=== PATIENT | male | born 1980 | race Caucasian/White ===

== ENCOUNTER 2021-05-25 19:02 | Inpatient (IN) | payer OTHER ==
[2021-05-25] MEDS ORDERED: MORPHINE SULFATE 4 MG/ML SYRINGE IV STA (19:44)
[2021-05-25] MEDS ORDERED: SODIUM CHLORIDE 0.9% 1,000 ML IV STA (19:44)
--- NOTE | 2021-05-25 19:46 | ED ---
General Adult HPI - General Chief complaint: Abdominal Pain Stated complaint: Abd Pain Time Seen by Provider: 05/25/21 19:08 Source: patient, EMS Mode of arrival: EMS Limitations: no limitations - History of Present Illness Initial comments: Dictation was produced using [employer] dictation software. please excuse any grammatical, word or spelling errors. Chief Complaint: 41-year-old male withpast medical history presents to the emergency department for 3 days of abdominal pain History of Present Illness: Patient's 41-year-old male presents with worsening abdominal pain. States that the pain is to his lower suprapubic area. Patient states that the pain is severe. States that he is severely nauseated Tolerate any sort of oral intake. Patient denies any fever. States pain is nonradiating. He reports having tested positive for covid 19 8 days ago. He states he did not have any symptoms at that time. The ROS documented in this emergency department record has been reviewed and confirmed by me. Those systems with pertinent positive or negative responses have been documented in the HPI. All other systems are other negative and/or noncontributory. PHYSICAL EXAM: General Impression: Alert and oriented x3, acute distress second to pain, ashen HEENT: Normocephalic atraumatic, extra-ocular movements intact, pupils equal and reactive to light bilaterally, mucous membranes moist. Cardiovascular: Heart regular rate and rhythm Chest: Able to complete full sentences, no retractions, no tachypnea Abdomen: Tympanitic, guarding Musculoskeletal: Pulses present and equal in all extremities, no peripheral edema Motor: no focal deficits noted Neurological: CN II-XII grossly intact, no focal motor or sensory deficits noted Skin: Intact with no visualized rashes Psych: Normal affect and mood ED course: 41-year-old male presents emergency department for abdominal pain. Patient having severe symptoms. Vital signs upon arrival shows heart rate of 107, rest of vital signs within acceptable limits. There is suspicion for surgical abdomen Laboratory evaluation obtained. Leukocytosis of 11.5. Sodium 129. Mild gap acidosis with a bicarb of 18 and gap of 17. Slightly elevated renal markers. Rest of labs unremarkable. Computed tomography scan of the abdomen and pelvis shows inflammatory changes in the right lower quadrant with pneumoperitoneum. Case is discussed with Dr. Marsh who requests that patient restart antibiotics, IV fluids and that repeat labs be drawn at 6 in the morning. According to general surgeon there is no definitive surgical intervention at this time. - Related Data Allergies Allergy/AdvReac Type Severity Reaction Status Date / Time acetaminophen [From Tylenol] Allergy Chest Pain Verified 05/25/21 19:19 Review of Systems ROS Statement: Those systems with pertinent positive or pertinent negative responses have been documented in the HPI. ROS Other: All systems not noted in ROS Statement are negative. Past Medical History Past Medical History: No Reported History Past Surgical History: Hernia Repair Smoking Status: Former smoker Past Alcohol Use History: Occasional Past Drug Use History: None Reported General Exam Limitations: no limitations Course Vital Signs 05/25/21 19:14 Temperature 98.6 F Pulse Rate 107 H Respiratory 22 Rate Blood Pressure 127/73 O2 Sat by Pulse 96 Oximetry Medical Decision Making - Lab Data Result diagrams: 05/25/21 20:07 05/25/21 20:07 Lab Results 05/25/21 05/25/21 Range/Units 20:07 20:07 WBC 11.5 H (3.8-10.6) k/uL RBC 5.31 (4.30-5.90) m/uL Hgb 15.0 (13.0-17.5) gm/dL Hct 45.1 (39.0-53.0) % MCV 84.8 (80.0-100.0) fL MCH 28.2 (25.0-35.0) pg MCHC 33.2 (31.0-37.0) g/dL RDW 14.0 (11.5-15.5) % Plt Count 331 (150-450) k/uL MPV 7.7 Neutrophils % 91 % Lymphocytes % 3 % Monocytes % 4 % Eosinophils % 0 % Basophils % 0 % Neutrophils # 10.4 H (1.3-7.7) k/uL Lymphocytes # 0.4 L (1.0-4.8) k/uL Monocytes # 0.5 (0-1.0) k/uL Eosinophils # 0.0 (0-0.7) k/uL Basophils # 0.0 (0-0.2) k/uL Sodium 129 L (137-145) mmol/L Potassium 3.5 (3.5-5.1) mmol/L Chloride 94 L (98-107) mmol/L Carbon Dioxide 18 L (22-30) mmol/L Anion Gap 17 mmol/L BUN 27 H (9-20) mg/dL Creatinine 1.35 H (0.66-1.25) mg/dL Est GFR (CKD-EPI)AfAm 75 (>60 ml/min/1.73 sqM) Est GFR (CKD-EPI)NonAf 65 (>60 ml/min/1.73 sqM) Glucose 149 H (74-99) mg/dL Calcium 8.4 (8.4-10.2) mg/dL Total Bilirubin 1.5 H (0.2-1.3) mg/dL AST 48 (17-59) U/L ALT 32 (4-49) U/L Alkaline Phosphatase 99 (38-126) U/L Total Protein 7.2 (6.3-8.2) g/dL Albumin 3.6 (3.5-5.0) g/dL Lipase 113 (23-300) U/L Critical Care Time Critical Care Time: Yes Total Critical Care Time: 33 Disposition Clinical Impression: Pneumoperitoneum, Surgical abdomen Disposition: ADMITTED IP TO THIS [facility] Condition: Critical Referrals: Erin Luna MD [Primary Care Provider] - 1-2 days
[2021-05-25 20:16] LABS: Basophils % (A) 0 %; Eosinophils % (A) 0 %; HCT 45.1 % (39.0-53.0); Lymphocytes # (A) 0.4 k/uL (1.0-4.8); Lymphocytes % (A) 3 %; MCH 28.2 pg (25.0-35.0); MCHC 33.2 g/dL (31.0-37.0); MCV 84.8 fL (80.0-100.0); Mean Platelet Volume 7.7; Monocytes # (A) 0.5 k/uL (0-1.0); Monocytes % (A) 4 %; Neutrophils # (A) 10.4 k/uL (1.3-7.7); Neutrophils % (A) 91 %; Platelet Count 331 k/uL (150-450); RBC 5.31 m/uL (4.30-5.90); WBC 11.5 k/uL (3.8-10.6)
[2021-05-25] MEDS ORDERED: PIPERACILLIN-TAZOBACTAM 3.375 GM in SODIUM CHLORIDE 0.9% 100 ML IVPB STA (20:28)
[2021-05-25 20:32] LABS: Albumin 3.6 g/dL (3.5-5.0); Calcium 8.4 mg/dL (8.4-10.2); Potassium 3.5 mmol/L (3.5-5.1); Total Bilirubin 1.5 mg/dL (0.2-1.3); Total Protein 7.2 g/dL (6.3-8.2)
[2021-05-25] MEDS ORDERED: NALOXONE 0.4 MG/ML 1 ML VIAL IV PRN (20:59)
--- NOTE | 2021-05-25 21:05 | CT ---
EXAMINATION TYPE: CT abdomen pelvis w con DATE OF EXAM: 05/25/2021 COMPARISON: None HISTORY: lower anterior abdominal pain CT DLP: 2792.4 mGycm, Automated Exposure Control for Dose Reduction was Utilized. CONTRAST: CT scan of the abdomen and pelvis is performed with oral and with IV Contrast, patient injected with 100 mL of Isovue 300. FINDINGS: LUNG BASES: Scattered diffuse patchy, groundglass like opacities and nodular opacities. INCLUDED CARDIAC STRUCTURES: No cardiomegaly or pericardial effusion. LIVER: Nodular contour. Somewhat atrophic. GALLBLADDER : No significant abnormality is appreciated. BILIARY TREE: No abnormal biliary tree dilation. PANCREAS: No significant abnormality is seen. SPLEEN: No significant abnormality is seen. 1.2 cm round opacity lateral to the spleen may represent a splenule. ADRENALS: No significant abnormality is seen. KIDNEYS AND URETERS: No significant abnormality is seen. URINARY BLADDER: No significant abnormality is appreciated. PROSTATE: Unremarkable. GASTROINTESTINAL SYSTEM: No intestinal obstruction seen. No terminal ileal thickening. Irregularity i s seen in the cecum and proximal ascending colon. The appendix is not definitely identified. No diver ticulosis seen. HERNIAS: Small left fat-containing inguinal hernia. PERITONEUM/MESENTRY: There is large pneumoperitoneum. There is a 6 mm calculus in the right mid abdom en (image 48 series 201) series. Significant mesenteric stranding in the mid and lower abdomen and mo re to the right. There is free loculated fluid in the right mid and lower abdomen measuring up to 3.5 cm as annotated on the CT. The larger fluid collection (series 201 image 64) has an air-fluid level but no peripheral enhancement. Multiple prominent lymph nodes are scattered throughout the right mid and lower abdomen. LYMPH NODES: Prominent lymph nodes scattered the right mid and lower abdomen. No enlarged retroperito beltran or pelvic lymph nodes seen. MAJOR VASCULAR STRUCTURES: Nonaneurysmal aorta. Unremarkable inferior vena cava. OSSEOUS STRUCTURES: No significant abnormality is seen. Subchondral cyst in the left acetabulum. Left sacroiliac joint sclerosis. Endplate degenerative changes T11-12 and L5-S1. Mild facet joint arthrop athy lower lumbar spine with questionable bilateral pars interarticularis defect of L4. No Significan t soft tissue abnormality seen. IMPRESSION: 1. Pneumoperitoneum, free abdominal fluid in the right lower abdomen with air-fluid level but no zander pheral enhancement, nonvisualized appendix, small free-floating calcification measuring 6 mm in the r ight mid abdomen and mesenteric inflammation or infection. Findings concerning for either acute perforated appendix with appendicolith and/or bowel perforation, no diverticulosis and no terminal ileal thickening though it is difficult to exclude inflammatory berto wel disease. Abdominal phlegmon/abscess cannot be excluded. 2. Lower lung findings concerning for multifocal pneumonia. 3. Left SI joint inflammatory changes. Dr. Watson called Dr. Manzano with above findings. Communication acknowledged.
[2021-05-25] MEDS: SODIUM CHLORIDE 0.9% 1,000 ML IV SCH (21:37)
[2021-05-25] MEDS ORDERED: MORPHINE SULFATE 4 MG/ML SYRINGE IVP PRN (22:24)
[2021-05-25] MEDS: IBUPROFEN 400 MG TAB PO PRN (23:37)
[2021-05-26 05:18] LABS: Basophils % (A) 0 %; Eosinophils % (A) 0 %; HCT 40.9 % (39.0-53.0); HGB 13.1 gm/dL (13.0-17.5); Lymphocytes # (A) 0.5 k/uL (1.0-4.8); Lymphocytes % (A) 6 %; MCH 27.7 pg (25.0-35.0); MCV 86.5 fL (80.0-100.0); Mean Platelet Volume 7.5; Monocytes # (A) 0.6 k/uL (0-1.0); Monocytes % (A) 6 %; Neutrophils % (A) 85 %; Platelet Count 269 k/uL (150-450); RBC 4.73 m/uL (4.30-5.90); RDW 13.9 % (11.5-15.5); WBC 9.4 k/uL (3.8-10.6)
[2021-05-26 05:26] LABS: Calcium 8.1 mg/dL (8.4-10.2); Potassium 3.6 mmol/L (3.5-5.1)
[2021-05-26] MEDS: SODIUM CHLORIDE 0.9% 1,000 ML IV SCH ×4 (05:55→22:00)
[2021-05-26] MEDS: ONDANSETRON 4 MG/2 ML VIAL IVP PRN ×2 (09:01→17:28)
[2021-05-26] MEDS: HYDROmorphone 1 MG/ML 1 ML SYRINGE IVP PRN ×5 (09:01→22:33)
[2021-05-26] MEDS: PIPERACILLIN-TAZOBACTAM 3.375 GM in SODIUM CHLORIDE 0.9% 100 ML IVPB SCH ×3 (09:27→23:30)
--- NOTE | 2021-05-26 13:01 | P.GSHP ---
History of Present Illness H&P Date: 05/26/21 Chief Complaint: right lower quadrant abdominal pain this 41-year-old male who has a 5 day history of abdominal pain. Patient was diagnosed with COVID-19 approximately 10 days ago. he states on Sunday he developed abdominal pain. Patient had some worsening abdominal pain yesterday. He was seen in the emergency room. His CAT scan is suggestive of a chronic appendicitis with possible perforation. Patient's white count is normal. He states his pain is improved. He is hungry. He is requesting some th to eat and drink. Past Medical History Past Medical History: No Reported History History of Any Multi-Drug Resistant Organisms: None Reported Past Surgical History: Hernia Repair Past Anesthesia/Blood Transfusion Reactions: No Reported Reaction Past Psychological History: No Psychological Hx Reported Smoking Status: Former smoker Past Alcohol Use History: Occasional Past Drug Use History: None Reported Medications and Allergies Home Medications Medication Instructions Recorded Confirmed Type Ibuprofen [Motrin] 800 mg PO Q8H PRN 05/25/21 05/25/21 History Allergies Allergy/AdvReac Type Severity Reaction Status Date / Time acetaminophen [From Tylenol] Allergy Chest Pain Verified 05/25/21 21:37 Surgical - Exam Vital Signs Temp Pulse Resp BP Pulse Ox 98.6 F 107 H 22 127/73 96 05/25/21 19:14 05/25/21 19:14 05/25/21 19:14 05/25/21 19:14 05/25/21 19:14 - General well developed, no distress - Eyes PERRL - ENT normal pinna - Neck no masses - Respiratory patient's cough - Cardiovascular Rhythm: regular - Abdomen abdomen is obese. His BMI is 44. Abdomen is soft with some mild diffuse ten derness. There is no rebound or guarding. Abdomen: soft Results - Labs 05/26/21 04:53 05/26/21 04:53 Abnormal Lab Results - Last 24 Hours (Table) 05/25/21 05/25/21 05/25/21 Range/Units 20:07 20:07 21:45 WBC 11.5 H (3.8-10.6) k/uL Neutrophils # 10.4 H (1.3-7.7) k/uL Lymphocytes # 0.4 L (1.0-4.8) k/uL Sodium 129 L (137-145) mmol/L Chloride 94 L (98-107) mmol/L Carbon Dioxide 18 L (22-30) mmol/L BUN 27 H (9-20) mg/dL Creatinine 1.35 H (0.66-1.25) mg/dL Glucose 149 H (74-99) mg/dL Calcium (8.4-10.2) mg/dL Total Bilirubin 1.5 H (0.2-1.3) mg/dL Coronavirus (PCR) Detected A (Not Detectd) 05/26/21 05/26/21 Range/Units 04:53 04:53 WBC (3.8-10.6) k/uL Neutrophils # 8.0 H (1.3-7.7) k/uL Lymphocytes # 0.5 L (1.0-4.8) k/uL Sodium 132 L (137-145) mmol/L Chloride (98-107) mmol/L Carbon Dioxide 20 L (22-30) mmol/L BUN 29 H (9-20) mg/dL Creatinine 1.30 H (0.66-1.25) mg/dL Glucose 136 H (74-99) mg/dL Calcium 8.1 L (8.4-10.2) mg/dL Total Bilirubin (0.2-1.3) mg/dL Coronavirus (PCR) (Not Detectd) Diabetes panel 05/25/21 05/26/21 Range/Units 20:07 04:53 Sodium 129 L 132 L (137-145) mmol/L Potassium 3.5 3.6 (3.5-5.1) mmol/L Chloride 94 L 101 (98-107) mmol/L Carbon Dioxide 18 L 20 L (22-30) mmol/L BUN 27 H 29 H (9-20) mg/dL Creatinine 1.35 H 1.30 H (0.66-1.25) mg/dL Glucose 149 H 136 H (74-99) mg/dL Calcium 8.4 8.1 L (8.4-10.2) mg/dL AST 48 (17-59) U/L ALT 32 (4-49) U/L Alkaline Phosphatase 99 (38-126) U/L Total Protein 7.2 (6.3-8.2) g/dL Albumin 3.6 (3.5-5.0) g/dL Calcium panel 05/25/21 05/26/21 Range/Units 20:07 04:53 Calcium 8.4 8.1 L (8.4-10.2) mg/dL Albumin 3.6 (3.5-5.0) g/dL Pituitary panel 05/25/21 05/26/21 Range/Units 20:07 04:53 Sodium 129 L 132 L (137-145) mmol/L Potassium 3.5 3.6 (3.5-5.1) mmol/L Chloride 94 L 101 (98-107) mmol/L Carbon Dioxide 18 L 20 L (22-30) mmol/L BUN 27 H 29 H (9-20) mg/dL Creatinine 1.35 H 1.30 H (0.66-1.25) mg/dL Glucose 149 H 136 H (74-99) mg/dL Calcium 8.4 8.1 L (8.4-10.2) mg/dL Adrenal panel 05/25/21 05/26/21 Range/Units 20:07 04:53 Sodium 129 L 132 L (137-145) mmol/L Potassium 3.5 3.6 (3.5-5.1) mmol/L Chloride 94 L 101 (98-107) mmol/L Carbon Dioxide 18 L 20 L (22-30) mmol/L BUN 27 H 29 H (9-20) mg/dL Creatinine 1.35 H 1.30 H (0.66-1.25) mg/dL Glucose 149 H 136 H (74-99) mg/dL Calcium 8.4 8.1 L (8.4-10.2) mg/dL Total Bilirubin 1.5 H (0.2-1.3) mg/dL AST 48 (17-59) U/L ALT 32 (4-49) U/L Alkaline Phosphatase 99 (38-126) U/L Total Protein 7.2 (6.3-8.2) g/dL Albumin 3.6 (3.5-5.0) g/dL Assessment and Plan Assessment: 5 day history of abdominal pain. Patient most likely has appendicitis. Due to the chronicity of his appendicitis he will be given IV antibiotics. We will plan for interval appendectomy once the inflammation has improved. If his condition worsens he may need exploratory laparotomy.
[2021-05-26] MEDS ORDERED: HEPARIN SODIUM,PORCINE/PF 5,000 UNIT/0.5 ML SYRINGE SQ SCH (14:30)
--- NOTE | 2021-05-26 15:44 | XR ---
EXAMINATION TYPE: XR chest 1V portable DATE OF EXAM: 05/26/2021 Comparison: None Clinical History: 41-year-old male covid Findings: Low lung volumes. Heart borderline enlarged. Crowded vascular markings. Bilateral interstitial opacit ies. No sizable effusion. Impression: Hypoventilatory changes and bilateral interstitial COVID infiltrates.
[2021-05-26] MEDS ORDERED: SODIUM CHLORIDE 0.9% 1,000 ML IV ONE (15:50)
[2021-05-26 16:02] LABS: INR 1.2 (<1.2); Partial Thromboplastin Time 29.7 sec (22.0-30.0); Prothrombin Time 12.5 sec (9.0-12.0)
[2021-05-26] MEDS: ENOXAPARIN 40 MG/0.4 ML SYRINGE SQ SCH (16:16)
[2021-05-26 16:36] LABS: C Reactive Protein 53.8 mg/dL (<1.0)
[2021-05-26] MEDS: HYDROmorphone 0.5 MG/0.5 ML SYRINGE IVP PRN ×2 (17:15→20:32)
[2021-05-26 18:03] LABS: African American GFR (CKD) 86 (>60 ml/min/1.73 sqM); Anion Gap 16 mmol/L; Blood Urea Nitrogen 34 mg/dL (9-20); Calcium 8.4 mg/dL (8.4-10.2); Carbon Dioxide 19 mmol/L (22-30); Chloride 101 mmol/L (98-107); Glucose 136 mg/dL (74-99); Non-African American GFR(CKD) 74 (>60 ml/min/1.73 sqM); Potassium 4.3 mmol/L (3.5-5.1); Sodium 136 mmol/L (137-145)
[2021-05-26] MEDS: PANTOPRAZOLE 40 MG/10 ML VIAL IVP SCH (19:05)
--- NOTE | 2021-05-26 19:05 | CT ---
EXAMINATION TYPE: CT chest wo con DATE OF EXAM: 05/26/2021 COMPARISON: Correlation CT abdomen pelvis. 14/02/2021 HISTORY: 41-year-old male Covid pneumonia. TECHNIQUE: Contiguous axial scanning of the chest without IV contrast. Coronal and sagittal reconstru ctions performed. CT DLP: 759.3 mGycm Automated exposure control for dose reduction was used. FINDINGS: Heart normal size without pericardial effusion. Aorta normal caliber with some branching anatomy. Asymmetrically larger left lobe of the thyroid gland, possibly secondary to an underlying 2.6 cm nodu le. This should be further evaluated with thyroid ultrasound. No thoracic lymphadenopathy by CT size criteria. Bilateral reticular and patchy groundglass changes. Findings concerning for bilateral COVID pneumonia . Focal right infrahilar consolidation, axial image 22. Breathing motion artifact. No pleural effusio n. Redemonstrated mild pneumoperitoneum in the visualized upper abdomen. Marked distention of the stomac h with air-fluid level. Gallbladder collapsed. Asymmetric elevation right hemidiaphragm with overall low lung volumes. Bones: No osseous destructive process. IMPRESSION: 1. ASYMMETRIC ELEVATION RIGHT HEMIDIAPHRAGM AND OVERALL VERY LOW LUNG VOLUMES. CORRELATE FOR RESTRICT KIMBERLY LUNG DISEASE SECONDARY TO LARGE BODY HABITUS. 2. RETICULAR CHANGES AND PATCHY BILATERAL GROUNDGLASS FINDINGS CONCERNING FOR BILATERAL COVID PNEUMON IA. 3. REDEMONSTRATED MILD PNEUMOPERITONEUM IN THE VISUALIZED UPPER ABDOMEN. HOLLOW VISCUS PERFORATION AN D LEAK IN THE RIGHT LOWER QUADRANT ADDRESSED ON THE 05/25/2021 CT. 4. NONEMERGENT THYROID ULTRASOUND TO ASSESS FOR POTENTIAL 2.6 CM LEFT THYROID NODULE. 5. PROMINENT DISTENTION OF THE STOMACH. PROMINENT DISTENDED SMALL BOWEL LOOPS SEEN ON THE TRANSMISSION CALIBRATION ENGINEER IMAGE . CORRELATE FOR MARKED GENERALIZED ILEUS.
--- NOTE | 2021-05-26 19:56 | US ---
EXAMINATION TYPE: US venous doppler duplex LE DATE OF EXAM: 05/26/2021 7:41 PM COMPARISON: NONE CLINICAL HISTORY: dvt. Shortness of breath. No hx of DVT. SIDE PERFORMED: Bilateral TECHNIQUE: The lower extremity deep venous system is examined utilizing real time linear array sonog augusto with graded compression, doppler sonography and color-flow sonography. VESSELS IMAGED: Common Femoral Vein Deep Femoral Vein Greater Saphenous Vein * Femoral Vein Popliteal Vein Small Saphenous Vein * Proximal Calf Veins (* superficial vessels) Limited due to body habitus. Right Leg: No evidence of DVT in veins imaged at this time. Left Leg: No evidence of DVT in veins imaged at this time. Bilateral lower extremity peripheral vascular arterial disease. IMPRESSION: No sonographic evidence for deep vein thrombosis in the bilateral lower extremities. Peripheral arterial vascular disease.
[2021-05-26 20:24] LABS: Appearance,Urine Cloudy (Clear); Bilirubin,Urine 1+ (Negative); Blood,Urine Large (Negative); Color,Urine Light Brown; Glucose,Urine (UA) Trace (Negative); Ketones,Urine Trace (Negative); Leukocyte Esterase,Urine Negative (Negative); Mucus,Urine Rare /hpf; Nitrite,Urine Negative (Negative); Protein,Urine 2+ (Negative); RBC,Urine 1 /hpf (0-5); Squamous Epithelial Cell,Urine <1 /hpf (0-4); WBC,Urine 3 /hpf (0-5)
[2021-05-26 20:27] LABS: Specific Gravity,Urine 1.049 (1.001-1.035)
--- NOTE | 2021-05-26 20:29 | CONS ---
CONSULTATION DATE OF SERVICE: 05/26/2021. REASON FOR CONSULTATION: Advice regarding Covid 19 and other multiple medical issues requested by Dr. Marsh. HISTORY OF PRESENT ILLNESS: This 41-year-old gentleman with a past medical history of multiple medical problems hernia surgery, being followed by Dr. Luna in the outpatient setting, was not feeling well over the past several days. The patient apparently has abdominal pain which is in the lower part, for the last 3 days at least. The patient has also suprapubic pain. Patient also had some nausea. The patient not have any fever. The patient was positive for Covid about a week ago and the patient was admitted for further evaluation and treatment. White count is 11.5, sodium was 129, creatinine was 1.35. Covid 19 was positive again and abdominal/pelvis CAT scan which was done in the ER which was reviewed by me personally, showed evidence of pneumoperitoneum with free abdominal gas in the right lower abdomen with no peripheral enhancement and some eccentric inflammation or infection is also considered. Perforated appendix was suspected and Dr. Marsh is following the patient closely with conservative line of management for now. The lower lung findings are suggestive of multifocal pneumonia as well as and some left SA. Joints also showed some inflammatory changes. Patient admitted to the hospital for further evaluation and treatment. There is no history of fever, rigors, chills at this time. PAST MEDICAL HISTORY: History of recent Covid, hernia. MEDICATIONS: Home medications prior to admission, Motrin p.r.n. ALLERGIES: TYLENOL. FAMILY HISTORY: No history of heart disease or strokes in the family. SOCIAL HISTORY: Previous history of smoking. Occasional alcohol intake. REVIEW OF SYSTEMS: ENT: No diminished vision. No diminished hearing. CARDIOVASCULAR system: No angina or palpitations. RESPIRATION: As mentioned earlier. GI: As mentioned earlier. : No dysuria. NERVOUS SYSTEM: No numbness or weakness. ALLERGY/IMMUNOLOGY: No asthma or hayfever. MUSCULOSKELETAL: As mentioned earlier. HEMATOLOGY/ONCOLOGY: No history of anemia. ENDOCRINE: No history of diabetes or hypothyroidism. CONSTITUTIONAL: As mentioned earlier. DERMATOLOGY: Negative. RHEUMATOLOGY: Negative. PSYCHIATRIC: As mentioned earlier. PHYSICAL EXAMINATION: Alert and oriented times three. Pulse is 86, blood pressure 112/75. Respirations 16, temperature 97.7, T-max 100 degrees. Pulse ox 92% on room air. HEENT: Conjunctivae normal. Oral mucosa moist. NECK is no jugular venous distention. No carotid bruit. No lymph node enlargement. CARDIOVASCULAR systems:L S1, S2 muffled. RESPIRATION: Few scattered rhonchi. ABDOMEN: Soft, obese, nontender. No mass palpable. Mild diffuse discomfort on palpation. No guarding. No rigidity. Otherwise, bowel sounds diminished. LEGS: No edema. No swelling. NERVOUS SYSTEM: Higher functions as mentioned earlier. Moves all 4 limbs. No focal motor or sensory deficits. LYMPHATICS: No lymph nodes palpable in the neck, axillae or groin. SKIN: No ulcer, no rashes and no bleeding. JOINTS: No active deforming arthropathy. LAB STUDIES: WBC 11.3, hemoglobin 15. Sodium 110, potassium 3.5, creatinine is 1.35. Bilirubin is 1.5. ASSESSMENT: 1. Possible acute appendiceal perforation with acute abdomen. 2. Acute COVID-19 infection with acute bibasilar pneumonia. 3. Hyponatremia. 4. Increased creatinine with acute renal failure, acute tubular necrosis. 5. Lymphopenia. 6. Increased WBC. 7. History of hernia repair. 8. History of nicotine dependence. 9. Obesity with body mass of 44.6. 10.FULL CODE. RECOMMENDATIONS AND DISCUSSION: This 41-year-old gentleman who presented with multiple complex medical issues, we will monitor the patient closely, continue the current medications, management and symptomatic treatment. We will initiate broad-spectrum IV antibiotics and IV fluids. Repeat labs. I would also recommend inflammatory markers of Covid 19, bronchodilators and closely monitor. Chest x-ray and if the D-dimer is elevated, I would also recommend a CT angio chest. The prognosis is guarded because of multiple complex medical issues. Further recommendations to follow. Discussed with Dr. Marsh. We will hold off on to the ID eval per Dr. Marsh for now and we will continue to monitor. Prognosis guarded. Further recommendations to follow. MMODL / IJN: [id number] / MTDD
[2021-05-26] MEDS ORDERED: METOPROLOL SUCCINATE (ER) 25 MG TAB.ER.24H PO STA (21:03)
--- NOTE | 2021-05-26 21:04 | XR ---
EXAMINATION TYPE: XR chest 1V portable DATE OF EXAM: 05/26/2021 COMPARISON: NONE HISTORY: 41 years Male. STUDY INDICATION GIVEN: SOB . TECHNIQUE: AP upright chest radiograph IMPRESSION: Similar-appearing bibasilar right greater than left patchy and interstitial opacities. Mild cardiomegaly. No pneumothorax or large effusion. Osseous structures are similar in appearance to prior.
[2021-05-27] MEDS: HYDROmorphone 1 MG/ML 1 ML SYRINGE IVP PRN ×4 (02:04→20:47)
[2021-05-27 05:33] LABS: Basophils % (A) 0 %; Eosinophils % (A) 0 %; HGB 13.5 gm/dL (13.0-17.5); Hypochromasia Moderate; Lymphocytes # (A) 0.3 k/uL (1.0-4.8); Lymphocytes % (A) 3 %; MCH 28.6 pg (25.0-35.0); MCHC 31.5 g/dL (31.0-37.0); MCV 90.8 fL (80.0-100.0); Mean Platelet Volume 7.9; Monocytes # (A) 0.6 k/uL (0-1.0); Monocytes % (A) 5 %; Neutrophils # (A) 9.5 k/uL (1.3-7.7); Neutrophils % (A) 90 %; Platelet Count 374 k/uL (150-450); RBC 4.73 m/uL (4.30-5.90); RDW 14.5 % (11.5-15.5); WBC 10.6 k/uL (3.8-10.6)
[2021-05-27 05:49] LABS: ALT 40 U/L (4-49); AST 80 U/L (17-59); African American GFR (CKD) 57 (>60 ml/min/1.73 sqM); Albumin 2.9 g/dL (3.5-5.0); Albumin/Globulin Ratio 0.9; Alkaline Phosphatase 66 U/L (38-126); Anion Gap 17 mmol/L; Blood Urea Nitrogen 43 mg/dL (9-20); Calcium 8.1 mg/dL (8.4-10.2); Carbon Dioxide 17 mmol/L (22-30); Chloride 104 mmol/L (98-107); Globulin 3.2 g/dL; Glucose 162 mg/dL (74-99); Non-African American GFR(CKD) 49 (>60 ml/min/1.73 sqM); Sodium 138 mmol/L (137-145); Total Bilirubin 3.3 mg/dL (0.2-1.3); Total Protein 6.1 g/dL (6.3-8.2)
[2021-05-27] MEDS: PANTOPRAZOLE 40 MG/10 ML VIAL IVP SCH ×2 (08:13→20:49)
[2021-05-27] MEDS: PIPERACILLIN-TAZOBACTAM 3.375 GM in SODIUM CHLORIDE 0.9% 100 ML IVPB SCH ×2 (08:13→16:15)
[2021-05-27] MEDS: ENOXAPARIN 40 MG/0.4 ML SYRINGE SQ SCH (08:13)
--- NOTE | 2021-05-27 10:29 | NM ---
EXAMINATION TYPE: NM pul perfusion DATE OF EXAM: 05/27/2021 COMPARISON: Radiographs 05/26/2021 HISTORY: 41-year-old male with shortness of breath, assess for PE TECHNIQUE: Following administration of 5.4 mCi Tc 99m MAA. Images obtained post injection. FINDINGS: Very low lung volumes noted. No discrete perfusion defect seen. IMPRESSION: Marked hypoventilatory changes. Very low probability for pulmonary embolus.
[2021-05-27] MEDS ORDERED: SODIUM CHLORIDE 0.9% 2,000 ML IV ONE (11:45)
[2021-05-27] MEDS: SODIUM CHLORIDE 0.9% 1,000 ML IV SCH ×4 (12:18→20:57)
--- NOTE | 2021-05-27 12:23 | P.CRDCN ---
History of Present Illness Consult date: 05/27/21 Consult reason: other (tachycardia) History of present illness: patient is a 41-year-old male admitted with pneumoperitoneum. He has no known cardiac medical history. 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 We were consulted for an abnormal EKG. EKG shows sinus tachycardia with poor R wave progression and nonspecific ST-T wave changes and is negative for ischemic changes. Patient is Covid positive, he is found to have chronic appendicitis with possible perforation and possible sepsis. Patient's sinus tachycardia is believed to be related to his appendicitis and possible sepsis. patient was given a one-time dose of Lopressor 25 mg last night. Will start patient on Lopressor 25 mg twice a day. an echocardiogram was performed and reviewed, patient has a normal LV function and no abnormal wall motion or valvular disease. Patient will be placed on telemetry and troponins will be drawn 1 to rule out ischemia. Diagnostics: blood pressure 116/74, heart rate 130, 93% on 3 L nasal cannula, afebrile Labs-hemoglobin 13.5, potassium 4, BUN 43, creatinine 1.7, plasma lactic acid 3.6, AST 3.3, ALt 80 Chest x-ray shows patchy and interstitial opacities mild Cardiology Venous Doppler was negative bilaterally for DVTs Chest CT showed ground glass findings correlating bilateral Covid pneumonia, mild pneumoperitoneum. Review of Systems REVIEW OF SYSTEMS At the time of my exam: CONSTITUTIONAL: Denies fever or chills. EYES: Negative for vision changes ENT: Negative for hearing loss CARDIOVASCULAR: Denies chest pain, shortness of breath, diaphoresis, orthopnea, PND or palpitations. VASCULAR: Denies edema RESPIRATORY: Denies cough. GASTROINTESTINAL: Denies abdominal pain, diarrhea, constipation, nausea or vomiting. MUSCULOSKELETAL: Denies myalgias. NEUROLOGIC: Denies numbness, tingling, headache or weakness. ENDOCRINE: Denies fatigue, weight change, polydipsia or polyurina. GENITOURINARY: Denies burning, hematuria or urgency with micturation. HEMATOLOGIC: Denies history of anemia or bleeding. DERMATOLOGY: Denies rash or skin sores PSYCH: Negative for depression or hallucinations. Past Medical History Past Medical History: No Reported History History of Any Multi-Drug Resistant Organisms: None Reported Past Surgical History: Hernia Repair Past Anesthesia/Blood Transfusion Reactions: No Reported Reaction Past Psychological History: No Psychological Hx Reported Smoking Status: Former smoker Past Alcohol Use History: Occasional Past Drug Use History: None Reported Medications and Allergies Home Medications Medication Instructions Recorded Confirmed Type Ibuprofen [Motrin] 800 mg PO Q8H PRN 05/25/21 05/25/21 History Allergies Allergy/AdvReac Type Severity Reaction Status Date / Time acetaminophen [From Tylenol] Allergy Chest Pain Verified 05/25/21 21:37 Physical Exam Vitals: Vital Signs Temp Pulse Resp BP Pulse Ox 05/27/21 10:00 97.6 F 104 H 19 116/74 93 L 05/27/21 08:13 130 H 05/27/21 06:19 97.8 F 130 H 108/62 95 05/27/21 04:12 97.7 F 05/27/21 02:00 122 H 105/69 95 05/26/21 22:20 97.7 F 137 H 135/82 93 L 05/26/21 20:30 132 H 20 05/26/21 19:43 97.7 F 27 H 126/85 93 L 05/26/21 19:40 129 H 05/26/21 18:31 97.8 F 93 19 137/85 92 L 05/26/21 15:20 113 H 96 05/26/21 14:00 97.7 F 101 H 18 131/92 90 L Intake and Output 05/26/21 05/27/21 05/27/21 22:59 06:59 14:59 Intake Total 2760 Output Total 300 Balance 2760 -300 Intake: Intake, IV Titration 2760 Amount Piperacillin-Tazobactam 3 200 .375 gm In Sodium Chloride 0.9% 100 ml @ 25 mls/hr IVPB Q8HR [facility] Rx# :[id number] Sodium Chloride 0.9% 1, 1560 000 ml @ 130 mls/hr IV . Q7H42M [facility] Rx#:[id number] Sodium Chloride 0.9% 1, 1000 000 ml @ 999 mls/hr IV . Q1H1M [facility] Rx#:[id number] Output: Urine 300 Other: Voiding Method Urinal # Voids 2 PHYSICAL EXAM- limited due to Covid positive VITAL SIGNS: Reviewed. GENERAL: Well-developed in no acute distress. HEENT: Head is normocephalic. RESPIRATORY: Respirations even and unlabored. CARDIO: Tachycardia EXTREMITIES: Normal range of motion. NEURO: Orientated to person, time, mood is appropriate Results 05/27/21 05:05 05/27/21 05:05 Cardiac Enzymes 05/26/21 05/27/21 Range/Units 15:32 05:05 AST 80 H (17-59) U/L Lactate Dehydrogenase 637 H (313-618) U/L Coagulation 05/26/21 Range/Units 15:32 PT 12.5 H (9.0-12.0) sec APTT 29.7 (22.0-30.0) sec CBC 05/27/21 Range/Units 05:05 WBC 10.6 (3.8-10.6) k/uL RBC 4.73 (4.30-5.90) m/uL Hgb 13.5 (13.0-17.5) gm/dL Hct 43.0 (39.0-53.0) % Plt Count 374 (150-450) k/uL Comprehensive Metabolic Panel 05/26/21 05/27/21 Range/Units 15:32 05:05 Sodium 136 L 138 (137-145) mmol/L Potassium 4.3 4.0 (3.5-5.1) mmol/L Chloride 101 104 (98-107) mmol/L Carbon Dioxide 19 L 17 L (22-30) mmol/L BUN 34 H 43 H (9-20) mg/dL Creatinine 1.21 1.70 H (0.66-1.25) mg/dL Glucose 136 H 162 H (74-99) mg/dL Calcium 8.4 8.1 L (8.4-10.2) mg/dL AST 80 H (17-59) U/L ALT 40 (4-49) U/L Alkaline Phosphatase 66 (38-126) U/L Total Protein 6.1 L (6.3-8.2) g/dL Albumin 2.9 L (3.5-5.0) g/dL Current Medications Generic Name Dose Route Start Last Admin Trade Name Freq PRN Reason Stop Dose Admin Enoxaparin Sodium 40 mg 05/26/21 14:45 05/27/21 08:13 Enoxaparin 40 Mg/0.4 Ml Syringe SQ 40 mg DAILY [facility] Administration Hydromorphone HCl 0.5 mg 05/26/21 08:38 05/26/21 20:32 Hydromorphone 0.5 Mg/0.5 Ml Syringe IVP 0.5 mg Q2HR PRN Administration Pain Hydromorphone HCl 1 mg 05/26/21 08:38 05/27/21 08:13 Hydromorphone 1 Mg/Ml 1 Ml Syringe IVP 1 mg Q3HR PRN Administration SEVERE PAIN Piperacillin Sod/Tazobactam 100 mls @ 25 mls/hr 05/26/21 08:30 05/27/21 08:13 Sod 3.375 gm/ Sodium Chloride IVPB 25 mls/hr Q8HR [facility] Administration Sodium Chloride 1,000 mls @ 100 mls/hr 05/26/21 21:45 05/26/21 22:00 Saline 0.9% IV Not Given .Q10H [facility] Ibuprofen 400 mg 05/25/21 21:02 05/25/21 23:37 Ibuprofen 400 Mg Tab PO 400 mg TID PRN Administration Fever Metoprolol Tartrate 25 mg 05/27/21 11:00 Metoprolol Tartrate 25 Mg Tab PO BID [facility] Naloxone HCl 0.2 mg 05/25/21 20:59 Naloxone 0.4 Mg/Ml 1 Ml Vial IV Q2M PRN Opioid Reversal Ondansetron HCl 4 mg 05/25/21 22:26 05/26/21 17:28 Ondansetron 4 Mg/2 Ml Vial IVP 4 mg Q6HR PRN Administration Nausea And Vomiting Pantoprazole Sodium 40 mg 05/26/21 21:00 05/27/21 08:13 Pantoprazole 40 Mg/10 Ml Vial IVP 40 mg BID [facility] Administration Intake and Output 05/26/21 05/27/21 05/27/21 22:59 06:59 14:59 Intake Total 2760 Output Total 300 Balance 2760 -300 Intake: Intake, IV Titration 2760 Amount Piperacillin-Tazobactam 3 200 .375 gm In Sodium Chloride 0.9% 100 ml @ 25 mls/hr IVPB Q8HR [facility] Rx# :[id number] Sodium Chloride 0.9% 1, 1560 000 ml @ 130 mls/hr IV . Q7H42M [facility] Rx#:[id number] Sodium Chloride 0.9% 1, 1000 000 ml @ 999 mls/hr IV . Q1H1M [facility] Rx#:[id number] Output: Urine 300 Other: Voiding Method Urinal # Voids 2 12/31/21 05:05 05/27/21 05:05 Assessment and Plan Assessment: Sinus tachycardia related to appendicitis Pneumoperitoneum Covid pneumonia Plan: Start patient on Lopressor 25 mg twice a day Draw troponin 1 Start patient on telemetry monitoring Will continue to follow.
[2021-05-27] MEDS: METOPROLOL TARTRATE 25 MG TAB PO SCH ×2 (12:29→20:48)
--- NOTE | 2021-05-27 13:03 | P.PN ---
Subjective Progress Note Date: 05/27/21 Principal diagnosis: : Pneumonia, history of perforated appendicitis The patient states he feels better today. He states he has less pain. The pain is localized just in the right lower quadrant. There is no diffuse tenderness today. He has passed some gas. He states he is hungry. He wants to eat. Objective - Vital Signs Vital signs: Vital Signs Temp 97.6 F 05/27/21 10:00 Pulse 104 H 05/27/21 10:00 Resp 19 05/27/21 10:00 BP 116/74 05/27/21 10:00 Pulse Ox 93 L 05/27/21 10:00 Intake & Output 05/26/21 05/27/21 05/27/21 18:59 06:59 18:59 Intake Total 2760 Output Total 300 Balance 2760 -300 Intake: Intake, IV Titration 2760 Amount Piperacillin-Tazobactam 3 200 .375 gm In Sodium Chloride 0.9% 100 ml @ 25 mls/hr IVPB Q8HR [facility] Rx# :[id number] Sodium Chloride 0.9% 1, 1560 000 ml @ 130 mls/hr IV . Q7H42M [facility] Rx#:[id number] Sodium Chloride 0.9% 1, 1000 000 ml @ 999 mls/hr IV . Q1H1M [facility] Rx#:[id number] Output: Urine 300 Other: Voiding Method Urinal # Voids 2 - Constitutional General appearance: Present: morbidly obese, no acute distress - Respiratory Details: Patient's productive cough - Gastrointestinal Gastrointestinal Comment(s): Abdomen soft. There is mild tenderness right lower quadrant. There is no rebound or guarding. There is no evidence of any peritoneal signs. - Labs CBC & Chem 7: 05/27/21 05:05 05/27/21 05:05 Labs: Abnormal Lab Results - Last 24 Hours (Table) 05/26/21 05/26/21 05/26/21 Range/Units 15:32 15:32 15:32 Neutrophils # (1.3-7.7) k/uL Lymphocytes # (1.0-4.8) k/uL ESR (0-15) mm/hr PT 12.5 H (9.0-12.0) sec INR 1.2 H (<1.2) D-Dimer 4.17 H (<0.60) mg/L FEU Sodium (137-145) mmol/L Carbon Dioxide (22-30) mmol/L BUN (9-20) mg/dL Creatinine (0.66-1.25) mg/dL Glucose (74-99) mg/dL Plasma Lactic Acid Arvind 2.1 H* (0.7-2.0) mmol/L Calcium (8.4-10.2) mg/dL Ferritin 1393.0 H (22.0-322.0) ng/mL Total Bilirubin (0.2-1.3) mg/dL AST (17-59) U/L Lactate Dehydrogenase 637 H (313-618) U/L C-Reactive Protein 53.8 H (<1.0) mg/dL Total Protein (6.3-8.2) g/dL Albumin (3.5-5.0) g/dL Ur Specific [place] (1.001-1.035) Urine Protein (Negative) Urine Glucose (UA) (Negative) Urine Ketones (Negative) Urine Blood (Negative) Urine Bilirubin (Negative) Urine Mucus (None) /hpf 05/26/21 05/26/21 05/26/21 Range/Units 15:32 15:33 19:35 Neutrophils # (1.3-7.7) k/uL Lymphocytes # (1.0-4.8) k/uL ESR 83 H (0-15) mm/hr PT (9.0-12.0) sec INR (<1.2) D-Dimer (<0.60) mg/L FEU Sodium 136 L (137-145) mmol/L Carbon Dioxide 19 L (22-30) mmol/L BUN 34 H (9-20) mg/dL Creatinine (0.66-1.25) mg/dL Glucose 136 H (74-99) mg/dL Plasma Lactic Acid Arvind 2.7 H* (0.7-2.0) mmol/L Calcium (8.4-10.2) mg/dL Ferritin (22.0-322.0) ng/mL Total Bilirubin (0.2-1.3) mg/dL AST (17-59) U/L Lactate Dehydrogenase (313-618) U/L C-Reactive Protein (<1.0) mg/dL Total Protein (6.3-8.2) g/dL Albumin (3.5-5.0) g/dL Ur Specific [place] (1.001-1.035) Urine Protein (Negative) Urine Glucose (UA) (Negative) Urine Ketones (Negative) Urine Blood (Negative) Urine Bilirubin (Negative) Urine Mucus (None) /hpf 05/26/21 05/26/21 05/27/21 Range/Units 22:27 Unknown 05:05 Neutrophils # 9.5 H (1.3-7.7) k/uL Lymphocytes # 0.3 L (1.0-4.8) k/uL ESR (0-15) mm/hr PT (9.0-12.0) sec INR (<1.2) D-Dimer (<0.60) mg/L FEU Sodium (137-145) mmol/L Carbon Dioxide (22-30) mmol/L BUN (9-20) mg/dL Creatinine (0.66-1.25) mg/dL Glucose (74-99) mg/dL Plasma Lactic Acid Arvind 2.8 H* (0.7-2.0) mmol/L Calcium (8.4-10.2) mg/dL Ferritin (22.0-322.0) ng/mL Total Bilirubin (0.2-1.3) mg/dL AST (17-59) U/L Lactate Dehydrogenase (313-618) U/L C-Reactive Protein (<1.0) mg/dL Total Protein (6.3-8.2) g/dL Albumin (3.5-5.0) g/dL Ur Specific [place] 1.049 H (1.001-1.035) Urine Protein 2+ H (Negative) Urine Glucose (UA) Trace H (Negative) Urine Ketones Trace H (Negative) Urine Blood Large H (Negative) Urine Bilirubin 1+ H (Negative) Urine Mucus Rare H (None) /hpf 05/27/21 05/27/21 Range/Units 05:05 05:05 Neutrophils # (1.3-7.7) k/uL Lymphocytes # (1.0-4.8) k/uL ESR (0-15) mm/hr PT (9.0-12.0) sec INR (<1.2) D-Dimer (<0.60) mg/L FEU Sodium (137-145) mmol/L Carbon Dioxide 17 L (22-30) mmol/L BUN 43 H (9-20) mg/dL Creatinine 1.70 H (0.66-1.25) mg/dL Glucose 162 H (74-99) mg/dL Plasma Lactic Acid Arvind 3.6 H* (0.7-2.0) mmol/L Calcium 8.1 L (8.4-10.2) mg/dL Ferritin (22.0-322.0) ng/mL Total Bilirubin 3.3 H (0.2-1.3) mg/dL AST 80 H (17-59) U/L Lactate Dehydrogenase (313-618) U/L C-Reactive Protein (<1.0) mg/dL Total Protein 6.1 L (6.3-8.2) g/dL Albumin 2.9 L (3.5-5.0) g/dL Ur Specific [place] (1.001-1.035) Urine Protein (Negative) Urine Glucose (UA) (Negative) Urine Ketones (Negative) Urine Blood (Negative) Urine Bilirubin (Negative) Urine Mucus (None) /hpf Microbiology - Last 24 Hours (Table) 05/25/21 22:33 Blood Culture - Preliminary Blood No Growth after 24 hours 05/25/21 21:27 Blood Culture - Preliminary Blood No Growth after 24 hours Assessment and Plan Plan: History of COVID-19 pneumonia. Patient has history of perforated appendicitis. This probably happened 6 days ago. The patient is high risk for partial colectomy if he undergoes appendectomy at this point. The patient is improving. His pain is improved. He still has a normal white count. He will continue IV antibiotics. I did discuss the patient is that he may need to go to surgery if his clinical condition changes. We'll continue to measure his urine output.
--- NOTE | 2021-05-27 16:40 | P.CNPUL ---
History of Present Illness Consult date: 05/27/21 Reason for consult: dyspnea History of present illness: A 41-year-old male patient who was hospitalized on 05/25/2021 for abdominal pain of 3 days' duration. The patient stated that he was nauseated and he was unable to tolerate any form of oral intake. The patient was also having abdominal pain. He denied having any fever. He reported that he tested positive for COVID 19 approximately 8 days prior to his hospitalization. At that time, the patient did not have any abdominal pain. The patient was seen in the emergency department, the patient was hyponatremic initially with a sodium level of 129, he had a white cell count of 11.5, he had a serum bicarb of 18 with a anion gap of 17. The patient underwent a CAT scan of the abdomen and pelvis that showed inflammatory changes in the right lower quadrant with pneumoperitoneum. Gen. surgery was consulted and the patient was seen by the surgeon and due to the chronicity of the findings, chronic appendicitis was considered and the patient was started on IV antibiotics without any immediate surgical intervention. The plan was ultimately to do a surgical aspiration once the inflammation has settled down with IV antibiotics. Based on that, the patient was admitted to the hospital for further monitoring and the patient is currently on IV Zosyn. I was consulted and the patient due to concerns of COVID 19 related to pneumonia. The patient had a chest x-ray showed patchy bilateral interstitial pulmonary opacities and the venous Dopplers were negative for DVT. Computed tomography scan of the chest was done that showed bilateral groundglass pulmonary infiltrates consistent with COVID 19 related pneumonia and there was evidence of pneumoperitoneum. The patient is morbidly obese. The patient is a BMI of 44.3. The patient is currently on 2 L of oxygen by nasal cannula. He is not having any significant respiratory distress. He was given Dilaudid for pain control. He is on Lovenox for the subcu for DVT prophylaxis. No steroid use at this point in time. The patient on normal saline at the rate of 100 mL an hour. Review of Systems CONSTITUTIONAL: Denies fever or chills. EYES: Negative for vision changes ENT: Negative for hearing loss CARDIOVASCULAR: Denies chest pain, shortness of breath, diaphoresis, orthopnea, PND or palpitations. VASCULAR: Denies edema RESPIRATORY: Denies having any worsening shortness of breath. He has some limited cough. GASTROINTESTINAL: abdominal pain, no diarrhea, constipation, nausea or vomiting. MUSCULOSKELETAL: Denies myalgias. NEUROLOGIC: Denies numbness, tingling, headache or weakness. ENDOCRINE: Denies fatigue, weight change, polydipsia or polyurina. GENITOURINARY: Denies burning, hematuria or urgency with micturation. HEMATOLOGIC: Denies history of anemia or bleeding. DERMATOLOGY: Denies rash or skin sores PSYCH: Negative for depression or hallucinations. Past Medical History Past Medical History: No Reported History History of Any Multi-Drug Resistant Organisms: None Reported Past Surgical History: Hernia Repair Past Anesthesia/Blood Transfusion Reactions: No Reported Reaction Past Psychological History: No Psychological Hx Reported Smoking Status: Former smoker Past Alcohol Use History: Occasional Past Drug Use History: None Reported Medications and Allergies Home Medications Medication Instructions Recorded Confirmed Type Ibuprofen [Motrin] 800 mg PO Q8H PRN 05/25/21 05/25/21 History Allergies Allergy/AdvReac Type Severity Reaction Status Date / Time acetaminophen [From Tylenol] Allergy Chest Pain Verified 05/25/21 21:37 Physical Exam Vitals: Vital Signs Temp Pulse Resp BP Pulse Ox 05/27/21 14:00 97.8 F 106 H 18 107/73 94 L 05/27/21 10:00 97.6 F 104 H 19 116/74 93 L 05/27/21 08:13 130 H 05/27/21 06:19 97.8 F 130 H 108/62 95 05/27/21 04:12 97.7 F 05/27/21 02:00 122 H 105/69 95 05/26/21 22:20 97.7 F 137 H 135/82 93 L 05/26/21 20:30 132 H 20 05/26/21 19:43 97.7 F 27 H 126/85 93 L 05/26/21 19:40 129 H 05/26/21 18:31 97.8 F 93 19 137/85 92 L Intake and Output 05/27/21 05/27/21 05/27/21 06:59 14:59 22:59 Output Total 300 Balance -300 Output: Urine 300 Gen. appearance the patient is calm and comfortable , RA02, BMI is 44.3 Head exam was generally normal. There was no scleral icterus or corneal arcus. Mucous membranes were moist. Neck was supple and without jugular venous distension, thyromegaly, or carotid bruits. Carotids were easily palpable bilaterally. There was no adenopathy. GENERAL: Well-developed in no acute distress. HEENT: Head is normocephalic. RESPIRATORY: Respirations even and unlabored. The patient has no crackles in the rest of the equal and symmetrical bilaterally Cardiac exam revealed the PMI to be normally situated and sized. The rhythm was regular and no extrasystoles were noted during several minutes of auscultation. The first and second heart sounds were normal and physiologic splitting of the second heart sound was noted. There were no murmurs, rubs, clicks, or gallops. Abdominal exam shows no significant guarding. The patient is mild tenderness in the right lower quadrant. No rebound tenderness. No evidence of any peritoneal signs at this point in time. EXTREMITIES: Normal range of motion. Neurologically, the patient is awake and alert and the patient does not have any focal neurological deficit. Cranial nerves are essentially intact. Results - Laboratory Findings CBC and BMP: 05/27/21 05:05 05/27/21 05:05 PT/INR, D-dimer PT 12.5 sec (9.0-12.0) H 05/26/21 15:32 INR 1.2 (<1.2) H 05/26/21 15:32 D-Dimer 4.17 mg/L FEU (<0.60) H 05/26/21 15:32 Abnormal lab findings: Abnormal Labs 05/25/21 05/25/21 05/25/21 20:07 20:07 21:45 WBC 11.5 H Neutrophils # 10.4 H Lymphocytes # 0.4 L ESR PT INR D-Dimer Sodium 129 L Chloride 94 L Carbon Dioxide 18 L BUN 27 H Creatinine 1.35 H Glucose 149 H Plasma Lactic Acid Arvind Calcium Ferritin Total Bilirubin 1.5 H AST Lactate Dehydrogenase C-Reactive Protein Total Protein Albumin Ur Specific [place] Urine Protein Urine Glucose (UA) Urine Ketones Urine Blood Urine Bilirubin Urine Mucus Coronavirus (PCR) Detected A 05/26/21 05/26/21 05/26/21 04:53 04:53 15:32 WBC Neutrophils # 8.0 H Lymphocytes # 0.5 L ESR PT 12.5 H INR 1.2 H D-Dimer 4.17 H Sodium 132 L Chloride Carbon Dioxide 20 L BUN 29 H Creatinine 1.30 H Glucose 136 H Plasma Lactic Acid Arvind Calcium 8.1 L Ferritin Total Bilirubin AST Lactate Dehydrogenase C-Reactive Protein Total Protein Albumin Ur Specific [place] Urine Protein Urine Glucose (UA) Urine Ketones Urine Blood Urine Bilirubin Urine Mucus Coronavirus (PCR) 05/26/21 05/26/21 05/26/21 15:32 15:32 15:32 WBC Neutrophils # Lymphocytes # ESR PT INR D-Dimer Sodium 136 L Chloride Carbon Dioxide 19 L BUN 34 H Creatinine Glucose 136 H Plasma Lactic Acid Arvind 2.1 H* Calcium Ferritin 1393.0 H Total Bilirubin AST Lactate Dehydrogenase 637 H C-Reactive Protein 53.8 H Total Protein Albumin Ur Specific [place] Urine Protein Urine Glucose (UA) Urine Ketones Urine Blood Urine Bilirubin Urine Mucus Coronavirus (PCR) 05/26/21 05/26/21 05/26/21 15:33 19:35 22:27 WBC Neutrophils # Lymphocytes # ESR 83 H PT INR D-Dimer Sodium Chloride Carbon Dioxide BUN Creatinine Glucose Plasma Lactic Acid Arvind 2.7 H* 2.8 H* Calcium Ferritin Total Bilirubin AST Lactate Dehydrogenase C-Reactive Protein Total Protein Albumin Ur Specific [place] Urine Protein Urine Glucose (UA) Urine Ketones Urine Blood Urine Bilirubin Urine Mucus Coronavirus (PCR) 05/26/21 05/27/21 05/27/21 Unknown 05:05 05:05 WBC Neutrophils # 9.5 H Lymphocytes # 0.3 L ESR PT INR D-Dimer Sodium Chloride Carbon Dioxide 17 L BUN 43 H Creatinine 1.70 H Glucose 162 H Plasma Lactic Acid Arvind Calcium 8.1 L Ferritin Total Bilirubin 3.3 H AST 80 H Lactate Dehydrogenase C-Reactive Protein Total Protein 6.1 L Albumin 2.9 L Ur Specific [place] 1.049 H Urine Protein 2+ H Urine Glucose (UA) Trace H Urine Ketones Trace H Urine Blood Large H Urine Bilirubin 1+ H Urine Mucus Rare H Coronavirus (PCR) 05/27/21 05:05 WBC Neutrophils # Lymphocytes # ESR PT INR D-Dimer Sodium Chloride Carbon Dioxide BUN Creatinine Glucose Plasma Lactic Acid Arvind 3.6 H* Calcium Ferritin Total Bilirubin AST Lactate Dehydrogenase C-Reactive Protein Total Protein Albumin Ur Specific [place] Urine Protein Urine Glucose (UA) Urine Ketones Urine Blood Urine Bilirubin Urine Mucus Coronavirus (PCR) - Diagnostic Findings Chest x-ray: image reviewed CT scan - chest: image reviewed Assessment and Plan Plan: 1 subacute/chronic appendicitis with secondary pneumoperitoneum. The patient is current on IV antibiotics with IV Zosyn, suggest surgeries on the case and the patient will be considered for expiratory laparotomy at a later stage. 2 pneumoperitoneum secondary to above 3 COVID 19 related pneumonia/infection currently on RA. The patient is not vaccinated 4 obesity with a BMI of 44.3 5 hyponatremia, improving and the sodium level is normalized 6 acute kidney injury with a creatinine of 1.7 7 mild lactic acidosis with lactic acid level being as high as 3.6, dropped down to 1.6 Plan The patient is currently on 2 L about 2 by nasal cannula. Note that the repeat COVID 19 testing that was done on 05/27/2021 and back negative. I'm assuming that the patient is recovering from his COVID 19 infection. No clear indication for pneumonia and the patient has some vague infiltration of the lungs bilaterally with some atelectatic changes in lung bases. No evidence of any pulmonary embolism. No active pulmonary issues and anticipate no respiratory decompensation from COVID 19. His repeat testing came back negative. He was originally diagnosed approximately 10 days ago. In view of his pneumoperitoneum, continued IV antibiotics. Avoid steroids. Watch for any peritoneal signs on a daily basis. Consider expiratory laparotomy if there is any decompensation. Otherwise, this can be managed conservatively with IV antibiotics and fluids and surgery can be done at a later stage once the patient is more stable. Sodium level is improved. The patient developed improvement or lactic acidosis. Acute kidney injury is present. We'll monitor the creatinine. Continue IV fluids and the patient is currently receiving IV fluids in the form of normal saline at the rate of 100 mL an hour. The patient is nonoliguric. Dilaudid for pain control. We'll continue to follow.
--- NOTE | 2021-05-27 17:39 | PN ---
PROGRESS NOTE DATE OF SERVICE: 05/27/2021 This 41-year-old gentleman who was admitted with possible acute appendiceal perforation also had acute COVID-19 infection, but most recent COVID-19 today is negative. V/Q scan is low probability. Cardiology has also seen the patient for tachycardia. No chest pain. No palpitations. Past medical history reviewed. REVIEW OF SYSTEMS: CARDIOVASCULAR SYSTEM: No angina, palpitations. RESPIRATION: As mentioned earlier. GI: As mentioned earlier. : No dysuria. NERVOUS SYSTEM: No numbness, weakness. CURRENT MEDICATIONS: Reviewed. They include Lovenox, Dilaudid, Motrin, Lopressor, Narcan, Zofran, Protonix. Doses are reviewed. PHYSICAL EXAMINATION: Patient is alert, oriented x3. Pulse 106, blood pressure 107/73, respiration 18, temperature 97.8, pulse ox 94% on 2 L. HEENT: Conjunctivae normal. NECK: No jugular venous distention. CARDIOVASCULAR: S1, S2 muffled. RESPIRATION: Breath sounds diminished at the bases. A few scattered rhonchi. ABDOMEN: Soft, distended. Mild diffuse tenderness. No guarding. No rigidity. No mass palpable. Bowel sounds diminished. No ascites. LEGS: No edema. No swelling. NERVOUS SYSTEM: No focal deficit. LABS: D-dimer is 4.17. Sodium 138. Other labs are noted. White count is 10.6 today. ASSESSMENT: 1. Acute appendiceal perforation, possibly with acute abdomen with possible sepsis, present on admission. 2. Acute COVID-19 infection with possible acute bibasilar pneumonia. 3. Hyponatremia. 4. Elevated D-dimer without any evidence of pulmonary embolism. 5. Increased creatinine with acute renal failure, acute tubular necrosis. 6. Lymphopenia. 7. Increased white count. 8. History of hernia repair. 9. History of nicotine dependence. 10.Obesity with body mass index of 44.6. 11.FULL CODE. RECOMMENDATIONS AND DISCUSSION: I recommend to continue current medications, continue with the monitoring, symptomatic treatment. I recommend COVID-19 PCR to confirm the negativity before precautions have been discontinued, just as a precaution. Otherwise, continue the antibiotics. Closely follow with Surgery. The white count has normalized. Sodium has improved. Prognosis is guarded. Further recommendations to follow. See orders for further details. MMODL / IJN: [id number] /
[2021-05-27] MEDS ORDERED: DILTIAZEM ORAL 30 MG TAB PO STA (22:39)
[2021-05-27] MEDS ORDERED: HEPARIN SODIUM 1,000 UN/ML (10ML VL) IV PRN (23:20)
[2021-05-27] MEDS ORDERED: HEPARIN SODIUM 1,000 UN/ML (10ML VL) IV ONE (23:20)
[2021-05-27] MEDS ORDERED: DILTIAZEM 5 MG/ML 5 ML VIAL IVP STA (23:21)
--- NOTE | 2021-05-27 23:27 | XR ---
EXAMINATION TYPE: XR chest 1V portable DATE OF EXAM: 05/27/2021 COMPARISON: 05/26/2021 HISTORY: Hypoxemia TECHNIQUE: 2 views FINDINGS: There is elevated right diaphragm. There is some atelectasis right lung base. There is mild subsegmental atelectasis left mid and lower lung field. No heart failure seen. IMPRESSION: Atelectasis right lung base slightly worse than yesterday. No heart failure.
[2021-05-27] MEDS ORDERED: HEPARIN SOD,PORK IN 0.45% NACL 25,000 UNIT in 0.45% NACL 1 250ML.BAG IV SCH (23:30)
[2021-05-27 23:43] LABS: Basophils % (A) 0 %; Eosinophils % (A) 0 %; HCT 39.2 % (39.0-53.0); HGB 12.1 gm/dL (13.0-17.5); Hypochromasia Moderate; Lymphocytes # (A) 0.3 k/uL (1.0-4.8); Lymphocytes % (A) 3 %; MCH 28.1 pg (25.0-35.0); MCHC 30.9 g/dL (31.0-37.0); MCV 90.9 fL (80.0-100.0); Mean Platelet Volume 7.6; Monocytes # (A) 0.3 k/uL (0-1.0); Monocytes % (A) 3 %; Neutrophils # (A) 7.2 k/uL (1.3-7.7); Neutrophils % (A) 91 %; Platelet Count 362 k/uL (150-450); RBC 4.31 m/uL (4.30-5.90); RDW 15.2 % (11.5-15.5)
[2021-05-27] MEDS: DILTIAZEM 125 MG in SODIUM CHLORIDE 0.9% 100 ML IV SCH (23:44)
[2021-05-28 00:15] LABS: INR 1.2 (<1.2); Partial Thromboplastin Time 28.2 sec (22.0-30.0); Prothrombin Time 12.3 sec (9.0-12.0)
[2021-05-28] MEDS ORDERED: LORazepam 2 MG/ML INJ IV STA (00:35)
[2021-05-28] MEDS ORDERED: SODIUM CHLORIDE 0.9% 1,000 ML IV ONE ×2 (00:40→05:55)
--- NOTE | 2021-05-28 00:46 | P.EN ---
A team note patient developed Afib with RVR , he is admitted for subacute appendicitis and pneumoperitoneum , surgery following with no immediate plans for surgery , patient recently had COVID however, now he is asymptomatic and testing negative lungs good breath sounds bilaterally heart tachycarida with irregular irregularity BP systolic 121 patient will be started on cardizem drip with bolus, and heparin drip NS 0.9% 1L bolus supportive care cardiology consult CXR reviewed labs ordered, CBC is back , overall stable with slight drop in Hgb patient moved to 3S
[2021-05-28] MEDS: HYDROmorphone 1 MG/ML 1 ML SYRINGE IVP PRN ×2 (00:47→10:27)
[2021-05-28] MEDS ORDERED: DILTIAZEM 5 MG/ML 5 ML VIAL IVP STA (01:03)
[2021-05-28] MEDS ORDERED: METOPROLOL TARTRATE 25 MG TAB PO STA (01:04)
[2021-05-28] MEDS: PIPERACILLIN-TAZOBACTAM 3.375 GM in SODIUM CHLORIDE 0.9% 100 ML IVPB SCH ×4 (01:40→23:29)
[2021-05-28] MEDS: SODIUM CHLORIDE 0.9% 1,000 ML IV SCH ×6 (02:33→23:20)
[2021-05-28] MEDS: HYDROmorphone 0.5 MG/0.5 ML SYRINGE IVP PRN ×2 (02:54→16:35)
--- NOTE | 2021-05-28 03:39 | CT ---
EXAMINATION TYPE: CT abdomen pelvis wo con DATE OF EXAM: 05/28/2021 COMPARISON: 05/25/2021 HISTORY: pneumoperitoneum progress, rule out bleeding. prior on PACS. CT DLP: 1889.2 mGycm Automated exposure control for dose reduction was used. Images obtained from the diaphragm to the floor the pelvis with no contrast. There is extensive airspace consolidation right lower lobe. There is small right pleural effusion. Th ere is some mild infiltrate left lower lobe. There is elevated right diaphragm. Heart size is normal. Liver spleen pancreas appear intact. The bile ducts are not dilated. Gallbladder appears slightly con tracted. There is dilated fluid-filled stomach. There are multiple dilated small bowel loops in the mid and up per abdomen. Large bowel is not dilated. There is a mild pneumoperitoneum. Bladder distends smoothly. There is no inguinal hernia. There is no significant free fluid in the abdomen. Small bowel is dilat ed up to 4.5 cm. The lumbar vertebrae have fairly normal alignment. There is no compression fracture. The bony pelvis is intact. IMPRESSION: There is pneumoperitoneum increased slightly compared to last exam. There is multiple dilated small b owel loops suggestive of mechanical bowel obstruction or severe ileus which are increased compared to last exam. There is some fat stranding and mesenteric edema in the right mid abdomen. This could be source of the free air near the terminal ileum or appendix or cecum. Appendix not clearly seen. There is significant increased airspace consolidation and atelectasis in both lower lobes compared to last exam. Inflammatory changes in the right mid abdomen unchanged.
[2021-05-28] MEDS ORDERED: IV FLUID CONTINUATION 1,000 ML IV ONE (05:07)
[2021-05-28] MEDS ORDERED: LIDOCAINE 1% INJ 10MG/ML (20 ML MDV) ONE (05:28)
[2021-05-28] MEDS ORDERED: ROCURONIUM 10 MG/ML (5 ML VIAL) IV ONE (05:28)
[2021-05-28] MEDS ORDERED: fentaNYL (PF) 50 MCG/ML 2 ML AMP ONE (05:28)
[2021-05-28] MEDS ORDERED: PHENYLEPHRINE-0.9% NACL SYG 1,000 MCG/10 ML SYRINGE ONE (05:28)
[2021-05-28] MEDS ORDERED: PROPOFOL 10 MG/ML 20 ML VIAL IV ONE (05:28)
[2021-05-28] MEDS ORDERED: SUCCINYLCHOLINE CHLORIDE 100 MG/5 ML SYR IV ONE (05:28)
[2021-05-28] MEDS ORDERED: BUPIVACAINE (PF) 0.5% 30 ML VIAL SQ ONE (05:34)
--- NOTE | 2021-05-28 06:44 | P.ANPRN ---
Procedure Note - Anesthesia - Invasive Line Left Arterial Line Time Out Performed: Yes Date of Procedure: 05/28/21 Time of Procedure: 06:00 Location of Patient: OR Preparation: Sterile Prep, Sterile Dressing Arterial Line Location: Radial Ultrasound Used: Yes Purpose - Visualization and Identification of Vasculature: Yes Needle Guage: 20 Image Stored and Saved: Yes (Unable to print the image ) Narrative: Left radial line placement per sterile protocol utilized.
[2021-05-28 07:15] LABS: Allen Test Performed? Yes
[2021-05-28 07:18] LABS: ABG Base Excess -8.9 mmol/L; ABG HCO3 17 mmol/L (21-25); ABG Oxygen Saturation 96.1 % (94-97); ABG PCO2 38 mmHg (35-45); ABG PH 7.27 (7.35-7.45); ABG PO2 121 mmHg (83-108)
--- NOTE | 2021-05-28 07:54 | P.PN ---
Progress Note - Text Progress Note Date: 05/28/21 I was called at approximately 3 AM by the patient's nurse. Patient had gone into atrial fibrillation with rapid ventricular response. He was transferred to the third floor. Patient HAD increasing hypoxia. Due to the patient's change in clinical condition I discussed with the nurse that he will be undergoing exploratory laparotomy emergently. Patient's is at the bedside and this was discussed with her.
--- NOTE | 2021-05-28 07:59 | P.OP ---
Date of Procedure: 05/28/21 Preoperative Diagnosis: Exploratory laparotomy Postoperative Diagnosis: Crohn's disease with abscess Procedure(s) Performed: Ileocolectomy Washout of peritoneal abscess Anesthesia: JASON Surgeon: Marco A Marsh Estimated Blood Loss (ml): 200 Pathology: other (Terminal ileum and right colon) Condition: critical Disposition: ICU Operative Findings: Significant inflammatory bowel disease of terminal ileum and right colon. Abscess in right lower quadrant. Description of Procedure: The patient's placed on the operative table in the supine position. He received general endotracheal anesthesia. The patient was satting 70% on room air prior to being intubated. He was breathing a nonrebreather to maintain his oxygenation. His abdomen was prepped and draped usual sterile fashion. The eye was entered through a midline incision. The Bookwalter was placed the wound. The bowel was adherent to the anterior abdominal wall in the right lower quadrant. This was dissected with blunt finger dissection an abscess cavity is entered. The abscess cavity was cultured. There appeared to be an inflammatory mass of the terminal ileum and right colon. This appeared to have the appearance of Crohn's disease with creeping fat onto the antimesenteric border of the small bowel. At this point decided to perform a ileocolectomy. The ileum was transected with the YAYA stapler at a nondiseased portion of bowel. The bowel mesentery was quite thickened. The bowel mesentery was then divided with the Enseal device. There was oozing from the mesentery due to the edema. Several vessels were ligated with 0 silk ties after being ligated with a right angle retractor. The right colon was mobilized. And then the proximal transverse colon was transected with the YAYA stapler. The mesentery the right colon was divided using the Enseal device. Several larger vessels were ligated with 0 silk ties. The specimen sent to pathology. The abdomen was irrigated. No bleeding was seen. A [id number] functional end-to-end staple anastomosis was then created using the YAYA and TA stapler. 3-0 GI silk sutures as crotch stitch. A ADRIAN drains placed in the right lower quadrant and brought out through separate stab incision this was secured with 2-0 nylon. The fascia was closed with looped #1 PDS suture. Skin was closed gerald. Several joy were placed in the incision to keep the wound open so it could drain. Sterile dressing applied. The gallbladder was applied. Patient was sent to the ICU intubated.
[2021-05-28 08:07] LABS: Glucose,Whole Blood 118 mg/dL (75-99)
[2021-05-28] MEDS ORDERED: propofoL 100 ML IV ONE (08:20)
[2021-05-28 08:50] LABS: ABG Base Excess -7.8 mmol/L; ABG HCO3 20 mmol/L (21-25); ABG Oxygen Saturation 91.6 % (94-97); ABG PCO2 48 mmHg (35-45); ABG PH 7.22 (7.35-7.45); ABG PO2 79 mmHg (83-108); ABG TCO2 21 mmol/L (19-24)
[2021-05-28 08:52] LABS: Allen Test Performed? no
[2021-05-28 09:01] LABS: Basophils % (A) 0 %; Eosinophils % (A) 0 %; HCT 37.8 % (39.0-53.0); HGB 11.4 gm/dL (13.0-17.5); Hypochromasia Marked; Lymphocytes # (A) 0.6 k/uL (1.0-4.8); Lymphocytes % (A) 4 %; MCHC 30.2 g/dL (31.0-37.0); MCV 92.9 fL (80.0-100.0); Mean Platelet Volume 7.8; Monocytes # (A) 0.3 k/uL (0-1.0); Monocytes % (A) 2 %; Neutrophils # (A) 14.3 k/uL (1.3-7.7); Neutrophils % (A) 92 %; Platelet Count 707 k/uL (150-450); RBC 4.07 m/uL (4.30-5.90); RDW 15.4 % (11.5-15.5); WBC 15.6 k/uL (3.8-10.6)
--- NOTE | 2021-05-28 09:09 | P.PN ---
Subjective Progress Note Date: 05/28/21 05/28/2020, the patient is being seen for a follow-up. Events from yesterday was noted and the patient was taken to the operating room earlier this morning. Note that the patient developed atrial fibrillation with rapid ventricular response and this was refractory to Cardizem drip and boluses. He was started also on IV heparin by the medical doctor and he was On a Cardizem drip at 15 mg an hour. At the same time, his condition was decompensating. He was given a liter of normal saline bolus. A repeat computed tomography scan of the abdomen and pelvis was done and showed no peritoneal increased slightly compared to the last examination. There was also evidence of multiple dilated small bowel loops suggestive of mechanical obstruction/ileus which is increased temperature last examination. There was also some fat stranding and mesenteric edema in the right mid abdomen. The source was thought to be the terminal ileum. Appendix was not clearly seen. There was also increased airspace con solidation/atelectasis in lung bases bilaterally. At that point, the patient was seen by general surgery and the patient was taken to the operating room. Intraoperatively, the patient was found to significant inflammatory bowel disease of the terminal ileum and right colon. There was also abscess in the right lower quadrant. Based on that, the patient was given an ileocolectomy and right-sided colectomy. The patient had end-to-end anastomosis. A ADRIAN drain was placed. The patient was kept intubated and the patient was brought into the intensive care unit following that I saw the patient immediately after he got to the ICU. He continues to have refractory atrial fibrillation. His heart rate remained tachycardic is and is around 190 despite being on Cardizem drip at 15 mg an hour. He remains on IV fluids and he is currently receiving normal saline at the rate of 150 mL an hour. He is on propofol running at 20 mcg/kg per minute. Is on a mechanical ventilator. The patient is on assist control rate of 16, tidal volume of 500, FiO2 of 100% with a PEEP of 5. The blood gases post arrival to the ICU showed a pH of 7.22 with a pCO2 of 48 and pO2 of 79. Peak airway pressures 24. Chest x- ray shows adequate positioning of the ET tube. No evidence of any airspace disease or consolidation this point in time. Urine output is being monitored and is quite dark. ADRIAN drains in place and output has been in the order of 100 or 200 mL of bloody drainage since arrival from the operating room. The patient also has a orogastric tube which is connected to low intermittent suction. Output is minimal at this point in time. He remains on IV Zosyn. Objective - Vital Signs Vital signs: Vital Signs Temp 96.8 F L 05/28/21 05:00 Pulse 150 H 05/28/21 05:00 Resp 24 05/28/21 05:00 BP 133/91 05/28/21 05:00 Pulse Ox 91 L 05/28/21 05:00 Intake & Output 05/27/21 05/28/21 05/28/21 18:59 06:59 18:59 Intake Total 237.667 Output Total 400 Balance -162.333 Intake: IV 200 Intake, IV Titration 37.667 Amount Diltiazem 125 mg In 6.5 Sodium Chloride 0.9% 100 ml @ 5 MG/HR 5 mls/hr IV .Q24H [facility] Rx#:[id number] Heparin Sod,Pork in 0.45% 31.167 NaCl 25,000 unit In 0.45 % NaCl 1 250ml.bag @ 7. 3487 UNITS/KG/HR 10 mls/ hr IV .Q24H [facility] Rx#: [id number] Output: Urine 400 Other: Voiding Method Urinal - Exam Gen. appearance the patient is calm and comfortable , the patient is currently intubated on a mechanical ventilator. The patient has an orogastric and orotracheal tube and both of them are in place and the patient is sedated with propofol running at 20 mg/kg/m. Head exam was generally normal. There was no scleral icterus or corneal arcus. Mucous membranes were moist. Neck was supple and without jugular venous distension, thyromegaly, or carotid bruits. Carotids were easily palpable bilaterally. There was no adenopathy. GENERAL: Well-developed in no acute distress. HEENT: Head is normocephalic. RESPIRATORY: Respirations even and unlabored. The patient has no crackles in the rest of the equal and symmetrical bilaterally Cardiac exam revealed the PMI to be normally situated and sized. The rhythm was regular and no extrasystoles were noted during several minutes of auscultation. The first and second heart sounds were normal and physiologic splitting of the second heart sound was noted. There were no murmurs, rubs, clicks, or gallops. Abdominal exam shows no significant guarding. The patient has sluggish bowel sounds. The patient has a ADRIAN drain in the right lower quadrant. Output has been around 200 mL of bloody serosanguineous material since the patient arrived from the operating room. No direct tenderness. No rebound tenderness. No significant guarding at this point in time. EXTREMITIES: Normal range of motion. Neurologically, the patient is sedated and the patient is currently on propofol. - Labs CBC & Chem 7: 05/27/21 23:25 05/27/21 05:05 Labs: Abnormal Lab Results - Last 24 Hours (Table) 05/27/21 05/27/21 05/27/21 Range/Units 23:25 23:25 23:25 Hgb 12.1 L (13.0-17.5) gm/dL MCHC 30.9 L (31.0-37.0) g/dL Lymphocytes # 0.3 L (1.0-4.8) k/uL PT 12.3 H (9.0-12.0) sec INR 1.2 H (<1.2) D-Dimer 9.28 H (<0.60) mg/L FEU ABG pH (7.35-7.45) ABG pCO2 (35-45) mmHg ABG pO2 (83-108) mmHg ABG HCO3 (21-25) mmol/L ABG O2 Saturation (94-97) % POC Glucose (mg/dL) (75-99) mg/dL 05/28/21 05/28/21 05/28/21 Range/Units 06:55 08:06 08:48 Hgb (13.0-17.5) gm/dL MCHC (31.0-37.0) g/dL Lymphocytes # (1.0-4.8) k/uL PT (9.0-12.0) sec INR (<1.2) D-Dimer (<0.60) mg/L FEU ABG pH 7.27 L 7.22 L (7.35-7.45) ABG pCO2 48 H (35-45) mmHg ABG pO2 121 H 79 L (83-108) mmHg ABG HCO3 17 L 20 L (21-25) mmol/L ABG O2 Saturation 91.6 L (94-97) % POC Glucose (mg/dL) 118 H (75-99) mg/dL Microbiology - Last 24 Hours (Table) 05/25/21 22:33 Blood Culture - Preliminary Blood No Growth after 48 hours 05/25/21 21:27 Blood Culture - Preliminary Blood No Growth after 48 hours Assessment and Plan Plan: 1 acute abdomen related to inflammatory bowel disease involving the terminal ileum along with abscess formation and perforation with pneumoperitoneum which clinically got worse and the patient also developed some ileus based on the most recent CAT scan of the abdomen. The patient underwent surgical resection of the terminal ileum of the colon and he underwent ileocolectomy and colectomy of the right colon. Patient is currently postop day #0. Postop, the patient was kept intubated on a mechanical ventilator and the patient got transferred to the intensive care unit for further care. 2 new onset atrial fibrillation with rapid ventricular response, refractory to Cardizem drip 3 COVID 19 related pneumonia/infection currently on RA. The patient is not vaccinated, note that the repeat COVID 19 testing has become negative and the chest x-ray showing some atelectatic changes in lung bases bilaterally. No evidence of pneumonia. Chest x-ray was noted. Blood gases was noted. 4 acute metabolic acidosis, likely lactic acidosis, awaiting lactic acid level. 5 hyponatremia, improving and the sodium level is normalized 6 acute kidney injury with a creatinine of 1.7, awaiting follow-up creatinine 7 obesity with a BMI of 44.3 Plan The patient will be kept on mechanical ventilator for now. We'll increase his respiratory rate up to 24 and keep the tidal volume of 500. Keep the FiO2 at 100% and bring the PEEP up to 8. Repeat blood gases within the next 1 hour. Keep the patient sedated with propofol Establish a triple lumen catheter and give the patient total of 2 L of normal saline Stop the Cardizem drip and switch this patient to amiodarone. The patient will be given a bolus and following that he will be started on amiodarone per protocol, cardiology is involved. Surgeon opted not to use any form of anticoagulants. We should be able to start the patient on Lovenox 40 subcu as of tomorrow. Continued IV Zosyn for now. Monitor electrolytes. Monitor renal function. Repeat set of electrodes are still pending. Monitor lactic acid level. Keep the patient on propofol for now for sedation and titrate to maintain adequate sedation Keep the patient nothing by mouth for now. OG output is minimal and it's intermittent low suctioning at this point in time. Monitor the output from the ADRIAN drain Dilaudid for pain control IV Protonix Condition is critical and will continue to follow make further recommendations based on his progress. Case was discussed with general surgery. This evaluation was on a more than 30 minutes. Time with Patient: Greater than 30
[2021-05-28] MEDS: METOPROLOL TARTRATE 25 MG TAB PO SCH ×2 (09:14→19:56)
[2021-05-28] MEDS: PANTOPRAZOLE 40 MG/10 ML VIAL IVP SCH ×2 (09:14→19:57)
[2021-05-28] MEDS ORDERED: SODIUM CHLORIDE 0.9% 2,000 ML IV ONE ×2 (09:15→16:00)
--- NOTE | 2021-05-28 09:19 | P.PN ---
Subjective HISTORY OF PRESENTING ILLNESS patient is a 41-year-old male admitted with pneumoperitoneum. He has no known cardiac medical history. 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 We were consulted for an abnormal EKG. EKG shows sinus tachycardia with poor R wave progression and nonspecific ST-T wave changes and is negative for ischemic changes. Patient is Covid positive, he is found to have chronic appendicitis with possible perforation and possible sepsis. Patient's sinus tachycardia is believed to be related to his appendicitis and possible sepsis. patient was given a one-time dose of Lopressor 25 mg last night. Will start patient on Lop ressor 25 mg twice a day. an echocardiogram was performed and reviewed, patient has a normal LV function and no abnormal wall motion or valvular disease. Patient will be placed on telemetry and troponins will be drawn 1 to rule out ischemia. Diagnostics: blood pressure 116/74, heart rate 130, 93% on 3 L nasal cannula, afebrile Labs-hemoglobin 13.5, potassium 4, BUN 43, creatinine 1.7, plasma lactic acid 3.6, AST 3.3, ALt 80 Chest x-ray shows patchy and interstitial opacities mild Cardiology Venous Doppler was negative bilaterally for DVTs Chest CT showed ground glass findings correlating bilateral Covid pneumonia, mild pneumoperitoneum. 05/28 Patient seen and examined. Patient went into atrial fibrillation with RVR with heart rates in the 180s the 190s and apparently had worsened abdominal pain. It. He had a acute abdomen and therefore was taken for exploratory laparotomy with partial colectomy with findings concerning for underlying Crohn's disease and abscess. Patient was placed on a Cardizem drip with blood pressures predominantly controlled in the 120s over 50s however heart rates still on the 160s up to 180s. No anticoagulation has been placed secondary to recent surge ry. He remains sedated and intubated on ventilator. PHYSICAL EXAMINATION Vital signs reviewed. CONSTITUTIONAL: No apparent distress, intubated and sedated, ill appearing HEENT: Head is normocephalic. Pupils are equal, round. Sclerae anicteric. Mucous membranes of the mouth are moist. No JVD. No carotid bruit. CHEST EXAMINATION: Lungs are clear to auscultation. No chest wall tenderness is noted on palpation or with deep breathing. HEART EXAMINATION: Regular rate and rhythm. S1, S2 heard. No murmurs, gallops or rub. ABDOMEN: Soft, nontender. Positive bowel sounds. EXTREMITIES: 2+ peripheral pulses, no lower extremity edema and no calf tenderness. NEUROLOGIC EXAMINATION: Patient is sedated and intubated ASSESSMENT Sinus tachycardia Pneumoperitoneum Covid pneumonia Paroxysmal atrial fibrillation with RVR, new onset Plan: Patient with new onset atrial fibrillation with RVR and we will start amiodarone and continue with Cardizem drip. Additionally continue with oral Lopressor his blood pressure tolerates however appears to be tolerating hemodynamically currently. Spoke with surgery and no anticoagulation at this time until he heals from his surgical sites. Therefore no cardioversion and less and medically compromised. Await 2-D echo. Objective - Vital Signs Vital signs: Vital Signs Temp 96.8 F L 05/28/21 05:00 Pulse 150 H 05/28/21 05:00 Resp 24 05/28/21 05:00 BP 133/91 05/28/21 05:00 Pulse Ox 91 L 05/28/21 05:00 Intake & Output 05/27/21 05/28/21 05/28/21 18:59 06:59 18:59 Intake Total 237.667 Output Total 400 Balance -162.333 Intake: IV 200 Intake, IV Titration 37.667 Amount Diltiazem 125 mg In 6.5 Sodium Chloride 0.9% 100 ml @ 5 MG/HR 5 mls/hr IV .Q24H [facility] Rx#:[id number] Heparin Sod,Pork in 0.45% 31.167 NaCl 25,000 unit In 0.45 % NaCl 1 250ml.bag @ 7. 3487 UNITS/KG/HR 10 mls/ hr IV .Q24H [facility] Rx#: [id number] Output: Urine 400 Other: Voiding Method Urinal - Labs CBC & Chem 7: 05/28/21 08:58 05/27/21 05:05 Labs: Abnormal Lab Results - Last 24 Hours (Table) 05/27/21 05/27/21 05/27/21 Range/Units 23:25 23:25 23:25 WBC (3.8-10.6) k/uL RBC (4.30-5.90) m/uL Hgb 12.1 L (13.0-17.5) gm/dL Hct (39.0-53.0) % MCHC 30.9 L (31.0-37.0) g/dL Plt Count (150-450) k/uL Neutrophils # (1.3-7.7) k/uL Lymphocytes # 0.3 L (1.0-4.8) k/uL PT 12.3 H (9.0-12.0) sec INR 1.2 H (<1.2) D-Dimer 9.28 H (<0.60) mg/L FEU ABG pH (7.35-7.45) ABG pCO2 (35-45) mmHg ABG pO2 (83-108) mmHg ABG HCO3 (21-25) mmol/L ABG O2 Saturation (94-97) % POC Glucose (mg/dL) (75-99) mg/dL 05/28/21 05/28/21 05/28/21 Range/Units 06:55 08:06 08:48 WBC (3.8-10.6) k/uL RBC (4.30-5.90) m/uL Hgb (13.0-17.5) gm/dL Hct (39.0-53.0) % MCHC (31.0-37.0) g/dL Plt Count (150-450) k/uL Neutrophils # (1.3-7.7) k/uL Lymphocytes # (1.0-4.8) k/uL PT (9.0-12.0) sec INR (<1.2) D-Dimer (<0.60) mg/L FEU ABG pH 7.27 L 7.22 L (7.35-7.45) ABG pCO2 48 H (35-45) mmHg ABG pO2 121 H 79 L (83-108) mmHg ABG HCO3 17 L 20 L (21-25) mmol/L ABG O2 Saturation 91.6 L (94-97) % POC Glucose (mg/dL) 118 H (75-99) mg/dL 05/28/21 Range/Units 08:58 WBC 15.6 H (3.8-10.6) k/uL RBC 4.07 L (4.30-5.90) m/uL Hgb 11.4 L (13.0-17.5) gm/dL Hct 37.8 L (39.0-53.0) % MCHC 30.2 L (31.0-37.0) g/dL Plt Count 707 H (150-450) k/uL Neutrophils # 14.3 H (1.3-7.7) k/uL Lymphocytes # 0.6 L (1.0-4.8) k/uL PT (9.0-12.0) sec INR (<1.2) D-Dimer (<0.60) mg/L FEU ABG pH (7.35-7.45) ABG pCO2 (35-45) mmHg ABG pO2 (83-108) mmHg ABG HCO3 (21-25) mmol/L ABG O2 Saturation (94-97) % POC Glucose (mg/dL) (75-99) mg/dL Microbiology - Last 24 Hours (Table) 05/25/21 22:33 Blood Culture - Preliminary Blood No Growth after 48 hours 05/25/21 21:27 Blood Culture - Preliminary Blood No Growth after 48 hours
[2021-05-28] MEDS ORDERED: DEXTROSE 5% IN WATER 100 ML with AMIODARONE 150 MG IV ONE (09:20)
--- NOTE | 2021-05-28 09:20 | XR ---
EXAMINATION TYPE: XR chest 1V portable DATE OF EXAM: 05/28/2021 8:54 AM COMPARISON:Chest radiograph from one day prior. CT abdomen pelvis 05/28/2021 CLINICAL INDICATION:Male, 41 years old with history of Tube placement; [facility], TECHNIQUE: Frontal view of the chest. FINDINGS: Lungs/Pleura: Similar multifocal airspace opacities are better appreciated partially on prior CT allo wing the right upper lobe consolidation and scattered ground glass opacities. No evidence of pneumoth orax or pleural effusion. Pulmonary vascularity: Unremarkable. Heart/mediastinum: Cardiomediastinal silhouette is unremarkable. Musculoskeletal: No acute osseous pathology. Lines/Tubes: Interval placement of endotracheal tube with distal tip 5.1 cm from the jossie. Interval placement of nasogastric and side-port projecting under the diaphragm. IMPRESSION: 1. Interval placement of support tubes are in appropriate position. 2. Basilar consolidation and scattered airspace opacities related for atypical pneumonia. Aspiration is not entirely ruled out given prior imaging
[2021-05-28 09:29] LABS: Potassium 4.4 mmol/L (3.5-5.1)
[2021-05-28] MEDS ORDERED: AMIODARONE 360 MG in DEXTROSE 5% IN WATER 200 ML IV ONE ×2 (09:30)
--- NOTE | 2021-05-28 09:38 | P.PCN ---
Date of Procedure: 05/28/21 Preoperative Diagnosis: acute abdomen Postoperative Diagnosis: acute abdomen Operative Findings: Procedure(s) Performed: central line Anesthesia: local Surgeon: Megan Metz Estimated Blood Loss (ml): 0 Pathology: none sent Condition: critical Disposition: ICU Operative Findings: Indication: Hemodynamic monitoring/Intravenous access. A time-out was completed verifying correct patient, procedure, site, positioning, and implant(s) or special equipment if applicable. The patient was placed in a dependent position appropriate for central line placement based on the vein to be cannulated. The patients left neck was prepped and draped in sterile fashion. 1% Lidocaine was used to anesthetize the surrounding skin area. A triple lumen 9F Cordis catheter was introduced into the left IJ vein using Seldinger technique. The catheter was threaded smoothly over the guide wire and appropriate blood return was obtained. Each lumen of the catheter was evacuated of air and flushed with sterile saline. The catheter was then sutured in place to the skin and a sterile dressing applied. Perfusion to the extremity distal to the point of catheter insertion was checked and found to be adequate. The patient tolerated the procedure well and there were no complications.
[2021-05-28] MEDS ORDERED: AMIODARONE IN DEXTROSE,ISO-OSM 360 MG/200 ML PLAST..BAG IV ONE (09:40)
[2021-05-28] MEDS ORDERED: AMIODARONE IN DEXTROSE,ISO-OSM 150 MG/100 ML PLAST..BAG IV ONE (09:40)
--- NOTE | 2021-05-28 09:55 | XR ---
EXAMINATION TYPE: XR chest 1V DATE OF EXAM: 05/28/2021 9:40 AM COMPARISON: Same day radiograph CLINICAL INDICATION:Male, 41 years old with history of line placement; TECHNIQUE: Frontal view of the chest. FINDINGS: Lungs/Pleura: There is no evidence of pleural effusion, focal consolidation, or pneumothorax. Pulmonary vascularity: Unremarkable. Heart/mediastinum: Cardiomediastinal silhouette is unremarkable. Musculoskeletal: No acute osseous pathology. Lines/Tubes: Endotracheal tube with distal tip 5 cm above the jossie Nasogastric tube with its distal tip and side-port projecting under the diaphragm. Left internal jugular central venous catheter with distal tip at the confluence of the superior vena cava and the brachiocephalic vein. IMPRESSION: 1. Interval placement of left internal jugular central venous catheter without evidence of pneumothor ax. 2. Basilar consolidation and scattered airspace opacities related for atypical pneumonia. Aspiration is not entirely ruled out given prior imaging.
[2021-05-28] MEDS: CHLORHEXIDINE GLUCONATE 15 ML CUP MUCOUS MEM SCH ×2 (10:57→19:56)
[2021-05-28 12:00] LABS: Glucose,Whole Blood 148 mg/dL (75-99)
[2021-05-28 12:10] LABS: ABG HCO3 19 mmol/L (21-25); ABG Oxygen Saturation 97.4 % (94-97); ABG PCO2 39 mmHg (35-45); ABG PH 7.29 (7.35-7.45); ABG PO2 109 mmHg (83-108); ABG TCO2 20 mmol/L (19-24)
[2021-05-28 12:12] LABS: Allen Test Performed? no
[2021-05-28] MEDS: AMIODARONE 450 MG in DEXTROSE 5% IN WATER 250 ML IV SCH ×2 (15:37)
--- NOTE | 2021-05-28 17:01 | PN ---
PROGRESS NOTE DATE OF SERVICE: 05/28/2021 This 41-year-old gentleman, admitted with acute abdomen, also had acute COVID-19 infection. Last night the patient developed acute respiratory failure and other difficulties and subsequently patient was taken to the OR and underwent exploratory laparotomy by Dr. Marsh. That showed significant Crohn's disease and abscess, and ileocolectomy and washout of the peritoneal abscess were done. The patient is mechanically ventilated at this time. The patient is being closely monitored. Most recent chest x-ray showed bilateral infiltrates and some prominent vascular markings. COVID-19 is still positive at this time. Past medical history reviewed. Review of systems could not be taken; the patient is mechanically ventilated and sedated. The patient is on amiodarone drip, heparin, Dilaudid, Motrin, Lopressor, Zofran and Protonix. Other medications reviewed. CURRENT MEDICATIONS: Reviewed. They include amiodarone and diltiazem. PHYSICAL EXAMINATION: Patient is mechanically ventilated and sedated. Pulse 100, blood pressure 82/61, respiration 24, temperature normal, pulse ox 98% on room air. HEENT: Conjunctivae normal. NECK: No jugular venous distention. CARDIOVASCULAR: S1, S2 muffled. RESPIRATION: Breath sounds diminished at the bases. A few scattered rhonchi. ABDOMEN: Soft. Status post surgery. LEGS: No edema. No swelling. NERVOUS SYSTEM: No focal deficit. LABS: WBC 15.6, hemoglobin 11.4. D-dimer is 9.28. ASSESSMENT: 1. Acute abdomen with possible acute perforation abscess with possible sepsis, present on admission, status post exploratory laparotomy and ileocolectomy and washout of the peritoneal abscess. 2. Acute peritonitis. 3. Atrial fibrillation with a fast ventricular rate. 4. Acute hypoxic respiratory failure, on mechanical ventilation. 5. Acute COVID-19 infection with possible acute bibasilar pneumonia. 6. Hyponatremia. 7. Elevated D-dimer without any evidence of acute pulmonary embolism, possibly secondary to sepsis. 8. Increased creatinine with acute renal failure, acute tubular necrosis. 9. Leukopenia. 10.Increased white count. 11.History of hernia repair. 12.History of nicotine dependence. 13.Obesity with body mass index of 44.6. 14.FULL CODE. RECOMMENDATIONS AND DISCUSSION: In this 41-year-old gentleman who presented with multiple complex medical issues, we will monitor the patient closely, continue the current medications, continue symptomatic treatment. Continue with mechanical ventilation. The patient continues to be unresponsive, being sedated. Otherwise, continue with IV fluids. Closely follow with multiple consultants. The lactic acid has been normalized. Follow closely with Cardiology. COVID-19 continues to be positive. Prognosis guarded. Further recommendations to follow. MMODL / IJN: [id number] / MTDD
[2021-05-28 17:42] LABS: Glucose,Whole Blood 133 mg/dL (75-99)
[2021-05-28] MEDS: IBUPROFEN 400 MG TAB PO PRN (20:22)
[2021-05-28] MEDS: NOREPINEPHRINE 4 MG in SODIUM CHLORIDE 0.9% 250 ML IV SCH (23:21)
[2021-05-28] MEDS ORDERED: INSULIN ASPART (NovoLOG) 100 UNIT/ML VIAL SQ SCH (23:45)
[2021-05-29 00:01] LABS: Glucose,Whole Blood 138 mg/dL (75-99)
[2021-05-29 00:51] LABS: Ionized Calcium 4.8 mg/dL (4.5-5.3)
[2021-05-29] MEDS ORDERED: AMINO ACIDS 5 %/DEXTROSE 20 % 1,000 ML IV SCH (01:00)
[2021-05-29 01:21] LABS: Albumin 1.8 g/dL (3.5-5.0); Calcium 7.1 mg/dL (8.4-10.2); Magnesium 2.9 mg/dL (1.6-2.3); Phosphorus 2.5 mg/dL (2.5-4.5); Total Bilirubin 3.5 mg/dL (0.2-1.3); Total Protein 4.3 g/dL (6.3-8.2)
[2021-05-29 04:49] LABS: Basophils % (A) 0 %; Eosinophils % (A) 0 %; HCT 27.2 % (39.0-53.0); Hypochromasia Marked; Lymphocytes # (A) 0.5 k/uL (1.0-4.8); Lymphocytes % (A) 8 %; MCH 28.7 pg (25.0-35.0); MCHC 31.5 g/dL (31.0-37.0); MCV 91.1 fL (80.0-100.0); Mean Platelet Volume 8.2; Monocytes # (A) 0.2 k/uL (0-1.0); Monocytes % (A) 4 %; Neutrophils # (A) 5.1 k/uL (1.3-7.7); Neutrophils % (A) 86 %; Platelet Count 352 k/uL (150-450); RBC 2.98 m/uL (4.30-5.90); RDW 15.2 % (11.5-15.5); WBC 5.9 k/uL (3.8-10.6)
[2021-05-29 04:55] LABS: HGB 8.6 gm/dL (13.0-17.5)
[2021-05-29] MEDS: SODIUM CHLORIDE 0.9% 1,000 ML IV SCH ×2 (05:02→14:28)
[2021-05-29 05:45] LABS: Glucose,Whole Blood 162 mg/dL (75-99)
[2021-05-29] MEDS: INSULIN ASPART (NovoLOG) 100 UNIT/ML VIAL SQ SCH ×3 (05:57→18:45)
[2021-05-29 06:09] LABS: ABG Base Excess -5.6 mmol/L; ABG HCO3 20 mmol/L (21-25); ABG Oxygen Saturation 99.1 % (94-97); ABG PCO2 33 mmHg (35-45); ABG PH 7.39 (7.35-7.45); ABG PO2 166 mmHg (83-108); ABG TCO2 21 mmol/L (19-24); Allen Test Performed? Yes
[2021-05-29] MEDS: PIPERACILLIN-TAZOBACTAM 3.375 GM in SODIUM CHLORIDE 0.9% 100 ML IVPB SCH ×3 (09:02→23:49)
[2021-05-29] MEDS: CHLORHEXIDINE GLUCONATE 15 ML CUP MUCOUS MEM SCH ×2 (09:02→20:27)
[2021-05-29] MEDS: PANTOPRAZOLE 40 MG/10 ML VIAL IVP SCH ×2 (09:02→20:27)
[2021-05-29] MEDS: AMIODARONE 450 MG in DEXTROSE 5% IN WATER 250 ML IV SCH ×4 (09:03→22:29)
--- NOTE | 2021-05-29 09:03 | P.PN ---
Subjective Progress Note Date: 05/29/21 05/28/2020, the patient is being seen for a follow-up. Events from yesterday was noted and the patient was taken to the operating room earlier this morning. Note that the patient developed atrial fibrillation with rapid ventricular response and this was refractory to Cardizem drip and boluses. He was started also on IV heparin by the medical doctor and he was On a Cardizem drip at 15 mg an hour. At the same time, his condition was decompensating. He was given a liter of normal saline bolus. A repeat computed tomography scan of the abdomen and pelvis was done and showed no peritoneal increased slightly compared to the last examination. There was also evidence of multiple dilated small bowel loops suggestive of mechanical obstruction/ileus which is increased temperature last examination. There was also some fat stranding and mesenteric edema in the right mid abdomen. The source was thought to be the terminal ileum. Appendix was not clearly seen. There was also increased airspace con solidation/atelectasis in lung bases bilaterally. At that point, the patient was seen by general surgery and the patient was taken to the operating room. Intraoperatively, the patient was found to significant inflammatory bowel disease of the terminal ileum and right colon. There was also abscess in the right lower quadrant. Based on that, the patient was given an ileocolectomy and right-sided colectomy. The patient had end-to-end anastomosis. A ADRIAN drain was placed. The patient was kept intubated and the patient was brought into the intensive care unit following that I saw the patient immediately after he got to the ICU. He continues to have refractory atrial fibrillation. His heart rate remained tachycardic is and is around 190 despite being on Cardizem drip at 15 mg an hour. He remains on IV fluids and he is currently receiving normal saline at the rate of 150 mL an hour. He is on propofol running at 20 mcg/kg per minute. Is on a mechanical ventilator. The patient is on assist control rate of 16, tidal volume of 500, FiO2 of 100% with a PEEP of 5. The blood gases post arrival to the ICU showed a pH of 7.22 with a pCO2 of 48 and pO2 of 79. Peak airway pressures 24. Chest x- ray shows adequate positioning of the ET tube. No evidence of any airspace disease or consolidation this point in time. Urine output is being monitored and is quite dark. ADRIAN drains in place and output has been in the order of 100 or 200 mL of bloody drainage since arrival from the operating room. The patient also has a orogastric tube which is connected to low intermittent suction. Output is minimal at this point in time. He remains on IV Zosyn. 05/29/2021, the patient is being seen in follow-up in the intensive care unit. The patient is postop day #2 following a right colectomy, resection of terminal ileum, and end-to-end anastomosis. The patient is postop day #2. The patient remains intubated on a mechanical ventilator. Active issues work hypotension, 80 fibrillation with rapid ventricular response and acute kidney injury. For now, the patient remains on a mechanical ventilator. His been adequately sedated on propofol which is currently running at 35 mcg/kg per minute. The patient was aggressively resuscitated with IV fluids. He received a total of 4 L of bolus and his net fluid balance is been +6.6 L over the past 24 hours. For now, he is off pressors. He is still struggling with atrial progression with rapid ventricular response. He is on a Cardizem drip at 50 mg an hour and is also on amiodarone at 0.5 mg per minute as maintenance. His rhythm is still tachycardic and 120 and 140, irregular consistent with atrial fibrillation. The patient is on no anticoagulation for now per surgical recommendations. He is receiving metoprolol for rate control. Meanwhile, the patient was started for enteral feeding and nutritional support to the surgical wound site is dry clean and intact. ADRIAN drain is serosanguineous and output is minimal at this p oint. Bowel sounds are hypoactive. Abdomen is slightly distended. OG tube is in place and the patient is on a low intermittent suction with minimal amount of output. His echoes of 5.9 which is improved compared to yesterday. The patient remains on IV Zosyn as an empiric antibiotic coverage. Flagyl will be added. While on the mechanical ventilator, his chest x-ray from today showing worsening in the right lung opacification which is probably an area of consolidation and effusion. Orotracheal tube is in a good location. He remains in a volume cycled with a tidal volume of 400, rate of 24 with an FiO2 of 100% and a PEEP of 8. I reviewed the blood gas and the blood gases showed from this morning a pH of 7.39 with a pCO2 of 33 and pO2 of 166. Nevertheless, the morning. pulse ox in the order of 93%. The history ventilator changes were done accordingly. There was a drop in hemoglobin down to 8.6 probably due to dilutional effect. Objective - Vital Signs Vital signs: Vital Signs Temp 100.4 F H 05/29/21 04:00 Pulse 128 H 05/29/21 07:00 Resp 24 05/29/21 07:00 BP 103/70 05/29/21 06:15 Pulse Ox 98 05/29/21 07:00 Intake & Output 05/28/21 05/29/21 05/29/21 18:59 06:59 18:59 Intake Total 5593.596 2521.132 202.5 Output Total 800 690 40 Balance 4793.596 1831.132 162.5 Weight 136.078 kg 140 kg Intake: IV 5401.2 2147.6 202.5 Amino Acids 5 %/Dextrose 150 30 20 % 1,000 ml @ 30 mls/hr IV .Q24H [facility] Rx#: [id number] Amiodarone 360 mg In 199.8 Dextrose 5% in Water 200 ml @ 1 MG/MIN 33.333 mls/ hr IV .Q6H [facility] Rx#: [id number] Amiodarone 450 mg In 66.4 181.6 16.5 Dextrose 5% in Water 250 ml @ 0.5 MG/MIN 16.667 mls/hr IV .Q15H [facility] Rx#: [id number] Diltiazem 125 mg In 35 Sodium Chloride 0.9% 100 ml @ 5 MG/HR 5 mls/hr IV .Q24H [facility] Rx#:[id number] Piperacillin-Tazobactam 3 200 100 .375 gm In Sodium Chloride 0.9% 100 ml @ 25 mls/hr IVPB Q8HR [facility] Rx# :[id number] Sodium Chloride 0.9% 1, 900 1650 150 000 ml @ 150 mls/hr IV . Q6H40M [facility] Rx#:[id number] Sodium Chloride 0.9% 1, 4000 000 ml @ 999 mls/hr IV . Q1H1M [facility] Rx#:[id number] pressure bags 66 6 Intake, IV Titration 192.396 373.532 Amount Diltiazem 125 mg In 118.5 Sodium Chloride 0.9% 100 ml @ 5 MG/HR 5 mls/hr IV .Q24H [facility] Rx#:[id number] Norepinephrine 4 mg In 120.196 Sodium Chloride 0.9% 250 ml @ 0.05 MCG/KG/MIN 25. 923 mls/hr IV .Q9H48M [facility] Rx#:[id number] propofoL 1,000 mg In 192.396 134.836 Empty Bag 1 bag @ Titrate IV .Q0M [facility] Rx#: [id number] Output: Drainage 350 145 Abdomen 350 145 Urine 450 545 40 Other: Voiding Method Indwelling Catheter Indwelling Catheter ABP, PAP, CO, CI - Last Documented Arterial Blood Pressure 90/53 - Exam Gen. appearance the patient is calm and comfortable , the patient is currently intubated on a mechanical ventilator. The patient has an orogastric and orotracheal tube and both of them are in place and the patient is sedated with propofol running at 35 mg/kg/m. Head exam was generally normal. There was no scleral icterus or corneal arcus. Mucous membranes were moist. Neck was supple and without jugular venous distension, thyromegaly, or carotid bruits. Carotids were easily palpable bilaterally. There was no adenopathy. GENERAL: Well-developed in no acute distress. HEENT: Head is normocephalic. RESPIRATORY: Respirations even and unlabored. The patient has no crackles in the rest of the equal and symmetrical bilaterally Cardiac exam revealed the PMI to be normally situated and sized. The rhythm was irregular/tachcardic and no extrasystoles were noted during several minutes of auscultation. The first and second heart sounds were normal and physiologic splitting of the second heart sound was noted. There were no murmurs, rubs, clicks, or gallops. Abdominal exam shows no significant guarding. The patient has sluggish bowel sounds. The patient has a ADRIAN drain in the right lower quadrant. Output has been around 200 mL of bloody serosanguineous material since the patient arrived from the operating room. No direct tenderness. No rebound tenderness. No significant guarding at this point in time. EXTREMITIES: Normal range of motion. Neurologically, the patient is sedated and the patient is currently on propofol. - Labs CBC & Chem 7: 05/29/21 04:25 05/29/21 00:30 Labs: Abnormal Lab Results - Last 24 Hours (Table) 05/27/21 05/28/21 05/28/21 Range/Units 15:45 08:48 08:58 WBC 15.6 H (3.8-10.6) k/uL RBC 4.07 L (4.30-5.90) m/uL Hgb 11.4 L (13.0-17.5) gm/dL Hct 37.8 L (39.0-53.0) % MCHC 30.2 L (31.0-37.0) g/dL Plt Count 707 H (150-450) k/uL Neutrophils # 14.3 H (1.3-7.7) k/uL Lymphocytes # 0.6 L (1.0-4.8) k/uL ABG pH 7.22 L (7.35-7.45) ABG pCO2 48 H (35-45) mmHg ABG pO2 79 L (83-108) mmHg ABG HCO3 20 L (21-25) mmol/L ABG O2 Saturation 91.6 L (94-97) % Chloride (98-107) mmol/L Carbon Dioxide (22-30) mmol/L BUN (9-20) mg/dL Creatinine (0.66-1.25) mg/dL Glucose (74-99) mg/dL POC Glucose (mg/dL) (75-99) mg/dL Calcium (8.4-10.2) mg/dL Magnesium (1.6-2.3) mg/dL Total Bilirubin (0.2-1.3) mg/dL AST (17-59) U/L Total Protein (6.3-8.2) g/dL Albumin (3.5-5.0) g/dL Coronavirus (PCR) Detected A (Not Detected) 05/28/21 05/28/21 05/28/21 Range/Units 08:58 11:57 12:07 WBC (3.8-10.6) k/uL RBC (4.30-5.90) m/uL Hgb (13.0-17.5) gm/dL Hct (39.0-53.0) % MCHC (31.0-37.0) g/dL Plt Count (150-450) k/uL Neutrophils # (1.3-7.7) k/uL Lymphocytes # (1.0-4.8) k/uL ABG pH 7.29 L (7.35-7.45) ABG pCO2 (35-45) mmHg ABG pO2 109 H (83-108) mmHg ABG HCO3 19 L (21-25) mmol/L ABG O2 Saturation 97.4 H (94-97) % Chloride 113 H (98-107) mmol/L Carbon Dioxide 17 L (22-30) mmol/L BUN (9-20) mg/dL Creatinine (0.66-1.25) mg/dL Glucose (74-99) mg/dL POC Glucose (mg/dL) 148 H (75-99) mg/dL Calcium (8.4-10.2) mg/dL Magnesium (1.6-2.3) mg/dL Total Bilirubin (0.2-1.3) mg/dL AST (17-59) U/L Total Protein (6.3-8.2) g/dL Albumin (3.5-5.0) g/dL Coronavirus (PCR) (Not Detected) 05/28/21 05/28/21 05/29/21 Range/Units 17:40 23:59 00:30 WBC (3.8-10.6) k/uL RBC (4.30-5.90) m/uL Hgb (13.0-17.5) gm/dL Hct (39.0-53.0) % MCHC (31.0-37.0) g/dL Plt Count (150-450) k/uL Neutrophils # (1.3-7.7) k/uL Lymphocytes # (1.0-4.8) k/uL ABG pH (7.35-7.45) ABG pCO2 (35-45) mmHg ABG pO2 (83-108) mmHg ABG HCO3 (21-25) mmol/L ABG O2 Saturation (94-97) % Chloride 116 H (98-107) mmol/L Carbon Dioxide 17 L (22-30) mmol/L BUN 44 H (9-20) mg/dL Creatinine 1.42 H (0.66-1.25) mg/dL Glucose 143 H (74-99) mg/dL POC Glucose (mg/dL) 133 H 138 H (75-99) mg/dL Calcium 7.1 L (8.4-10.2) mg/dL Magnesium 2.9 H (1.6-2.3) mg/dL Total Bilirubin 3.5 H (0.2-1.3) mg/dL AST 85 H (17-59) U/L Total Protein 4.3 L (6.3-8.2) g/dL Albumin 1.8 L (3.5-5.0) g/dL Coronavirus (PCR) (Not Detected) 05/29/21 05/29/21 05/29/21 Range/Units 04:25 05:43 06:06 WBC (3.8-10.6) k/uL RBC 2.98 L (4.30-5.90) m/uL Hgb 8.6 L D (13.0-17.5) gm/dL Hct 27.2 L (39.0-53.0) % MCHC (31.0-37.0) g/dL Plt Count (150-450) k/uL Neutrophils # (1.3-7.7) k/uL Lymphocytes # 0.5 L (1.0-4.8) k/uL ABG pH (7.35-7.45) ABG pCO2 33 L (35-45) mmHg ABG pO2 166 H (83-108) mmHg ABG HCO3 20 L (21-25) mmol/L ABG O2 Saturation 99.1 H (94-97) % Chloride (98-107) mmol/L Carbon Dioxide (22-30) mmol/L BUN (9-20) mg/dL Creatinine (0.66-1.25) mg/dL Glucose (74-99) mg/dL POC Glucose (mg/dL) 162 H (75-99) mg/dL Calcium (8.4-10.2) mg/dL Magnesium (1.6-2.3) mg/dL Total Bilirubin (0.2-1.3) mg/dL AST (17-59) U/L Total Protein (6.3-8.2) g/dL Albumin (3.5-5.0) g/dL Coronavirus (PCR) (Not Detected) Microbiology - Last 24 Hours (Table) 05/28/21 07:37 Gram Stain - Preliminary Abdomen Wound Culture - Preliminary 05/25/21 22:33 Blood Culture - Preliminary Blood No Growth after 72 hours 05/25/21 21:27 Blood Culture - Preliminary Blood No Growth after 72 hours 05/28/21 07:37 Anaerobic Culture - Preliminary Abdomen Assessment and Plan Plan: 1 acute abdomen related to inflammatory bowel disease involving the terminal ileum along with abscess formation and perforation with pneumoperitoneum which clinically got worse and the patient also developed some ileus based on the most recent CAT scan of the abdomen. The patient underwent surgical resection of the terminal ileum of the colon and he underwent ileocolectomy and colectomy of the right colon. Patient is currently postop day #1. The patient remains nothing by mouth. There was a drop ordered rapid drop in albumin. The patient was started on TPN for nutritional support. Currently off pressors. The patient has been adequately resuscitated IV fluids. He is a 6.6 L positive over the past 24 hours. He is on IV Zosyn for now. 2 atrial fibrillation with rapid ventricular response, refractory to Cardizem drip and amiodarone drip. The patient was also given metoprolol. The poor control of atrial fibrillation is probably related to his intra-abdominal sepsis post perforation and abdominal sepsis. 3 COVID 19 related pneumonia/infection currently on RA. The patient is not vaccinated, note that the repeat COVID 19 testing has become negative and the chest x-ray showing some atelectatic changes in lung bases bilaterally. There is further consolidation of the right lung along with development of an effusion. The patient remains on a mechanical ventilator. This is a ventilator changes will be done. 4 fever secondary to above 5 hyponatremia, improving and the sodium level is normalized 6 acute kidney Injury, creatinine stable and slightly improved 7 obesity with a BMI of 44.3 8 acute lactic acidosis, improved. The patient continues to have a component of non-anion gap metabolic acidosis. 9 leukocytosis, improved 10 anemia with hemoglobin 8.6, likely dilutional Plan The patient will be kept on mechanical ventilator for now increase the PEEP of the tendon drop the FiO2 down to 80%. Repeat a blood gas Chest x-ray in a.m. Management of atrial fibrillation per cardiology. The patient is currently on a combination of metoprolol IV, amiodarone IV and Cardizem IV. To coagulation for now for surgical recommendation the patient will be started on Lovenox 40 mg subcu for DVT prophylaxis. Continued IV Zosyn for now. add also IV Flagyl Monitor electrolytes. Monitor renal function. Keep the patient on propofol for now for sedation and titrate to maintain adequate sedation Keep the patient nothing by mouth for now. OG output is minimal and it's intermittent low suctioning at this point in time. Initiate enteral feeding for nutritional support Decrease IV fluids to 75 mL of normal saline Monitor the output from the ADRIAN drain Dilaudid for pain control IV Protonix Condition is critical and will continue to follow make further recommendations based on his progress. Case was discussed with general surgery. This evaluation was on a more than 30 minutes. Time with Patient: Greater than 30
--- NOTE | 2021-05-29 09:03 | P.PN ---
Subjective HISTORY OF PRESENTING ILLNESS patient is a 41-year-old male admitted with pneumoperitoneum. He has no known cardiac medical history. 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 We were consulted for an abnormal EKG. EKG shows sinus tachycardia with poor R wave progression and nonspecific ST-T wave changes and is negative for ischemic changes. Patient is Covid positive, he is found to have chronic appendicitis with possible perforation and possible sepsis. Patient's sinus tachycardia is believed to be related to his appendicitis and possible sepsis. patient was given a one-time dose of Lopressor 25 mg last night. Will start patient on Lop ressor 25 mg twice a day. an echocardiogram was performed and reviewed, patient has a normal LV function and no abnormal wall motion or valvular disease. Patient will be placed on telemetry and troponins will be drawn 1 to rule out ischemia. Diagnostics: blood pressure 116/74, heart rate 130, 93% on 3 L nasal cannula, afebrile Labs-hemoglobin 13.5, potassium 4, BUN 43, creatinine 1.7, plasma lactic acid 3.6, AST 3.3, ALt 80 Chest x-ray shows patchy and interstitial opacities mild Cardiology Venous Doppler was negative bilaterally for DVTs Chest CT showed ground glass findings correlating bilateral Covid pneumonia, mild pneumoperitoneum. 05/28 Patient seen and examined. Patient went into atrial fibrillation with RVR with heart rates in the 180s the 190s and apparently had worsened abdominal pain. It. He had a acute abdomen and therefore was taken for exploratory laparotomy with partial colectomy with findings concerning for underlying Crohn's disease and abscess. Patient was placed on a Cardizem drip with blood pressures predominantly controlled in the 120s over 50s however heart rates still on the 160s up to 180s. No anticoagulation has been placed secondary to recent surge ry. He remains sedated and intubated on ventilator. 05/29 Patient seen and examined. Patient continues to be in atrial fibrillation with heart rates are predominantly 120s to 140s. He is on the amiodarone drip at 0.5 as well as a Cardizem drip at 10 and the metoprolol 25 twice a day. Unfortunately he is also been off and on vasopressors, currently off of them. Remains on ventilator with FiO2 80% and a PEEP of 10. Mild decrease in hemoglobin noted. No anticoagulation secondary recent surgery. No bowel movements per nursing. Albumin noted to decrease down to 1.8, bilirubin noted to be elevated at 3.5 and liver enzymes borderline. He has been receiving IV fluids with 150 mL per hour. PHYSICAL EXAMINATION Vital signs reviewed. CONSTITUTIONAL: No apparent distress, intubated and sedated, ill appearing HEENT: Head is normocephalic. Pupils are equal, round. Sclerae anicteric. Mucous membranes of the mouth are moist. No JVD. No carotid bruit. CHEST EXAMINATION: Lungs are clear to auscultation. No chest wall tenderness is noted on palpation or with deep breathing. HEART EXAMINATION: Regular rate and rhythm. S1, S2 heard. No murmurs, gallops or rub. ABDOMEN: Soft, nontender. Positive bowel sounds. EXTREMITIES: 2+ peripheral pulses, no lower extremity edema and no calf tenderne ss. NEUROLOGIC EXAMINATION: Patient is sedated and intubated ASSESSMENT Sinus tachycardia Pneumoperitoneum Covid pneumonia Paroxysmal atrial fibrillation with RVR, new onset Acute on chronic respiratory failure Septic shock Plan: Echo report not finalized however personally reviewed and appears to have preserved EF without any significant pericardial effusion. Heart rates continue to be elevated however suspect this is compensatory for his sepsis and we will attempt to control with amiodarone drip, Cardizem. He is having some hypotension and we will stop the metoprolol for now and uptitrate Cardizem is able and patient may need additional vasopressors. Monitor for volume overload however continue with IV fluids giving sepsis. Continue supportive care. Further recommendations to follow. No anticoagulation at this time. Objective - Vital Signs Vital signs: Vital Signs Temp 100.4 F H 05/29/21 04:00 Pulse 128 H 05/29/21 07:00 Resp 24 05/29/21 07:00 BP 103/70 05/29/21 06:15 Pulse Ox 98 05/29/21 07:00 Intake & Output 05/28/21 05/29/21 05/29/21 18:59 06:59 18:59 Intake Total 5593.596 2521.132 202.5 Output Total 800 690 40 Balance 4793.596 1831.132 162.5 Weight 136.078 kg 140 kg Intake: IV 5401.2 2147.6 202.5 Amino Acids 5 %/Dextrose 150 30 20 % 1,000 ml @ 30 mls/hr IV .Q24H [facility] Rx#: [id number] Amiodarone 360 mg In 199.8 Dextrose 5% in Water 200 ml @ 1 MG/MIN 33.333 mls/ hr IV .Q6H [facility] Rx#: [id number] Amiodarone 450 mg In 66.4 181.6 16.5 Dextrose 5% in Water 250 ml @ 0.5 MG/MIN 16.667 mls/hr IV .Q15H [facility] Rx#: [id number] Diltiazem 125 mg In 35 Sodium Chloride 0.9% 100 ml @ 5 MG/HR 5 mls/hr IV .Q24H [facility] Rx#:[id number] Piperacillin-Tazobactam 3 200 100 .375 gm In Sodium Chloride 0.9% 100 ml @ 25 mls/hr IVPB Q8HR [facility] Rx# :[id number] Sodium Chloride 0.9% 1, 900 1650 150 000 ml @ 150 mls/hr IV . Q6H40M [facility] Rx#:[id number] Sodium Chloride 0.9% 1, 4000 000 ml @ 999 mls/hr IV . Q1H1M [facility] Rx#:[id number] pressure bags 66 6 Intake, IV Titration 192.396 373.532 Amount Diltiazem 125 mg In 118.5 Sodium Chloride 0.9% 100 ml @ 5 MG/HR 5 mls/hr IV .Q24H [facility] Rx#:[id number] Norepinephrine 4 mg In 120.196 Sodium Chloride 0.9% 250 ml @ 0.05 MCG/KG/MIN 25. 923 mls/hr IV .Q9H48M [facility] Rx#:[id number] propofoL 1,000 mg In 192.396 134.836 Empty Bag 1 bag @ Titrate IV .Q0M [facility] Rx#: [id number] Output: Drainage 350 145 Abdomen 350 145 Urine 450 545 40 Other: Voiding Method Indwelling Catheter Indwelling Catheter ABP, PAP, CO, CI - Last Documented Arterial Blood Pressure 90/53 - Labs CBC & Chem 7: 05/29/21 04:25 05/29/21 00:30 Labs: Abnormal Lab Results - Last 24 Hours (Table) 05/27/21 05/28/21 05/28/21 Range/Units 15:45 08:58 08:58 WBC 15.6 H (3.8-10.6) k/uL RBC 4.07 L (4.30-5.90) m/uL Hgb 11.4 L (13.0-17.5) gm/dL Hct 37.8 L (39.0-53.0) % MCHC 30.2 L (31.0-37.0) g/dL Plt Count 707 H (150-450) k/uL Neutrophils # 14.3 H (1.3-7.7) k/uL Lymphocytes # 0.6 L (1.0-4.8) k/uL ABG pH (7.35-7.45) ABG pCO2 (35-45) mmHg ABG pO2 (83-108) mmHg ABG HCO3 (21-25) mmol/L ABG O2 Saturation (94-97) % Chloride 113 H (98-107) mmol/L Carbon Dioxide 17 L (22-30) mmol/L BUN (9-20) mg/dL Creatinine (0.66-1.25) mg/dL Glucose (74-99) mg/dL POC Glucose (mg/dL) (75-99) mg/dL Calcium (8.4-10.2) mg/dL Magnesium (1.6-2.3) mg/dL Total Bilirubin (0.2-1.3) mg/dL AST (17-59) U/L Total Protein (6.3-8.2) g/dL Albumin (3.5-5.0) g/dL Coronavirus (PCR) Detected A (Not Detected) 05/28/21 05/28/21 05/28/21 Range/Units 11:57 12:07 17:40 WBC (3.8-10.6) k/uL RBC (4.30-5.90) m/uL Hgb (13.0-17.5) gm/dL Hct (39.0-53.0) % MCHC (31.0-37.0) g/dL Plt Count (150-450) k/uL Neutrophils # (1.3-7.7) k/uL Lymphocytes # (1.0-4.8) k/uL ABG pH 7.29 L (7.35-7.45) ABG pCO2 (35-45) mmHg ABG pO2 109 H (83-108) mmHg ABG HCO3 19 L (21-25) mmol/L ABG O2 Saturation 97.4 H (94-97) % Chloride (98-107) mmol/L Carbon Dioxide (22-30) mmol/L BUN (9-20) mg/dL Creatinine (0.66-1.25) mg/dL Glucose (74-99) mg/dL POC Glucose (mg/dL) 148 H 133 H (75-99) mg/dL Calcium (8.4-10.2) mg/dL Magnesium (1.6-2.3) mg/dL Total Bilirubin (0.2-1.3) mg/dL AST (17-59) U/L Total Protein (6.3-8.2) g/dL Albumin (3.5-5.0) g/dL Coronavirus (PCR) (Not Detected) 05/28/21 05/29/21 05/29/21 Range/Units 23:59 00:30 04:25 WBC (3.8-10.6) k/uL RBC 2.98 L (4.30-5.90) m/uL Hgb 8.6 L D (13.0-17.5) gm/dL Hct 27.2 L (39.0-53.0) % MCHC (31.0-37.0) g/dL Plt Count (150-450) k/uL Neutrophils # (1.3-7.7) k/uL Lymphocytes # 0.5 L (1.0-4.8) k/uL ABG pH (7.35-7.45) ABG pCO2 (35-45) mmHg ABG pO2 (83-108) mmHg ABG HCO3 (21-25) mmol/L ABG O2 Saturation (94-97) % Chloride 116 H (98-107) mmol/L Carbon Dioxide 17 L (22-30) mmol/L BUN 44 H (9-20) mg/dL Creatinine 1.42 H (0.66-1.25) mg/dL Glucose 143 H (74-99) mg/dL POC Glucose (mg/dL) 138 H (75-99) mg/dL Calcium 7.1 L (8.4-10.2) mg/dL Magnesium 2.9 H (1.6-2.3) mg/dL Total Bilirubin 3.5 H (0.2-1.3) mg/dL AST 85 H (17-59) U/L Total Protein 4.3 L (6.3-8.2) g/dL Albumin 1.8 L (3.5-5.0) g/dL Coronavirus (PCR) (Not Detected) 05/29/21 05/29/21 Range/Units 05:43 06:06 WBC (3.8-10.6) k/uL RBC (4.30-5.90) m/uL Hgb (13.0-17.5) gm/dL Hct (39.0-53.0) % MCHC (31.0-37.0) g/dL Plt Count (150-450) k/uL Neutrophils # (1.3-7.7) k/uL Lymphocytes # (1.0-4.8) k/uL ABG pH (7.35-7.45) ABG pCO2 33 L (35-45) mmHg ABG pO2 166 H (83-108) mmHg ABG HCO3 20 L (21-25) mmol/L ABG O2 Saturation 99.1 H (94-97) % Chloride (98-107) mmol/L Carbon Dioxide (22-30) mmol/L BUN (9-20) mg/dL Creatinine (0.66-1.25) mg/dL Glucose (74-99) mg/dL POC Glucose (mg/dL) 162 H (75-99) mg/dL Calcium (8.4-10.2) mg/dL Magnesium (1.6-2.3) mg/dL Total Bilirubin (0.2-1.3) mg/dL AST (17-59) U/L Total Protein (6.3-8.2) g/dL Albumin (3.5-5.0) g/dL Coronavirus (PCR) (Not Detected) Microbiology - Last 24 Hours (Table) 05/28/21 07:37 Gram Stain - Preliminary Abdomen Wound Culture - Preliminary 05/25/21 22:33 Blood Culture - Preliminary Blood No Growth after 72 hours 05/25/21 21:27 Blood Culture - Preliminary Blood No Growth after 72 hours 05/28/21 07:37 Anaerobic Culture - Preliminary Abdomen
[2021-05-29] MEDS: ENOXAPARIN 40 MG/0.4 ML SYRINGE SQ SCH (09:05)
--- NOTE | 2021-05-29 09:41 | XR ---
EXAMINATION TYPE: XR chest 1V portable DATE OF EXAM: 05/29/2021 COMPARISON: 05/28/2021 INDICATION: Tube placement TECHNIQUE: Single frontal view of the chest is obtained. FINDINGS: The heart size is normal. The pulmonary vasculature is indistinct. Diffuse scattered infiltrates are present. There is silhouetting of the right diaphragm. Endotracheal tube tip is 4.2 cm above the jossie. Nasogastric tube tip may be in the upper thorax tip appears to lie above the level of the endotracheal tube. This should be advanced. IMPRESSION: 1. Right lower lobe atelectasis or effusion. 2. Bilateral scattered lung infiltrates. 3. Endotracheal tube tip appears to be within the thoracic inlet region. Repositioning is recommended .
[2021-05-29] MEDS: DILTIAZEM 125 MG in SODIUM CHLORIDE 0.9% 100 ML IV SCH ×3 (10:45→22:28)
[2021-05-29] MEDS: metroNIDAZOLE-NS PMX 500 MG in SALINE 1 100ML.BAG IVPB SCH ×3 (11:08→23:49)
--- NOTE | 2021-05-29 11:09 | P.PN ---
Subjective Progress Note Date: 05/29/21 Principal diagnosis: Crohn's disease with abscess Patient's postoperative day 1 from exploratory laparotomy with ileocolectomy for Crohn's disease with abscess. Patient remains in atrial fibrillation. His chest x-ray shows a worsening pneumonitis picture Objective - Vital Signs Vital signs: Vital Signs Temp 99.9 F H 05/29/21 08:30 Pulse 151 H 05/29/21 09:00 Resp 30 H 05/29/21 09:00 BP 103/70 05/29/21 06:15 Pulse Ox 92 L 05/29/21 09:00 Intake & Output 05/28/21 05/29/21 05/29/21 18:59 06:59 18:59 Intake Total 5593.596 2771.132 732.82 Output Total 800 690 215 Balance 4793.596 2081.132 517.82 Weight 136.078 kg 140 kg Intake: IV 5401.2 2147.6 671.5 Amino Acids 5 %/Dextrose 150 90 20 % 1,000 ml @ 30 mls/hr IV .Q24H [facility] Rx#: [id number] Amiodarone 360 mg In 199.8 Dextrose 5% in Water 200 ml @ 1 MG/MIN 33.333 mls/ hr IV .Q6H [facility] Rx#: [id number] Amiodarone 450 mg In 66.4 181.6 16.5 Dextrose 5% in Water 250 ml @ 0.5 MG/MIN 16.667 mls/hr IV .Q15H [facility] Rx#: [id number] Diltiazem 125 mg In 35 Sodium Chloride 0.9% 100 ml @ 5 MG/HR 5 mls/hr IV .Q24H [facility] Rx#:[id number] Piperacillin-Tazobactam 3 200 100 100 .375 gm In Sodium Chloride 0.9% 100 ml @ 25 mls/hr IVPB Q8HR [facility] Rx# :[id number] Sodium Chloride 0.9% 1, 900 1650 450 000 ml @ 75 mls/hr IV . [id number] [facility] Rx#:[id number] Sodium Chloride 0.9% 1, 4000 000 ml @ 999 mls/hr IV . Q1H1M [facility] Rx#:[id number] pressure bags 66 15 Intake, IV Titration 192.396 623.532 61.32 Amount Amiodarone 450 mg In 250 Dextrose 5% in Water 250 ml @ 0.5 MG/MIN 16.667 mls/hr IV .Q15H [facility] Rx#: [id number] Diltiazem 125 mg In 118.5 Sodium Chloride 0.9% 100 ml @ 5 MG/HR 5 mls/hr IV .Q24H [facility] Rx#:[id number] Norepinephrine 4 mg In 120.196 0 Sodium Chloride 0.9% 250 ml @ 0.05 MCG/KG/MIN 25. 923 mls/hr IV .Q9H48M [facility] Rx#:[id number] propofoL 1,000 mg In 192.396 134.836 61.32 Empty Bag 1 bag @ Titrate IV .Q0M [facility] Rx#: [id number] Output: Drainage 350 145 Abdomen 350 145 Urine 450 545 215 Other: Voiding Method Indwelling Catheter Indwelling Catheter ABP, PAP, CO, CI - Last Documented Arterial Blood Pressure 110/57 - Gastrointestinal Gastrointestinal Comment(s): Abdomen soft. Incision is clean dry intact General gastrointestinal: Present: absent bowel sounds - Labs CBC & Chem 7: 05/29/21 04:25 05/29/21 00:30 Labs: Abnormal Lab Results - Last 24 Hours (Table) 05/27/21 05/28/21 05/28/21 Range/Units 15:45 11:57 12:07 RBC (4.30-5.90) m/uL Hgb (13.0-17.5) gm/dL Hct (39.0-53.0) % Lymphocytes # (1.0-4.8) k/uL ABG pH 7.29 L (7.35-7.45) ABG pCO2 (35-45) mmHg ABG pO2 109 H (83-108) mmHg ABG HCO3 19 L (21-25) mmol/L ABG O2 Saturation 97.4 H (94-97) % Chloride (98-107) mmol/L Carbon Dioxide (22-30) mmol/L BUN (9-20) mg/dL Creatinine (0.66-1.25) mg/dL Glucose (74-99) mg/dL POC Glucose (mg/dL) 148 H (75-99) mg/dL Calcium (8.4-10.2) mg/dL Magnesium (1.6-2.3) mg/dL Total Bilirubin (0.2-1.3) mg/dL AST (17-59) U/L Total Protein (6.3-8.2) g/dL Albumin (3.5-5.0) g/dL Coronavirus (PCR) Detected A (Not Detected) 05/28/21 05/28/21 05/29/21 Range/Units 17:40 23:59 00:30 RBC (4.30-5.90) m/uL Hgb (13.0-17.5) gm/dL Hct (39.0-53.0) % Lymphocytes # (1.0-4.8) k/uL ABG pH (7.35-7.45) ABG pCO2 (35-45) mmHg ABG pO2 (83-108) mmHg ABG HCO3 (21-25) mmol/L ABG O2 Saturation (94-97) % Chloride 116 H (98-107) mmol/L Carbon Dioxide 17 L (22-30) mmol/L BUN 44 H (9-20) mg/dL Creatinine 1.42 H (0.66-1.25) mg/dL Glucose 143 H (74-99) mg/dL POC Glucose (mg/dL) 133 H 138 H (75-99) mg/dL Calcium 7.1 L (8.4-10.2) mg/dL Magnesium 2.9 H (1.6-2.3) mg/dL Total Bilirubin 3.5 H (0.2-1.3) mg/dL AST 85 H (17-59) U/L Total Protein 4.3 L (6.3-8.2) g/dL Albumin 1.8 L (3.5-5.0) g/dL Coronavirus (PCR) (Not Detected) 05/29/21 05/29/21 05/29/21 Range/Units 04:25 05:43 06:06 RBC 2.98 L (4.30-5.90) m/uL Hgb 8.6 L D (13.0-17.5) gm/dL Hct 27.2 L (39.0-53.0) % Lymphocytes # 0.5 L (1.0-4.8) k/uL ABG pH (7.35-7.45) ABG pCO2 33 L (35-45) mmHg ABG pO2 166 H (83-108) mmHg ABG HCO3 20 L (21-25) mmol/L ABG O2 Saturation 99.1 H (94-97) % Chloride (98-107) mmol/L Carbon Dioxide (22-30) mmol/L BUN (9-20) mg/dL Creatinine (0.66-1.25) mg/dL Glucose (74-99) mg/dL POC Glucose (mg/dL) 162 H (75-99) mg/dL Calcium (8.4-10.2) mg/dL Magnesium (1.6-2.3) mg/dL Total Bilirubin (0.2-1.3) mg/dL AST (17-59) U/L Total Protein (6.3-8.2) g/dL Albumin (3.5-5.0) g/dL Coronavirus (PCR) (Not Detected) Microbiology - Last 24 Hours (Table) 05/28/21 07:37 Gram Stain - Preliminary Abdomen Wound Culture - Preliminary Gram Neg Bacilli 05/25/21 22:33 Blood Culture - Preliminary Blood No Growth after 72 hours 05/25/21 21:27 Blood Culture - Preliminary Blood No Growth after 72 hours 05/28/21 07:37 Anaerobic Culture - Preliminary Abdomen Assessment and Plan Assessment: covid pneumonia. Crohn's disease with abscess Patient's covid 19 test from yesterday is positive. His chest x-ray shows a worsening pneumonitis picture. Patient is requiring intermittent pressor support. Patient will continue receive supportive care. I did discuss his condition with the patient's .
[2021-05-29] MEDS: HYDROmorphone 0.5 MG/0.5 ML SYRINGE IVP PRN ×2 (11:26→17:03)
[2021-05-29 13:25] LABS: Glucose,Whole Blood 172 mg/dL (75-99)
[2021-05-29] MEDS: NOREPINEPHRINE 4 MG in SODIUM CHLORIDE 0.9% 250 ML IV SCH ×3 (13:51→20:27)
[2021-05-29 18:25] LABS: Glucose,Whole Blood 169 mg/dL (75-99)
--- NOTE | 2021-05-29 19:35 | PN ---
PROGRESS NOTE DATE OF SERVICE: 05/29/2021 This 41-year-old gentleman who was admitted with acute abdomen also had COVID-19 infection. The patient had acute perforation, possibly secondary to ileal perforation secondary to Crohn's disease. The patient also had features of sepsis. The patient had exploratory laparotomy and ileocolectomy. The patient is mechanically ventilated. Patient is being closely monitored. The most recent chest x-ray, which was reviewed personally by me, showed elevated right hemidiaphragm and some fluid also. Past medical history reviewed. Review of systems could not be taken. The patient also has atrial fibrillation, controlled with amiodarone as well as diltiazem drip. CURRENT MEDICATIONS: Reviewed. They include TPN. Otherwise, amiodarone drip, Lovenox, Dilaudid, Motrin, NovoLog, Flagyl. Other medications and doses are reviewed. Patient is on IV Flagyl and Zosyn, also. PHYSICAL EXAMINATION: Patient is mechanically ventilated and sedated. Pulse 107, blood pressure ntd, respiration 24, temperature 100 degrees, pulse ox 98% on mechanical ventilation. Vent settings are noted. HEENT: Conjunctivae normal. NECK: No jugular venous distention. CARDIOVASCULAR: S1, S2 muffled. RESPIRATION: Breath sounds diminished at the bases. Bilateral scattered rhonchi and crackles. ABDOMEN: Soft. Status post surgery. LEGS: No edema. No swelling. NERVOUS SYSTEM: No focal deficit. LABS: WBC ntd, hemoglobin is 8.6. ABGs noted. ASSESSMENT: 1. Acute abdomen with possible acute perforation, abscess, with possible sepsis, present on admission, status post exploratory laparotomy and ileocolectomy and washout of the peritoneal abscess. 2. Acute peritonitis. 3. Atrial fibrillation with a fast ventricular rate. 4. Acute hypoxic respiratory failure, on mechanical ventilation. 5. Acute COVID-19 infection with possible acute bibasilar pneumonia. 6. Hyponatremia. 7. Elevated D-dimer without any evidence of acute pulmonary embolism, possibly secondary to sepsis. 8. Increased creatinine with acute renal failure, acute tubular necrosis. 9. Leukopenia. 10.Increased white count. 11.History of hernia repair. 12.History of nicotine dependence. 13.Obesity with body mass index of 44.6. 14.FULL CODE. RECOMMENDATIONS AND DISCUSSION: I recommend to continue current medications, continue with the monitoring, symptomatic treatment. Continue with antibiotics. Repeat blood cultures and sputum cultures and grier cultures. Closely follow with Pulmonary as well as Surgery. Further recommendations to follow. MMODL / IJN: [id number] / LATISHA
[2021-05-29 23:20] LABS: Glucose,Whole Blood 171 mg/dL (75-99)
[2021-05-30] MEDS: INSULIN ASPART (NovoLOG) 100 UNIT/ML VIAL SQ SCH ×4 (04:48→17:38)
[2021-05-30] MEDS: SODIUM CHLORIDE 0.9% 1,000 ML IV SCH (04:48)
[2021-05-30] MEDS: metroNIDAZOLE-NS PMX 500 MG in SALINE 1 100ML.BAG IVPB SCH ×4 (04:56→23:50)
[2021-05-30 05:38] LABS: ABG Base Excess -4.8 mmol/L; ABG HCO3 21 mmol/L (21-25); ABG Oxygen Saturation 93.4 % (94-97); ABG PCO2 37 mmHg (35-45); ABG PH 7.36 (7.35-7.45); ABG PO2 66 mmHg (83-108); ABG TCO2 22 mmol/L (19-24); Allen Test Performed? Yes
[2021-05-30] MEDS: DILTIAZEM 125 MG in SODIUM CHLORIDE 0.9% 100 ML IV SCH ×2 (05:51→13:10)
[2021-05-30 05:56] LABS: African American GFR (CKD) >90 (>60 ml/min/1.73 sqM); Anion Gap 9 mmol/L; Blood Urea Nitrogen 32 mg/dL (9-20); Calcium 6.8 mg/dL (8.4-10.2); Carbon Dioxide 18 mmol/L (22-30); Chloride 120 mmol/L (98-107); Glucose 153 mg/dL (74-99); Non-African American GFR(CKD) 81 (>60 ml/min/1.73 sqM); Phosphorus 2.6 mg/dL (2.5-4.5); Sodium 147 mmol/L (137-145)
--- NOTE | 2021-05-30 06:18 | XR ---
EXAMINATION TYPE: XR chest 1V portable DATE OF EXAM: 05/30/2021 CLINICAL HISTORY: Difficulty breathing progress study. TECHNIQUE: Single AP portable semiupright view of the chest is obtained. COMPARISON: Chest x-ray from one day earlier and older studies. FINDINGS: Stable endotracheal and orogastric tubes. Persistent low lung volumes with elevated right hemidiaphragm. Persistent bilateral multifocal increased opacities. Cardiac silhouette size is stable and within nor mal limits. Osseous structures are intact. IMPRESSION: Low lung volumes with elevated right hemidiaphragm and bilateral multifocal increased opa cities consistent with covid-19 infection are redemonstrated. No significant change from one day giovanny ier.
[2021-05-30] MEDS: ENOXAPARIN 40 MG/0.4 ML SYRINGE SQ SCH (08:18)
[2021-05-30] MEDS: PIPERACILLIN-TAZOBACTAM 3.375 GM in SODIUM CHLORIDE 0.9% 100 ML IVPB SCH ×3 (08:18→23:50)
[2021-05-30] MEDS: PANTOPRAZOLE 40 MG/10 ML VIAL IVP SCH ×2 (08:18→20:32)
[2021-05-30] MEDS: CHLORHEXIDINE GLUCONATE 15 ML CUP MUCOUS MEM SCH ×2 (08:18→20:32)
[2021-05-30] MEDS: 1: MVI, ADULT NO.4 WITH VIT K 10 ML, TRACE (CONC-1ML/DOSE) 1 ML, SODIUM PHOSPHATE 15 MMO IV SCH ×12 (08:20→09:17)
[2021-05-30] MEDS: HYDROmorphone 1 MG/ML 1 ML SYRINGE IVP PRN (08:54)
[2021-05-30] MEDS: IBUPROFEN 400 MG TAB PO PRN (09:16)
[2021-05-30 09:43] LABS: HCT 25.3 % (39.0-53.0); HGB 7.9 gm/dL (13.0-17.5); Hypochromasia Marked; MCH 28.6 pg (25.0-35.0); MCHC 31.3 g/dL (31.0-37.0); MCV 91.5 fL (80.0-100.0); Mean Platelet Volume 8.2; Platelet Count 326 k/uL (150-450); RBC 2.77 m/uL (4.30-5.90); RDW 15.8 % (11.5-15.5); WBC 5.2 k/uL (3.8-10.6)
[2021-05-30 10:05] LABS: Band Neutrophils % 3 %; Eosinophils # (M) 0.05 k/uL (0-0.7); Lymphocytes # (M) 0.52 k/uL (1.0-4.8); Metamyelocytes % 2 %; Neutrophils % (M) 85 %; Nucleated Red Blood Cells 0 /100 WBC (0-0); Total Cells Counted 200
[2021-05-30 11:31] LABS: Glucose,Whole Blood 152 mg/dL (75-99)
--- NOTE | 2021-05-30 11:38 | P.PN ---
Subjective Progress Note Date: 05/30/21 CHIEF COMPLAINT: Crohn's disease with abscess HISTORY OF PRESENT ILLNESS: Patient is postop day #2 status post ileocolectomy with washout of peritoneal abscess for Crohn's disease with abscess. Patient sh owing the ICU and intubated. Patient is having fevers. T-max this morning of 101.9. He is receiving Motrin for the fever. Chart reports that Tylenol causes him chest pain. Mildly tachycardic. Currently on Cardizem and amiodarone drip. Patient also has covid 19 pneumonia. WBC is 5.2 Hgb trending down from 11.4- 8.6 to 7.9. He is on TPN for nutrition support PHYSICAL EXAM: VITAL SIGNS: Reviewed. GENERAL: Well-developed in no acute distress. HEENT: No sclera icterus. Extraocular movements grossly intact. Moist buccal mucosa. Head is atraumatic, normocephalic. ABDOMEN: Soft. Nondistended. Incision dressing with areas of saturation of the distal aspect of the incision. ADRIAN drain with 35 mL of sickness output NEUROLOGIC: Intubated and sedated ASSESSMENT: 1. Crohn's disease with abscess status post ileocolectomy with washout of peritoneal abscess 2. Pneumoperitoneum 3. COVID-19 pneumonia PLAN: -Continue ICU management -Continue supportive care -Change incisional dressing -Continue to monitor fever -Continue Motrin as needed -Continue antibiotics -Continue IV fluids -Continue TPN for nutrition support -DVT prophylaxis [employer] Physician Panel [employer]ter note has been reviewed by physician. Signing provider agrees with the documented findings, assessment, and plan of care. Objective - Vital Signs Vital signs: Vital Signs Temp 100.3 F H 05/30/21 11:00 Pulse 93 05/30/21 11:00 Resp 28 H 05/30/21 11:00 BP 122/70 05/30/21 04:00 Pulse Ox 94 L 05/30/21 11:00 Intake & Output 05/29/21 05/30/21 05/30/21 18:59 06:59 18:59 Intake Total 2701.857 2370.294 534.172 Output Total 915 1425 360 Balance 1786.857 945.294 174.172 Intake: IV 1851.5 1188 316 Amino Acids 5 %/Dextrose 390 330 60 20 % 1,000 ml @ 30 mls/hr IV .Q24H [facility] Rx#: [id number] Amiodarone 450 mg In 16.5 Dextrose 5% in Water 250 ml @ 0.5 MG/MIN 16.667 mls/hr IV .Q15H [facility] Rx#: [id number] Piperacillin-Tazobactam 3 200 100 .375 gm In Sodium Chloride 0.9% 100 ml @ 25 mls/hr IVPB Q8HR [facility] Rx# :[id number] Sodium Chloride 0.9% 1, 1200 825 150 000 ml @ 75 mls/hr IV . [id number] [facility] Rx#:[id number] pressure bags 45 33 6 Intake, IV Titration 174.678 1664.294 218.172 Amount Amiodarone 450 mg In 223.893 Dextrose 5% in Water 250 ml @ 0.5 MG/MIN 16.667 mls/hr IV .Q15H [facility] Rx#: [id number] Diltiazem 125 mg In 121 238.333 106.333 Sodium Chloride 0.9% 100 ml @ 5 MG/HR 5 mls/hr IV .Q24H [facility] Rx#:[id number] Norepinephrine 4 mg In 269.337 286.968 11.839 Sodium Chloride 0.9% 250 ml @ 0.05 MCG/KG/MIN 25. 923 mls/hr IV .Q9H48M [facility] Rx#:[id number] metroNIDAZOLE-NS PMX 500 200 mg In Saline 1 100ml.bag @ 100 mls/hr IVPB Q6HR [facility] Rx#:[id number] propofoL 1,000 mg In 260.02 433.1 100 Empty Bag 1 bag @ Titrate IV .Q0M [facility] Rx#: [id number] Output: Drainage 35 Abdomen 35 Urine 915 1425 325 Other: Voiding Method Indwelling Catheter Indwelling Catheter Indwelling Catheter ABP, PAP, CO, CI - Last Documented Arterial Blood Pressure 92/47 - Labs CBC & Chem 7: 05/30/21 09:15 05/30/21 05:05 Labs: Abnormal Lab Results - Last 24 Hours (Table) 05/29/21 05/29/21 05/29/21 Range/Units 00:30 13:20 18:23 RBC (4.30-5.90) m/uL Hgb (13.0-17.5) gm/dL Hct (39.0-53.0) % RDW (11.5-15.5) % Lymphocytes # (Manual) (1.0-4.8) k/uL Metamyelocytes # (Man) (0) k/uL ABG pO2 (83-108) mmHg ABG O2 Saturation (94-97) % Sodium (137-145) mmol/L Chloride (98-107) mmol/L Carbon Dioxide (22-30) mmol/L BUN (9-20) mg/dL Glucose (74-99) mg/dL POC Glucose (mg/dL) 172 H 169 H (75-99) mg/dL Calcium (8.4-10.2) mg/dL Magnesium (1.6-2.3) mg/dL Triglycerides 326.00 H (0.00-149.00) mg/dL 05/29/21 05/30/21 05/30/21 Range/Units 23:18 05:05 06:00 RBC (4.30-5.90) m/uL Hgb (13.0-17.5) gm/dL Hct (39.0-53.0) % RDW (11.5-15.5) % Lymphocytes # (Manual) (1.0-4.8) k/uL Metamyelocytes # (Man) (0) k/uL ABG pO2 66 L (83-108) mmHg ABG O2 Saturation 93.4 L (94-97) % Sodium 147 H (137-145) mmol/L Chloride 120 H (98-107) mmol/L Carbon Dioxide 18 L (22-30) mmol/L BUN 32 H (9-20) mg/dL Glucose 153 H (74-99) mg/dL POC Glucose (mg/dL) 171 H (75-99) mg/dL Calcium 6.8 L (8.4-10.2) mg/dL Magnesium 3.0 H (1.6-2.3) mg/dL Triglycerides (0.00-149.00) mg/dL 05/30/21 Range/Units 09:15 RBC 2.77 L (4.30-5.90) m/uL Hgb 7.9 L (13.0-17.5) gm/dL Hct 25.3 L (39.0-53.0) % RDW 15.8 H (11.5-15.5) % Lymphocytes # (Manual) 0.52 L (1.0-4.8) k/uL Metamyelocytes # (Man) 0.10 H (0) k/uL ABG pO2 (83-108) mmHg ABG O2 Saturation (94-97) % Sodium (137-145) mmol/L Chloride (98-107) mmol/L Carbon Dioxide (22-30) mmol/L BUN (9-20) mg/dL Glucose (74-99) mg/dL POC Glucose (mg/dL) (75-99) mg/dL Calcium (8.4-10.2) mg/dL Magnesium (1.6-2.3) mg/dL Triglycerides (0.00-149.00) mg/dL Microbiology - Last 24 Hours (Table) 05/28/21 07:37 Gram Stain - Final Abdomen Wound Culture - Final Escherichia coli Keke albicans 05/25/21 22:33 Blood Culture - Preliminary Blood No Growth after 96 hours 05/25/21 21:27 Blood Culture - Preliminary Blood No Growth after 96 hours 05/29/21 18:50 Urine Culture - Preliminary Urine,Catheterized
[2021-05-30] MEDS: DEXAMETHASONE SOD PHOSPHATE 10 MG/ML 1 ML VIAL IVP SCH (11:40)
--- NOTE | 2021-05-30 11:49 | P.PN ---
Subjective Progress Note Date: 05/30/21 Principal diagnosis: Acute abdomen related to abscess formation and perforation with pneumoperitoneum, acute COVID-19 related pneumonia On 05/30/2021 patient seen in follow-up in the intensive care unit, today is postoperative day #3 status post right colectomy, resection of terminal ileum and end-to-end anastomosis for inflammatory bowel disease with abscess formation and perforation. Patient remains intubated, sedated on assist control mode of ventilation with a rate of 24, tidal volumes 500, FiO2 of 80% and PEEP of 10, today's blood gas shows pO2 66 pCO2 37, and pH of 7.37 this was done on 80% FiO2 and subsequently fio2 has been dropped down to 70%. Chest x-ray today shows low lung volumes with elevated right hemidiaphragm and bilateral multifocal increased opacities consistent with COVID-19 infection. Patient was tested again via rapid COVID-19 PCR test and was found to be positive on 05/27/2021. Current drips include 0.9 at 75 ML per hour, Diprivan is a 50 mics per kilo per minute, Cardizem drip is at 20 mg per hour, amiodarone drip 0.5 mg/m, and norepinephrine drip has been weaned off, patient is on TPN at 70 ML per hour, antibiotics including Zosyn and Flagyl. Abdominal wound cultures were positive for E. coli and Keke. Urine culture is been sent, and remains negative thus far, blood cultures have been negative. he has been afebrile overnight, with T-max of 101.9F. Today's blood work reviewed showing a white blood cell count of 5.2, hemoglobin of 7.9, sodium is 147, potassium is 4.0, chloride is 120, CO2 is 18, BUN is 32, and creatinine is 1.13. Urine output is in the order of 100-125 ML per hour. He is currently in sinus mechanism with a rate of 93 BPM. Abdominal incision is clean dry and intact, Bowel sounds are hypoactive. Objective - Vital Signs Vital signs: Vital Signs Temp 100.3 F H 05/30/21 11:00 Pulse 93 05/30/21 11:00 Resp 28 H 05/30/21 11:00 BP 122/70 05/30/21 04:00 Pulse Ox 94 L 05/30/21 11:00 Intake & Output 05/29/21 05/30/21 05/30/21 18:59 06:59 18:59 Intake Total 2701.857 2370.294 534.172 Output Total 915 1425 360 Balance 1786.857 945.294 174.172 Intake: IV 1851.5 1188 316 Amino Acids 5 %/Dextrose 390 330 60 20 % 1,000 ml @ 30 mls/hr IV .Q24H [facility] Rx#: [id number] Amiodarone 450 mg In 16.5 Dextrose 5% in Water 250 ml @ 0.5 MG/MIN 16.667 mls/hr IV .Q15H [facility] Rx#: [id number] Piperacillin-Tazobactam 3 200 100 .375 gm In Sodium Chloride 0.9% 100 ml @ 25 mls/hr IVPB Q8HR [facility] Rx# :[id number] Sodium Chloride 0.9% 1, 1200 825 150 000 ml @ 75 mls/hr IV . [id number] [facility] Rx#:[id number] pressure bags 45 33 6 Intake, IV Titration 922.361 6303.294 218.172 Amount Amiodarone 450 mg In 223.893 Dextrose 5% in Water 250 ml @ 0.5 MG/MIN 16.667 mls/hr IV .Q15H [facility] Rx#: [id number] Diltiazem 125 mg In 121 238.333 106.333 Sodium Chloride 0.9% 100 ml @ 5 MG/HR 5 mls/hr IV .Q24H [facility] Rx#:[id number] Norepinephrine 4 mg In 269.337 286.968 11.839 Sodium Chloride 0.9% 250 ml @ 0.05 MCG/KG/MIN 25. 923 mls/hr IV .Q9H48M [facility] Rx#:[id number] metroNIDAZOLE-NS PMX 500 200 mg In Saline 1 100ml.bag @ 100 mls/hr IVPB Q6HR [facility] Rx#:[id number] propofoL 1,000 mg In 260.02 433.1 100 Empty Bag 1 bag @ Titrate IV .Q0M [facility] Rx#: [id number] Output: Drainage 35 Abdomen 35 Urine 915 1425 325 Other: Voiding Method Indwelling Catheter Indwelling Catheter ABP, PAP, CO, CI - Last Documented Arterial Blood Pressure 92/47 - Exam GENERAL EXAM: Atraumatic, sedated, 41-year-old white male, on assist-control mode of ventilation with FiO2 of 80%, and PEEP of 10, comfortable in no apparent distress. HEAD: Normocephalic/atraumatic. EYES: Normal reaction of pupils, equal size. Conjunctiva pink, sclera white. NOSE: Clear with pink turbinates. THROAT: No erythema or exudates. NECK: No masses, no JVD, no thyroid enlargement, no adenopathy. CHEST: No chest wall deformity. Symmetrical expansion. LUNGS: Equal air entry with no crackles, wheeze, rhonchi or dullness. CVS: Regular rate and rhythm, normal S1 and S2, no gallops, no murmurs, no rubs ABDOMEN: Soft, nontender. No hepatosplenomegaly, normal bowel sounds, no guarding or rigidity. Abdominal incision is clean dry and intact, right lower quadrant ADRIAN drain with small amount of serosanguineous material, ADRIAN drain is compressed and draining. EXTREMITIES: No clubbing, no edema, no cyanosis, 2+ pulses and upper and lower extremities. MUSCULOSKELETAL: Muscle strength and tone normal. SPINE: No scoliosis or deformity SKIN: No rashes CENTRAL NERVOUS SYSTEM: Sedated, intubated No focal deficits, tone is normal in all 4 extremities. - Labs CBC & Chem 7: 05/30/21 09:15 05/30/21 05:05 Labs: Abnormal Lab Results - Last 24 Hours (Table) 05/29/21 05/29/21 05/29/21 Range/Units 00:30 13:20 18:23 RBC (4.30-5.90) m/uL Hgb (13.0-17.5) gm/dL Hct (39.0-53.0) % RDW (11.5-15.5) % Lymphocytes # (Manual) (1.0-4.8) k/uL Metamyelocytes # (Man) (0) k/uL ABG pO2 (83-108) mmHg ABG O2 Saturation (94-97) % Sodium (137-145) mmol/L Chloride (98-107) mmol/L Carbon Dioxide (22-30) mmol/L BUN (9-20) mg/dL Glucose (74-99) mg/dL POC Glucose (mg/dL) 172 H 169 H (75-99) mg/dL Calcium (8.4-10.2) mg/dL Magnesium (1.6-2.3) mg/dL Triglycerides 326.00 H (0.00-149.00) mg/dL 05/29/21 05/30/21 05/30/21 Range/Units 23:18 05:05 06:00 RBC (4.30-5.90) m/uL Hgb (13.0-17.5) gm/dL Hct (39.0-53.0) % RDW (11.5-15.5) % Lymphocytes # (Manual) (1.0-4.8) k/uL Metamyelocytes # (Man) (0) k/uL ABG pO2 66 L (83-108) mmHg ABG O2 Saturation 93.4 L (94-97) % Sodium 147 H (137-145) mmol/L Chloride 120 H (98-107) mmol/L Carbon Dioxide 18 L (22-30) mmol/L BUN 32 H (9-20) mg/dL Glucose 153 H (74-99) mg/dL POC Glucose (mg/dL) 171 H (75-99) mg/dL Calcium 6.8 L (8.4-10.2) mg/dL Magnesium 3.0 H (1.6-2.3) mg/dL Triglycerides (0.00-149.00) mg/dL 05/30/21 Range/Units 09:15 RBC 2.77 L (4.30-5.90) m/uL Hgb 7.9 L (13.0-17.5) gm/dL Hct 25.3 L (39.0-53.0) % RDW 15.8 H (11.5-15.5) % Lymphocytes # (Manual) 0.52 L (1.0-4.8) k/uL Metamyelocytes # (Man) 0.10 H (0) k/uL ABG pO2 (83-108) mmHg ABG O2 Saturation (94-97) % Sodium (137-145) mmol/L Chloride (98-107) mmol/L Carbon Dioxide (22-30) mmol/L BUN (9-20) mg/dL Glucose (74-99) mg/dL POC Glucose (mg/dL) (75-99) mg/dL Calcium (8.4-10.2) mg/dL Magnesium (1.6-2.3) mg/dL Triglycerides (0.00-149.00) mg/dL Microbiology - Last 24 Hours (Table) 05/28/21 07:37 Gram Stain - Final Abdomen Wound Culture - Final Escherichia coli Keke albicans 05/25/21 22:33 Blood Culture - Preliminary Blood No Growth after 96 hours 05/25/21 21:27 Blood Culture - Preliminary Blood No Growth after 96 hours 05/29/21 18:50 Urine Culture - Preliminary Urine,Catheterized Assessment and Plan Plan: Assessment: #1. Acute abdomen related to inflammatory bowel disease involving the terminal ileum with abscess formation and perforation with pneumoperitoneum, status post surgical resection of the terminal ileum of the colon, ileocolectomy and colectomy of the right colon, on 05/28/2021. #2. Acute hypoxic respiratory failure, related to acute abdominal sepsis, and acute COVID-19 related pneumonia #3. Atrial fibrillation with RVR, currently in sinus mechanism. Remains on Cardizem, amiodarone drips and metoprolol #4. Fever related to acute abdominal sepsis #5. Hyponatremia, improved, and patient now has hypernatremia related to free water deficit #6. Acute kidney injury renal function has improved #7. Acute lactic acidosis, improved, anion gap acidosis has resolved #8. Leukocytosis, improved #9. Anemia, possibly dilutional. Plan: Blood gases, chest x-ray, labs reviewed Patient will continue on assist-control mode of ventilation, dropped FiO2 down to 70% and keep weaning FiO2 to keep O2 sats at or above 92% Continue Zosyn and Flagyl for antibiotic coverage Hemodynamically patient is more stable, not requiring vasopressor support adequate urine output switch IV fluids to 0.9 at a rate of 150 ML per hour Continue TPN for nutritional support We will add Decadron Continue Lovenox for DVT prophylaxis Rate control medications and anticoagulation for atrial fibrillation per cardiology We'll continue to closely follow in the ICU I performed a history & physical examination of the patient and discussed their management with my nurse practitioner, Ирина Woods. I reviewed the nurse practitioner's note and agree with the documented findings and plan of care. Lung sounds are positive for dim breath sounds throughout the lung moran. The findings and the impression was discussed with the patient. I attest to the documentation by the nurse practitioner. Time with Patient: Greater than 30
[2021-05-30] MEDS: SODIUM CHLORIDE 0.45% 1,000 ML IV SCH ×2 (13:12→17:39)
[2021-05-30] MEDS: NOREPINEPHRINE 4 MG in SODIUM CHLORIDE 0.9% 250 ML IV SCH ×2 (13:20→23:50)
[2021-05-30] MEDS: AMIODARONE 450 MG in DEXTROSE 5% IN WATER 250 ML IV SCH ×2 (15:27)
[2021-05-30] MEDS ORDERED: ANIDULAFUNGIN 200 MG in SODIUM CHLORIDE 0.9% 200 ML IVPB ONE (15:30)
--- NOTE | 2021-05-30 16:03 | PN ---
PROGRESS NOTE DATE OF SERVICE: 05/30/2021 This 41-year-old gentleman who was admitted with abdominal pain with acute perforation and abscess had possible sepsis. Patient had exploratory laparotomy and ileocolectomy and washout also. The patient is mechanically ventilated and sedated. The patient also had acute COVID-19 infection. Chest x-ray showed elevated right hemidiaphragm as well as some infiltrates. The hemoglobin is 7.9. Sodium is 147 and glucose is 152. Wound culture is showing E coli as well as Keke albicans at this time. Past medical history reviewed. Review of systems could not be taken; the patient is mechanically ventilated and sedated. He is running some fever. CURRENT MEDICATIONS: Reviewed. They include TPN, amiodarone, dexamethasone, diltiazem, Flagyl, PHYSICAL EXAMINATION: Patient is mechanically ventilated and sedated. Pulse is 92, blood pressure 115/60, respiration 18. Pulse ox 94% on 70% FiO2. HEENT: Conjunctivae normal. NECK: No jugular venous distention. CARDIOVASCULAR: S1, S2 muffled. RESPIRATION: Breath sounds diminished at the bases. Scattered rhonchi. ABDOMEN: Soft. Status post surgery. LEGS: No edema. No swelling. NERVOUS SYSTEM:ntd LABS: WBC 5.2, hemoglobin 7.9. Other labs are noted. ASSESSMENT: 1. Acute abdomen with possible acute perforation abscess with possible sepsis, present on admission, status post exploratory laparotomy and ileocolectomy and washout with peritoneal abscess. 2. Acute hypoxic respiratory failure, on mechanical ventilation. 3. Acute peritonitis. 4. Atrial fibrillation with a fast ventricular rate. 5. Escherichia coli and Keke albicans from the wound. 6. Acute COVID-19 infection with possible acute bibasilar pneumonia. 7. Hyponatremia. 8. Elevated D-dimer without any evidence of acute pulmonary embolism, possibly secondary to sepsis. 9. Increased creatinine with acute renal failure, acute tubular necrosis. 10.Leukopenia. 11.Increased white count. 12.History of hernia repair. 13.History of nicotine dependence. 14.Obesity with body mass index of 44.6. 15.FULL CODE. RECOMMENDATIONS AND DISCUSSION: I recommend to continue current medications, continue with the monitoring, symptomatic treatment. Otherwise at this time I would recommend a baseline EKG and antifungal treatment. Continue with IV antibiotics. Cultures. Guarded prognosis because of multiple complex medical issues. Further recommendations to follow. MMODL / IJN: [id number] / LATISHA
[2021-05-30 17:33] LABS: Glucose,Whole Blood 166 mg/dL (75-99)
--- NOTE | 2021-05-30 20:09 | PN ---
PROGRESS NOTE Mr. Salcedo is a patient with atrial fibrillation, rapid rate. He was seen by Dr. Solorzano and initiated on high dose of Cardizem. With this combination, he seems to have had a decent rate control, but now he has converted to sinus rhythm. I am recommending that we reduce the Cardizem to 15 and eventually to 10. Patient has coronavirus infection. Currently he has multiple issues in the form of acute abdomen with abscess formation, perforation, pneumoperitoneum, from which he is recovering slowly. He also has a COVID-related pneumonia. However, from a cardiac standpoint he remains in sinus rhythm. Will continue current medications and decrease the dose of Cardizem to 15 mg/hour and then down to 10. Prognosis remains poor. We will continue to see him. MMIVONNEL / IJN: [id number] /
[2021-05-30 23:54] LABS: Glucose,Whole Blood 188 mg/dL (75-99)
[2021-05-31] MEDS: INSULIN ASPART (NovoLOG) 100 UNIT/ML VIAL SQ SCH ×6 (00:01→21:33)
[2021-05-31] MEDS: SODIUM CHLORIDE 0.45% 1,000 ML IV SCH ×4 (03:37→21:30)
[2021-05-31 05:11] LABS: HCT 26.1 % (39.0-53.0); HGB 7.9 gm/dL (13.0-17.5); Hypochromasia Marked; MCH 28.3 pg (25.0-35.0); MCHC 30.4 g/dL (31.0-37.0); Mean Platelet Volume 8.3; Platelet Count 355 k/uL (150-450); RBC 2.81 m/uL (4.30-5.90); WBC 8.2 k/uL (3.8-10.6)
[2021-05-31] MEDS: AMIODARONE 450 MG in DEXTROSE 5% IN WATER 250 ML IV SCH ×4 (05:15→21:29)
[2021-05-31 05:27] LABS: African American GFR (CKD) >90 (>60 ml/min/1.73 sqM); Anion Gap 11 mmol/L; Blood Urea Nitrogen 32 mg/dL (9-20); Calcium 6.7 mg/dL (8.4-10.2); Carbon Dioxide 16 mmol/L (22-30); Chloride 119 mmol/L (98-107); Glucose 169 mg/dL (74-99); Magnesium 2.8 mg/dL (1.6-2.3); Non-African American GFR(CKD) >90 (>60 ml/min/1.73 sqM); Phosphorus 3.8 mg/dL (2.5-4.5); Potassium 3.9 mmol/L (3.5-5.1); Sodium 146 mmol/L (137-145)
[2021-05-31 05:54] LABS: ABG HCO3 20 mmol/L (21-25); ABG Oxygen Saturation 87.2 % (94-97); ABG PCO2 40 mmHg (35-45); ABG PH 7.31 (7.35-7.45); ABG TCO2 21 mmol/L (19-24); Allen Test Performed? Yes
[2021-05-31 06:09] LABS: ABG PO2 55 mmHg (83-108)
[2021-05-31 06:17] LABS: Glucose,Whole Blood 171 mg/dL (75-99)
[2021-05-31] MEDS: metroNIDAZOLE-NS PMX 500 MG in SALINE 1 100ML.BAG IVPB SCH ×3 (06:43→17:25)
--- NOTE | 2021-05-31 08:04 | P.CONS ---
History of Present Illness - Reason for Consult Consult date: 05/30/21 abdominal cultures Requesting physician: Marco A Marsh - Chief Complaint abd pain x few days - History of Present Illness History of present illness : Patient is a 41-year-old male presenting to the ER about 6 days ago on May 25, 2021 with a 3-day history of abdominal pain and this patient also gives a history of a positive Covid test 8 days before presentation the hospital patient on presentation to the hospital did have a pneumoperitoneum with concern for possible perforated appendicitis versus bowel perforation and evidence of multifocal pneumonia patient has been treated by general surgery services as well as medical team patient did have a CT of the chest asymmetric elevation of the right hemidiaphragm multifocal pneumonia and evidence of pneumomediastinum subsequently has been evaluated by cardiology and pulmonary services patient did have repeat CT of abdominal pelvis on May 28, 2021 the pneumoperitoneum is increased slightly, with multiple dilated small bowel loops suggestive of mechanical small bowel obstruction or severe ileus significantly airspace consolidation atelectasis both lower lobes patient was taken to the OR May 28, 2021 and is status post exploratory laparotomy patient was noticed to have a possible Crohn's disease with an abscess status post ileocolectomy wash out of peritoneal abscess patient has been running a fever since May 28, 2021 and the patient has been treated with Zosyn since May 26, 2021 abdominal cultures came back positive for E. coli Keke albicans infectious disease was consulted most information has been obtained from review the chart and talking nursing staff and patient is currently intubated on the vent, patient care not requiring any pressor support and no significant purulent secretions in the ET abdominal incision looks clean and no purulent drainage, Review of system: Positive point has been mentioned in HPI complete review could not be obtained because of underlying mental status. Past medical history : Reviewed, documented below Past surgical history : Reviewed, documented below Social history: Reviewed, documented below Medications: Reviewed, as documented below EXAMINATION: Vital sigans= Reviewed and documented below GENERAL DESCRIPTION: Middle-aged intubated on the vent. No tachypnea or accessory muscle of respiration use. HEENT: Shows Pallor , no scleral icterus. Oral mucous membrane is dry. NECK: Trachea central, no thyromegaly. LUNGS: Unlabored breathing. Decrease intensity of breath sounds. No wheeze or crackle. HEART: S1, S2, regular rate and rhythm. ABDOMEN: Soft, midline incision looks clean did have a 3 small areas of open wo und with no purulent drainage EXTREMITIES: No edema of feet. SKIN: No rash, no masses palpable. NEUROLOGICAL: The patient sedated on the vent LABS AND RADIOLOGY: Reviewed results see below Assessment : 1-patient with secondary peritonitis in this patient presented to hospital about 6 days ago with abdominal pain and there was evidence of pneumoperitoneum subsequently taken to the OR on May 28 and is status post ileocolectomy with suspected Crohn's disease with an abscess with abdominal cult ures are showing E. coli but sensitive pathogen and Keke albicans, patient also developed A. fib with RVR and is on amiodarone that will contraindicate the use of Diflucan Plan: 1-patient will be treated with Zosyn and Eraxis to cover for both pathogens 2-pack the abdominal wound with dry Aquacel dressing change every 48 hour 3-gentle IV fluid We will follow on clinical condition and cultures to further adjust medication if needed Thank you for this consultation we will follow the patient along with you Past Medical History Past Medical History: No Reported History History of Any Multi-Drug Resistant Organisms: None Reported Past Surgical History: Hernia Repair Past Anesthesia/Blood Transfusion Reactions: No Reported Reaction Past Psychological History: No Psychological Hx Reported Smoking Status: Former smoker Past Alcohol Use History: Occasional Past Drug Use History: None Reported Medications and Allergies Home Medications Medication Instructions Recorded Confirmed Type Ibuprofen [Motrin] 800 mg PO Q8H PRN 05/25/21 05/25/21 History Allergies Allergy/AdvReac Type Severity Reaction Status Date / Time acetaminophen [From Tylenol] Allergy Chest Pain Verified 05/25/21 21:37 Physical Exam Vitals: Vital Signs Temp Pulse Resp BP Pulse Ox 05/30/21 16:00 100.5 F H 92 31 H 94 L 05/30/21 15:00 101.8 F H 101 H 30 H 115/62 90 L 05/30/21 14:00 92 28 H 115/62 95 05/30/21 13:00 101.4 F H 93 28 H 95 05/30/21 12:00 96 30 H 96 05/30/21 11:00 100.3 F H 93 28 H 94 L 05/30/21 10:00 101.3 F H 96 28 H 93 L 05/30/21 09:00 116 H 31 H 92 L 05/30/21 08:00 101.9 F H 114 H 31 H 92 L 05/30/21 04:00 107 H 33 H 122/70 95 05/30/21 03:00 105 H 47 H 122/70 96 05/30/21 02:00 97 18 122/70 97 05/30/21 01:00 102 H 21 122/70 96 05/30/21 00:00 100 30 H 108/65 96 05/29/21 23:00 112 H 15 108/65 97 05/29/21 22:00 149 H 25 H 108/65 95 05/29/21 21:51 124 H 19 108/65 94 L 05/29/21 21:00 122 H 108/65 95 05/29/21 20:00 98.3 F 109 H 110/73 98 05/29/21 19:00 112 H 30 H 97 05/29/21 18:00 116 H 27 H 97 Intake and Output 05/30/21 05/30/21 05/30/21 06:59 14:59 22:59 Intake Total 3016.605 6008.839 1502 Output Total 1050 360 525 Balance 304.520 642.839 977 Intake: IV 414 048 6658 Amino Acids 5 %/Dextrose 240 60 20 % 1,000 ml @ 30 mls/hr IV .Q24H [facility] Rx#: [id number] Amiodarone 450 mg In 116 Dextrose 5% in Water 250 ml @ 0.5 MG/MIN 16.667 mls/hr IV .Q15H [facility] Rx#: [id number] Anidulafungin 200 mg In 200 Sodium Chloride 0.9% 200 ml @ 84 mls/hr IVPB ONCE [facility] Rx#:[id number] Mvi, Adult No.4 with Vit 490 K 10 ml Trace (Conc-1Ml/ Dose) 1 ml Sodium Phosphate 15 mmol Potassium Chloride 20 meq Calcium Gluconate 1 gm In Amino Acids 5 %/ Dextrose 20 % 1,000 ml @ 70 mls/hr IV .BY DURATION [facility] Rx#:[id number] Piperacillin-Tazobactam 3 100 .375 gm In Sodium Chloride 0.9% 100 ml @ 25 mls/hr IVPB Q8HR [facility] Rx# :[id number] Sodium Chloride 0.45% 1, 300 000 ml @ 150 mls/hr IV . Q6H40M [facility] Rx#:[id number] Sodium Chloride 0.9% 1, 600 150 375 000 ml @ 75 mls/hr IV . [id number] [facility] Rx#:[id number] pressure bags 24 6 21 Intake, IV Titration 490.520 686.839 Amount Amiodarone 450 mg In 250 Dextrose 5% in Water 250 ml @ 0.5 MG/MIN 16.667 mls/hr IV .Q15H [facility] Rx#: [id number] Diltiazem 125 mg In 125 125.000 Sodium Chloride 0.9% 100 ml @ 5 MG/HR 5 mls/hr IV .Q24H [facility] Rx#:[id number] Norepinephrine 4 mg In 128.320 11.839 Sodium Chloride 0.9% 250 ml @ 0.05 MCG/KG/MIN 25. 923 mls/hr IV .Q9H48M [facility] Rx#:[id number] propofoL 1,000 mg In 237.2 300 Empty Bag 1 bag @ Titrate IV .Q0M [facility] Rx#: [id number] Output: Drainage 35 Abdomen 35 Urine 1050 325 525 Other: Voiding Method Indwelling Catheter Indwelling Catheter Indwelling Catheter ABP, PAP, CO, CI - Last 8 Hours Arterial Blood Pressure 106/56 Arterial Blood Pressure 142/66 Arterial Blood Pressure 95/55 Arterial Blood Pressure 113/54 Arterial Blood Pressure 104/52 Arterial Blood Pressure 92/47 Arterial Blood Pressure 95/51 Results CBC & Chem 7: 05/31/21 04:20 05/31/21 04:20 Labs: Abnormal Lab Results - Last 24 Hours (Table) 05/29/21 05/29/21 05/30/21 Range/Units 18:23 23:18 05:05 RBC (4.30-5.90) m/uL Hgb (13.0-17.5) gm/dL Hct (39.0-53.0) % RDW (11.5-15.5) % Lymphocytes # (Manual) (1.0-4.8) k/uL Metamyelocytes # (Man) (0) k/uL ABG pO2 (83-108) mmHg ABG O2 Saturation (94-97) % Sodium 147 H (137-145) mmol/L Chloride 120 H (98-107) mmol/L Carbon Dioxide 18 L (22-30) mmol/L BUN 32 H (9-20) mg/dL Glucose 153 H (74-99) mg/dL POC Glucose (mg/dL) 169 H 171 H (75-99) mg/dL Calcium 6.8 L (8.4-10.2) mg/dL Magnesium 3.0 H (1.6-2.3) mg/dL 05/30/21 05/30/21 05/30/21 Range/Units 06:00 09:15 11:29 RBC 2.77 L (4.30-5.90) m/uL Hgb 7.9 L (13.0-17.5) gm/dL Hct 25.3 L (39.0-53.0) % RDW 15.8 H (11.5-15.5) % Lymphocytes # (Manual) 0.52 L (1.0-4.8) k/uL Metamyelocytes # (Man) 0.10 H (0) k/uL ABG pO2 66 L (83-108) mmHg ABG O2 Saturation 93.4 L (94-97) % Sodium (137-145) mmol/L Chloride (98-107) mmol/L Carbon Dioxide (22-30) mmol/L BUN (9-20) mg/dL Glucose (74-99) mg/dL POC Glucose (mg/dL) 152 H (75-99) mg/dL Calcium (8.4-10.2) mg/dL Magnesium (1.6-2.3) mg/dL Microbiology - Last 24 Hours (Table) 05/29/21 21:34 Sputum Culture - Preliminary Sputum 05/28/21 07:37 Gram Stain - Final Abdomen Wound Culture - Final Escherichia coli Keke albicans 05/25/21 22:33 Blood Culture - Preliminary Blood No Growth after 96 hours 05/25/21 21:27 Blood Culture - Preliminary Blood No Growth after 96 hours 05/29/21 18:50 Urine Culture - Preliminary Urine,Catheterized
[2021-05-31] MEDS: PIPERACILLIN-TAZOBACTAM 3.375 GM in SODIUM CHLORIDE 0.9% 100 ML IVPB SCH ×2 (08:09→16:54)
[2021-05-31] MEDS: DEXAMETHASONE SOD PHOSPHATE 10 MG/ML 1 ML VIAL IVP SCH (08:18)
[2021-05-31] MEDS: PANTOPRAZOLE 40 MG/10 ML VIAL IVP SCH ×2 (08:18→21:34)
[2021-05-31] MEDS: ENOXAPARIN 40 MG/0.4 ML SYRINGE SQ SCH (08:20)
[2021-05-31] MEDS: CHLORHEXIDINE GLUCONATE 15 ML CUP MUCOUS MEM SCH ×2 (08:21→21:34)
[2021-05-31] MEDS: HYDROmorphone 0.5 MG/0.5 ML SYRINGE IVP PRN ×3 (08:26→16:53)
[2021-05-31 08:38] LABS: Glucose,Whole Blood 155 mg/dL (75-99)
[2021-05-31 08:51] LABS: ALT 22 U/L (4-49); AST 38 U/L (17-59); Alkaline Phosphatase 59 U/L (38-126); Total Bilirubin 2.2 mg/dL (0.2-1.3)
--- NOTE | 2021-05-31 11:25 | XR ---
EXAMINATION TYPE: XR chest 1V portable DATE OF EXAM: 05/31/2021 COMPARISON: 05/30/2021 INDICATION: Tube placement TECHNIQUE: Single frontal view of the chest is obtained. FINDINGS: The heart size is normal. The pulmonary vasculature is normal. Mild left perihilar infiltrate may be present. There is elevation of right diaphragm. Moderate effusi on may be present. Subpulmonic effusion could be considered. Endotracheal tube tip is above the jossie. Nasogastric tube transverses the thorax. Left central veno us catheter tip is in the superior vena cava region. IMPRESSION: 1. Mild left perihilar infiltrate. 2. Subpulmonic effusion and/or elevated right diaphragm. 3. Lines and catheters discussed above.
[2021-05-31 11:28] LABS: Glucose,Whole Blood 150 mg/dL (75-99)
--- NOTE | 2021-05-31 11:47 | P.PN ---
Subjective Progress Note Date: 05/31/21 Principal diagnosis: Acute abdomen related to abscess formation and perforation with pneumoperitoneum, acute COVID-19 related pneumonia On 05/30/2021 patient seen in follow-up in the intensive care unit, today is postoperative day #3 status post right colectomy, resection of terminal ileum and end-to-end anastomosis for inflammatory bowel disease with abscess formation and perforation. Patient remains intubated, sedated on assist control mode of ventilation with a rate of 24, tidal volumes 500, FiO2 of 80% and PEEP of 10, today's blood gas shows pO2 66 pCO2 37, and pH of 7.37 this was done on 80% FiO2 and subsequently fio2 has been dropped down to 70%. Chest x-ray today shows low lung volumes with elevated right hemidiaphragm and bilateral multifocal increased opacities consistent with COVID-19 infection. Patient was tested again via rapid COVID-19 PCR test and was found to be positive on 05/27/2021. Current drips include 0.9 at 75 ML per hour, Diprivan is a 50 mics per kilo per minute, Cardizem drip is at 20 mg per hour, amiodarone drip 0.5 mg/m, and norepinephrine drip has been weaned off, patient is on TPN at 70 ML per hour, antibiotics including Zosyn and Flagyl. Abdominal wound cultures were positive for E. coli and Keke. Urine culture is been sent, and remains negative thus far, blood cultures have been negative. he has been afebrile overnight, with T-max of 101.9F. Today's blood work reviewed showing a white blood cell count of 5.2, hemoglobin of 7.9, sodium is 147, potassium is 4.0, chloride is 120, CO2 is 18, BUN is 32, and creatinine is 1.13. Urine output is in the order of 100-125 ML per hour. He is currently in sinus mechanism with a rate of 93 BPM. Abdominal incision is clean dry and intact, Bowel sounds are hypoactive. On 05/31/2021 patient seen in follow-up in intensive care unit. Today's postoperative day #4, status post right colectomy, resection of terminal ileum and end-to-end anastomosis for inflammatory bowel disease with abscess formation and perforation. He remains intubated, he is on volume assist control mode of ventilation, with a rate of 24, tidal volume is 500, FiO2 of 70% and PEEP of 10, this morning's blood gas shows pO2 of 54, pCO2 of 39, and pH of 7.31. Today's chest x-ray showed low lung volumes, elevated right hemidiaphragm and bilateral multifocal increased opacities consistent with COVID-19 infection, no significant change from one day earlier. Patient remains on 0.45 at a rate of 150 ML per hour, TPN is a 70 ML per hour, Diprivan is a 75 mics per kilo per minute, and amiodarone drip is at 0.5 mg/m. Today's labs have been reviewed, white blood cell count is 8.2, hemoglobin is 7.9, sodium is improving and is down to 146, chloride is 119, CO2 is 16, B1 is 32, creatinine is 1.01. Abdominal wound cultures were positive for E. coli and Keke and anaerobic gram-negative bacilli. Urine cultures have been negative, sputum Gram stain showed few PMNs, few budding his, rare gram-positive cocci. Not requiring any vasopressor support, urine output is in the order of 70-150 ML per hour. Heart rate is controlled. Remains in sinus mechanism. Remains on Eraxis, Flagyl, and Zosyn. He is on Protonix for GI prophylaxis, and Lovenox 40 mg daily for DVT prophylaxis. Abdominal incisions clean dry and intact, bowel sounds are hypoactive. Objective - Vital Signs Vital signs: Vital Signs Temp 98.9 F 05/31/21 08:00 Pulse 77 05/31/21 10:00 Resp 26 H 05/31/21 10:00 BP 115/62 05/30/21 15:00 Pulse Ox 93 L 05/31/21 10:00 Intake & Output 05/30/21 05/31/21 05/31/21 18:59 06:59 18:59 Intake Total 4119.889 3412.372 1099.980 Output Total 1410 1105 375 Balance 2709.889 2307.372 724.980 Weight 146.4 kg Intake: IV 2972 6801 889 Amino Acids 5 %/Dextrose 60 20 % 1,000 ml @ 30 mls/hr IV .Q24H [facility] Rx#: [id number] Amiodarone 450 mg In 180 Dextrose 5% in Water 250 ml @ 0.5 MG/MIN 16.667 mls/hr IV .Q15H [facility] Rx#: [id number] Anidulafungin 200 mg In 200 Sodium Chloride 0.9% 200 ml @ 84 mls/hr IVPB ONCE ONE Rx#:[id number] Mvi, Adult No.4 with Vit 770 770 280 K 10 ml Trace (Conc-1Ml/ Dose) 1 ml Sodium Phosphate 15 mmol Potassium Chloride 20 meq Calcium Gluconate 1 gm In Amino Acids 5 %/ Dextrose 20 % 1,000 ml @ 70 mls/hr IV .BY DURATION [facility] Rx#:[id number] Piperacillin-Tazobactam 3 200 100 .375 gm In Sodium Chloride 0.9% 100 ml @ 25 mls/hr IVPB Q8HR [facility] Rx# :[id number] Sodium Chloride 0.45% 1, 900 1650 600 000 ml @ 150 mls/hr IV . Q6H40M [facility] Rx#:[id number] Sodium Chloride 0.9% 1, 825 000 ml @ 75 mls/hr IV . [id number] [facility] Rx#:[id number] metroNIDAZOLE-NS PMX 500 100 100 mg In Saline 1 100ml.bag @ 100 mls/hr IVPB Q6HR [facility] Rx#:[id number] pressure bags 39 51 9 Intake, IV Titration 845.889 741.372 210.980 Amount Amiodarone 450 mg In 250 230.005 Dextrose 5% in Water 250 ml @ 0.5 MG/MIN 16.667 mls/hr IV .Q15H [facility] Rx#: [id number] Diltiazem 125 mg In 190.250 48.367 Sodium Chloride 0.9% 100 ml @ 5 MG/HR 5 mls/hr IV .Q24H [facility] Rx#:[id number] Norepinephrine 4 mg In 11.839 Sodium Chloride 0.9% 250 ml @ 0.05 MCG/KG/MIN 25. 923 mls/hr IV .Q9H48M [facility] Rx#:[id number] propofoL 1,000 mg In 393.8 463.0 210.980 Empty Bag 1 bag @ Titrate IV .Q0M [facility] Rx#: [id number] Output: Gastric Drainage 300 Drainage 35 50 Abdomen 35 50 Urine 1075 1055 375 Other: Voiding Method Indwelling Catheter Indwelling Catheter Indwelling Catheter ABP, PAP, CO, CI - Last Documented Arterial Blood Pressure 95/53 - Exam GENERAL EXAM: Atraumatic, sedated, 41-year-old white male, on volume assist- control mode of ventilation with FiO2 of 70%, and PEEP of 10, comfortable in no apparent distress. HEAD: Normocephalic/atraumatic. EYES: Normal reaction of pupils, equal size. Conjunctiva pink, sclera white. NOSE: Clear with pink turbinates. THROAT: No erythema or exudates. NECK: No masses, no JVD, no thyroid enlargement, no adenopathy. CHEST: No chest wall deformity. Symmetrical expansion. LUNGS: Equal air entry with no crackles, wheeze, rhonchi or dullness. CVS: Regular rate and rhythm, normal S1 and S2, no gallops, no murmurs, no rubs ABDOMEN: Soft, nontender. No hepatosplenomegaly, normal bowel sounds, no guarding or rigidity. Abdominal incision is clean dry and intact, right lower quadrant ADRIAN drain with small amount of serosanguineous material, ADRIAN drain is compressed and draining. EXTREMITIES: No clubbing, no edema, no cyanosis, 2+ pulses and upper and lower extremities. MUSCULOSKELETAL: Muscle strength and tone normal. SPINE: No scoliosis or deformity SKIN: No rashes CENTRAL NERVOUS SYSTEM: Sedated, intubated No focal deficits, tone is normal in all 4 extremities. - Labs CBC & Chem 7: 05/31/21 04:20 05/31/21 04:20 Labs: Abnormal Lab Results - Last 24 Hours (Table) 05/30/21 05/30/21 05/30/21 Range/Units 11:29 17:31 23:52 RBC (4.30-5.90) m/uL Hgb (13.0-17.5) gm/dL Hct (39.0-53.0) % MCHC (31.0-37.0) g/dL RDW (11.5-15.5) % ABG pH (7.35-7.45) ABG pO2 (83-108) mmHg ABG HCO3 (21-25) mmol/L ABG O2 Saturation (94-97) % Sodium (137-145) mmol/L Chloride (98-107) mmol/L Carbon Dioxide (22-30) mmol/L BUN (9-20) mg/dL Glucose (74-99) mg/dL POC Glucose (mg/dL) 152 H 166 H 188 H (75-99) mg/dL Calcium (8.4-10.2) mg/dL Magnesium (1.6-2.3) mg/dL Total Bilirubin (0.2-1.3) mg/dL Total Protein (6.3-8.2) g/dL Albumin (3.5-5.0) g/dL 05/31/21 05/31/21 05/31/21 Range/Units 04:20 04:20 06:00 RBC 2.81 L (4.30-5.90) m/uL Hgb 7.9 L (13.0-17.5) gm/dL Hct 26.1 L (39.0-53.0) % MCHC 30.4 L (31.0-37.0) g/dL RDW 16.0 H (11.5-15.5) % ABG pH 7.31 L (7.35-7.45) ABG pO2 55 L* (83-108) mmHg ABG HCO3 20 L (21-25) mmol/L ABG O2 Saturation 87.2 L (94-97) % Sodium 146 H (137-145) mmol/L Chloride 119 H (98-107) mmol/L Carbon Dioxide 16 L (22-30) mmol/L BUN 32 H (9-20) mg/dL Glucose 169 H (74-99) mg/dL POC Glucose (mg/dL) (75-99) mg/dL Calcium 6.7 L (8.4-10.2) mg/dL Magnesium 2.8 H (1.6-2.3) mg/dL Total Bilirubin 2.2 H (0.2-1.3) mg/dL Total Protein 5.0 L (6.3-8.2) g/dL Albumin 2.0 L (3.5-5.0) g/dL 05/31/21 05/31/21 Range/Units 06:15 08:36 RBC (4.30-5.90) m/uL Hgb (13.0-17.5) gm/dL Hct (39.0-53.0) % MCHC (31.0-37.0) g/dL RDW (11.5-15.5) % ABG pH (7.35-7.45) ABG pO2 (83-108) mmHg ABG HCO3 (21-25) mmol/L ABG O2 Saturation (94-97) % Sodium (137-145) mmol/L Chloride (98-107) mmol/L Carbon Dioxide (22-30) mmol/L BUN (9-20) mg/dL Glucose (74-99) mg/dL POC Glucose (mg/dL) 171 H 155 H (75-99) mg/dL Calcium (8.4-10.2) mg/dL Magnesium (1.6-2.3) mg/dL Total Bilirubin (0.2-1.3) mg/dL Total Protein (6.3-8.2) g/dL Albumin (3.5-5.0) g/dL Microbiology - Last 24 Hours (Table) 05/28/21 07:37 Anaerobic Culture - Final Abdomen Anaerobic Gm Negative Bacilli 05/25/21 22:33 Blood Culture - Preliminary Blood No Growth after 120 hours 05/25/21 21:27 Blood Culture - Preliminary Blood No Growth after 120 hours 05/29/21 21:34 Gram Stain - Preliminary Sputum Sputum Culture - Preliminary 05/29/21 18:50 Urine Culture - Final Urine,Catheterized 05/28/21 07:37 Gram Stain - Final Abdomen Wound Culture - Final Escherichia coli Keke albicans Assessment and Plan Plan: Assessment: #1. Acute abdomen related to inflammatory bowel disease involving the terminal ileum with abscess formation and perforation with pneumoperitoneum, status post surgical resection of the terminal ileum of the colon, ileocolectomy and colectomy of the right colon, on 05/28/2021. #2. Acute hypoxic respiratory failure, related to acute abdominal sepsis, and acute COVID-19 related pneumonia, slightly improved, FiO2 is currently down to 70%. There is a possibility of right hemidiaphragm elevation, possible paralysis #3. Atrial fibrillation with RVR, currently in sinus mechanism. Remains on IV amiodarone, Cardizem has been discontinued #4. Fever related to acute abdominal sepsis, improved #5. Hyponatremia, improved, and patient now has hypernatremia related to free water deficit, patient remains on 0.45 at a rate of 150 ML per hour #6. Acute kidney injury renal function has improved #7. Acute lactic acidosis, improved, anion gap acidosis has resolved #8. Leukocytosis, improved #9. Anemia, possibly dilutional. Plan: Today's blood gases, chest x-ray, labs reviewed Patient will continue on assist-control mode of ventilation, FiO2 remains at 70, and PEEP will be increased to 15 Wean FiO2 to Maintain O2 saturations at or above 90% Continue Decadron Continue Zosyn and Flagyl for antibiotic coverage Hemodynamically patient is more stable, not requiring vasopressor support a dequate urine output Continue IV 0.45 at a rate of 150 ML per hour Continue TPN for nutritional support Continue Lovenox for DVT prophylaxis I performed a history & physical examination of the patient and discussed their management with my nurse practitioner, Ирина Woods. I reviewed the nurse practitioner's note and agree with the documented findings and plan of care. Lung sounds are positive for dim breath sounds throughout the lung moran. The findings and the impression was discussed with the patient. I attest to the documentation by the nurse practitioner. Time with Patient: Greater than 30
--- NOTE | 2021-05-31 13:04 | PN ---
PROGRESS NOTE Mr. Salcedo is in sinus rhythm, maintaining sinus rhythm. Yesterday we have decreased and stopped his Cardizem. He is still on IV amiodarone at 0.5 mg. He has had a laparotomy with bowel surgery. Recovering slowly. Vital signs stable. S1-S2 heard normally. Lungs reveal diminished air entry. Abdomen is soft. Lower extremities reveal diminished pulses. Central nervous system assessment was not performed. Plan is to continue IV amiodarone for now. Prognosis remains guarded. MMODL / IJN: [id number] /
--- NOTE | 2021-05-31 15:09 | P.PN ---
Subjective Progress Note Date: 05/31/21 CHIEF COMPLAINT: Crohn's disease with abscess HISTORY OF PRESENT ILLNESS: Patient is postop day #3 status post ileocolectomy with washout of peritoneal abscess for Crohn's disease with abscess. Patient is in the ICU and intubated. Patient's fevers have improved. Antibiotics have been adjusted by medicine service. Afebrile. Pulmonary service increasing PEEP to 15. Patient has converted from atrial fibrillation to normal sinus rhythm. WBC 8.2 hemoglobin 7.9 platelets 355 sodium 146 potassium 3.9 creatinine 1.01 CO2 16 Patient seen and examined with Dr. steen PHYSICAL EXAM: VITAL SIGNS: Reviewed. GENERAL: Well-developed in no acute distress. HEENT: No sclera icterus. Extraocular movements grossly intact. Moist buccal mucosa. Head is atraumatic, normocephalic. ABDOMEN: Soft. Nondistended. Incisional dressing clean dry and intact ADRIAN drain with 50 mL of serous output NEUROLOGIC: Intubated and sedated ASSESSMENT: 1. Crohn's disease with abscess status post ileocolectomy with washout of peritoneal abscess 2. Pneumoperitoneum 3. COVID-19 pneumonia PLAN: -Continue ICU management -Continue supportive care -Continue local wound care -Continue antibiotics -Continue IV fluids -Continue TPN for nutrition support -DVT prophylaxis Lovenox Physician [employer] note has been reviewed by physician. Signing provider agrees with the documented findings, assessment, and plan of care. Objective - Vital Signs Vital signs: Vital Signs Temp 98.9 F 05/31/21 08:00 Pulse 80 05/31/21 14:00 Resp 24 05/31/21 14:00 BP 115/62 05/30/21 15:00 Pulse Ox 94 L 05/31/21 14:00 Intake & Output 05/30/21 05/31/21 05/31/21 18:59 06:59 18:59 Intake Total 4119.889 3412.372 1688.980 Output Total 1410 1105 665 Balance 2709.889 2307.372 1023.980 Weight 146.4 kg 146.4 kg Intake: IV 9824 7101 6978 Amino Acids 5 %/Dextrose 60 20 % 1,000 ml @ 30 mls/hr IV .Q24H [facility] Rx#: [id number] Amiodarone 450 mg In 180 Dextrose 5% in Water 250 ml @ 0.5 MG/MIN 16.667 mls/hr IV .Q15H [facility] Rx#: [id number] Anidulafungin 200 mg In 200 Sodium Chloride 0.9% 200 ml @ 84 mls/hr IVPB ONCE ONE Rx#:[id number] Mvi, Adult No.4 with Vit 770 770 410 K 10 ml Trace (Conc-1Ml/ Dose) 1 ml Sodium Phosphate 15 mmol Potassium Chloride 20 meq Calcium Gluconate 1 gm In Amino Acids 5 %/ Dextrose 20 % 1,000 ml @ 70 mls/hr IV .BY DURATION [facility] Rx#:[id number] Piperacillin-Tazobactam 3 200 100 .375 gm In Sodium Chloride 0.9% 100 ml @ 25 mls/hr IVPB Q8HR [facility] Rx# :[id number] Sodium Chloride 0.45% 1, 900 1650 1050 000 ml @ 150 mls/hr IV . Q6H40M [facility] Rx#:[id number] Sodium Chloride 0.9% 1, 825 000 ml @ 75 mls/hr IV . [id number] [facility] Rx#:[id number] metroNIDAZOLE-NS PMX 500 100 100 mg In Saline 1 100ml.bag @ 100 mls/hr IVPB Q6HR [facility] Rx#:[id number] pressure bags 39 51 18 Intake, IV Titration 845.889 741.372 210.980 Amount Amiodarone 450 mg In 250 230.005 Dextrose 5% in Water 250 ml @ 0.5 MG/MIN 16.667 mls/hr IV .Q15H [facility] Rx#: [id number] Diltiazem 125 mg In 190.250 48.367 Sodium Chloride 0.9% 100 ml @ 5 MG/HR 5 mls/hr IV .Q24H [facility] Rx#:[id number] Norepinephrine 4 mg In 11.839 Sodium Chloride 0.9% 250 ml @ 0.05 MCG/KG/MIN 25. 923 mls/hr IV .Q9H48M [facility] Rx#:[id number] propofoL 1,000 mg In 393.8 463.0 210.980 Empty Bag 1 bag @ Titrate IV .Q0M [facility] Rx#: [id number] Output: Gastric Drainage 300 Drainage 35 50 Abdomen 35 50 Urine 1075 1055 665 Other: Voiding Method Indwelling Catheter Indwelling Catheter Indwelling Catheter ABP, PAP, CO, CI - Last Documented Arterial Blood Pressure 132/66 - Labs CBC & Chem 7: 05/31/21 04:20 05/31/21 04:20 Labs: Abnormal Lab Results - Last 24 Hours (Table) 05/30/21 05/30/21 05/31/21 Range/Units 17:31 23:52 04:20 RBC (4.30-5.90) m/uL Hgb (13.0-17.5) gm/dL Hct (39.0-53.0) % MCHC (31.0-37.0) g/dL RDW (11.5-15.5) % ABG pH (7.35-7.45) ABG pO2 (83-108) mmHg ABG HCO3 (21-25) mmol/L ABG O2 Saturation (94-97) % Sodium 146 H (137-145) mmol/L Chloride 119 H (98-107) mmol/L Carbon Dioxide 16 L (22-30) mmol/L BUN 32 H (9-20) mg/dL Glucose 169 H (74-99) mg/dL POC Glucose (mg/dL) 166 H 188 H (75-99) mg/dL Calcium 6.7 L (8.4-10.2) mg/dL Magnesium 2.8 H (1.6-2.3) mg/dL Total Bilirubin 2.2 H (0.2-1.3) mg/dL Total Protein 5.0 L (6.3-8.2) g/dL Albumin 2.0 L (3.5-5.0) g/dL 05/31/21 05/31/21 05/31/21 Range/Units 04:20 06:00 06:15 RBC 2.81 L (4.30-5.90) m/uL Hgb 7.9 L (13.0-17.5) gm/dL Hct 26.1 L (39.0-53.0) % MCHC 30.4 L (31.0-37.0) g/dL RDW 16.0 H (11.5-15.5) % ABG pH 7.31 L (7.35-7.45) ABG pO2 55 L* (83-108) mmHg ABG HCO3 20 L (21-25) mmol/L ABG O2 Saturation 87.2 L (94-97) % Sodium (137-145) mmol/L Chloride (98-107) mmol/L Carbon Dioxide (22-30) mmol/L BUN (9-20) mg/dL Glucose (74-99) mg/dL POC Glucose (mg/dL) 171 H (75-99) mg/dL Calcium (8.4-10.2) mg/dL Magnesium (1.6-2.3) mg/dL Total Bilirubin (0.2-1.3) mg/dL Total Protein (6.3-8.2) g/dL Albumin (3.5-5.0) g/dL 05/31/21 05/31/21 Range/Units 08:36 11:27 RBC (4.30-5.90) m/uL Hgb (13.0-17.5) gm/dL Hct (39.0-53.0) % MCHC (31.0-37.0) g/dL RDW (11.5-15.5) % ABG pH (7.35-7.45) ABG pO2 (83-108) mmHg ABG HCO3 (21-25) mmol/L ABG O2 Saturation (94-97) % Sodium (137-145) mmol/L Chloride (98-107) mmol/L Carbon Dioxide (22-30) mmol/L BUN (9-20) mg/dL Glucose (74-99) mg/dL POC Glucose (mg/dL) 155 H 150 H (75-99) mg/dL Calcium (8.4-10.2) mg/dL Magnesium (1.6-2.3) mg/dL Total Bilirubin (0.2-1.3) mg/dL Total Protein (6.3-8.2) g/dL Albumin (3.5-5.0) g/dL Microbiology - Last 24 Hours (Table) 05/28/21 07:37 Anaerobic Culture - Final Abdomen Anaerobic Gm Negative Bacilli 05/25/21 22:33 Blood Culture - Preliminary Blood No Growth after 120 hours 05/25/21 21:27 Blood Culture - Preliminary Blood No Growth after 120 hours 05/29/21 21:34 Gram Stain - Preliminary Sputum Sputum Culture - Preliminary 05/29/21 18:50 Urine Culture - Final Urine,Catheterized 05/28/21 07:37 Gram Stain - Final Abdomen Wound Culture - Final Escherichia coli Keke albicans
[2021-05-31] MEDS: ANIDULAFUNGIN 100 MG in SODIUM CHLORIDE 0.9% 100 ML IVPB SCH (15:16)
[2021-05-31 15:32] LABS: Glucose,Whole Blood 146 mg/dL (75-99)
--- NOTE | 2021-05-31 16:09 | PN ---
PROGRESS NOTE DATE OF SERVICE: 05/31/2021 This 41-year-old gentleman who was admitted with acute abdominal perforation and possibly Crohn's disease and abscess formation had surgery. The patient also had significant acute respiratory failure. The patient also had possible Covid pneumonia. The patient is on mechanical ventilation. Patient is being closely monitored, mechanically sedated at this time. Chest x-ray showed ( ) elevated right hemidiaphragm as well. The ABGs are noted. Cultures are showing anaerobic gram-negative bacilli from the culture and as well as E coli and Keke albicans from the wound also. No chest pain. No palpitations. PAST MEDICAL HISTORY: Reviewed. REVIEW OF SYSTEMS: Could not be taken. CURRENT MEDICATIONS: Reviewed include TPN, amiodarone, ( ), Lovenox, Dilaudid. Doses and other medications are noted. PHYSICAL EXAMINATION: Patient is mechanically sedated. Pulse 80, blood pressure 132/60, respiration 24, temperature normal, pulse ox 94% on mechanical ventilation and setting 70% FiO2. HEENT: Conjunctivae normal. Oral mucosa moist. NECK: No jugular venous distention. No lymph node enlargement. CARDIOVASCULAR: S1, S2, muffled. No S3, no S4, RESPIRATORY: Diminished breath sounds at the bases. A few scattered rhonchi. ABDOMEN: Soft, obese, status post surgery. LEGS: No edema, no swelling. NERVOUS SYSTEM: Mechanically sedated. LABS: At this time shows Accu-Cheks noted 150, 143. WBC ( ), hemoglobin 7.9. Cultures are noted. ABGs noted. Sodium 142, potassium 3.9. ASSESSMENT: 1. Acute abdominal pain with possible acute perforation and abscess with possible sepsis, present on admission, status post exploratory laparotomy, ileocolectomy and washout with peritoneal abscess and peritonitis. 2. E coli and Keke albicans from the wound. 3. Acute hypoxic respiratory failure on mechanical ventilation. 4. Atrial fibrillation with fast ventricular rate. 5. Acute Covid-19 infection with possible acute bibasilar pneumonia. 6. Hyponatremia. 7. Elevated D-dimer without any evidence of acute pulmonary embolism, possibly secondary to sepsis. 8. Increased creatinine with acute renal failure and acute tubular necrosis. 9. Leukopenia. 10.Increased WBC. 11.History of hernia repair. 12.History of nicotine dependence. 13.Obesity with body mass index of 44.6. 14.FULL CODE. RECOMMENDATIONS: Recommend to continue current management, continue symptomatic treatment. Continue antibiotics and antifungals. Repeat labs. The prognosis is guarded because of multiple complex medical issues. Further recommendations to follow. MMODL / IJN: [id number] /
[2021-05-31 21:25] LABS: Glucose,Whole Blood 151 mg/dL (75-99)
[2021-05-31] MEDS: HYDROmorphone 1 MG/ML 1 ML SYRINGE IVP PRN (21:58)
--- NOTE | 2021-05-31 23:13 | PN ---
PROGRESS NOTE DATE OF SERVICE: 05/31/2021 REASON FOR FOLLOWUP: Intraabdominal abscess. INTERVAL HISTORY: Patient is afebrile. The patient is hemodynamically stable. FiO2 is currently 65%. No significant purulent secretions thru the ET, diarrhea or any other changes reported by nursing staff. PHYSICAL EXAMINATION: Blood pressure 125/62 with a pulse of 72, temperature 98.2. He is 97% on 55% FiO2. General description is a middle-aged male lying in bed in no distress. Respiratory system: Unlabored breathing, decreased intensity of breath sounds. No wheeze. Heart S1, S2. Regular rate and rhythm. Abdomen soft, mildly distended. No guarding. No rigidity. Extremities are no edema of the feet. LABS: White count normal at 8.2, creatinine 1.01. Abdominal culture with E coli, Keke and anaerobes. DIAGNOSTIC IMPRESSION AND PLAN: Patient with abdominal abscess from a perforated bowel. Abdominal culture positive for E coli, Keke and anaerobes. Patient is covered with Zosyn and Eraxis to continue for now while monitoring clinical course closely. Continue supportive care. MMODL / IJN: [id number] /
[2021-06-01 00:13] LABS: Glucose,Whole Blood 145 mg/dL (75-99)
[2021-06-01] MEDS: metroNIDAZOLE-NS PMX 500 MG in SALINE 1 100ML.BAG IVPB SCH ×4 (00:27→17:25)
[2021-06-01] MEDS: PIPERACILLIN-TAZOBACTAM 3.375 GM in SODIUM CHLORIDE 0.9% 100 ML IVPB SCH ×3 (00:28→16:31)
[2021-06-01] MEDS: INSULIN ASPART (NovoLOG) 100 UNIT/ML VIAL SQ SCH ×6 (00:28→21:18)
[2021-06-01] MEDS: SODIUM CHLORIDE 0.45% 1,000 ML IV SCH (03:14)
[2021-06-01 05:10] LABS: Glucose,Whole Blood 137 mg/dL (75-99)
[2021-06-01] MEDS: HYDROmorphone 1 MG/ML 1 ML SYRINGE IVP PRN (05:25)
[2021-06-01 05:50] LABS: Anisocytosis Slight; HCT 24.1 % (39.0-53.0); HGB 7.6 gm/dL (13.0-17.5); Hypochromasia Marked; MCH 29.2 pg (25.0-35.0); MCHC 31.4 g/dL (31.0-37.0); Mean Platelet Volume 8.6; Platelet Count 310 k/uL (150-450); RBC 2.59 m/uL (4.30-5.90); RDW 16.3 % (11.5-15.5)
[2021-06-01 05:54] LABS: ABG Base Excess -4.7 mmol/L; ABG HCO3 21 mmol/L (21-25); ABG Oxygen Saturation 92.9 % (94-97); ABG PCO2 36 mmHg (35-45); ABG PH 7.37 (7.35-7.45); ABG PO2 65 mmHg (83-108); ABG TCO2 22 mmol/L (19-24); Allen Test Performed? Yes
[2021-06-01 05:59] LABS: ALT 20 U/L (4-49); AST 29 U/L (17-59); African American GFR (CKD) >90 (>60 ml/min/1.73 sqM); Albumin 1.9 g/dL (3.5-5.0); Alkaline Phosphatase 59 U/L (38-126); Anion Gap 5 mmol/L; Blood Urea Nitrogen 28 mg/dL (9-20); Calcium 6.9 mg/dL (8.4-10.2); Carbon Dioxide 17 mmol/L (22-30); Chloride 121 mmol/L (98-107); Glucose 136 mg/dL (74-99); Magnesium 2.5 mg/dL (1.6-2.3); Non-African American GFR(CKD) >90 (>60 ml/min/1.73 sqM); Phosphorus 3.6 mg/dL (2.5-4.5); Potassium 4.8 mmol/L (3.5-5.1); Sodium 143 mmol/L (137-145); Total Bilirubin 1.5 mg/dL (0.2-1.3); Total Protein 5.1 g/dL (6.3-8.2)
[2021-06-01] MEDS: PANTOPRAZOLE 40 MG/10 ML VIAL IVP SCH ×2 (08:03→21:57)
[2021-06-01] MEDS: DEXAMETHASONE SOD PHOSPHATE 10 MG/ML 1 ML VIAL IVP SCH (08:04)
[2021-06-01] MEDS ORDERED: FUROSEMIDE 10 MG/ML 4 ML VIAL IV STA (08:38)
[2021-06-01] MEDS: CHLORHEXIDINE GLUCONATE 15 ML CUP MUCOUS MEM SCH ×2 (08:40→21:57)
[2021-06-01] MEDS: ENOXAPARIN 40 MG/0.4 ML SYRINGE SQ SCH (08:40)
--- NOTE | 2021-06-01 09:01 | XR ---
EXAMINATION TYPE: XR chest 1V portable DATE OF EXAM: 06/01/2021 Comparison: 05/31/2021 Clinical History: 41-year-old male Tube placement Findings: ET tube tip at the level of the medial clavicular heads. NG tube courses below the diaphragm. Left CV C tip at the mid SVC level. Low lung volumes with asymmetric elevation right hemidiaphragm, unchanged . Cardiovascular markings/interstitial prominence. Mild patchy right basilar opacity, probably atelec tasis. Impression: Hypoventilatory changes/possible expiratory exposure. Interstitial prominence could be due to vascula r crowding or mild pulmonary vascular congestion. Mild patchy bibasilar opacities, likely atelectasis .
[2021-06-01 09:40] LABS: Band Neutrophils % 11 %; Lymphocytes # (M) 0.64 k/uL (1.0-4.8); Metamyelocytes # (M) 0.24 k/uL (0); Metamyelocytes % 3 %; Monocytes # (M) 0.48 k/uL (0-1.0); Myelocytes # (M) 0.32 k/uL (0); Myelocytes % 4 %; Neutrophils % (M) 70 %; Nucleated Red Blood Cells 0 /100 WBC (0-0); Total Cells Counted 200
[2021-06-01 09:41] LABS: Poikilocytosis (M) Present
[2021-06-01 09:42] LABS: Glucose,Whole Blood 133 mg/dL (75-99)
--- NOTE | 2021-06-01 09:46 | P.PN ---
Subjective Progress Note Date: 06/01/21 Principal diagnosis: Acute abdomen related to abscess formation and perforation with pneumoperitoneum, acute COVID-19 related pneumonia On 05/30/2021 patient seen in follow-up in the intensive care unit, today is postoperative day #3 status post right colectomy, resection of terminal ileum and end-to-end anastomosis for inflammatory bowel disease with abscess formation and perforation. Patient remains intubated, sedated on assist control mode of ventilation with a rate of 24, tidal volumes 500, FiO2 of 80% and PEEP of 10, today's blood gas shows pO2 66 pCO2 37, and pH of 7.37 this was done on 80% FiO2 and subsequently fio2 has been dropped down to 70%. Chest x-ray today shows low lung volumes with elevated right hemidiaphragm and bilateral multifocal increased opacities consistent with COVID-19 infection. Patient was tested again via rapid COVID-19 PCR test and was found to be positive on 05/27/2021. Current drips include 0.9 at 75 ML per hour, Diprivan is a 50 mics per kilo per minute, Cardizem drip is at 20 mg per hour, amiodarone drip 0.5 mg/m, and norepinephrine drip has been weaned off, patient is on TPN at 70 ML per hour, antibiotics including Zosyn and Flagyl. Abdominal wound cultures were positive for E. coli and Keke. Urine culture is been sent, and remains negative thus far, blood cultures have been negative. he has been afebrile overnight, with T-max of 101.9F. Today's blood work reviewed showing a white blood cell count of 5.2, hemoglobin of 7.9, sodium is 147, potassium is 4.0, chloride is 120, CO2 is 18, BUN is 32, and creatinine is 1.13. Urine output is in the order of 100-125 ML per hour. He is currently in sinus mechanism with a rate of 93 BPM. Abdominal incision is clean dry and intact, Bowel sounds are hypoactive. On 05/31/2021 patient seen in follow-up in intensive care unit. Today's postoperative day #4, status post right colectomy, resection of terminal ileum and end-to-end anastomosis for inflammatory bowel disease with abscess formation and perforation. He remains intubated, he is on volume assist control mode of ventilation, with a rate of 24, tidal volume is 500, FiO2 of 70% and PEEP of 10, this morning's blood gas shows pO2 of 54, pCO2 of 39, and pH of 7.31. Today's chest x-ray showed low lung volumes, elevated right hemidiaphragm and bilateral multifocal increased opacities consistent with COVID-19 infection, no significant change from one day earlier. Patient remains on 0.45 at a rate of 150 ML per hour, TPN is a 70 ML per hour, Diprivan is a 75 mics per kilo per minute, and amiodarone drip is at 0.5 mg/m. Today's labs have been reviewed, white blood cell count is 8.2, hemoglobin is 7.9, sodium is improving and is down to 146, chloride is 119, CO2 is 16, B1 is 32, creatinine is 1.01. Abdominal wound cultures were positive for E. coli and Keke and anaerobic gram-negative bacilli. Urine cultures have been negative, sputum Gram stain showed few PMNs, few budding his, rare gram-positive cocci. Not requiring any vasopressor support, urine output is in the order of 70-150 ML per hour. Heart rate is controlled. Remains in sinus mechanism. Remains on Eraxis, Flagyl, and Zosyn. He is on Protonix for GI prophylaxis, and Lovenox 40 mg daily for DVT prophylaxis. Abdominal incisions clean dry and intact, bowel sounds are hypoactive. On 06/01/2021 patient seen in follow-up in intensive care unit, he remains sedated, intubated on mechanical ventilator, on assist-control mode of ventilation with a rate of 24, tidal volume 500, FiO2 of 60% and PEEP of 15. This point his blood gas shows pO2 of 65, pCO2 36, pH of 7.37 this was done on the above-mentioned vent settings and FiO2 of 60%, his pulse ox is 97-98%, FiO2 has been dropped down to 50%. Today's chest x-ray shows hypoventilatory changes interstitial prominence that could be due to vascular crowding or mild pulmonary vascular congestion, mild patchy bibasilar opacities likely related to atelectasis, He is hemodynamically stable. He is currently on 0.9 normal saline at 10 ML per hour, his IV fluids 0.45 at 150 ML per hour, Diprivan is a 75 mics per kilo per minute, amiodarone is at 0.5 mg/m. No vasopressor support. Urine output is in the order of 75-100 ML per hour. Patient is generally fluid overl oaded, he is in over 10 kg positive net fluid balance over the last several days. He remains on TPN furniture no support, bowel sounds are extremely hypoactive. Abdominal incision is clean dry and intact, ADRIAN drain is compressed and draining and there is been 20 mL of serous output in the last 24 hours. Today's labs have been reviewed showing white blood cell count of 8.0, hemoglobin of 7.6, sodium is 143, potassium is 4.8, chloride is 121, CO2 is 17, BUN is 28, creatinine 0.81. Total bilirubin is improving and is down to 1.5, his LFTs are also improved. His abdominal wound culture positive for E. coli and Keke and anaerobic gram negative bacilli, final cultures pending, urine sputum and blood cultures have been negative. No fever overnight.Remains on Eraxis, Flagyl, and Zosyn. He is on Protonix for GI prophylaxis, and Lovenox 40 mg daily for DVT prophylaxis. Objective - Vital Signs Vital signs: Vital Signs Temp 98.4 F 06/01/21 08:00 Pulse 73 06/01/21 09:00 Resp 29 H 06/01/21 09:00 BP 115/62 05/30/21 15:00 Pulse Ox 94 L 06/01/21 09:00 Intake & Output 05/31/21 06/01/21 06/01/21 18:59 06:59 18:59 Intake Total 2986.980 2829.624 536.214 Output Total 1205 995 375 Balance 6814.407 5574.624 161.214 Weight 146.4 kg Intake: IV 257 1983 429 Mvi, Adult No.4 with Vit 590 K 10 ml Trace (Conc-1Ml/ Dose) 1 ml Sodium Phosphate 15 mmol Potassium Chloride 20 meq Calcium Gluconate 1 gm In Amino Acids 5 %/ Dextrose 20 % 1,000 ml @ 70 mls/hr IV .BY DURATION [facility] Rx#:[id number] Piperacillin-Tazobactam 3 100 100 .375 gm In Sodium Chloride 0.9% 100 ml @ 25 mls/hr IVPB Q8HR [facility] Rx# :[id number] Sodium Chloride 0.45% 1949 1650 320 000 ml @ 20 mls/hr IV . Q24H [facility] Rx#:[id number] metroNIDAZOLE-NS PMX 500 200 mg In Saline 1 100ml.bag @ 100 mls/hr IVPB Q6HR [facility] Rx#:[id number] pressure bags 36 33 9 Intake, IV Titration 410.980 846.624 107.214 Amount Amino Acid 4.25%-D10w 1, 60 000 ml @ 30 mls/hr IV .BY DURATION [facility] Rx#: [id number] Amiodarone 450 mg In 250 Dextrose 5% in Water 250 ml @ 0.5 MG/MIN 16.667 mls/hr IV .Q15H [facility] Rx#: [id number] propofoL 1,000 mg In 410.980 596.624 47.214 Empty Bag 1 bag @ Titrate IV .Q0M [facility] Rx#: [id number] Output: Drainage 20 Abdomen 20 Urine 1205 975 375 Other: Voiding Method Indwelling Catheter Indwelling Catheter ABP, PAP, CO, CI - Last Documented Arterial Blood Pressure 147/66 - Exam GENERAL EXAM: Intubated, sedated, 41-year-old white male, on volume assist- control mode of ventilation with FiO2 of 60%, and PEEP of 15, comfortable in no apparent distress. HEAD: Normocephalic/atraumatic. EYES: Normal reaction of pupils, equal size. Conjunctiva pink, sclera white. NOSE: Clear with pink turbinates. THROAT: No erythema or exudates. NECK: No masses, no JVD, no thyroid enlargement, no adenopathy. CHEST: No chest wall deformity. Symmetrical expansion. LUNGS: Equal air entry with no crackles, wheeze, rhonchi or dullness. CVS: Regular rate and rhythm, normal S1 and S2, no gallops, no murmurs, no rubs ABDOMEN: Soft, nontender. No hepatosplenomegaly, normal bowel sounds, no guarding or rigidity. Abdominal incision is clean dry and intact, right lower quadrant ADRIAN drain with small amount of serosanguineous material, ADRIAN drain is compressed and draining. EXTREMITIES: No clubbing, mild generalized edema and edema involving upper and lower extremities, nonpitting. no cyanosis, 2+ pulses and upper and lower extremities. MUSCULOSKELETAL: Muscle strength and tone normal. SPINE: No scoliosis or deformity SKIN: No rashes CENTRAL NERVOUS SYSTEM: Sedated, intubated No focal deficits, tone is normal in all 4 extremities. - Labs CBC & Chem 7: 06/01/21 05:00 06/01/21 05:00 Labs: Abnormal Lab Results - Last 24 Hours (Table) 05/31/21 05/31/21 05/31/21 Range/Units 11:27 15:31 21:24 RBC (4.30-5.90) m/uL Hgb (13.0-17.5) gm/dL Hct (39.0-53.0) % RDW (11.5-15.5) % ABG pO2 (83-108) mmHg ABG O2 Saturation (94-97) % Chloride (98-107) mmol/L Carbon Dioxide (22-30) mmol/L BUN (9-20) mg/dL Glucose (74-99) mg/dL POC Glucose (mg/dL) 150 H 146 H 151 H (75-99) mg/dL Calcium (8.4-10.2) mg/dL Magnesium (1.6-2.3) mg/dL Total Bilirubin (0.2-1.3) mg/dL Total Protein (6.3-8.2) g/dL Albumin (3.5-5.0) g/dL 06/01/21 06/01/21 06/01/21 Range/Units 00:11 05:00 05:00 RBC 2.59 L (4.30-5.90) m/uL Hgb 7.6 L (13.0-17.5) gm/dL Hct 24.1 L (39.0-53.0) % RDW 16.3 H (11.5-15.5) % ABG pO2 (83-108) mmHg ABG O2 Saturation (94-97) % Chloride 121 H (98-107) mmol/L Carbon Dioxide 17 L (22-30) mmol/L BUN 28 H (9-20) mg/dL Glucose 136 H (74-99) mg/dL POC Glucose (mg/dL) 145 H (75-99) mg/dL Calcium 6.9 L (8.4-10.2) mg/dL Magnesium 2.5 H (1.6-2.3) mg/dL Total Bilirubin 1.5 H (0.2-1.3) mg/dL Total Protein 5.1 L (6.3-8.2) g/dL Albumin 1.9 L (3.5-5.0) g/dL 06/01/21 06/01/21 Range/Units 05:09 05:50 RBC (4.30-5.90) m/uL Hgb (13.0-17.5) gm/dL Hct (39.0-53.0) % RDW (11.5-15.5) % ABG pO2 65 L (83-108) mmHg ABG O2 Saturation 92.9 L (94-97) % Chloride (98-107) mmol/L Carbon Dioxide (22-30) mmol/L BUN (9-20) mg/dL Glucose (74-99) mg/dL POC Glucose (mg/dL) 137 H (75-99) mg/dL Calcium (8.4-10.2) mg/dL Magnesium (1.6-2.3) mg/dL Total Bilirubin (0.2-1.3) mg/dL Total Protein (6.3-8.2) g/dL Albumin (3.5-5.0) g/dL Microbiology - Last 24 Hours (Table) 05/25/21 22:33 Blood Culture - Final Blood No Growth after 144 hours 05/25/21 21:27 Blood Culture - Final Blood No Growth after 144 hours 05/30/21 13:35 Blood Culture - Preliminary Blood No Growth after 24 hours 05/28/21 07:37 Anaerobic Culture - Final Abdomen Anaerobic Gm Negative Bacilli Assessment and Plan Plan: Assessment: #1. Acute abdomen related to inflammatory bowel disease involving the terminal ileum with abscess formation and perforation with pneumoperitoneum, status post surgical resection of the terminal ileum of the colon, ileocolectomy and colectomy of the right colon, on 05/28/2021. #2. Acute hypoxic respiratory failure, related to acute abdominal sepsis, and acute COVID-19 related pneumonia, improved, FiO2 is currently down to 50%, and a PEEP of 15. There is a possibility of right hemidiaphragm elevation, possible right hemidiaphragm paralysis #3. Atrial fibrillation with RVR, currently in sinus mechanism. Remains on IV amiodarone, Cardizem has been discontinued #4. Fever related to acute abdominal sepsis, improved #5. Hyponatremia, improved, and patient now has hypernatremia related to free water deficit, patient remains on 0.45 at a rate of 150 ML per hour #6. Acute kidney injury, renal function has improved #7. Acute lactic acidosis, improved, anion gap acidosis has resolved #8. Leukocytosis, improved #9. Anemia, possibly dilutional. Plan: Today's blood gases, chest x-ray, labs reviewed Patient will continue on assist-control mode of ventilation, drop Fio2 to 50%, and PEEP will stay at 15 Wean FiO2 to Maintain O2 saturations at or above 90% If maintains stable O2 saturations at or above 92%, we will start weaning the PEEP Continue Decadron Continue Zosyn and Flagyl for antibiotic coverage Hemodynamically patient is more stable, not requiring vasopressor support adequate urine output We will discontinue 0.45 at 150 Generally patient is fluid overloaded We'll give the patient one-time dose of Lasix 40 mg Continue TPN for nutritional support Continue Lovenox for DVT prophylaxis Patient remains in sinus mechanism, no recurrence of A. fib Cardiology recommendations in regards to continuation of amiodarone and anticoagulation We'll continue to closely follow I performed a history & physical examination of the patient and discussed their management with my nurse practitioner, Ирина Woods. I reviewed the nurse practitioner's note and agree with the documented findings and plan of care. Lung sounds are positive for dim breath sounds throughout the lung moran. The findings and the impression was discussed with the patient. I attest to the documentation by the nurse practitioner. Time with Patient: Greater than 30
[2021-06-01 11:12] LABS: Glucose,Whole Blood 140 mg/dL (75-99)
--- NOTE | 2021-06-01 12:07 | CDI ---
Documentation Clarification Form Date: 06/01/2021 11:06:36 AM From: Gege Castro RN, CCDS Admit Date: 05/25/2021 08:59:00 PM Patient Name: Mc Salcedo Visit Number: [id number] Discharge Date: ATTENTION: The Clinical Documentation Specialists (CDI) and [facility] Coding Staff appreciate your assistance in clarifying documentation. Please respond to the clarification below the line at the bottom and electronically sign. The CDI & [facility] Coding staff will review the response and follow-up if needed. Please note: Queries are made part of the Legal Health Record. If you have any questions, please contact the author of this message via ITS. Dr. Marco A Marsh The patient presented with pneumoperitoneum. Additional clarification regarding the etiology/cause of the clinical indicators is requested. 05/27 IM (Dr. Parikh) consult and subsequent progress notes: Acuter appendiceal perforation possible with acute abdomen with possible sepsis present on admission 05/28 IM (Dr. Parikh) Acute abdomen with possible acute perforation abscess with possible sepsis, present on admission, status post exploratory laparotomy and ileocolectomy and washout of the peritoneal abscess. Acute peritonitis History/Risk Factors: no reported history, Former smoker Clinical Indicators: 41-year-old male present with worsening abdominal pain. 05/25 WBC: 11.5, NA+ 129, BUN 27, CR 1.35 05/17 Rapid result Antigen Test: Positive Covid -19 05/25 Covid (PCR) Detected Covid (PCR) Detected 05/26 Lactic acid 2.1, 2.7, 2.8 05/25 Blood cultures: No growth 05/28 Gram Stain /wound culture: Escherichia coli, Keke albicans 05/25 Vital signs: 127/73 107 22 98.6 Treatment: ICU Monitoring .9NS Bolus (x4) Mechanical ventilation (per pulmonary) 05/30 ID Consult: Patient with secondary peritonitis with evidence of pneumoperitoneum taken to OR on May 28 post ileocolectomu with suspected Crohn's disease with an abscess. Zosyn 3.375 GM IVPB Q 8 HRS Eraxis 200 MG IVPB Once then 100MG IVPB Daily In your professional opinion, please clarify if these findings signify one of the following conditions: [ ] Sepsis POA, treated and resolved [ xxx ] Sepsis, Not POA [ ] Severe Sepsis with organ failure [ ] Septic Shock [ ] Other, please specify [ ] Unable to determine SIRS Criteria: 2 or more of the following may indicate SIRS -Temperature < 96.8F (36C) or > 101.0F (38.3C) -Heart Rate > 90 bpm -Respiratory Rate > 20 breaths/min or PaCO2 < 32 mmHg -White Blood Cell Count > 12,000 or < 4,000 cells/mm3 or > 10% bands (Template Last Reviewed: June 2020) MTDD
--- NOTE | 2021-06-01 12:23 | PN ---
PROGRESS NOTE This is a gentleman with significant medical problems, underwent laparotomy with multiple surgery. He is on IV amiodarone and since he cannot take any oral agents. Whenever it is okay for him to take oral agents, I would recommend that we switch the amiodarone from IV to 200 mg b.i.d. through the NG tube. Vitals are stable. I did not perform a detailed examination. We will change amiodarone from IV to oral and we will continue to see him as needed. MMODL / IJN: [id number] /
[2021-06-01] MEDS: AMIODARONE 450 MG in DEXTROSE 5% IN WATER 250 ML IV SCH ×2 (13:05)
--- NOTE | 2021-06-01 13:05 | ECHOF ---
Referral Reason:abnormal EKG MEASUREMENTS -------- HEIGHT: 0.0 cm WEIGHT: 0.0 kg BP: RVIDd: 2.8 cm (< 3.3) IVSd: 1.3 cm (0.6 - 1.1) LVIDd: 4.2 cm (3.9 - 5.3) LVPWd: 1.2 cm (0.6 - 1.1) IVSs: 1.8 cm LVIDs: 3.1 cm LVPWs: 2.2 cm FINDINGS -------- Morbid Obesity Limited study due to COVID 19 EXPOSURE. Overall left ventricular systolic function is normal with, an EF between 55 - 60 %. CONCLUSIONS -------- 1. Morbid Obesity 2. Limited study due to COVID 19 EXPOSURE. 3. Overall left ventricular systolic function is normal with, an EF between 55 - 60 %. ELEVATOR EXAMINER AND ADJUSTER: Shantal Alvarenga RDCS
[2021-06-01] MEDS ORDERED: DEXTROSE 5% IN WATER 1,000 ML IV ONE (13:34)
--- NOTE | 2021-06-01 14:16 | P.PN ---
Subjective Progress Note Date: 06/01/21 CHIEF COMPLAINT: Crohn's disease with abscess HISTORY OF PRESENT ILLNESS: Patient is postop day #4 status post ileocolectomy with washout of peritoneal abscess for Crohn's disease with abscess. Patient is in the ICU and intubated. Afebrile. WBC 8 hemoglobin 7.6 platelets 310 Patient seen and examined with Dr. steen PHYSICAL EXAM: VITAL SIGNS: Reviewed. GENERAL: Well-developed in no acute distress. HEENT: No sclera icterus. Extraocular movements grossly intact. Moist buccal mucosa. Head is atraumatic, normocephalic. ABDOMEN: Soft. Nondistended. Incisional dressing clean dry and intact ADRIAN drain with 20 mL of serous output NEUROLOGIC: Intubated and sedated ASSESSMENT: 1. Crohn's disease with abscess status post ileocolectomy with washout of peritoneal abscess 2. Pneumoperitoneum 3. COVID-19 pneumonia PLAN: -Continue ICU management -Continue supportive care -Continue local wound care -Continue antibiotics -Continue TPN for nutrition support -DVT prophylaxis Lovenox Physician Field Identification Specialist note has been reviewed by physician. Signing provider agrees with the documented findings, assessment, and plan of care. Objective - Vital Signs Vital signs: Vital Signs Temp 98.6 F 06/01/21 12:00 Pulse 70 06/01/21 12:00 Resp 25 H 06/01/21 12:00 BP 115/62 05/30/21 15:00 Pulse Ox 95 06/01/21 12:00 Intake & Output 05/31/21 06/01/21 06/01/21 18:59 06:59 18:59 Intake Total 2986.980 2829.624 895.214 Output Total 4554 168 7290 Balance 3043.095 2237.624 -1479.786 Weight 146.4 kg Intake: IV 2576 1983 598 Mvi, Adult No.4 with Vit 590 K 10 ml Trace (Conc-1Ml/ Dose) 1 ml Sodium Phosphate 15 mmol Potassium Chloride 20 meq Calcium Gluconate 1 gm In Amino Acids 5 %/ Dextrose 20 % 1,000 ml @ 70 mls/hr IV .BY DURATION [facility] Rx#:[id number] Piperacillin-Tazobactam 3 100 100 .375 gm In Sodium Chloride 0.9% 100 ml @ 25 mls/hr IVPB Q8HR [facility] Rx# :[id number] Sodium Chloride 0.45% 1949 165 380 000 ml @ 20 mls/hr IV . Q24H [facility] Rx#:[id number] metroNIDAZOLE-NS PMX 500 200 100 mg In Saline 1 100ml.bag @ 100 mls/hr IVPB Q6HR [facility] Rx#:[id number] pressure bags 36 33 18 Intake, IV Titration 410.980 846.624 297.214 Amount Amino Acid 4.25%-D10w 1, 150 000 ml @ 30 mls/hr IV .BY DURATION [facility] Rx#: [id number] Amiodarone 450 mg In 250 Dextrose 5% in Water 250 ml @ 0.5 MG/MIN 16.667 mls/hr IV .Q15H [facility] Rx#: [id number] propofoL 1,000 mg In 410.980 596.624 147.214 Empty Bag 1 bag @ Titrate IV .Q0M [facility] Rx#: [id number] Output: Drainage 20 Abdomen 20 Urine 2588 242 6750 Other: Voiding Method Indwelling Catheter Indwelling Catheter Indwelling Catheter ABP, PAP, CO, CI - Last Documented Arterial Blood Pressure 119/73 - Labs CBC & Chem 7: 06/01/21 05:00 06/01/21 05:00 Labs: Abnormal Lab Results - Last 24 Hours (Table) 05/31/21 05/31/21 06/01/21 Range/Units 15:31 21:24 00:11 RBC (4.30-5.90) m/uL Hgb (13.0-17.5) gm/dL Hct (39.0-53.0) % RDW (11.5-15.5) % Lymphocytes # (Manual) (1.0-4.8) k/uL Metamyelocytes # (Man) (0) k/uL Myelocytes # (Manual) (0) k/uL ABG pO2 (83-108) mmHg ABG O2 Saturation (94-97) % Chloride (98-107) mmol/L Carbon Dioxide (22-30) mmol/L BUN (9-20) mg/dL Glucose (74-99) mg/dL POC Glucose (mg/dL) 146 H 151 H 145 H (75-99) mg/dL Calcium (8.4-10.2) mg/dL Magnesium (1.6-2.3) mg/dL Total Bilirubin (0.2-1.3) mg/dL Total Protein (6.3-8.2) g/dL Albumin (3.5-5.0) g/dL 06/01/21 06/01/21 06/01/21 Range/Units 05:00 05:00 05:09 RBC 2.59 L (4.30-5.90) m/uL Hgb 7.6 L (13.0-17.5) gm/dL Hct 24.1 L (39.0-53.0) % RDW 16.3 H (11.5-15.5) % Lymphocytes # (Manual) 0.64 L (1.0-4.8) k/uL Metamyelocytes # (Man) 0.24 H (0) k/uL Myelocytes # (Manual) 0.32 H (0) k/uL ABG pO2 (83-108) mmHg ABG O2 Saturation (94-97) % Chloride 121 H (98-107) mmol/L Carbon Dioxide 17 L (22-30) mmol/L BUN 28 H (9-20) mg/dL Glucose 136 H (74-99) mg/dL POC Glucose (mg/dL) 137 H (75-99) mg/dL Calcium 6.9 L (8.4-10.2) mg/dL Magnesium 2.5 H (1.6-2.3) mg/dL Total Bilirubin 1.5 H (0.2-1.3) mg/dL Total Protein 5.1 L (6.3-8.2) g/dL Albumin 1.9 L (3.5-5.0) g/dL 06/01/21 06/01/21 06/01/21 Range/Units 05:50 09:39 11:10 RBC (4.30-5.90) m/uL Hgb (13.0-17.5) gm/dL Hct (39.0-53.0) % RDW (11.5-15.5) % Lymphocytes # (Manual) (1.0-4.8) k/uL Metamyelocytes # (Man) (0) k/uL Myelocytes # (Manual) (0) k/uL ABG pO2 65 L (83-108) mmHg ABG O2 Saturation 92.9 L (94-97) % Chloride (98-107) mmol/L Carbon Dioxide (22-30) mmol/L BUN (9-20) mg/dL Glucose (74-99) mg/dL POC Glucose (mg/dL) 133 H 140 H (75-99) mg/dL Calcium (8.4-10.2) mg/dL Magnesium (1.6-2.3) mg/dL Total Bilirubin (0.2-1.3) mg/dL Total Protein (6.3-8.2) g/dL Albumin (3.5-5.0) g/dL Microbiology - Last 24 Hours (Table) 05/29/21 21:34 Gram Stain - Final Sputum Sputum Culture - Final Keke albicans 05/25/21 22:33 Blood Culture - Final Blood No Growth after 144 hours 05/25/21 21:27 Blood Culture - Final Blood No Growth after 144 hours 05/30/21 13:35 Blood Culture - Preliminary Blood No Growth after 24 hours 05/28/21 07:37 Anaerobic Culture - Final Abdomen Anaerobic Gm Negative Bacilli
[2021-06-01] MEDS: HYDROmorphone 0.5 MG/0.5 ML SYRINGE IVP PRN (14:22)
--- NOTE | 2021-06-01 14:27 | US ---
EXAMINATION TYPE: US liver DATE OF EXAM: 06/01/2021 COMPARISON: NONE CLINICAL HISTORY: 41-year-old male with pain, assess liver. TECHNIQUE: Multiple sonographic images of the right upper quadrant are obtained. FINDINGS: EXAM MEASUREMENTS: Liver Length: 16.4 cm Gallbladder Wall: 0.2 cm CBD: 0.3 cm Right Kidney: not seen Dry Cans Operator notes: Morbidly obese ICU patient on a vent with bandaging slightly right of midline. Int erstitial edema. Extremely limited study. Pancreas: Obscured by bowel gas Liver: very limited views show slight heterogeneity and nodular contour. Gallbladder: very limited views show no obvious abnormality Evidence for sonographic Chang's sign: no CBD: wnl Right Kidney: obscured, see limitations IMPRESSION: 1. Severely limited exam. The liver shows slightly heterogeneous parenchyma and subtle contour nodula rity. Correlate for underlying cirrhosis. 2. No gross abnormality of the gallbladder. No biliary ductal dilatation seen.
--- NOTE | 2021-06-01 15:26 | PN ---
PROGRESS NOTE DATE OF SERVICE: 06/01/2021 This 41-year-old gentleman who was admitted with acute abdominal pain with acute perforation, abscess with possible sepsis is being closely monitored at this time. The patient is on mechanical ventilation. The patient has also had Keke from the wound culture also. The patient also had Covid 19 pneumonia. The most recent chest x-ray which was reviewed personally by me showed acute bilateral infiltrate and elevated right hemidiaphragm also. PAST MEDICAL HISTORY: Reviewed. REVIEW OF SYMPTOMS: Review of systems could not be taken, the patient is mechanically ventilated and sedated. MEDICATIONS: Current medications are reviewed and include: TPN, amiodarone, dexamethasone, Lovenox. Doses and other medications reviewed. PHYSICAL EXAMINATION: Patient is mechanically ventilated and sedated. Pulse 70. Blood pressure is 190/72, respirations noted, temperature 98.2, pulse ox 94% on mechanical ventilation. 50% FiO2. HEENT: Conjunctivae normal. Neck: No JVD. Cardiovascular: S1, S2 muffled. Respiratory: Breath sounds diminished in the bases. A few scattered rhonchi. Abdomen: Soft, obese, status post surgery. LEGS are no edema. No swelling. Nervous system: No focal deficits. LABS: Hemoglobin 7.7, white count is 8. ABGs noted. Otherwise, chloride is 121, and total bilirubin is 1.5. ASSESSMENT: 1. Acute abdominal pain with possible acute perforation and abscess with possible sepsis, present on admission, status post exploratory laparotomy, ileocolectomy and as well as washout with peritoneal abscess and peritonitis. 2. E coli and Keke albicans from the wound. 3. Acute hypoxic respiratory failure on mechanical ventilation. 4. Atrial fibrillation with fast ventricular rate, paroxysmal. 5. Acute Covid 19 infection, possible acute bibasilar pneumonia. 6. Hyponatremia. 7. Hyperchloremia. 8. Elevated D-dimer without any evidence of acute pulmonary embolism, possibly secondary to sepsis. 9. Increased creatinine with acute renal failure with acute tubular necrosis. 10.Leukopenia. 11.Increased WBC. 12.History of hernia repair. 13.History of nicotine dependence. 14.Obesity with body mass index of 44.6. 15.Hypoalbuminemia and rule out chronic liver disease. 16.FULL CODE. RECOMMENDATIONS AND DISCUSSION: Recommend to continue current medications, management and symptomatic treatment. Continue with antibiotics. Continue monitoring. Otherwise, repeat labs. Adjust the TPN to treat hyperchloremia. The patient also has severe hypoalbuminemia. We will also continue to monitor. Guarded prognosis. Further recommendations to follow. I would order ultrasound of the liver. Continue TPN. MMODL / IJN: [id number] /
[2021-06-01 15:50] LABS: Glucose,Whole Blood 132 mg/dL (75-99)
[2021-06-01] MEDS: ANIDULAFUNGIN 100 MG in SODIUM CHLORIDE 0.9% 100 ML IVPB SCH (15:50)
--- NOTE | 2021-06-01 18:26 | PN ---
PROGRESS NOTE DATE OF SERVICE: 06/01/2021 REASON FOR FOLLOWUP: Abdominal sepsis. INTERVAL HISTORY: The patient is afebrile. The patient is hemodynamically stable, not on pressor support. FiO2 is currently 50%. No significant ( ) diarrhea or other changes reported by nursing staff. PHYSICAL EXAMINATION: Blood pressure 150/66, pulse of 73, temperature 98.6. He is 95% on 50% FIO2. General description is a middle-aged male intubated on the vent. Respiratory system: Unlabored breathing, decreased intensity of breath sounds, no wheeze. Heart S1, S2. Regular rate and rhythm. Abdomen soft, mildly distended. No guarding or rigidity. LABS: Hemoglobin 7.6, white count 8.0, creatinine 0.81. DIAGNOSTIC IMPRESSION AND PLAN: Patient with abdominal sepsis status post drainage of the abscess. Culture positive for E coli, Keke albicans and anaerobes. Patient is covered with the Eraxis and Zosyn. White count trending down. Fever has resolved. Continue antibiotics and monitor clinical course closely. Continue supportive care. MMODL / IJN: [id number] /
[2021-06-01 20:41] LABS: Glucose,Whole Blood 129 mg/dL (75-99)
[2021-06-02 00:20] LABS: Glucose,Whole Blood 123 mg/dL (75-99)
[2021-06-02] MEDS: INSULIN ASPART (NovoLOG) 100 UNIT/ML VIAL SQ SCH ×6 (00:51→20:47)
[2021-06-02] MEDS: metroNIDAZOLE-NS PMX 500 MG in SALINE 1 100ML.BAG IVPB SCH ×4 (01:31→17:29)
[2021-06-02] MEDS: PIPERACILLIN-TAZOBACTAM 3.375 GM in SODIUM CHLORIDE 0.9% 100 ML IVPB SCH ×3 (01:31→16:10)
[2021-06-02 05:20] LABS: Magnesium 2.2 mg/dL (1.6-2.3); Phosphorus 3.8 mg/dL (2.5-4.5)
[2021-06-02 05:41] LABS: ABG Base Excess -1.9 mmol/L; ABG HCO3 23 mmol/L (21-25); ABG Oxygen Saturation 92.1 % (94-97); ABG PCO2 36 mmHg (35-45); ABG PH 7.41 (7.35-7.45); ABG PO2 64 mmHg (83-108); ABG TCO2 24 mmol/L (19-24); Allen Test Performed? Yes
[2021-06-02] MEDS: AMIODARONE 450 MG in DEXTROSE 5% IN WATER 250 ML IV SCH ×4 (05:43→20:22)
[2021-06-02 06:48] LABS: HCT 27.4 % (39.0-53.0); HGB 8.7 gm/dL (13.0-17.5); Hypochromasia Moderate; MCH 29.2 pg (25.0-35.0); MCHC 31.8 g/dL (31.0-37.0); MCV 91.6 fL (80.0-100.0); Mean Platelet Volume 8.6; Platelet Count 385 k/uL (150-450); RBC 2.99 m/uL (4.30-5.90); RDW 15.8 % (11.5-15.5); WBC 12.5 k/uL (3.8-10.6)
[2021-06-02 06:57] LABS: ALT 21 U/L (4-49); AST 30 U/L (17-59); African American GFR (CKD) >90 (>60 ml/min/1.73 sqM); Albumin 2.1 g/dL (3.5-5.0); Alkaline Phosphatase 89 U/L (38-126); Anion Gap 8 mmol/L; Blood Urea Nitrogen 30 mg/dL (9-20); Calcium 7.1 mg/dL (8.4-10.2); Carbon Dioxide 18 mmol/L (22-30); Chloride 116 mmol/L (98-107); Glucose 114 mg/dL (74-99); Non-African American GFR(CKD) >90 (>60 ml/min/1.73 sqM); Potassium 4.6 mmol/L (3.5-5.1); Sodium 142 mmol/L (137-145); Total Bilirubin 1.7 mg/dL (0.2-1.3); Total Protein 5.4 g/dL (6.3-8.2)
--- NOTE | 2021-06-02 07:41 | XR ---
EXAMINATION TYPE: XR chest 1V portable DATE OF EXAM: 06/02/2021 Comparison: 06/01/2021 Clinical History: 41-year-old male Tube placement Findings: ET tube tip just above the level of the clavicular heads, approximately 7.3 cm from the jossie. Consi kashmir advancement by 2 cm. NG tube courses below the diaphragm. Left CVC tip mid SVC level. Heart borde rline enlarged. Increasing opacity right mid and lower lung, continued patchy retrocardiac opacity, c ontinued diffuse interstitial density. Impression: 1. ET tube tip 7.3 cm from the jossie, above the level of the medial clavicular heads. Consider advan cement by 2 cm. 2. Increasing now moderate right pleural effusion with adjacent atelectasis and/or consolidation. 3. Continued patchy opacity left base and suspected background pulmonary vascular congestion.
[2021-06-02] MEDS: CHLORHEXIDINE GLUCONATE 15 ML CUP MUCOUS MEM SCH ×2 (07:56→21:51)
[2021-06-02] MEDS: PANTOPRAZOLE 40 MG/10 ML VIAL IVP SCH ×2 (07:57→21:51)
[2021-06-02] MEDS: DEXAMETHASONE SOD PHOSPHATE 10 MG/ML 1 ML VIAL IVP SCH (07:57)
[2021-06-02] MEDS: ENOXAPARIN 40 MG/0.4 ML SYRINGE SQ SCH (07:58)
[2021-06-02 08:55] LABS: Band Neutrophils % 9 %; Metamyelocytes % 4 %; Monocytes # (M) 0.38 k/uL (0-1.0); Myelocytes # (M) 0.13 k/uL (0); Myelocytes % 1 %; Neutrophils % (M) 80 %; Nucleated Red Blood Cells 0 /100 WBC (0-0); Total Cells Counted 200
[2021-06-02] MEDS: FUROSEMIDE 10 MG/ML 4 ML VIAL IV SCH ×2 (09:11→21:51)
[2021-06-02 09:25] LABS: Glucose,Whole Blood 117 mg/dL (75-99)
[2021-06-02] MEDS: HYDROmorphone 0.5 MG/0.5 ML SYRINGE IVP PRN (09:46)
[2021-06-02] MEDS ORDERED: [UNRECOGNIZED DRUG - REMARK] IV SCH ×5 (10:00)
--- NOTE | 2021-06-02 10:12 | P.PN ---
Subjective Progress Note Date: 06/02/21 Principal diagnosis: Acute abdomen related to abscess formation and perforation with pneumoperitoneum, acute COVID-19 related pneumonia On 05/30/2021 patient seen in follow-up in the intensive care unit, today is postoperative day #3 status post right colectomy, resection of terminal ileum and end-to-end anastomosis for inflammatory bowel disease with abscess formation and perforation. Patient remains intubated, sedated on assist control mode of ventilation with a rate of 24, tidal volumes 500, FiO2 of 80% and PEEP of 10, today's blood gas shows pO2 66 pCO2 37, and pH of 7.37 this was done on 80% FiO2 and subsequently fio2 has been dropped down to 70%. Chest x-ray today shows low lung volumes with elevated right hemidiaphragm and bilateral multifocal increased opacities consistent with COVID-19 infection. Patient was tested again via rapid COVID-19 PCR test and was found to be positive on 05/27/2021. Current drips include 0.9 at 75 ML per hour, Diprivan is a 50 mics per kilo per minute, Cardizem drip is at 20 mg per hour, amiodarone drip 0.5 mg/m, and norepinephrine drip has been weaned off, patient is on TPN at 70 ML per hour, antibiotics including Zosyn and Flagyl. Abdominal wound cultures were positive for E. coli and Keke. Urine culture is been sent, and remains negative thus far, blood cultures have been negative. he has been afebrile overnight, with T-max of 101.9F. Today's blood work reviewed showing a white blood cell count of 5.2, hemoglobin of 7.9, sodium is 147, potassium is 4.0, chloride is 120, CO2 is 18, BUN is 32, and creatinine is 1.13. Urine output is in the order of 100-125 ML per hour. He is currently in sinus mechanism with a rate of 93 BPM. Abdominal incision is clean dry and intact, Bowel sounds are hypoactive. On 05/31/2021 patient seen in follow-up in intensive care unit. Today's postoperative day #4, status post right colectomy, resection of terminal ileum and end-to-end anastomosis for inflammatory bowel disease with abscess formation and perforation. He remains intubated, he is on volume assist control mode of ventilation, with a rate of 24, tidal volume is 500, FiO2 of 70% and PEEP of 10, this morning's blood gas shows pO2 of 54, pCO2 of 39, and pH of 7.31. Today's chest x-ray showed low lung volumes, elevated right hemidiaphragm and bilateral multifocal increased opacities consistent with COVID-19 infection, no significant change from one day earlier. Patient remains on 0.45 at a rate of 150 ML per hour, TPN is a 70 ML per hour, Diprivan is a 75 mics per kilo per minute, and amiodarone drip is at 0.5 mg/m. Today's labs have been reviewed, white blood cell count is 8.2, hemoglobin is 7.9, sodium is improving and is down to 146, chloride is 119, CO2 is 16, B1 is 32, creatinine is 1.01. Abdominal wound cultures were positive for E. coli and Keke and anaerobic gram-negative bacilli. Urine cultures have been negative, sputum Gram stain showed few PMNs, few budding his, rare gram-positive cocci. Not requiring any vasopressor support, urine output is in the order of 70-150 ML per hour. Heart rate is controlled. Remains in sinus mechanism. Remains on Eraxis, Flagyl, and Zosyn. He is on Protonix for GI prophylaxis, and Lovenox 40 mg daily for DVT prophylaxis. Abdominal incisions clean dry and intact, bowel sounds are hypoactive. On 06/01/2021 patient seen in follow-up in intensive care unit, he remains sedated, intubated on mechanical ventilator, on assist-control mode of ventilation with a rate of 24, tidal volume 500, FiO2 of 60% and PEEP of 15. This point his blood gas shows pO2 of 65, pCO2 36, pH of 7.37 this was done on the above-mentioned vent settings and FiO2 of 60%, his pulse ox is 97-98%, FiO2 has been dropped down to 50%. Today's chest x-ray shows hypoventilatory changes interstitial prominence that could be due to vascular crowding or mild pulmonary vascular congestion, mild patchy bibasilar opacities likely related to atelectasis, He is hemodynamically stable. He is currently on 0.9 normal saline at 10 ML per hour, his IV fluids 0.45 at 150 ML per hour, Diprivan is a 75 mics per kilo per minute, amiodarone is at 0.5 mg/m. No vasopressor support. Urine output is in the order of 75-100 ML per hour. Patient is generally fluid overl oaded, he is in over 10 kg positive net fluid balance over the last several days. He remains on TPN furniture no support, bowel sounds are extremely hypoactive. Abdominal incision is clean dry and intact, ADRIAN drain is compressed and draining and there is been 20 mL of serous output in the last 24 hours. Today's labs have been reviewed showing white blood cell count of 8.0, hemoglobin of 7.6, sodium is 143, potassium is 4.8, chloride is 121, CO2 is 17, BUN is 28, creatinine 0.81. Total bilirubin is improving and is down to 1.5, his LFTs are also improved. His abdominal wound culture positive for E. coli and Keke and anaerobic gram negative bacilli, final cultures pending, urine sputum and blood cultures have been negative. No fever overnight.Remains on Eraxis, Flagyl, and Zosyn. He is on Protonix for GI prophylaxis, and Lovenox 40 mg daily for DVT prophylaxis. On 06/02/2021 patient seen in follow-up in intensive care unit, he remains intubated, sedated, on assist-control mode of ventilation with a rate of 24, tidal volume is 500, FiO2 of 50% and PEEP was dropped down to 12 from 15 yesterday. This morning's blood gas shows pO2 of 64, pCO2 36, and pH of 7.41 this was done on above-mentioned vent settings, today's chest x-ray has been reviewed, and ET tube was 7.3 cm from the jossie, and ET tube will be advanced 2 cm, there was increasing moderate right pleural effusion with adjacent atelectasis and/or consolidation, and continued patchy opacity at the left base with suspected background pulmonary vascular congestion. No fevers overnight, patient is hemodynamically stable, no vasopressor support for last 48 hours, yesterday returned his fluids down to KVO, and patient received a dose of IV Lasix 40 mg times one, he is in -1.8 L net fluid balance over the last 24 hours, however he is still insignificantly positive net fluid balance of at least 10 kg since admission. He appears to be quite fluid overloaded with a generalized edema. He has remained in sinus mechanism. Has been no recurrence of A. fib with RVR, he remains on amiodarone drip at 0.5 mg/m, he is on D5W at a rate of 20 ML per hour, TPN is at 30 ML per hour, Diprivan is a 75 mics per kilo per minute, no other drips. Today's labs have been reviewed showing white blood cell count of 12.5, hemoglobin of 8.7, sodium is 142, potassium is 4.6, chloride is 116, CO2 is 18, BUN is 30, creatinine 0.87, LFTs are improved, total bilirubin is down to 1.7, liver ultrasound has been completed showing slightly heterogeneous parenchyma and subtle contour nodularity, correlate for underlying cirrhosis, no gross abnormality of the gallbladder, no biliary ductal dilation. His mid abdominal incision covered with a surgical dressing, however there is some drainage from the distal end of the incision, there are gerald in place, and there is packing of the distal end of the abdominal wound, ADRIAN drain is compressed and draining small amount of serous fluid. Bowel sounds are more active on today's exam, however patient has not passed any gas or stool. Objective - Vital Signs Vital signs: Vital Signs Temp 98.3 F 06/02/21 04:00 Pulse 79 06/02/21 08:00 Resp 20 06/02/21 08:00 BP 115/62 05/30/21 15:00 Pulse Ox 94 L 06/02/21 08:00 Intake & Output 06/01/21 06/02/21 06/02/21 18:59 06:59 18:59 Intake Total 9540.427 9887 360.752 Output Total 3680 1585 610 Balance -1817.966 1 -249.248 Weight 145 kg 146.5 kg Intake: IV 736 586 159 Amino Acids 5 %/Dextrose 150 20 % 1,000 ml @ 30 mls/hr IV .Q24H [facility] Rx#: [id number] Piperacillin-Tazobactam 3 100 100 100 .375 gm In Sodium Chloride 0.9% 100 ml @ 25 mls/hr IVPB Q8HR [facility] Rx# :[id number] Sodium Chloride 0.45% 1, 400 200 50 000 ml @ 20 mls/hr IV . Q24H [facility] Rx#:[id number] metroNIDAZOLE-NS PMX 500 200 100 mg In Saline 1 100ml.bag @ 100 mls/hr IVPB Q6HR [facility] Rx#:[id number] pressure bags 36 36 9 Intake, IV Titration 9153.922 7188 201.752 Amount Amino Acid 4.25%-D10w 1, 330 30 60 000 ml @ 30 mls/hr IV .BY DURATION [facility] Rx#: [id number] Amiodarone 450 mg In 250 250 Dextrose 5% in Water 250 ml @ 0.5 MG/MIN 16.667 mls/hr IV .Q15H [facility] Rx#: [id number] Dextrose 5% in Water 1, 100 20 000 ml @ 20 mls/hr IV . Q24H [facility] Rx#:[id number] propofoL 1,000 mg In 446.034 700 141.752 Empty Bag 1 bag @ Titrate IV .Q0M [facility] Rx#: [id number] Output: Gastric Drainage 100 150 50 Drainage 30 180 60 Abdomen 30 180 60 Urine 3550 1255 500 Other: Voiding Method Indwelling Catheter Indwelling Catheter ABP, PAP, CO, CI - Last Documented Arterial Blood Pressure 131/64 - Exam GENERAL EXAM: Intubated, sedated, 41-year-old white male, on volume assist- control mode of ventilation with FiO2 of 50%, and PEEP of 10, comfortable in no apparent distress. HEAD: Normocephalic/atraumatic. EYES: Normal reaction of pupils, equal size. Conjunctiva pink, sclera white. NOSE: Clear with pink turbinates. THROAT: No erythema or exudates. NECK: No masses, no JVD, no thyroid enlargement, no adenopathy. CHEST: No chest wall deformity. Symmetrical expansion. LUNGS: Equal air entry with no crackles, wheeze, rhonchi or dullness. CVS: Regular rate and rhythm, normal S1 and S2, no gallops, no murmurs, no rubs ABDOMEN: Soft, nontender. No hepatosplenomegaly, normal bowel sounds, no guarding or rigidity. Abdominal incision is clean dry and intact, right lower quadrant ADRIAN drain with small amount of serosanguineous material, ADRIAN drain is compressed and draining. EXTREMITIES: No clubbing, mild generalized edema and edema involving upper and lower extremities, nonpitting. no cyanosis, 2+ pulses and upper and lower extremities. MUSCULOSKELETAL: Muscle strength and tone normal. SPINE: No scoliosis or deformity SKIN: No rashes CENTRAL NERVOUS SYSTEM: Sedated, intubated No focal deficits, tone is normal in all 4 extremities. - Labs CBC & Chem 7: 06/02/21 04:20 06/02/21 04:20 Labs: Abnormal Lab Results - Last 24 Hours (Table) 06/01/21 06/01/21 06/01/21 Range/Units 11:10 15:45 20:39 WBC (3.8-10.6) k/uL RBC (4.30-5.90) m/uL Hgb (13.0-17.5) gm/dL Hct (39.0-53.0) % RDW (11.5-15.5) % Neutrophils # (Manual) (1.3-7.7) k/uL Lymphocytes # (Manual) (1.0-4.8) k/uL Metamyelocytes # (Man) (0) k/uL Myelocytes # (Manual) (0) k/uL ABG pO2 (83-108) mmHg ABG O2 Saturation (94-97) % Chloride (98-107) mmol/L Carbon Dioxide (22-30) mmol/L BUN (9-20) mg/dL Glucose (74-99) mg/dL POC Glucose (mg/dL) 140 H 132 H 129 H (75-99) mg/dL Calcium (8.4-10.2) mg/dL Total Bilirubin (0.2-1.3) mg/dL Total Protein (6.3-8.2) g/dL Albumin (3.5-5.0) g/dL 06/02/21 06/02/21 06/02/21 Range/Units 00:19 04:20 04:20 WBC 12.5 H (3.8-10.6) k/uL RBC 2.99 L (4.30-5.90) m/uL Hgb 8.7 L (13.0-17.5) gm/dL Hct 27.4 L (39.0-53.0) % RDW 15.8 H (11.5-15.5) % Neutrophils # (Manual) 11.10 H (1.3-7.7) k/uL Lymphocytes # (Manual) 0.50 L (1.0-4.8) k/uL Metamyelocytes # (Man) 0.50 H (0) k/uL Myelocytes # (Manual) 0.13 H (0) k/uL ABG pO2 (83-108) mmHg ABG O2 Saturation (94-97) % Chloride 116 H (98-107) mmol/L Carbon Dioxide 18 L (22-30) mmol/L BUN 30 H (9-20) mg/dL Glucose 114 H (74-99) mg/dL POC Glucose (mg/dL) 123 H (75-99) mg/dL Calcium 7.1 L (8.4-10.2) mg/dL Total Bilirubin 1.7 H (0.2-1.3) mg/dL Total Protein 5.4 L (6.3-8.2) g/dL Albumin 2.1 L (3.5-5.0) g/dL 06/02/21 06/02/21 Range/Units 05:35 09:23 WBC (3.8-10.6) k/uL RBC (4.30-5.90) m/uL Hgb (13.0-17.5) gm/dL Hct (39.0-53.0) % RDW (11.5-15.5) % Neutrophils # (Manual) (1.3-7.7) k/uL Lymphocytes # (Manual) (1.0-4.8) k/uL Metamyelocytes # (Man) (0) k/uL Myelocytes # (Manual) (0) k/uL ABG pO2 64 L (83-108) mmHg ABG O2 Saturation 92.1 L (94-97) % Chloride (98-107) mmol/L Carbon Dioxide (22-30) mmol/L BUN (9-20) mg/dL Glucose (74-99) mg/dL POC Glucose (mg/dL) 117 H (75-99) mg/dL Calcium (8.4-10.2) mg/dL Total Bilirubin (0.2-1.3) mg/dL Total Protein (6.3-8.2) g/dL Albumin (3.5-5.0) g/dL Microbiology - Last 24 Hours (Table) 05/30/21 13:35 Blood Culture - Preliminary Blood No Growth after 48 hours 05/29/21 21:34 Gram Stain - Final Sputum Sputum Culture - Final Keke albicans Assessment and Plan Plan: Assessment: #1. Acute abdomen related to inflammatory bowel disease involving the terminal ileum with abscess formation and perforation with pneumoperitoneum, status post surgical resection of the terminal ileum of the colon, ileocolectomy and col ectomy of the right colon, on 05/28/2021. #2. Acute hypoxic respiratory failure, related to acute abdominal sepsis, and acute COVID-19 related pneumonia, improved, FiO2 is currently down to 50%, and a PEEP of 10. There is a possibility of right hemidiaphragm elevation, possible right hemidiaphragm paralysis #3. Atrial fibrillation with RVR, currently in sinus mechanism. Remains on IV amiodarone, Cardizem has been discontinued #4. Fever related to acute abdominal sepsis, improved #5. Hyponatremia, improved, and patient now has hypernatremia related to free water deficit, patient remains on 0.45 at a rate of 150 ML per hour #6. Acute kidney injury, renal function has improved #7. Acute lactic acidosis, improved, anion gap acidosis has resolved #8. Leukocytosis, improved #9. Anemia, possibly dilutional, improved with IV diuretics Plan: Today's blood gases, chest x-ray, labs reviewed Oxygenation has improved, FiO2 is down to 50%, PEEP is down to 10 Continue weaning FIo2 to maintain O2 sat at above 90% We will continue on Lasix 40 mg twice daily 2 more doses today Chest x-ray has been reviewed showing increasing right pleural effusion with atelectasis We'll advance the ET tube 2 cm Continue with Zosyn and Flagyl for antibiotic coverage Hemodynamically patient is stable Still quite fluid overloaded We'll continue IV diuretics There has been no recurrence of A. fib Discussed the case with cardiology, amiodarone will be stopped Continue GI and DVT prophylaxis Continue current dose Decadron Will proceed with daily traction of sedation Possibly spontaneous breathing trial with pressure support of 10 and CPAP of 5, if tolerates sedation holiday Probably don't anticipate extubation today, but we will proceed according to his response to sedation holiday trial and spontaneous breathing trial response We'll continue to closely follow Follow-up chest x-ray, blood gases CBC, CMP tomorrow Obtain a set of inflammatory markers, d-dimer Continue to follow I performed a history & physical examination of the patient and discussed their management with my nurse practitioner, Ирина Woods. I reviewed the nurse practitioner's note and agree with the documented findings and plan of care. Lung sounds are positive for dim breath sounds throughout the lung moran. The findings and the impression was discussed with the patient. I attest to the documentation by the nurse practitioner. Time with Patient: Greater than 30
--- NOTE | 2021-06-02 12:18 | PN ---
PROGRESS NOTE Mr. Salcedo is in sinus rhythm. He has had a laparotomy and multiple medical issues after his surgery. However, he is maintaining sinus rhythm. He is on IV amiodarone, which I am suggesting that we can discontinue now and continue his other medications. He is hemodynamically stable. I did not examine the patient, but we will discontinue IV amiodarone, continue other medications and if he has any further arrhythmia, I will come back and re-evaluate him. MMNATALIE / JOAQUIN: [id number] /
[2021-06-02 12:47] LABS: Glucose,Whole Blood 132 mg/dL (75-99)
--- NOTE | 2021-06-02 13:37 | P.PN ---
Subjective Progress Note Date: 06/02/21 CHIEF COMPLAINT: Crohn's disease with abscess HISTORY OF PRESENT ILLNESS: Patient is postop day #5 status post ileocolectomy with washout of peritoneal abscess for Crohn's disease with abscess. Patient is in the ICU and intubated. Patient remains off of vasopressors. Patient is receiving IV Lasix for fluid overload. Patient undergoing sedation holiday. Per nursing staff patient continues to have a brown, red, yellowish drainage from incision site. Afebrile. WBC up at 12.5 HGB 8.7 platelets 385 liver ultrasound shows slightly parenchyma and subtle contour nodularity correlate for underlying cirrhosis. No gross abnormality of the gallbladder. No biliary ductal dilation seen. Patient seen and examined with Dr. steen PHYSICAL EXAM: VITAL SIGNS: Reviewed. GENERAL: Well-developed in no acute distress. HEENT: No sclera icterus. Extraocular movements grossly intact. Moist buccal mucosa. Head is atraumatic, normocephalic. ABDOMEN: Soft. Nondistended. ADRIAN drain with 240 mL of serous output in 24. NEUROLOGIC: Intubated and sedated ASSESSMENT: 1. Crohn's disease with abscess status post ileocolectomy with washout of peritoneal abscess 2. Pneumoperitoneum 3. COVID-19 pneumonia PLAN: -Continue ICU management -Continue supportive care -Continue local wound care -Continue antibiotics -Continue TPN for nutrition support -DVT prophylaxis Lovenox Physician Statistics Teacher note has been reviewed by physician. Signing provider agrees with the documented findings, assessment, and plan of care. Objective - Vital Signs Vital signs: Vital Signs Temp 98.3 F 06/02/21 04:00 Pulse 74 06/02/21 13:00 Resp 21 06/02/21 13:00 BP 115/62 05/30/21 15:00 Pulse Ox 96 06/02/21 13:00 Intake & Output 06/01/21 06/02/21 06/02/21 18:59 06:59 18:59 Intake Total 9441.167 9058 777.711 Output Total 3680 1585 3160 Balance -1817.966 1 -2382.289 Weight 145 kg 146.5 kg Intake: IV 736 586 161 Amino Acids 5 %/Dextrose 150 20 % 1,000 ml @ 30 mls/hr IV .Q24H [facility] Rx#: [id number] Piperacillin-Tazobactam 3 100 100 100 .375 gm In Sodium Chloride 0.9% 100 ml @ 25 mls/hr IVPB Q8HR [facility] Rx# :[id number] Sodium Chloride 0.45% 1, 400 200 40 000 ml @ 20 mls/hr IV . Q24H [facility] Rx#:[id number] metroNIDAZOLE-NS PMX 500 200 100 mg In Saline 1 100ml.bag @ 100 mls/hr IVPB Q6HR [facility] Rx#:[id number] pressure bags 36 36 21 Intake, IV Titration 4914.991 2569 616.711 Amount Amino Acid 4.25%-D10w 1, 330 30 180 000 ml @ 30 mls/hr IV .BY DURATION [facility] Rx#: [id number] Amiodarone 450 mg In 250 250 Dextrose 5% in Water 250 ml @ 0.5 MG/MIN 16.667 mls/hr IV .Q15H [facility] Rx#: [id number] Dextrose 5% in Water 1, 100 20 30 000 ml @ 20 mls/hr IV . Q24H [facility] Rx#:[id number] metroNIDAZOLE-NS PMX 500 100 mg In Saline 1 100ml.bag @ 100 mls/hr IVPB Q6HR [facility] Rx#:[id number] propofoL 1,000 mg In 446.034 700 306.711 Empty Bag 1 bag @ Titrate IV .Q0M [facility] Rx#: [id number] Output: Gastric Drainage 100 150 50 Drainage 30 180 60 Abdomen 30 180 60 Urine 3550 1255 3050 Other: Voiding Method Indwelling Catheter Indwelling Catheter ABP, PAP, CO, CI - Last Documented Arterial Blood Pressure 155/67 - Labs CBC & Chem 7: 06/02/21 04:20 06/02/21 04:20 Labs: Abnormal Lab Results - Last 24 Hours (Table) 06/01/21 06/01/21 06/02/21 Range/Units 15:45 20:39 00:19 WBC (3.8-10.6) k/uL RBC (4.30-5.90) m/uL Hgb (13.0-17.5) gm/dL Hct (39.0-53.0) % RDW (11.5-15.5) % Neutrophils # (Manual) (1.3-7.7) k/uL Lymphocytes # (Manual) (1.0-4.8) k/uL Metamyelocytes # (Man) (0) k/uL Myelocytes # (Manual) (0) k/uL ABG pO2 (83-108) mmHg ABG O2 Saturation (94-97) % Chloride (98-107) mmol/L Carbon Dioxide (22-30) mmol/L BUN (9-20) mg/dL Glucose (74-99) mg/dL POC Glucose (mg/dL) 132 H 129 H 123 H (75-99) mg/dL Calcium (8.4-10.2) mg/dL Total Bilirubin (0.2-1.3) mg/dL Total Protein (6.3-8.2) g/dL Albumin (3.5-5.0) g/dL 06/02/21 06/02/21 06/02/21 Range/Units 04:20 04:20 05:35 WBC 12.5 H (3.8-10.6) k/uL RBC 2.99 L (4.30-5.90) m/uL Hgb 8.7 L (13.0-17.5) gm/dL Hct 27.4 L (39.0-53.0) % RDW 15.8 H (11.5-15.5) % Neutrophils # (Manual) 11.10 H (1.3-7.7) k/uL Lymphocytes # (Manual) 0.50 L (1.0-4.8) k/uL Metamyelocytes # (Man) 0.50 H (0) k/uL Myelocytes # (Manual) 0.13 H (0) k/uL ABG pO2 64 L (83-108) mmHg ABG O2 Saturation 92.1 L (94-97) % Chloride 116 H (98-107) mmol/L Carbon Dioxide 18 L (22-30) mmol/L BUN 30 H (9-20) mg/dL Glucose 114 H (74-99) mg/dL POC Glucose (mg/dL) (75-99) mg/dL Calcium 7.1 L (8.4-10.2) mg/dL Total Bilirubin 1.7 H (0.2-1.3) mg/dL Total Protein 5.4 L (6.3-8.2) g/dL Albumin 2.1 L (3.5-5.0) g/dL 06/02/21 06/02/21 Range/Units 09:23 12:45 WBC (3.8-10.6) k/uL RBC (4.30-5.90) m/uL Hgb (13.0-17.5) gm/dL Hct (39.0-53.0) % RDW (11.5-15.5) % Neutrophils # (Manual) (1.3-7.7) k/uL Lymphocytes # (Manual) (1.0-4.8) k/uL Metamyelocytes # (Man) (0) k/uL Myelocytes # (Manual) (0) k/uL ABG pO2 (83-108) mmHg ABG O2 Saturation (94-97) % Chloride (98-107) mmol/L Carbon Dioxide (22-30) mmol/L BUN (9-20) mg/dL Glucose (74-99) mg/dL POC Glucose (mg/dL) 117 H 132 H (75-99) mg/dL Calcium (8.4-10.2) mg/dL Total Bilirubin (0.2-1.3) mg/dL Total Protein (6.3-8.2) g/dL Albumin (3.5-5.0) g/dL Microbiology - Last 24 Hours (Table) 05/30/21 13:35 Blood Culture - Preliminary Blood No Growth after 48 hours 05/29/21 21:34 Gram Stain - Final Sputum Sputum Culture - Final Keke albicans
[2021-06-02] MEDS: ANIDULAFUNGIN 100 MG in SODIUM CHLORIDE 0.9% 100 ML IVPB SCH (15:12)
[2021-06-02 16:08] LABS: Glucose,Whole Blood 127 mg/dL (75-99)
--- NOTE | 2021-06-02 17:15 | PN ---
PROGRESS NOTE DATE OF SERVICE: 06/02/2021 This 41-year-old gentleman who was admitted with acute abdominal pain and possible acute perforation and abscess. The patient had exploratory laparotomy and ileocolectomy. The patient had mechanical ventilation. The patient also had Covid-19. The patient probably had mild Covid-19 pneumonia also. WBC 12.2, hemoglobin is 8.7, glucose noted. Otherwise, culture showed multiple species including Keke albicans and E coli also. PAST MEDICAL HISTORY: Reviewed. REVIEW OF SYSTEMS: Could not be taken. CURRENT MEDICATIONS: Reviewed include TPN, amiodarone, Lovenox, Lasix, Neurontin. Doses reviewed. PHYSICAL EXAMINATION: The patient is mechanically sedated. Pulse 69, blood pressure 119/50, respiration 24, temperature is normal, pulse ox 97% on 50% mechanical ventilation. HEENT: Conjunctivae normal. Oral mucosa moist. NECK: No jugular venous distention. No lymph node enlargement. CARDIOVASCULAR: S1, S2, muffled. No S3, no S4, RESPIRATORY: Diminished breath sounds at the bases. A few scattered rhonchi. ABDOMEN: Soft, status post surgery. LEGS: No edema, no swelling. NERVOUS SYSTEM: No focal deficits. LAB STUDIES: WBC 12.2, hemoglobin is 8.7, sodium 142, potassium 4.6. ASSESSMENT: 1. Acute abdominal pain with possible acute perforation abscess with possible sepsis present on admission, status post exploratory laparotomy, ileocolectomy as well as washout with peritoneal abscess and peritonitis. 2. E coli with Keke albicans from the wound. 3. Possible Keke albicans and pneumonia. 4. Acute hypoxic respiratory failure on mechanical ventilation. 5. Atrial fibrillation with fast ventricular rate, paroxysmal. 6. Acute Covid-19 infection, possible bibasilar pneumonia. 7. Hyponatremia. 8. Hypochloremia. 9. Elevated D-dimer without any evidence of acute pulmonary embolism, possibly secondary to sepsis. 10.Increased creatinine with acute renal failure with acute tubular necrosis. 11.Leukopenia. 12.Increased WBC. 13.History of hernia repair. 14.History of nicotine dependence. 15.Obesity with body mass index of 44.6. 16.Hypoalbuminemia, rule out chronic liver disease. 17.FULL CODE. RECOMMENDATIONS: Recommend to continue current management, continue symptomatic treatment. Continue antibiotics and antifungals. Monitor closely. Recommend infectious Disease evaluation. Prognosis guarded. Further recommendations to follow. The patient is currently on ( ) and Zosyn. MMODL / IJN: [id number] /
[2021-06-02 20:33] LABS: Glucose,Whole Blood 117 mg/dL (75-99)
--- NOTE | 2021-06-02 23:45 | PN ---
PROGRESS NOTE DATE OF SERVICE: 06/02/2021 REASON FOR FOLLOWUP: Abdominal sepsis. INTERVAL HISTORY: The patient is afebrile. The patient is hemodynamically stable, not on pressor support. FiO2 is currently 50% with significant diarrhea and chills reported by nursing staff. PHYSICAL EXAMINATION: Blood pressure 142/67, pulse 75, temperature 98.9. He is 97% on 50% FIO2. General description is a middle-aged male intubated on the vent. Respiratory system: Unlabored breathing, decreased intensity of breath sounds, no wheeze. Heart S1, S2. Regular rate and rhythm. Abdomen soft, no tenderness. LAB: Hemoglobin 8.7, white count 12.5, creatinine 0.87. DIAGNOSTIC IMPRESSION AND PLAN: Patient with abdominal sepsis, abscess status post drainage and laparotomy. Culture positive for anaerobes, E coli and Keke albicans. Patient is covered with Eraxis and Zosyn. White count mildly up today and will monitor closely. Continue supportive care. MMODL / IJN: [id number] /
[2021-06-03] MEDS: INSULIN ASPART (NovoLOG) 100 UNIT/ML VIAL SQ SCH ×7 (00:02→23:44)
[2021-06-03 00:03] LABS: Glucose,Whole Blood 113 mg/dL (75-99)
[2021-06-03] MEDS: metroNIDAZOLE-NS PMX 500 MG in SALINE 1 100ML.BAG IVPB SCH ×5 (00:39→23:39)
[2021-06-03] MEDS: PIPERACILLIN-TAZOBACTAM 3.375 GM in SODIUM CHLORIDE 0.9% 100 ML IVPB SCH ×4 (00:39→23:39)
[2021-06-03 04:18] LABS: Glucose,Whole Blood 105 mg/dL (75-99)
[2021-06-03 05:50] LABS: ABG Base Excess 2.1 mmol/L; ABG HCO3 26 mmol/L (21-25); ABG Oxygen Saturation 92.3 % (94-97); ABG PCO2 35 mmHg (35-45); ABG PH 7.48 (7.35-7.45); ABG PO2 66 mmHg (83-108); ABG TCO2 27 mmol/L (19-24); Allen Test Performed? Yes
[2021-06-03 06:30] LABS: ALT 19 U/L (4-49); AST 29 U/L (17-59); African American GFR (CKD) >90 (>60 ml/min/1.73 sqM); Albumin 2.1 g/dL (3.5-5.0); Alkaline Phosphatase 102 U/L (38-126); Anion Gap 4 mmol/L; Blood Urea Nitrogen 31 mg/dL (9-20); Carbon Dioxide 23 mmol/L (22-30); Chloride 111 mmol/L (98-107); Glucose 99 mg/dL (74-99); Magnesium 1.9 mg/dL (1.6-2.3); Non-African American GFR(CKD) >90 (>60 ml/min/1.73 sqM); Phosphorus 3.7 mg/dL (2.5-4.5); Potassium 3.9 mmol/L (3.5-5.1); Sodium 138 mmol/L (137-145); Total Bilirubin 1.6 mg/dL (0.2-1.3); Total Protein 5.5 g/dL (6.3-8.2)
[2021-06-03 06:31] LABS: Anisocytosis Slight; Basophils # (A) 0.1 k/uL (0-0.2); Basophils % (A) 0 %; Eosinophils % (A) 0 %; HCT 28.1 % (39.0-53.0); HGB 9.1 gm/dL (13.0-17.5); Hypochromasia Slight; Lymphocytes # (A) 0.7 k/uL (1.0-4.8); Lymphocytes % (A) 6 %; MCH 29.7 pg (25.0-35.0); MCHC 32.5 g/dL (31.0-37.0); MCV 91.4 fL (80.0-100.0); Mean Platelet Volume 8.8; Monocytes # (A) 0.5 k/uL (0-1.0); Monocytes % (A) 4 %; Neutrophils # (A) 10.2 k/uL (1.3-7.7); Neutrophils % (A) 87 %; Platelet Count 361 k/uL (150-450); RBC 3.07 m/uL (4.30-5.90); RDW 16.5 % (11.5-15.5); WBC 11.7 k/uL (3.8-10.6)
[2021-06-03] MEDS: DEXAMETHASONE SOD PHOSPHATE 10 MG/ML 1 ML VIAL IVP SCH (08:41)
[2021-06-03] MEDS: ENOXAPARIN 40 MG/0.4 ML SYRINGE SQ SCH (08:41)
[2021-06-03] MEDS: PANTOPRAZOLE 40 MG/10 ML VIAL IVP SCH ×2 (08:41→20:30)
[2021-06-03] MEDS: CHLORHEXIDINE GLUCONATE 15 ML CUP MUCOUS MEM SCH ×2 (08:41→20:30)
--- NOTE | 2021-06-03 09:19 | XR ---
EXAMINATION TYPE: XR chest 1V portable DATE OF EXAM: 06/03/2021 COMPARISON: 06/02/2021 INDICATION: Tube placement TECHNIQUE: Single frontal view of the chest is obtained. FINDINGS: The heart size is normal. The pulmonary vasculature is normal. There is elevation of the right diaphragm. Subpulmonic effusion should be considered. Previous bibasi lar infiltrates have improved. Endotracheal tube tip is above the jossie. Nasogastric tube tip is in the left upper quadrant of the abdomen. Left central venous catheter is present with the tip in the superior vena cava region. IMPRESSION: 1. Small to moderate subpulmonic right pleural fluid. 2. Improving bibasilar infiltrates. 3. Multiple lines and catheters discussed above.
[2021-06-03 09:27] LABS: Glucose,Whole Blood 99 mg/dL (75-99)
--- NOTE | 2021-06-03 10:19 | P.PN ---
Subjective Progress Note Date: 06/03/21 Principal diagnosis: Acute abdomen related to abscess formation and perforation with pneumoperitoneum, acute COVID-19 related pneumonia On 05/30/2021 patient seen in follow-up in the intensive care unit, today is postoperative day #3 status post right colectomy, resection of terminal ileum and end-to-end anastomosis for inflammatory bowel disease with abscess formation and perforation. Patient remains intubated, sedated on assist control mode of ventilation with a rate of 24, tidal volumes 500, FiO2 of 80% and PEEP of 10, today's blood gas shows pO2 66 pCO2 37, and pH of 7.37 this was done on 80% FiO2 and subsequently fio2 has been dropped down to 70%. Chest x-ray today shows low lung volumes with elevated right hemidiaphragm and bilateral multifocal increased opacities consistent with COVID-19 infection. Patient was tested again via rapid COVID-19 PCR test and was found to be positive on 05/27/2021. Current drips include 0.9 at 75 ML per hour, Diprivan is a 50 mics per kilo per minute, Cardizem drip is at 20 mg per hour, amiodarone drip 0.5 mg/m, and norepinephrine drip has been weaned off, patient is on TPN at 70 ML per hour, antibiotics including Zosyn and Flagyl. Abdominal wound cultures were positive for E. coli and Keke. Urine culture is been sent, and remains negative thus far, blood cultures have been negative. he has been afebrile overnight, with T-max of 101.9F. Today's blood work reviewed showing a white blood cell count of 5.2, hemoglobin of 7.9, sodium is 147, potassium is 4.0, chloride is 120, CO2 is 18, BUN is 32, and creatinine is 1.13. Urine output is in the order of 100-125 ML per hour. He is currently in sinus mechanism with a rate of 93 BPM. Abdominal incision is clean dry and intact, Bowel sounds are hypoactive. On 05/31/2021 patient seen in follow-up in intensive care unit. Today's postoperative day #4, status post right colectomy, resection of terminal ileum and end-to-end anastomosis for inflammatory bowel disease with abscess formation and perforation. He remains intubated, he is on volume assist control mode of ventilation, with a rate of 24, tidal volume is 500, FiO2 of 70% and PEEP of 10, this morning's blood gas shows pO2 of 54, pCO2 of 39, and pH of 7.31. Today's chest x-ray showed low lung volumes, elevated right hemidiaphragm and bilateral multifocal increased opacities consistent with COVID-19 infection, no significant change from one day earlier. Patient remains on 0.45 at a rate of 150 ML per hour, TPN is a 70 ML per hour, Diprivan is a 75 mics per kilo per minute, and amiodarone drip is at 0.5 mg/m. Today's labs have been reviewed, white blood cell count is 8.2, hemoglobin is 7.9, sodium is improving and is down to 146, chloride is 119, CO2 is 16, B1 is 32, creatinine is 1.01. Abdominal wound cultures were positive for E. coli and Keke and anaerobic gram-negative bacilli. Urine cultures have been negative, sputum Gram stain showed few PMNs, few budding his, rare gram-positive cocci. Not requiring any vasopressor support, urine output is in the order of 70-150 ML per hour. Heart rate is controlled. Remains in sinus mechanism. Remains on Eraxis, Flagyl, and Zosyn. He is on Protonix for GI prophylaxis, and Lovenox 40 mg daily for DVT prophylaxis. Abdominal incisions clean dry and intact, bowel sounds are hypoactive. On 06/01/2021 patient seen in follow-up in intensive care unit, he remains sedated, intubated on mechanical ventilator, on assist-control mode of ventilation with a rate of 24, tidal volume 500, FiO2 of 60% and PEEP of 15. This point his blood gas shows pO2 of 65, pCO2 36, pH of 7.37 this was done on the above-mentioned vent settings and FiO2 of 60%, his pulse ox is 97-98%, FiO2 has been dropped down to 50%. Today's chest x-ray shows hypoventilatory changes interstitial prominence that could be due to vascular crowding or mild pulmonary vascular congestion, mild patchy bibasilar opacities likely related to atelectasis, He is hemodynamically stable. He is currently on 0.9 normal saline at 10 ML per hour, his IV fluids 0.45 at 150 ML per hour, Diprivan is a 75 mics per kilo per minute, amiodarone is at 0.5 mg/m. No vasopressor support. Urine output is in the order of 75-100 ML per hour. Patient is generally fluid overl oaded, he is in over 10 kg positive net fluid balance over the last several days. He remains on TPN furniture no support, bowel sounds are extremely hypoactive. Abdominal incision is clean dry and intact, ARDIAN drain is compressed and draining and there is been 20 mL of serous output in the last 24 hours. Today's labs have been reviewed showing white blood cell count of 8.0, hemoglobin of 7.6, sodium is 143, potassium is 4.8, chloride is 121, CO2 is 17, BUN is 28, creatinine 0.81. Total bilirubin is improving and is down to 1.5, his LFTs are also improved. His abdominal wound culture positive for E. coli and Keke and anaerobic gram negative bacilli, final cultures pending, urine sputum and blood cultures have been negative. No fever overnight.Remains on Eraxis, Flagyl, and Zosyn. He is on Protonix for GI prophylaxis, and Lovenox 40 mg daily for DVT prophylaxis. On 06/02/2021 patient seen in follow-up in intensive care unit, he remains intubated, sedated, on assist-control mode of ventilation with a rate of 24, tidal volume is 500, FiO2 of 50% and PEEP was dropped down to 12 from 15 yesterday. This morning's blood gas shows pO2 of 64, pCO2 36, and pH of 7.41 this was done on above-mentioned vent settings, today's chest x-ray has been reviewed, and ET tube was 7.3 cm from the jossie, and ET tube will be advanced 2 cm, there was increasing moderate right pleural effusion with adjacent atelectasis and/or consolidation, and continued patchy opacity at the left base with suspected background pulmonary vascular congestion. No fevers overnight, patient is hemodynamically stable, no vasopressor support for last 48 hours, yesterday returned his fluids down to KVO, and patient received a dose of IV Lasix 40 mg times one, he is in -1.8 L net fluid balance over the last 24 hours, however he is still insignificantly positive net fluid balance of at least 10 kg since admission. He appears to be quite fluid overloaded with a generalized edema. He has remained in sinus mechanism. Has been no recurrence of A. fib with RVR, he remains on amiodarone drip at 0.5 mg/m, he is on D5W at a rate of 20 ML per hour, TPN is at 30 ML per hour, Diprivan is a 75 mics per kilo per minute, no other drips. Today's labs have been reviewed showing white blood cell count of 12.5, hemoglobin of 8.7, sodium is 142, potassium is 4.6, chloride is 116, CO2 is 18, BUN is 30, creatinine 0.87, LFTs are improved, total bilirubin is down to 1.7, liver ultrasound has been completed showing slightly heterogeneous parenchyma and subtle contour nodularity, correlate for underlying cirrhosis, no gross abnormality of the gallbladder, no biliary ductal dilation. His mid abdominal incision covered with a surgical dressing, however there is some drainage from the distal end of the incision, there are gerald in place, and there is packing of the distal end of the abdominal wound, ADRIAN drain is compressed and draining small amount of serous fluid. Bowel sounds are more active on today's exam, however patient has not passed any gas or stool. On 06/03/2021 patient follow-up in the intensive care unit, he remains sedated and intubated, patient is currently on assist control mode of ventilation with a rate of 24, tidal vitamins 500, FiO2 of 40% and PEEP of 8. This morning his blood gases shows pO2 of 66, pCO2 of 35, a pH of 7.48, this was done on the above-mentioned vent settings. His pulse ox is 97%. His chest x-ray shows small to moderate subpulmonic right pleural fluid, improving bibasilar infiltrates. Patient was given 2 more doses of IV Lasix yesterday, he has massively diuresed, he is in -6.7 L net fluid balance over the last 24 hours, generalized edema has significantly improved, not requiring any vasopressor support, he remains in sinus mechanism, there has been no recurrence of atrial fibrillation, amiodarone drip has been discontinued, his been afebrile overnig ht, IV drips include Diprivan is a 75 mics per kilo per minute, 0.9 and 20 ML per hour, and TPN is a 30 ML per hour, according to the nursing staff patient had a bowel movement last night, bowel sounds are hypoactive. Abdominal incisions clean dry, and the distal portion of the incision is draining less serous fluid, ADRIAN drain is compressed and draining, minimal output. Abdomen is a little less distended, and there is less weeping out of his upper extremities. Vital signs have been stable overnight, today's labs have been reviewed, white blood cell, slightly improved and is down to 11.7, hemoglobin is 9.1, sodium is 138, potassium 3.9, chloride is 111, B1 is 31 creatinine 0.89. Yesterday patient was given a sedation holiday according to the nursing staff he did wake up and did follow commands appropriately. Objective - Vital Signs Vital signs: Vital Signs Temp 98.9 F 06/03/21 09:00 Pulse 89 06/03/21 09:00 Resp 25 H 06/03/21 09:00 BP 134/69 06/03/21 09:00 Pulse Ox 90 L 06/03/21 09:00 Intake & Output 06/02/21 06/03/21 06/03/21 18:59 06:59 18:59 Intake Total 2153.495 9630.986 390.641 Output Total 3885 5560 980 Balance -2652.756 -4024.014 -589.359 Intake: IV 176 336 109 Piperacillin-Tazobactam 3 100 100 100 .375 gm In Sodium Chloride 0.9% 100 ml @ 25 mls/hr IVPB Q8HR [facility] Rx# :[id number] Sodium Chloride 0.45% 1, 40 000 ml @ 20 mls/hr IV . Q24H [facility] Rx#:[id number] metroNIDAZOLE-NS PMX 500 200 mg In Saline 1 100ml.bag @ 100 mls/hr IVPB Q6HR [facility] Rx#:[id number] pressure bags 36 36 9 Intake, IV Titration 5921.590 2744.986 281.641 Amount Amino Acid 4.25%-D10w 1, 240 000 ml @ 30 mls/hr IV .BY DURATION [facility] Rx#: [id number] Dextrose 5% in Water 1, 90 240 40 000 ml @ 20 mls/hr IV . Q24H [facility] Rx#:[id number] Mvi, Adult No.4 with Vit 90 360 90 K 10 ml Trace (Conc-1Ml/ Dose) 1 ml Sodium Phosphate 6 mmol Calcium Gluconate 1 gm In Amino Acid 4.25%-D10w 1,000 ml @ 30 mls/hr IV .BY DURATION [facility] Rx#: [id number] metroNIDAZOLE-NS PMX 500 100 mg In Saline 1 100ml.bag @ 100 mls/hr IVPB Q6HR [facility] Rx#:[id number] propofoL 1,000 mg In 536.244 599.986 151.641 Empty Bag 1 bag @ Titrate IV .Q0M [facility] Rx#: [id number] Output: Gastric Drainage 50 1300 650 Drainage 60 60 30 Abdomen 60 60 30 Urine 3775 4200 300 Other: Voiding Method Indwelling Catheter Indwelling Catheter ABP, PAP, CO, CI - Last Documented Arterial Blood Pressure 107/55 - Exam GENERAL EXAM: Intubated, sedated, 41-year-old white male, on volume assist- control mode of ventilation with FiO2 of 40%, and PEEP of 10, comfortable in no apparent distress. HEAD: Normocephalic/atraumatic. EYES: Normal reaction of pupils, equal size. Conjunctiva pink, sclera white. NOSE: Clear with pink turbinates. THROAT: No erythema or exudates. NECK: No masses, no JVD, no thyroid enlargement, no adenopathy. CHEST: No chest wall deformity. Symmetrical expansion. LUNGS: Equal air entry with no crackles, wheeze, rhonchi or dullness. CVS: Regular rate and rhythm, normal S1 and S2, no gallops, no murmurs, no rubs ABDOMEN: Soft, nontender. No hepatosplenomegaly, normal bowel sounds, no guarding or rigidity. Abdominal incision is clean dry and intact, right lower quadrant ADRIAN drain with small amount of serosanguineous material, ADRIAN drain is compressed and draining. EXTREMITIES: No clubbing, mild generalized edema and edema involving upper and lower extremities, nonpitting. no cyanosis, 2+ pulses and upper and lower extremities. MUSCULOSKELETAL: Muscle strength and tone normal. SPINE: No scoliosis or deformity SKIN: No rashes CENTRAL NERVOUS SYSTEM: Sedated, intubated No focal deficits, tone is normal in all 4 extremities. - Labs CBC & Chem 7: 06/03/21 04:20 06/03/21 04:20 Labs: Abnormal Lab Results - Last 24 Hours (Table) 06/02/21 06/02/21 06/02/21 Range/Units 12:45 16:06 20:30 WBC (3.8-10.6) k/uL RBC (4.30-5.90) m/uL Hgb (13.0-17.5) gm/dL Hct (39.0-53.0) % RDW (11.5-15.5) % Neutrophils # (1.3-7.7) k/uL Lymphocytes # (1.0-4.8) k/uL ABG pH (7.35-7.45) ABG pO2 (83-108) mmHg ABG HCO3 (21-25) mmol/L ABG Total CO2 (19-24) mmol/L ABG O2 Saturation (94-97) % Chloride (98-107) mmol/L BUN (9-20) mg/dL POC Glucose (mg/dL) 132 H 127 H 117 H (75-99) mg/dL Calcium (8.4-10.2) mg/dL Total Bilirubin (0.2-1.3) mg/dL Total Protein (6.3-8.2) g/dL Albumin (3.5-5.0) g/dL 06/03/21 06/03/21 06/03/21 Range/Units 00:00 04:16 04:20 WBC (3.8-10.6) k/uL RBC (4.30-5.90) m/uL Hgb (13.0-17.5) gm/dL Hct (39.0-53.0) % RDW (11.5-15.5) % Neutrophils # (1.3-7.7) k/uL Lymphocytes # (1.0-4.8) k/uL ABG pH (7.35-7.45) ABG pO2 (83-108) mmHg ABG HCO3 (21-25) mmol/L ABG Total CO2 (19-24) mmol/L ABG O2 Saturation (94-97) % Chloride 111 H (98-107) mmol/L BUN 31 H (9-20) mg/dL POC Glucose (mg/dL) 113 H 105 H (75-99) mg/dL Calcium 7.0 L (8.4-10.2) mg/dL Total Bilirubin 1.6 H (0.2-1.3) mg/dL Total Protein 5.5 L (6.3-8.2) g/dL Albumin 2.1 L (3.5-5.0) g/dL 06/03/21 06/03/21 Range/Units 04:20 05:45 WBC 11.7 H (3.8-10.6) k/uL RBC 3.07 L (4.30-5.90) m/uL Hgb 9.1 L (13.0-17.5) gm/dL Hct 28.1 L (39.0-53.0) % RDW 16.5 H (11.5-15.5) % Neutrophils # 10.2 H (1.3-7.7) k/uL Lymphocytes # 0.7 L (1.0-4.8) k/uL ABG pH 7.48 H (7.35-7.45) ABG pO2 66 L (83-108) mmHg ABG HCO3 26 H (21-25) mmol/L ABG Total CO2 27 H (19-24) mmol/L ABG O2 Saturation 92.3 L (94-97) % Chloride (98-107) mmol/L BUN (9-20) mg/dL POC Glucose (mg/dL) (75-99) mg/dL Calcium (8.4-10.2) mg/dL Total Bilirubin (0.2-1.3) mg/dL Total Protein (6.3-8.2) g/dL Albumin (3.5-5.0) g/dL Microbiology - Last 24 Hours (Table) 05/30/21 13:35 Blood Culture - Preliminary Blood No Growth after 72 hours Assessment and Plan Plan: Assessment: #1. Acute abdomen related to inflammatory bowel disease involving the terminal ileum with abscess formation and perforation with pneumoperitoneum, status post surgical resection of the terminal ileum of the colon, ileocolectomy and colectomy of the right colon, on 05/28/2021. #2. Acute hypoxic respiratory failure, related to acute abdominal sepsis, and acute COVID-19 related pneumonia, improved, FiO2 is currently down to 40%, and a PEEP of 8. There is a possibility of right hemidiaphragm elevation, possible right hemidiaphragm paralysis #3. Atrial fibrillation with RVR, currently in sinus mechanism. Remains on IV amiodarone, Cardizem has been discontinued #4. Fever related to acute abdominal sepsis, improved and recovered #5. Hyponatremia, improved, and patient now has hypernatremia related to free water deficit, patient was fluid resuscitated, currently serum sodium is 138 #6. Acute kidney injury, renal function has improved #7. Acute lactic acidosis, improved, anion gap acidosis has resolved #8. Leukocytosis, improved #9. Anemia, possibly dilutional, improved with IV diuretics. Plan: Today's blood gases, chest x-ray, labs reviewed Oxygenation has improved, drop Fio2 to 40, and drop PEEP to 5 Patient has been sufficiently diuresed Today's chest x-ray has been reviewed showing small right pleural fluid, and im proving basilar infiltrates Continues on Zosyn and Flagyl, patient has been afebrile, hemodynamically remained stable remains in sinus rhythm Continue GI and DVT prophylaxis We will hold further diuresis for now We'll proceed with interruption of sedation, Place the patient on pressure support of 5 and CPAP of 5 with the patient wakes up Obtain a set weaning parameters, Possibly a blood gas if the weaning parameters marginal We will try to extubate the patient today Surgical input as far as initiation of tube feedings Currently he continues on TPN We'll continue to closely follow I performed a history & physical examination of the patient and discussed their management with my nurse practitioner, Ирина Woods. I reviewed the nurse practitioner's note and agree with the documented findings and plan of care. Lung sounds are positive for dim breath sounds throughout the lung moran. The findings and the impression was discussed with the patient. I attest to the documentation by the nurse practitioner. Time with Patient: Greater than 30
[2021-06-03 11:27] LABS: Glucose,Whole Blood 117 mg/dL (75-99)
[2021-06-03 12:00] LABS: ABG HCO3 24 mmol/L (21-25); ABG Oxygen Saturation 90.2 % (94-97); ABG PCO2 32 mmHg (35-45); ABG PH 7.48 (7.35-7.45); ABG TCO2 25 mmol/L (19-24)
[2021-06-03] MEDS: HYDROmorphone 0.5 MG/0.5 ML SYRINGE IVP PRN (12:03)
[2021-06-03 13:43] LABS: ABG PO2 60 mmHg (83-108)
--- NOTE | 2021-06-03 13:48 | P.PN ---
Subjective Progress Note Date: 06/03/21 CHIEF COMPLAINT: Crohn's disease with abscess HISTORY OF PRESENT ILLNESS: Patient is postop day #6 status post ileocolectomy with washout of peritoneal abscess for Crohn's disease with abscess. Patient is in the ICU and intubated. Patient received IV Lasix for fluid overload. He did tolerate his sedation holiday. They are working on trying to wean patient off of the vent. He did have a bowel movement. OG output 650 mL. Afebrile. WBC is 11.7 and HGB 9.1 Patient seen and examined with Dr. steen PHYSICAL EXAM: VITAL SIGNS: Reviewed. GENERAL: Well-developed in no acute distress. HEENT: No sclera icterus. Extraocular movements grossly intact. Moist buccal mucosa. Head is atraumatic, normocephalic. ABDOMEN: Soft. Nondistended. ADRIAN drain serous output NEUROLOGIC: Intubated and sedated ASSESSMENT: 1. Crohn's disease with abscess status post ileocolectomy with washout of perit nichole abscess 2. Pneumoperitoneum 3. COVID-19 pneumonia PLAN: -Recommend to keep patient on TPN for now -Continue ICU management -Continue supportive care -Continue local wound care -Continue antibiotics per ID -DVT prophylaxis Lovenox Physician Produce Associate note has been reviewed by physician. Signing provider agrees with the documented findings, assessment, and plan of care. Objective - Vital Signs Vital signs: Vital Signs Temp 98.0 F 06/03/21 12:00 Pulse 79 06/03/21 13:00 Resp 24 06/03/21 13:00 BP 125/64 06/03/21 13:00 Pulse Ox 93 L 06/03/21 13:00 Intake & Output 06/02/21 06/03/21 06/03/21 18:59 06:59 18:59 Intake Total 8866.129 4269.986 666.376 Output Total 3885 3260 1480 Balance -3842.756 -4024.014 -813.624 Weight 146.5 kg Intake: IV 176 336 115 Piperacillin-Tazobactam 3 100 100 100 .375 gm In Sodium Chloride 0.9% 100 ml @ 25 mls/hr IVPB Q8HR [facility] Rx# :[id number] Sodium Chloride 0.45% 1, 40 000 ml @ 20 mls/hr IV . Q24H [facility] Rx#:[id number] metroNIDAZOLE-NS PMX 500 200 mg In Saline 1 100ml.bag @ 100 mls/hr IVPB Q6HR [facility] Rx#:[id number] pressure bags 36 36 15 Intake, IV Titration 5066.790 9433.986 551.376 Amount Amino Acid 4.25%-D10w 1, 240 000 ml @ 30 mls/hr IV .BY DURATION [facility] Rx#: [id number] Dextrose 5% in Water 1, 90 240 80 000 ml @ 20 mls/hr IV . Q24H [facility] Rx#:[id number] Mvi, Adult No.4 with Vit 90 360 150 K 10 ml Trace (Conc-1Ml/ Dose) 1 ml Sodium Phosphate 6 mmol Calcium Gluconate 1 gm In Amino Acid 4.25%-D10w 1,000 ml @ 30 mls/hr IV .BY DURATION [facility] Rx#: [id number] metroNIDAZOLE-NS PMX 500 100 mg In Saline 1 100ml.bag @ 100 mls/hr IVPB Q6HR [facility] Rx#:[id number] propofoL 1,000 mg In 536.244 599.986 321.376 Empty Bag 1 bag @ Titrate IV .Q0M [facility] Rx#: [id number] Output: Gastric Drainage 50 1300 650 Drainage 60 60 30 Abdomen 60 60 30 Urine 3775 4200 500 Oral Regurgitation 300 Other: Voiding Method Indwelling Catheter Indwelling Catheter Indwelling Catheter ABP, PAP, CO, CI - Last Documented Arterial Blood Pressure 90/59 - Labs CBC & Chem 7: 06/03/21 04:20 06/03/21 04:20 Labs: Abnormal Lab Results - Last 24 Hours (Table) 06/02/21 06/02/21 06/03/21 Range/Units 16:06 20:30 00:00 WBC (3.8-10.6) k/uL RBC (4.30-5.90) m/uL Hgb (13.0-17.5) gm/dL Hct (39.0-53.0) % RDW (11.5-15.5) % Neutrophils # (1.3-7.7) k/uL Lymphocytes # (1.0-4.8) k/uL ABG pH (7.35-7.45) ABG pCO2 (35-45) mmHg ABG pO2 (83-108) mmHg ABG HCO3 (21-25) mmol/L ABG Total CO2 (19-24) mmol/L ABG O2 Saturation (94-97) % Chloride (98-107) mmol/L BUN (9-20) mg/dL POC Glucose (mg/dL) 127 H 117 H 113 H (75-99) mg/dL Calcium (8.4-10.2) mg/dL Total Bilirubin (0.2-1.3) mg/dL Total Protein (6.3-8.2) g/dL Albumin (3.5-5.0) g/dL 06/03/21 06/03/21 06/03/21 Range/Units 04:16 04:20 04:20 WBC 11.7 H (3.8-10.6) k/uL RBC 3.07 L (4.30-5.90) m/uL Hgb 9.1 L (13.0-17.5) gm/dL Hct 28.1 L (39.0-53.0) % RDW 16.5 H (11.5-15.5) % Neutrophils # 10.2 H (1.3-7.7) k/uL Lymphocytes # 0.7 L (1.0-4.8) k/uL ABG pH (7.35-7.45) ABG pCO2 (35-45) mmHg ABG pO2 (83-108) mmHg ABG HCO3 (21-25) mmol/L ABG Total CO2 (19-24) mmol/L ABG O2 Saturation (94-97) % Chloride 111 H (98-107) mmol/L BUN 31 H (9-20) mg/dL POC Glucose (mg/dL) 105 H (75-99) mg/dL Calcium 7.0 L (8.4-10.2) mg/dL Total Bilirubin 1.6 H (0.2-1.3) mg/dL Total Protein 5.5 L (6.3-8.2) g/dL Albumin 2.1 L (3.5-5.0) g/dL 06/03/21 06/03/21 06/03/21 Range/Units 05:45 11:26 11:39 WBC (3.8-10.6) k/uL RBC (4.30-5.90) m/uL Hgb (13.0-17.5) gm/dL Hct (39.0-53.0) % RDW (11.5-15.5) % Neutrophils # (1.3-7.7) k/uL Lymphocytes # (1.0-4.8) k/uL ABG pH 7.48 H 7.48 H (7.35-7.45) ABG pCO2 32 L (35-45) mmHg ABG pO2 66 L 70 L (83-108) mmHg ABG HCO3 26 H (21-25) mmol/L ABG Total CO2 27 H 25 H (19-24) mmol/L ABG O2 Saturation 92.3 L 90.2 L (94-97) % Chloride (98-107) mmol/L BUN (9-20) mg/dL POC Glucose (mg/dL) 117 H (75-99) mg/dL Calcium (8.4-10.2) mg/dL Total Bilirubin (0.2-1.3) mg/dL Total Protein (6.3-8.2) g/dL Albumin (3.5-5.0) g/dL Microbiology - Last 24 Hours (Table) 05/30/21 13:35 Blood Culture - Preliminary Blood No Growth after 72 hours
[2021-06-03] MEDS: ANIDULAFUNGIN 100 MG in SODIUM CHLORIDE 0.9% 100 ML IVPB SCH (14:05)
--- NOTE | 2021-06-03 16:19 | PN ---
PROGRESS NOTE DATE OF SERVICE: 06/03/2021 This 41-year-old gentleman admitted with acute abdominal pain with acute perforation also had features of Covid 19 pneumonia. The patient also had sepsis with multiple organisms including Keke albicans in the sputum and anaerobic gram-negative bacilli in the culture and E coli and Keke albicans in the wound. The patient being closely monitored. The patient on IV antibiotics as well as antifungals and the patient also has some ileus. The patient is being closely monitored at this time. Multiple consultants are following the patient closely. Past medical history reviewed. REVIEW OF SYSTEMS: Could not be taken. CURRENT MEDICATIONS: Reviewed and include: Peridex, dexamethasone, Lovenox, Dilaudid. Doses and other medications reviewed. PHYSICAL EXAMINATION: The patient is mechanically sedated. Pulse is 79, blood pressure 101/67, respiration 24, temperature 98 degrees, pulse ox 94% on 40% FiO2. HEENT: Conjunctivae normal. Neck: No JVD. Cardiovascular: S1, S2 muffled. Breath sounds diminished in the bases. A few scattered rhonchi and crackles. Abdomen: Soft. Status post surgery. Legs are no edema. No swelling. Nervous system: No focal deficits. LABORATORY DATA: WBC 11.7, hemoglobin 9.1. Otherwise glucose is noted 117. Cultures are noted. ASSESSMENT: 1. Acute abdominal pain with possible acute perforation abscess with possible sepsis, present on admission, status post exploratory laparotomy and ileocolectomy as well as washout with peritoneal abscess and peritonitis. 2. E coli with Keke albicans from the wound. 3. Possible Keke albicans in pneumonia. 4. Acute hypoxic respiratory failure on mechanical ventilation. 5. Atrial fibrillation, fast ventricular rate, paroxysmal. 6. Acute Covid 19 infection, possible bibasilar pneumonia. 7. Hyponatremia. 8. Hypokalemia. 9. Elevated D-dimer without any evidence of acute pulmonary embolism, possibly secondary to sepsis. 10.Increased creatinine with acute renal failure with acute tubular necrosis. 11.Leukopenia. 12.Increased WBC. 13.History of hernia repair. 14.History of nicotine dependence. 15.Obesity with body mass index of 41.6. 16.Hypoalbuminemia, rule out chronic liver disease. 17.FULL CODE. RECOMMENDATIONS AND DISCUSSION: Recommend to continue current medications, management and symptomatic treatment. Continue antibiotics, antifungals, mechanical ventilation. Closely follow with surgery. Overall prognosis extremely guarded because of multiple complex medical issues. Further recommendation to follow. MMODL / IJN: [id number] / LATISHA
[2021-06-03 18:17] LABS: Glucose,Whole Blood 121 mg/dL (75-99)
--- NOTE | 2021-06-03 21:00 | PN ---
PROGRESS NOTE DATE OF SERVICE: 06/03/2021 REASON FOR FOLLOWUP: Abdominal abscess. INTERVAL HISTORY: The patient is afebrile. The patient is hemodynamically stable, off the pressor support. FiO2 is currently at 40%. No significant purulent secretions through the ET, diarrhea or any other changes reported by the nursing staff. PHYSICAL EXAMINATION: Blood pressure 105/66, pulse of 74, temperature 98.7. He is 96% on 40% FiO2. General description is a middle-aged male lying in bed in no distress. Respiratory system: Unlabored breathing, decreased intensity of breath sounds. No wheeze. Heart S1, S2. Regular rate and rhythm. Abdomen soft, no tenderness. LABS: Hemoglobin is 9.1, white count 11.7, creatinine 0.89. DIAGNOSTIC IMPRESSION AND PLAN: Patient with abdominal abscess, status post laparotomy and drainage of the abscess. Culture positive for E coli, anaerobes and Keke albicans. Patient is covered with Eraxis and Zosyn; to continue while monitoring his clinical course closely. Continue with supportive care. MMODL / IJN: [id number] /
[2021-06-03 23:35] LABS: Glucose,Whole Blood 100 mg/dL (75-99)
[2021-06-03] MEDS: [UNRECOGNIZED DRUG - REMARK] IV SCH ×14 (23:41→23:44)
[2021-06-04] MEDS: HYDROmorphone 1 MG/ML 1 ML SYRINGE IVP PRN ×2 (04:33→12:23)
[2021-06-04 05:26] LABS: Anisocytosis Slight; Basophils % (A) 0 %; Eosinophils # (A) 0.1 k/uL (0-0.7); Eosinophils % (A) 1 %; HCT 28.6 % (39.0-53.0); HGB 9.2 gm/dL (13.0-17.5); Hypochromasia Slight; Lymphocytes % (A) 7 %; MCH 29.3 pg (25.0-35.0); MCHC 32.3 g/dL (31.0-37.0); MCV 90.5 fL (80.0-100.0); Mean Platelet Volume 8.6; Monocytes # (A) 0.9 k/uL (0-1.0); Monocytes % (A) 7 %; Neutrophils # (A) 11.5 k/uL (1.3-7.7); Neutrophils % (A) 84 %; Platelet Count 321 k/uL (150-450); RBC 3.16 m/uL (4.30-5.90); RDW 16.7 % (11.5-15.5); WBC 13.7 k/uL (3.8-10.6)
[2021-06-04 05:54] LABS: Glucose,Whole Blood 100 mg/dL (75-99)
[2021-06-04 05:58] LABS: ABG Base Excess 1.5 mmol/L; ABG HCO3 25 mmol/L (21-25); ABG Oxygen Saturation 96.2 % (94-97); ABG PCO2 34 mmHg (35-45); ABG PH 7.47 (7.35-7.45); ABG PO2 96 mmHg (83-108); ABG TCO2 26 mmol/L (19-24)
[2021-06-04 06:00] LABS: Allen Test Performed? NO
[2021-06-04 06:08] LABS: African American GFR (CKD) >90 (>60 ml/min/1.73 sqM); Anion Gap 5 mmol/L; Blood Urea Nitrogen 27 mg/dL (9-20); Calcium 7.2 mg/dL (8.4-10.2); Carbon Dioxide 22 mmol/L (22-30); Chloride 109 mmol/L (98-107); Glucose 95 mg/dL (74-99); Magnesium 1.9 mg/dL (1.6-2.3); Non-African American GFR(CKD) >90 (>60 ml/min/1.73 sqM); Phosphorus 3.2 mg/dL (2.5-4.5); Potassium 3.5 mmol/L (3.5-5.1); Sodium 136 mmol/L (137-145)
[2021-06-04] MEDS ORDERED: Potassium Replacement Protocol 1 EACH MISC MISCELLANE PRN (06:13)
[2021-06-04] MEDS: INSULIN ASPART (NovoLOG) 100 UNIT/ML VIAL SQ SCH ×3 (06:19→18:34)
[2021-06-04] MEDS: metroNIDAZOLE-NS PMX 500 MG in SALINE 1 100ML.BAG IVPB SCH ×4 (06:22→23:23)
[2021-06-04] MEDS: POTASSIUM CHLORIDE 20 MEQ in WATER FOR INJECTION 1 100ML.BAG IVPB SCH ×2 (06:39→09:28)
--- NOTE | 2021-06-04 06:49 | XR ---
EXAMINATION TYPE: XR chest 1V portable DATE OF EXAM: 06/04/2021 CLINICAL HISTORY: Difficulty breathing progress study. TECHNIQUE: Single AP portable semiupright view of the chest is obtained. COMPARISON: Chest x-ray from one day earlier and older studies. FINDINGS: Stable endotracheal and orogastric tubes. Stable left internal jugular central venous cath eter. Persistent low lung volumes with elevated right hemidiaphragm. Diminished inspiration on current stud y. Persistent bilateral increased opacities. Cardiac silhouette size is stable and within normal banerjee its. Osseous structures are intact. IMPRESSION: Low lung volumes with elevated right hemidiaphragm and bilateral increased opacities cons istent with covid-19 infection and/or pulmonary edema are redemonstrated. No significant change from one day earlier.
[2021-06-04] MEDS: PANTOPRAZOLE 40 MG/10 ML VIAL IVP SCH ×2 (09:19→20:12)
[2021-06-04] MEDS: CHLORHEXIDINE GLUCONATE 15 ML CUP MUCOUS MEM SCH ×2 (09:19→19:41)
[2021-06-04] MEDS: DEXAMETHASONE SOD PHOSPHATE 10 MG/ML 1 ML VIAL IVP SCH (09:28)
[2021-06-04] MEDS: PIPERACILLIN-TAZOBACTAM 3.375 GM in SODIUM CHLORIDE 0.9% 100 ML IVPB SCH ×3 (09:28→23:23)
[2021-06-04] MEDS: ENOXAPARIN 40 MG/0.4 ML SYRINGE SQ SCH (09:28)
[2021-06-04] MEDS: METOPROLOL TARTRATE 25 MG TAB PO SCH (09:55)
[2021-06-04] MEDS: NOREPINEPHRINE 4 MG in SODIUM CHLORIDE 0.9% 250 ML IV SCH (09:55)
[2021-06-04] MEDS: DILTIAZEM 125 MG in SODIUM CHLORIDE 0.9% 100 ML IV SCH (09:56)
[2021-06-04] MEDS: SODIUM CHLORIDE 0.9% 1,000 ML IV SCH (09:56)
--- NOTE | 2021-06-04 10:15 | P.PN ---
Subjective Progress Note Date: 06/04/21 On 05/30/2021 patient seen in follow-up in the intensive care unit, today is postoperative day #3 status post right colectomy, resection of terminal ileum and end-to-end anastomosis for inflammatory bowel disease with abscess formation and perforation. Patient remains intubated, sedated on assist control mode of ventilation with a rate of 24, tidal volumes 500, FiO2 of 80% and PEEP of 10, today's blood gas shows pO2 66 pCO2 37, and pH of 7.37 this was done on 80% FiO2 and subsequently fio2 has been dropped down to 70%. Chest x-ray today shows low lung volumes with elevated right hemidiaphragm and bilateral multifocal increased opacities consistent with COVID-19 infection. Patient was tested again via rapid COVID-19 PCR test and was found to be positive on 05/27/2021. Current drips include 0.9 at 75 ML per hour, Diprivan is a 50 mics per kilo per minute, Cardizem drip is at 20 mg per hour, amiodarone drip 0.5 mg/m, and norepinephrine drip has been weaned off, patient is on TPN at 70 ML per hour, antibiotics including Zosyn and Flagyl. Abdominal wound cultures were positive for E. coli and Keke. Urine culture is been sent, and remains negative thus far, blood cultures have been negative. he has been afebrile overnight, with T-max of 101.9F. Today's blood work reviewed showing a white blood cell count of 5.2, hemoglobin of 7.9, sodium is 147, potassium is 4.0, chloride is 120, CO2 is 18, BUN is 32, and creatinine is 1.13. Urine output is in the order of 100-125 ML per hour. He is currently in sinus mechanism with a rate of 93 BPM. Abdominal incision is clean dry and intact, Bowel sounds are hypoactive. On 05/31/2021 patient seen in follow-up in intensive care unit. Today's postoperative day #4, status post right colectomy, resection of terminal ileum and end-to-end anastomosis for inflammatory bowel disease with abscess formation and perforation. He remains intubated, he is on volume assist control mode of ventilation, with a rate of 24, tidal volume is 500, FiO2 of 70% and PEEP of 10, this morning's blood gas shows pO2 of 54, pCO2 of 39, and pH of 7.31. Today's chest x-ray showed low lung volumes, elevated right hemidiaphragm and bilateral multifocal increased opacities consistent with COVID-19 infection, no significant change from one day earlier. Patient remains on 0.45 at a rate of 150 ML per hour, TPN is a 70 ML per hour, Diprivan is a 75 mics per kilo per minute, and amiodarone drip is at 0.5 mg/m. Today's labs have been reviewed, white blood cell count is 8.2, hemoglobin is 7.9, sodium is improving and is down to 146, chloride is 119, CO2 is 16, B1 is 32, creatinine is 1.01. Abdominal wound cultures were positive for E. coli and Keke and anaerobic gram-negative bacilli. Urine cultures have been negative, sputum Gram stain sh owed few PMNs, few budding his, rare gram-positive cocci. Not requiring any vasopressor support, urine output is in the order of 70-150 ML per hour. Heart rate is controlled. Remains in sinus mechanism. Remains on Eraxis, Flagyl, and Zosyn. He is on Protonix for GI prophylaxis, and Lovenox 40 mg daily for DVT prophylaxis. Abdominal incisions clean dry and intact, bowel sounds are hypoactive. On 06/01/2021 patient seen in follow-up in intensive care unit, he remains sedated, intubated on mechanical ventilator, on assist-control mode of ventilation with a rate of 24, tidal volume 500, FiO2 of 60% and PEEP of 15. This point his blood gas shows pO2 of 65, pCO2 36, pH of 7.37 this was done on the above-mentioned vent settings and FiO2 of 60%, his pulse ox is 97-98%, FiO2 has been dropped down to 50%. Today's chest x-ray shows hypoventilatory changes interstitial prominence that could be due to vascular crowding or mild pulmonary vascular congestion, mild patchy bibasilar opacities likely related to atelectasis, He is hemodynamically stable. He is currently on 0.9 normal saline at 10 ML per hour, his IV fluids 0.45 at 150 ML per hour, Diprivan is a 75 mics per kilo per minute, amiodarone is at 0.5 mg/m. No vasopressor support. Urine output is in the order of 75-100 ML per hour. Patient is generally fluid overloaded, he is in over 10 kg positive net fluid balance over the last several days. He remains on TPN furniture no support, bowel sounds are extremely hypoactive. Abdominal incision is clean dry and intact, ADRIAN drain is compressed and draining and there is been 20 mL of serous output in the last 24 hours. Today's labs have been reviewed showing white blood cell count of 8.0, hemoglobin of 7.6, sodium is 143, potassium is 4.8, chloride is 121, CO2 is 17, BUN is 28, creatinine 0.81. Total bilirubin is improving and is down to 1.5, his LFTs are also improved. His abdominal wound culture positive for E. coli and Keke and anaerobic gram negative bacilli, final cultures pending, urine sputum and blood cultures have been negative. No fever overnight.Remains on Eraxis, Flagyl, and Zosyn. He is on Protonix for GI prophylaxis, and Lovenox 40 mg daily for DVT prophylaxis. On 06/02/2021 patient seen in follow-up in intensive care unit, he remains intubated, sedated, on assist-control mode of ventilation with a rate of 24, tidal volume is 500, FiO2 of 50% and PEEP was dropped down to 12 from 15 yesterday. This morning's blood gas shows pO2 of 64, pCO2 36, and pH of 7.41 this was done on above-mentioned vent settings, today's chest x-ray has been r eviewed, and ET tube was 7.3 cm from the jossie, and ET tube will be advanced 2 cm, there was increasing moderate right pleural effusion with adjacent atelectasis and/or consolidation, and continued patchy opacity at the left base with suspected background pulmonary vascular congestion. No fevers overnight, patient is hemodynamically stable, no vasopressor support for last 48 hours, yesterday returned his fluids down to KVO, and patient received a dose of IV Lasix 40 mg times one, he is in -1.8 L net fluid balance over the last 24 hours, however he is still insignificantly positive net fluid balance of at least 10 kg since admission. He appears to be quite fluid overloaded with a generalized edema. He has remained in sinus mechanism. Has been no recurrence of A. fib with RVR, he remains on amiodarone drip at 0.5 mg/m, he is on D5W at a rate of 20 ML per hour, TPN is at 30 ML per hour, Diprivan is a 75 mics per kilo per minute, no other drips. Today's labs have been reviewed showing white blood cell count of 12.5, hemoglobin of 8.7, sodium is 142, potassium is 4.6, chloride is 116, CO2 is 18, BUN is 30, creatinine 0.87, LFTs are improved, total bilirubin is down to 1.7, liver ultrasound has been completed showing slightly heterogeneous parenchyma and subtle contour nodularity, correlate for underlying cirrhosis, no gross abnormality of the gallbladder, no biliary ductal dilation. His mid abdominal incision covered with a surgical dressing, however there is some drainage from the distal end of the incision, there are gerald in place, and there is packing of the distal end of the abdominal wound, ADRIAN drain is compressed and draining small amount of serous fluid. Bowel sounds are more active on today's exam, however patient has not passed any gas or stool. On 06/03/2021 patient follow-up in the intensive care unit, he remains sedated and intubated, patient is currently on assist control mode of ventilation with a rate of 24, tidal vitamins 500, FiO2 of 40% and PEEP of 8. This morning his blood gases shows pO2 of 66, pCO2 of 35, a pH of 7.48, this was done on the above-mentioned vent settings. His pulse ox is 97%. His chest x-ray shows small to moderate subpulmonic right pleural fluid, improving bibasilar infiltrates. Patient was given 2 more doses of IV Lasix yesterday, he has massively diuresed, he is in -6.7 L net fluid balance over the last 24 hours, generalized edema has significantly improved, not requiring any vasopressor support, he remains in sinus mechanism, there has been no recurrence of atrial fibrillation, amiodarone drip has been discontinued, his been afebrile overnight, IV drips include Diprivan is a 75 mics per kilo per minute, 0.9 and 20 ML per hour, and TPN is a 30 ML per hour, according to the nursing staff patient had a bowel movement last night, bowel sounds are hypoactive. Abdominal incisions clean dry, and the distal portion of the incision is draining less serous fluid, ADRIAN drain is compressed and draining, minimal output. Abdomen is a little less distended, and there is less weeping out of his upper extremities. Vital signs have been stable overnight, today's labs have been reviewed, white blood cell, slightly improved and is down to 11.7, hemoglobin is 9.1, sodium is 138, potassium 3.9, chloride is 111, B1 is 31 creatinine 0.89. Yesterday patient was given a sedation holiday according to the nursing staff he did wake up and did follow commands appropriately. the patient is seen today 11/02/2021 in follow-up in the intensive care unit. He remains intubated, sedated and on the mechanical ventilator. Presently in volume assist control mode with a rate of 24, tidal volume 500, FiO2 40% and a PEEP of 5. Arterial blood gases reveal a P O2 of 96, pCO2 34, pH 7.47. He remains on propofol at 70 mcg/kg/m. D5W at 10 MLS per hour. 0.9 normal saline at 10 MLS per hour. Receiving TPN at 30 MLS per hour. as x-ray continues to reveal evidence of low lung volumes with elevated right hemidiaphragm and bilateral increased opacities consistent with COVID-19 infection/pulmonary edema. No significant change compared to yesterday. white count 13.7. Hemoglobin 9.2. Sodium 136. Potassium 3.5. Creatinine 0.80. Blood glucose 100.He is continued on Zosyn, metronidazole, Eraxis. Wound culture was positive for Keke and E. coli. Sputum culture positive for Keke. Follow-up blood cultures revealing no growth thus far.He is continued on Decadron, Lovenox. He is currently in a -1.5 L balance. The plan is to give him a daily interruption of sedation and spontaneous breathing trial this morning. Objective - Vital Signs Vital signs: Vital Signs Temp 98.9 F 06/04/21 08:00 Pulse 85 06/04/21 10:00 Resp 24 06/04/21 10:00 BP 125/64 06/03/21 13:00 Pulse Ox 93 L 06/04/21 10:00 Intake & Output 06/03/21 06/04/21 06/04/21 18:59 06:59 18:59 Intake Total 1297.376 586 382 Output Total 1999 1365 590 Balance -702.624 -779 -208 Weight 146.5 kg Intake: IV 136 256 182 0.9 Carrier 50 Piperacillin-Tazobactam 3 100 100 .375 gm In Sodium Chloride 0.9% 100 ml @ 25 mls/hr IVPB Q8HR [facility] Rx# :[id number] Sodium Chloride 0.45% 1, 220 20 000 ml @ 20 mls/hr IV . Q24H [facility] Rx#:[id number] pressure bags 36 36 12 Intake, IV Titration 1161.376 330 200 Amount Dextrose 5% in Water 1, 80 000 ml @ 20 mls/hr IV . Q24H [facility] Rx#:[id number] Mvi, Adult No.4 with Vit 360 30 K 10 ml Trace (Conc-1Ml/ Dose) 1 ml Sodium Phosphate 6 mmol Calcium Gluconate 1 gm In Amino Acid 4.25%-D10w 1,000 ml @ 30 mls/hr IV .BY DURATION [facility] Rx#: [id number] Potassium Chloride 20 meq 100 In Water For Injection 1 100ml.bag @ 50 mls/hr IVPB Q2H [facility] Rx#: [id number] metroNIDAZOLE-NS PMX 500 100 mg In Saline 1 100ml.bag @ 100 mls/hr IVPB Q6HR [facility] Rx#:[id number] propofoL 1,000 mg In 621.376 300 100 Empty Bag 1 bag @ Titrate IV .Q0M [facility] Rx#: [id number] Output: Gastric Drainage 650 400 300 Drainage 30 Abdomen 30 Urine 1020 965 290 Oral Regurgitation 300 Other: Voiding Method Indwelling Catheter Indwelling Catheter ABP, PAP, CO, CI - Last Documented Arterial Blood Pressure 120/63 - Exam GENERAL EXAM: Intubated, sedated, 41-year-old male patient, on volume assist- control mode of ventilation with FiO2 of 40%, and PEEP of 5, comfortable in no apparent distress. HEAD: Normocephalic/atraumatic. EYES: Sluggish reaction of pupils, equal size. Conjunctiva pink, sclera white. NOSE: Clear with pink turbinates. THROAT: No erythema or exudates. NECK: No masses, no JVD, no thyroid enlargement, no adenopathy. CHEST: No chest wall deformity. Symmetrical expansion. LUNGS: Equal air entry with crackles in the bilateral bases. CVS: Regular rate and rhythm, normal S1 and S2, no gallops, no murmurs, no rubs ABDOMEN: Soft, nontender. No hepatosplenomegaly, normal bowel sounds, no guarding or rigidity. Abdominal incision is clean dry and intact, right lower quadrant ADRIAN drain with small amount of serosanguineous material, ADRIAN drain is compressed and draining. EXTREMITIES: No clubbing, mild generalized edema and edema involving upper and lower extremities, nonpitting. no cyanosis, 2+ pulses and upper and lower extremities. MUSCULOSKELETAL: Muscle strength and tone normal. SPINE: No scoliosis or deformity SKIN: No rashes CENTRAL NERVOUS SYSTEM: Sedated, intubated No focal deficits, tone is normal in all 4 extremities. - Labs CBC & Chem 7: 06/04/21 04:50 06/04/21 04:50 Labs: Abnormal Lab Results - Last 24 Hours (Table) 06/03/21 06/03/21 06/03/21 Range/Units 11:26 11:39 18:15 WBC (3.8-10.6) k/uL RBC (4.30-5.90) m/uL Hgb (13.0-17.5) gm/dL Hct (39.0-53.0) % RDW (11.5-15.5) % Neutrophils # (1.3-7.7) k/uL ABG pH 7.48 H (7.35-7.45) ABG pCO2 32 L (35-45) mmHg ABG pO2 60 L (83-108) mmHg ABG Total CO2 25 H (19-24) mmol/L ABG O2 Saturation 90.2 L (94-97) % Sodium (137-145) mmol/L Chloride (98-107) mmol/L BUN (9-20) mg/dL POC Glucose (mg/dL) 117 H 121 H (75-99) mg/dL Calcium (8.4-10.2) mg/dL 06/03/21 06/04/21 06/04/21 Range/Units 23:31 04:50 04:50 WBC 13.7 H (3.8-10.6) k/uL RBC 3.16 L (4.30-5.90) m/uL Hgb 9.2 L (13.0-17.5) gm/dL Hct 28.6 L (39.0-53.0) % RDW 16.7 H (11.5-15.5) % Neutrophils # 11.5 H (1.3-7.7) k/uL ABG pH (7.35-7.45) ABG pCO2 (35-45) mmHg ABG pO2 (83-108) mmHg ABG Total CO2 (19-24) mmol/L ABG O2 Saturation (94-97) % Sodium 136 L (137-145) mmol/L Chloride 109 H (98-107) mmol/L BUN 27 H (9-20) mg/dL POC Glucose (mg/dL) 100 H (75-99) mg/dL Calcium 7.2 L (8.4-10.2) mg/dL 06/04/21 06/04/21 Range/Units 05:51 05:53 WBC (3.8-10.6) k/uL RBC (4.30-5.90) m/uL Hgb (13.0-17.5) gm/dL Hct (39.0-53.0) % RDW (11.5-15.5) % Neutrophils # (1.3-7.7) k/uL ABG pH 7.47 H (7.35-7.45) ABG pCO2 34 L (35-45) mmHg ABG pO2 (83-108) mmHg ABG Total CO2 26 H (19-24) mmol/L ABG O2 Saturation (94-97) % Sodium (137-145) mmol/L Chloride (98-107) mmol/L BUN (9-20) mg/dL POC Glucose (mg/dL) 100 H (75-99) mg/dL Calcium (8.4-10.2) mg/dL Microbiology - Last 24 Hours (Table) 05/30/21 13:35 Blood Culture - Preliminary Blood No Growth after 96 hours Assessment and Plan Assessment: 1 Acute abdomen related to inflammatory bowel disease involving the terminal ileum with abscess formation and perforation with pneumoperitoneum, status post surgical resection of the terminal ileum of the colon, ileocolectomy and colectomy of the right colon, on 05/28/2021. 2 Acute hypoxic respiratory failure, related to acute abdominal sepsis, and acute COVID-19 related pneumonia, improved, FiO2 is currently down to 40%, and a PEEP of 8. There is a possibility of right hemidiaphragm elevation, possible right hemidiaphragm paralysis 3 Atrial fibrillation with RVR, currently in sinus mechanism. Remains on IV amiodarone, Cardizem has been discontinued 4 Fever related to acute abdominal sepsis, improved and recovered 5 Hyponatremia, improved, and patient now has hypernatremia related to free water deficit, patient was fluid resuscitated, currently serum sodium is 138 6 Acute kidney injury, renal function has improved 7 Acute lactic acidosis, improved, anion gap acidosis has resolved 8 Leukocytosis, improved 9 Anemia, possibly dilutional, improved with IV diuretics. Plan: The patient was seen and evaluated today Chest x-ray, ABGs and labs reviewed Continues on Zosyn, Flagyl, Eraxis Continue TPN for nutritional support We'll plan for daily interruption of sedation We'll plan for spontaneous breathing trials with a pressure support of 5 and a PEEP of 5 We will continue to follow and make further recommendations based on his clinical status Critical care time 38 minutes I, the cosigning physician, performed a history & physical examination of the patient. Lungs sounds crackles in the posterior bases. Maintaining good O2 saturations in the 90s on40% FiO2 and a PEEP of 5 via the mechanical ventilator. I discussed the assessment and plan of care with my nurse practitioner, Nevaeh Piña. I attest to the above note as dictated by her.
--- NOTE | 2021-06-04 11:48 | P.PN ---
Subjective Progress Note Date: 06/04/21 Principal diagnosis: Crohn's abscess Patient remains on the ventilator. Plans are for possible extubation today. His oral gastric tube was switched over to a nasogastric tube. White blood cell count 13.7, hemoglobin 9.2. ADRIAN drain mostly serous. Objective - Vital Signs Vital signs: Vital Signs Temp 98.9 F 06/04/21 08:00 Pulse 87 06/04/21 11:00 Resp 29 H 06/04/21 11:00 BP 125/64 06/03/21 13:00 Pulse Ox 92 L 06/04/21 11:00 Intake & Output 06/03/21 06/04/21 06/04/21 18:59 06:59 18:59 Intake Total 1297.376 586 482.000 Output Total 1999 1365 590 Balance -702.624 -779 -108.000 Weight 146.5 kg Intake: IV 136 256 182 0.9 Carrier 50 Piperacillin-Tazobactam 3 100 100 .375 gm In Sodium Chloride 0.9% 100 ml @ 25 mls/hr IVPB Q8HR [facility] Rx# :[id number] Sodium Chloride 0.45% 1, 220 20 000 ml @ 20 mls/hr IV . Q24H [facility] Rx#:[id number] pressure bags 36 36 12 Intake, IV Titration 1161.376 330 300.000 Amount Dextrose 5% in Water 1, 80 000 ml @ 20 mls/hr IV . Q24H [facility] Rx#:[id number] Mvi, Adult No.4 with Vit 360 30 K 10 ml Trace (Conc-1Ml/ Dose) 1 ml Sodium Phosphate 6 mmol Calcium Gluconate 1 gm In Amino Acid 4.25%-D10w 1,000 ml @ 30 mls/hr IV .BY DURATION [facility] Rx#: [id number] Potassium Chloride 20 meq 100 In Water For Injection 1 100ml.bag @ 50 mls/hr IVPB Q2H [facility] Rx#: [id number] metroNIDAZOLE-NS PMX 500 100 mg In Saline 1 100ml.bag @ 100 mls/hr IVPB Q6HR [facility] Rx#:[id number] propofoL 1,000 mg In 621.376 300 200.000 Empty Bag 1 bag @ Titrate IV .Q0M [facility] Rx#: [id number] Output: Gastric Drainage 650 400 300 Drainage 30 Abdomen 30 Urine 1020 965 290 Oral Regurgitation 300 Other: Voiding Method Indwelling Catheter Indwelling Catheter Indwelling Catheter ABP, PAP, CO, CI - Last Documented Arterial Blood Pressure 163/77 - Exam Abdomen: Soft, mild distention, mild tenderness, dressing clean and dry - Labs CBC & Chem 7: 06/04/21 04:50 06/04/21 04:50 Labs: Abnormal Lab Results - Last 24 Hours (Table) 06/03/21 06/03/21 06/03/21 Range/Units 11:39 18:15 23:31 WBC (3.8-10.6) k/uL RBC (4.30-5.90) m/uL Hgb (13.0-17.5) gm/dL Hct (39.0-53.0) % RDW (11.5-15.5) % Neutrophils # (1.3-7.7) k/uL ABG pH 7.48 H (7.35-7.45) ABG pCO2 32 L (35-45) mmHg ABG pO2 60 L (83-108) mmHg ABG Total CO2 25 H (19-24) mmol/L ABG O2 Saturation 90.2 L (94-97) % Sodium (137-145) mmol/L Chloride (98-107) mmol/L BUN (9-20) mg/dL POC Glucose (mg/dL) 121 H 100 H (75-99) mg/dL Calcium (8.4-10.2) mg/dL 06/04/21 06/04/21 06/04/21 Range/Units 04:50 04:50 05:51 WBC 13.7 H (3.8-10.6) k/uL RBC 3.16 L (4.30-5.90) m/uL Hgb 9.2 L (13.0-17.5) gm/dL Hct 28.6 L (39.0-53.0) % RDW 16.7 H (11.5-15.5) % Neutrophils # 11.5 H (1.3-7.7) k/uL ABG pH 7.47 H (7.35-7.45) ABG pCO2 34 L (35-45) mmHg ABG pO2 (83-108) mmHg ABG Total CO2 26 H (19-24) mmol/L ABG O2 Saturation (94-97) % Sodium 136 L (137-145) mmol/L Chloride 109 H (98-107) mmol/L BUN 27 H (9-20) mg/dL POC Glucose (mg/dL) (75-99) mg/dL Calcium 7.2 L (8.4-10.2) mg/dL 06/04/21 Range/Units 05:53 WBC (3.8-10.6) k/uL RBC (4.30-5.90) m/uL Hgb (13.0-17.5) gm/dL Hct (39.0-53.0) % RDW (11.5-15.5) % Neutrophils # (1.3-7.7) k/uL ABG pH (7.35-7.45) ABG pCO2 (35-45) mmHg ABG pO2 (83-108) mmHg ABG Total CO2 (19-24) mmol/L ABG O2 Saturation (94-97) % Sodium (137-145) mmol/L Chloride (98-107) mmol/L BUN (9-20) mg/dL POC Glucose (mg/dL) 100 H (75-99) mg/dL Calcium (8.4-10.2) mg/dL Microbiology - Last 24 Hours (Table) 05/30/21 13:35 Blood Culture - Preliminary Blood No Growth after 96 hours Assessment and Plan (1) Pneumoperitoneum Narrative/Plan: Patient clinically improving. Hopefully he'll be extubated today. Keep nasogastric tube to suction for now. Continue antibiotics and supportive care. Current Visit: Yes Status: Acute Code(s): K66.8 - OTHER SPECIFIED DISORDERS OF PERITONEUM SNOMED Code(s): 49769454
[2021-06-04 11:53] LABS: Glucose,Whole Blood 115 mg/dL (75-99)
--- NOTE | 2021-06-04 12:01 | XR ---
EXAMINATION TYPE: XR chest 1V portable DATE OF EXAM: 06/04/2021 CLINICAL HISTORY: NG tube placement. TECHNIQUE: Single AP portable semiupright view of the chest is obtained. COMPARISON: Chest x-ray from earlier today an older studies FINDINGS: Stable positioned endotracheal and orogastric tubes. Stable left internal jugular central venous catheter. Persistent low lung volumes with elevated right hemidiaphragm. Persistent bilateral increased opaci ties. Cardiac silhouette size is stable and within normal limits. Osseous structures are intact. IMPRESSION: Low lung volumes with elevated right hemidiaphragm and bilateral increased opacities cons istent with covid-19 infection and/or pulmonary edema are redemonstrated. No significant change from earlier today.
[2021-06-04] MEDS: ANIDULAFUNGIN 100 MG in SODIUM CHLORIDE 0.9% 100 ML IVPB SCH (15:25)
--- NOTE | 2021-06-04 17:50 | PN ---
PROGRESS NOTE DATE OF SERVICE: 06/04/2021 REASON FOR FOLLOWUP: Abdominal sepsis. INTERVAL HISTORY: The patient is afebrile. The patient has been extubated. The patient is currently breathing comfortably on nasal cannula oxygen. Denies having any chest pain, shortness of breath or cough. Abdominal pain is currently controlled. No vomiting or diarrhea reported by nursing staff. PHYSICAL EXAMINATION: Blood pressure 128/68 with a pulse of 77, temperature 98.4. He is 93% on 4 L nasal cannula. General description is a middle-aged male lying in bed in no distress. Respiratory system: Unlabored breathing, decreased intensity of breath sounds. No wheeze. Heart S1, S2. Regular rate and rhythm. Abdomen soft, mildly distended. No guarding or rigidity. LABS: Hemoglobin is 9.8, white count 13.7, creatinine 0.80. DIAGNOSTIC IMPRESSION AND PLAN: Patient with abdominal abscess, status post drainage. Culture with an E coli, anaerobes and Keke albicans. Patient is broadly covered with Eraxis and Zosyn; to continue while monitoring his clinical course closely. Continue with supportive care. MMODL / IJN: [id number] /
[2021-06-04 17:51] LABS: Glucose,Whole Blood 126 mg/dL (75-99)
[2021-06-04] MEDS: ONDANSETRON 4 MG/2 ML VIAL IVP PRN (20:12)
[2021-06-04] MEDS: [UNRECOGNIZED DRUG - REMARK] IV SCH ×7 (22:42)
[2021-06-04] MEDS: HYDROmorphone 0.5 MG/0.5 ML SYRINGE IVP PRN (22:43)
[2021-06-04] MEDS ORDERED: LORazepam 2 MG/ML INJ IV PRN (23:12)
[2021-06-04 23:21] LABS: Glucose,Whole Blood 99 mg/dL (75-99)
--- NOTE | 2021-06-05 00:15 | P.PN ---
Subjective This is a pleasant 41 years old male with history of Crohn's disease presents on 05/25 for abdominal pain. Found to have mechanical bowel obstruction with pneumoperitoneum, he underwent exploratory laparotomy by surgery team with ileocolectomy for inflamed right colon and ileum and right lower quadrant abdominal abscess status post washout. He has positive wound culture for E. coli and Keke and sputum culture positive for Keke as well and positive and anaerobic culture and is being covered with IV Flagyl, Zosyn and eraxis , with ID team on the case. Also patient is intubated for acute hypoxic respiratory failure secondary to his intra-abdominal sepsis and Covid bilateral pneumonia. However his PEEP is 5 and FiO2 40% and patient is expected to be extubated soon. Pulmonary/critical care team on the case. Remains on dexamethasone, vitamin C, D and zinc. Chest x-ray showing bilateral Covid pneumonia, no significant change. Liver ultrasound showing possible cirrhosis also he has A. fib with rate controlled now Labs show WBC 13.7, hemoglobin 9.2, d-dimer 9.2. Objective - Vital Signs Vital signs: Vital Signs Temp 98.9 F 06/04/21 12:00 Pulse 88 06/04/21 12:00 Resp 25 H 06/04/21 12:00 BP 125/64 06/03/21 13:00 Pulse Ox 90 L 06/04/21 12:00 Intake & Output 06/03/21 06/04/21 06/04/21 18:59 06:59 18:59 Intake Total 1297.376 586 590.637 Output Total 1999 1365 915 Balance -702.624 -779 -324.363 Weight 146.5 kg Intake: IV 136 256 288 0.9 Carrier 50 Piperacillin-Tazobactam 3 100 100 .375 gm In Sodium Chloride 0.9% 100 ml @ 25 mls/hr IVPB Q8HR [facility] Rx# :[id number] Sodium Chloride 0.45% 1, 220 20 000 ml @ 20 mls/hr IV . Q24H [facility] Rx#:[id number] metroNIDAZOLE-NS PMX 500 100 mg In Saline 1 100ml.bag @ 100 mls/hr IVPB Q6HR [facility] Rx#:[id number] pressure bags 36 36 18 Intake, IV Titration 1161.376 330 302.637 Amount Dextrose 5% in Water 1, 80 000 ml @ 20 mls/hr IV . Q24H [facility] Rx#:[id number] Mvi, Adult No.4 with Vit 360 30 K 10 ml Trace (Conc-1Ml/ Dose) 1 ml Sodium Phosphate 6 mmol Calcium Gluconate 1 gm In Amino Acid 4.25%-D10w 1,000 ml @ 30 mls/hr IV .BY DURATION [facility] Rx#: [id number] Potassium Chloride 20 meq 100 In Water For Injection 1 100ml.bag @ 50 mls/hr IVPB Q2H [facility] Rx#: [id number] metroNIDAZOLE-NS PMX 500 100 mg In Saline 1 100ml.bag @ 100 mls/hr IVPB Q6HR [facility] Rx#:[id number] propofoL 1,000 mg In 621.376 300 202.637 Empty Bag 1 bag @ Titrate IV .Q0M [facility] Rx#: [id number] Output: Gastric Drainage 650 400 400 Drainage 30 Abdomen 30 Urine 1020 965 515 Oral Regurgitation 300 Other: Voiding Method Indwelling Catheter Indwelling Catheter Indwelling Catheter ABP, PAP, CO, CI - Last Documented Arterial Blood Pressure 156/73 - Exam -GENERAL: The patient is sedated and intubated HEENT: Pupils are round and equally reacting to light. EOMI. No scleral icterus. No conjunctival pallor. Normocephalic, atraumatic. No pharyngeal erythema. No thyromegaly. CARDIOVASCULAR: S1 and S2 present. No murmurs, rubs, or gallops. PULMONARY: Chest is clear to auscultation, no wheezing or crackles. -ABDOMEN: Soft, nontender, nondistended, normoactive bowel sounds. No palpable organomegaly. Surgical wound is healing and closed MUSCULOSKELETAL: No joint swelling or deformity. EXTREMITIES: No cyanosis, clubbing, or pedal edema. NEUROLOGICAL: Gross neurological examination did not reveal any focal deficits. SKIN: No rashes. no petechiae. - Labs CBC & Chem 7: 06/04/21 04:50 06/04/21 04:50 Labs: Abnormal Lab Results - Last 24 Hours (Table) 06/03/21 06/03/21 06/03/21 Range/Units 11:39 18:15 23:31 WBC (3.8-10.6) k/uL RBC (4.30-5.90) m/uL Hgb (13.0-17.5) gm/dL Hct (39.0-53.0) % RDW (11.5-15.5) % Neutrophils # (1.3-7.7) k/uL ABG pH (7.35-7.45) ABG pCO2 (35-45) mmHg ABG pO2 60 L (83-108) mmHg ABG Total CO2 (19-24) mmol/L Sodium (137-145) mmol/L Chloride (98-107) mmol/L BUN (9-20) mg/dL POC Glucose (mg/dL) 121 H 100 H (75-99) mg/dL Calcium (8.4-10.2) mg/dL 06/04/21 06/04/21 06/04/21 Range/Units 04:50 04:50 05:51 WBC 13.7 H (3.8-10.6) k/uL RBC 3.16 L (4.30-5.90) m/uL Hgb 9.2 L (13.0-17.5) gm/dL Hct 28.6 L (39.0-53.0) % RDW 16.7 H (11.5-15.5) % Neutrophils # 11.5 H (1.3-7.7) k/uL ABG pH 7.47 H (7.35-7.45) ABG pCO2 34 L (35-45) mmHg ABG pO2 (83-108) mmHg ABG Total CO2 26 H (19-24) mmol/L Sodium 136 L (137-145) mmol/L Chloride 109 H (98-107) mmol/L BUN 27 H (9-20) mg/dL POC Glucose (mg/dL) (75-99) mg/dL Calcium 7.2 L (8.4-10.2) mg/dL 06/04/21 06/04/21 Range/Units 05:53 11:51 WBC (3.8-10.6) k/uL RBC (4.30-5.90) m/uL Hgb (13.0-17.5) gm/dL Hct (39.0-53.0) % RDW (11.5-15.5) % Neutrophils # (1.3-7.7) k/uL ABG pH (7.35-7.45) ABG pCO2 (35-45) mmHg ABG pO2 (83-108) mmHg ABG Total CO2 (19-24) mmol/L Sodium (137-145) mmol/L Chloride (98-107) mmol/L BUN (9-20) mg/dL POC Glucose (mg/dL) 100 H 115 H (75-99) mg/dL Calcium (8.4-10.2) mg/dL Microbiology - Last 24 Hours (Table) 05/30/21 13:35 Blood Culture - Preliminary Blood No Growth after 96 hours Assessment and Plan Assessment: Crohn's disease with inflamed ileum and right colon and right abdominal abscess status post exploratory laparotomy and ileocolectomy with washout of peritoneal abscess on 05/28/21 Sepsis and severe infection secondary to E. coli, and aerobes and Keke, secondary to above Bilateral Covid pneumonia Acute hypoxic respiratory failure Increased inflammatory markers Crohn's disease Possible cirrhosis A. fib with RVR, currently her heart rate is controlled Plan: this is a pleasant 41 years old male who presents with intra-abdominal infection, as below and abdominal abscess status post exploratory laparotomy and also with Bilateral Covid pneumonia and hypoxia Continue with vitamin C, vitamin D, and zinc. Continue with dexamethasone Pulmonary team consult Surgery team and infectious disease consult on the case Continue with antibiotics per infectious disease team recommendation and currently is on IV Flagyl, Zosyn and Eraxis Labs and medication were reviewed.. Continue same treatment. Continue with symptomatic treatment. Resume home medication. Monitor lytes and vitals. DVT and GI prophylaxis. Further recommendationsas per clinical course of the patient DVT prophylaxis: Subcutaneous heparin GI Prophylaxis: Ppi Prognosis is guarded
[2021-06-05] MEDS: INSULIN ASPART (NovoLOG) 100 UNIT/ML VIAL SQ SCH ×5 (01:45→23:52)
[2021-06-05] MEDS: HYDROmorphone 0.5 MG/0.5 ML SYRINGE IVP PRN ×2 (02:03→06:37)
[2021-06-05] MEDS: ONDANSETRON 4 MG/2 ML VIAL IVP PRN ×4 (02:03→23:25)
[2021-06-05] MEDS: [UNRECOGNIZED DRUG - REMARK] IV SCH ×14 (02:44→16:04)
[2021-06-05 04:52] LABS: African American GFR (CKD) >90 (>60 ml/min/1.73 sqM); Anion Gap 3 mmol/L; Blood Urea Nitrogen 26 mg/dL (9-20); Calcium 7.3 mg/dL (8.4-10.2); Carbon Dioxide 23 mmol/L (22-30); Chloride 111 mmol/L (98-107); Glucose 101 mg/dL (74-99); Non-African American GFR(CKD) >90 (>60 ml/min/1.73 sqM); Phosphorus 3.6 mg/dL (2.5-4.5); Potassium 3.8 mmol/L (3.5-5.1); Sodium 137 mmol/L (137-145)
[2021-06-05 04:59] LABS: Prothrombin Time 10.5 sec (9.0-12.0)
[2021-06-05 05:24] LABS: Glucose,Whole Blood 100 mg/dL (75-99)
[2021-06-05] MEDS: metroNIDAZOLE-NS PMX 500 MG in SALINE 1 100ML.BAG IVPB SCH ×2 (05:41→11:31)
[2021-06-05] MEDS: PANTOPRAZOLE 40 MG/10 ML VIAL IVP SCH ×2 (08:39→20:10)
[2021-06-05] MEDS: ENOXAPARIN 40 MG/0.4 ML SYRINGE SQ SCH (08:40)
[2021-06-05] MEDS: PIPERACILLIN-TAZOBACTAM 3.375 GM in SODIUM CHLORIDE 0.9% 100 ML IVPB SCH ×3 (08:40→23:50)
[2021-06-05] MEDS: DEXAMETHASONE SOD PHOSPHATE 10 MG/ML 1 ML VIAL IVP SCH (08:40)
[2021-06-05] MEDS: DEXAMETHASONE SOD PHOSPHATE 4 MG/ML 1 ML VIAL IVP SCH (09:07)
--- NOTE | 2021-06-05 09:38 | XR ---
EXAMINATION TYPE: XR chest 1V portable DATE OF EXAM: 06/05/2021 CLINICAL HISTORY: Difficulty breathing progress study. TECHNIQUE: Single AP portable upright view of the chest is obtained. COMPARISON: Chest x-ray from one day earlier and older studies. FINDINGS: Interval extubation. Stable orogastric tubes. Stable left internal jugular central venous catheter. Persistent low lung volumes with elevated right hemidiaphragm. Persistent bibasilar increased opaci ties. Cardiac silhouette size is stable and within normal limits. Osseous structures are intact. IMPRESSION: Interval extubation. Low lung volumes with elevated right hemidiaphragm and patchy bibasi lar atelectasis and/or infiltrate are all redemonstrated.
--- NOTE | 2021-06-05 09:50 | P.PN ---
Subjective Progress Note Date: 06/05/21 Principal diagnosis: Acute abdomen related to abscess formation and perforation with pneumoperitoneum, acute COVID-19 related pneumonia On 05/30/2021 patient seen in follow-up in the intensive care unit, today is postoperative day #3 status post right colectomy, resection of terminal ileum and end-to-end anastomosis for inflammatory bowel disease with abscess formation and perforation. Patient remains intubated, sedated on assist control mode of ventilation with a rate of 24, tidal volumes 500, FiO2 of 80% and PEEP of 10, today's blood gas shows pO2 66 pCO2 37, and pH of 7.37 this was done on 80% FiO2 and subsequently fio2 has been dropped down to 70%. Chest x-ray today shows low lung volumes with elevated right hemidiaphragm and bilateral multifocal increased opacities consistent with COVID-19 infection. Patient was tested again via rapid COVID-19 PCR test and was found to be positive on 05/27/2021. Current drips include 0.9 at 75 ML per hour, Diprivan is a 50 mics per kilo per minute, Cardizem drip is at 20 mg per hour, amiodarone drip 0.5 mg/m, and norepinephrine drip has been weaned off, patient is on TPN at 70 ML per hour, antibiotics including Zosyn and Flagyl. Abdominal wound cultures were positive for E. coli and Keke. Urine culture is been sent, and remains negative thus far, blood cultures have been negative. he has been afebrile overnight, with T-max of 101.9F. Today's blood work reviewed showing a white blood cell count of 5.2, hemoglobin of 7.9, sodium is 147, potassium is 4.0, chloride is 120, CO2 is 18, BUN is 32, and creatinine is 1.13. Urine output is in the order of 100-125 ML per hour. He is currently in sinus mechanism with a rate of 93 BPM. Abdominal incision is clean dry and intact, Bowel sounds are hypoactive. On 05/31/2021 patient seen in follow-up in intensive care unit. Today's postoperative day #4, status post right colectomy, resection of terminal ileum and end-to-end anastomosis for inflammatory bowel disease with abscess formation and perforation. He remains intubated, he is on volume assist control mode of ventilation, with a rate of 24, tidal volume is 500, FiO2 of 70% and PEEP of 10, this morning's blood gas shows pO2 of 54, pCO2 of 39, and pH of 7.31. Today's chest x-ray showed low lung volumes, elevated right hemidiaphragm and bilateral multifocal increased opacities consistent with COVID-19 infection, no significant change from one day earlier. Patient remains on 0.45 at a rate of 150 ML per hour, TPN is a 70 ML per hour, Diprivan is a 75 mics per kilo per minute, and amiodarone drip is at 0.5 mg/m. Today's labs have been reviewed, white blood cell count is 8.2, hemoglobin is 7.9, sodium is improving and is down to 146, chloride is 119, CO2 is 16, B1 is 32, creatinine is 1.01. Abdominal wound cultures were positive for E. coli and Keke and anaerobic gram-negative bacilli. Urine cultures have been negative, sputum Gram stain showed few PMNs, few budding his, rare gram-positive cocci. Not requiring any vasopressor support, urine output is in the order of 70-150 ML per hour. Heart rate is controlled. Remains in sinus mechanism. Remains on Eraxis, Flagyl, and Zosyn. He is on Protonix for GI prophylaxis, and Lovenox 40 mg daily for DVT prophylaxis. Abdominal incisions clean dry and intact, bowel sounds are hypoactive. On 06/01/2021 patient seen in follow-up in intensive care unit, he remains sedated, intubated on mechanical ventilator, on assist-control mode of ventilation with a rate of 24, tidal volume 500, FiO2 of 60% and PEEP of 15. This point his blood gas shows pO2 of 65, pCO2 36, pH of 7.37 this was done on the above-mentioned vent settings and FiO2 of 60%, his pulse ox is 97-98%, FiO2 has been dropped down to 50%. Today's chest x-ray shows hypoventilatory changes interstitial prominence that could be due to vascular crowding or mild pulmonary vascular congestion, mild patchy bibasilar opacities likely related to atelectasis, He is hemodynamically stable. He is currently on 0.9 normal saline at 10 ML per hour, his IV fluids 0.45 at 150 ML per hour, Diprivan is a 75 mics per kilo per minute, amiodarone is at 0.5 mg/m. No vasopressor support. Urine output is in the order of 75-100 ML per hour. Patient is generally fluid overl oaded, he is in over 10 kg positive net fluid balance over the last several days. He remains on TPN furniture no support, bowel sounds are extremely hypoactive. Abdominal incision is clean dry and intact, ADRIAN drain is compressed and draining and there is been 20 mL of serous output in the last 24 hours. Today's labs have been reviewed showing white blood cell count of 8.0, hemoglobin of 7.6, sodium is 143, potassium is 4.8, chloride is 121, CO2 is 17, BUN is 28, creatinine 0.81. Total bilirubin is improving and is down to 1.5, his LFTs are also improved. His abdominal wound culture positive for E. coli and Keke and anaerobic gram negative bacilli, final cultures pending, urine sputum and blood cultures have been negative. No fever overnight.Remains on Eraxis, Flagyl, and Zosyn. He is on Protonix for GI prophylaxis, and Lovenox 40 mg daily for DVT prophylaxis. On 06/02/2021 patient seen in follow-up in intensive care unit, he remains intubated, sedated, on assist-control mode of ventilation with a rate of 24, tidal volume is 500, FiO2 of 50% and PEEP was dropped down to 12 from 15 yesterday. This morning's blood gas shows pO2 of 64, pCO2 36, and pH of 7.41 this was done on above-mentioned vent settings, today's chest x-ray has been reviewed, and ET tube was 7.3 cm from the jossie, and ET tube will be advanced 2 cm, there was increasing moderate right pleural effusion with adjacent atelectasis and/or consolidation, and continued patchy opacity at the left base with suspected background pulmonary vascular congestion. No fevers overnight, patient is hemodynamically stable, no vasopressor support for last 48 hours, yesterday returned his fluids down to KVO, and patient received a dose of IV Lasix 40 mg times one, he is in -1.8 L net fluid balance over the last 24 hours, however he is still insignificantly positive net fluid balance of at least 10 kg since admission. He appears to be quite fluid overloaded with a generalized edema. He has remained in sinus mechanism. Has been no recurrence of A. fib with RVR, he remains on amiodarone drip at 0.5 mg/m, he is on D5W at a rate of 20 ML per hour, TPN is at 30 ML per hour, Diprivan is a 75 mics per kilo per minute, no other drips. Today's labs have been reviewed showing white blood cell count of 12.5, hemoglobin of 8.7, sodium is 142, potassium is 4.6, chloride is 116, CO2 is 18, BUN is 30, creatinine 0.87, LFTs are improved, total bilirubin is down to 1.7, liver ultrasound has been completed showing slightly heterogeneous parenchyma and subtle contour nodularity, correlate for underlying cirrhosis, no gross abnormality of the gallbladder, no biliary ductal dilation. His mid abdominal incision covered with a surgical dressing, however there is some drainage from the distal end of the incision, there are gerald in place, and there is packing of the distal end of the abdominal wound, ADRIAN drain is compressed and draining small amount of serous fluid. Bowel sounds are more active on today's exam, however patient has not passed any gas or stool. On 06/03/2021 patient follow-up in the intensive care unit, he remains sedated and intubated, patient is currently on assist control mode of ventilation with a rate of 24, tidal vitamins 500, FiO2 of 40% and PEEP of 8. This morning his blood gases shows pO2 of 66, pCO2 of 35, a pH of 7.48, this was done on the above-mentioned vent settings. His pulse ox is 97%. His chest x-ray shows small to moderate subpulmonic right pleural fluid, improving bibasilar infiltrates. Patient was given 2 more doses of IV Lasix yesterday, he has massively diuresed, he is in -6.7 L net fluid balance over the last 24 hours, generalized edema has significantly improved, not requiring any vasopressor support, he remains in sinus mechanism, there has been no recurrence of atrial fibrillation, amiodarone drip has been discontinued, his been afebrile overnig ht, IV drips include Diprivan is a 75 mics per kilo per minute, 0.9 and 20 ML per hour, and TPN is a 30 ML per hour, according to the nursing staff patient had a bowel movement last night, bowel sounds are hypoactive. Abdominal incisions clean dry, and the distal portion of the incision is draining less serous fluid, ADRIAN drain is compressed and draining, minimal output. Abdomen is a little less distended, and there is less weeping out of his upper extremities. Vital signs have been stable overnight, today's labs have been reviewed, white blood cell, slightly improved and is down to 11.7, hemoglobin is 9.1, sodium is 138, potassium 3.9, chloride is 111, B1 is 31 creatinine 0.89. Yesterday patient was given a sedation holiday according to the nursing staff he did wake up and did follow commands appropriately. On 06/05/2021 patient seen in follow-up in the intensive care unit, he was forbes ccessfully weaned and extubate her from the mechanical ventilator yesterday on 06/04/2021, tolerating extubation quite well so far, currently on 3 L of oxygen pulse ox is 91-94%, he is awake and alert, he is oriented 3, responding appropriately, breathing comfortably, today's chest x-ray has been reviewed showing Omitted right hemidiaphragm, bilateral opacities consistent with COVID- 19 infection, no significant change from prior exam was noted on today's chest x-ray. Hemodynamically patient is stable, he is on 0.0 normal saline at a rate of 20 ML per hour, he is on TPN at 30 ML per hour, he is in sinus mechanism with a rate of 80 BPM, he still remains on TPN however patient is bowel activity is improving, and patient has passed multiple bowel movements yesterday. Bowel sounds are hypoactive, abdomen is soft, mid abdominal incision is clean dry and intact, minimal drainage at the distal end of the incision, ADRIAN drain with minimal output, compressed and draining. He is breathing comfortably, lung sounds are positive for diffuse crackles at the bases, he is maintaining negative fluid balance, and he is in -1.3 net fluid balance over the last 24 hours, NG tube is in place, and patient has put out 900 mL and gastric output in the last 24 hours, he remains nothing by mouth, he remains on a combination of antibiotics with Zosyn, Eraxis, Flagyl. Vital signs have been stable overnight. Patient remains on Decadron 6 g daily, he is on prophylactic dose Lovenox 40 mg daily. Patient is mildly generally swollen, urine output has been in the order of 75 to 1:30 ML per hour. Patient is eager to get up out of bed, however he is generally weak, physical therapy will be consulted, and we'll try to edge him today, and possibly in a chair later on Objective - Vital Signs Vital signs: Vital Signs Temp 98.4 F 06/04/21 16:00 Pulse 72 06/05/21 07:00 Resp 13 06/05/21 07:00 BP 125/64 06/05/21 06:00 Pulse Ox 94 L 06/05/21 07:00 Intake & Output 06/04/21 06/05/21 06/05/21 18:59 06:59 18:59 Intake Total 055.890 5777.5 23 Output Total 1515 1585 75 Balance -833.363 -507.5 -52 Weight 139.9 kg Intake: IV 379 266 23 0.9 Carrier 120 230 20 Piperacillin-Tazobactam 3 100 .375 gm In Sodium Chloride 0.9% 100 ml @ 25 mls/hr IVPB Q8HR [facility] Rx# :[id number] Sodium Chloride 0.45% 1, 20 000 ml @ 20 mls/hr IV . Q24H [facility] Rx#:[id number] metroNIDAZOLE-NS PMX 500 100 mg In Saline 1 100ml.bag @ 100 mls/hr IVPB Q6HR [facility] Rx#:[id number] pressure bags 39 36 3 Intake, IV Titration 302.637 811.5 Amount Mvi, Adult No.4 with Vit 811.5 K 10 ml Trace (Conc-1Ml/ Dose) 1 ml Sodium Phosphate 6 mmol Magnesium Sulfate gm 1 gm Calcium Gluconate 1 gm In Amino Acid 4.25%-D10w 1,000 ml @ 30 mls/hr IV . BY DURATION [facility] Rx#: [id number] Potassium Chloride 20 meq 100 In Water For Injection 1 100ml.bag @ 50 mls/hr IVPB Q2H [facility] Rx#: [id number] propofoL 1,000 mg In 202.637 Empty Bag 1 bag @ Titrate IV .Q0M [facility] Rx#: [id number] Output: Gastric Drainage 500 400 Drainage 20 Abdomen 20 Urine 1015 1165 75 Other: Voiding Method Indwelling Catheter Indwelling Catheter Indwelling Catheter ABP, PAP, CO, CI - Last Documented Arterial Blood Pressure 118/55 - Exam GENERAL EXAM: Awake and alert 41-year-old white male, extubated on 06/04/2021, tolerating extubation well, currently on 3 L of oxygen, doing well, pulse ox is 91-94% HEAD: Normocephalic/atraumatic. EYES: Normal reaction of pupils, equal size. Conjunctiva pink, sclera white. NOSE: Clear with pink turbinates. THROAT: No erythema or exudates. NECK: No masses, no JVD, no thyroid enlargement, no adenopathy. CHEST: No chest wall deformity. Symmetrical expansion. LUNGS: Equal air entry with basilar crackles, diminished breath sounds at the bases CVS: Regular rate and rhythm, normal S1 and S2, no gallops, no murmurs, no rubs ABDOMEN: Soft, nontender. No hepatosplenomegaly, normal bowel sounds, no guarding or rigidity. Abdominal incision is clean dry and intact, right lower quadrant ADRIAN drain with small amount of seros material, ADRIAN drain is compressed and draining. EXTREMITIES: No clubbing, mild generalized edema and edema involving upper and lower extremities, nonpitting. no cyanosis, 2+ pulses and upper and lower extremities. MUSCULOSKELETAL: Muscle strength and tone normal. SPINE: No scoliosis or deformity SKIN: No rashes CENTRAL NERVOUS SYSTEM: Awake and alert, oriented 3 No focal deficits, tone is normal in all 4 extremities. - Labs CBC & Chem 7: 06/04/21 04:50 06/05/21 04:20 Labs: Abnormal Lab Results - Last 24 Hours (Table) 06/04/21 06/04/21 06/05/21 Range/Units 11:51 17:49 04:20 Chloride 111 H (98-107) mmol/L BUN 26 H (9-20) mg/dL Glucose 101 H (74-99) mg/dL POC Glucose (mg/dL) 115 H 126 H (75-99) mg/dL Calcium 7.3 L (8.4-10.2) mg/dL 06/05/21 Range/Units 05:22 Chloride (98-107) mmol/L BUN (9-20) mg/dL Glucose (74-99) mg/dL POC Glucose (mg/dL) 100 H (75-99) mg/dL Calcium (8.4-10.2) mg/dL Microbiology - Last 24 Hours (Table) 05/30/21 13:35 Blood Culture - Preliminary Blood No Growth after 120 hours Assessment and Plan Plan: Assessment: #1. Acute abdomen related to inflammatory bowel disease involving the terminal ileum with abscess formation and perforation with pneumoperitoneum, status post surgical resection of the terminal ileum of the colon, ileocolectomy and colectomy of the right colon, on 05/28/2021. #2. Acute hypoxic respiratory failure, related to acute abdominal sepsis, and acute COVID-19 related pneumonia, requiring intubation and mechanical ventilation, was successfully weaned and extubated on 06/04/2021 and is currently on 3 L of oxygen. There is a possibility of right hemidiaphragm elevation, possible right hemidiaphragm paralysis #3. Atrial fibrillation with RVR, currently in sinus mechanism. Amiodarone and Cardizem drip have been discontinued, patient has not had a recurrence of A. fib #4. Fever related to acute abdominal sepsis, improved and recovered #5. Hyponatremia, improved, and patient now has hypernatremia related to free water deficit, patient was fluid resuscitated, currently serum sodium is 138 #6. Acute kidney injury, recovered #7. Acute lactic acidosis, improved, anion gap acidosis has resolved #8. Leukocytosis, improved #9. Anemia, possibly dilutional, improved with IV diuretics. Plan: Today's chest x-ray, labs reviewed Patient is tolerating extubation quite well so far Provide an incentive spirometer, and instruct patient on its use Continue antibiotics per surgical recommendations Afebrile overnight, vital signs are stable, remains in sinus mechanism, not requiring any vasopressor support Patient continues on TPN, however he is been passing multiple bowel movements Still putting out significant amount out of NG tube Surgical input as far as the timing of initiation of tube feedings Follow-up labs and chest x-ray for tomorrow Increase activity as tolerated, On the edge of the bed, possibly in the chair today Consult to physical therapy We'll continue to closely follow We'll cut back Decadron to 4 mg daily Continue with prophylactic dose Lovenox Multivitamins with TPN Continues to do well may consider transfer out of intensive care unit to general medical surgical floor today We'll continue to closely follow I performed a history & physical examination of the patient and discussed their management with my nurse practitioner, Ирина Woods. I reviewed the nurse practitioner's note and agree with the documented findings and plan of care. Lung sounds are positive for dim breath sounds throughout the lung moran. The findings and the impression was discussed with the patient. I attest to the documentation by the nurse practitioner. Time with Patient: Greater than 30
[2021-06-05 11:51] LABS: Glucose,Whole Blood 116 mg/dL (75-99)
--- NOTE | 2021-06-05 12:11 | P.PN ---
Subjective Progress Note Date: 06/05/21 Principal diagnosis: Crohn's abscess Patient was extubated yesterday. Says his pain is mild. No shortness of breath. Nasogastric tube is bilious. CBC is pending. He is afebrile. Objective - Vital Signs Vital signs: Vital Signs Temp 98.0 F 06/05/21 08:00 Pulse 86 06/05/21 11:00 Resp 24 06/05/21 11:00 BP 125/64 06/05/21 06:00 Pulse Ox 91 L 06/05/21 11:00 Intake & Output 06/04/21 06/05/21 06/05/21 18:59 06:59 18:59 Intake Total 802.905 2748.5 23 Output Total 1515 1585 75 Balance -833.363 -507.5 -52 Weight 139.9 kg Intake: IV 379 266 23 0.9 Carrier 120 230 20 Piperacillin-Tazobactam 3 100 .375 gm In Sodium Chloride 0.9% 100 ml @ 25 mls/hr IVPB Q8HR [facility] Rx# :[id number] Sodium Chloride 0.45% 1, 20 000 ml @ 20 mls/hr IV . Q24H [facility] Rx#:[id number] metroNIDAZOLE-NS PMX 500 100 mg In Saline 1 100ml.bag @ 100 mls/hr IVPB Q6HR [facility] Rx#:[id number] pressure bags 39 36 3 Intake, IV Titration 302.637 811.5 Amount Mvi, Adult No.4 with Vit 811.5 K 10 ml Trace (Conc-1Ml/ Dose) 1 ml Sodium Phosphate 6 mmol Magnesium Sulfate gm 1 gm Calcium Gluconate 1 gm In Amino Acid 4.25%-D10w 1,000 ml @ 30 mls/hr IV . BY DURATION [facility] Rx#: [id number] Potassium Chloride 20 meq 100 In Water For Injection 1 100ml.bag @ 50 mls/hr IVPB Q2H [facility] Rx#: [id number] propofoL 1,000 mg In 202.637 Empty Bag 1 bag @ Titrate IV .Q0M [facility] Rx#: [id number] Output: Gastric Drainage 500 400 Drainage 20 Abdomen 20 Urine 1015 1165 75 Other: Voiding Method Indwelling Catheter Indwelling Catheter Indwelling Catheter ABP, PAP, CO, CI - Last Documented Arterial Blood Pressure 128/61 - Exam Abdomen: Soft, mild distention, mild tenderness, dressing with serous drainage - Labs CBC & Chem 7: 06/04/21 04:50 06/05/21 04:20 Labs: Abnormal Lab Results - Last 24 Hours (Table) 06/04/21 06/05/21 06/05/21 Range/Units 17:49 04:20 05:22 Chloride 111 H (98-107) mmol/L BUN 26 H (9-20) mg/dL Glucose 101 H (74-99) mg/dL POC Glucose (mg/dL) 126 H 100 H (75-99) mg/dL Calcium 7.3 L (8.4-10.2) mg/dL 06/05/21 Range/Units 11:49 Chloride (98-107) mmol/L BUN (9-20) mg/dL Glucose (74-99) mg/dL POC Glucose (mg/dL) 116 H (75-99) mg/dL Calcium (8.4-10.2) mg/dL Microbiology - Last 24 Hours (Table) 05/30/21 13:35 Blood Culture - Preliminary Blood No Growth after 120 hours Assessment and Plan (1) Pneumoperitoneum Narrative/Plan: Patient improving gradually. Continue nasogastric tube to suction. He is having bowel function. Likely will remove nasogastric tube tomorrow. Continue antibiotics. Current Visit: Yes Status: Acute Code(s): K66.8 - OTHER SPECIFIED DISORDERS OF PERITONEUM SNOMED Code(s): 52109381
[2021-06-05] MEDS: ANIDULAFUNGIN 100 MG in SODIUM CHLORIDE 0.9% 100 ML IVPB SCH (14:43)
[2021-06-05] MEDS: HYDROmorphone 1 MG/ML 1 ML SYRINGE IVP PRN ×2 (14:47→23:25)
[2021-06-05 15:55] LABS: Anisocytosis Slight; Basophils % (A) 0 %; Eosinophils # (A) 0.1 k/uL (0-0.7); Eosinophils % (A) 1 %; HCT 28.6 % (39.0-53.0); HGB 8.8 gm/dL (13.0-17.5); Hypochromasia Marked; Lymphocytes # (A) 0.6 k/uL (1.0-4.8); Lymphocytes % (A) 6 %; MCH 29.5 pg (25.0-35.0); MCHC 30.8 g/dL (31.0-37.0); Macrocytosis Slight; Mean Platelet Volume 10.3; Monocytes # (A) 0.6 k/uL (0-1.0); Monocytes % (A) 5 %; Neutrophils # (A) 9.6 k/uL (1.3-7.7); Neutrophils % (A) 87 %; Platelet Count 283 k/uL (150-450); RBC 2.99 m/uL (4.30-5.90); RDW 17.2 % (11.5-15.5)
[2021-06-05 15:59] LABS: MCV 95.9 fL (80.0-100.0)
[2021-06-05 17:57] LABS: Glucose,Whole Blood 108 mg/dL (75-99)
--- NOTE | 2021-06-05 19:50 | PN ---
PROGRESS NOTE DATE OF SERVICE: 06/05/2021. REASON FOR FOLLOW UP: Intraabdominal abscess. INTERIM HISTORY: The patient is afebrile. The patient is currently breathing comfortably on nasal cannula oxygen. Denies any chest pain. Abdominal pain is currently controlled. No nausea. No vomiting or diarrhea. PHYSICAL EXAMINATION: Blood pressure 110/56, pulse of 71, temperature 98.5. He is 96% on 2 L nasal cannula. General description is a middle-aged male lying in bed in no distress. Respiratory system: Unlabored breathing, decreased breath sounds in the base. No wheeze. Heart S1, S2. Regular rate and rhythm. Abdomen: Soft. No tenderness. LABS: Hemoglobin is 8, white count 11.0, creatinine 0.7. DIAGNOSTIC IMPRESSION AND PLAN: 1. Patient admitted with intraabdominal abscess, status post laparotomy and culture has been positive for E. coli anaerobes Keke in this patient covered with the Eraxis and Zosyn. To continue monitor clinical course closely. Family at the bedside, questions were answered. 2. Patient with COVID-19 infection with symptoms started on May 15 and he tested positive on May 17. Patient currently three weeks out of his admission symptom onset and can be taken off per CDC guidelines. MMODL / IJN: [id number] /
[2021-06-05] MEDS ORDERED: LORazepam 2 MG/ML INJ IV PRN (20:03)
[2021-06-05 23:27] LABS: Glucose,Whole Blood 96 mg/dL (75-99)
--- NOTE | 2021-06-06 00:16 | P.PN ---
Subjective This is a pleasant 41 years old male with history of Crohn's disease presents on 05/25 for abdominal pain. Found to have mechanical bowel obstruction with pneumoperitoneum, he underwent exploratory laparotomy by surgery team with ileocolectomy for inflamed right colon and ileum and right lower quadrant abdominal abscess status post washout. He has positive wound culture for E. coli and Keke and sputum culture positive for Keke as well and positive and anaerobic culture and is being covered with IV Flagyl, Zosyn and eraxis , with ID team on the case. Also patient is intubated for acute hypoxic respiratory failure secondary to his intra-abdominal sepsis and Covid bilateral pneumonia. However his PEEP is 5 and FiO2 40% and patient is expected to be extubated soon. Pulmonary/critical care team on the case. Remains on dexamethasone, vitamin C, D and zinc. Chest x-ray showing bilateral Covid pneumonia, no significant change. Liver ultrasound showing possible cirrhosis also he has A. fib with rate controlled now Labs show WBC 13.7, hemoglobin 9.2, d-dimer 9.2. 06/05/2020 Patient remains in the ICU status post extubation yesterday, he still monitored closely, I still generally weak, with locked on voice, fully awake and oriented but looks very tired, somewhat tachypneic, he is on 2 L oxygen via nasal cannula. Also distal half NG tube but is getting TPN as well with several bowel movements and no abdominal pain or tenderness. He had recent surgery for infection and abscess and inflammatory bowel disease status post exploratory laparotomy and ileocolectomy. He is kept on antibiotics with Zosyn and Eraxis while Flagyl was discontinued today. He has one culture positive for Keke and E. coli and sputum culture positive for Keke. Also positive and aerobic cultures. Chest x-ray showing patchy bibasilar atelectasis and/or infiltrate in view of history of Covid he was kept on dexamethasone but lower the dose from 6 mg down to 4 mg and placed on Ativan as needed for his periods of agitation. Also he is on multiple vitamins, C, D and zinc. WBC 11,000, hemoglobin 8.8. Review of systems HEENT: No recent visual problems or hearing problems. Denied any sore throat. CARDIOVASCULAR: No orthopnea, PND, no palpitations, no syncope. PULMONARY: No chest wall tenderness, no hemoptysis. GASTROINTESTINAL: No diarrhea, no nausea, no vomiting, . Normoactive bowel sounds. NEUROLOGICAL: No headaches, no weakness, no numbness. HEMATOLOGICAL: Denies any bleeding or petechiae. Active Medications Generic Name Dose Route Start Last Admin Trade Name Freq PRN Reason Stop Dose Admin Dexamethasone Sodium Phosphate 4 mg 06/05/21 09:00 06/05/21 09:07 Dexamethasone Sod Phosphate 4 Mg/Ml 1 Ml Vial IVP Not Given DAILY [facility] Enoxaparin Sodium 40 mg 05/29/21 09:00 06/05/21 08:40 Enoxaparin 40 Mg/0.4 Ml Syringe SQ 40 mg DAILY [facility] Administration Hydromorphone HCl 1 mg 05/26/21 08:38 06/05/21 23:25 Hydromorphone 1 Mg/Ml 1 Ml Syringe IVP 1 mg Q3HR PRN Administration [facility] [employer] Piperacillin Sod/Tazobactam 100 mls @ 25 mls/hr 05/26/21 08:30 06/05/21 23:50 Sod 3.375 gm/ Sodium Chloride IVPB 25 mls/hr Q8HR [facility] Administration Anidulafungin 100 mg/ Sodium 100 mls @ 84 mls/hr 05/31/21 15:00 06/05/21 14:43 Chloride IVPB 84 mls/hr DAILY@1500 [facility] Administration Parenteral Vitamin Supplement 1,025 mls @ 30 mls/hr 06/03/21 16:00 06/05/21 02:44 10 ml/ Zinc/Copper/Manganese/ IV 06/06/21 02:59 30 mls/hr Selenium 1 ml/ Sodium .BY DURATION [facility] Administration Phosphate 6 mmol/ Magnesium Sulfate 1 gm/ Calcium Gluconate 1 gm/ Amino Acids/ Dextrose Potassium Phosphate 6 mmol/ 1,014 mls @ 30 mls/hr 06/03/21 16:00 06/05/21 16:04 Magnesium Sulfate 1 gm/ IV 06/06/21 02:59 Not Given Calcium Gluconate 1 gm/ Amino .BY DURATION [facility] Acids/Dextrose Parenteral Vitamin Supplement 1,025 mls @ 30 mls/hr 06/06/21 03:00 10 ml/ Zinc/Copper/Manganese/ IV Selenium 1 ml/ Sodium .BY DURATION [facility] Phosphate 6 mmol/ Magnesium Sulfate 1 gm/ Calcium Gluconate 1 gm/ Amino Acids/ Dextrose Potassium Phosphate 6 mmol/ 1,014 mls @ 30 mls/hr 06/06/21 03:00 Magnesium Sulfate 1 gm/ IV Calcium Gluconate 1 gm/ Amino .BY DURATION [facility] Acids/Dextrose Insulin Aspart 0 unit 06/04/21 06:00 06/05/21 23:52 Insulin Aspart (Novolog) 100 Unit/Ml Vial SQ Not Given Q6H [facility] Protocol Lorazepam 0.5 mg 06/05/21 20:03 06/05/21 20:10 Lorazepam 2 Mg/Ml Inj IV 0.5 mg Q6HR PRN Administration Anxiety Miscellaneous Information 1 each 06/04/21 06:13 Potassium Replacement Protocol 1 Each Misc MISCELLANE DAILY PRN Per Protocol Protocol Naloxone HCl 0.2 mg 05/25/21 20:59 Naloxone 0.4 Mg/Ml 1 Ml Vial IV Q2M PRN Opioid Reversal Ondansetron HCl 4 mg 06/04/21 14:49 06/05/21 23:25 Ondansetron 4 Mg/2 Ml Vial IVP 4 mg Q6HR PRN Administration Nausea And Vomiting Pantoprazole Sodium 40 mg 05/26/21 21:00 06/05/21 20:10 Pantoprazole 40 Mg/10 Ml Vial IVP 40 mg BID [facility] Administration Objective - Vital Signs Vital signs: Vital Signs Temp 98.4 F 06/04/21 16:00 Pulse 72 06/05/21 07:00 Resp 13 06/05/21 07:00 BP 125/64 06/05/21 06:00 Pulse Ox 94 L 06/05/21 07:00 Intake & Output 06/04/21 06/05/21 06/05/21 18:59 06:59 18:59 Intake Total 916.678 8305.5 23 Output Total 1515 1585 75 Balance -833.363 -507.5 -52 Weight 139.9 kg Intake: IV 379 266 23 0.9 Carrier 120 230 20 Piperacillin-Tazobactam 3 100 .375 gm In Sodium Chloride 0.9% 100 ml @ 25 mls/hr IVPB Q8HR [facility] Rx# :[id number] Sodium Chloride 0.45% 1, 20 000 ml @ 20 mls/hr IV . Q24H [facility] Rx#:[id number] metroNIDAZOLE-NS PMX 500 100 mg In Saline 1 100ml.bag @ 100 mls/hr IVPB Q6HR [facility] Rx#:[id number] pressure bags 39 36 3 Intake, IV Titration 302.637 811.5 Amount Mvi, Adult No.4 with Vit 811.5 K 10 ml Trace (Conc-1Ml/ Dose) 1 ml Sodium Phosphate 6 mmol Magnesium Sulfate gm 1 gm Calcium Gluconate 1 gm In Amino Acid 4.25%-D10w 1,000 ml @ 30 mls/hr IV . BY DURATION [facility] Rx#: [id number] Potassium Chloride 20 meq 100 In Water For Injection 1 100ml.bag @ 50 mls/hr IVPB Q2H [facility] Rx#: [id number] propofoL 1,000 mg In 202.637 Empty Bag 1 bag @ Titrate IV .Q0M [facility] Rx#: [id number] Output: Gastric Drainage 500 400 Drainage 20 Abdomen 20 Urine 1015 1165 75 Other: Voiding Method Indwelling Catheter Indwelling Catheter Indwelling Catheter ABP, PAP, CO, CI - Last Documented Arterial Blood Pressure 118/55 - Exam -GENERAL: The patient is awake and alert and oriented, generally weak HEENT: Pupils are round and equally reacting to light. EOMI. No scleral icterus. No conjunctival pallor. Normocephalic, atraumatic. No pharyngeal erythema. No thyromegaly. CARDIOVASCULAR: S1 and S2 present. No murmurs, rubs, or gallops. PULMONARY: Chest is clear to auscultation, no wheezing or crackles. -ABDOMEN: Soft, nontender, nondistended, normoactive bowel sounds. No palpable organomegaly. Surgical wound is healing and closed MUSCULOSKELETAL: No joint swelling or deformity. EXTREMITIES: No cyanosis, clubbing, or pedal edema. NEUROLOGICAL: Gross neurological examination did not reveal any focal deficits. SKIN: No rashes. no petechiae. - Labs CBC & Chem 7: 06/05/21 04:20 06/05/21 04:20 Labs: Abnormal Lab Results - Last 24 Hours (Table) 06/04/21 06/04/21 06/05/21 Range/Units 11:51 17:49 04:20 Chloride 111 H (98-107) mmol/L BUN 26 H (9-20) mg/dL Glucose 101 H (74-99) mg/dL POC Glucose (mg/dL) 115 H 126 H (75-99) mg/dL Calcium 7.3 L (8.4-10.2) mg/dL 06/05/21 Range/Units 05:22 Chloride (98-107) mmol/L BUN (9-20) mg/dL Glucose (74-99) mg/dL POC Glucose (mg/dL) 100 H (75-99) mg/dL Calcium (8.4-10.2) mg/dL Microbiology - Last 24 Hours (Table) 05/30/21 13:35 Blood Culture - Preliminary Blood No Growth after 120 hours Assessment and Plan Assessment: Crohn's disease with inflamed ileum and right colon and right abdominal abscess status post exploratory laparotomy and ileocolectomy with washout of peritoneal abscess on 05/28/21 Sepsis and severe infection secondary to E. coli, and aerobes and Keke, secondary to above Bilateral Covid pneumonia Acute hypoxic respiratory failure Increased inflammatory markers Crohn's disease Agitation with possible combination of metabolic and toxic encephalopathy Possible cirrhosis A. fib with RVR, currently her heart rate is controlled Plan: this is a pleasant 41 years old male who presents with intra-abdominal infection, as below and abdominal abscess status post exploratory laparotomy and also with Bilateral Covid pneumonia and hypoxia Continue with vitamin C, vitamin D, and zinc. Continue with dexamethasone Pulmonary team consult Surgery team and infectious disease consult on the case Continue with antibiotics per infectious disease team recommendation and currently is on IV Zosyn and Eraxis Labs and medication were reviewed.. Continue same treatment. Continue with symptomatic treatment. Resume home medication. Monitor lytes and vitals. DVT and GI prophylaxis. Further recommendations as per clinical course of the patient DVT prophylaxis: Subcutaneous Lovenox GI Prophylaxis: Ppi Prognosis is guarded
[2021-06-06] MEDS: [UNRECOGNIZED DRUG - REMARK] IV SCH ×14 (02:54→20:48)
[2021-06-06 05:16] LABS: Glucose,Whole Blood 96 mg/dL (75-99)
[2021-06-06] MEDS: INSULIN ASPART (NovoLOG) 100 UNIT/ML VIAL SQ SCH ×3 (05:29→17:49)
[2021-06-06 06:08] LABS: Anisocytosis Slight; Basophils % (A) 0 %; Eosinophils # (A) 0.1 k/uL (0-0.7); Eosinophils % (A) 1 %; HCT 26.6 % (39.0-53.0); HGB 8.4 gm/dL (13.0-17.5); Hypochromasia Moderate; Lymphocytes # (A) 0.8 k/uL (1.0-4.8); Lymphocytes % (A) 8 %; MCH 29.6 pg (25.0-35.0); MCHC 31.8 g/dL (31.0-37.0); MCV 93.2 fL (80.0-100.0); Macrocytosis Slight; Mean Platelet Volume 8.6; Monocytes # (A) 0.4 k/uL (0-1.0); Monocytes % (A) 4 %; Neutrophils # (A) 7.6 k/uL (1.3-7.7); Neutrophils % (A) 85 %; Platelet Count 335 k/uL (150-450); RBC 2.85 m/uL (4.30-5.90); RDW 17.8 % (11.5-15.5)
[2021-06-06 06:21] LABS: African American GFR (CKD) >90 (>60 ml/min/1.73 sqM); Anion Gap 4 mmol/L; Blood Urea Nitrogen 27 mg/dL (9-20); Calcium 7.5 mg/dL (8.4-10.2); Carbon Dioxide 25 mmol/L (22-30); Chloride 108 mmol/L (98-107); Glucose 97 mg/dL (74-99); Non-African American GFR(CKD) >90 (>60 ml/min/1.73 sqM); Phosphorus 3.2 mg/dL (2.5-4.5); Potassium 3.7 mmol/L (3.5-5.1); Sodium 137 mmol/L (137-145)
[2021-06-06] MEDS ORDERED: LORazepam 2 MG/ML INJ IV PRN (09:13)
--- NOTE | 2021-06-06 09:18 | P.PN ---
Subjective Progress Note Date: 06/06/21 A 41-year-old male patient who was hospitalized on 05/25/2021 for abdominal pain of 3 days' duration. The patient stated that he was nauseated and he was unable to tolerate any form of oral intake. The patient was also having abdominal pain. He denied having any fever. He reported that he tested positive for COVID 19 approximately 8 days prior to his hospitalization. At that time, the patient did not have any abdominal pain. The patient was seen in the emergency department, the patient was hyponatremic initially with a sodium level of 129, he had a white cell count of 11.5, he had a serum bicarb of 18 with a anion gap of 17. The patient underwent a CAT scan of the abdomen and pelvis that showed inflammatory changes in the right lower quadrant with pneumoperitoneum. Gen. surgery was consulted and the patient was seen by the surgeon and due to the chronicity of the findings, chronic appendicitis was considered and the patient was started on IV antibiotics without any immediate surgical intervention. The plan was ultimately to do a surgical aspiration once the inflammation has sett led down with IV antibiotics. Based on that, the patient was admitted to the hospital for further monitoring and the patient is currently on IV Zosyn. I was consulted and the patient due to concerns of COVID 19 related to pneumonia. The patient had a chest x-ray showed patchy bilateral interstitial pulmonary opacities and the venous Dopplers were negative for DVT. Computed tomography scan of the chest was done that showed bilateral groundglass pulmonary infiltrates consistent with COVID 19 related pneumonia and there was evidence of pneumoperitoneum. The patient is morbidly obese. The patient is a BMI of 44.3. The patient is currently on 2 L of oxygen by nasal cannula. He is not having any significant respiratory distress. He was given Dilaudid for pain control. He is on Lovenox for the subcu for DVT prophylaxis. No steroid use at this point in time. The patient on normal saline at the rate of 100 mL an hour. 05/28/2020, the patient was taken to the operating room earlier this morning. Note that the patient developed atrial fibrillation with rapid ventricular response and this was refractory to Cardizem drip and boluses. He was started also on IV heparin by the medical doctor and he was On a Cardizem drip at 15 mg an hour. At the same time, his condition was decompensating. He was given a liter of normal saline bolus. A repeat computed tomography scan of the abdomen and pelvis was done and showed no peritoneal increased slightly compared to the last examination. There was also evidence of multiple dilated small bowel loops suggestive of mechanical obstruction/ileus which is increased temperature last examination. There was also some fat stranding and mesenteric edema in the right mid abdomen. The source was thought to be the terminal ileum. Appendix was not clearly seen. There was also increased airspace consolidation/atelectasis in lung bases bilaterally. At that point, the patient was seen by general surgery and the patient was taken to the operating room. Intraoperatively, the patient was found to significant inflammatory bowel disease of the terminal ileum and right colon. There was also abscess in the right lower quadrant. Based on that, the patient was given an ileocolectomy and right-sided colectomy. The patient had end-to-end anastomosis. A ADRIAN drain was placed. The patient was kept intubated and the patient was brought into the intensive care unit. He was successfully weaned and extubate her from the mechanical ventilator yesterday on 06/04/2021, tolerating extubation quite well so far, currently on 3 L of oxygen pulse ox is 91-94% On 06/06/21, the patient he is awake and alert, he is oriented 3, responding appropriately, breathing comfortably, today's chest x-ray has been reviewed showing elevated right hemidiaphragm, bilateral opacities consistent with COVID- 19 infection, no significant change from prior exam was noted on today's chest x-ray. Hemodynamically patient is stable, he is on normal saline at a rate of 20 ML per hour, he is on TPN at 30 ML per hour, he is in sinus mechanism with a rate of 80 BPM, he still remains on TPN however patient is bowel activity is improving, and patient has passed multiple bowel movements yesterday. Bowel sounds are hypoactive, abdomen is soft, mid abdominal incision is clean dry and intact, minimal drainage at the distal end of the incision, ADRIAN drain with min imal output, compressed and draining. He remains nothing by mouth, he remains on a combination of antibiotics with Zosyn and Eraxis, Vital signs have been stable overnight. Patient remains on Decadron 6 g daily, he is on prophylactic dose Lovenox 40 mg daily. The blood work from today shows a white cell count of 9 with a hemoglobin of 8.4 and a platelet count of 335, electrolytes are all within normal limits, sodium is at 137 with a potassium level of 3.7. The blood sugar is at 96. He is passing multiple bowel movements. His cardiac rhythm as sinus with occasional PACs. Hemodynamically stable on no pressors. The NG tube is still in place and output has been essentially minimal knowing that the output was quite high from yesterday in the order of 900 mL for 06/05/2021. This morning, no significant output in the NG tube. Objective - Vital Signs Vital signs: Vital Signs Temp 98.4 F 06/05/21 20:00 Pulse 70 06/06/21 07:00 Resp 12 06/06/21 07:00 BP 125/64 06/06/21 07:00 Pulse Ox 96 06/06/21 07:00 Intake & Output 06/05/21 06/06/21 06/06/21 18:59 06:59 18:59 Intake Total 509 143 13 Output Total 945 975 75 Balance -436 -832 -62 Weight 139.9 kg 133 kg Intake: IV 509 143 13 0.9 Carrier 170 110 10 Piperacillin-Tazobactam 3 200 .375 gm In Sodium Chloride 0.9% 100 ml @ 25 mls/hr IVPB Q8HR [facility] Rx# :[id number] metroNIDAZOLE-NS PMX 500 100 mg In Saline 1 100ml.bag @ 100 mls/hr IVPB Q6HR [facility] Rx#:[id number] pressure bags 39 33 3 Output: Urine 945 975 75 Other: Voiding Method Indwelling Catheter Indwelling Catheter ABP, PAP, CO, CI - Last Documented Arterial Blood Pressure 112/59 - Exam GENERAL EXAM: Awake and alert 41-year-old white male, extubated on 06/04/2021, tolerating extubation well, currently on 2 L of oxygen, doing well, pulse ox is 91-94% HEAD: Normocephalic/atraumatic. EYES: Normal reaction of pupils, equal size. Conjunctiva pink, sclera white. NOSE: Clear with pink turbinates. THROAT: No erythema or exudates. NECK: No masses, no JVD, no thyroid enlargement, no adenopathy. CHEST: No chest wall deformity. Symmetrical expansion. LUNGS: Equal air entry with basilar crackles, diminished breath sounds at the bases CVS: Regular rate and rhythm, normal S1 and S2, no gallops, no murmurs, no rubs ABDOMEN: Soft, nontender. No hepatosplenomegaly, normal bowel sounds, no guarding or rigidity. Abdominal incision is clean dry and intact, right lower quadrant ADRIAN drain with small amount of seros material, ADRIAN drain is compressed and draining. EXTREMITIES: No clubbing, mild generalized edema and edema involving upper and lower extremities, nonpitting. no cyanosis, 2+ pulses and upper and lower extre mities. MUSCULOSKELETAL: Muscle strength and tone normal. SPINE: No scoliosis or deformity SKIN: No rashes CENTRAL NERVOUS SYSTEM: Awake and alert, oriented 3 No focal deficits, tone is normal in all 4 extremities. - Labs CBC & Chem 7: 06/06/21 05:05 06/06/21 05:05 Labs: Abnormal Lab Results - Last 24 Hours (Table) 06/05/21 06/05/21 06/05/21 Range/Units 04:20 11:49 17:57 WBC 11.0 H (3.8-10.6) k/uL RBC 2.99 L (4.30-5.90) m/uL Hgb 8.8 L (13.0-17.5) gm/dL Hct 28.6 L (39.0-53.0) % MCHC 30.8 L (31.0-37.0) g/dL RDW 17.2 H (11.5-15.5) % Neutrophils # 9.6 H (1.3-7.7) k/uL Lymphocytes # 0.6 L (1.0-4.8) k/uL Chloride (98-107) mmol/L BUN (9-20) mg/dL POC Glucose (mg/dL) 116 H 108 H (75-99) mg/dL Calcium (8.4-10.2) mg/dL 06/06/21 06/06/21 Range/Units 05:05 05:05 WBC (3.8-10.6) k/uL RBC 2.85 L (4.30-5.90) m/uL Hgb 8.4 L (13.0-17.5) gm/dL Hct 26.6 L (39.0-53.0) % MCHC (31.0-37.0) g/dL RDW 17.8 H (11.5-15.5) % Neutrophils # (1.3-7.7) k/uL Lymphocytes # 0.8 L (1.0-4.8) k/uL Chloride 108 H (98-107) mmol/L BUN 27 H (9-20) mg/dL POC Glucose (mg/dL) (75-99) mg/dL Calcium 7.5 L (8.4-10.2) mg/dL Microbiology - Last 24 Hours (Table) 05/30/21 13:35 Blood Culture - Final Blood No Growth after 144 hours Assessment and Plan Plan: #1. Acute abdomen related to inflammatory bowel disease involving the terminal ileum with abscess formation and perforation with pneumoperitoneum, status post surgical resection of the terminal ileum of the colon, ileocolectomy and colectomy of the right colon, on 05/28/2021. For now, the patient is on TPN for nutritional support. The patient remains on a combination of atelectasis and Zosyn. The patient remains on TPN for nutritional support. #2. Acute hypoxic respiratory failure, related to acute abdominal sepsis, and acute COVID-19 related pneumonia, requiring intubation and mechanical ventilation, was successfully weaned and extubated on 06/04/2021 and is currently on 2 L of oxygen. There is a possibility of right hemidiaphragm elevation, possible right hemidiaphragm paralysis #3. Atrial fibrillation with RVR, currently in sinus mechanism. Amiodarone and Cardizem drip have been discontinued, patient has not had a recurrence of A. fib #4. Fever related to acute abdominal sepsis, improved and recovered #5. Hyponatremia, improved, and patient now has hypernatremia related to free water deficit, patient was fluid resuscitated, recovered #6. Acute kidney injury, recovered #7. Acute lactic acidosis, improved, anion gap acidosis has resolved #8. Leukocytosis, improved, #9. Anemia, possibly dilutional, improved with IV diuretics. Plan: T Keep 02 at2 liters Provide an incentive spirometer, and instruct patient on its use Continue antibiotics per surgical recommendations Afebrile overnight, vital signs are stable, remains in sinus mechanism, not requiring any vasopressor support Patient continues on TPN, however he is been passing multiple bowel movements Consider removing NG tube Increase activity as tolerated, On the edge of the bed, possibly in the chair today Consult to physical therapy We'll continue to closely follow Decadron to 4 mg daily Continue with prophylactic dose Lovenox Multivitamins with TPN Continues to do well may consider transfer out of intensive care unit to general medical surgical floor today
[2021-06-06] MEDS: PIPERACILLIN-TAZOBACTAM 3.375 GM in SODIUM CHLORIDE 0.9% 100 ML IVPB SCH ×2 (10:01→15:39)
[2021-06-06 11:08] LABS: Glucose,Whole Blood 105 mg/dL (75-99)
[2021-06-06] MEDS: ENOXAPARIN 40 MG/0.4 ML SYRINGE SQ SCH (11:08)
[2021-06-06] MEDS: DEXAMETHASONE SOD PHOSPHATE 4 MG/ML 1 ML VIAL IVP SCH (11:08)
[2021-06-06] MEDS: HYDROmorphone 1 MG/ML 1 ML SYRINGE IVP PRN ×2 (11:09→18:44)
[2021-06-06] MEDS: PANTOPRAZOLE 40 MG/10 ML VIAL IVP SCH ×2 (11:09→20:36)
[2021-06-06] MEDS: ANIDULAFUNGIN 100 MG in SODIUM CHLORIDE 0.9% 100 ML IVPB SCH (14:03)
--- NOTE | 2021-06-06 14:08 | P.PN ---
Subjective Progress Note Date: 06/06/21 CHIEF COMPLAINT: Crohn's disease with abscess HISTORY OF PRESENT ILLNESS: Patient is postop day #9 status post ileocolectomy with washout of peritoneal abscess for Crohn's disease with abscess. Patient is in the ICU. He was extubated over the weekend. He is having bowel movements and flatus. Reports minimal nausea. Reports minimal abdominal pain. Afebrile. WBC has normalized at 9.0 hemoglobin is 8.4. Patient is out of isolation. PHYSICAL EXAM: VITAL SIGNS: Reviewed. GENERAL: Well-developed in no acute distress. HEENT: No sclera icterus. Extraocular movements grossly intact. Moist buccal mucosa. Head is atraumatic, normocephalic. ABDOMEN: Soft. Nondistended. Incisional dressing clean dry and intact. ADRIAN drain serous output NEUROLOGIC: Intubated and sedated ASSESSMENT: 1. Crohn's disease with abscess status post ileocolectomy with washout of peritoneal abscess 2. Pneumoperitoneum 3. COVID-19 pneumonia PLAN: -Discontinue NG tube -Start clear liquid diet -Continue TPN for nutrition support -Continue ICU management -Continue supportive care -Continue local wound care -Continue antibiotics per ID -DVT prophylaxis Lovenox Physician Instrument Specialist note has been reviewed by physician. Signing provider agrees with the documented findings, assessment, and plan of care. Objective - Vital Signs Vital signs: Vital Signs Temp 98.4 F 06/05/21 20:00 Pulse 70 06/06/21 07:00 Resp 12 06/06/21 07:00 BP 125/64 06/06/21 07:00 Pulse Ox 96 06/06/21 07:00 Intake & Output 06/05/21 06/06/21 06/06/21 18:59 06:59 18:59 Intake Total 509 143 13 Output Total 1445 975 75 Balance -936 -832 -62 Weight 139.9 kg 133 kg 133 kg Intake: IV 509 143 13 0.9 Carrier 170 110 10 Piperacillin-Tazobactam 3 200 .375 gm In Sodium Chloride 0.9% 100 ml @ 25 mls/hr IVPB Q8HR [facility] Rx# :[id number] metroNIDAZOLE-NS PMX 500 100 mg In Saline 1 100ml.bag @ 100 mls/hr IVPB Q6HR [facility] Rx#:[id number] pressure bags 39 33 3 Output: Gastric Drainage 500 Urine 945 975 75 Other: Voiding Method Indwelling Catheter Indwelling Catheter ABP, PAP, CO, CI - Last Documented Arterial Blood Pressure 112/59 - Labs CBC & Chem 7: 06/06/21 05:05 06/06/21 05:05 Labs: Abnormal Lab Results - Last 24 Hours (Table) 06/05/21 06/05/21 06/06/21 Range/Units 04:20 17:57 05:05 WBC 11.0 H (3.8-10.6) k/uL RBC 2.99 L (4.30-5.90) m/uL Hgb 8.8 L (13.0-17.5) gm/dL Hct 28.6 L (39.0-53.0) % MCHC 30.8 L (31.0-37.0) g/dL RDW 17.2 H (11.5-15.5) % Neutrophils # 9.6 H (1.3-7.7) k/uL Lymphocytes # 0.6 L (1.0-4.8) k/uL Chloride 108 H (98-107) mmol/L BUN 27 H (9-20) mg/dL POC Glucose (mg/dL) 108 H (75-99) mg/dL Calcium 7.5 L (8.4-10.2) mg/dL Triglycerides (0.00-149.00) mg/dL 06/06/21 06/06/21 06/06/21 Range/Units 05:05 05:05 11:05 WBC (3.8-10.6) k/uL RBC 2.85 L (4.30-5.90) m/uL Hgb 8.4 L (13.0-17.5) gm/dL Hct 26.6 L (39.0-53.0) % MCHC (31.0-37.0) g/dL RDW 17.8 H (11.5-15.5) % Neutrophils # (1.3-7.7) k/uL Lymphocytes # 0.8 L (1.0-4.8) k/uL Chloride (98-107) mmol/L BUN (9-20) mg/dL POC Glucose (mg/dL) 105 H (75-99) mg/dL Calcium (8.4-10.2) mg/dL Triglycerides 337.00 H (0.00-149.00) mg/dL Microbiology - Last 24 Hours (Table) 05/30/21 13:35 Blood Culture - Final Blood No Growth after 144 hours
[2021-06-06] MEDS: ONDANSETRON 4 MG/2 ML VIAL IVP PRN (15:49)
[2021-06-06 17:33] LABS: Glucose,Whole Blood 109 mg/dL (75-99)
--- NOTE | 2021-06-06 22:02 | P.PN ---
Subjective This is a pleasant 41 years old male with history of Crohn's disease presents on 05/25 for abdominal pain. Found to have mechanical bowel obstruction with pneumoperitoneum, he underwent exploratory laparotomy by surgery team with ileocolectomy for inflamed right colon and ileum and right lower quadrant abdominal abscess status post washout. He has positive wound culture for E. coli and Keke and sputum culture positive for Keke as well and positive and anaerobic culture and is being covered with IV Flagyl, Zosyn and eraxis , with ID team on the case. Also patient is intubated for acute hypoxic respiratory failure secondary to his intra-abdominal sepsis and Covid bilateral pneumonia. However his PEEP is 5 and FiO2 40% and patient is expected to be extubated soon. Pulmonary/critical care team on the case. Remains on dexamethasone, vitamin C, D and zinc. Chest x-ray showing bilateral Covid pneumonia, no significant change. Liver ultrasound showing possible cirrhosis also he has A. fib with rate controlled now Labs show WBC 13.7, hemoglobin 9.2, d-dimer 9.2. 06/05/2020 Patient remains in the ICU status post extubation yesterday, he still monitored closely, I still generally weak, with locked on voice, fully awake and oriented but looks very tired, somewhat tachypneic, he is on 2 L oxygen via nasal cannula. Also distal half NG tube but is getting TPN as well with several bowel movements and no abdominal pain or tenderness. He had recent surgery for infection and abscess and inflammatory bowel disease status post exploratory laparotomy and ileocolectomy. He is kept on antibiotics with Zosyn and Eraxis while Flagyl was discontinued today. He has one culture positive for Keke and E. coli and sputum culture positive for Keke. Also positive and aerobic cultures. Chest x-ray showing patchy bibasilar atelectasis and/or infiltrate in view of history of Covid he was kept on dexamethasone but lower the dose from 6 mg down to 4 mg and placed on Ativan as needed for his periods of agitation. Also he is on multiple vitamins, C, D and zinc. WBC 11,000, hemoglobin 8.8. 06/06/2021 Yesterday patient was awake but drowsy however today he is more alert and interactive. He is willing to start feeding was surgery decide about taking his NG tube today. After that he was a started on liquid diet and will monitor his tolerance to it. His abdominal pain is minimal but he has some loose bowel movement. No much respiratory symptoms, no oropharyngeal mild tachypnea related to his Covid infection. He is on 2 L oxygen via nasal cannula. He remains on dexamethasone 4 mg, vitamin C, D and zinc. Also he was on antibiotics of Zosyn and Eraxis for his intra-abdominal infection. Objective - Vital Signs Vital signs: Vital Signs Temp 98.4 F 06/05/21 20:00 Pulse 70 06/06/21 07:00 Resp 12 06/06/21 07:00 BP 125/64 06/06/21 07:00 Pulse Ox 96 06/06/21 07:00 Intake & Output 06/05/21 06/06/21 06/06/21 18:59 06:59 18:59 Intake Total 509 143 13 Output Total 1445 975 75 Balance -936 -832 -62 Weight 139.9 kg 133 kg Intake: IV 509 143 13 0.9 Carrier 170 110 10 Piperacillin-Tazobactam 3 200 .375 gm In Sodium Chloride 0.9% 100 ml @ 25 mls/hr IVPB Q8HR [facility] Rx# :[id number] metroNIDAZOLE-NS PMX 500 100 mg In Saline 1 100ml.bag @ 100 mls/hr IVPB Q6HR [facility] Rx#:[id number] pressure bags 39 33 3 Output: Gastric Drainage 500 Urine 945 975 75 Other: Voiding Method Indwelling Catheter Indwelling Catheter ABP, PAP, CO, CI - Last Documented Arterial Blood Pressure 112/59 - Exam -GENERAL: The patient is awake and alert and oriented, generally weak HEENT: Pupils are round and equally reacting to light. EOMI. No scleral icterus. No conjunctival pallor. Normocephalic, atraumatic. No pharyngeal erythema. No thyromegaly. CARDIOVASCULAR: S1 and S2 present. No murmurs, rubs, or gallops. PULMONARY: Chest is clear to auscultation, no wheezing or crackles. -ABDOMEN: Soft, nontender, nondistended, normoactive bowel sounds. No palpable organomegaly. Surgical wound is healing and closed MUSCULOSKELETAL: No joint swelling or deformity. EXTREMITIES: No cyanosis, clubbing, or pedal edema. NEUROLOGICAL: Gross neurological examination did not reveal any focal deficits. SKIN: No rashes. no petechiae. - Labs CBC & Chem 7: 06/06/21 05:05 06/06/21 05:05 Labs: Abnormal Lab Results - Last 24 Hours (Table) 06/05/21 06/05/21 06/06/21 Range/Units 04:20 17:57 05:05 WBC 11.0 H (3.8-10.6) k/uL RBC 2.99 L (4.30-5.90) m/uL Hgb 8.8 L (13.0-17.5) gm/dL Hct 28.6 L (39.0-53.0) % MCHC 30.8 L (31.0-37.0) g/dL RDW 17.2 H (11.5-15.5) % Neutrophils # 9.6 H (1.3-7.7) k/uL Lymphocytes # 0.6 L (1.0-4.8) k/uL Chloride 108 H (98-107) mmol/L BUN 27 H (9-20) mg/dL POC Glucose (mg/dL) 108 H (75-99) mg/dL Calcium 7.5 L (8.4-10.2) mg/dL Triglycerides (0.00-149.00) mg/dL 06/06/21 06/06/21 06/06/21 Range/Units 05:05 05:05 11:05 WBC (3.8-10.6) k/uL RBC 2.85 L (4.30-5.90) m/uL Hgb 8.4 L (13.0-17.5) gm/dL Hct 26.6 L (39.0-53.0) % MCHC (31.0-37.0) g/dL RDW 17.8 H (11.5-15.5) % Neutrophils # (1.3-7.7) k/uL Lymphocytes # 0.8 L (1.0-4.8) k/uL Chloride (98-107) mmol/L BUN (9-20) mg/dL POC Glucose (mg/dL) 105 H (75-99) mg/dL Calcium (8.4-10.2) mg/dL Triglycerides 337.00 H (0.00-149.00) mg/dL Microbiology - Last 24 Hours (Table) 05/30/21 13:35 Blood Culture - Final Blood No Growth after 144 hours Assessment and Plan Assessment: Crohn's disease with inflamed ileum and right colon and right abdominal abscess status post exploratory laparotomy and ileocolectomy with washout of peritoneal abscess on 05/28/21 Sepsis and severe infection secondary to E. coli, and aerobes and Keke, secondary to above Bilateral Covid pneumonia Acute hypoxic respiratory failure Increased inflammatory markers Crohn's disease Agitation with possible combination of metabolic and toxic encephalopathy Possible cirrhosis A. fib with RVR, currently her heart rate is controlled Plan: this is a pleasant 41 years old male who presents with intra-abdominal infection, as below and abdominal abscess status post exploratory laparotomy and also with Bilateral Covid pneumonia and hypoxia Continue with vitamin C, vitamin D, and zinc. Continue with dexamethasone Pulmonary team consult Surgery team and infectious disease consult on the case Continue with antibiotics per infectious disease team recommendation and currently is on IV Zosyn and Eraxis Labs and medication were reviewed.. Continue same treatment. Continue with symptomatic treatment. Resume home medication. Monitor lytes and vitals. DVT and GI prophylaxis. Further recommendations as per clinical course of the patient DVT prophylaxis: Subcutaneous Lovenox GI Prophylaxis: Ppi Prognosis is guarded
--- NOTE | 2021-06-06 22:22 | PN ---
PROGRESS NOTE DATE OF SERVICE: 06/06/2021 REASON FOR FOLLOWUP: Intraabdominal abscess. INTERVAL HISTORY: The patient is afebrile. The patient is breathing comfortably. The patient denies having any chest pain or shortness of breath or cough. Abdominal pain is currently controlled. No vomiting or diarrhea. PHYSICAL EXAMINATION: Blood pressure 106/52 with a pulse of 86, temperature 98.4. He is 94% on 2 L nasal cannula. General description is a middle-aged male lying in bed in no distress. Respiratory system: Unlabored breathing, decreased intensity of breath sounds. No wheeze. Heart S1, S2. Regular rate and rhythm. Abdomen soft, no tenderness. LABS: Hemoglobin 8.4, white count 9.0, creatinine 0.71. DIAGNOSTIC IMPRESSION AND PLAN: Patient with intraabdominal abscess, status post drainage. Culture has been positive for E coli, anaerobes and Keke albicans. Patient is covered with Eraxis and Zosyn; to continue while monitoring his clinical course closely. Continue with supportive care. MMODL / IJN: [id number] /
[2021-06-07] LABS: Glucose,Whole Blood 87 mg/dL (75-99)
[2021-06-07] MEDS: PIPERACILLIN-TAZOBACTAM 3.375 GM in SODIUM CHLORIDE 0.9% 100 ML IVPB SCH ×3 (00:06→16:18)
[2021-06-07] MEDS: INSULIN ASPART (NovoLOG) 100 UNIT/ML VIAL SQ SCH ×4 (00:07→19:43)
[2021-06-07] MEDS: [UNRECOGNIZED DRUG - REMARK] IV SCH ×7 (05:23)
[2021-06-07 05:43] LABS: Glucose,Whole Blood 87 mg/dL (75-99)
[2021-06-07 06:35] LABS: ALT 26 U/L (4-49); AST 47 U/L (17-59); African American GFR (CKD) >90 (>60 ml/min/1.73 sqM); Albumin 2.3 g/dL (3.5-5.0); Alkaline Phosphatase 107 U/L (38-126); Anion Gap 3 mmol/L; Blood Urea Nitrogen 25 mg/dL (9-20); Calcium 7.5 mg/dL (8.4-10.2); Carbon Dioxide 25 mmol/L (22-30); Chloride 107 mmol/L (98-107); Glucose 91 mg/dL (74-99); Magnesium 1.9 mg/dL (1.6-2.3); Non-African American GFR(CKD) >90 (>60 ml/min/1.73 sqM); Phosphorus 3.5 mg/dL (2.5-4.5); Potassium 3.7 mmol/L (3.5-5.1); Sodium 135 mmol/L (137-145); Total Bilirubin 2.2 mg/dL (0.2-1.3); Total Protein 5.5 g/dL (6.3-8.2)
[2021-06-07] MEDS: PANTOPRAZOLE 40 MG/10 ML VIAL IVP SCH ×2 (08:15→20:29)
[2021-06-07] MEDS: ENOXAPARIN 40 MG/0.4 ML SYRINGE SQ SCH (08:16)
[2021-06-07] MEDS: DEXAMETHASONE SOD PHOSPHATE 4 MG/ML 1 ML VIAL IVP SCH (08:16)
[2021-06-07] MEDS ORDERED: FUROSEMIDE 10 MG/ML 4 ML VIAL IV STA (08:55)
--- NOTE | 2021-06-07 09:24 | P.PN ---
Subjective Progress Note Date: 06/07/21 Principal diagnosis: Acute abdomen related to abscess formation and perforation with pneumoperitoneum, acute COVID-19 related pneumonia On 05/30/2021 patient seen in follow-up in the intensive care unit, today is postoperative day #3 status post right colectomy, resection of terminal ileum and end-to-end anastomosis for inflammatory bowel disease with abscess formation and perforation. Patient remains intubated, sedated on assist control mode of ventilation with a rate of 24, tidal volumes 500, FiO2 of 80% and PEEP of 10, today's blood gas shows pO2 66 pCO2 37, and pH of 7.37 this was done on 80% FiO2 and subsequently fio2 has been dropped down to 70%. Chest x-ray today shows low lung volumes with elevated right hemidiaphragm and bilateral multifocal increased opacities consistent with COVID-19 infection. Patient was tested again via rapid COVID-19 PCR test and was found to be positive on 05/27/2021. Current drips include 0.9 at 75 ML per hour, Diprivan is a 50 mics per kilo per minute, Cardizem drip is at 20 mg per hour, amiodarone drip 0.5 mg/m, and norepinephrine drip has been weaned off, patient is on TPN at 70 ML per hour, antibiotics including Zosyn and Flagyl. Abdominal wound cultures were positive for E. coli and Keke. Urine culture is been sent, and remains negative thus far, blood cultures have been negative. he has been afebrile overnight, with T-max of 101.9F. Today's blood work reviewed showing a white blood cell count of 5.2, hemoglobin of 7.9, sodium is 147, potassium is 4.0, chloride is 120, CO2 is 18, BUN is 32, and creatinine is 1.13. Urine output is in the order of 100-125 ML per hour. He is currently in sinus mechanism with a rate of 93 BPM. Abdominal incision is clean dry and intact, Bowel sounds are hypoactive. On 05/31/2021 patient seen in follow-up in intensive care unit. Today's postoperative day #4, status post right colectomy, resection of terminal ileum and end-to-end anastomosis for inflammatory bowel disease with abscess formation and perforation. He remains intubated, he is on volume assist control mode of ventilation, with a rate of 24, tidal volume is 500, FiO2 of 70% and PEEP of 10, this morning's blood gas shows pO2 of 54, pCO2 of 39, and pH of 7.31. Today's chest x-ray showed low lung volumes, elevated right hemidiaphragm and bilateral multifocal increased opacities consistent with COVID-19 infection, no significant change from one day earlier. Patient remains on 0.45 at a rate of 150 ML per hour, TPN is a 70 ML per hour, Diprivan is a 75 mics per kilo per minute, and amiodarone drip is at 0.5 mg/m. Today's labs have been reviewed, white blood cell count is 8.2, hemoglobin is 7.9, sodium is improving and is down to 146, chloride is 119, CO2 is 16, B1 is 32, creatinine is 1.01. Abdominal wound cultures were positive for E. coli and Keke and anaerobic gram-negative bacilli. Urine cultures have been negative, sputum Gram stain showed few PMNs, few budding his, rare gram-positive cocci. Not requiring any vasopressor support, urine output is in the order of 70-150 ML per hour. Heart rate is controlled. Remains in sinus mechanism. Remains on Eraxis, Flagyl, and Zosyn. He is on Protonix for GI prophylaxis, and Lovenox 40 mg daily for DVT prophylaxis. Abdominal incisions clean dry and intact, bowel sounds are hypoactive. On 06/01/2021 patient seen in follow-up in intensive care unit, he remains sedated, intubated on mechanical ventilator, on assist-control mode of ventilation with a rate of 24, tidal volume 500, FiO2 of 60% and PEEP of 15. This point his blood gas shows pO2 of 65, pCO2 36, pH of 7.37 this was done on the above-mentioned vent settings and FiO2 of 60%, his pulse ox is 97-98%, FiO2 has been dropped down to 50%. Today's chest x-ray shows hypoventilatory changes interstitial prominence that could be due to vascular crowding or mild pulmonary vascular congestion, mild patchy bibasilar opacities likely related to atelectasis, He is hemodynamically stable. He is currently on 0.9 normal saline at 10 ML per hour, his IV fluids 0.45 at 150 ML per hour, Diprivan is a 75 mics per kilo per minute, amiodarone is at 0.5 mg/m. No vasopressor support. Urine output is in the order of 75-100 ML per hour. Patient is generally fluid overl oaded, he is in over 10 kg positive net fluid balance over the last several days. He remains on TPN furniture no support, bowel sounds are extremely hypoactive. Abdominal incision is clean dry and intact, ADRIAN drain is compressed and draining and there is been 20 mL of serous output in the last 24 hours. Today's labs have been reviewed showing white blood cell count of 8.0, hemoglobin of 7.6, sodium is 143, potassium is 4.8, chloride is 121, CO2 is 17, BUN is 28, creatinine 0.81. Total bilirubin is improving and is down to 1.5, his LFTs are also improved. His abdominal wound culture positive for E. coli and Keke and anaerobic gram negative bacilli, final cultures pending, urine sputum and blood cultures have been negative. No fever overnight.Remains on Eraxis, Flagyl, and Zosyn. He is on Protonix for GI prophylaxis, and Lovenox 40 mg daily for DVT prophylaxis. On 06/02/2021 patient seen in follow-up in intensive care unit, he remains intubated, sedated, on assist-control mode of ventilation with a rate of 24, tidal volume is 500, FiO2 of 50% and PEEP was dropped down to 12 from 15 yesterday. This morning's blood gas shows pO2 of 64, pCO2 36, and pH of 7.41 this was done on above-mentioned vent settings, today's chest x-ray has been reviewed, and ET tube was 7.3 cm from the jossie, and ET tube will be advanced 2 cm, there was increasing moderate right pleural effusion with adjacent atelectasis and/or consolidation, and continued patchy opacity at the left base with suspected background pulmonary vascular congestion. No fevers overnight, patient is hemodynamically stable, no vasopressor support for last 48 hours, yesterday returned his fluids down to KVO, and patient received a dose of IV Lasix 40 mg times one, he is in -1.8 L net fluid balance over the last 24 hours, however he is still insignificantly positive net fluid balance of at least 10 kg since admission. He appears to be quite fluid overloaded with a generalized edema. He has remained in sinus mechanism. Has been no recurrence of A. fib with RVR, he remains on amiodarone drip at 0.5 mg/m, he is on D5W at a rate of 20 ML per hour, TPN is at 30 ML per hour, Diprivan is a 75 mics per kilo per minute, no other drips. Today's labs have been reviewed showing white blood cell count of 12.5, hemoglobin of 8.7, sodium is 142, potassium is 4.6, chloride is 116, CO2 is 18, BUN is 30, creatinine 0.87, LFTs are improved, total bilirubin is down to 1.7, liver ultrasound has been completed showing slightly heterogeneous parenchyma and subtle contour nodularity, correlate for underlying cirrhosis, no gross abnormality of the gallbladder, no biliary ductal dilation. His mid abdominal incision covered with a surgical dressing, however there is some drainage from the distal end of the incision, there are gerald in place, and there is packing of the distal end of the abdominal wound, ADRIAN drain is compressed and draining small amount of serous fluid. Bowel sounds are more active on today's exam, however patient has not passed any gas or stool. On 06/03/2021 patient follow-up in the intensive care unit, he remains sedated and intubated, patient is currently on assist control mode of ventilation with a rate of 24, tidal vitamins 500, FiO2 of 40% and PEEP of 8. This morning his blood gases shows pO2 of 66, pCO2 of 35, a pH of 7.48, this was done on the above-mentioned vent settings. His pulse ox is 97%. His chest x-ray shows small to moderate subpulmonic right pleural fluid, improving bibasilar infiltrates. Patient was given 2 more doses of IV Lasix yesterday, he has massively diuresed, he is in -6.7 L net fluid balance over the last 24 hours, generalized edema has significantly improved, not requiring any vasopressor support, he remains in sinus mechanism, there has been no recurrence of atrial fibrillation, amiodarone drip has been discontinued, his been afebrile overnig ht, IV drips include Diprivan is a 75 mics per kilo per minute, 0.9 and 20 ML per hour, and TPN is a 30 ML per hour, according to the nursing staff patient had a bowel movement last night, bowel sounds are hypoactive. Abdominal incisions clean dry, and the distal portion of the incision is draining less serous fluid, ADRIAN drain is compressed and draining, minimal output. Abdomen is a little less distended, and there is less weeping out of his upper extremities. Vital signs have been stable overnight, today's labs have been reviewed, white blood cell, slightly improved and is down to 11.7, hemoglobin is 9.1, sodium is 138, potassium 3.9, chloride is 111, B1 is 31 creatinine 0.89. Yesterday patient was given a sedation holiday according to the nursing staff he did wake up and did follow commands appropriately. On 06/05/2021 patient seen in follow-up in the intensive care unit, he was forbes ccessfully weaned and extubate her from the mechanical ventilator yesterday on 06/04/2021, tolerating extubation quite well so far, currently on 3 L of oxygen pulse ox is 91-94%, he is awake and alert, he is oriented 3, responding appropriately, breathing comfortably, today's chest x-ray has been reviewed showing Omitted right hemidiaphragm, bilateral opacities consistent with COVID- 19 infection, no significant change from prior exam was noted on today's chest x-ray. Hemodynamically patient is stable, he is on 0.0 normal saline at a rate of 20 ML per hour, he is on TPN at 30 ML per hour, he is in sinus mechanism with a rate of 80 BPM, he still remains on TPN however patient is bowel activity is improving, and patient has passed multiple bowel movements yesterday. Bowel sounds are hypoactive, abdomen is soft, mid abdominal incision is clean dry and intact, minimal drainage at the distal end of the incision, ADRIAN drain with minimal output, compressed and draining. He is breathing comfortably, lung sounds are positive for diffuse crackles at the bases, he is maintaining negative fluid balance, and he is in -1.3 net fluid balance over the last 24 hours, NG tube is in place, and patient has put out 900 mL and gastric output in the last 24 hours, he remains nothing by mouth, he remains on a combination of antibiotics with Zosyn, Eraxis, Flagyl. Vital signs have been stable overnight. Patient remains on Decadron 6 g daily, he is on prophylactic dose Lovenox 40 mg daily. Patient is mildly generally swollen, urine output has been in the order of 75 to 1:30 ML per hour. Patient is eager to get up out of bed, however he is generally weak, physical therapy will be consulted, and we'll try to edge him today, and possibly in a chair later on On today's evaluation on 06/07/2021 patient seen in follow-up in intensive care unit, he is awake and alert, in no acute distress, breathing comfortable, currently on 2 L of oxygen and his pulse ox is 99 - 100%, his been working with incentive spirometer, he is able to achieve 1700 to almost 2000 mL on it today, vitals have been stable overnight, no fever, he remains in sinus mechanism with a rate of 65, blood pressure stable at 113/66 with a mean of 80. Diffuse bibasilar crackles, diminished breath sounds bilaterally, today's chest x-ray has been reviewed in bilateral infiltrates, but improved aeration of the right base. Patient remains on TPN at 30 ML per hour, no other drips, NG tube was discontinued yesterday, patient has been passing bowel movements, patient has positive bowel sounds, clear liquid diet, tolerating it well, no nausea or vomiting. Mid abdominal incision is draining moderate amount of serous fluid, J P drain is in place, with minimal output, compress and draining, today's lab 7 reviewed, CBC still pending, BMP results available showing a sodium of 135, potassium 3.7, chloride is 107, CO2 of 25, BUN of 25, creatinine 0.72. Has been working with physical therapy, yesterday he was able to stand up at the bedside with the help of physical therapy, tolerated activity fairly well, still generally is weak, although improving. Generally patient seems to be fluid overloaded, with edema in his abdominal wall, and bilateral upper and lower extremities. Objective - Vital Signs Vital signs: Vital Signs Temp 97.7 F 06/07/21 08:00 Pulse 75 06/07/21 09:00 Resp 17 06/07/21 09:00 BP 109/64 06/07/21 09:00 Pulse Ox 99 06/07/21 09:00 Intake & Output 06/06/21 06/07/21 06/07/21 18:59 06:59 18:59 Intake Total 666 980.5 39 Output Total 690 855 225 Balance -24 125.5 -186 Weight 133 kg 133.4 kg Intake: IV 666 186 39 0.9 Carrier 130 120 30 Anidulafungin 100 mg In 100 Sodium Chloride 0.9% 100 ml @ 84 mls/hr IVPB DAILY @1500 [facility] Rx#:[id number] Mvi, Adult No.4 with Vit 300 30 K 10 ml Trace (Conc-1Ml/ Dose) 1 ml Sodium Phosphate 6 mmol Magnesium Sulfate gm 1 gm Calcium Gluconate 1 gm In Amino Acid 4.25%-D10w 1,000 ml @ 30 mls/hr IV . BY [facility]ATION [facility] Rx#: [id number] Piperacillin-Tazobactam 3 100 .375 gm In Sodium Chloride 0.9% 100 ml @ 25 mls/hr IVPB Q8HR [facility] Rx# :[id number] pressure bags 36 36 9 Intake, IV Titration 794.5 Amount Potassium Phosphate 6 794.5 mmol Magnesium Sulfate gm 1 gm Calcium Gluconate 1 gm In Amino Acid 4.25%- D10w 1,000 ml @ 30 mls/hr IV .BY DURATION [facility] Rx#: [id number] Output: Urine 690 855 225 Other: Voiding Method Indwelling Catheter Indwelling Catheter # Voids 2 ABP, PAP, CO, CI - Last Documented Arterial Blood Pressure 113/88 - Exam GENERAL EXAM: Awake and alert 41-year-old white male, extubated on 06/04/2021, tolerating extubation well, currently on 2 L of oxygen, doing well, pulse ox is 99-100% HEAD: Normocephalic/atraumatic. EYES: Normal reaction of pupils, equal size. Conjunctiva pink, sclera white. NOSE: Clear with pink turbinates. THROAT: No erythema or exudates. NECK: No masses, no JVD, no thyroid enlargement, no adenopathy. CHEST: No chest wall deformity. Symmetrical expansion. LUNGS: Equal air entry with basilar crackles, diminished breath sounds at the bases CVS: Regular rate and rhythm, normal S1 and S2, no gallops, no murmurs, no rubs ABDOMEN: Soft, nontender. No hepatosplenomegaly, normal bowel sounds, no guarding or rigidity. Abdominal incision is clean dry and intact, right lower quadrant ADRIAN drain with small amount of seros material, ADRIAN drain is compressed and draining. EXTREMITIES: No clubbing, mild generalized edema and edema involving upper and lower extremities, nonpitting. no cyanosis, 2+ pulses and upper and lower extremities. MUSCULOSKELETAL: Muscle strength and tone normal. SPINE: No scoliosis or deformity SKIN: No rashes CENTRAL NERVOUS SYSTEM: Awake and alert, oriented 3 No focal deficits, tone is normal in all 4 extremities. - Labs CBC & Chem 7: 06/06/21 05:05 06/07/21 05:40 Labs: Abnormal Lab Results - Last 24 Hours (Table) 06/06/21 06/06/21 06/06/21 Range/Units 05:05 11:05 17:32 Sodium (137-145) mmol/L BUN (9-20) mg/dL POC Glucose (mg/dL) 105 H 109 H (75-99) mg/dL Calcium (8.4-10.2) mg/dL Total Bilirubin (0.2-1.3) mg/dL Total Protein (6.3-8.2) g/dL Albumin (3.5-5.0) g/dL Triglycerides 337.00 H (0.00-149.00) mg/dL 06/07/21 Range/Units 05:40 Sodium 135 L (137-145) mmol/L BUN 25 H (9-20) mg/dL POC Glucose (mg/dL) (75-99) mg/dL Calcium 7.5 L (8.4-10.2) mg/dL Total Bilirubin 2.2 H (0.2-1.3) mg/dL Total Protein 5.5 L (6.3-8.2) g/dL Albumin 2.3 L (3.5-5.0) g/dL Triglycerides (0.00-149.00) mg/dL Assessment and Plan Plan: Assessment: #1. Acute abdomen related to inflammatory bowel disease involving the terminal ileum with abscess formation and perforation with pneumoperitoneum, status post surgical resection of the terminal ileum of the colon, ileocolectomy and colectomy of the right colon, on 05/28/2021. #2. Acute hypoxic respiratory failure, related to acute abdominal sepsis, and acute COVID-19 related pneumonia, requiring intubation and mechanical ventilation, was successfully weaned and extubated on 06/04/2021 and is currently on 2 L of oxygen. There is a possibility of right hemidiaphragm elevation, possible right hemidiaphragm paralysis #3. Atrial fibrillation with RVR, currently in sinus mechanism. Amiodarone and Cardizem drip have been discontinued, patient has not had a recurrence of A. fib #4. Fever related to acute abdominal sepsis, improved and recovered #5. Hyponatremia, improved, and patient now has hypernatremia related to free water deficit, patient was fluid resuscitated, currently serum sodium is 138 #6. Acute kidney injury, recovered #7. Acute lactic acidosis, improved, anion gap acidosis has resolved #8. Leukocytosis, improved #9. Anemia, possibly dilutional, improved with IV diuretics. Plan: Today's chest x-ray, labs reviewed Continue encouraging deep breathing and coughing Patient is tolerating extubation quite well so far currently on 2 l/min Continue antibiotics per surgical recommendations Vital signs are stable, remains in sinus mechanism, not requiring any vasopressor support Remains on TPN, but has been started on oral diet Tolerating clear liquid diet working with physical therapy Still generally weak but improving slowly Generally he is fluid overloaded, with weaping out of abd incision will benefit from Lasix 40 mg IVP times one Continue with Decadron 4 mg daily and Lovenox 40 mg daily OK to transfer out of ICU to general medical surgical floor today if OK with surgery I performed a history & physical examination of the patient and discussed their management with my nurse practitioner, Ирина Woods. I reviewed the nurse practitioner's note and agree with the documented findings and plan of care. Lung sounds are positive for dim breath sounds throughout the lung moran. The findings and the impression was discussed with the patient. I attest to the documentation by the nurse practitioner. Time with Patient: Greater than 30
--- NOTE | 2021-06-07 09:40 | XR ---
EXAMINATION TYPE: XR chest 1V portable DATE OF EXAM: 06/07/2021 Comparison: 06/05/2021 Clinical History: 41-year-old male COVID Findings: Very low lung volumes with crowded vascular markings. Heart size is accentuated. Patchy opacity at th e right mid and lower lung. Left subclavian CVC at the mid SVC level. Interval removal of NG tube. Impression: Hypoventilatory changes. Right mid and lower lung infiltrate now better seen.
[2021-06-07 11:53] LABS: Glucose,Whole Blood 122 mg/dL (75-99)
--- NOTE | 2021-06-07 15:03 | P.PN ---
Subjective Progress Note Date: 06/07/21 CHIEF COMPLAINT: Crohn's disease with abscess HISTORY OF PRESENT ILLNESS: Patient is postop day #9 status post ileocolectomy with washout of peritoneal abscess for Crohn's disease with abscess. Patient is in the ICU. Patient is having bowel movements and flatus. He is tolerating clear liquid diet. He is going very slow with that. He is on TPN at 30ml/hr. He does report minimal nausea. Denies any abdominal pain. Afebrile. PHYSICAL EXAM: VITAL SIGNS: Reviewed. GENERAL: Well-developed in no acute distress. HEENT: No sclera icterus. Extraocular movements grossly intact. Moist buccal mucosa. Head is atraumatic, normocephalic. ABDOMEN: Soft. Nondistended. Incisional dressing clean dry and intact. And recently changed. ADRIAN drain serous output NEUROLOGIC: Intubated and sedated ASSESSMENT: 1. Crohn's disease with abscess status post ileocolectomy with washout of peritoneal abscess 2. Pneumoperitoneum 3. COVID-19 pneumonia PLAN: -Patient can be transferred to a [facility] floor -Continue clear liquid diet -Continue TPN for nutrition support -Continue local wound care -Continue antibiotics per ID -Encouraged patient to increase activity level -Encouraged patient to use IS -DVT prophylaxis Lovenox Physician Lease Examiner note has been reviewed by physician. Signing provider agrees with the documented findings, assessment, and plan of care. Objective - Vital Signs Vital signs: Vital Signs Temp 97.7 F 06/07/21 08:00 Pulse 73 06/07/21 14:00 Resp 18 06/07/21 14:00 BP 110/72 06/07/21 14:00 Pulse Ox 94 L 06/07/21 14:00 Intake & Output 06/06/21 06/07/21 06/07/21 18:59 06:59 18:59 Intake Total 666 980.5 104 Output Total 226 312 3096 Balance -24 125.5 -4621 Weight 133 kg 133.4 kg Intake: IV 666 186 104 0.9 Carrier 130 120 80 Anidulafungin 100 mg In 100 Sodium Chloride 0.9% 100 ml @ 84 mls/hr IVPB DAILY @1500 [facility] Rx#:[id number] Mvi, Adult No.4 with Vit 300 30 K 10 ml Trace (Conc-1Ml/ Dose) 1 ml Sodium Phosphate 6 mmol Magnesium Sulfate gm 1 gm Calcium Gluconate 1 gm In Amino Acid 4.25%-D10w 1,000 ml @ 30 mls/hr IV . BY DURATION [facility] Rx#: [id number] Piperacillin-Tazobactam 3 100 .375 gm In Sodium Chloride 0.9% 100 ml @ 25 mls/hr IVPB Q8HR [facility] Rx# :[id number] pressure bags 36 36 24 Intake, IV Titration 794.5 Amount Potassium Phosphate 6 794.5 mmol Magnesium Sulfate gm 1 gm Calcium Gluconate 1 gm In Amino Acid 4.25%- D10w 1,000 ml @ 30 mls/hr IV .BY DURATION [facility] Rx#: [id number] Output: Urine 661 075 6265 Other: Voiding Method Indwelling Catheter Indwelling Catheter Indwelling Catheter # Voids 2 ABP, PAP, CO, CI - Last Documented Arterial Blood Pressure 104/76 - Labs CBC & Chem 7: 06/06/21 05:05 06/07/21 05:40 Labs: Abnormal Lab Results - Last 24 Hours (Table) 06/06/21 06/07/21 06/07/21 Range/Units 17:32 05:40 11:51 Sodium 135 L (137-145) mmol/L BUN 25 H (9-20) mg/dL POC Glucose (mg/dL) 109 H 122 H (75-99) mg/dL Calcium 7.5 L (8.4-10.2) mg/dL Total Bilirubin 2.2 H (0.2-1.3) mg/dL Total Protein 5.5 L (6.3-8.2) g/dL Albumin 2.3 L (3.5-5.0) g/dL
[2021-06-07] MEDS: ANIDULAFUNGIN 100 MG in SODIUM CHLORIDE 0.9% 100 ML IVPB SCH (15:39)
[2021-06-07] MEDS ORDERED: FAT EMULSION 20% 500 ML in EMPTY BAG 1 BAG IV ONE (18:00)
[2021-06-07 18:17] LABS: Glucose,Whole Blood 113 mg/dL (75-99)
--- NOTE | 2021-06-07 18:45 | P.PN ---
Subjective This is a pleasant 41 years old male with history of Crohn's disease presents on 05/25 for abdominal pain. Found to have mechanical bowel obstruction with pneumoperitoneum, he underwent exploratory laparotomy by surgery team with ileocolectomy for inflamed right colon and ileum and right lower quadrant abdominal abscess status post washout. He has positive wound culture for E. coli and Keke and sputum culture positive for Keke as well and positive and anaerobic culture and is being covered with IV Flagyl, Zosyn and eraxis , with ID team on the case. Also patient is intubated for acute hypoxic respiratory failure secondary to his intra-abdominal sepsis and Covid bilateral pneumonia. However his PEEP is 5 and FiO2 40% and patient is expected to be extubated soon. Pulmonary/critical care team on the case. Remains on dexamethasone, vitamin C, D and zinc. Chest x-ray showing bilateral Covid pneumonia, no significant change. Liver ultrasound showing possible cirrhosis also he has A. fib with rate controlled now Labs show WBC 13.7, hemoglobin 9.2, d-dimer 9.2. 06/05/2020 Patient remains in the ICU status post extubation yesterday, he still monitored closely, I still generally weak, with locked on voice, fully awake and oriented but looks very tired, somewhat tachypneic, he is on 2 L oxygen via nasal cannula. Also distal half NG tube but is getting TPN as well with several bowel movements and no abdominal pain or tenderness. He had recent surgery for infection and abscess and inflammatory bowel disease status post exploratory laparotomy and ileocolectomy. He is kept on antibiotics with Zosyn and Eraxis while Flagyl was discontinued today. He has one culture positive for Keke and E. coli and sputum culture positive for Keke. Also positive and aerobic cultures. Chest x-ray showing patchy bibasilar atelectasis and/or infiltrate in view of history of Covid he was kept on dexamethasone but lower the dose from 6 mg down to 4 mg and placed on Ativan as needed for his periods of agitation. Also he is on multiple vitamins, C, D and zinc. WBC 11,000, hemoglobin 8.8. 06/06/2021 Yesterday patient was awake but drowsy however today he is more alert and interactive. He is willing to start feeding was surgery decide about taking his NG tube today. After that he was a started on liquid diet and will monitor his tolerance to it. His abdominal pain is minimal but he has some loose bowel movement. No much respiratory symptoms, no oropharyngeal mild tachypnea related to his Covid infection. He is on 2 L oxygen via nasal cannula. He remains on dexamethasone 4 mg, vitamin C, D and zinc. Also he was on antibiotics of Zosyn and Eraxis for his intra-abdominal infection. 06/07/2021 Patient seen and examined in the ICU today, he is mentation is at baseline. He is able to tolerate liquid diet, minimal abdominal pain and he has some loose bowel movement. In the meantime patient To be monitored dysfunction of GI tract, and the same time is treated with antibiotic for his intra-abdominal infection with Zosyn and Eraxis. This COVID-19 infection is a stable, he is minimally tachypneic. He is cont inued on dexamethasone 4 mg daily and multiple vitamin C, D and zinc. Labs reviewed, BMP is unremarkable. Patient was given 1 dose of Lasix. Distal on dexamethasone and multiple vitamins. Also he is on Zosyn and Eraxis. Patient is going to be transferred to [facility] floor today Objective - Vital Signs Vital signs: Vital Signs Temp 97.7 F 06/07/21 08:00 Pulse 75 06/07/21 09:00 Resp 17 06/07/21 09:00 BP 109/64 06/07/21 09:00 Pulse Ox 99 06/07/21 09:00 Intake & Output 06/06/21 06/07/21 06/07/21 18:59 06:59 18:59 Intake Total 666 980.5 39 Output Total 690 855 225 Balance -24 125.5 -186 Weight 133 kg 133.4 kg Intake: IV 666 186 39 0.9 Carrier 130 120 30 Anidulafungin 100 mg In 100 Sodium Chloride 0.9% 100 ml @ 84 mls/hr IVPB DAILY @1500 [facility] Rx#:[id number] Mvi, Adult No.4 with Vit 300 30 K 10 ml Trace (Conc-1Ml/ Dose) 1 ml Sodium Phosphate 6 mmol Magnesium Sulfate gm 1 gm Calcium Gluconate 1 gm In Amino Acid 4.25%-D10w 1,000 ml @ 30 mls/hr IV . BY DURATION [facility] Rx#: [id number] Piperacillin-Tazobactam 3 100 .375 gm In Sodium Chloride 0.9% 100 ml @ 25 mls/hr IVPB Q8HR [facility] Rx# :[id number] pressure bags 36 36 9 Intake, IV Titration 794.5 Amount Potassium Phosphate 6 794.5 mmol Magnesium Sulfate gm 1 gm Calcium Gluconate 1 gm In Amino Acid 4.25%- D10w 1,000 ml @ 30 mls/hr IV .BY DURATION [facility]IEL[facility] Rx#: [id number] Output: Urine 690 855 225 Other: Voiding Method Indwelling Catheter Indwelling Catheter Indwelling Catheter # Voids 2 ABP, PAP, CO, CI - Last Documented Arterial Blood Pressure 113/88 - Exam -GENERAL: The patient is awake and alert and oriented, generally weak HEENT: Pupils are round and equally reacting to light. EOMI. No scleral icterus. No conjunctival pallor. Normocephalic, atraumatic. No pharyngeal erythema. No thyromegaly. CARDIOVASCULAR: S1 and S2 present. No murmurs, rubs, or gallops. PULMONARY: Chest is clear to auscultation, no wheezing or crackles. -ABDOMEN: Soft, nontender, nondistended, normoactive bowel sounds. No palpable organomegaly. Surgical wound is healing and closed MUSCULOSKELETAL: No joint swelling or deformity. EXTREMITIES: No cyanosis, clubbing, or pedal edema. NEUROLOGICAL: Gross neurological examination did not reveal any focal deficits. SKIN: No rashes. no petechiae. - Labs CBC & Chem 7: 06/06/21 05:05 06/07/21 05:40 Labs: Abnormal Lab Results - Last 24 Hours (Table) 06/06/21 06/06/21 06/06/21 Range/Units 05:05 11:05 17:32 Sodium (137-145) mmol/L BUN (9-20) mg/dL POC Glucose (mg/dL) 105 H 109 H (75-99) mg/dL Calcium (8.4-10.2) mg/dL Total Bilirubin (0.2-1.3) mg/dL Total Protein (6.3-8.2) g/dL Albumin (3.5-5.0) g/dL Triglycerides 337.00 H (0.00-149.00) mg/dL 06/07/21 Range/Units 05:40 Sodium 135 L (137-145) mmol/L BUN 25 H (9-20) mg/dL POC Glucose (mg/dL) (75-99) mg/dL Calcium 7.5 L (8.4-10.2) mg/dL Total Bilirubin 2.2 H (0.2-1.3) mg/dL Total Protein 5.5 L (6.3-8.2) g/dL Albumin 2.3 L (3.5-5.0) g/dL Triglycerides (0.00-149.00) mg/dL Assessment and Plan Assessment: Crohn's disease with inflamed ileum and right colon and right abdominal abscess status post exploratory laparotomy and ileocolectomy with washout of peritoneal abscess on 05/28/21 Sepsis and severe infection secondary to E. coli, and aerobes and Keke, secondary to above Bilateral Covid pneumonia Acute hypoxic respiratory failure Increased inflammatory markers Crohn's disease Agitation with possible combination of metabolic and toxic encephalopathy Possible cirrhosis A. fib with RVR, currently her heart rate is controlled Plan: this is a pleasant 41 years old male who presents with intra-abdominal infec tion, as below and abdominal abscess status post exploratory laparotomy and also with Bilateral Covid pneumonia and hypoxia Continue with vitamin C, vitamin D, and zinc. Continue with dexamethasone Pulmonary team consult Surgery team and infectious disease consult on the case Continue with antibiotics per infectious disease team recommendation and currently is on IV Zosyn and Eraxis Labs and medication were reviewed.. Continue same treatment. Continue with symptomatic treatment. Resume home medication. Monitor lytes and vitals. DVT and GI prophylaxis. Further recommendations as per clinical course of the patient DVT prophylaxis: Subcutaneous Lovenox GI Prophylaxis: Ppi Prognosis is guarded
--- NOTE | 2021-06-07 19:44 | PN ---
PROGRESS NOTE date of service is 06/07/2021 REASON FOR FOLLOWUP: Intraabdominal abscess. INTERVAL HISTORY: The patient is afebrile. The patient is breathing comfortably. The patient denies having any chest pain, shortness of breath or cough. Abdominal pain is currently controlled. No nausea, vomiting or diarrhea. PHYSICAL EXAMINATION: Blood pressure 110/72 with a pulse of 83, temperature 98. He is 94% on room air. General description is a young male lying in bed in no distress. Respiratory system: Unlabored breathing, clear to auscultation anteriorly. Heart S1, S2. Regular rate and rhythm. Abdomen soft, no tenderness. LABS: Creatinine 0.72. IMPRESSION/PLAN: Patient with intraabdominal abscess status post drainage. Culture with E coli, anaerobes and Keke. Covered with Zosyn and Eraxis. Transition to oral antibiotic on discharge once ( ) improve. Continue supportive care. MMODL / IJN: [id number] /
[2021-06-07] MEDS: HYDROmorphone 1 MG/ML 1 ML SYRINGE IVP PRN (20:29)
[2021-06-08 00:25] LABS: Glucose,Whole Blood 93 mg/dL (75-99)
[2021-06-08] MEDS: INSULIN ASPART (NovoLOG) 100 UNIT/ML VIAL SQ SCH ×4 (00:25→17:09)
[2021-06-08] MEDS: PIPERACILLIN-TAZOBACTAM 3.375 GM in SODIUM CHLORIDE 0.9% 100 ML IVPB SCH ×3 (00:25→15:56)
[2021-06-08 05:50] LABS: Glucose,Whole Blood 103 mg/dL (75-99)
--- NOTE | 2021-06-08 06:09 | P.CONS ---
History of Present Illness - Chief Complaint Medical debility - History of Present Illness I had the opportunity to see patient for inpatient rehab consultation with regard to medical debility. Patient admitted to [facility] May 25 abdominal pain or 3 days duration. Recent Covid pneumonia stay. Seen by Dr. Akhtar for chronic appendicitis with pneumoperitoneum. On May 28 did undergo a laparoto my. Seen by cardiology for tachycardia. Seen by Dr. Metz. Seen by Dr. Anna for the sepsis. Chest x-rays followed in the right middle and lower lobe infiltrates. Computed tomography scan of abdomen and pelvis did show pneumoperitoneum and consistent with small bowel obstruction. Venous Doppler negative for DVT right or left leg. Chest CT with patchy groundglass appearance consistent with Covid pneumonia. Patient started therapy. OT reports moderate assistance for upper dressing, to person total assistance for lower dressing and toileting and functional mobility/transfers and maximal assistance for bathing. PT prescribed. Previous functional history as elicited from patient: 41-year-old right-handed white male who is lives in one floor home with and one CAD. Works full-time. Previously independent indeed including driving, standing shower and gait without device. PCP Erin Luna. Reports just quit smoking a few months ago. Rare drink. Review of Systems Review of systems: ENT: Denies sneezes or discharge. Eyes: Denies discharge or photophobia. Cardiac: Denies chest pain or palpitation. Pulmonary: Denies cough or shortness of breath. Gastrointestinal: Mild abdominal discomfort. Genitourinary: Denies discharge or frequency. Musculoskeletal: Denies muscle or bone aches. Neurologic: General weakness, in fact can get up on own. Endocrine: Denies shakes or sweats. Oncology: Denies cancers. Dermatologic: Denies rash, itching, pruritus. ALLERGY/immunology: Denies sneezes, rashes. Past Medical History Past Medical History: No Reported History History of Any Multi-Drug Resistant Organisms: None Reported Past Surgical History: Hernia Repair Past Anesthesia/Blood Transfusion Reactions: No Reported Reaction Past Psychological History: No Psychological Hx Reported Smoking Status: Former smoker Past Alcohol Use History: Occasional Past Drug Use History: None Reported Medications and Allergies Home Medications Medication Instructions Recorded Confirmed Type Ibuprofen [Motrin] 800 mg PO Q8H PRN 05/25/21 05/25/21 History Allergies Allergy/AdvReac Type Severity Reaction Status Date / Time acetaminophen [From Tylenol] Allergy Chest Pain Verified 05/25/21 21:37 Physical Exam Vitals: Vital Signs Temp Pulse Pulse Resp BP BP Pulse Ox 06/08/21 02:00 98.3 F 62 16 145/72 94 L 06/07/21 19:12 98.1 F 65 16 134/72 94 L 06/07/21 14:00 73 18 110/72 94 L 06/07/21 13:00 78 21 118/71 95 06/07/21 12:00 73 30 H 109/75 98 06/07/21 11:00 76 29 H 118/77 94 L 06/07/21 10:00 77 18 113/66 98 06/07/21 09:00 75 17 109/64 99 06/07/21 08:35 100 06/07/21 08:00 97.7 F 71 18 113/66 98 06/07/21 07:00 69 16 112/65 96 Intake and Output 06/07/21 06/07/21 06/08/21 14:59 22:59 06:59 Intake Total 104 Output Total 4725 900 Balance -4621 -900 Intake: IV 104 0.9 Carrier 80 pressure bags 24 Output: Urine 4725 900 Other: Voiding Method Indwelling Catheter Indwelling Catheter Weight 134 kg Skin: Good color, texture, turgor. General: Overweight and muscular build and comfortable appearance. Head: Normocephalic, atraumatic. Eyes: Symmetric. Pupils equal round. Ears: Symmetric. Hearing within normal limits. Mouth: Clear. Neck: Supple. Carotid without bruit. Cardiac: Regular rate and rhythm. Lungs: Clear anteriorly and posteriorly. Abdomen: Soft active nontender. Extremities: Normal tone. Neurological: Mental status: Alert, cooperative, pleasant. Cranial nerves: Symmetric facial tone and trapezius. Motor: Active movement all 4 limbs of at least antigravity. Sensation: Intact throughout. DTRs: Symmetric and equal throughout. Mobility: Reports requires assistance to get out of bed and toilet. Results CBC & Chem 7: 06/06/21 05:05 06/07/21 05:40 Labs: Abnormal Lab Results - Last 24 Hours (Table) 06/07/21 06/07/21 06/07/21 Range/Units 05:40 11:51 18:16 Sodium 135 L (137-145) mmol/L BUN 25 H (9-20) mg/dL POC Glucose (mg/dL) 122 H 113 H (75-99) mg/dL Calcium 7.5 L (8.4-10.2) mg/dL Total Bilirubin 2.2 H (0.2-1.3) mg/dL Total Protein 5.5 L (6.3-8.2) g/dL Albumin 2.3 L (3.5-5.0) g/dL 06/08/21 Range/Units 05:49 Sodium (137-145) mmol/L BUN (9-20) mg/dL POC Glucose (mg/dL) 103 H (75-99) mg/dL Calcium (8.4-10.2) mg/dL Total Bilirubin (0.2-1.3) mg/dL Total Protein (6.3-8.2) g/dL Albumin (3.5-5.0) g/dL Assessment and Plan (1) Pneumoperitoneum Current Visit: Yes Status: Acute Code(s): K66.8 - OTHER SPECIFIED DISORDERS OF PERITONEUM SNOMED Code(s): 34433146 (2) Surgical abdomen Current Visit: Yes Status: Acute Code(s): R10.0 - ACUTE ABDOMEN SNOMED Code(s): 8194908 Plan: Comments: At this time discussed with him OT is identified definite safety concerns that would require more than a few days. Await PT note. Discussed likely inpatient rehab with patient and he seems agreeable.
[2021-06-08] MEDS: [UNRECOGNIZED DRUG - REMARK] IV SCH ×7 (06:13)
[2021-06-08] MEDS: ENOXAPARIN 40 MG/0.4 ML SYRINGE SQ SCH (07:19)
[2021-06-08] MEDS: PANTOPRAZOLE 40 MG/10 ML VIAL IVP SCH ×2 (07:20→21:36)
[2021-06-08] MEDS: DEXAMETHASONE SOD PHOSPHATE 4 MG/ML 1 ML VIAL IVP SCH (07:20)
[2021-06-08] MEDS ORDERED: traMADol 50 MG TAB PO PRN (08:22)
[2021-06-08 08:30] LABS: Anisocytosis Slight; Basophils % (A) 0 %; Eosinophils # (A) 0.1 k/uL (0-0.7); Eosinophils % (A) 1 %; HCT 30.3 % (39.0-53.0); HGB 9.6 gm/dL (13.0-17.5); Hypochromasia Slight; Lymphocytes # (A) 0.9 k/uL (1.0-4.8); Lymphocytes % (A) 10 %; MCH 29.6 pg (25.0-35.0); MCHC 31.8 g/dL (31.0-37.0); MCV 93.1 fL (80.0-100.0); Macrocytosis Slight; Mean Platelet Volume 7.8; Monocytes # (A) 0.4 k/uL (0-1.0); Monocytes % (A) 5 %; Neutrophils # (A) 7.6 k/uL (1.3-7.7); Neutrophils % (A) 83 %; Platelet Count 371 k/uL (150-450); RBC 3.26 m/uL (4.30-5.90); RDW 18.3 % (11.5-15.5); WBC 9.2 k/uL (3.8-10.6)
[2021-06-08 08:52] LABS: ALT 32 U/L (4-49); AST 51 U/L (17-59); African American GFR (CKD) >90 (>60 ml/min/1.73 sqM); Albumin 2.6 g/dL (3.5-5.0); Albumin/Globulin Ratio 0.8; Alkaline Phosphatase 118 U/L (38-126); Anion Gap 3 mmol/L; Blood Urea Nitrogen 22 mg/dL (9-20); Calcium 7.8 mg/dL (8.4-10.2); Carbon Dioxide 28 mmol/L (22-30); Chloride 102 mmol/L (98-107); Globulin 3.4 g/dL; Glucose 102 mg/dL (74-99); Magnesium 1.9 mg/dL (1.6-2.3); Non-African American GFR(CKD) >90 (>60 ml/min/1.73 sqM); Phosphorus 3.4 mg/dL (2.5-4.5); Potassium 3.5 mmol/L (3.5-5.1); Sodium 133 mmol/L (137-145); Total Bilirubin 2.1 mg/dL (0.2-1.3)
--- NOTE | 2021-06-08 12:27 | P.PN ---
Subjective This is a pleasant 41 years old male with history of Crohn's disease presents on 05/25 for abdominal pain. Found to have mechanical bowel obstruction with pneumoperitoneum, he underwent exploratory laparotomy by surgery team with ileocolectomy for inflamed right colon and ileum and right lower quadrant abdominal abscess status post washout. He has positive wound culture for E. coli and Keke and sputum culture positive for Keke as well and positive and anaerobic culture and is being covered with IV Flagyl, Zosyn and eraxis , with ID team on the case. Also patient is intubated for acute hypoxic respiratory failure secondary to his intra-abdominal sepsis and Covid bilateral pneumonia. However his PEEP is 5 and FiO2 40% and patient is expected to be extubated soon. Pulmonary/critical care team on the case. Remains on dexamethasone, vitamin C, D and zinc. Chest x-ray showing bilateral Covid pneumonia, no significant change. Liver ultrasound showing possible cirrhosis also he has A. fib with rate controlled now Labs show WBC 13.7, hemoglobin 9.2, d-dimer 9.2. 06/05/2020 Patient remains in the ICU status post extubation yesterday, he still monitored closely, I still generally weak, with locked on voice, fully awake and oriented but looks very tired, somewhat tachypneic, he is on 2 L oxygen via nasal cannula. Also distal half NG tube but is getting TPN as well with several bowel movements and no abdominal pain or tenderness. He had recent surgery for infection and abscess and inflammatory bowel disease status post exploratory laparotomy and ileocolectomy. He is kept on antibiotics with Zosyn and Eraxis while Flagyl was discontinued today. He has one culture positive for Keke and E. coli and sputum culture positive for Keke. Also positive and aerobic cultures. Chest x-ray showing patchy bibasilar atelectasis and/or infiltrate in view of history of Covid he was kept on dexamethasone but lower the dose from 6 mg down to 4 mg and placed on Ativan as needed for his periods of agitation. Also he is on multiple vitamins, C, D and zinc. WBC 11,000, hemoglobin 8.8. 06/06/2021 Yesterday patient was awake but drowsy however today he is more alert and interactive. He is willing to start feeding was surgery decide about taking his NG tube today. After that he was a started on liquid diet and will monitor his tolerance to it. His abdominal pain is minimal but he has some loose bowel movement. No much respiratory symptoms, no oropharyngeal mild tachypnea related to his Covid infection. He is on 2 L oxygen via nasal cannula. He remains on dexamethasone 4 mg, vitamin C, D and zinc. Also he was on antibiotics of Zosyn and Eraxis for his intra-abdominal infection. 06/07/2021 Patient seen and examined in the ICU today, he is mentation is at baseline. He is able to tolerate liquid diet, minimal abdominal pain and he has some loose bowel movement. In the meantime patient To be monitored dysfunction of GI tract, and the same time is treated with antibiotic for his intra-abdominal infection with Zosyn and Eraxis. This COVID-19 infection is a stable, he is minimally tachypneic. He is cont inued on dexamethasone 4 mg daily and multiple vitamin C, D and zinc. Labs reviewed, BMP is unremarkable. Patient was given 1 dose of Lasix. Distal on dexamethasone and multiple vitamins. Also he is on Zosyn and Eraxis. Patient is going to be transferred to [facility] floor today 06/08/2021 Patient is eating well today about 100% of his meals. No chest pain or dyspnea. Abdominal pain is minimal. He states he is having regular bowel movements. He is hemodynamically stable, he is saturating 93% on room air. WBC is 9.2, hemoglobin 9.6, BMP is unremarkable. Patient remains on small dose of dexamethasone, vitamin C, D and zinc. Zosyn and Eraxis. Possible patient will go to inpatient rehab upon discharge Objective - Vital Signs Vital signs: Vital Signs Temp 98.0 F 06/08/21 07:50 Pulse 75 06/08/21 07:50 Resp 15 06/08/21 07:50 BP 109/74 06/08/21 07:50 Pulse Ox 93 L 06/08/21 07:50 Intake & Output 06/07/21 06/08/21 06/08/21 18:59 06:59 18:59 Intake Total 104 Output Total 5625 1000 Balance -5521 -1000 Weight 134 kg Intake: IV 104 0.9 Carrier 80 pressure bags 24 Output: Urine 5625 1000 Other: Voiding Method Indwelling Catheter Indwelling Catheter Indwelling Catheter ABP, PAP, CO, CI - Last Documented Arterial Blood Pressure 104/76 - Exam -GENERAL: The patient is awake and alert and oriented, generally weak HEENT: Pupils are round and equally reacting to light. EOMI. No scleral icterus. No conjunctival pallor. Normocephalic, atraumatic. No pharyngeal erythema. No thyromegaly. CARDIOVASCULAR: S1 and S2 present. No murmurs, rubs, or gallops. PULMONARY: Chest is clear to auscultation, no wheezing or crackles. -ABDOMEN: Soft, nontender, nondistended, normoactive bowel sounds. No palpable organomegaly. Surgical wound is healing and closed MUSCULOSKELETAL: No joint swelling or deformity. EXTREMITIES: No cyanosis, clubbing, or pedal edema. NEUROLOGICAL: Gross neurological examination did not reveal any focal deficits. SKIN: No rashes. no petechiae. - Labs CBC & Chem 7: 06/08/21 08:04 06/08/21 08:04 Labs: Abnormal Lab Results - Last 24 Hours (Table) 06/07/21 06/07/21 06/08/21 Range/Units 11:51 18:16 05:49 RBC (4.30-5.90) m/uL Hgb (13.0-17.5) gm/dL Hct (39.0-53.0) % RDW (11.5-15.5) % Lymphocytes # (1.0-4.8) k/uL Sodium (137-145) mmol/L BUN (9-20) mg/dL Glucose (74-99) mg/dL POC Glucose (mg/dL) 122 H 113 H 103 H (75-99) mg/dL Calcium (8.4-10.2) mg/dL Total Bilirubin (0.2-1.3) mg/dL Total Protein (6.3-8.2) g/dL Albumin (3.5-5.0) g/dL 06/08/21 06/08/21 Range/Units 08:04 08:04 RBC 3.26 L (4.30-5.90) m/uL Hgb 9.6 L (13.0-17.5) gm/dL Hct 30.3 L (39.0-53.0) % RDW 18.3 H (11.5-15.5) % Lymphocytes # 0.9 L (1.0-4.8) k/uL Sodium 133 L (137-145) mmol/L BUN 22 H (9-20) mg/dL Glucose 102 H (74-99) mg/dL POC Glucose (mg/dL) (75-99) mg/dL Calcium 7.8 L (8.4-10.2) mg/dL Total Bilirubin 2.1 H (0.2-1.3) mg/dL Total Protein 6.0 L (6.3-8.2) g/dL Albumin 2.6 L (3.5-5.0) g/dL Assessment and Plan Assessment: Crohn's disease with inflamed ileum and right colon and right abdominal abscess status post exploratory laparotomy and ileocolectomy with washout of peritoneal abscess on 05/28/21 Sepsis and severe infection secondary to E. coli, and aerobes and Keke, secondary to above Bilateral Covid pneumonia Acute hypoxic respiratory failure Increased inflammatory markers Crohn's disease Agitation with possible combination of metabolic and toxic encephalopathy Possible cirrhosis A. fib with RVR, currently her heart rate is controlled Plan: this is a pleasant 41 years old male who presents with intra-abdominal infection, as below and abdominal abscess status post exploratory laparotomy and also with Bilateral Covid pneumonia and hypoxia Continue with vitamin C, vitamin D, and zinc. Continue with dexamethasone Pulmonary team consult Surgery team and infectious disease consult on the case Continue with antibiotics per infectious disease team recommendation and cu rrently is on IV Zosyn and Eraxis Labs and medication were reviewed.. Continue same treatment. Continue with symptomatic treatment. Resume home medication. Monitor lytes and vitals. DVT and GI prophylaxis. Further recommendations as per clinical course of the patient DVT prophylaxis: Subcutaneous Lovenox GI Prophylaxis: Ppi Prognosis is guarded
[2021-06-08 12:49] LABS: Glucose,Whole Blood 117 mg/dL (75-99)
[2021-06-08] MEDS: POTASSIUM CHLORIDE 20 MEQ in WATER FOR INJECTION 1 100ML.BAG IVPB SCH ×2 (13:10→14:26)
[2021-06-08] MEDS: ANIDULAFUNGIN 100 MG in SODIUM CHLORIDE 0.9% 100 ML IVPB SCH (14:26)
--- NOTE | 2021-06-08 15:58 | P.PN ---
Subjective Progress Note Date: 06/08/21 CHIEF COMPLAINT: Crohn's disease with abscess HISTORY OF PRESENT ILLNESS: Patient is postop day #10 status post ileocolectomy with washout of peritoneal abscess for Crohn's disease with abscess. Patient t ransferred out of the ICU yesterday. Patient is having bowel movements and flatus. He is tolerating clear liquid diet. He is sitting up at bedside chair. His pain is controlled. He was able to take a few steps with physical therapy. He is hungry and requesting advancement diet. Afebrile. WBC 9.2 hemoglobin 9.6 sodium 133 potassium 3.5 creatinine 0.75 PHYSICAL EXAM: VITAL SIGNS: Reviewed. GENERAL: Well-developed in no acute distress. HEENT: No sclera icterus. Extraocular movements grossly intact. Moist buccal mucosa. Head is atraumatic, normocephalic. ABDOMEN: Soft. Nondistended. Incisional dressing clean dry and intact. ADRIAN drain serous output NEUROLOGIC: awake and alert and orientated to 3 ASSESSMENT: 1. Crohn's disease with abscess status post ileocolectomy with washout of peritoneal abscess 2. Pneumoperitoneum 3. COVID-19 pneumonia PLAN: -Advance diet to full liquids and then has tolerated -Wean patient off the TPN -Continue local wound care -Continue antibiotics per ID -Encouraged patient to increase activity level -Encouraged patient to use IS -DVT prophylaxis Lovenox Physician Unemployment Inspector note has been reviewed by physician. Signing provider agrees with the documented findings, assessment, and plan of care. Objective - Vital Signs Vital signs: Vital Signs Temp 98.0 F 06/08/21 14:00 Pulse 60 06/08/21 14:00 Resp 14 06/08/21 14:00 BP 99/65 06/08/21 14:00 Pulse Ox 95 06/08/21 14:00 Intake & Output 06/07/21 06/08/21 06/08/21 18:59 06:59 18:59 Intake Total 104 Output Total 5625 1000 Balance -5521 -1000 Weight 134 kg Intake: IV 104 0.9 Carrier 80 pressure bags 24 Output: Urine 5625 1000 Other: Voiding Method Indwelling Catheter Indwelling Catheter Indwelling Catheter ABP, PAP, CO, CI - Last Documented Arterial Blood Pressure 104/76 - Labs CBC & Chem 7: 06/08/21 08:04 06/08/21 08:04 Labs: Abnormal Lab Results - Last 24 Hours (Table) 06/07/21 06/08/21 06/08/21 Range/Units 18:16 05:49 08:04 RBC (4.30-5.90) m/uL Hgb (13.0-17.5) gm/dL Hct (39.0-53.0) % RDW (11.5-15.5) % Lymphocytes # (1.0-4.8) k/uL Sodium 133 L (137-145) mmol/L BUN 22 H (9-20) mg/dL Glucose 102 H (74-99) mg/dL POC Glucose (mg/dL) 113 H 103 H (75-99) mg/dL Calcium 7.8 L (8.4-10.2) mg/dL Total Bilirubin 2.1 H (0.2-1.3) mg/dL Total Protein 6.0 L (6.3-8.2) g/dL Albumin 2.6 L (3.5-5.0) g/dL 06/08/21 06/08/21 Range/Units 08:04 12:47 RBC 3.26 L (4.30-5.90) m/uL Hgb 9.6 L (13.0-17.5) gm/dL Hct 30.3 L (39.0-53.0) % RDW 18.3 H (11.5-15.5) % Lymphocytes # 0.9 L (1.0-4.8) k/uL Sodium (137-145) mmol/L BUN (9-20) mg/dL Glucose (74-99) mg/dL POC Glucose (mg/dL) 117 H (75-99) mg/dL Calcium (8.4-10.2) mg/dL Total Bilirubin (0.2-1.3) mg/dL Total Protein (6.3-8.2) g/dL Albumin (3.5-5.0) g/dL
[2021-06-08 16:40] LABS: Glucose,Whole Blood 115 mg/dL (75-99)
--- NOTE | 2021-06-08 17:10 | P.PN ---
Subjective Progress Note Date: 06/08/21 Principal diagnosis: Acute abdomen related to abscess formation and perforation with pneumoperitoneum, acute COVID-19 related pneumonia On 05/30/2021 patient seen in follow-up in the intensive care unit, today is postoperative day #3 status post right colectomy, resection of terminal ileum and end-to-end anastomosis for inflammatory bowel disease with abscess formation and perforation. Patient remains intubated, sedated on assist control mode of ventilation with a rate of 24, tidal volumes 500, FiO2 of 80% and PEEP of 10, today's blood gas shows pO2 66 pCO2 37, and pH of 7.37 this was done on 80% FiO2 and subsequently fio2 has been dropped down to 70%. Chest x-ray today shows low lung volumes with elevated right hemidiaphragm and bilateral multifocal increased opacities consistent with COVID-19 infection. Patient was tested again via rapid COVID-19 PCR test and was found to be positive on 05/27/2021. Current drips include 0.9 at 75 ML per hour, Diprivan is a 50 mics per kilo per minute, Cardizem drip is at 20 mg per hour, amiodarone drip 0.5 mg/m, and norepinephrine drip has been weaned off, patient is on TPN at 70 ML per hour, antibiotics including Zosyn and Flagyl. Abdominal wound cultures were positive for E. coli and Keke. Urine culture is been sent, and remains negative thus far, blood cultures have been negative. he has been afebrile overnight, with T-max of 101.9F. Today's blood work reviewed showing a white blood cell count of 5.2, hemoglobin of 7.9, sodium is 147, potassium is 4.0, chloride is 120, CO2 is 18, BUN is 32, and creatinine is 1.13. Urine output is in the order of 100-125 ML per hour. He is currently in sinus mechanism with a rate of 93 BPM. Abdominal incision is clean dry and intact, Bowel sounds are hypoactive. On 05/31/2021 patient seen in follow-up in intensive care unit. Today's postoperative day #4, status post right colectomy, resection of terminal ileum and end-to-end anastomosis for inflammatory bowel disease with abscess formation and perforation. He remains intubated, he is on volume assist control mode of ventilation, with a rate of 24, tidal volume is 500, FiO2 of 70% and PEEP of 10, this morning's blood gas shows pO2 of 54, pCO2 of 39, and pH of 7.31. Today's chest x-ray showed low lung volumes, elevated right hemidiaphragm and bilateral multifocal increased opacities consistent with COVID-19 infection, no significant change from one day earlier. Patient remains on 0.45 at a rate of 150 ML per hour, TPN is a 70 ML per hour, Diprivan is a 75 mics per kilo per minute, and amiodarone drip is at 0.5 mg/m. Today's labs have been reviewed, white blood cell count is 8.2, hemoglobin is 7.9, sodium is improving and is down to 146, chloride is 119, CO2 is 16, B1 is 32, creatinine is 1.01. Abdominal wound cultures were positive for E. coli and Keke and anaerobic gram-negative bacilli. Urine cultures have been negative, sputum Gram stain showed few PMNs, few budding his, rare gram-positive cocci. Not requiring any vasopressor support, urine output is in the order of 70-150 ML per hour. Heart rate is controlled. Remains in sinus mechanism. Remains on Eraxis, Flagyl, and Zosyn. He is on Protonix for GI prophylaxis, and Lovenox 40 mg daily for DVT prophylaxis. Abdominal incisions clean dry and intact, bowel sounds are hypoactive. On 06/01/2021 patient seen in follow-up in intensive care unit, he remains sedated, intubated on mechanical ventilator, on assist-control mode of ventilation with a rate of 24, tidal volume 500, FiO2 of 60% and PEEP of 15. This point his blood gas shows pO2 of 65, pCO2 36, pH of 7.37 this was done on the above-mentioned vent settings and FiO2 of 60%, his pulse ox is 97-98%, FiO2 has been dropped down to 50%. Today's chest x-ray shows hypoventilatory changes interstitial prominence that could be due to vascular crowding or mild pulmonary vascular congestion, mild patchy bibasilar opacities likely related to atelectasis, He is hemodynamically stable. He is currently on 0.9 normal saline at 10 ML per hour, his IV fluids 0.45 at 150 ML per hour, Diprivan is a 75 mics per kilo per minute, amiodarone is at 0.5 mg/m. No vasopressor support. Urine output is in the order of 75-100 ML per hour. Patient is generally fluid overl oaded, he is in over 10 kg positive net fluid balance over the last several days. He remains on TPN furniture no support, bowel sounds are extremely hypoactive. Abdominal incision is clean dry and intact, ADRIAN drain is compressed and draining and there is been 20 mL of serous output in the last 24 hours. Today's labs have been reviewed showing white blood cell count of 8.0, hemoglobin of 7.6, sodium is 143, potassium is 4.8, chloride is 121, CO2 is 17, BUN is 28, creatinine 0.81. Total bilirubin is improving and is down to 1.5, his LFTs are also improved. His abdominal wound culture positive for E. coli and Keke and anaerobic gram negative bacilli, final cultures pending, urine sputum and blood cultures have been negative. No fever overnight.Remains on Eraxis, Flagyl, and Zosyn. He is on Protonix for GI prophylaxis, and Lovenox 40 mg daily for DVT prophylaxis. On 06/02/2021 patient seen in follow-up in intensive care unit, he remains intubated, sedated, on assist-control mode of ventilation with a rate of 24, tidal volume is 500, FiO2 of 50% and PEEP was dropped down to 12 from 15 yesterday. This morning's blood gas shows pO2 of 64, pCO2 36, and pH of 7.41 this was done on above-mentioned vent settings, today's chest x-ray has been reviewed, and ET tube was 7.3 cm from the jossie, and ET tube will be advanced 2 cm, there was increasing moderate right pleural effusion with adjacent atelectasis and/or consolidation, and continued patchy opacity at the left base with suspected background pulmonary vascular congestion. No fevers overnight, patient is hemodynamically stable, no vasopressor support for last 48 hours, yesterday returned his fluids down to KVO, and patient received a dose of IV Lasix 40 mg times one, he is in -1.8 L net fluid balance over the last 24 hours, however he is still insignificantly positive net fluid balance of at least 10 kg since admission. He appears to be quite fluid overloaded with a generalized edema. He has remained in sinus mechanism. Has been no recurrence of A. fib with RVR, he remains on amiodarone drip at 0.5 mg/m, he is on D5W at a rate of 20 ML per hour, TPN is at 30 ML per hour, Diprivan is a 75 mics per kilo per minute, no other drips. Today's labs have been reviewed showing white blood cell count of 12.5, hemoglobin of 8.7, sodium is 142, potassium is 4.6, chloride is 116, CO2 is 18, BUN is 30, creatinine 0.87, LFTs are improved, total bilirubin is down to 1.7, liver ultrasound has been completed showing slightly heterogeneous parenchyma and subtle contour nodularity, correlate for underlying cirrhosis, no gross abnormality of the gallbladder, no biliary ductal dilation. His mid abdominal incision covered with a surgical dressing, however there is some drainage from the distal end of the incision, there are gerald in place, and there is packing of the distal end of the abdominal wound, ADRIAN drain is compressed and draining small amount of serous fluid. Bowel sounds are more active on today's exam, however patient has not passed any gas or stool. On 06/03/2021 patient follow-up in the intensive care unit, he remains sedated and intubated, patient is currently on assist control mode of ventilation with a rate of 24, tidal vitamins 500, FiO2 of 40% and PEEP of 8. This morning his blood gases shows pO2 of 66, pCO2 of 35, a pH of 7.48, this was done on the above-mentioned vent settings. His pulse ox is 97%. His chest x-ray shows small to moderate subpulmonic right pleural fluid, improving bibasilar infiltrates. Patient was given 2 more doses of IV Lasix yesterday, he has massively diuresed, he is in -6.7 L net fluid balance over the last 24 hours, generalized edema has significantly improved, not requiring any vasopressor support, he remains in sinus mechanism, there has been no recurrence of atrial fibrillation, amiodarone drip has been discontinued, his been afebrile overnig ht, IV drips include Diprivan is a 75 mics per kilo per minute, 0.9 and 20 ML per hour, and TPN is a 30 ML per hour, according to the nursing staff patient had a bowel movement last night, bowel sounds are hypoactive. Abdominal incisions clean dry, and the distal portion of the incision is draining less serous fluid, ADRIAN drain is compressed and draining, minimal output. Abdomen is a little less distended, and there is less weeping out of his upper extremities. Vital signs have been stable overnight, today's labs have been reviewed, white blood cell, slightly improved and is down to 11.7, hemoglobin is 9.1, sodium is 138, potassium 3.9, chloride is 111, B1 is 31 creatinine 0.89. Yesterday patient was given a sedation holiday according to the nursing staff he did wake up and did follow commands appropriately. On 06/05/2021 patient seen in follow-up in the intensive care unit, he was forbes ccessfully weaned and extubate her from the mechanical ventilator yesterday on 06/04/2021, tolerating extubation quite well so far, currently on 3 L of oxygen pulse ox is 91-94%, he is awake and alert, he is oriented 3, responding appropriately, breathing comfortably, today's chest x-ray has been reviewed showing Omitted right hemidiaphragm, bilateral opacities consistent with COVID- 19 infection, no significant change from prior exam was noted on today's chest x-ray. Hemodynamically patient is stable, he is on 0.0 normal saline at a rate of 20 ML per hour, he is on TPN at 30 ML per hour, he is in sinus mechanism with a rate of 80 BPM, he still remains on TPN however patient is bowel activity is improving, and patient has passed multiple bowel movements yesterday. Bowel sounds are hypoactive, abdomen is soft, mid abdominal incision is clean dry and intact, minimal drainage at the distal end of the incision, ADRIAN drain with minimal output, compressed and draining. He is breathing comfortably, lung sounds are positive for diffuse crackles at the bases, he is maintaining negative fluid balance, and he is in -1.3 net fluid balance over the last 24 hours, NG tube is in place, and patient has put out 900 mL and gastric output in the last 24 hours, he remains nothing by mouth, he remains on a combination of antibiotics with Zosyn, Eraxis, Flagyl. Vital signs have been stable overnight. Patient remains on Decadron 6 g daily, he is on prophylactic dose Lovenox 40 mg daily. Patient is mildly generally swollen, urine output has been in the order of 75 to 1:30 ML per hour. Patient is eager to get up out of bed, however he is generally weak, physical therapy will be consulted, and we'll try to edge him today, and possibly in a chair later on On today's evaluation on 06/07/2021 patient seen in follow-up in intensive care unit, he is awake and alert, in no acute distress, breathing comfortable, currently on 2 L of oxygen and his pulse ox is 99 - 100%, his been working with incentive spirometer, he is able to achieve 1700 to almost 2000 mL on it today, vitals have been stable overnight, no fever, he remains in sinus mechanism with a rate of 65, blood pressure stable at 113/66 with a mean of 80. Diffuse bibasilar crackles, diminished breath sounds bilaterally, today's chest x-ray has been reviewed in bilateral infiltrates, but improved aeration of the right base. Patient remains on TPN at 30 ML per hour, no other drips, NG tube was discontinued yesterday, patient has been passing bowel movements, patient has positive bowel sounds, clear liquid diet, tolerating it well, no nausea or vomiting. Mid abdominal incision is draining moderate amount of serous fluid, J P drain is in place, with minimal output, compress and draining, today's lab 7 reviewed, CBC still pending, BMP results available showing a sodium of 135, potassium 3.7, chloride is 107, CO2 of 25, BUN of 25, creatinine 0.72. Has been working with physical therapy, yesterday he was able to stand up at the bedside with the help of physical therapy, tolerated activity fairly well, still generally is weak, although improving. Generally patient seems to be fluid overloaded, with edema in his abdominal wall, and bilateral upper and lower extremities. On 06/08/2021 patient seen in follow-up on medical surgical floor, yesterday he was transferred out of intensive care unit, he is doing very well, he is currently on room air, with pulse ox of 95%, his been afebrile, hemodynamically patient has been stable, she still continues on TPN, however patient was also started on full liquid diet and he is tolerating it very well, no fever or chills, patient continues on antibiotics, today's blood work shows white blood cell count of 9.2, hemoglobin of 9.6, electrolytes were reviewed, showing sodium of 133 and the rest of electrolytes and renal profile were unremarkable. Patient has been on a daily dose of IV Lasix, and he is in -6.5 L net fluid balance over the last 24 hours, overall fluid volume status has significantly improved. Objective - Vital Signs Vital signs: Vital Signs Temp 98.0 F 06/08/21 14:00 Pulse 60 06/08/21 14:00 Resp 14 06/08/21 14:00 BP 99/65 06/08/21 14:00 Pulse Ox 95 06/08/21 14:00 Intake & Output 06/07/21 06/08/21 06/08/21 18:59 06:59 18:59 Intake Total 104 Output Total 5625 1000 Balance -5521 -1000 Weight 134 kg Intake: IV 104 0.9 Carrier 80 pressure bags 24 Output: Urine 5625 1000 Other: Voiding Method Indwelling Catheter Indwelling Catheter Indwelling Catheter ABP, PAP, CO, CI - Last Documented Arterial Blood Pressure 104/76 - Exam GENERAL EXAM: Awake and alert 41-year-old white male, extubated on 06/04/2021, tolerating extubation well, currently on 2 L of oxygen, doing well, pulse ox is 99-100% HEAD: Normocephalic/atraumatic. EYES: Normal reaction of pupils, equal size. Conjunctiva pink, sclera white. NOSE: Clear with pink turbinates. THROAT: No erythema or exudates. NECK: No masses, no JVD, no thyroid enlargement, no adenopathy. CHEST: No chest wall deformity. Symmetrical expansion. LUNGS: Equal air entry with basilar crackles, diminished breath sounds at the bases CVS: Regular rate and rhythm, normal S1 and S2, no gallops, no murmurs, no rubs ABDOMEN: Soft, nontender. No hepatosplenomegaly, normal bowel sounds, no guarding or rigidity. Abdominal incision is clean dry and intact, right lower quadrant ADRIAN drain with small amount of seros material, ADRIAN drain is compressed and draining. EXTREMITIES: No clubbing, mild generalized edema and edema involving upper and lower extremities, nonpitting. no cyanosis, 2+ pulses and upper and lower extremities. MUSCULOSKELETAL: Muscle strength and tone normal. SPINE: No scoliosis or deformity SKIN: No rashes CENTRAL NERVOUS SYSTEM: Awake and alert, oriented 3 No focal deficits, tone is normal in all 4 extremities. - Labs CBC & Chem 7: 06/08/21 08:04 06/08/21 08:04 Labs: Abnormal Lab Results - Last 24 Hours (Table) 06/07/21 06/08/21 06/08/21 Range/Units 18:16 05:49 08:04 RBC (4.30-5.90) m/uL Hgb (13.0-17.5) gm/dL Hct (39.0-53.0) % RDW (11.5-15.5) % Lymphocytes # (1.0-4.8) k/uL Sodium 133 L (137-145) mmol/L BUN 22 H (9-20) mg/dL Glucose 102 H (74-99) mg/dL POC Glucose (mg/dL) 113 H 103 H (75-99) mg/dL Calcium 7.8 L (8.4-10.2) mg/dL Total Bilirubin 2.1 H (0.2-1.3) mg/dL Total Protein 6.0 L (6.3-8.2) g/dL Albumin 2.6 L (3.5-5.0) g/dL 06/08/21 06/08/21 06/08/21 Range/Units 08:04 12:47 16:38 RBC 3.26 L (4.30-5.90) m/uL Hgb 9.6 L (13.0-17.5) gm/dL Hct 30.3 L (39.0-53.0) % RDW 18.3 H (11.5-15.5) % Lymphocytes # 0.9 L (1.0-4.8) k/uL Sodium (137-145) mmol/L BUN (9-20) mg/dL Glucose (74-99) mg/dL POC Glucose (mg/dL) 117 H 115 H (75-99) mg/dL Calcium (8.4-10.2) mg/dL Total Bilirubin (0.2-1.3) mg/dL Total Protein (6.3-8.2) g/dL Albumin (3.5-5.0) g/dL Assessment and Plan Plan: Assessment: #1. Acute abdomen related to inflammatory bowel disease involving the terminal ileum with abscess formation and perforation with pneumoperitoneum, status post surgical resection of the terminal ileum of the colon, ileocolectomy and colectomy of the right colon, on 05/28/2021. #2. Acute hypoxic respiratory failure, related to acute abdominal sepsis, and acute COVID-19 related pneumonia, requiring intubation and mechanical ventilation, was successfully weaned and extubated on 06/04/2021 and is currently on 2 L of oxygen. Currently significantly improved the patient is now on room air #3. Atrial fibrillation with RVR, currently in sinus mechanism. Amiodarone and Cardizem drip have been discontinued, patient has not had a recurrence of A. fib #4. Fever related to acute abdominal sepsis, improved and recovered #5. Hyponatremia, improved, and patient now has hypernatremia related to free water deficit, patient was fluid resuscitated, currently serum sodium is 138 #6. Acute kidney injury, recovered #7. Acute lactic acidosis, improved, anion gap acidosis has resolved #8. Leukocytosis, improved #9. Anemia, possibly dilutional, improved with IV diuretics. Plan: Patient is doing quite well He is on room air Continue encouraging deep breathing and coughing Lasix has been discontinued, patient has been sufficiently diuresed He is breathing comfortably, Encourage deep breathing and coughing and incentive spirometry use Stable from pulmonary perspective Antibiotics per ID service recommendations Patient has been started on full liquid diet and is tolerating it well Pulmonary service will follow on as-needed basis I performed a history & physical examination of the patient and discussed their management with my nurse practitioner, Ирина Woods. I reviewed the nurse practitioner's note and agree with the documented findings and plan of care. Lung sounds are positive for dim breath sounds throughout the lung moran. The findings and the impression was discussed with the patient. I attest to the documentation by the nurse practitioner. Time with Patient: Less than 30
--- NOTE | 2021-06-08 23:03 | PN ---
PROGRESS NOTE DATE OF SERVICE: 06/08/2021 REASON FOR FOLLOWUP: Intraabdominal abscess. INTERVAL HISTORY: Patient is afebrile. The patient is currently breathing comfortably on room air. The patient denies having any chest pain. No shortness of breath or cough. Abdominal pain is currently controlled. No nausea, vomiting or diarrhea. PHYSICAL EXAMINATION: Blood pressure 124/68 with a pulse of 84, temperature 97.8. He is 95% on room air. General description is a middle-aged male up in the chair in no distress. Respiratory system: Unlabored breathing, clear to auscultation anteriorly. Heart S1, S2. Regular rate and rhythm. Abdomen soft, no tenderness. LABORATORY DATA: Hemoglobin 11.4, white count 9.2, creatinine 0.75. DIAGNOSTIC IMPRESSION AND PLAN: Patient with abdominal abscess, status post laparotomy and drainage of the abscess. Culture positive for anaerobes. Keke is currently covered with Zosyn. Antibiotics will be transition to oral on discharge and monitor clinical course closely. MMODL / IJN: [id number] /
[2021-06-09 00:05] LABS: Glucose,Whole Blood 87 mg/dL (75-99)
[2021-06-09] MEDS: INSULIN ASPART (NovoLOG) 100 UNIT/ML VIAL SQ SCH ×3 (00:28→12:24)
[2021-06-09] MEDS: PIPERACILLIN-TAZOBACTAM 3.375 GM in SODIUM CHLORIDE 0.9% 100 ML IVPB SCH ×2 (00:29→09:11)
[2021-06-09] MEDS ORDERED: [UNRECOGNIZED DRUG - REMARK] IV SCH ×8 (06:00)
[2021-06-09 06:09] LABS: Glucose,Whole Blood 96 mg/dL (75-99)
[2021-06-09] MEDS: [UNRECOGNIZED DRUG - REMARK] IV SCH ×7 (06:11)
[2021-06-09 07:13] LABS: ALT 39 U/L (4-49); African American GFR (CKD) >90 (>60 ml/min/1.73 sqM); Albumin 2.6 g/dL (3.5-5.0); Albumin/Globulin Ratio 0.7; Anion Gap 6 mmol/L; Blood Urea Nitrogen 18 mg/dL (9-20); Calcium 7.9 mg/dL (8.4-10.2); Carbon Dioxide 22 mmol/L (22-30); Chloride 105 mmol/L (98-107); Globulin 3.5 g/dL; Glucose 97 mg/dL (74-99); Non-African American GFR(CKD) >90 (>60 ml/min/1.73 sqM); Sodium 133 mmol/L (137-145); Total Bilirubin 2.4 mg/dL (0.2-1.3); Total Protein 6.1 g/dL (6.3-8.2)
[2021-06-09 07:22] LABS: AST 60 U/L (17-59); Alkaline Phosphatase 120 U/L (38-126); Magnesium 1.9 mg/dL (1.6-2.3); Phosphorus 3.7 mg/dL (2.5-4.5); Potassium 3.9 mmol/L (3.5-5.1)
[2021-06-09] MEDS: ENOXAPARIN 40 MG/0.4 ML SYRINGE SQ SCH (09:11)
[2021-06-09] MEDS: PANTOPRAZOLE 40 MG/10 ML VIAL IVP SCH (09:11)
[2021-06-09] MEDS: DEXAMETHASONE SOD PHOSPHATE 4 MG/ML 1 ML VIAL IVP SCH (09:11)
--- NOTE | 2021-06-09 11:47 | P.PN ---
Subjective This is a pleasant 41 years old male with history of Crohn's disease presents on 05/25 for abdominal pain. Found to have mechanical bowel obstruction with pneumoperitoneum, he underwent exploratory laparotomy by surgery team with ileocolectomy for inflamed right colon and ileum and right lower quadrant abdominal abscess status post washout. He has positive wound culture for E. coli and Keke and sputum culture positive for Keke as well and positive and anaerobic culture and is being covered with IV Flagyl, Zosyn and eraxis , with ID team on the case. Also patient is intubated for acute hypoxic respiratory failure secondary to his intra-abdominal sepsis and Covid bilateral pneumonia. However his PEEP is 5 and FiO2 40% and patient is expected to be extubated soon. Pulmonary/critical care team on the case. Remains on dexamethasone, vitamin C, D and zinc. Chest x-ray showing bilateral Covid pneumonia, no significant change. Liver ultrasound showing possible cirrhosis also he has A. fib with rate controlled now Labs show WBC 13.7, hemoglobin 9.2, d-dimer 9.2. 06/05/2020 Patient remains in the ICU status post extubation yesterday, he still monitored closely, I still generally weak, with locked on voice, fully awake and oriented but looks very tired, somewhat tachypneic, he is on 2 L oxygen via nasal cannula. Also distal half NG tube but is getting TPN as well with several bowel movements and no abdominal pain or tenderness. He had recent surgery for infection and abscess and inflammatory bowel disease status post exploratory laparotomy and ileocolectomy. He is kept on antibiotics with Zosyn and Eraxis while Flagyl was discontinued today. He has one culture positive for Keke and E. coli and sputum culture positive for Keke. Also positive and aerobic cultures. Chest x-ray showing patchy bibasilar atelectasis and/or infiltrate in view of history of Covid he was kept on dexamethasone but lower the dose from 6 mg down to 4 mg and placed on Ativan as needed for his periods of agitation. Also he is on multiple vitamins, C, D and zinc. WBC 11,000, hemoglobin 8.8. 06/06/2021 Yesterday patient was awake but drowsy however today he is more alert and interactive. He is willing to start feeding was surgery decide about taking his NG tube today. After that he was a started on liquid diet and will monitor his tolerance to it. His abdominal pain is minimal but he has some loose bowel movement. No much respiratory symptoms, no oropharyngeal mild tachypnea related to his Covid infection. He is on 2 L oxygen via nasal cannula. He remains on dexamethasone 4 mg, vitamin C, D and zinc. Also he was on antibiotics of Zosyn and Eraxis for his intra-abdominal infection. 06/07/2021 Patient seen and examined in the ICU today, he is mentation is at baseline. He is able to tolerate liquid diet, minimal abdominal pain and he has some loose bowel movement. In the meantime patient To be monitored dysfunction of GI tract, and the same time is treated with antibiotic for his intra-abdominal infection with Zosyn and Eraxis. This COVID-19 infection is a stable, he is minimally tachypneic. He is cont inued on dexamethasone 4 mg daily and multiple vitamin C, D and zinc. Labs reviewed, BMP is unremarkable. Patient was given 1 dose of Lasix. Distal on dexamethasone and multiple vitamins. Also he is on Zosyn and Eraxis. Patient is going to be transferred to [facility] floor today 06/08/2021 Patient is eating well today about 100% of his meals. No chest pain or dyspnea. Abdominal pain is minimal. He states he is having regular bowel movements. He is hemodynamically stable, he is saturating 93% on room air. WBC is 9.2, hemoglobin 9.6, BMP is unremarkable. Patient remains on small dose of dexamethasone, vitamin C, D and zinc. Zosyn and Eraxis. Possible patient will go to inpatient rehab upon discharge 06/09/2021 Patient is doing well generally, he is fully awake and oriented, lying in bed comfortable, tolerates liquid diet, minimal abdominal pain and has been having regular bowel movement. Breathing is quiet. Hemodynamically stable and he is saturating 93% on room air. Labs look stable. Bilirubin is 2.4, AST 60, ALT normal. 9. He remains on Zosyn and Eraxis. Also he is on dexamethasone 4 mg and multiple vitamins for his Covid infection. Patient was already cleared by pulmonary service. Objective - Vital Signs Vital signs: Vital Signs Temp 97.9 F 06/09/21 02:00 Pulse 71 06/09/21 02:00 Resp 16 06/09/21 02:00 BP 127/65 06/09/21 02:00 Pulse Ox 95 06/09/21 02:00 Intake & Output 06/08/21 06/09/21 06/09/21 18:59 06:59 18:59 Intake Total 1014 Output Total 2500 Balance 1014 -2500 Weight 143 kg Intake: Intake, IV Titration 1014 Amount Potassium Phosphate 6 1014 mmol Magnesium Sulfate gm 1 gm Calcium Gluconate 1 gm In Amino Acid 4.25%- D10w 1,000 ml @ 30 mls/hr IV .BY DURATION [facility] Rx#: [id number] Output: Urine 2500 Other: Voiding Method Indwelling Catheter Indwelling Catheter # Voids 1,100 ABP, PAP, CO, CI - Last Documented Arterial Blood Pressure 104/76 - Exam -GENERAL: The patient is awake and alert and oriented, generally weak HEENT: Pupils are round and equally reacting to light. EOMI. No scleral icterus. No conjunctival pallor. Normocephalic, atraumatic. No pharyngeal erythema. No thyromegaly. CARDIOVASCULAR: S1 and S2 present. No murmurs, rubs, or gallops. PULMONARY: Chest is clear to auscultation, no wheezing or crackles. -ABDOMEN: Soft, nontender, nondistended, normoactive bowel sounds. No palpable organomegaly. Surgical wound is healing and closed MUSCULOSKELETAL: No joint swelling or deformity. EXTREMITIES: No cyanosis, clubbing, or pedal edema. NEUROLOGICAL: Gross neurological examination did not reveal any focal deficits. SKIN: No rashes. no petechiae. - Labs CBC & Chem 7: 06/08/21 08:04 06/09/21 06:51 Labs: Abnormal Lab Results - Last 24 Hours (Table) 06/08/21 06/08/21 06/09/21 Range/Units 12:47 16:38 06:51 Sodium 133 L (137-145) mmol/L POC Glucose (mg/dL) 117 H 115 H (75-99) mg/dL Calcium 7.9 L (8.4-10.2) mg/dL Total Bilirubin 2.4 H (0.2-1.3) mg/dL AST 60 H (17-59) U/L Total Protein 6.1 L (6.3-8.2) g/dL Albumin 2.6 L (3.5-5.0) g/dL Assessment and Plan Assessment: Crohn's disease with inflamed ileum and right colon and right abdominal abscess status post exploratory laparotomy and ileocolectomy with washout of peritoneal abscess on 05/28/21 Sepsis and severe infection secondary to E. coli, and aerobes and Keke, secgénesis finchy to above Bilateral Covid pneumonia Acute hypoxic respiratory failure Increased inflammatory markers Crohn's disease Agitation with possible combination of metabolic and toxic encephalopathy Possible cirrhosis A. fib with RVR, currently her heart rate is controlled Plan: this is a pleasant 41 years old male who presents with intra-abdominal infection, as below and abdominal abscess status post exploratory laparotomy and also with Bilateral Covid pneumonia and hypoxia Continue with vitamin C, vitamin D, and zinc. Continue with dexamethasone Pulmonary team consult Surgery team and infectious disease consult on the case Continue with antibiotics per infectious disease team recommendation and currently is on IV Zosyn and Eraxis Labs and medication were reviewed.. Continue same treatment. Continue with symptomatic treatment. Resume home medication. Monitor lytes and vitals. DVT and GI prophylaxis. Further recommendations as per clinical course of the patient DVT prophylaxis: Subcutaneous Lovenox GI Prophylaxis: Ppi Prognosis is guarded
[2021-06-09 12:14] LABS: Glucose,Whole Blood 112 mg/dL (75-99)
[2021-06-09 13:24] VITALS: BMI 46.5
--- NOTE | 2021-06-09 13:50 | P.DS ---
Providers Date of admission: 05/25/21 20:59 Expected date of discharge: 06/09/21 Attending physician: Marco A Marsh Consults: 05/25/21 20:59 Consult Physician Routine Consulting Provider: Carrie Parikh Consult Reason/Comments: medicine consult Do you want consulting provider notified?: Yes 05/26/21 13:01 Consult Physician Routine Consulting Provider: Carrie Parikh Consult Reason/Comments: medical management Do you want consulting provider notified?: Yes 05/27/21 11:04 Consult Physician Routine Consulting Provider: Megan Metz Consult Reason/Comments: hypoxia covid pneumonia Do you want consulting provider notified?: Yes 05/30/21 13:13 Consult Physician Routine Consulting Provider: Gabriel Anna Consult Reason/Comments: positive abdominal surgical culture, fever Do you want consulting provider notified?: Yes 06/01/21 11:43 Consult Physician Routine Consulting Provider: Carrie Parikh Consult Reason/Comments: medical Do you want consulting provider notified?: Already Contacted 06/07/21 15:10 Consult Physician Urgent Consulting Provider: Joe Hodgson Consult Reason/Comments: IPR Do you want consulting provider notified?: Yes Primary care physician: Erin Luna MD Hospital Course: Discharge diagnosis 1. Crohn's disease with abscess status post ileocolectomy with washout of peritoneal abscess 2. Pneumoperitoneum 3. COVID-19 pneumonia Hospital course This is a 41-year-old male with a 5 day history of abdominal pain and diarrhea. Also was diagnosed with COVID-19 10 days prior to his admission. Computed tomography scan was suggestive of a chronic appendicitis with possible perforation. Patient was taken to the OR on 05/28/2021 he is status post ileocolectomy with washout of peritoneal abscess for Crohn's disease with abscess. Patient was in the ICU and intubated. Patient had successful extubation. And was able to be transferred out of the ICU. He is having bowel movements. Tolerating diet. His pain is controlled. He has been up and ambulating. He is afebrile. Patient is stable for discharge. Patient will be discharged to [facility] rehab for further rehabilitation. Please refer to chart for any further details. Physician [employer] note has been reviewed by physician. Signing provider agrees with the documented findings, assessment, and plan of care. Patient Condition at Discharge: Stable Plan - Discharge Summary New Discharge Prescriptions: New Amoxic-Pot Clav 875-125Mg [Augmentin 875-125] 1 tab PO Q12HR 7 Days #14 tab Fluconazole [Diflucan] 100 mg PO DAILY 7 Days #7 tab traMADol HCl [Ultram] 100 mg PO Q6HR PRN 3 Days #24 tab PRN Reason: Pain Continue Ibuprofen [Motrin] 800 mg PO Q8H PRN PRN Reason: Pain Discharge Medication List Ibuprofen [Motrin] 800 mg PO Q8H PRN 05/25/21 [History] Amoxic-Pot Clav 875-125Mg [Augmentin 875-125] 1 tab PO Q12HR 7 Days #14 tab 06/09/21 [Rx] Fluconazole [Diflucan] 100 mg PO DAILY 7 Days #7 tab 06/09/21 [Rx] traMADol HCl [Ultram] 100 mg PO Q6HR PRN 3 Days #24 tab 06/09/21 [Rx] Follow up Appointment(s)/Referral(s): Erin Luna MD [Primary Care Provider] - 1-2 days Marco A Marsh MD [STAFF PHYSICIAN] - 1 Week Activity/Diet/Wound Care/Special Instructions: No lifting over 10 pounds You may shower. No soaking or tub baths for 2 weeks Very light activity until you are reevaluated at your follow up appointment with your surgeon Wet-to-dry dressing changes at incision site. Change dressing daily. Transfer patient to [facility] rehab Discharge Disposition: OTHER INSTITUTION NOT DEFINED
[2021-06-09 15:07] VITALS: BP 117/82; PULSE 62; RESP 18; TEMP 98.3
--- NOTE | 2021-06-09 15:55 | PN ---
PROGRESS NOTE DATE OF SERVICE: 06/09/2021 REASON FOR FOLLOWUP: Intraabdominal abscess. INTERVAL HISTORY: The patient is afebrile. The patient is currently breathing comfortably. The patient denies having any chest pain or shortness of breath or cough. Abdominal pain is currently controlled. He denies having any diarrhea. PHYSICAL EXAMINATION: Blood pressure 103/65 with a pulse of 72, temperature 97.8. He is 94% on room air. General description is a middle-aged male up in the chair in no distress. Respiratory system: Unlabored breathing. Clear to auscultation anteriorly. Heart S1, S2. Regular rate and rhythm. Abdomen soft, no tenderness. LABS: Creatinine 0.73. DIAGNOSTIC IMPRESSION AND PLAN: Patient with intraabdominal abscess, status post laparotomy and drainage of the abscess. Culture with E coli, anaerobes and Keke. Finish therapy with a short course of oral Augmentin and Diflucan. Close outpatient followup. Discussed with surgical team who is working on discharge. MMODL / IJN: [id number] /
[2021-06-14] MEDS ORDERED: FAT EMULSION 20% 500 ML in EMPTY BAG 1 BAG IV SCH (18:00)
== END 2021-06-09 17:39 | DRG 329 ==
LOC: EC 19:02 → 4SSUR 20:59 → 3SCARD 05-27 23:38 → 2SICU 05-28 07:02 → 4SSUR 06-07 14:38
PROVIDERS: ADMIT Surgery; ATTEND Surgery
PROC: 0DTK0ZZ Resection of Ascending Colon, Open Approach (ICD-10-PCS; 2021-05-28)
PROC: 0DTB0ZZ Resection of Ileum, Open Approach (ICD-10-PCS; 2021-05-28)
PROC: 02HV33Z Insertion of Infusion Device into Superior Vena Cava, Percutaneous Approach (ICD-10-PCS; 2021-05-28)
PROC: 5A1955Z Respiratory Ventilation, Greater than 96 Consecutive Hours (ICD-10-PCS; 2021-05-28)
PROC: 0BH17EZ Insertion of Endotracheal Airway into Trachea, Via Natural or Artificial Opening (ICD-10-PCS; 2021-05-28)
PROC: 3E043XZ Introduction of Vasopressor into Central Vein, Percutaneous Approach (ICD-10-PCS; 2021-05-28)
PROC: 03HB3DZ Insertion of Intraluminal Device into Right Radial Artery, Percutaneous Approach (ICD-10-PCS; principal; 2021-05-28 04:29)
DX: K35.32 Acute appendicitis with perforation, localized peritonitis, and gangrene, without abscess (principal); A41.51 Sepsis due to Escherichia coli [E. coli]; U07.1 COVID-19; J12.82 Pneumonia due to coronavirus disease 2019; J96.21 Acute and chronic respiratory failure with hypoxia; K63.1 Perforation of intestine (nontraumatic); N17.0 Acute kidney failure with tubular necrosis; R65.21 Severe sepsis with septic shock; A41.4 Sepsis due to anaerobes; B37.7 Candidal sepsis; K65.0 Generalized (acute) peritonitis; K65.1 Peritoneal abscess; Z68.41 Body mass index [BMI] 40.0-44.9, adult; E87.0 Hyperosmolality and hypernatremia; E87.1 Hypo-osmolality and hyponatremia; E87.2 Acidosis; J81.1 Chronic pulmonary edema; J98.11 Atelectasis; K50.914 Crohn's disease, unspecified, with abscess; K56.609 Unspecified intestinal obstruction, unspecified as to partial versus complete obstruction; K56.7 Ileus, unspecified; E66.9 Obesity, unspecified; B96.20 Unspecified Escherichia coli [E. coli] as the cause of diseases classified elsewhere; D64.9 Anemia, unspecified; D72.810 Lymphocytopenia; E66.01 Morbid (severe) obesity due to excess calories; E87.6 Hypokalemia; E87.70 Fluid overload, unspecified; E87.8 Other disorders of electrolyte and fluid balance, not elsewhere classified; E88.09 Other disorders of plasma-protein metabolism, not elsewhere classified; I48.0 Paroxysmal atrial fibrillation; Z87.891 Personal history of nicotine dependence; Z90.49 Acquired absence of other specified parts of digestive tract; R79.89 Other specified abnormal findings of blood chemistry; K66.8 Other specified disorders of peritoneum
CPT/HCPCS: 36415; 71045; 71250; 74176; 74177; 76705; 78580; 80048; 80051; 80053; 81001; 82330; 82728; 82805; 83605; 83615; 83690; 83735; 84100; 84478; 84484; 85025; 85027; 85379; 85610; 85652; 85730; 86140; 87040; 87070; 87075; 87077; 87086; 87186; 87205; 87635; 88307; 93005; 93308; 93970; 94002; 94003; 94760; 96361; 96365; 96366; 96375; 96376; 99291

== ENCOUNTER 2021-06-19 19:09 | Inpatient (IN) | payer OTHER ==
[2021-06-19] MEDS ORDERED: SODIUM CHLORIDE 0.9% 1,000 ML IV STA (19:27)
--- NOTE | 2021-06-19 20:22 | ED ---
Abdominal Pain HPI - General Chief Complaint: Abdominal Pain Stated Complaint: Abd Pain Time Seen by Provider: 06/19/21 19:14 Source: patient Mode of arrival: EMS - History of Present Illness Initial Comments: This is a 41 year-old male patient who is 3 weeks post op after having ileocolectomy with washout of peritoneal abscess on 05/28/[address] Marsh. Abscess was felt to be the result of Crohn's disease. Patient presents today for increased purulent drainage from his abdominal incision and abdominal pain. States that he has had minimal appetite. Denies nausea or vomiting. Denies any diarrhea or constipation. Denies fever or chills. Did lose 40lbs since surgery. Was discharged to inpatient rehab at [facility] and then to home a few days ago. Does have a visiting nurse. - Related Data Home Medications Medication Instructions Recorded Confirmed Albuterol Sulfate [Albuterol 2 puff PO RT-Q6H PRN 06/19/21 06/19/21 Sulfate Hfa] Ascorbic Acid [Vitamin C] 500 mg PO DAILY 06/19/21 06/19/21 Cholecalciferol [Vitamin D3 (25 50 mcg PO DAILY 06/19/21 06/19/21 Mcg = 1000 Iu)] Zinc 50 mg PO DAILY 06/19/21 06/19/21 traMADol HCl [Ultram] 50 mg PO Q6HR PRN 06/19/21 06/19/21 Previous Rx's Medication Instructions Recorded Cephalexin [Keflex] 500 mg PO Q6HR #40 cap 06/19/21 Sulfamethoxazole/Trimethoprim 1 each PO BID #20 tablet 06/19/21 [Bactrim DS 800-160 mg] Allergies Allergy/AdvReac Type Severity Reaction Status Date / Time acetaminophen [From Tylenol] Allergy Chest Pain Verified 05/25/21 21:37 Review of Systems ROS Statement: Those systems with pertinent positive or pertinent negative responses have been documented in the HPI. ROS Other: All systems not noted in ROS Statement are negative. Past Medical History Past Medical History: No Reported History History of Any Multi-Drug Resistant Organisms: None Reported Past Surgical History: Hernia Repair Past Anesthesia/Blood Transfusion Reactions: No Reported Reaction Past Psychological History: No Psychological Hx Reported Smoking Status: Former smoker Past Alcohol Use History: Occasional Past Drug Use History: None Reported General Exam General appearance: alert, in no apparent distress, other (This is a well- developed, well-nourished adult male in no acute distress.) Respiratory exam: Present: normal lung sounds bilaterally. Absent: respiratory distress, wheezes, rales, rhonchi, stridor Cardiovascular Exam: Present: regular rate, normal rhythm, normal heart sounds. Absent: systolic murmur, diastolic murmur, rubs, gallop, clicks GI/Abdominal exam: Present: soft, tenderness (Generalized, zander-incisional), normal bowel sounds, other (Vertical midline incision over the abdomen, there is open wound dehiscence to several areas, there is copious purulent discharge from the distal opening.). Absent: distended, guarding, rebound, rigid Neurological exam: Present: alert, oriented X3, CN II-XII intact Psychiatric exam: Present: normal affect, normal mood Skin exam: Present: warm, dry, intact, normal color. Absent: rash Course Vital Signs 06/19/21 06/19/21 06/19/21 19:13 21:16 22:10 Temperature 97.8 F Pulse Rate 105 H 88 82 Respiratory 18 16 18 Rate Blood Pressure 137/92 151/74 155/78 O2 Sat by Pulse 96 97 97 Oximetry 06/19/21 06/19/21 22:56 23:30 Temperature Pulse Rate 78 78 Respiratory 18 16 Rate Blood Pressure 145/77 147/78 O2 Sat by Pulse 98 97 Oximetry Medical Decision Making - Medical Decision Making 41-year-old male patient who had ileocolectomy with peritoneal abscess drainage on 05/28/2021 presents for increased abdominal pressure and discomfort as well as increased fluid drainage from his incision site. Physical examination did reveal copious purulent discharge from the distal aspect of his surgical incis ion site. He did have mild generalized tenderness. Labs reviewed and did reveal normal white blood cell count normal lactic acid. CT abdomen and pelvis did redemonstrate small bowel ileus and demonstrated new large bowel ileus. Case was discussed with his surgeon Dr. Marsh and initial plan was to discharge with oral antibiotics and close follow up. Patient was not comfortable with this plan. States he is unable to move around at home and does not feel safe with discharge. He is willing to consider ECF placement for rehab. Dr. Marsh was contacted again and agreed to admission. My attending is Dr. Perry. - Lab Data Result diagrams: 06/19/21 20:19 06/19/21 20:19 Lab Results 06/19/21 06/19/21 06/19/21 Range/Units 20:19 20:19 20:19 WBC 9.6 (3.8-10.6) k/uL RBC 3.93 L (4.30-5.90) m/uL Hgb 11.8 L (13.0-17.5) gm/dL Hct 37.6 L (39.0-53.0) % MCV 95.7 (80.0-100.0) fL MCH 29.9 (25.0-35.0) pg MCHC 31.3 (31.0-37.0) g/dL RDW 18.7 H (11.5-15.5) % Plt Count 211 (150-450) k/uL MPV 7.6 Neutrophils % 83 % Lymphocytes % 9 % Monocytes % 3 % Eosinophils % 1 % Basophils % 0 % Neutrophils # 8.0 H (1.3-7.7) k/uL Lymphocytes # 0.9 L (1.0-4.8) k/uL Monocytes # 0.3 (0-1.0) k/uL Eosinophils # 0.1 (0-0.7) k/uL Basophils # 0.0 (0-0.2) k/uL Hypochromasia Slight Anisocytosis Slight Macrocytosis Slight Sodium 132 L (137-145) mmol/L Potassium 4.5 (3.5-5.1) mmol/L Chloride 96 L (98-107) mmol/L Carbon Dioxide 22 (22-30) mmol/L Anion Gap 14 mmol/L BUN 25 H (9-20) mg/dL Creatinine 0.69 (0.66-1.25) mg/dL Est GFR (CKD-EPI)AfAm >90 (>60 ml/min/1.73 sqM) Est GFR (CKD-EPI)NonAf >90 (>60 ml/min/1.73 sqM) Glucose 96 (74-99) mg/dL Plasma Lactic Acid Arvind 1.4 (0.7-2.0) mmol/L Calcium 8.7 (8.4-10.2) mg/dL Total Bilirubin 2.4 H (0.2-1.3) mg/dL AST 38 (17-59) U/L ALT 49 (4-49) U/L Alkaline Phosphatase 222 H (38-126) U/L Total Protein 6.8 (6.3-8.2) g/dL Albumin 3.3 L (3.5-5.0) g/dL Lipase 409 H (23-300) U/L Disposition Clinical Impression: Incisional infection, Ileus, Weakness Disposition: ADMITTED IP TO [facility] Instructions (If sedation given, give patient instructions): Surgical Site Infections (ED), Ileus (ED) Prescriptions: Sulfamethoxazole/Trimethoprim [Bactrim DS 800-160 mg] 1 each PO BID #20 tablet Cephalexin [Keflex] 500 mg PO Q6HR #40 cap Is patient prescribed a controlled substance at d/c from ED?: No Referrals: Erin Luna MD [Primary Care Provider] - 1-2 days Decision to Admit Reason: Admit from EC Decision Date: 06/19/21 Decision Time: 23:29
[2021-06-19 20:57] LABS: Anisocytosis Slight; Basophils % (A) 0 %; Eosinophils # (A) 0.1 k/uL (0-0.7); Eosinophils % (A) 1 %; HCT 37.6 % (39.0-53.0); HGB 11.8 gm/dL (13.0-17.5); Hypochromasia Slight; Lymphocytes # (A) 0.9 k/uL (1.0-4.8); Lymphocytes % (A) 9 %; MCH 29.9 pg (25.0-35.0); MCHC 31.3 g/dL (31.0-37.0); MCV 95.7 fL (80.0-100.0); Macrocytosis Slight; Mean Platelet Volume 7.6; Monocytes # (A) 0.3 k/uL (0-1.0); Monocytes % (A) 3 %; Neutrophils % (A) 83 %; Platelet Count 211 k/uL (150-450); RBC 3.93 m/uL (4.30-5.90); RDW 18.7 % (11.5-15.5); WBC 9.6 k/uL (3.8-10.6)
[2021-06-19 21:18] LABS: ALT 49 U/L (4-49); AST 38 U/L (17-59); African American GFR (CKD) >90 (>60 ml/min/1.73 sqM); Albumin 3.3 g/dL (3.5-5.0); Alkaline Phosphatase 222 U/L (38-126); Anion Gap 14 mmol/L; Blood Urea Nitrogen 25 mg/dL (9-20); Calcium 8.7 mg/dL (8.4-10.2); Carbon Dioxide 22 mmol/L (22-30); Chloride 96 mmol/L (98-107); Glucose 96 mg/dL (74-99); Lipase 409 U/L (23-300); Non-African American GFR(CKD) >90 (>60 ml/min/1.73 sqM); Potassium 4.5 mmol/L (3.5-5.1); Sodium 132 mmol/L (137-145); Total Bilirubin 2.4 mg/dL (0.2-1.3); Total Protein 6.8 g/dL (6.3-8.2)
--- NOTE | 2021-06-19 22:18 | CT ---
EXAMINATION TYPE: CT abdomen pelvis w con DATE OF EXAM: 06/19/2021 COMPARISON: 05/28/2021 HISTORY: h/o colon resection 05/28/21 CT DLP: 2082.6 mGycm Automated exposure control for dose reduction was used. CONTRAST: Performed with IV Contrast, patient injected with 100 mL of Isovue 300. There is some patchy atelectasis at the lung bases. Heart size is normal. There is no pericardial eff usion. There are no hilar masses. Liver spleen stomach appear intact. There is no pancreatic mass. Th e bile ducts are nondilated. There is no adrenal mass. Kidneys show satisfactory contrast opacification. There is no hydronephrosi s. There is normal excretion on the delayed images. There is no retroperitoneal adenopathy. Bladder d istends smoothly. There is no inguinal hernia. There are multiple large bowel fluid levels throughout the abdomen. Fecal pattern in the rectum is no rmal. There is some mild stranding with surgical clips at the right colon. There is dilated 5 cm gas and fluid filled small bowel in the midabdomen. The lumbar vertebrae have normal alignment. There is no compression fracture. Posterior elements are intact. Bony pelvis is intact. The hip joints are intact. IMPRESSION: Dilated small bowel suggestive of severe ileus or distal mechanical small bowel obstruction and appea r similar to old exam. Previous surgery at the cecum. There is clearing of the pneumoperitoneum dwayne red to last exam. There is improvement in the infiltrate or atelectasis at the lung bases compared to the old exam. There is evidence of large bowel ileus which is new compared to old exam.
[2021-06-19] MEDS ORDERED: SULFAMETH-TMP DS STARTER PACK 2 TAB BTL PO STA (23:10)
[2021-06-19] MEDS ORDERED: CEPHALEXIN 500MG STARTER PACK 4 CAP BTL PO STA (23:10)
[2021-06-19 23:17] LABS: Appearance,Urine Clear (Clear); Bilirubin,Urine 1+ (Negative); Blood,Urine Negative (Negative); Color,Urine Dark Yellow; Glucose,Urine (UA) Negative (Negative); Ketones,Urine 3+ (Negative); Leukocyte Esterase,Urine Negative (Negative); Mucus,Urine Occasional /hpf; Nitrite,Urine Negative (Negative); Protein,Urine 1+ (Negative); RBC,Urine 2 /hpf (0-5); WBC,Urine 3 /hpf (0-5)
[2021-06-19] MEDS ORDERED: ACETAMINOPHEN TAB 325 MG TAB PO PRN (23:26)
[2021-06-19] MEDS ORDERED: NALOXONE 0.4 MG/ML 1 ML VIAL IV PRN (23:26)
[2021-06-19] MEDS ORDERED: PIPERACILLIN-TAZOBACTAM 3.375 GM in SODIUM CHLORIDE 0.9% 100 ML IVPB ONE (23:30)
[2021-06-19 23:54] LABS: Specific Gravity,Urine >1.050 (1.001-1.035)
[2021-06-20] MEDS: SODIUM CHLORIDE 0.9% 1,000 ML IV SCH ×2 (00:04→13:58)
[2021-06-20] MEDS: PIPERACILLIN-TAZOBACTAM 3.375 GM in SODIUM CHLORIDE 0.9% 100 ML IVPB SCH ×2 (07:48→17:13)
[2021-06-20 10:05] LABS: Anisocytosis Slight; Basophils % (A) 0 %; Eosinophils # (A) 0.2 k/uL (0-0.7); Eosinophils % (A) 2 %; HCT 31.4 % (39.0-53.0); Hypochromasia Slight; Lymphocytes # (A) 0.8 k/uL (1.0-4.8); Lymphocytes % (A) 9 %; MCH 30.1 pg (25.0-35.0); MCHC 31.7 g/dL (31.0-37.0); MCV 94.9 fL (80.0-100.0); Macrocytosis Slight; Mean Platelet Volume 7.7; Monocytes # (A) 0.4 k/uL (0-1.0); Monocytes % (A) 5 %; Neutrophils % (A) 82 %; Platelet Count 181 k/uL (150-450); RBC 3.31 m/uL (4.30-5.90); WBC 8.5 k/uL (3.8-10.6)
[2021-06-20 10:26] LABS: ALT 39 U/L (4-49); AST 29 U/L (17-59); African American GFR (CKD) >90 (>60 ml/min/1.73 sqM); Albumin 2.7 g/dL (3.5-5.0); Albumin/Globulin Ratio 0.9; Alkaline Phosphatase 168 U/L (38-126); Anion Gap 10 mmol/L; Blood Urea Nitrogen 23 mg/dL (9-20); Calcium 8.1 mg/dL (8.4-10.2); Carbon Dioxide 20 mmol/L (22-30); Chloride 101 mmol/L (98-107); Glucose 101 mg/dL (74-99); Lipase 315 U/L (23-300); Non-African American GFR(CKD) >90 (>60 ml/min/1.73 sqM); Potassium 3.7 mmol/L (3.5-5.1); Sodium 131 mmol/L (137-145); Total Bilirubin 1.9 mg/dL (0.2-1.3); Total Protein 5.7 g/dL (6.3-8.2)
--- NOTE | 2021-06-20 12:07 | P.GSHP ---
History of Present Illness H&P Date: 06/20/21 CHIEF COMPLAINT: Drainage from abdominal incision HISTORY OF PRESENT ILLNESS: This is a 41-year-old male who recently was hospitalized with Crohn's disease with abscess and is status post ileocolectomy and washout of peritoneal abscess on 05/28/[address] steen. Patient was discharged to [facility] rehab. He was just recently released and had been home on Sunday and Sunday. He started to noted increased drainage from the distal aspect of his incision site. It was brownish in color and had follow odor. He also had increase in abdominal pain with movement. He came into the ER for further evaluation. He's been placed on IV antibiotics. He had a computed tomography scan of the abdomen and pelvis completing showing concerns of ileus. Patient did have bowel movements they have been small and also having flatus. He reports poor oral intake. Denies any fever chills or sweats. PAST MEDICAL HISTORY: Crohn's disease with abscess PAST SURGICAL HISTORY: Ileocolectomy MEDICATIONS: See list. ALLERGIES: See list. SOCIAL HISTORY: No illicit drug use. REVIEW OF SYSTEMS: CONSTITUTIONAL: Denies fever or chills. HEENT: Denies blurred vision, vision changes, or eye pain. Denies hemoptysis CARDIOVASCULAR: Denies chest pain or pressure. RESPIRATORY: No shortness of breath. GASTROINTESTINAL: See HPI for pertinent findings HEMATOLOGIC: Denies bleeding disorders. GENITOURINARY: Denies any blood in urine or increased urinary frequency. SKIN: Denies pruitis. Denies rash. PHYSICAL EXAM: VITAL SIGNS: Reviewed GENERAL: Well-developed in no acute distress. HEENT: No sclera icterus. Extraocular movements grossly intact. Moist buccal mucosa. Head is atraumatic, normocephalic. No nasal drainage. ABDOMEN: Soft. Nondistended. Copious purulent discharge from the distal opening of patient's incision. Foul odor Mild tenderness with palpation of the sinuses incision NEUROLOGIC: Alert and oriented. Cranial nerves II through XII grossly intact. LABORATORY DATA: WBC is 8.5 hemoglobin is 10 platelets 181 sodium 131 potassium 3.7 creatinine 0.64 AST 29 ALT 39 alk phos 168 total bilirubin 1.9 Lipase 409 pound 315 COVID-19 not detected IMAGING: Computed tomography scan abdomen and pelvis dilated small bowel suggestive of severe ileus or distal mechanical small bowel obstruction and appears similar to old exam. Previous surgery at the cecum. There is clearing of the pneumoperitoneum compared to last exam. There is improvement in the infiltrate or atelectasis at the lung bases compared to old exam. There is evidence of large bowel ileus which is new compared to old exam ASSESSMENT: 1. Abdominal surgical site infection versus possible drainage from the silver dressing itself 2. Ileus 3. Crohn's disease with abscess status post ileocolectomy and washout of peritoneal abscess on 05/28/2021 4. Generalized weakness PLAN: -Obtain culture from abdominal wound infection -Continue IV antibiotics -Continue local wound care -[place] removed -Medicine consultation for medical management -Continue full liquid diet -Consult PT OT -GI prophylaxis Protonix and DVT prophylaxis subcu heparin Physician Didactic Program In Dietetics Director note has been reviewed by physician. Signing provider agrees with the documented findings, assessment, and plan of care. Past Medical History Past Medical History: No Reported History History of Any Multi-Drug Resistant Organisms: None Reported Past Surgical History: Hernia Repair Past Anesthesia/Blood Transfusion Reactions: No Reported Reaction Past Psychological History: No Psychological Hx Reported Smoking Status: Former smoker Past Alcohol Use History: Occasional Past Drug Use History: None Reported - Past Family History Father Family Medical History: No Reported History Additional Family Medical History / Comment(s): Father is healthy Mother Family Medical History: Eye Disorder Additional Family Medical History / Comment(s): Mother has glaucoma Medications and Allergies Home Medications Medication Instructions Recorded Confirmed Type Albuterol Sulfate [Albuterol 2 puff PO RT-Q6H PRN 06/19/21 06/19/21 History Sulfate Hfa] Ascorbic Acid [Vitamin C] 500 mg PO DAILY 06/19/21 06/19/21 History Cephalexin [Keflex] 500 mg PO Q6HR #40 cap 06/19/21 Rx Cholecalciferol [Vitamin D3 (25 50 mcg PO DAILY 06/19/21 06/19/21 History Mcg = 1000 Iu)] Sulfamethoxazole/Trimethoprim 1 each PO BID #20 tablet 06/19/21 Rx [Bactrim DS 800-160 mg] Zinc 50 mg PO DAILY 06/19/21 06/19/21 History traMADol HCl [Ultram] 50 mg PO Q6HR PRN 06/19/21 06/19/21 History Allergies Allergy/AdvReac Type Severity Reaction Status Date / Time acetaminophen [From Tylenol] Allergy Chest Pain Verified 05/25/21 21:37 Surgical - Exam Vital Signs Temp Pulse Resp BP Pulse Ox 97.8 F 105 H 18 137/92 96 06/19/21 19:13 06/19/21 19:13 06/19/21 19:13 06/19/21 19:13 06/19/21 19:13 Results - Labs 06/20/21 09:35 06/20/21 09:35 Abnormal Lab Results - Last 24 Hours (Table) 06/19/21 06/19/21 06/19/21 Range/Units 20:19 20:19 20:19 RBC 3.93 L (4.30-5.90) m/uL Hgb 11.8 L (13.0-17.5) gm/dL Hct 37.6 L (39.0-53.0) % RDW 18.7 H (11.5-15.5) % Neutrophils # 8.0 H (1.3-7.7) k/uL Lymphocytes # 0.9 L (1.0-4.8) k/uL Sodium 132 L (137-145) mmol/L Chloride 96 L (98-107) mmol/L Carbon Dioxide (22-30) mmol/L BUN 25 H (9-20) mg/dL Creatinine (0.66-1.25) mg/dL Glucose (74-99) mg/dL Calcium (8.4-10.2) mg/dL Total Bilirubin 2.4 H (0.2-1.3) mg/dL Alkaline Phosphatase 222 H (38-126) U/L Total Protein (6.3-8.2) g/dL Albumin 3.3 L (3.5-5.0) g/dL Lipase 409 H (23-300) U/L Ur Specific [place] >1.050 H (1.001-1.035) Urine Protein 1+ H (Negative) Urine Ketones 3+ H (Negative) Urine Bilirubin 1+ H (Negative) Urine Mucus Occasional H (None) /hpf 06/20/21 06/20/21 Range/Units 09:35 09:35 RBC 3.31 L (4.30-5.90) m/uL Hgb 10.0 L D (13.0-17.5) gm/dL Hct 31.4 L (39.0-53.0) % RDW 18.0 H (11.5-15.5) % Neutrophils # (1.3-7.7) k/uL Lymphocytes # 0.8 L (1.0-4.8) k/uL Sodium 131 L (137-145) mmol/L Chloride (98-107) mmol/L Carbon Dioxide 20 L (22-30) mmol/L BUN 23 H (9-20) mg/dL Creatinine 0.64 L (0.66-1.25) mg/dL Glucose 101 H (74-99) mg/dL Calcium 8.1 L (8.4-10.2) mg/dL Total Bilirubin 1.9 H (0.2-1.3) mg/dL Alkaline Phosphatase 168 H (38-126) U/L Total Protein 5.7 L (6.3-8.2) g/dL Albumin 2.7 L (3.5-5.0) g/dL Lipase 315 H (23-300) U/L Ur Specific [place] (1.001-1.035) Urine Protein (Negative) Urine Ketones (Negative) Urine Bilirubin (Negative) Urine Mucus (None) /hpf Diabetes panel 06/19/21 06/20/21 Range/Units 20:19 09:35 Sodium 132 L 131 L (137-145) mmol/L Potassium 4.5 3.7 (3.5-5.1) mmol/L Chloride 96 L 101 (98-107) mmol/L Carbon Dioxide 22 20 L (22-30) mmol/L BUN 25 H 23 H (9-20) mg/dL Creatinine 0.69 0.64 L (0.66-1.25) mg/dL Glucose 96 101 H (74-99) mg/dL Calcium 8.7 8.1 L (8.4-10.2) mg/dL AST 38 29 (17-59) U/L ALT 49 39 (4-49) U/L Alkaline Phosphatase 222 H 168 H (38-126) U/L Total Protein 6.8 5.7 L (6.3-8.2) g/dL Albumin 3.3 L 2.7 L (3.5-5.0) g/dL Calcium panel 06/19/21 06/20/21 Range/Units 20:19 09:35 Calcium 8.7 8.1 L (8.4-10.2) mg/dL Albumin 3.3 L 2.7 L (3.5-5.0) g/dL Pituitary panel 06/19/21 06/20/21 Range/Units 20:19 09:35 Sodium 132 L 131 L (137-145) mmol/L Potassium 4.5 3.7 (3.5-5.1) mmol/L Chloride 96 L 101 (98-107) mmol/L Carbon Dioxide 22 20 L (22-30) mmol/L BUN 25 H 23 H (9-20) mg/dL Creatinine 0.69 0.64 L (0.66-1.25) mg/dL Glucose 96 101 H (74-99) mg/dL Calcium 8.7 8.1 L (8.4-10.2) mg/dL Adrenal panel 06/19/21 06/20/21 Range/Units 20:19 09:35 Sodium 132 L 131 L (137-145) mmol/L Potassium 4.5 3.7 (3.5-5.1) mmol/L Chloride 96 L 101 (98-107) mmol/L Carbon Dioxide 22 20 L (22-30) mmol/L BUN 25 H 23 H (9-20) mg/dL Creatinine 0.69 0.64 L (0.66-1.25) mg/dL Glucose 96 101 H (74-99) mg/dL Calcium 8.7 8.1 L (8.4-10.2) mg/dL Total Bilirubin 2.4 H 1.9 H (0.2-1.3) mg/dL AST 38 29 (17-59) U/L ALT 49 39 (4-49) U/L Alkaline Phosphatase 222 H 168 H (38-126) U/L Total Protein 6.8 5.7 L (6.3-8.2) g/dL Albumin 3.3 L 2.7 L (3.5-5.0) g/dL
[2021-06-20] MEDS ORDERED: ALBUTEROL NEBULIZED 2.5 MG/3 ML INHALATION PRN (13:05)
--- NOTE | 2021-06-20 13:20 | P.HPIM ---
History of Present Illness 41-year-old male with history of Crohn's disease and abscess had a ileocolectomy on 05/28/2021 subsequently discharged to [facility] patient rehabitation patient won't cultures during previous hospital physicians showed E. coli and Keke patient to complete the treatment with Augmentin and Diflucan. I did evaluate this patient at [facility] inpatient rehabilitation at that time I obtain the cultures as there was concern about new infection in the surgical site area will obtain those cultures, infectious disease evaluated the patient there. Patient was subsequently discharged. came in with the increase the pain and infection of the surgical site area now. Patient had a CT of the abdomen which is concerning for ileus although patient was having normal bowel movements. Patient is hyponatremic. Patient will sugars are highly elevated lower obtain hemoglobin and patient was started on insulin regimen along with sliding scale. REVIEW OF SYSTEMS: CONSTITUTIONAL: No fever, no malaise, no fatigue. HEENT: No recent visual problems or hearing problems. Denied any sore throat. CARDIOVASCULAR: No chest pain, orthopnea, PND, no palpitations, no syncope. PULMONARY: No shortness of breath, no cough, no hemoptysis. GASTROINTESTINAL: No diarrhea, no nausea, no vomiting, no abdominal pain. NEUROLOGICAL: No headaches, no weakness, no numbness. HEMATOLOGICAL: Denies any bleeding or petechiae. GENITOURINARY: Denies any burning micturition, frequency, or urgency. MUSCULOSKELETAL/RHEUMATOLOGICAL: Denies any joint pain, swelling, or any muscle pain. ENDOCRINE: Denies any polyuria or polydipsia. The rest of the 14-point review of systems is negative. PHYSICAL EXAMINATION: GENERAL: The patient is alert and oriented x3, not in any acute distress. Well developed, well nourished. HEENT: Pupils are round and equally reacting to light. EOMI. No scleral icterus. No conjunctival pallor. Normocephalic, atraumatic. No pharyngeal erythema. No thyromegaly. CARDIOVASCULAR: S1 and S2 present. No murmurs, rubs, or gallops. PULMONARY: Chest is clear to auscultation, no wheezing or crackles. ABDOMEN: Soft, nontender, nondistended, normoactive bowel sounds. No palpable organomegaly. MUSCULOSKELETAL: No joint swelling or deformity. EXTREMITIES: No cyanosis, clubbing, or pedal edema. NEUROLOGICAL: Gross neurological examination did not reveal any focal deficits. SKIN: surgical site area. It appeared to be infected with purulent discharge Assessment and plan -Abdominal surgical site infection, possible: Won't cultures will be obtained patient is presently on Zosyn which will be continued patient may need vancomycin infectious disease will be consulted -Ileus as per CAT scan patient was having bowel movements -History of Crohn's disease status post redo colectomy -Elevated blood sugars will obtain hemoglobin A1c patient was started on 10 units of long-acting insulin along with sliding scale -Hypovolemic hyponatremia IV fluids will be started patient may have a competent of hyperosmolar hyponatremia secondary to elevated blood sugars DVT prophylaxis: Subcutaneous heparin Past Medical History Past Medical History: No Reported History Additional Past Medical History / Comment(s): Recently had surgery for chron's with peritoneal abscess, covid + 05/17/21. History of Any Multi-Drug Resistant Organisms: None Reported Past Surgical History: Hernia Repair Additional Past Surgical History / Comment(s): 05/28/21 ileocolectomy with washout pf pertioneal abscess, R inguinal hernia repair. Past Anesthesia/Blood Transfusion Reactions: No Reported Reaction Past Psychological History: No Psychological Hx Reported Smoking Status: Former smoker Past Alcohol Use History: Occasional Past Drug Use History: None Reported - Past Family History Father Family Medical History: No Reported History Additional Family Medical History / Comment(s): Father is healthy Mother Family Medical History: Eye Disorder Additional Family Medical History / Comment(s): Mother has glaucoma Medications and Allergies Home Medications Medication Instructions Recorded Confirmed Type Albuterol Sulfate [Albuterol 2 puff PO RT-Q6H PRN 06/19/21 06/19/21 History Sulfate Hfa] Ascorbic Acid [Vitamin C] 500 mg PO DAILY 06/19/21 06/19/21 History Cephalexin [Keflex] 500 mg PO Q6HR #40 cap 06/19/21 Rx Cholecalciferol [Vitamin D3 (25 50 mcg PO DAILY 06/19/21 06/19/21 History Mcg = 1000 Iu)] Sulfamethoxazole/Trimethoprim 1 each PO BID #20 tablet 06/19/21 Rx [Bactrim DS 800-160 mg] Zinc 50 mg PO DAILY 06/19/21 06/19/21 History traMADol HCl [Ultram] 50 mg PO Q6HR PRN 06/19/21 06/19/21 History Allergies Allergy/AdvReac Type Severity Reaction Status Date / Time acetaminophen [From Tylenol] Allergy Chest Pain Verified 05/25/21 21:37 Physical Exam Vitals: Vital Signs Temp Pulse Pulse Resp BP BP Pulse Ox 06/20/21 12:50 97.6 F 94 16 105/71 93 L 06/20/21 08:00 98 F 88 12 126/79 95 06/20/21 06:15 98.2 F 91 16 114/76 96 06/20/21 04:34 72 18 144/81 97 06/20/21 02:16 77 18 141/72 97 06/20/21 00:55 78 18 142/78 97 06/19/21 23:30 78 16 147/78 97 06/19/21 22:56 78 18 145/77 98 06/19/21 22:10 82 18 155/78 97 06/19/21 21:16 88 16 151/74 97 06/19/21 19:13 97.8 F 105 H 18 137/92 96 Intake and Output 06/19/21 06/20/21 06/20/21 22:59 06:59 14:59 Other: Weight 127.006 kg 127.006 kg Results CBC & Chem 7: 06/20/21 09:35 06/20/21 09:35 Labs: Abnormal Lab Results - Last 24 Hours (Table) 06/19/21 06/19/21 06/19/21 Range/Units 20:19 20:19 20:19 RBC 3.93 L (4.30-5.90) m/uL Hgb 11.8 L (13.0-17.5) gm/dL Hct 37.6 L (39.0-53.0) % RDW 18.7 H (11.5-15.5) % Neutrophils # 8.0 H (1.3-7.7) k/uL Lymphocytes # 0.9 L (1.0-4.8) k/uL Sodium 132 L (137-145) mmol/L Chloride 96 L (98-107) mmol/L Carbon Dioxide (22-30) mmol/L BUN 25 H (9-20) mg/dL Creatinine (0.66-1.25) mg/dL Glucose (74-99) mg/dL Calcium (8.4-10.2) mg/dL Total Bilirubin 2.4 H (0.2-1.3) mg/dL Alkaline Phosphatase 222 H (38-126) U/L Total Protein (6.3-8.2) g/dL Albumin 3.3 L (3.5-5.0) g/dL Lipase 409 H (23-300) U/L Ur Specific Organ >1.050 H (1.001-1.035) Urine Protein 1+ H (Negative) Urine Ketones 3+ H (Negative) Urine Bilirubin 1+ H (Negative) Urine Mucus Occasional H (None) /hpf 06/20/21 06/20/21 Range/Units 09:35 09:35 RBC 3.31 L (4.30-5.90) m/uL Hgb 10.0 L D (13.0-17.5) gm/dL Hct 31.4 L (39.0-53.0) % RDW 18.0 H (11.5-15.5) % Neutrophils # (1.3-7.7) k/uL Lymphocytes # 0.8 L (1.0-4.8) k/uL Sodium 131 L (137-145) mmol/L Chloride (98-107) mmol/L Carbon Dioxide 20 L (22-30) mmol/L BUN 23 H (9-20) mg/dL Creatinine 0.64 L (0.66-1.25) mg/dL Glucose 101 H (74-99) mg/dL Calcium 8.1 L (8.4-10.2) mg/dL Total Bilirubin 1.9 H (0.2-1.3) mg/dL Alkaline Phosphatase 168 H (38-126) U/L Total Protein 5.7 L (6.3-8.2) g/dL Albumin 2.7 L (3.5-5.0) g/dL Lipase 315 H (23-300) U/L Ur Specific Organ (1.001-1.035) Urine Protein (Negative) Urine Ketones (Negative) Urine Bilirubin (Negative) Urine Mucus (None) /hpf Thrombosis Risk Factor Assmnt - Choose All That Apply Any of the Below Risk Factors Present?: Yes Each Factor Represents 1 point: Age 41-60 years, History of prior major surgery (<1month), Obesity (BMI >25) Other Risk Factors: No Other congenital or acquired thrombophilia - If yes, enter type in comment: No Thrombosis Risk Factor Assessment Total Risk Factor Score: 3 Thrombosis Risk Factor Assessment Level: Moderate Risk
[2021-06-20] MEDS: HEPARIN SODIUM,PORCINE/PF 5,000 UNIT/0.5 ML SYRINGE SQ SCH ×2 (13:57→20:37)
[2021-06-20] MEDS: PANTOPRAZOLE 40 MG TABLET PO SCH (13:57)
[2021-06-20] MEDS: traMADol 50 MG TAB PO PRN (13:57)
[2021-06-20] MEDS ORDERED: INSULIN ASPART (NovoLOG) 100 UNIT/ML VIAL SQ SCH (17:30)
[2021-06-20] MEDS ORDERED: INSULIN DETEMIR (LEVEMIR) 100 UNIT/ML SYR SQ SCH (21:00)
--- NOTE | 2021-06-20 23:52 | P.CONS ---
History of Present Illness - Reason for Consult Consult date: 06/20/21 surgical site infection Requesting physician: Gomez Whitney - Chief Complaint abd pain and non healing wound x days - History of Present Illness History of Present Illness : Patient is a 41-year-old male with a past medical history significant for Crohn's disease in this patient who did have a recent admission to this facility for covid19 and also with an abdominal abscess in this patient with status post ileocolectomy and washout of the peritoneal abscess on May 28, 2021 the patient was subsequently stabilized and was discharged to the [facility] inpatient rehab for rehabilitation, the patient was recently discharged patient is now presenting to the [facility] ER for evaluation of increasing drainage from the lower incision area which apparently is portion color and foul-smelling. And the patient was complaining of more abdominal pain over the last 1 day patient describes the pain to be more of a dull aching 5-6 out of 10 and no radiation patient on presentation to the hospital was afebrile and no fever had recorded subsequently patient did have a normal white count kidney function has been normal urine has been negative lopez PCR was negative local wound culture was obtained the patient also have a CT of abdominal pelvis which did show some dilated small bowel suggestive of ileus clearing of the pneumoperitoneum evidence of large bowel ileus which is new compared to old exam no mention of any abscess local culture was obtained patient was started on Zosyn infectious disease was consulted for further management Review of system: CONSTITUTIONAL: Positive for weakness denies high-grade fever. EYES: No complaint. ENT: No complaint. RESPIRATORY: No complaint. CARDIOVASCULAR: No complaint. GENITOURINARY: No complaint. GASTROINTESTINAL: As per history of present illness. MUSCULOSKELETAL: No complaint. INTEGUMENTARY : No complaint. PSYCHOLOGIC: No complaint. ENDOCRINE: No complaint. NEUROLOGIC: No complaint. Past medical history : Reviewed, documented below Past surgical history : Reviewed, documented below Social history: Reviewed, documented below Medications: Reviewed, as documented below EXAMINATION: Vital sigans= Reviewed and documented below GENERAL DESCRIPTION: Middle-aged male lying in bed, no distress. No tachypnea or accessory muscle of respiration use. HEENT: Shows Pallor , no scleral icterus. Oral mucous membrane is dry. NECK: Trachea central, no thyromegaly. LUNGS: Unlabored breathing. Clear to auscultation anteriorly. No wheeze or crackle. HEART: S1, S2, regular rate and rhythm. ABDOMEN: Soft, no tenderness midline incision did have a 3 wounds the lower one is deeper but overall wound base looks clean except the middle wound which did have slough tissue there is no surrounding redness or foul-smelling drainage EXTREMITIES: No edema feet SKIN: No rash, no masses palpable. NEUROLOGICAL: The patient is awake, alert, oriented x3, mood and affect normal. LABS AND RADIOLOGY: Reviewed results see below Assessment : Patient with the midline laparotomy wound dehiscence in this patient with status post laparotomy for a intra-abdominal abscess on May 28, 2021, patient on presentation to the hospital has been afebrile he did have a normal white count overall her wound base looks clean except the middle portion of the wound with no surrounding redness and no foul-smelling drainage did have a component of ileus on the CT but no mention of any deep abscess Plan: 1-patient to continue with empiric Zosyn while waiting for the culture to finalize 2-local wound care with wet-to-dry to the upper and the lower wound however the middle wound do have slough tissue and will benefit from Medihoney 3-patient may be an ideal candidate for wound VAC therapy We will follow on clinical condition and cultures to further adjust medication if needed Thank you for this consultation we will follow the patient along with you Past Medical History Past Medical History: No Reported History Additional Past Medical History / Comment(s): Recently had surgery for chron's with peritoneal abscess, covid + 05/17/21. History of Any Multi-Drug Resistant Organisms: None Reported Past Surgical History: Hernia Repair Additional Past Surgical History / Comment(s): 05/28/21 ileocolectomy with washout pf pertioneal abscess, R inguinal hernia repair. Past Anesthesia/Blood Transfusion Reactions: No Reported Reaction Past Psychological History: No Psychological Hx Reported Smoking Status: Former smoker Past Alcohol Use History: Occasional Past Drug Use History: None Reported - Past Family History Father Family Medical History: No Reported History Additional Family Medical History / Comment(s): Father is healthy Mother Family Medical History: Eye Disorder Additional Family Medical History / Comment(s): Mother has glaucoma Medications and Allergies Home Medications Medication Instructions Recorded Confirmed Type Albuterol Sulfate [Albuterol 2 puff PO RT-Q6H PRN 06/19/21 06/19/21 History Sulfate Hfa] Ascorbic Acid [Vitamin C] 500 mg PO DAILY 06/19/21 06/19/21 History Cephalexin [Keflex] 500 mg PO Q6HR #40 cap 06/19/21 Rx Cholecalciferol [Vitamin D3 (25 50 mcg PO DAILY 06/19/21 06/19/21 History Mcg = 1000 Iu)] Sulfamethoxazole/Trimethoprim 1 each PO BID #20 tablet 06/19/21 Rx [Bactrim DS 800-160 mg] Zinc 50 mg PO DAILY 06/19/21 06/19/21 History traMADol HCl [Ultram] 50 mg PO Q6HR PRN 06/19/21 06/19/21 History Allergies Allergy/AdvReac Type Severity Reaction Status Date / Time acetaminophen [From Tylenol] Allergy Chest Pain Verified 05/25/21 21:37 Physical Exam Vitals: Vital Signs Temp Pulse Pulse Resp BP BP Pulse Ox 06/20/21 12:50 97.6 F 94 16 105/71 93 L 06/20/21 08:00 98 F 88 12 126/79 95 06/20/21 06:15 98.2 F 91 16 114/76 96 06/20/21 04:34 72 18 144/81 97 06/20/21 02:16 77 18 141/72 97 06/20/21 00:55 78 18 142/78 97 06/19/21 23:30 78 16 147/78 97 06/19/21 22:56 78 18 145/77 98 06/19/21 22:10 82 18 155/78 97 06/19/21 21:16 88 16 151/74 97 06/19/21 19:13 97.8 F 105 H 18 137/92 96 Intake and Output 06/20/21 06/20/21 06/20/21 06:59 14:59 22:59 Other: # Bowel Movements 1 Weight 127.006 kg Results CBC & Chem 7: 06/20/21 09:35 06/20/21 09:35 Labs: Abnormal Lab Results - Last 24 Hours (Table) 06/19/21 06/19/21 06/19/21 Range/Units 20:19 20:19 20:19 RBC 3.93 L (4.30-5.90) m/uL Hgb 11.8 L (13.0-17.5) gm/dL Hct 37.6 L (39.0-53.0) % RDW 18.7 H (11.5-15.5) % Neutrophils # 8.0 H (1.3-7.7) k/uL Lymphocytes # 0.9 L (1.0-4.8) k/uL Sodium 132 L (137-145) mmol/L Chloride 96 L (98-107) mmol/L Carbon Dioxide (22-30) mmol/L BUN 25 H (9-20) mg/dL Creatinine (0.66-1.25) mg/dL Glucose (74-99) mg/dL Calcium (8.4-10.2) mg/dL Total Bilirubin 2.4 H (0.2-1.3) mg/dL Alkaline Phosphatase 222 H (38-126) U/L Total Protein (6.3-8.2) g/dL Albumin 3.3 L (3.5-5.0) g/dL Lipase 409 H (23-300) U/L Ur Specific [place] >1.050 H (1.001-1.035) Urine Protein 1+ H (Negative) Urine Ketones 3+ H (Negative) Urine Bilirubin 1+ H (Negative) Urine Mucus Occasional H (None) /hpf 06/20/21 06/20/21 Range/Units 09:35 09:35 RBC 3.31 L (4.30-5.90) m/uL Hgb 10.0 L D (13.0-17.5) gm/dL Hct 31.4 L (39.0-53.0) % RDW 18.0 H (11.5-15.5) % Neutrophils # (1.3-7.7) k/uL Lymphocytes # 0.8 L (1.0-4.8) k/uL Sodium 131 L (137-145) mmol/L Chloride (98-107) mmol/L Carbon Dioxide 20 L (22-30) mmol/L BUN 23 H (9-20) mg/dL Creatinine 0.64 L (0.66-1.25) mg/dL Glucose 101 H (74-99) mg/dL Calcium 8.1 L (8.4-10.2) mg/dL Total Bilirubin 1.9 H (0.2-1.3) mg/dL Alkaline Phosphatase 168 H (38-126) U/L Total Protein 5.7 L (6.3-8.2) g/dL Albumin 2.7 L (3.5-5.0) g/dL Lipase 315 H (23-300) U/L Ur Specific [place] (1.001-1.035) Urine Protein (Negative) Urine Ketones (Negative) Urine Bilirubin (Negative) Urine Mucus (None) /hpf
[2021-06-21] MEDS: PIPERACILLIN-TAZOBACTAM 3.375 GM in SODIUM CHLORIDE 0.9% 100 ML IVPB SCH ×3 (00:30→16:17)
[2021-06-21] MEDS: SODIUM CHLORIDE 0.9% 1,000 ML IV SCH ×2 (06:03→16:20)
[2021-06-21] MEDS: PANTOPRAZOLE 40 MG TABLET PO SCH (08:27)
[2021-06-21] MEDS: traMADol 50 MG TAB PO PRN (09:32)
[2021-06-21 09:35] LABS: HCT 28.6 % (39.6-50.0); HGB 8.8 g/dL (13.0-17.0); MCH 29.4 pg (27.0-32.0); MCHC 30.8 g/dL (32.0-37.0); MCV 95.7 fL (80.0-97.0); Mean Platelet Volume 9.7 fL (9.5-12.2); NRBC Per 100 WBC 0 /100 WBCS (0.0-0.0); Platelet Count 176 X 10*3/uL (140-440); RBC 2.99 X 10*6/uL (4.40-5.60); RDW 19.7 % (11.5-14.5); WBC 6.05 X 10*3/uL (4.50-10.00)
[2021-06-21] MEDS: HEPARIN SODIUM,PORCINE/PF 5,000 UNIT/0.5 ML SYRINGE SQ SCH ×2 (09:43→23:55)
[2021-06-21 09:51] LABS: African American GFR (CKD) 146.1 (60.0-200.0); Albumin 2.6 g/dL (3.8-4.9); Albumin/Globulin Ratio 0.99 (1.60-3.17); Anion Gap 12.7 mmol/L (10.00-18.00); BUN/Creat Ratio 32.03 Ratio (12.00-20.00); Blood Urea Nitrogen 18.8 mg/dL (9.0-27.0); Calcium 7.9 mg/dL (8.7-10.3); Carbon Dioxide 20.2 mmol/L (20.0-27.5); Globulin 2.6 g/dL (1.6-3.3); Potassium 3.8 mmol/L (3.5-5.5); Total Bilirubin 1.2 mg/dL (0.30-1.20); Total Protein 5.2 g/dL (6.2-8.2)
[2021-06-21 10:32] LABS: Basophils # (A) 0.03 X 10*3/uL (0.00-0.10); Basophils % (A) 0.5 %; Eosinophils # (A) 0.15 X 10*3/uL (0.04-0.35); Eosinophils % (A) 2.5 %; Immature Grans, Automated 1.2 %; Lymphocytes % (A) 13.2 %; Monocytes # (A) 0.49 X 10*3/uL (0.20-1.00); Monocytes % (A) 8.1 %; Neutrophils # (A) 4.51 X 10*3/uL (1.80-7.70); Neutrophils % (A) 74.5 %
--- NOTE | 2021-06-21 11:10 | P.PN ---
Subjective 41-year-old male with history of Crohn's disease and abscess had a ileocolectomy on 05/28/2021 subsequently discharged to [facility] patient rehabitation patient won't cultures during previous hospital physicians showed E. coli and Keke patient to complete the treatment with Augmentin and Diflucan. I did evaluate this patient at [facility] rehabilitation at that time I obtain the cultures as there was concern about new infection in the surgical site area will obtain those cultures, infectious disease evaluated the patient there. Patient was subsequently discharged. came in with the increase the pain and infection of the surgical site area now. Patient had a CT of the abdomen which is concerning for ileus although patient was having normal bowel movements. Patient is hyponatremic. Patient will sugars are highly elevated lower obtain hemoglobin and patient was started on insulin regimen along with sliding scale. 06/21/2021 Patient was evaluated by general surgery and the infectious disease. There is mild area of redness, infectious disease doesn't believe patient has significant superficial infection there is no evidence of abscesses on the CT either although patient may need only back as per infectious disease cultures are pending patient is being can urine Zosyn. Constitutional: Denied any fatigue denied any fever. Cardio vascular: denied any chest pain, palpitations Gastrointestinal denied any nausea vomiting Pulmonary: Denied any shortness of breath cough Neurologic denied any new focal deficits All inpatient medications were reviewed and appropriate changes in these medications as dictated in the interval history and assessment and plan. PHYSICAL EXAMINATION: GENERAL: The patient is alert and oriented x3, not in any acute distress. Well developed, well nourished. HEENT: Pupils are round and equally reacting to light. EOMI. No scleral icterus. No conjunctival pallor. Normocephalic, atraumatic. No pharyngeal erythema. No thyromegaly. CARDIOVASCULAR: S1 and S2 present. No murmurs, rubs, or gallops. PULMONARY: Chest is clear to auscultation, no wheezing or crackles. ABDOMEN: Soft, nontender, nondistended, normoactive bowel sounds. No palpable organomegaly. MUSCULOSKELETAL: No joint swelling or deformity. EXTREMITIES: No cyanosis, clubbing, or pedal edema. NEUROLOGICAL: Gross neurological examination did not reveal any focal deficits. SKIN: surgical site area. It appeared to be infected with purulent discharge Assessment and plan -Abdominal surgical site infection, possible: 1 cultures are pending, as is being continued on Zosyn although there is no significant evidence of superficial or deep infection. -Ileus as per CAT scan patient was having bowel movements -History of Crohn's disease status post redo colectomy -Hypovolemic hyponatremia IV fluids will be continued improving serum sodium DVT prophylaxis: Subcutaneous heparin Objective - Vital Signs Vital signs: Vital Signs Temp 98.4 F 06/21/21 08:14 Pulse 92 06/21/21 08:14 Resp 18 06/21/21 08:14 BP 108/71 06/21/21 08:14 Pulse Ox 96 06/21/21 08:14 Intake & Output 06/20/21 06/21/21 06/21/21 18:59 06:59 18:59 Intake Total 300 420 Output Total 600 Balance 300 -180 Weight 127.006 kg Intake: Intake, IV Titration 300 Amount Sodium Chloride 0.9% 1, 300 000 ml @ 75 mls/hr IV . [id number] MARIELOS Rx#:[id number] Oral 420 Output: Urine 600 Other: # Voids 1 # Bowel Movements 1 - Labs CBC & Chem 7: 06/21/21 06:40 06/21/21 06:40 Labs: Abnormal Lab Results - Last 24 Hours (Table) 06/21/21 06/21/21 Range/Units 06:40 06:40 RBC 2.99 L (4.40-5.60) X 10*6/uL Hgb 8.8 L (13.0-17.0) g/dL Hct 28.6 L (39.6-50.0) % MCHC 30.8 L (32.0-37.0) g/dL RDW 19.7 H (11.5-14.5) % Immature Gran # 0.07 H (0.00-0.04) X 10*3/uL Lymphocytes # 0.80 L (0.90-5.00) X 10*3/uL Sodium 133 L (135-145) mmol/L BUN/Creatinine Ratio 32.03 H (12.00-20.00) Ratio Calcium 7.9 L (8.7-10.3) mg/dL Alkaline Phosphatase 144 H (41-126) U/L Total Protein 5.2 L (6.2-8.2) g/dL Albumin 2.6 L (3.8-4.9) g/dL Albumin/Globulin Ratio 0.99 L (1.60-3.17) g/dL Microbiology - Last 24 Hours (Table) 06/20/21 13:00 Gram Stain - Preliminary Abdomen Wound Culture - Preliminary Gram Neg Bacilli 06/20/21 13:01 Anaerobic Culture - Preliminary Abdomen
--- NOTE | 2021-06-21 13:23 | P.PN ---
Subjective Progress Note Date: 06/21/21 CHIEF COMPLAINT: Drainage from abdominal incision HISTORY OF PRESENT ILLNESS: D drainage from patient's abdominal incision is bilious. They're concerned the patient may have a leak at his anastomosis from previous surgery. Patient does have history of Crohn's disease. Dr. Tan will be taking patient to surgery for exploratory laparotomy later this evening. Patient's denies any nausea or vomiting. He does have some abdominal pain at the incision site. He also is reporting air is coming out of the incision. He denies a nausea vomiting he is having bowel movements. Afebrile. WBC 6.05 hemoglobin is down to 8.8 Patient seen and examined with Dr. steen PHYSICAL EXAM: VITAL SIGNS: Reviewed. GENERAL: Well-developed in no acute distress. HEENT: No sclera icterus. Extraocular movements grossly intact. Moist buccal mucosa. Head is atraumatic, normocephalic. ABDOMEN: Soft. Nondistended. Incision site with 3 open areas. The drainage is now bilious and large amount. NEUROLOGIC: Alert and oriented. Cranial nerves II through XII grossly intact. ASSESSMENT: 1. Bilious drainage from incision site with concerns of anastomotic leak 2. Ileus 3. Crohn's disease with abscess status post ileocolectomy and washout of peritoneal abscess on 05/28/2021 4. Generalized weakness PLAN: -Patient scheduled for exploratory laparotomy today with Dr. steen -Continue supportive care -Keep patient nothing by mouth Physician Chronometer Assembler And Adjuster note has been reviewed by physician. Signing provider agrees with the documented findings, assessment, and plan of care. Objective - Vital Signs Vital signs: Vital Signs Temp 98.4 F 06/21/21 11:30 Pulse 92 06/21/21 11:30 Resp 18 06/21/21 08:14 BP 108/71 06/21/21 11:30 Pulse Ox 96 06/21/21 11:30 Intake & Output 06/20/21 06/21/21 06/21/21 18:59 06:59 18:59 Intake Total 300 420 Output Total 600 Balance 300 -180 Weight 127.006 kg 127.006 kg Intake: Intake, IV Titration 300 Amount Sodium Chloride 0.9% 1, 300 000 ml @ 75 mls/hr IV . [id number] MARIELOS Rx#:[id number] Oral 420 Output: Urine 600 Other: # Voids 1 # Bowel Movements 1 - Labs CBC & Chem 7: 06/21/21 06:40 06/21/21 06:40 Labs: Abnormal Lab Results - Last 24 Hours (Table) 06/21/21 06/21/21 Range/Units 06:40 06:40 RBC 2.99 L (4.40-5.60) X 10*6/uL Hgb 8.8 L (13.0-17.0) g/dL Hct 28.6 L (39.6-50.0) % MCHC 30.8 L (32.0-37.0) g/dL RDW 19.7 H (11.5-14.5) % Immature Gran # 0.07 H (0.00-0.04) X 10*3/uL Lymphocytes # 0.80 L (0.90-5.00) X 10*3/uL Sodium 133 L (135-145) mmol/L BUN/Creatinine Ratio 32.03 H (12.00-20.00) Ratio Calcium 7.9 L (8.7-10.3) mg/dL Alkaline Phosphatase 144 H (41-126) U/L Total Protein 5.2 L (6.2-8.2) g/dL Albumin 2.6 L (3.8-4.9) g/dL Albumin/Globulin Ratio 0.99 L (1.60-3.17) g/dL Microbiology - Last 24 Hours (Table) 06/20/21 13:00 Gram Stain - Preliminary Abdomen Wound Culture - Preliminary Gram Neg Bacilli 06/20/21 13:01 Anaerobic Culture - Preliminary Abdomen
[2021-06-21] MEDS ORDERED: SUCCINYLCHOLINE CHLORIDE 100 MG/5 ML SYR IV ONE (19:28)
[2021-06-21] MEDS ORDERED: MIDAZOLAM 2 MG/2 ML VIAL ONE (19:28)
[2021-06-21] MEDS ORDERED: fentaNYL (PF) 50 MCG/ML 2 ML AMP ONE (19:28)
[2021-06-21] MEDS ORDERED: PROPOFOL 10 MG/ML 20 ML VIAL IV ONE (19:28)
[2021-06-21] MEDS ORDERED: ROCURONIUM 10 MG/ML (5 ML VIAL) IV ONE (19:28)
[2021-06-21] MEDS ORDERED: IV FLUID CONTINUATION 1,000 ML IV ONE (19:28)
[2021-06-21] MEDS ORDERED: LIDOCAINE 1% INJ 10MG/ML (20 ML MDV) ONE (19:28)
[2021-06-21] MEDS ORDERED: HYDROmorphone (PF) 1 MG/ML ONE (19:28)
[2021-06-21] MEDS ORDERED: LABETALOL 5 MG/ML VIAL MDV ONE (19:28)
[2021-06-21] MEDS ORDERED: LACTATED RINGERS 1,000 ML IV ONE ×2 (19:52→20:46)
--- NOTE | 2021-06-21 21:36 | XR ---
EXAMINATION TYPE: XR abdomen 1V DATE OF EXAM: 06/21/2021 9:25 PM INDICATION: Patient age:Male; 41 years old; Reason for study: SPONGE. COMPARISON: None TECHNIQUE: One radiographic view of the abdomen was obtained. FINDINGS: No evidence of radiopaque foreign body. The bowel gas pattern is nonspecific without dilate d loops of small or large bowel. The osseous structures are intact. No abnormal calcifications are present. Fecal material and gas are demonstrated throughout the colon and rectum. IMPRESSION: 1. No evidence of radiopaque foreign body. 2. Nonspecific bowel gas pattern without radiographic evidence for acute process.
--- NOTE | 2021-06-21 21:52 | P.OP ---
Date of Procedure: 06/21/21 Preoperative Diagnosis: Perforated viscus Postoperative Diagnosis: Abdominal fascial dehiscence Perforated small bowel Intra-abdominal abscess Procedure(s) Performed: Exploratory laparotomy Small bowel resection Right colectomy Ileostomy Anesthesia: JASON Surgeon: Marco A Marsh Estimated Blood Loss (ml): 100 Pathology: other (Small bowel, colon) Condition: stable Disposition: ICU Description of Procedure: Patient's placed on the operative table in supine position. He received general anesthesia. His abdomen was prepped and draped in sterile fashion. There were several small skin bridges opened. The fascia exam. There appeared to be dehisced the fascia. Within the fascial dehiscence there was small bowel. There was a pinpoint opening in the small bowel. Small bowel adhesions were lysed. Approximately 25 minutes of operative time used to lyse adhesions. Once the small bowel was lysed free. It was decided to perform a small bowel resection were the enterostomy of the bowel was. The small bowel was transected proximally distally with the YAYA stapler. Using the Enseal device the mesentery the bowel was divided. A [id number] functional end-to-end staple anastomosis created using YAYA and TA stapler. 3 adjacent structures. The sutures using a crotch stitch. The adhesions in the abdominal cavity were lysed. In the right lower quadrant where his previous anastomosis was there was an abscess. Due to the abscess and history of Crohn's disease decided to take the anastomosis down. The terminal ileum was transected with a GI stapler. And then using blunt and sharp dissection and electrocautery the right colon was dissected free. The mesentery the bowel was divided with the Enseal device. The specimens of pathology. The abdomen was areas of bleeding seen. The ileostomies then brought up in the right upper quadrant. The fascia was closed with looped #1 PDS suture and #5 Ethibond retention sutures were also placed. Prior to closing the fascia the sponge count was incorrect. There were 31 sponges counted. However on the original count there was only 30 sponges noted. It was thought that there was an extra sponge and with the packages. Due to the sponge count discrepancy a abdominal x-rays performed. I could not see any sponges. On the x-ray. The fascial sutures then closed. The ileostomy was matured. The wound was packed with dry Kerlix. Patient was sent to the ICU intubated in guarded condition.
[2021-06-21] MEDS ORDERED: propofoL 100 ML IV ONE (21:53)
[2021-06-21 22:21] LABS: ABG Base Excess -4.8 mmol/L; ABG HCO3 21 mmol/L (21-25); ABG PCO2 40 mmHg (35-45); ABG PH 7.33 (7.35-7.45); ABG PO2 306 mmHg (83-108); ABG TCO2 22 mmol/L (19-24); Allen Test Performed? Yes
[2021-06-21 22:22] LABS: Glucose,Whole Blood 144 mg/dL (75-99)
--- NOTE | 2021-06-21 22:44 | P.PN ---
Subjective Progress Note Date: 06/21/21 Principal diagnosis: Abdominal wound infection Patient is 41 year male with a past medical history significant for Crohn's disease in this patient who recently did have a laparotomy for abdominal abscess, no readmitted to the hospital with abdominal pain and concern for abdominal wound dehiscence and possible infection. On today's evaluation that is 06/21/2021, the patient denies having any fever or any chills, abdominal pain is currently controlled, no nausea no vomiting no chest pain shortness of breath or cough and no diarrhea Objective - Vital Signs Vital signs: Vital Signs Temp 98.4 F 06/21/21 11:30 Pulse 92 06/21/21 11:30 Resp 18 06/21/21 08:14 BP 108/71 06/21/21 11:30 Pulse Ox 96 06/21/21 11:30 Intake & Output 06/20/21 06/21/21 06/21/21 18:59 06:59 18:59 Intake Total 300 420 Output Total 600 Balance 300 -180 Weight 127.006 kg 127.006 kg Intake: Intake, IV Titration 300 Amount Sodium Chloride 0.9% 1, 300 000 ml @ 75 mls/hr IV . [id number] MARIELOS Rx#:[id number] Oral 420 Output: Urine 600 Other: # Voids 1 # Bowel Movements 1 - Exam GENERAL DESCRIPTION:[ Patient is awake and alert in no distress] HEENT: [Oral mucosa is dry and no pharyngeal erythema] RESPIRATORY SYSTEM: [Unlabored breathing clear to auscultation] CARDIA VASCULAR SYSTEM: [S1-S2 regular rate and rhythm no murmur] GI: [Abdominal soft midline incision is currently dressed no significant drainage of the dressing EXTREMITIES: [No edema feet] - Labs CBC & Chem 7: 06/21/21 06:40 06/21/21 06:40 Labs: Abnormal Lab Results - Last 24 Hours (Table) 06/21/21 06/21/21 Range/Units 06:40 06:40 RBC 2.99 L (4.40-5.60) X 10*6/uL Hgb 8.8 L (13.0-17.0) g/dL Hct 28.6 L (39.6-50.0) % MCHC 30.8 L (32.0-37.0) g/dL RDW 19.7 H (11.5-14.5) % Immature Gran # 0.07 H (0.00-0.04) X 10*3/uL Lymphocytes # 0.80 L (0.90-5.00) X 10*3/uL Sodium 133 L (135-145) mmol/L BUN/Creatinine Ratio 32.03 H (12.00-20.00) Ratio Calcium 7.9 L (8.7-10.3) mg/dL Alkaline Phosphatase 144 H (41-126) U/L Total Protein 5.2 L (6.2-8.2) g/dL Albumin 2.6 L (3.8-4.9) g/dL Albumin/Globulin Ratio 0.99 L (1.60-3.17) g/dL Microbiology - Last 24 Hours (Table) 06/20/21 13:00 Gram Stain - Preliminary Abdomen Wound Culture - Preliminary Gram Neg Bacilli 06/20/21 13:01 Anaerobic Culture - Preliminary Abdomen Assessment and Plan (1) Incisional infection Current Visit: Yes Status: Acute Code(s): T81.49XA - INFECTION FOLLOWING A PROCEDURE, OTHER SURGICAL SITE, INIT SNOMED Code(s): 12703297 Plan: 1-patient admitted to the hospital with abdominal pain with abdominal incision dehiscence and concern for possible deep infection, for possible surgical exploration later this afternoon patient is empirically covered with Zosyn which will be continued local wound care as ordered and monitor his clinical course closely Time with Patient: Less than 30
[2021-06-21 23:04] LABS: Glucose,Whole Blood 138 mg/dL (75-99)
[2021-06-22] MEDS: SODIUM CHLORIDE 0.9% 1,000 ML IV SCH ×4 (00:45→17:57)
[2021-06-22] MEDS: PIPERACILLIN-TAZOBACTAM 3.375 GM in SODIUM CHLORIDE 0.9% 100 ML IVPB SCH ×4 (00:45→23:30)
[2021-06-22] MEDS ORDERED: SODIUM CHLORIDE 0.9% 1,000 ML IV ONE (02:04)
[2021-06-22 05:38] LABS: ABG Base Excess -7.4 mmol/L; ABG HCO3 18 mmol/L (21-25); ABG Oxygen Saturation 98.4 % (94-97); ABG PCO2 29 mmHg (35-45); ABG PH 7.39 (7.35-7.45); ABG PO2 158 mmHg (83-108); ABG TCO2 19 mmol/L (19-24); Allen Test Performed? Yes
[2021-06-22 06:25] LABS: Anisocytosis Slight; HCT 33.7 % (39.0-53.0); HGB 10.3 gm/dL (13.0-17.5); Hypochromasia Marked; MCH 29.8 pg (25.0-35.0); MCHC 30.5 g/dL (31.0-37.0); MCV 97.6 fL (80.0-100.0); Macrocytosis Slight; Mean Platelet Volume 8.9; RBC 3.45 m/uL (4.30-5.90); RDW 17.8 % (11.5-15.5)
[2021-06-22 06:26] LABS: Platelet Count 364 k/uL (150-450)
[2021-06-22 06:39] LABS: ALT 28 U/L (4-49); AST 47 U/L (17-59); African American GFR (CKD) >90 (>60 ml/min/1.73 sqM); Albumin 2.5 g/dL (3.5-5.0); Alkaline Phosphatase 110 U/L (38-126); Anion Gap 9 mmol/L; Blood Urea Nitrogen 22 mg/dL (9-20); Calcium 7.8 mg/dL (8.4-10.2); Carbon Dioxide 16 mmol/L (22-30); Chloride 107 mmol/L (98-107); Glucose 149 mg/dL (74-99); Non-African American GFR(CKD) 88 (>60 ml/min/1.73 sqM); Potassium 5.9 mmol/L (3.5-5.1); Sodium 132 mmol/L (137-145); Total Bilirubin 2.3 mg/dL (0.2-1.3); Total Protein 5.6 g/dL (6.3-8.2)
[2021-06-22 06:45] LABS: Band Neutrophils % 42 %; Lymphocytes # (M) 0.22 k/uL (1.0-4.8); Metamyelocytes # (M) 0.22 k/uL (0); Metamyelocytes % 1 %; Neutrophils % (M) 46 %; Nucleated Red Blood Cells 0 /100 WBC (0-0); Total Cells Counted 200; Toxic Granulation Present
--- NOTE | 2021-06-22 07:25 | XR ---
EXAMINATION TYPE: XR chest 1V DATE OF EXAM: 06/22/2021 COMPARISON: 06/07/2021 HISTORY: SOB, Follow Up FINDINGS: Indwelling tubes and catheters are unchanged. Persistent but improving basilar infiltrates and/or atelectasis. Stable appearance of the cardio-mediastinal structures at this time. Pleural effusion unchanged. IMPRESSION: 1. Persistent but improving basilar infiltrates and/or atelectasis.
[2021-06-22] MEDS ORDERED: SODIUM CHLORIDE 0.9% 2,000 ML IV ONE (08:07)
[2021-06-22] MEDS: HEPARIN SODIUM,PORCINE/PF 5,000 UNIT/0.5 ML SYRINGE SQ SCH (08:12)
[2021-06-22] MEDS: PANTOPRAZOLE 40 MG TABLET PO SCH (08:12)
[2021-06-22] MEDS: ENOXAPARIN 40 MG/0.4 ML SYRINGE SQ SCH (08:22)
[2021-06-22] MEDS: HYDROmorphone 1 MG/ML 1 ML SYRINGE IVP PRN ×4 (08:24→23:21)
--- NOTE | 2021-06-22 10:36 | P.CNPUL ---
History of Present Illness Consult date: 06/22/21 Requesting physician: Marco A Marsh Reason for consult: other Chief complaint: abdominal sepsis, purulent drainage from the incision History of present illness: This is a 41-year-old white male patient who was recently hospitalized From 05/25/2021 through 06/09/2021 for acute abdomen related to abscess formation and perforation with pneumoperitoneum, and acute COVID-19 related to pneumonia. During his stay patient underwent right colectomy, resection of terminal ileum and end to end anastomosis by Dr. Marsh. He required ICU admission, IV antibiotics, patient was successfully weaned and extubated, she was started on oral feedings, she is doing very well, and following his discharge he went to inpatient rehab. On 06/19/2021 patient came into the emergency department with complaints of abdominal pain, purulent drainage from his abdominal incision. Poor appetite. No complaints of nausea or vomiting, no diarrhea or constipation, no fever or chills. Patient was recently discharged from the inpatient rehab and was at home for the past few days. His abdominal and pelvic CT showed dilated small bowel suggestive of severe ileus or distal mechanical small bowel obstruction, previous surgery at the cecum, there was clearing of the pneumoperitoneum, there was improvement in the infiltrates at the lung bases. Patient was taken to surgery on the 06/19/2021 for evidence of per forated viscus and abdominal fascial dehiscence, and underwent exploratory laparotomy, small bowel resection, right colectomy and ileostomy by Dr. Marsh. Patient returned intubated and sedated on mechanical ventilator after surgery to the intensive care unit, he was given a liter bolus in the ICU, she is tachycardic, but not requiring any vasopressor support, low-grade fever this morning, he is currently on assist control mode of ventilation with a rate of 14, tidal volume 600, FiO2 of 40% and PEEP of 8, despite blood gas shows pO2 of 158, pCO2 29, and pH of 7.39 this was done and the above-mentioned event settings. He is currently sedated with Diprivan at 50 mics per kilo per minute, and 0.9 normal saline at a rate of 150 ML per hour, he is urine output is quite dark and scant. She will be given additional fluid boluses. She is currently on Zosyn, his wound cultures are growing gram-negative bacilli. Chest x-ray this morning shows persistent but improving basilar infiltrates and or atelectasis. Today's lab work is been reviewed, showing white blood cell count of 22, hemoglobin of 10.3, sodium is 132, potassium is 5.9, chloride is 107, CO2 is 16, B1 is 22, creatinine is 1.05. His total bilirubin is 2.3, LFTs were within normal limits. His mid abdominal incision is covered with surgical dressing, his right abdominal colostomy has not produced any stool or gas. Bowel sounds are absent. Patient is waking up, not following command, does not appear to be in any acute distress. Review of Systems All systems: negative Constitutional: Denies chills, Denies fever Eyes: denies blurred vision, denies pain Ears, nose, mouth and throat: Denies headache, Denies sore throat Cardiovascular: Denies chest pain, Denies shortness of breath Respiratory: Denies cough Gastrointestinal: Reports abdominal pain, Denies diarrhea, Denies nausea, Denies vomiting Musculoskeletal: Denies myalgias Integumentary: Denies pruritus, Denies rash Neurological: Denies numbness, Denies weakness Psychiatric: Denies anxiety, Denies depression Endocrine: Denies fatigue, Denies weight change Past Medical History Past Medical History: No Reported History Additional Past Medical History / Comment(s): Recently had surgery for chron's with peritoneal abscess, covid + 05/17/21. History of Any Multi-Drug Resistant Organisms: None Reported Past Surgical History: Hernia Repair Additional Past Surgical History / Comment(s): 05/28/21 ileocolectomy with washout pf pertioneal abscess, R inguinal hernia repair. Past Anesthesia/Blood Transfusion Reactions: No Reported Reaction Past Psychological History: No Psychological Hx Reported Smoking Status: Former smoker Past Alcohol Use History: Occasional Past Drug Use History: None Reported - Past Family History Father Family Medical History: No Reported History Additional Family Medical History / Comment(s): Father is healthy Mother Family Medical History: Eye Disorder Additional Family Medical History / Comment(s): Mother has glaucoma Medications and Allergies Home Medications Medication Instructions Recorded Confirmed Type Albuterol Sulfate [Albuterol 2 puff PO RT-Q6H PRN 06/19/21 06/19/21 History Sulfate Hfa] Ascorbic Acid [Vitamin C] 500 mg PO DAILY 06/19/21 06/19/21 History Cephalexin [Keflex] 500 mg PO Q6HR #40 cap 06/19/21 Rx Cholecalciferol [Vitamin D3 (25 50 mcg PO DAILY 06/19/21 06/19/21 History Mcg = 1000 Iu)] Sulfamethoxazole/Trimethoprim 1 each PO BID #20 tablet 06/19/21 Rx [Bactrim DS 800-160 mg] Zinc 50 mg PO DAILY 06/19/21 06/19/21 History traMADol HCl [Ultram] 50 mg PO Q6HR PRN 06/19/21 06/19/21 History Allergies Allergy/AdvReac Type Severity Reaction Status Date / Time acetaminophen [From Tylenol] Allergy Chest Pain Verified 05/25/21 21:37 Physical Exam Vitals: Vital Signs Temp Pulse Pulse Resp BP BP Pulse Ox 06/22/21 08:30 116 H 16 109/70 96 06/22/21 08:00 100 F H 137 H 22 109/65 95 06/22/21 07:30 133 H 19 97/79 95 06/22/21 07:00 125 H 21 101/80 95 06/22/21 06:50 126 H 21 06/22/21 06:40 123 H 20 06/22/21 06:30 122 H 20 107/71 06/22/21 06:20 124 H 21 107/71 06/22/21 06:10 124 H 20 107/71 06/22/21 06:00 115 H 18 87/67 06/22/21 05:50 114 H 17 87/67 06/22/21 05:40 115 H 19 87/67 06/22/21 05:30 113 H 19 103/75 06/22/21 05:20 118 H 20 103/75 97 06/22/21 05:10 114 H 20 103/75 97 06/22/21 05:00 109 H 20 110/74 98 06/22/21 04:50 112 H 20 110/74 98 06/22/21 04:40 112 H 19 110/74 98 06/22/21 04:30 109 H 18 107/70 98 06/22/21 04:20 108 H 18 107/70 98 06/22/21 04:10 110 H 17 107/70 98 06/22/21 04:00 98.2 F 108 H 19 104/69 98 06/22/21 03:50 106 H 20 104/69 99 06/22/21 03:40 105 H 17 104/69 98 06/22/21 03:30 102 H 18 101/65 99 06/22/21 03:20 105 H 18 101/65 98 06/22/21 03:10 106 H 18 101/65 98 06/22/21 03:00 106 H 18 101/65 97 06/22/21 02:50 107 H 17 99 06/22/21 02:40 106 H 20 98 06/22/21 02:30 106 H 20 97/67 98 06/22/21 02:20 103 H 19 97/67 99 06/22/21 02:10 107 H 19 97/67 99 06/22/21 02:00 108 H 18 91/68 97 06/22/21 01:50 111 H 20 91/68 97 06/22/21 01:40 115 H 17 94/72 97 06/22/21 01:30 121 H 18 94/72 96 06/22/21 01:20 128 H 9 L 94/72 96 06/22/21 01:10 126 H 19 94/72 97 06/22/21 01:00 134 H 17 104/85 98 06/22/21 00:50 137 H 21 104/85 97 06/22/21 00:40 147 H 22 104/85 97 06/22/21 00:30 147 H 18 104/85 96 06/22/21 00:20 151 H 22 104/85 97 06/22/21 00:10 149 H 18 104/85 97 06/22/21 00:00 99.7 F H 156 H 20 104/85 98 06/21/21 23:50 156 H 23 104/85 98 06/21/21 23:40 154 H 20 98 06/21/21 23:30 158 H 19 110/77 97 06/21/21 23:20 156 H 18 110/77 98 06/21/21 23:10 152 H 17 110/77 98 06/21/21 23:00 151 H 18 112/77 98 06/21/21 22:50 149 H 18 112/77 98 06/21/21 22:40 152 H 15 111/86 98 06/21/21 22:30 152 H 18 111/86 98 06/21/21 22:20 146 H 16 113/84 98 06/21/21 22:10 146 H 15 142/96 98 06/21/21 22:00 149 H 14 142/96 98 06/21/21 21:53 90 L 06/21/21 11:30 98.4 F 92 108/71 96 Intake and Output 06/21/21 06/22/21 06/22/21 22:59 06:59 14:59 Intake Total 3300 2100.000 400 Output Total 700 210 60 Balance 2600 1890.000 340 Intake: IV 2200 2000 300 Piperacillin-Tazobactam 3 100 .375 gm In Sodium Chloride 0.9% 100 ml @ 25 mls/hr IVPB Q8HR [facility] Rx# :[id number] Sodium Chloride 0.9% 1, 900 300 000 ml @ 150 mls/hr IV . Q6H40M [facility] Rx#:[id number] Sodium Chloride 0.9% 1, 1000 000 ml @ 999 mls/hr IV . Q1H1M [facility] Rx#:[id number] Intake, IV Titration 1100 100.000 100 Amount Piperacillin-Tazobactam 3 200 .375 gm In Sodium Chloride 0.9% 100 ml @ 25 mls/hr IVPB Q8HR [facility] Rx# :[id number] Sodium Chloride 0.9% 1, 900 000 ml @ 75 mls/hr IV . [id number] [facility] Rx#:[id number] propofoL 1,000 mg In 100.000 100 Empty Bag 1 bag @ Titrate IV .Q0M [facility] Rx#: [id number] Output: Drainage 100 30 Abdomen 100 30 Urine 400 110 30 Estimated Blood Loss 300 Other: # Voids 1 Weight 111.2 kg GENERAL EXAM: Sedated, intubated, 41-year-old white male, on assist control mode of ventilation with a rate of 14, tidal on 600, FiO2 of 40% and PEEP of 8, comfortable in no apparent distress. HEAD: Normocephalic/atraumatic. EYES: Normal reaction of pupils, equal size. Conjunctiva pink, sclera white. NOSE: Clear with pink turbinates. THROAT: No erythema or exudates. NECK: No masses, no JVD, no thyroid enlargement, no adenopathy. CHEST: No chest wall deformity. Symmetrical expansion. LUNGS: Equal air entry with no crackles, wheeze, rhonchi or dullness. CVS: Regular rate and rhythm, normal S1 and S2, no gallops, no murmurs, no rubs ABDOMEN: Soft, nontender. No hepatosplenomegaly, normal bowel sounds, no guarding or rigidity. At abdominal incision is clean dry and intact, right abdominal colostomy in place, no stool or gas yet, ADRIAN drain in the right abdomen with small amount of serosanguineous output compressed and draining EXTREMITIES: No clubbing, no edema, no cyanosis, 2+ pulses and upper and lower extremities. MUSCULOSKELETAL: Muscle strength and tone normal. SPINE: No scoliosis or deformity SKIN: No rashes CENTRAL NERVOUS SYSTEM: Alert and oriented -3. No focal deficits, tone is normal in all 4 extremities. PSYCHIATRIC: Alert and oriented -3. Appropriate affect. Intact judgment and insight. Results - Laboratory Findings CBC and BMP: 06/22/21 05:49 06/22/21 05:49 ABG ABG pH 7.39 (7.35-7.45) 06/22/21 05:23 ABG pCO2 29 mmHg (35-45) L 06/22/21 05:23 ABG pO2 158 mmHg (83-108) H 06/22/21 05:23 ABG O2 Saturation 98.4 % (94-97) H 06/22/21 05:23 Abnormal lab findings: Abnormal Labs 06/19/21 06/19/21 06/19/21 20:19 20:19 20:19 WBC RBC 3.93 L Hgb 11.8 L Hct 37.6 L MCHC RDW 18.7 H Immature Gran # Neutrophils # 8.0 H Neutrophils # (Manual) Lymphocytes # 0.9 L Lymphocytes # (Manual) Monocytes # (Manual) Metamyelocytes # (Man) ABG pH ABG pCO2 ABG pO2 ABG HCO3 ABG O2 Saturation Sodium 132 L Potassium Chloride 96 L Carbon Dioxide BUN 25 H Creatinine BUN/Creatinine Ratio Glucose POC Glucose (mg/dL) Calcium Total Bilirubin 2.4 H Alkaline Phosphatase 222 H Total Protein Albumin 3.3 L Albumin/Globulin Ratio Lipase 409 H Ur Specific Colwell >1.050 H Urine Protein 1+ H Urine Ketones 3+ H Urine Bilirubin 1+ H Urine Mucus Occasional H 06/20/21 06/20/21 06/21/21 09:35 09:35 06:40 WBC RBC 3.31 L 2.99 L Hgb 10.0 L D 8.8 L Hct 31.4 L 28.6 L MCHC 30.8 L RDW 18.0 H 19.7 H Immature Gran # 0.07 H Neutrophils # Neutrophils # (Manual) Lymphocytes # 0.8 L 0.80 L Lymphocytes # (Manual) Monocytes # (Manual) Metamyelocytes # (Man) ABG pH ABG pCO2 ABG pO2 ABG HCO3 ABG O2 Saturation Sodium 131 L Potassium Chloride Carbon Dioxide 20 L BUN 23 H Creatinine 0.64 L BUN/Creatinine Ratio Glucose 101 H POC Glucose (mg/dL) Calcium 8.1 L Total Bilirubin 1.9 H Alkaline Phosphatase 168 H Total Protein 5.7 L Albumin 2.7 L Albumin/Globulin Ratio Lipase 315 H Ur Specific Colwell Urine Protein Urine Ketones Urine Bilirubin Urine Mucus 06/21/21 06/21/21 06/21/21 06:40 22:20 22:20 WBC RBC Hgb Hct MCHC RDW Immature Gran # Neutrophils # Neutrophils # (Manual) Lymphocytes # Lymphocytes # (Manual) Monocytes # (Manual) Metamyelocytes # (Man) ABG pH 7.33 L ABG pCO2 ABG pO2 306 H ABG HCO3 ABG O2 Saturation 100.0 H Sodium 133 L Potassium Chloride Carbon Dioxide BUN Creatinine BUN/Creatinine Ratio 32.03 H Glucose POC Glucose (mg/dL) 144 H Calcium 7.9 L Total Bilirubin Alkaline Phosphatase 144 H Total Protein 5.2 L Albumin 2.6 L Albumin/Globulin Ratio 0.99 L Lipase Ur Specific Colwell Urine Protein Urine Ketones Urine Bilirubin Urine Mucus 06/21/21 06/22/21 06/22/21 23:02 05:23 05:49 WBC 22.0 H RBC 3.45 L Hgb 10.3 L Hct 33.7 L MCHC 30.5 L RDW 17.8 H Immature Gran # Neutrophils # Neutrophils # (Manual) 19.30 H Lymphocytes # Lymphocytes # (Manual) 0.22 L Monocytes # (Manual) 2.20 H Metamyelocytes # (Man) 0.22 H ABG pH ABG pCO2 29 L ABG pO2 158 H ABG HCO3 18 L ABG O2 Saturation 98.4 H Sodium Potassium Chloride Carbon Dioxide BUN Creatinine BUN/Creatinine Ratio Glucose POC Glucose (mg/dL) 138 H Calcium Total Bilirubin Alkaline Phosphatase Total Protein Albumin Albumin/Globulin Ratio Lipase Ur Specific Colwell Urine Protein Urine Ketones Urine Bilirubin Urine Mucus 06/22/21 05:49 WBC RBC Hgb Hct MCHC RDW Immature Gran # Neutrophils # Neutrophils # (Manual) Lymphocytes # Lymphocytes # (Manual) Monocytes # (Manual) Metamyelocytes # (Man) ABG pH ABG pCO2 ABG pO2 ABG HCO3 ABG O2 Saturation Sodium 132 L Potassium 5.9 H Chloride Carbon Dioxide 16 L BUN 22 H Creatinine BUN/Creatinine Ratio Glucose 149 H POC Glucose (mg/dL) Calcium 7.8 L Total Bilirubin 2.3 H Alkaline Phosphatase Total Protein 5.6 L Albumin 2.5 L Albumin/Globulin Ratio Lipase Ur Specific Colwell Urine Protein Urine Ketones Urine Bilirubin Urine Mucus - Diagnostic Findings Chest x-ray: report reviewed, image reviewed Additional studies: CT of the abdomen results, and abdominal x-ray results reviewed Assessment and Plan Plan: Assessment: #1. Abdominal fascial dehiscence, perforated small bowel, intra-abdominal abscess, status post exploratory laparotomy, small bowel resection, right colectomy and ileostomy on 06/21/2021. #2. Routine postoperative ventilator management, anticipate sedation holiday and spontaneous breathing trials today with a goal of extubation on postoperative day #1 #3. Recent history of ileal colectomy and washout of peritoneal abscess on #4. Recent COVID-19 related pneumonia #5. Crohn's disease with abscess status post ileocolectomy and peritoneal abscess washout #6. Generalized weakness #7. Ileus #8. Leukocytosis, related to intra-abdominal abscess, patient is covered with Zosyn, 1 cultures are positive for gram-negative bacilli #9. Previous episode of A. fib with RVR during previous admission, currently in sinus mechanism Plan: We'll give the patient additional 2 L of fluid boluses Continue antibiotics We'll await final cultures Continue AC mode of ventilation Increased resp rate to 18, tidal volume has been decreased to 500, FiO2 at 40% and PEEP of 8 Proceed with sedation holiday, and place the patient on pressure support of 8 and CPAP of 5 when the patient is awake and following command We'll proceed with extubation if tolerates spontaneous breathing trials Keep NG tube in place to low intermittent suction We'll continue to follow his clinical course closely Maintain pain control GI and DVT prophylaxis I performed a history & physical examination of the patient and discussed their management with my nurse practitioner, Ирина Woods. I reviewed the nurse practitioner's note and agree with the documented findings and plan of care. Lung sounds are positive for diminished breath sounds throughout the lung moran. The findings and the impression was discussed with the patient. I att est to the documentation by the nurse practitioner. Time with Patient: Greater than 30
[2021-06-22 11:35] LABS: Glucose,Whole Blood 152 mg/dL (75-99)
[2021-06-22] MEDS ORDERED: LIDOCAINE 1% INJ 10MG/ML (20 ML MDV) SQ ONE (13:29)
--- NOTE | 2021-06-22 13:29 | P.PN ---
Subjective 41-year-old male with history of Crohn's disease and abscess had a ileocolectomy on 05/28/2021 subsequently discharged to [facility] patient rehabitation patient won't cultures during previous hospital physicians showed E. coli and Keke patient to complete the treatment with Augmentin and Diflucan. I did evaluate this patient at [facility] rehabilitation at that time I obtain the cultures as there was concern about new infection in the surgical site area will obtain those cultures, infectious disease evaluated the patient there. Patient was subsequently discharged. came in with the increase the pain and infection of the surgical site area now. Patient had a CT of the abdomen which is concerning for ileus although patient was having normal bowel movements. Patient is hyponatremic. Patient will sugars are highly elevated lower obtain hemoglobin and patient was started on insulin regimen along with sliding scale. 06/21/2021 Patient was evaluated by general surgery and the infectious disease. There is mild area of redness, infectious disease doesn't believe patient has significant superficial infection there is no evidence of abscesses on the CT either although patient may need only back as per infectious disease cultures are pending patient is being can urine Zosyn. 06/22/2021 Patient is found to have pneumoperitoneum later in the day and patient underwent emergent laparotomy. With a small bowel resection and right colectomy and ileostomy. Patient is presently intubated on mechanical ventilator with the assist-control ventilation with respiratory rate of 14 and tidal volume of 6 and FiO2 of 40% PEEP of 8 patient is on propofol for sedation white blood cell count went up to 22,000 from normal white count, colostomy is empty at this time. Review of systems: Unable to obtain due to his clinical condition All inpatient medications were reviewed and appropriate changes in these medications as dictated in the interval history and assessment and plan. PHYSICAL EXAMINATION: GENERAL: Intubated sedated HEENT: Pupils are round and equally reacting to light. EOMI. No scleral icterus. No conjunctival pallor. Normocephalic, atraumatic. No pharyngeal erythema. No thyromegaly. CARDIOVASCULAR: S1 and S2 present. No murmurs, rubs, or gallops. PULMONARY: Chest is clear to auscultation, no wheezing or crackles. ABDOMEN: Soft, nontender, nondistended, normoactive bowel sounds. No palpable organomegaly. MUSCULOSKELETAL: No joint swelling or deformity. EXTREMITIES: No cyanosis, clubbing, or pedal edema. NEUROLOGICAL: Sedated at this time SKIN: Postsurgical packing Assessment and plan -Bowel perforation had ileus on admission. Status post laparotomy and small bowel resection, right colectomy ileostomy . Patient is presently on Zosyn -Acute respiratory failure secondary to sepsis post laparotomy. Patient has an NG tube with intermittent suction -History of Crohn's disease status post redo colectomy a few weeks ago -Leukocytosis secondary to sepsis, bowel perforation wound cultures are showing gram-negative bacilli this is from the surgical wound from his previous surgery DVT prophylaxis: Lovenox Objective - Vital Signs Vital signs: Vital Signs Temp 99.6 F 06/22/21 12:00 Pulse 134 H 06/22/21 13:00 Resp 16 06/22/21 13:00 BP 113/89 06/22/21 13:00 Pulse Ox 95 06/22/21 13:00 Intake & Output 06/21/21 06/22/21 06/22/21 18:59 06:59 18:59 Intake Total 1100 4300.000 2948.982 Output Total 910 205 Balance 1100 3390.000 2743.982 Weight 127.006 kg 111.2 kg 111.2 kg Intake: IV 4200 2750 Piperacillin-Tazobactam 3 100 .375 gm In Sodium Chloride 0.9% 100 ml @ 25 mls/hr IVPB Q8HR [facility] Rx# :[id number] Sodium Chloride 0.9% 1, 900 2750 000 ml @ 150 mls/hr IV . Q6H40M [facility] Rx#:[id number] Sodium Chloride 0.9% 1, 1000 000 ml @ 999 mls/hr IV . Q1H1M [facility] Rx#:[id number] Intake, IV Titration 1100 100.000 198.982 Amount Piperacillin-Tazobactam 3 200 .375 gm In Sodium Chloride 0.9% 100 ml @ 25 mls/hr IVPB Q8HR [facility] Rx# :[id number] Sodium Chloride 0.9% 1, 900 000 ml @ 75 mls/hr IV . [id number] [facility] Rx#:[id number] propofoL 1,000 mg In 100.000 198.982 Empty Bag 1 bag @ Titrate IV .Q0M [facility] Rx#: [id number] Output: Drainage 100 30 Abdomen 100 30 Urine 510 175 Estimated Blood Loss 300 Other: # Voids 1 - Labs CBC & Chem 7: 06/22/21 05:49 06/22/21 05:49 Labs: Abnormal Lab Results - Last 24 Hours (Table) 06/21/21 06/21/21 06/21/21 Range/Units 22:20 22:20 23:02 WBC (3.8-10.6) k/uL RBC (4.30-5.90) m/uL Hgb (13.0-17.5) gm/dL Hct (39.0-53.0) % MCHC (31.0-37.0) g/dL RDW (11.5-15.5) % Neutrophils # (Manual) (1.3-7.7) k/uL Lymphocytes # (Manual) (1.0-4.8) k/uL Monocytes # (Manual) (0-1.0) k/uL Metamyelocytes # (Man) (0) k/uL ABG pH 7.33 L (7.35-7.45) ABG pCO2 (35-45) mmHg ABG pO2 306 H (83-108) mmHg ABG HCO3 (21-25) mmol/L ABG O2 Saturation 100.0 H (94-97) % Sodium (137-145) mmol/L Potassium (3.5-5.1) mmol/L Carbon Dioxide (22-30) mmol/L BUN (9-20) mg/dL Glucose (74-99) mg/dL POC Glucose (mg/dL) 144 H 138 H (75-99) mg/dL Calcium (8.4-10.2) mg/dL Total Bilirubin (0.2-1.3) mg/dL Total Protein (6.3-8.2) g/dL Albumin (3.5-5.0) g/dL 06/22/21 06/22/21 06/22/21 Range/Units 05:23 05:49 05:49 WBC 22.0 H (3.8-10.6) k/uL RBC 3.45 L (4.30-5.90) m/uL Hgb 10.3 L (13.0-17.5) gm/dL Hct 33.7 L (39.0-53.0) % MCHC 30.5 L (31.0-37.0) g/dL RDW 17.8 H (11.5-15.5) % Neutrophils # (Manual) 19.30 H (1.3-7.7) k/uL Lymphocytes # (Manual) 0.22 L (1.0-4.8) k/uL Monocytes # (Manual) 2.20 H (0-1.0) k/uL Metamyelocytes # (Man) 0.22 H (0) k/uL ABG pH (7.35-7.45) ABG pCO2 29 L (35-45) mmHg ABG pO2 158 H (83-108) mmHg ABG HCO3 18 L (21-25) mmol/L ABG O2 Saturation 98.4 H (94-97) % Sodium 132 L (137-145) mmol/L Potassium 5.9 H (3.5-5.1) mmol/L Carbon Dioxide 16 L (22-30) mmol/L BUN 22 H (9-20) mg/dL Glucose 149 H (74-99) mg/dL POC Glucose (mg/dL) (75-99) mg/dL Calcium 7.8 L (8.4-10.2) mg/dL Total Bilirubin 2.3 H (0.2-1.3) mg/dL Total Protein 5.6 L (6.3-8.2) g/dL Albumin 2.5 L (3.5-5.0) g/dL 06/22/21 Range/Units 11:33 WBC (3.8-10.6) k/uL RBC (4.30-5.90) m/uL Hgb (13.0-17.5) gm/dL Hct (39.0-53.0) % MCHC (31.0-37.0) g/dL RDW (11.5-15.5) % Neutrophils # (Manual) (1.3-7.7) k/uL Lymphocytes # (Manual) (1.0-4.8) k/uL Monocytes # (Manual) (0-1.0) k/uL Metamyelocytes # (Man) (0) k/uL ABG pH (7.35-7.45) ABG pCO2 (35-45) mmHg ABG pO2 (83-108) mmHg ABG HCO3 (21-25) mmol/L ABG O2 Saturation (94-97) % Sodium (137-145) mmol/L Potassium (3.5-5.1) mmol/L Carbon Dioxide (22-30) mmol/L BUN (9-20) mg/dL Glucose (74-99) mg/dL POC Glucose (mg/dL) 152 H (75-99) mg/dL Calcium (8.4-10.2) mg/dL Total Bilirubin (0.2-1.3) mg/dL Total Protein (6.3-8.2) g/dL Albumin (3.5-5.0) g/dL Microbiology - Last 24 Hours (Table) 06/20/21 13:00 Gram Stain - Preliminary Abdomen Wound Culture - Preliminary Escherichia coli
[2021-06-22 13:38] LABS: African American GFR (CKD) >90 (>60 ml/min/1.73 sqM); Anion Gap 10 mmol/L; Blood Urea Nitrogen 24 mg/dL (9-20); Calcium 7.7 mg/dL (8.4-10.2); Carbon Dioxide 15 mmol/L (22-30); Chloride 109 mmol/L (98-107); Glucose 152 mg/dL (74-99); Non-African American GFR(CKD) 87 (>60 ml/min/1.73 sqM); Potassium 5.8 mmol/L (3.5-5.1); Sodium 134 mmol/L (137-145)
--- NOTE | 2021-06-22 13:59 | XR ---
EXAMINATION TYPE: XR chest 1V confirm line plcmt, XR chest 1V confirm line plcmt DATE OF EXAM: 06/22/2021 COMPARISON: NONE HISTORY: PICC line placement TECHNIQUE: Single frontal view of the chest is obtained. FINDINGS: 2 radiographs are obtained for PICC line placement. The second radiograph demonstrates the distal tip of the PICC line to reside within the SVC. No evidence for pneumothorax. IMPRESSION: 1. As above
--- NOTE | 2021-06-22 14:38 | IR ---
EXAMINATION TYPE: IR cvc insert >=5 years DATE OF EXAM: 06/22/2021 COMPARISON: NONE HISTORY: Infection FINDINGS: Maximal barrier technique was utilized. Hand hygiene obtained with soap and water and alco hol-based hand rub. The skin overlying the right basilic vein was localized with ultrasound and noted to be compressible and patent by ultrasound. An ultrasound image was obtained and submitted on paula ent's chart. Sterile technique utilized with the ultrasound machine. The skin overlying was prepped a nd draped and Lidocaine used for local anesthesia. A skin robbie was made with a scalpel. Access was gained to the vein under direct ultrasound guidance with a 21-gauge needle and a 0.018 inch wire was advanced. Access site was dilated with a peel-away sheath and the catheter tailored to length. Cath eter advanced centrally and a post procedure chest x-ray verified placement with tip at the superior vena cava. Catheter was fixed to the skin and a sterile dressing placed. Hemostasis achieved and th e catheter was aspirated and flushed with sterile saline. The patient remained in stable condition. IMPRESSION: STATUS POST ULTRASOUND GUIDED PICC LINE PLACEMENT, READY FOR USE. THIS PROCEDURE WAS PER FORMED BY THE UNDERSIGNED.
--- NOTE | 2021-06-22 16:31 | P.PN ---
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 Postop day #1. Patient currently in the ICU and was sent from the OR to the ICU intubated. Patient extubated this morning. Currently has NG tube in place. His pain is controlled. He has been tachycardic. He did receive IV fluid bolus yesterday for hypotension. He does have stool in his ostomy but no flatus. Low-grade temp of 100. WBC is 22 hematoma 10.3 platelets 364. Potassium 5.8 creatinine 1.06 PHYSICAL EXAM: VITAL SIGNS: Reviewed. GENERAL: Well-developed in no acute distress. HEENT: No sclera icterus. Extraocular movements grossly intact. Moist buccal mucosa. Head is atraumatic, normocephalic. ABDOMEN: Soft. Nondistended. Incision is packed dressing does have sanguinous output. Outer dressing clean dry and intact. NEUROLOGIC: Alert and oriented. Cranial nerves II through XII grossly intact. ASSESSMENT: 1. 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 Ileus 3. Crohn's disease with abscess status post ileocolectomy and washout of peritoneal abscess on 05/28/2021 4. Generalized weakness PLAN: -Continue NG tube for decompression -Continue supportive care -Continue IV fluids -Continue pain medication as needed -Incentive spirometer ordered -DVT prophylaxis Lovenox and GI prophylaxis Protonix Physician Reconciliation Machine Operator note has been reviewed by physician. Signing provider agrees with the documented findings, assessment, and plan of care. Objective - Vital Signs Vital signs: Vital Signs Temp 99.6 F 06/22/21 12:00 Pulse 126 H 06/22/21 15:00 Resp 20 06/22/21 15:00 BP 116/77 06/22/21 15:00 Pulse Ox 96 06/22/21 15:00 Intake & Output 06/21/21 06/22/21 06/22/21 18:59 06:59 18:59 Intake Total 1100 4300.000 2948.982 Output Total 910 205 Balance 1100 3390.000 2743.982 Weight 127.006 kg 111.2 kg 111.2 kg Intake: IV 4200 2750 Piperacillin-Tazobactam 3 100 .375 gm In Sodium Chloride 0.9% 100 ml @ 25 mls/hr IVPB Q8HR [facility] Rx# :[id number] Sodium Chloride 0.9% 1, 900 2750 000 ml @ 150 mls/hr IV . Q6H40M [facility] Rx#:[id number] Sodium Chloride 0.9% 1, 1000 000 ml @ 999 mls/hr IV . Q1H1M [facility] Rx#:[id number] Intake, IV Titration 1100 100.000 198.982 Amount Piperacillin-Tazobactam 3 200 .375 gm In Sodium Chloride 0.9% 100 ml @ 25 mls/hr IVPB Q8HR [facility] Rx# :[id number] Sodium Chloride 0.9% 1, 900 000 ml @ 75 mls/hr IV . [id number] [facility] Rx#:[id number] propofoL 1,000 mg In 100.000 198.982 Empty Bag 1 bag @ Titrate IV .Q0M [facility] Rx#: [id number] Output: Drainage 100 30 Abdomen 100 30 Urine 510 175 Estimated Blood Loss 300 Other: # Voids 1 - Labs CBC & Chem 7: 06/22/21 05:49 06/22/21 12:20 Labs: Abnormal Lab Results - Last 24 Hours (Table) 06/21/21 06/21/21 06/21/21 Range/Units 22:20 22:20 23:02 WBC (3.8-10.6) k/uL RBC (4.30-5.90) m/uL Hgb (13.0-17.5) gm/dL Hct (39.0-53.0) % MCHC (31.0-37.0) g/dL RDW (11.5-15.5) % Neutrophils # (Manual) (1.3-7.7) k/uL Lymphocytes # (Manual) (1.0-4.8) k/uL Monocytes # (Manual) (0-1.0) k/uL Metamyelocytes # (Man) (0) k/uL ABG pH 7.33 L (7.35-7.45) ABG pCO2 (35-45) mmHg ABG pO2 306 H (83-108) mmHg ABG HCO3 (21-25) mmol/L ABG O2 Saturation 100.0 H (94-97) % Sodium (137-145) mmol/L Potassium (3.5-5.1) mmol/L Chloride (98-107) mmol/L Carbon Dioxide (22-30) mmol/L BUN (9-20) mg/dL Glucose (74-99) mg/dL POC Glucose (mg/dL) 144 H 138 H (75-99) mg/dL Calcium (8.4-10.2) mg/dL Total Bilirubin (0.2-1.3) mg/dL Total Protein (6.3-8.2) g/dL Albumin (3.5-5.0) g/dL 06/22/21 06/22/21 06/22/21 Range/Units 05:23 05:49 05:49 WBC 22.0 H (3.8-10.6) k/uL RBC 3.45 L (4.30-5.90) m/uL Hgb 10.3 L (13.0-17.5) gm/dL Hct 33.7 L (39.0-53.0) % MCHC 30.5 L (31.0-37.0) g/dL RDW 17.8 H (11.5-15.5) % Neutrophils # (Manual) 19.30 H (1.3-7.7) k/uL Lymphocytes # (Manual) 0.22 L (1.0-4.8) k/uL Monocytes # (Manual) 2.20 H (0-1.0) k/uL Metamyelocytes # (Man) 0.22 H (0) k/uL ABG pH (7.35-7.45) ABG pCO2 29 L (35-45) mmHg ABG pO2 158 H (83-108) mmHg ABG HCO3 18 L (21-25) mmol/L ABG O2 Saturation 98.4 H (94-97) % Sodium 132 L (137-145) mmol/L Potassium 5.9 H (3.5-5.1) mmol/L Chloride (98-107) mmol/L Carbon Dioxide 16 L (22-30) mmol/L BUN 22 H (9-20) mg/dL Glucose 149 H (74-99) mg/dL POC Glucose (mg/dL) (75-99) mg/dL Calcium 7.8 L (8.4-10.2) mg/dL Total Bilirubin 2.3 H (0.2-1.3) mg/dL Total Protein 5.6 L (6.3-8.2) g/dL Albumin 2.5 L (3.5-5.0) g/dL 06/22/21 06/22/21 Range/Units 11:33 12:20 WBC (3.8-10.6) k/uL RBC (4.30-5.90) m/uL Hgb (13.0-17.5) gm/dL Hct (39.0-53.0) % MCHC (31.0-37.0) g/dL RDW (11.5-15.5) % Neutrophils # (Manual) (1.3-7.7) k/uL Lymphocytes # (Manual) (1.0-4.8) k/uL Monocytes # (Manual) (0-1.0) k/uL Metamyelocytes # (Man) (0) k/uL ABG pH (7.35-7.45) ABG pCO2 (35-45) mmHg ABG pO2 (83-108) mmHg ABG HCO3 (21-25) mmol/L ABG O2 Saturation (94-97) % Sodium 134 L (137-145) mmol/L Potassium 5.8 H (3.5-5.1) mmol/L Chloride 109 H (98-107) mmol/L Carbon Dioxide 15 L (22-30) mmol/L BUN 24 H (9-20) mg/dL Glucose 152 H (74-99) mg/dL POC Glucose (mg/dL) 152 H (75-99) mg/dL Calcium 7.7 L (8.4-10.2) mg/dL Total Bilirubin (0.2-1.3) mg/dL Total Protein (6.3-8.2) g/dL Albumin (3.5-5.0) g/dL Microbiology - Last 24 Hours (Table) 06/20/21 13:00 Gram Stain - Final Abdomen Wound Culture - Final Escherichia coli
[2021-06-22 17:41] LABS: Glucose,Whole Blood 139 mg/dL (75-99)
[2021-06-23] MEDS: SODIUM CHLORIDE 0.9% 1,000 ML IV SCH ×4 (03:41→23:26)
[2021-06-23 06:32] LABS: Anisocytosis Slight; Basophils % (A) 0 %; Eosinophils % (A) 0 %; HCT 24.3 % (39.0-53.0); Hypochromasia Marked; Lymphocytes # (A) 0.7 k/uL (1.0-4.8); Lymphocytes % (A) 6 %; MCH 29.9 pg (25.0-35.0); MCHC 30.2 g/dL (31.0-37.0); MCV 98.9 fL (80.0-100.0); Macrocytosis Slight; Monocytes # (A) 0.3 k/uL (0-1.0); Monocytes % (A) 3 %; Neutrophils # (A) 9.7 k/uL (1.3-7.7); Neutrophils % (A) 89 %; Platelet Count 242 k/uL (150-450); RBC 2.46 m/uL (4.30-5.90); RDW 18.5 % (11.5-15.5); WBC 10.9 k/uL (3.8-10.6)
[2021-06-23 06:36] LABS: HGB 7.3 gm/dL (13.0-17.5)
[2021-06-23 06:57] LABS: ALT 21 U/L (4-49); AST 20 U/L (17-59); African American GFR (CKD) >90 (>60 ml/min/1.73 sqM); Albumin 2.2 g/dL (3.5-5.0); Alkaline Phosphatase 99 U/L (38-126); Anion Gap 7 mmol/L; Blood Urea Nitrogen 24 mg/dL (9-20); Calcium 7.6 mg/dL (8.4-10.2); Carbon Dioxide 18 mmol/L (22-30); Chloride 110 mmol/L (98-107); Glucose 115 mg/dL (74-99); Non-African American GFR(CKD) >90 (>60 ml/min/1.73 sqM); Potassium 4.4 mmol/L (3.5-5.1); Sodium 135 mmol/L (137-145); Total Bilirubin 1.9 mg/dL (0.2-1.3)
--- NOTE | 2021-06-23 08:43 | XR ---
EXAMINATION TYPE: XR chest 1V portable DATE OF EXAM: 06/23/2021 COMPARISON: 06/22/2021 INDICATION: Short of breath TECHNIQUE: Single frontal view of the chest is obtained. FINDINGS: The heart size is normal. The pulmonary vasculature is normal. Mild infiltrates in the retrocardiac region. PICC line enters on the right with the tip in the superi or vena cava region. Nasogastric tube transverses the thorax. IMPRESSION: 1. Mild retrocardiac infiltrate. Correlate for atelectasis and pneumonia. 2. Lines and catheters discussed above
[2021-06-23] MEDS: HYDROmorphone 1 MG/ML 1 ML SYRINGE IVP PRN ×4 (09:39→21:24)
[2021-06-23] MEDS: ENOXAPARIN 40 MG/0.4 ML SYRINGE SQ SCH (09:45)
[2021-06-23] MEDS: traMADol 50 MG TAB PO PRN (09:45)
[2021-06-23] MEDS: PIPERACILLIN-TAZOBACTAM 3.375 GM in SODIUM CHLORIDE 0.9% 100 ML IVPB SCH ×3 (09:45→23:25)
[2021-06-23] MEDS: PANTOPRAZOLE 40 MG TABLET PO SCH (09:46)
--- NOTE | 2021-06-23 10:12 | P.PN ---
Subjective Progress Note Date: 06/23/21 Principal diagnosis: abd sepsis This is a 41-year-old white male patient who was recently hospitalized From 05/25/2021 through 06/09/2021 for acute abdomen related to abscess formation and perforation with pneumoperitoneum, and acute COVID-19 related to pneumonia. During his stay patient underwent right colectomy, resection of terminal ileum and end to end anastomosis by Dr. Marsh. He required ICU admission, IV antibiotics, patient was successfully weaned and extubated, she was started on oral feedings, she is doing very well, and following his discharge he went to npatient rehab. On 06/19/2021 patient came into the emergency department with complaints of abdominal pain, purulent drainage from his abdominal incision. Poor appetite. No complaints of nausea or vomiting, no diarrhea or constipation, no fever or chills. Patient was recently discharged from the inpatient rehab and was at home for the past few days. His abdominal and pelvic CT showed dilated small bowel suggestive of severe ileus or distal mechanical small bowel obstruction, previous surgery at the cecum, there was clearing of the pneumoperitoneum, there was improvement in the infiltrates at the lung bases. Patient was taken to surgery on the 06/19/2021 for evidence of perforated viscus and abdominal fascial dehiscence, and underwent exploratory laparotomy, small bowel resection, right colectomy and ileostomy by Dr. Marsh. Patient returned intubated and sedated on mechanical ventilator after surgery to the intensive care unit, he was given a liter bolus in the ICU, she is tachycardic, but not requiring any vasopressor support, low-grade fever this morning, he is currently on assist control mode of ventilation with a rate of 14, tidal volume 600, FiO2 of 40% and PEEP of 8, despite blood gas shows pO2 of 158, pCO2 29, and pH of 7.39 this was done and the above-mentioned event settings. He is currently sedated with Diprivan at 50 mics per kilo per minute, and 0.9 normal saline at a rate of 150 ML per hour, he is urine output is quite dark and scant. She will be given additional fluid boluses. She is currently on Zosyn, his wound cultures are growing gram-negative bacilli. Chest x-ray this morning shows persistent but improving basilar infiltrates and or atelect asis. Today's lab work is been reviewed, showing white blood cell count of 22, hemoglobin of 10.3, sodium is 132, potassium is 5.9, chloride is 107, CO2 is 16, B1 is 22, creatinine is 1.05. His total bilirubin is 2.3, LFTs were within normal limits. His mid abdominal incision is covered with surgical dressing, his right abdominal colostomy has not produced any stool or gas. Bowel sounds are absent. Patient is waking up, not following command, does not appear to be in any acute distress. On 06/23/2021 patient seen in follow-up in intensive care unit, he was successfully weaned and extubated from the mechanical ventilator yesterday, doing very well today, he is currently on 5 L of oxygen pulse ox is 97%, breathing comfortably, he is awake and alert, oriented 3, his postoperative surgical pain is reasonably well controlled. Denies any acute complaints other than being thirsty. Patient has been nothing by mouth. Vital signs have been stable, no fever or chills, today's chest x-ray has been reviewed showing mild retrocardiac infiltrate, correlate for atelectasis and pneumonia. Today's labs have been reviewed, white blood cell count is improved and is down to 10.9, hemoglobin is 7.3 possibly dilutional, platelet count is 242, sodium is 135, potassium is 4.4, chloride is 110, CO2 is 18, BUN is 24, creatinine 0.81. Blood culture has shown no growth, wound culture was positive for E. coli, patient is on Zosyn for antibiotic coverage, his abdominal incision is clean dry and intact, his right abdominal ileostomy starting to produce small amount of liquid stool. Bowel sounds are still very hypoactive, Wheeler catheter is in place, urine output has been in the order of 45-60 mL. Objective - Vital Signs Vital signs: Vital Signs Temp 97.9 F 06/23/21 08:00 Pulse 101 H 06/23/21 08:00 Resp 18 06/23/21 08:00 BP 127/78 06/23/21 08:00 Pulse Ox 97 06/23/21 08:00 Intake & Output 06/22/21 06/23/21 06/23/21 18:59 06:59 18:59 Intake Total 3848.982 1800 150 Output Total 430 550 75 Balance 3418.982 1250 75 Weight 111.2 kg 118 kg Intake: IV 3650 1800 150 Sodium Chloride 0.9% 1, 3650 1800 150 000 ml @ 150 mls/hr IV . Q6H40M [facility] Rx#:[id number] Intake, IV Titration 198.982 Amount propofoL 1,000 mg In 198.982 Empty Bag 1 bag @ Titrate IV .Q0M [facility] Rx#: [id number] Output: Drainage 60 Abdomen 60 Urine 370 550 75 - Exam GENERAL EXAM: Awake and alert and oriented 3, 41-year-old white male, 5 L of oxygen resting comfortably, with a pulse ox of 97% comfortable in no apparent distress. HEAD: Normocephalic/atraumatic. EYES: Normal reaction of pupils, equal size. Conjunctiva pink, sclera white. NOSE: Clear with pink turbinates. THROAT: No erythema or exudates. NECK: No masses, no JVD, no thyroid enlargement, no adenopathy. CHEST: No chest wall deformity. Symmetrical expansion. LUNGS: Equal air entry with no crackles, wheeze, rhonchi or dullness. CVS: Regular rate and rhythm, normal S1 and S2, no gallops, no murmurs, no rubs ABDOMEN: Soft, nontender. No hepatosplenomegaly, hypoactive bowel sounds, no guarding or rigidity. At abdominal incision is clean dry and intact, right abdominal ileostomy in place, with small amount of liquid brown stool, ADRIAN drain in the right abdomen with small amount of serosanguineous output compressed and draining EXTREMITIES: No clubbing, no edema, no cyanosis, 2+ pulses and upper and lower extremities. MUSCULOSKELETAL: Muscle strength and tone normal. SPINE: No scoliosis or deformity SKIN: No rashes CENTRAL NERVOUS SYSTEM: Alert and oriented -3. No focal deficits, tone is normal in all 4 extremities. PSYCHIATRIC: Alert and oriented -3. Appropriate affect. Intact judgment and insight. - Labs CBC & Chem 7: 06/23/21 05:59 06/23/21 05:59 Labs: Abnormal Lab Results - Last 24 Hours (Table) 06/22/21 06/22/21 06/22/21 Range/Units 11:33 12:20 17:40 WBC (3.8-10.6) k/uL RBC (4.30-5.90) m/uL Hgb (13.0-17.5) gm/dL Hct (39.0-53.0) % MCHC (31.0-37.0) g/dL RDW (11.5-15.5) % Neutrophils # (1.3-7.7) k/uL Lymphocytes # (1.0-4.8) k/uL Sodium 134 L (137-145) mmol/L Potassium 5.8 H (3.5-5.1) mmol/L Chloride 109 H (98-107) mmol/L Carbon Dioxide 15 L (22-30) mmol/L BUN 24 H (9-20) mg/dL Glucose 152 H (74-99) mg/dL POC Glucose (mg/dL) 152 H 139 H (75-99) mg/dL Calcium 7.7 L (8.4-10.2) mg/dL Total Bilirubin (0.2-1.3) mg/dL Total Protein (6.3-8.2) g/dL Albumin (3.5-5.0) g/dL 06/23/21 06/23/21 Range/Units 05:59 05:59 WBC 10.9 H (3.8-10.6) k/uL RBC 2.46 L (4.30-5.90) m/uL Hgb 7.3 L D (13.0-17.5) gm/dL Hct 24.3 L (39.0-53.0) % MCHC 30.2 L (31.0-37.0) g/dL RDW 18.5 H (11.5-15.5) % Neutrophils # 9.7 H (1.3-7.7) k/uL Lymphocytes # 0.7 L (1.0-4.8) k/uL Sodium 135 L (137-145) mmol/L Potassium (3.5-5.1) mmol/L Chloride 110 H (98-107) mmol/L Carbon Dioxide 18 L (22-30) mmol/L BUN 24 H (9-20) mg/dL Glucose 115 H (74-99) mg/dL POC Glucose (mg/dL) (75-99) mg/dL Calcium 7.6 L (8.4-10.2) mg/dL Total Bilirubin 1.9 H (0.2-1.3) mg/dL Total Protein 5.0 L (6.3-8.2) g/dL Albumin 2.2 L (3.5-5.0) g/dL Microbiology - Last 24 Hours (Table) 06/22/21 05:49 Blood Culture - Preliminary Blood No Growth after 24 hours 06/20/21 13:00 Gram Stain - Final Abdomen Wound Culture - Final Escherichia coli Assessment and Plan Plan: Assessment: #1. Abdominal fascial dehiscence, perforated small bowel, intra-abdominal abscess, status post exploratory laparotomy, small bowel resection, right c olectomy and ileostomy on 06/21/2021. #2. Routine postoperative ventilator management. Patient was successfully weaned and extubated on 06/22/2021, tolerating extubation well so far. #3. Recent history of ileal colectomy and washout of peritoneal abscess on 05/28/2021 #4. Recent COVID-19 related pneumonia #5. Crohn's disease with abscess status post ileocolectomy and peritoneal abscess washout #6. Generalized weakness #7. Ileus #8. Leukocytosis, related to intra-abdominal abscess, patient is covered with Zosyn, wound culture was positive for E. coli, leukocytosis is currently im proving #9. Previous episode of A. fib with RVR during previous admission, currently in sinus mechanism Plan: Patient is tolerating extubation well so far Provided incentive spirometer, encourage deep breathing and coughing Continue weaning FiO2 to maintain O2 saturations at 90-92% Continue antibiotics and nebulized bronchodilators Cut back IV fluids down to 100 ML per hour Maintain pain control Increase activity as tolerated Consult physical therapy Dietary recommendation per surgery I performed a history & physical examination of the patient and discussed their management with my nurse practitioner, Ирина Woods. I reviewed the nurse practitioner's note and agree with the documented findings and plan of care. Lung sounds are positive for diminished breath sounds throughout the lung moran. The findings and the impression was discussed with the patient. I attest to the documentation by the nurse practitioner. Time with Patient: Less than 30
--- NOTE | 2021-06-23 12:35 | P.PN ---
Subjective 41-year-old male with history of Crohn's disease and abscess had a ileocolectomy on 05/28/2021 subsequently discharged to [facility] patient rehabitation patient won't cultures during previous hospital physicians showed E. coli and Keke patient to complete the treatment with Augmentin and Diflucan. I did evaluate this patient at [facility] rehabilitation at that time I obtain the cultures as there was concern about new infection in the surgical site area will obtain those cultures, infectious disease evaluated the patient there. Patient was subsequently discharged. came in with the increase the pain and infection of the surgical site area now. Patient had a CT of the abdomen which is concerning for ileus although patient was having normal bowel movements. Patient is hyponatremic. Patient will sugars are highly elevated lower obtain hemoglobin and patient was started on insulin regimen along with sliding scale. 06/21/2021 Patient was evaluated by general surgery and the infectious disease. There is mild area of redness, infectious disease doesn't believe patient has significant superficial infection there is no evidence of abscesses on the CT either although patient may need only back as per infectious disease cultures are pending patient is being can urine Zosyn. 06/22/2021 Patient is found to have pneumoperitoneum later in the day and patient underwent emergent laparotomy. With a small bowel resection and right colectomy and ileostomy. Patient is presently intubated on mechanical ventilator with the assist-control ventilation with respiratory rate of 14 and tidal volume of 6 and FiO2 of 40% PEEP of 8 patient is on propofol for sedation white blood cell count went up to 22,000 from normal white count, colostomy is empty at this time. 06/23/2020 Patient is extubated today patient is presently on 5 L of oxygen is alert awake alert oriented 3 patient White blood cell count has come down. And presently 10,900. Patient has a Wheeler catheter urine output around 50-60 mL per hour. Patient is off pressor support. Constitutional: Denied any fatigue denied any fever. Cardio vascular: denied any chest pain, palpitations Gastrointestinal denied any nausea vomiting Pulmonary: Denied any shortness of breath cough Neurologic denied any new focal deficits All inpatient medications were reviewed and appropriate changes in these medications as dictated in the interval history and assessment and plan. PHYSICAL EXAMINATION: GENERAL: Alert oriented 3, on 3 L of oxygen HEENT: Pupils are round and equally reacting to light. EOMI. No scleral icterus. No conjunctival pallor. Normocephalic, atraumatic. No pharyngeal erythema. No thyromegaly. CARDIOVASCULAR: S1 and S2 present. No murmurs, rubs, or gallops. PULMONARY: Chest is clear to auscultation, no wheezing or crackles. ABDOMEN: Soft, nontender, nondistended, normoactive bowel sounds. No palpable organomegaly. MUSCULOSKELETAL: No joint swelling or deformity. EXTREMITIES: No cyanosis, clubbing, or pedal edema. NEUROLOGICAL: Sedated at this time SKIN: Postsurgical packing Assessment and plan -Bowel perforation had ileus on admission. Status post laparotomy and small bowel resection, right colectomy ileostomy . Patient is presently on Zosyn -Acute respiratory failure secondary to sepsis post laparotomy. Patient has an NG tube with intermittent suction patient the is presently extubated and extubated on 06/23/2021 -History of Crohn's disease status post redo colectomy a few weeks ago -Leukocytosis secondary to sepsis, bowel perforation wound cultures are showing gram-negative bacilli this is from the surgical wound from his previous surgery improving patient is presently on Zosyn won't cultures are showing E. coli DVT prophylaxis: Lovenox Objective - Vital Signs Vital signs: Vital Signs Temp 97.9 F 06/23/21 08:00 Pulse 97 06/23/21 10:00 Resp 15 06/23/21 10:00 BP 133/83 06/23/21 10:00 Pulse Ox 97 06/23/21 10:00 Intake & Output 06/22/21 06/23/21 06/23/21 18:59 06:59 18:59 Intake Total 3848.982 1800 350 Output Total 430 550 195 Balance 3418.982 1250 155 Weight 111.2 kg 118 kg Intake: IV 3650 1800 350 Sodium Chloride 0.9% 1, 3650 1800 350 000 ml @ 100 mls/hr IV . Q10H [facility] Rx#:[id number] Intake, IV Titration 198.982 Amount propofoL 1,000 mg In 198.982 Empty Bag 1 bag @ Titrate IV .Q0M [facility] Rx#: [id number] Output: Drainage 60 Abdomen 60 Urine 370 550 195 - Labs CBC & Chem 7: 06/23/21 05:59 06/23/21 05:59 Labs: Abnormal Lab Results - Last 24 Hours (Table) 06/22/21 06/22/21 06/23/21 Range/Units 12:20 17:40 05:59 WBC (3.8-10.6) k/uL RBC (4.30-5.90) m/uL Hgb (13.0-17.5) gm/dL Hct (39.0-53.0) % MCHC (31.0-37.0) g/dL RDW (11.5-15.5) % Neutrophils # (1.3-7.7) k/uL Lymphocytes # (1.0-4.8) k/uL Sodium 134 L 135 L (137-145) mmol/L Potassium 5.8 H (3.5-5.1) mmol/L Chloride 109 H 110 H (98-107) mmol/L Carbon Dioxide 15 L 18 L (22-30) mmol/L BUN 24 H 24 H (9-20) mg/dL Glucose 152 H 115 H (74-99) mg/dL POC Glucose (mg/dL) 139 H (75-99) mg/dL Calcium 7.7 L 7.6 L (8.4-10.2) mg/dL Total Bilirubin 1.9 H (0.2-1.3) mg/dL Total Protein 5.0 L (6.3-8.2) g/dL Albumin 2.2 L (3.5-5.0) g/dL 06/23/21 Range/Units 05:59 WBC 10.9 H (3.8-10.6) k/uL RBC 2.46 L (4.30-5.90) m/uL Hgb 7.3 L D (13.0-17.5) gm/dL Hct 24.3 L (39.0-53.0) % MCHC 30.2 L (31.0-37.0) g/dL RDW 18.5 H (11.5-15.5) % Neutrophils # 9.7 H (1.3-7.7) k/uL Lymphocytes # 0.7 L (1.0-4.8) k/uL Sodium (137-145) mmol/L Potassium (3.5-5.1) mmol/L Chloride (98-107) mmol/L Carbon Dioxide (22-30) mmol/L BUN (9-20) mg/dL Glucose (74-99) mg/dL POC Glucose (mg/dL) (75-99) mg/dL Calcium (8.4-10.2) mg/dL Total Bilirubin (0.2-1.3) mg/dL Total Protein (6.3-8.2) g/dL Albumin (3.5-5.0) g/dL Microbiology - Last 24 Hours (Table) 06/22/21 05:49 Blood Culture - Preliminary Blood No Growth after 24 hours 06/20/21 13:00 Gram Stain - Final Abdomen Wound Culture - Final Escherichia coli
--- NOTE | 2021-06-23 13:00 | CDI ---
Documentation Clarification Form Date: 06/23/2021 12:43:03 PM From: Abiola Arora CCS, CCDS Admit Date: 06/20/2021 12:12:00 AM Patient Name: Mc Salcedo Visit Number: [id number] Discharge Date: ATTENTION: The Clinical Documentation Specialists (CDI) and [facility] Coding Staff appreciate your assistance in clarifying documentation. Please respond to the clarification below the line at the bottom and electronically sign. The CDI & [facility] Coding staff will review the response and follow-up if needed. Please note: Queries are made part of the Legal Health Record. If you have any questions, please contact the author of this message via ITS. Dr. Marco A Marsh: Hypotension is documented in the 06/22 General Surgeon's Progress Note status post-surgery on 06/21: Exploratory Laparotomy, Small Bowel Resection, Right Colectomy, Ileostomy; without further specificity. Per the 06/22 General Surgeon's Progress Note: He did receive IV fluid bolus yesterday for Hypotension. Additional clarification of the diagnosis of Hypotension postoperatively is requested. History/Risk Factors per the General Surgeon's History & Physical: Recently hospitalized with Crohn's disease with Abscess and is status post Ileocolectomy & Washout of Peritoneal Abscess on 05/28/21, discharged to IP rehab, recently discharged to home. Per the Medical Management H/P: Surgery as noted, Right Inguinal Hernia Repair and Former Smoker. Clinical Indicators: Presented to the ED on 06/19 via EMS with Abdominal Pain, 3 weeks postop status post Ileocolectomy & Washout of Peritoneal Abscess. Presents with increased purulent drainage from his abdominal incision and abdominal pain. Has minimal appetite. Admit with Incisional Infection, Ileus and Weakness. 06/19 VS: T 97.8, P 105 - 82, R 18, BP 137/91, 151/74, 145/77; PO 96 RA 06/22 VS: T 99.7, P 128, 115; R 9, 20, BP 94/72, 91/68, PO 97 on vent postoperatively 06/22 BP (status post IV fluid bolus): 114/78, 124/63, 116/77, 130/78 06/21 OR Diagnosis: Abdominal Fascial Dehiscence, Perforated Small Bowel, Intra- Abdominal Abscess Procedure: Exploratory Laparotomy, Small Bowel Resection, Right colectomy, Ileostomy. Treatment 06/22: IV fluid bolus: Na Cl 1,000 mls @ 999 mls/hr q1H, Na Cl 2,000 mls @ 999 mls/hr q2H What relationship, if any, exists between the diagnosis of [insert dx] and the procedure: [ ] Hypotension is a complication of surgical procedure [ ] Hypotension is an expected outcome of the surgical procedure [ xx ] Hypotension is related to patients co-morbid condition(s), please specify: and is not a complication of the procedure [ ] Other, please specify: [ ] Unable to determine (Template Last Revised: July 2020) MTDD
--- NOTE | 2021-06-23 13:18 | CDI ---
Documentation Clarification Form Date: 06/23/2021 01:08:00 PM From: Abiola Arora CCS, CCDS Admit Date: 06/20/2021 12:12:00 AM Patient Name: Mc Salcedo Visit Number: [id number] Discharge Date: ATTENTION: The Clinical Documentation Specialists (CDI) and [facility] Coding Staff appreciate your assistance in clarifying documentation. Please respond to the clarification below the line at the bottom and electronically sign. The CDI & [facility] Coding staff will review the response and follow-up if needed. Please note: Queries are made part of the Legal Health Record. If you have any questions, please contact the author of this message via ITS. Dr. Anupam Nguyen: Abdominal Sepsis is documented in the 06/22 Pulmonary Critical Care Consult and the 06/23 Progress Note. The patient is admitted with Abdominal fascial dehiscence, Perforated small bowel, Intra-abdominal abscess status post exploratory laparotomy, Small bowel resection and Right colectomy and Ileostomy on 06/21. Recent Ileocolectomy and Washout of Peritoneal Abscess on 05/28/21 with history of Crohn's Disease. Additional clarification of the diagnosis of Sepsis is requested. History/Risk Factors per the General Surgeon's History & Physical: Recently hospitalized with Crohn's disease with Abscess and is status post Ileocolectomy & Washout of Peritoneal Abscess on 05/28/21, discharged to IP rehab, recently discharged to home. Per the Medical Management H/P: Surgery as noted, Right Inguinal Hernia Repair and Former Smoker. Clinical Indicators: Presented to the ED on 06/19 via EMS with Abdominal Pain, 3 weeks postop status post Ileocolectomy & Washout of Peritoneal Abscess. Presents with increased purulent drainage from his abdominal incision and abdominal pain. Has minimal appetite. Admit with Incisional Infection, Ileus and Weakness. 06/19 VS: T 97.8, P 105 - 82, R 18, BP 137/91, 151/74, 145/77; PO 96 RA 06/22 VS: T 99.7, P 128, 115; R 9, 20, BP 94/72, 91/68, PO 97 on vent postoperatively 06/22 BP (status post IV fluid bolus): 114/78, 124/63, 116/77, 130/78 06/21 OR Diagnosis: Abdominal Fascial Dehiscence, Perforated Small Bowel, Intra- Abdominal Abscess Procedure: Exploratory Laparotomy, Small Bowel Resection, Right colectomy, Ileostomy. Treatment 06/19: IV Na Cl 1,000 mls @ 999 mls/hr q1H, IV Zosyn 100 mls @ 200 mls/hr x1. 06/20: IV zosyn 100 mls @ 25 mls/hr q8H. 06/21: IV Lactated Ringers x2, IV Dilaudid 1 mg q1H, 06/22: IV Propofol, IV fluid bolus: Na Cl 1,000 mls @ 999 mls/hr q1H, Na Cl 2,000 mls @ 999 mls/hr q2H, Extubated. Please clarify if Sepsis was Present on Admission: [ ] Y = Yes, the condition was present at the time of the order for inpatient admission. [ ] N = No, the condition was not present at the time of the order for inpatient admission. [ ] W = Clinically undetermined if the condition was present at the time of the order for inpatient admission. (Template Last Revised: July 2020) Yes, present on admission. MTDD
--- NOTE | 2021-06-23 13:57 | P.PN ---
Subjective Progress Note Date: 06/23/21 CHIEF COMPLAINT: Drainage from abdominal incision HISTORY OF PRESENT ILLNESS: Patient is status post exploratory laparotomy, small bowel resection, right colectomy with ileostomy for abdominal fascial dehi scence, perforated small bowel and intra-abdominal abscess. Postop day #2. Patient remains in the ICU. He was extubated yesterday. His pain is controlled. He did have nausea and Zofran was ordered. Patient did have some's stool and small amount of liquidy serosanguineous fluid from the ileostomy. No air present in the bed. Has NG tube in place with 350 bilious output. He's had some mild tachycardia. Afebrile. Hemoglobin did drop from 10.3-7.3. WBC 22 down to 10.9. Patient is currently nothing by mouth. ADRIAN drain 25 mL serosanguineous output this morning. Patient seen and examined with Dr. steen PHYSICAL EXAM: VITAL SIGNS: Reviewed. GENERAL: Well-developed in no acute distress. HEENT: No sclera icterus. Extraocular movements grossly intact. Moist buccal mucosa. Head is atraumatic, normocephalic. ABDOMEN: Soft. Nondistended. Incision is packed dressing does have sanguinous output. Outer dressing clean dry and intact. NEUROLOGIC: Alert and oriented. Cranial nerves II through XII grossly intact. ASSESSMENT: 1. 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 Ileus 3. Crohn's disease with abscess status post ileocolectomy and washout of peritoneal abscess on 05/28/2021 4. Generalized weakness 5. Anemia likely dilutional from IV fluids PLAN: -Discontinue NG tube -Keep patient nothing by mouth except for ice chips -Consult dietitian to initiate TPN for nutrition support -Repeat hemoglobin in a.m. -Encouraged patient to increase activity -Continue wet-to-dry dressings at incision -Continue supportive care -Continue IV fluids -Continue antibiotics -Continue pain medication as needed -Incentive spirometer ordered -DVT prophylaxis Lovenox and GI prophylaxis Protonix Physician Sugar Trucker note has been reviewed by physician. Signing provider agrees with the documented findings, assessment, and plan of care. Objective - Vital Signs Vital signs: Vital Signs Temp 97.9 F 06/23/21 08:00 Pulse 97 06/23/21 10:00 Resp 15 06/23/21 10:00 BP 133/83 06/23/21 10:00 Pulse Ox 97 06/23/21 10:00 Intake & Output 06/22/21 06/23/21 06/23/21 18:59 06:59 18:59 Intake Total 3848.982 1800 350 Output Total 430 550 195 Balance 3418.982 1250 155 Weight 111.2 kg 118 kg 118 kg Intake: IV 3650 1800 350 Sodium Chloride 0.9% 1, 3650 1800 350 000 ml @ 100 mls/hr IV . Q10H [facility] Rx#:[id number] Intake, IV Titration 198.982 Amount propofoL 1,000 mg In 198.982 Empty Bag 1 bag @ Titrate IV .Q0M [facility] Rx#: [id number] Output: Drainage 60 Abdomen 60 Urine 370 550 195 - Labs CBC & Chem 7: 06/23/21 05:59 06/23/21 05:59 Labs: Abnormal Lab Results - Last 24 Hours (Table) 06/22/21 06/23/21 06/23/21 Range/Units 17:40 05:59 05:59 WBC 10.9 H (3.8-10.6) k/uL RBC 2.46 L (4.30-5.90) m/uL Hgb 7.3 L D (13.0-17.5) gm/dL Hct 24.3 L (39.0-53.0) % MCHC 30.2 L (31.0-37.0) g/dL RDW 18.5 H (11.5-15.5) % Neutrophils # 9.7 H (1.3-7.7) k/uL Lymphocytes # 0.7 L (1.0-4.8) k/uL Sodium 135 L (137-145) mmol/L Chloride 110 H (98-107) mmol/L Carbon Dioxide 18 L (22-30) mmol/L BUN 24 H (9-20) mg/dL Glucose 115 H (74-99) mg/dL POC Glucose (mg/dL) 139 H (75-99) mg/dL Calcium 7.6 L (8.4-10.2) mg/dL Total Bilirubin 1.9 H (0.2-1.3) mg/dL Total Protein 5.0 L (6.3-8.2) g/dL Albumin 2.2 L (3.5-5.0) g/dL Microbiology - Last 24 Hours (Table) 06/22/21 05:49 Blood Culture - Preliminary Blood No Growth after 24 hours 06/20/21 13:00 Gram Stain - Final Abdomen Wound Culture - Final Escherichia coli
[2021-06-23 16:56] LABS: Magnesium 1.8 mg/dL (1.6-2.3); Phosphorus 3.8 mg/dL (2.5-4.5)
[2021-06-23] MEDS ORDERED: MVI, ADULT NO.4 WITH VIT K 10 ML, TRACE (CONC-1ML/DOSE) 1 ML in AMINO ACID 5%-D20W+LYTE... IV SCH ×3 (18:00)
--- NOTE | 2021-06-23 21:40 | P.PN ---
Subjective Progress Note Date: 06/22/21 Principal diagnosis: Abdominal wound infection Patient is 41 year male with a past medical history significant for Crohn's disease in this patient who recently did have a laparotomy for abdominal abscess, no readmitted to the hospital with abdominal pain and concern for abdominal wound dehiscence and possible infection. Patient was taken to the OR 06/21/2021 patient is status post laparotomy right colectomy and ileostomy and drainage of abdominal abscess On today's evaluation that is 06/22/2021, the patient is afebrile, the patient abdominal pain is currently controlled, the patient did have NG and denies nausea no vomiting no chest pain shortness of breath or cough and no diarrhea Objective - Vital Signs Vital signs: Vital Signs Temp 99.6 F 06/22/21 12:00 Pulse 126 H 06/22/21 15:00 Resp 20 06/22/21 15:00 BP 116/77 06/22/21 15:00 Pulse Ox 96 06/22/21 15:00 Intake & Output 06/21/21 06/22/21 06/22/21 18:59 06:59 18:59 Intake Total 1100 4300.000 2948.982 Output Total 910 205 Balance 1100 3390.000 2743.982 Weight 127.006 kg 111.2 kg 111.2 kg Intake: IV 4200 2750 Piperacillin-Tazobactam 3 100 .375 gm In Sodium Chloride 0.9% 100 ml @ 25 mls/hr IVPB Q8HR [facility] Rx# :[id number] Sodium Chloride 0.9% 1, 900 2750 000 ml @ 150 mls/hr IV . Q6H40M [facility] Rx#:[id number] Sodium Chloride 0.9% 1, 1000 000 ml @ 999 mls/hr IV . Q1H1M [facility] Rx#:[id number] Intake, IV Titration 1100 100.000 198.982 Amount Piperacillin-Tazobactam 3 200 .375 gm In Sodium Chloride 0.9% 100 ml @ 25 mls/hr IVPB Q8HR [facility] Rx# :[id number] Sodium Chloride 0.9% 1, 900 000 ml @ 75 mls/hr IV . [id number] [facility] Rx#:[id number] propofoL 1,000 mg In 100.000 198.982 Empty Bag 1 bag @ Titrate IV .Q0M [facility] Rx#: [id number] Output: Drainage 100 30 Abdomen 100 30 Urine 510 175 Estimated Blood Loss 300 Other: # Voids 1 - Exam GENERAL DESCRIPTION:[ Patient is awake and alert in no distress] HEENT: [Oral mucosa is dry and no pharyngeal erythema] RESPIRATORY SYSTEM: [Unlabored breathing clear to auscultation] CARDIA VASCULAR SYSTEM: [S1-S2 regular rate and rhythm no murmur] GI: [Abdominal soft midline incision is currently dressed EXTREMITIES: [No edema feet] - Labs CBC & Chem 7: 06/23/21 05:59 06/23/21 05:59 Labs: Abnormal Lab Results - Last 24 Hours (Table) 06/21/21 06/21/21 06/21/21 Range/Units 22:20 22:20 23:02 WBC (3.8-10.6) k/uL RBC (4.30-5.90) m/uL Hgb (13.0-17.5) gm/dL Hct (39.0-53.0) % MCHC (31.0-37.0) g/dL RDW (11.5-15.5) % Neutrophils # (Manual) (1.3-7.7) k/uL Lymphocytes # (Manual) (1.0-4.8) k/uL Monocytes # (Manual) (0-1.0) k/uL Metamyelocytes # (Man) (0) k/uL ABG pH 7.33 L (7.35-7.45) ABG pCO2 (35-45) mmHg ABG pO2 306 H (83-108) mmHg ABG HCO3 (21-25) mmol/L ABG O2 Saturation 100.0 H (94-97) % Sodium (137-145) mmol/L Potassium (3.5-5.1) mmol/L Chloride (98-107) mmol/L Carbon Dioxide (22-30) mmol/L BUN (9-20) mg/dL Glucose (74-99) mg/dL POC Glucose (mg/dL) 144 H 138 H (75-99) mg/dL Calcium (8.4-10.2) mg/dL Total Bilirubin (0.2-1.3) mg/dL Total Protein (6.3-8.2) g/dL Albumin (3.5-5.0) g/dL 06/22/21 06/22/21 06/22/21 Range/Units 05:23 05:49 05:49 WBC 22.0 H (3.8-10.6) k/uL RBC 3.45 L (4.30-5.90) m/uL Hgb 10.3 L (13.0-17.5) gm/dL Hct 33.7 L (39.0-53.0) % MCHC 30.5 L (31.0-37.0) g/dL RDW 17.8 H (11.5-15.5) % Neutrophils # (Manual) 19.30 H (1.3-7.7) k/uL Lymphocytes # (Manual) 0.22 L (1.0-4.8) k/uL Monocytes # (Manual) 2.20 H (0-1.0) k/uL Metamyelocytes # (Man) 0.22 H (0) k/uL ABG pH (7.35-7.45) ABG pCO2 29 L (35-45) mmHg ABG pO2 158 H (83-108) mmHg ABG HCO3 18 L (21-25) mmol/L ABG O2 Saturation 98.4 H (94-97) % Sodium 132 L (137-145) mmol/L Potassium 5.9 H (3.5-5.1) mmol/L Chloride (98-107) mmol/L Carbon Dioxide 16 L (22-30) mmol/L BUN 22 H (9-20) mg/dL Glucose 149 H (74-99) mg/dL POC Glucose (mg/dL) (75-99) mg/dL Calcium 7.8 L (8.4-10.2) mg/dL Total Bilirubin 2.3 H (0.2-1.3) mg/dL Total Protein 5.6 L (6.3-8.2) g/dL Albumin 2.5 L (3.5-5.0) g/dL 06/22/21 06/22/21 Range/Units 11:33 12:20 WBC (3.8-10.6) k/uL RBC (4.30-5.90) m/uL Hgb (13.0-17.5) gm/dL Hct (39.0-53.0) % MCHC (31.0-37.0) g/dL RDW (11.5-15.5) % Neutrophils # (Manual) (1.3-7.7) k/uL Lymphocytes # (Manual) (1.0-4.8) k/uL Monocytes # (Manual) (0-1.0) k/uL Metamyelocytes # (Man) (0) k/uL ABG pH (7.35-7.45) ABG pCO2 (35-45) mmHg ABG pO2 (83-108) mmHg ABG HCO3 (21-25) mmol/L ABG O2 Saturation (94-97) % Sodium 134 L (137-145) mmol/L Potassium 5.8 H (3.5-5.1) mmol/L Chloride 109 H (98-107) mmol/L Carbon Dioxide 15 L (22-30) mmol/L BUN 24 H (9-20) mg/dL Glucose 152 H (74-99) mg/dL POC Glucose (mg/dL) 152 H (75-99) mg/dL Calcium 7.7 L (8.4-10.2) mg/dL Total Bilirubin (0.2-1.3) mg/dL Total Protein (6.3-8.2) g/dL Albumin (3.5-5.0) g/dL Microbiology - Last 24 Hours (Table) 06/20/21 13:00 Gram Stain - Final Abdomen Wound Culture - Final Escherichia coli Assessment and Plan (1) Incisional infection Current Visit: Yes Status: Acute Code(s): T81.49XA - INFECTION FOLLOWING A PROCEDURE, OTHER SURGICAL SITE, INIT SNOMED Code(s): 73015816 Plan: 1-patient admitted to the hospital with abdominal pain with abdominal incision dehiscence and concern for possible deep infection, and this patient who is st atus post exploratory laparotomy status post right colectomy and small bowel resection ileostomy and drainage of the abscess, no OR cultures were done superficial abdominal cultures showed E. coli and anaerobes and the patient is covered with Zosyn Time with Patient: Less than 30
--- NOTE | 2021-06-23 21:41 | P.PN ---
Subjective Progress Note Date: 06/23/21 Principal diagnosis: Abdominal wound infection Patient is 41 year male with a past medical history significant for Crohn's disease in this patient who recently did have a laparotomy for abdominal abscess, no readmitted to the hospital with abdominal pain and concern for abdominal wound dehiscence and possible infection. Patient was taken to the OR 06/21/2021 patient is status post laparotomy right colectomy and ileostomy and drainage of abdominal abscess On today's evaluation that is 06/23/2021, the patient remains to be afebrile, the patient is hemodynamically stable not requiring any pressor support, the patient abdominal pain is currently controlled, the patient did have NG and denies nausea no vomiting no chest pain shortness of breath or cough and no willard rrhea Objective - Vital Signs Vital signs: Vital Signs Temp 97.9 F 06/23/21 16:00 Pulse 93 06/23/21 20:30 Resp 12 06/23/21 20:30 BP 131/74 06/23/21 20:30 Pulse Ox 96 06/23/21 20:30 Intake & Output 06/23/21 06/23/21 06/24/21 06:59 18:59 06:59 Intake Total 1800 1280 300 Output Total 550 985 350 Balance 1250 295 -50 Weight 118 kg 118 kg Intake: IV 1800 1280 300 Piperacillin-Tazobactam 3 100 .375 gm In Sodium Chloride 0.9% 100 ml @ 25 mls/hr IVPB Q8HR [facility] Rx# :[id number] Sodium Chloride 0.9% 1, 1800 1150 210 000 ml @ 100 mls/hr IV . Q10H [facility] Rx#:[id number] TPN 30 90 Output: Drainage 20 Abdomen 20 Urine 550 865 350 Stool 100 - Exam GENERAL DESCRIPTION:[ Patient is awake and alert in no distress] HEENT: [Oral mucosa is dry and no pharyngeal erythema] RESPIRATORY SYSTEM: [Unlabored breathing clear to auscultation] CARDIA VASCULAR SYSTEM: [S1-S2 regular rate and rhythm no murmur] GI: [Abdominal soft midline incision is currently dressed EXTREMITIES: [No edema feet] - Labs CBC & Chem 7: 06/23/21 05:59 06/23/21 05:59 Labs: Abnormal Lab Results - Last 24 Hours (Table) 06/23/21 06/23/21 Range/Units 05:59 05:59 WBC 10.9 H (3.8-10.6) k/uL RBC 2.46 L (4.30-5.90) m/uL Hgb 7.3 L D (13.0-17.5) gm/dL Hct 24.3 L (39.0-53.0) % MCHC 30.2 L (31.0-37.0) g/dL RDW 18.5 H (11.5-15.5) % Neutrophils # 9.7 H (1.3-7.7) k/uL Lymphocytes # 0.7 L (1.0-4.8) k/uL Sodium 135 L (137-145) mmol/L Chloride 110 H (98-107) mmol/L Carbon Dioxide 18 L (22-30) mmol/L BUN 24 H (9-20) mg/dL Glucose 115 H (74-99) mg/dL Calcium 7.6 L (8.4-10.2) mg/dL Total Bilirubin 1.9 H (0.2-1.3) mg/dL Total Protein 5.0 L (6.3-8.2) g/dL Albumin 2.2 L (3.5-5.0) g/dL Microbiology - Last 24 Hours (Table) 06/20/21 13:01 Anaerobic Culture - Final Abdomen Anaerobic Gm Negative Bacilli Anaerobic Gm Negative Bacilli#2 06/22/21 05:49 Blood Culture - Preliminary Blood No Growth after 24 hours Assessment and Plan (1) Incisional infection Current Visit: Yes Status: Acute Code(s): T81.49XA - INFECTION FOLLOWING A PROCEDURE, OTHER SURGICAL SITE, INIT SNOMED Code(s): 38739618 Plan: 1-patient admitted to the hospital with abdominal pain with abdominal incision dehiscence and concern for possible deep infection, and this patient who is status post exploratory laparotomy status post right colectomy and small bowel resection ileostomy and drainage of the abscess, no OR cultures were done super ficial abdominal cultures showed E. coli and anaerobes, the patient will continue with the Zosyn while monitoring his clinical course closely Time with Patient: Less than 30
[2021-06-23 23:08] LABS: Glucose,Whole Blood 119 mg/dL (75-99)
[2021-06-23] MEDS: INSULIN ASPART (NovoLOG) 100 UNIT/ML VIAL SQ SCH (23:26)
[2021-06-24] MEDS: HYDROmorphone 1 MG/ML 1 ML SYRINGE IVP PRN ×7 (02:03→23:04)
[2021-06-24] MEDS: PANTOPRAZOLE 40 MG TABLET PO SCH ×2 (05:36→13:25)
[2021-06-24 05:51] LABS: Glucose,Whole Blood 121 mg/dL (75-99)
[2021-06-24] MEDS: INSULIN ASPART (NovoLOG) 100 UNIT/ML VIAL SQ SCH ×3 (06:23→18:09)
[2021-06-24 06:33] LABS: Anisocytosis Slight; Basophils % (A) 0 %; Eosinophils % (A) 1 %; HCT 20.3 % (39.0-53.0); Hypochromasia Marked; Lymphocytes # (A) 0.5 k/uL (1.0-4.8); Lymphocytes % (A) 10 %; MCH 30.5 pg (25.0-35.0); MCV 101.9 fL (80.0-100.0); Macrocytosis Moderate; Mean Platelet Volume 7.6; Monocytes # (A) 0.3 k/uL (0-1.0); Monocytes % (A) 5 %; Neutrophils # (A) 4.1 k/uL (1.3-7.7); Neutrophils % (A) 82 %; Platelet Count 211 k/uL (150-450); WBC 5.1 k/uL (3.8-10.6)
[2021-06-24 06:47] LABS: HGB 6.1 gm/dL (13.0-17.5)
[2021-06-24 06:49] LABS: ALT 19 U/L (4-49); AST 23 U/L (17-59); African American GFR (CKD) >90 (>60 ml/min/1.73 sqM); Albumin 2.1 g/dL (3.5-5.0); Alkaline Phosphatase 92 U/L (38-126); Anion Gap 6 mmol/L; Blood Urea Nitrogen 21 mg/dL (9-20); Calcium 7.7 mg/dL (8.4-10.2); Carbon Dioxide 20 mmol/L (22-30); Chloride 112 mmol/L (98-107); Glucose 113 mg/dL (74-99); Non-African American GFR(CKD) >90 (>60 ml/min/1.73 sqM); Potassium 3.8 mmol/L (3.5-5.1); Sodium 138 mmol/L (137-145); Total Bilirubin 1.5 mg/dL (0.2-1.3); Total Protein 4.8 g/dL (6.3-8.2)
[2021-06-24 07:22] LABS: Magnesium 2.1 mg/dL (1.6-2.3); Phosphorus 2.9 mg/dL (2.5-4.5)
[2021-06-24] MEDS ORDERED: Potassium Replacement Protocol 1 EACH MISC MISCELLANE PRN (07:30)
--- NOTE | 2021-06-24 08:01 | XR ---
EXAMINATION TYPE: XR chest 1V portable DATE OF EXAM: 06/24/2021 COMPARISON: 06/23/2021 INDICATION: Short of breath TECHNIQUE: Single frontal view of the chest is obtained. FINDINGS: The heart size is normal. The pulmonary vasculature is normal. Minimal infiltrate is above the right diaphragm. Correlate for atelectasis. Some mild right suprahila r infiltrate may be present. Right-sided PICC line is present with the tip in the superior vena cava region. Retrocardiac consolidation may be present. Correlate for pneumonia. IMPRESSION: 1. Mild right infiltrates and suprahilar and right lower lobe region. Retrocardiac infiltrate may be present. Follow-up is recommended.
--- NOTE | 2021-06-24 08:46 | CDI ---
Documentation Clarification Form Date: 06/24/2021 08:33:19 AM From: Abiola AroraANTHONY garcia, CCDS Admit Date: 06/20/2021 12:12:00 AM Patient Name: Mc Salcedo Visit Number: [id number] Discharge Date: ATTENTION: The Clinical Documentation Specialists (CDI) and [facility] Coding Staff appreciate your assistance in clarifying documentation. Please respond to the clarification below the line at the bottom and electronically sign. The CDI & [facility] Coding staff will review the response and follow-up if needed. Please note: Queries are made part of the Legal Health Record. If you have any questions, please contact the author of this message via ITS. Dr. Gomez Whitney: Acute Respiratory Failure secondary to Sepsis post Laparotomy is documented in the 06/22 & 06/23 Medical Management progress Notes without further specificity. Based on this information and the findings below, is there an additional diagnosis that is clinically appropriate for this patient? History/Risk Factors per the 06/20 History & Physical: Crohn's Disease, hospitalized on 05/28/21 with Abscess and status post Ileocolectomy and Washout of Peritoneal Abscess; Hernia Repair, Former smoker. Clinical Indicators: Presented to the ED on 06/19 with Abdominal pain x3 weeks status post Ileocolectomy with Washout of Peritoneal Abscess on 05/28/21, Abscess was felt to be the result of Crohn's Disease. Patient has purulent drainage from his abdominal incision & abdominal pain. Admit with Incisional Infection, Ileus and Weakness. 06/20 VS: T 97.8, P 105, 88; R 18, BP 137/92, PO 96 RA, BMI: 38.7 06/21 VS: T 98.4, P 149, R 14, BP 142/96, PO 90 on vent from OR 06/21 Blood Gas: ABG pH 7.33, pO2 306, O2 Sat 100.0. Treatment 06/21: Remained intubated until 06/23, extubated to 5L nc, PO 96. IV dilaudid 1 mg q1H/prn, IV Na Cl 1,000 mls @ 100 mls/hr. 06/22: IV Na Cl 2,000 mls @ 999 mls/hr q2H, Is there an additional diagnosis that is clinically appropriate for this patient? [ x ] Acute Hypoxic Respiratory Failure [ ] Acute Hypercapnic Respiratory Failure [ ] Other Diagnosis, please specify: [ ] Unable to determine (Template Last Revised: July 2020) MTDD
[2021-06-24] MEDS: SODIUM CHLORIDE 0.9% 1,000 ML IV SCH ×2 (08:50→22:47)
[2021-06-24] MEDS: PIPERACILLIN-TAZOBACTAM 3.375 GM in SODIUM CHLORIDE 0.9% 100 ML IVPB SCH ×3 (08:50→23:08)
[2021-06-24] MEDS: POTASSIUM CHLORIDE 10 MEQ in WATER FOR INJECTION 1 100ML.BAG IVPB SCH ×2 (08:50→10:24)
--- NOTE | 2021-06-24 08:53 | CDI ---
Documentation Clarification Form Date: 06/24/2021 08:47:16 AM From: Abiola Arora CCS, CCDS Admit Date: 06/20/2021 12:12:00 AM Patient Name: Mc Salcedo Visit Number: [id number] Discharge Date: ATTENTION: The Clinical Documentation Specialists (CDI) and [facility] Coding Staff appreciate your assistance in clarifying documentation. Please respond to the clarification below the line at the bottom and electronically sign. The CDI & [facility] Coding staff will review the response and follow-up if needed. Please note: Queries are made part of the Legal Health Record. If you have any questions, please contact the author of this message via ITS. Dr. Gomez Whitney: Acute Respiratory Failure secondary to Sepsis post Laparotomy is documented in the 06/22 & 06/23 Medical Management progress Notes without further specificity. Additional clarification is requested regarding the relationship, if any, that exists between the diagnosis of Acute Respiratory Failure and the procedure. History/Risk Factors per the 06/20 History & Physical: Crohn's Disease, hospitalized on 05/28/21 with Abscess and status post Ileocolectomy and Washout of Peritoneal Abscess; Hernia Repair, Former smoker. Clinical Indicators: Presented to the ED on 06/19 with Abdominal pain x3 weeks status post Ileocolectomy with Washout of Peritoneal Abscess on 05/28/21, Abscess was felt to be the result of Crohn's Disease. Patient has purulent drainage from his abdominal incision & abdominal pain. Admit with Incisional Infection, Ileus and Weakness. 06/20 VS: T 97.8, P 105, 88; R 18, BP 137/92, PO 96 RA, BMI: 38.7 06/21 VS: T 98.4, P 149, R 14, BP 142/96, PO 90 on vent from OR 06/21 Blood Gas: ABG pH 7.33, pO2 306, O2 Sat 100.0. 06/21 Preopeartive Diagnosis: Perforated Viscus 06/21 Postoperative Diagnosis: Abdominal Fascial Dehiscence, Perforated Small Bowel 06/21 Procedure Performed: Exploratory Laparotomy, Small Bowel Resection, Right Colectomy, Ileostomy Treatment 06/21: Remained intubated until 06/23, extubated to 5L nc, PO 96. IV dilaudid 1 mg q1H/prn, IV Na Cl 1,000 mls @ 100 mls/hr. 06/22: IV Na Cl 2,000 mls @ 999 mls/hr q2H, What relationship, if any, exists between the diagnosis of Acute Respiratory Failure and the procedure: [ ] Acute Respiratory Failure is a complication of surgical procedure [ ] Acute Respiratory Failure is an expected outcome of the surgical procedure [ x ] Acute Respiratory Failure is related to patients co-morbid condition(s), please specify: __Obesity & not a complication of the procedure [ ] Other, please specify: [ ] Unable to determine (Template Last Revised: July 2020) MTDD
[2021-06-24] MEDS: ENOXAPARIN 40 MG/0.4 ML SYRINGE SQ SCH (08:55)
[2021-06-24] MEDS ORDERED: FAT EMULSION 20% 500 ML in EMPTY BAG 1 BAG IV SCH (10:00)
[2021-06-24 12:06] LABS: Glucose,Whole Blood 115 mg/dL (75-99)
--- NOTE | 2021-06-24 12:20 | P.PN ---
Subjective Progress Note Date: 06/24/21 This is a 41-year-old white male patient who was recently hospitalized From 05/25/2021 through 06/09/2021 for acute abdomen related to abscess formation and perforation with pneumoperitoneum, and acute COVID-19 related to pneumonia. During his stay patient underwent right colectomy, resection of terminal ileum and end to end anastomosis by Dr. Marsh. He required ICU admission, IV antibiotics, patient was successfully weaned and extubated, she was started on oral feedings, she is doing very well, and following his discharge he went to inpatient rehab. On 06/19/2021 patient came into the emergency department with complaints of abdominal pain, purulent drainage from his abdominal incision. Po or appetite. No complaints of nausea or vomiting, no diarrhea or constipation, no fever or chills. Patient was recently discharged from the inpatient rehab and was at home for the past few days. His abdominal and pelvic CT showed dilated small bowel suggestive of severe ileus or distal mechanical small bowel obstruction, previous surgery at the cecum, there was clearing of the pneumoperitoneum, there was improvement in the infiltrates at the lung bases. Patient was taken to surgery on the 06/19/2021 for evidence of perforated viscus and abdominal fascial dehiscence, and underwent exploratory laparotomy, small bowel resection, right colectomy and ileostomy by Dr. Marsh. Patient return ed intubated and sedated on mechanical ventilator after surgery to the intensive care unit, he was given a liter bolus in the ICU, she is tachycardic, but not requiring any vasopressor support, low-grade fever this morning, he is currently on assist control mode of ventilation with a rate of 14, tidal volume 600, FiO2 of 40% and PEEP of 8, despite blood gas shows pO2 of 158, pCO2 29, and pH of 7.3 9 this was done and the above-mentioned event settings. He is currently sedated with Diprivan at 50 mics per kilo per minute, and 0.9 normal saline at a rate of 150 ML per hour, he is urine output is quite dark and scant. She will be given additional fluid boluses. She is currently on Zosyn, his wound cultures are growing gram-negative bacilli. Chest x-ray this morning shows persistent but improving basilar infiltrates and or atelectasis. Today's lab work is been reviewed, showing white blood cell count of 22, hemoglobin of 10.3, sodium is 132, potassium is 5.9, chloride is 107, CO2 is 16, B1 is 22, creatinine is 1.05. His total bilirubin is 2.3, LFTs were within normal limits. His mid abdominal incision is covered with surgical dressing, his right abdominal colostomy has not produced any stool or gas. Bowel sounds are absent. Patient is waking up, not following command, does not appear to be in any acute distress. On 06/23/2021 patient seen in follow-up in intensive care unit, he was successfully weaned and extubated from the mechanical ventilator yesterday, doing very well today, he is currently on 5 L of oxygen pulse ox is 97%, breathing comfortably, he is awake and alert, oriented 3, his postoperative surgical pain is reasonably well controlled. Denies any acute complaints other than being thirsty. Patient has been nothing by mouth. Vital signs have been stable, no fever or chills, today's chest x-ray has been reviewed showing mild retrocardiac infiltrate, correlate for atelectasis and pneumonia. Today's labs have been reviewed, white blood cell count is improved and is down to 10.9, hemoglobin is 7.3 possibly dilutional, platelet count is 242, sodium is 135, potassium is 4.4, chloride is 110, CO2 is 18, BUN is 24, creatinine 0.81. Blood culture has shown no growth, wound culture was positive for E. coli, patient is on Zosyn for antibiotic coverage, his abdominal incision is clean dry and intact, his right abdominal ileostomy starting to produce small amount of liquid stool. Bowel sounds are still very hypoactive, Wheeler catheter is in place, u rine output has been in the order of 45-60 mL. The patient is seen today 06/24/2021 in follow-up in the intensive care unit. He is currently sitting up in bed. Awake and alert in no acute distress. Maintaining good O2 saturations in the 90s on 4 L/m per nasal cannula. He has normal saline running at 100 ML's per hour. He is receiving TPN at 30 MLS per hour which will gradually be increased to 90 ML's per hour. He is on antibiotics in the form of Zosyn. He did have wound cultures positive for E. coli. Blood culture revealing no growth to date. Ostomy is functioning. White count 5.1. Hemoglobin 6.1. Sodium 138. Potassium 3.8. Bicarb 20. Creatinine 0.86. Glucose 121. Triglycerides 227. He is encouraged regarding the increased use of the incentive spirometer. Chest x-ray showing some atelectasis at the lung bases. Right upper extremity PICC line in place. He remains on Lovenox for DVT prophylaxis and Protonix for GI prophylaxis. Currently positive balance of 500 ML's. Trace peripheral edema. Objective - Vital Signs Vital signs: Vital Signs Temp 97.6 F 06/24/21 11:58 Pulse 84 06/24/21 11:58 Resp 18 06/24/21 11:58 BP 112/71 06/24/21 11:58 Pulse Ox 96 06/24/21 11:58 Intake & Output 06/23/21 06/24/21 06/24/21 18:59 06:59 18:59 Intake Total 1280 1470 974 Output Total 985 965 415 Balance 295 505 559 Weight 118 kg 118.8 kg Intake: IV 1280 1470 695 Piperacillin-Tazobactam 3 100 75 .375 gm In Sodium Chloride 0.9% 100 ml @ 25 mls/hr IVPB Q8HR [facility] Rx# :[id number] Potassium Chloride 10 meq 200 In Water For Injection 1 100ml.bag @ 100 mls/hr IVPB Q1H [facility] Rx#: [id number] Sodium Chloride 0.9% 1, 1150 1110 300 000 ml @ 100 mls/hr IV . Q10H [facility] Rx#:[id number] TPN 30 360 120 Blood Product 279 Rc Pheresis As-3 Unit 279 [id number] Output: Drainage 20 0 Abdomen 20 0 Urine 865 965 315 Stool 100 100 - Exam GENERAL EXAM: Awake and pleasant, 41-year-old white male, 4 L of oxygen resting comfortably, in no apparent distress. HEAD: Normocephalic/atraumatic. EYES: Normal reaction of pupils, equal size. Conjunctiva pink, sclera white. NOSE: Clear with pink turbinates. THROAT: No erythema or exudates. NECK: No masses, no JVD, no thyroid enlargement, no adenopathy. CHEST: No chest wall deformity. Symmetrical expansion. LUNGS: Equal air entry with faint crackles in the posterior bases CVS: Regular rate and rhythm, normal S1 and S2, no gallops, no murmurs, no rubs ABDOMEN: Soft, nontender. No hepatosplenomegaly, hypoactive bowel sounds, no guarding or rigidity. At abdominal incision is clean dry and intact, right abdominal ileostomy in place, with small amount of liquid brown stool, ADRIAN drain in the right abdomen with small amount of serosanguineous output compressed and draining EXTREMITIES: No clubbing, no edema, no cyanosis, 2+ pulses and upper and lower extremities. MUSCULOSKELETAL: Muscle strength and tone normal. SPINE: No scoliosis or deformity SKIN: No rashes CENTRAL NERVOUS SYSTEM: No focal deficits, tone is normal in all 4 extremities. PSYCHIATRIC: Alert and oriented -3. Appropriate affect. Intact judgment and insight. - Labs CBC & Chem 7: 06/24/21 05:48 06/24/21 05:48 Labs: Abnormal Lab Results - Last 24 Hours (Table) 06/23/21 06/23/21 06/24/21 Range/Units 05:59 23:07 05:48 RBC 2.00 L (4.30-5.90) m/uL Hgb 6.1 L* (13.0-17.5) gm/dL Hct 20.3 L (39.0-53.0) % MCV 101.9 H (80.0-100.0) fL MCHC 30.0 L (31.0-37.0) g/dL RDW 18.0 H (11.5-15.5) % Lymphocytes # 0.5 L (1.0-4.8) k/uL Chloride (98-107) mmol/L Carbon Dioxide (22-30) mmol/L BUN (9-20) mg/dL Glucose (74-99) mg/dL POC Glucose (mg/dL) 119 H (75-99) mg/dL Calcium (8.4-10.2) mg/dL Total Bilirubin (0.2-1.3) mg/dL Total Protein (6.3-8.2) g/dL Albumin (3.5-5.0) g/dL Triglycerides 227.00 H (0.00-149.00) mg/dL Crossmatch 06/24/21 06/24/21 06/24/21 Range/Units 05:48 05:50 07:21 RBC (4.30-5.90) m/uL Hgb (13.0-17.5) gm/dL Hct (39.0-53.0) % MCV (80.0-100.0) fL MCHC (31.0-37.0) g/dL RDW (11.5-15.5) % Lymphocytes # (1.0-4.8) k/uL Chloride 112 H (98-107) mmol/L Carbon Dioxide 20 L (22-30) mmol/L BUN 21 H (9-20) mg/dL Glucose 113 H (74-99) mg/dL POC Glucose (mg/dL) 121 H (75-99) mg/dL Calcium 7.7 L (8.4-10.2) mg/dL Total Bilirubin 1.5 H (0.2-1.3) mg/dL Total Protein 4.8 L (6.3-8.2) g/dL Albumin 2.1 L (3.5-5.0) g/dL Triglycerides (0.00-149.00) mg/dL Crossmatch See Detail 06/24/21 Range/Units 12:04 RBC (4.30-5.90) m/uL Hgb (13.0-17.5) gm/dL Hct (39.0-53.0) % MCV (80.0-100.0) fL MCHC (31.0-37.0) g/dL RDW (11.5-15.5) % Lymphocytes # (1.0-4.8) k/uL Chloride (98-107) mmol/L Carbon Dioxide (22-30) mmol/L BUN (9-20) mg/dL Glucose (74-99) mg/dL POC Glucose (mg/dL) 115 H (75-99) mg/dL Calcium (8.4-10.2) mg/dL Total Bilirubin (0.2-1.3) mg/dL Total Protein (6.3-8.2) g/dL Albumin (3.5-5.0) g/dL Triglycerides (0.00-149.00) mg/dL Crossmatch Microbiology - Last 24 Hours (Table) 06/22/21 05:49 Blood Culture - Preliminary Blood No Growth after 48 hours 06/20/21 13:01 Anaerobic Culture - Final Abdomen Anaerobic Gm Negative Bacilli Anaerobic Gm Negative Bacilli#2 Assessment and Plan Assessment: 1 Abdominal fascial dehiscence, perforated small bowel, intra-abdominal abscess, status post exploratory laparotomy, small bowel resection, right colec maribel and ileostomy on 06/21/2021. 2 Routine postoperative ventilator management. Patient was successfully weaned and extubated on 06/22/2021, tolerating extubation well so far. 3 Recent history of ileal colectomy and washout of peritoneal abscess on 05/28/2021 4 Recent COVID-19 related pneumonia 5 Crohn's disease with abscess status post ileocolectomy and peritoneal abscess washout 6 Generalized weakness 7 Ileus 8 Leukocytosis, related to intra-abdominal abscess, patient is covered with Zosyn, wound culture was positive for E. coli, leukocytosis is currently improving 9 Previous episode of A. fib with RVR during previous admission, currently in sinus mechanism Plan: The patient was seen and evaluated Chest x-ray and labs reviewed Continue Zosyn Continue to titrate the FiO2 as tolerated Continue to utilize the incentive spirometer as much as possible To receive 1 unit of packed red blood cells Keep in the ICU another 24 hours Increase his activity as tolerated We will continue to follow I, the cosigning physician, performed a history & physical examination of the patient. Lungs sounds faint crackles in the posterior bases. Maintaining good O2 saturations in the 90s on 4 L/m per nasal cannula. I discussed the assessment and plan of care with my nurse practitioner, Nevaeh Piña. I attest to the above note as dictated by her.
--- NOTE | 2021-06-24 13:31 | P.PN ---
Subjective Progress Note Date: 06/24/21 CHIEF COMPLAINT: Drainage from abdominal incision HISTORY OF PRESENT ILLNESS: Patient is status post exploratory laparotomy, small bowel resection, right colectomy with ileostomy for abdominal fascial dehi scence, perforated small bowel and intra-abdominal abscess. Postop day #3. Patient remains in the ICU. He is receiving 1 unit of blood for hemoglobin of 6.1. Signs of active bleeding. He was started on TPN. His pain is controlled. His dressing was changed last night. Ileostomy functioning. ADRIAN drain with 25 ml serosanguineous output. Afebrile. Heart rate in the 80s. WBC 5.1 hemoglobin 6.1 platelets 211 sodium 138 potassium is 3.8 creatinine 0.86 Patient seen and examined with Dr. steen PHYSICAL EXAM: VITAL SIGNS: Reviewed. GENERAL: Well-developed in no acute distress. HEENT: No sclera icterus. Extraocular movements grossly intact. Moist buccal mucosa. Head is atraumatic, normocephalic. ABDOMEN: Soft. Nondistended. Ileostomy with liquidy stool and small amount of air. Incision is packed dressing does have sanguinous output. Outer dressing clean dry and intact. NEUROLOGIC: Alert and oriented. Cranial nerves II through XII grossly intact. ASSESSMENT: 1. 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 Ileus 3. Crohn's disease with abscess status post ileocolectomy and washout of peritoneal abscess on 05/28/2021 4. Generalized weakness 5. Anemia likely dilutional from IV fluids PLAN: -Agree with blood transfusion -Advance diet to clear liquids -Continue TPN for nutrition support -Repeat hemoglobin in a.m. -Encouraged patient to increase activity -Continue wet-to-dry dressings at incision -Continue supportive care -Continue IV fluids -Continue antibiotics -Continue pain medication as needed -Incentive spirometer ordered -DVT prophylaxis Lovenox and GI prophylaxis Protonix Physician Trailer Technician note has been reviewed by physician. Signing provider agrees with the documented findings, assessment, and plan of care. Objective - Vital Signs Vital signs: Vital Signs Temp 97.6 F 06/24/21 11:58 Pulse 84 06/24/21 11:58 Resp 18 06/24/21 11:58 BP 112/71 06/24/21 11:58 Pulse Ox 96 06/24/21 11:58 Intake & Output 06/23/21 06/24/21 06/24/21 18:59 06:59 18:59 Intake Total 1280 1470 974 Output Total 985 965 415 Balance 295 505 559 Weight 118 kg 118.8 kg Intake: IV 1280 1470 695 Piperacillin-Tazobactam 3 100 75 .375 gm In Sodium Chloride 0.9% 100 ml @ 25 mls/hr IVPB Q8HR [facility] Rx# :[id number] Potassium Chloride 10 meq 200 In Water For Injection 1 100ml.bag @ 100 mls/hr IVPB Q1H [facility] Rx#: [id number] Sodium Chloride 0.9% 1, 1150 1110 300 000 ml @ 100 mls/hr IV . Q10H [facility] Rx#:[id number] TPN 30 360 120 Blood Product 279 Rc Pheresis As-3 Unit 279 [id number] Output: Drainage 20 0 Abdomen 20 0 Urine 865 965 315 Stool 100 100 - Labs CBC & Chem 7: 06/24/21 05:48 06/24/21 05:48 Labs: Abnormal Lab Results - Last 24 Hours (Table) 06/23/21 06/23/21 06/24/21 Range/Units 05:59 23:07 05:48 RBC 2.00 L (4.30-5.90) m/uL Hgb 6.1 L* (13.0-17.5) gm/dL Hct 20.3 L (39.0-53.0) % MCV 101.9 H (80.0-100.0) fL MCHC 30.0 L (31.0-37.0) g/dL RDW 18.0 H (11.5-15.5) % Lymphocytes # 0.5 L (1.0-4.8) k/uL Chloride (98-107) mmol/L Carbon Dioxide (22-30) mmol/L BUN (9-20) mg/dL Glucose (74-99) mg/dL POC Glucose (mg/dL) 119 H (75-99) mg/dL Calcium (8.4-10.2) mg/dL Total Bilirubin (0.2-1.3) mg/dL Total Protein (6.3-8.2) g/dL Albumin (3.5-5.0) g/dL Triglycerides 227.00 H (0.00-149.00) mg/dL Crossmatch 06/24/21 06/24/21 06/24/21 Range/Units 05:48 05:50 07:21 RBC (4.30-5.90) m/uL Hgb (13.0-17.5) gm/dL Hct (39.0-53.0) % MCV (80.0-100.0) fL MCHC (31.0-37.0) g/dL RDW (11.5-15.5) % Lymphocytes # (1.0-4.8) k/uL Chloride 112 H (98-107) mmol/L Carbon Dioxide 20 L (22-30) mmol/L BUN 21 H (9-20) mg/dL Glucose 113 H (74-99) mg/dL POC Glucose (mg/dL) 121 H (75-99) mg/dL Calcium 7.7 L (8.4-10.2) mg/dL Total Bilirubin 1.5 H (0.2-1.3) mg/dL Total Protein 4.8 L (6.3-8.2) g/dL Albumin 2.1 L (3.5-5.0) g/dL Triglycerides (0.00-149.00) mg/dL Crossmatch See Detail 06/24/21 Range/Units 12:04 RBC (4.30-5.90) m/uL Hgb (13.0-17.5) gm/dL Hct (39.0-53.0) % MCV (80.0-100.0) fL MCHC (31.0-37.0) g/dL RDW (11.5-15.5) % Lymphocytes # (1.0-4.8) k/uL Chloride (98-107) mmol/L Carbon Dioxide (22-30) mmol/L BUN (9-20) mg/dL Glucose (74-99) mg/dL POC Glucose (mg/dL) 115 H (75-99) mg/dL Calcium (8.4-10.2) mg/dL Total Bilirubin (0.2-1.3) mg/dL Total Protein (6.3-8.2) g/dL Albumin (3.5-5.0) g/dL Triglycerides (0.00-149.00) mg/dL Crossmatch Microbiology - Last 24 Hours (Table) 06/22/21 05:49 Blood Culture - Preliminary Blood No Growth after 48 hours 06/20/21 13:01 Anaerobic Culture - Final Abdomen Anaerobic Gm Negative Bacilli Anaerobic Gm Negative Bacilli#2
--- NOTE | 2021-06-24 14:53 | P.PN ---
Subjective Progress Note Date: 06/24/21 Principal diagnosis: Abdominal wound infection Patient is 41 year male with a past medical history significant for Crohn's disease in this patient who recently did have a laparotomy for abdominal abscess, no readmitted to the hospital with abdominal pain and concern for abdominal wound dehiscence and possible infection. Patient was taken to the OR 06/21/2021 patient is status post laparotomy right colectomy and ileostomy and drainage of abdominal abscess On today's evaluation that is 06/24/2021, the patient remains to be afebrile, the patient is hemodynamically stable not requiring any pressor support, the patient is breathing comfortably on nasal cannula oxygen, the patient abdominal pain is currently controlled, the patient NG is out and denies nausea no vo miting no chest pain shortness of breath or cough and no diarrhea Objective - Vital Signs Vital signs: Vital Signs Temp 97.6 F 06/24/21 11:58 Pulse 84 06/24/21 11:58 Resp 18 06/24/21 11:58 BP 112/71 06/24/21 11:58 Pulse Ox 96 06/24/21 11:58 Intake & Output 06/23/21 06/24/21 06/24/21 18:59 06:59 18:59 Intake Total 1280 1470 974 Output Total 985 965 415 Balance 295 505 559 Weight 118 kg 118.8 kg Intake: IV 1280 1470 695 Piperacillin-Tazobactam 3 100 75 .375 gm In Sodium Chloride 0.9% 100 ml @ 25 mls/hr IVPB Q8HR [facility] Rx# :[id number] Potassium Chloride 10 meq 200 In Water For Injection 1 100ml.bag @ 100 mls/hr IVPB Q1H [facility] Rx#: [id number] Sodium Chloride 0.9% 1, 1150 1110 300 000 ml @ 100 mls/hr IV . Q10H [facility] Rx#:[id number] TPN 30 360 120 Blood Product 279 Rc Pheresis As-3 Unit 279 [id number] Output: Drainage 20 0 Abdomen 20 0 Urine 865 965 315 Stool 100 100 - Exam GENERAL DESCRIPTION:[ Patient is awake and alert in no distress] HEENT: [Oral mucosa is dry and no pharyngeal erythema] RESPIRATORY SYSTEM: [Unlabored breathing decreased. The base] CARDIA VASCULAR SYSTEM: [S1-S2 regular rate and rhythm no murmur] GI: [Abdominal soft no significant tenderness EXTREMITIES: [No edema feet] - Labs CBC & Chem 7: 06/24/21 05:48 06/24/21 05:48 Labs: Abnormal Lab Results - Last 24 Hours (Table) 06/23/21 06/23/21 06/24/21 Range/Units 05:59 23:07 05:48 RBC 2.00 L (4.30-5.90) m/uL Hgb 6.1 L* (13.0-17.5) gm/dL Hct 20.3 L (39.0-53.0) % MCV 101.9 H (80.0-100.0) fL MCHC 30.0 L (31.0-37.0) g/dL RDW 18.0 H (11.5-15.5) % Lymphocytes # 0.5 L (1.0-4.8) k/uL Chloride (98-107) mmol/L Carbon Dioxide (22-30) mmol/L BUN (9-20) mg/dL Glucose (74-99) mg/dL POC Glucose (mg/dL) 119 H (75-99) mg/dL Calcium (8.4-10.2) mg/dL Total Bilirubin (0.2-1.3) mg/dL Total Protein (6.3-8.2) g/dL Albumin (3.5-5.0) g/dL Triglycerides 227.00 H (0.00-149.00) mg/dL Crossmatch 06/24/21 06/24/21 06/24/21 Range/Units 05:48 05:50 07:21 RBC (4.30-5.90) m/uL Hgb (13.0-17.5) gm/dL Hct (39.0-53.0) % MCV (80.0-100.0) fL MCHC (31.0-37.0) g/dL RDW (11.5-15.5) % Lymphocytes # (1.0-4.8) k/uL Chloride 112 H (98-107) mmol/L Carbon Dioxide 20 L (22-30) mmol/L BUN 21 H (9-20) mg/dL Glucose 113 H (74-99) mg/dL POC Glucose (mg/dL) 121 H (75-99) mg/dL Calcium 7.7 L (8.4-10.2) mg/dL Total Bilirubin 1.5 H (0.2-1.3) mg/dL Total Protein 4.8 L (6.3-8.2) g/dL Albumin 2.1 L (3.5-5.0) g/dL Triglycerides (0.00-149.00) mg/dL Crossmatch See Detail 06/24/21 Range/Units 12:04 RBC (4.30-5.90) m/uL Hgb (13.0-17.5) gm/dL Hct (39.0-53.0) % MCV (80.0-100.0) fL MCHC (31.0-37.0) g/dL RDW (11.5-15.5) % Lymphocytes # (1.0-4.8) k/uL Chloride (98-107) mmol/L Carbon Dioxide (22-30) mmol/L BUN (9-20) mg/dL Glucose (74-99) mg/dL POC Glucose (mg/dL) 115 H (75-99) mg/dL Calcium (8.4-10.2) mg/dL Total Bilirubin (0.2-1.3) mg/dL Total Protein (6.3-8.2) g/dL Albumin (3.5-5.0) g/dL Triglycerides (0.00-149.00) mg/dL Crossmatch Microbiology - Last 24 Hours (Table) 06/22/21 05:49 Blood Culture - Preliminary Blood No Growth after 48 hours 06/20/21 13:01 Anaerobic Culture - Final Abdomen Anaerobic Gm Negative Bacilli Anaerobic Gm Negative Bacilli#2 Assessment and Plan (1) Incisional infection Current Visit: Yes Status: Acute Code(s): T81.49XA - INFECTION FOLLOWING A PROCEDURE, OTHER SURGICAL SITE, INIT SNOMED Code(s): 71990825 Plan: 1-patient admitted to the hospital with abdominal pain with abdominal incision dehiscence and concern for possible deep infection, and this patient who is status post exploratory laparotomy status post right colectomy and small bowel resection ileostomy and drainage of the abscess, no OR cultures were done superficial abdominal cultures showed E. coli and anaerobes, the patient is currently covered with the Zosyn which will be continued while monitoring his clinical course closely Time with Patient: Less than 30
[2021-06-24] MEDS: ONDANSETRON 4 MG/2 ML VIAL IVP PRN (15:05)
--- NOTE | 2021-06-24 17:41 | P.PN ---
Subjective 41-year-old male with history of Crohn's disease and abscess had a ileocolectomy on 05/28/2021 subsequently discharged to [facility] patient rehabitation patient won't cultures during previous hospital physicians showed E. coli and Keke patient to complete the treatment with Augmentin and Diflucan. I did evaluate this patient at [facility] at that time I obtain the cultures as there was concern about new infection in the surgical site area will obtain those cultures, infectious disease evaluated the patient there. Patient was subsequently discharged. came in with the increase the pain and infection of the surgical site area now. Patient had a CT of the abdomen which is concerning for ileus although patient was having normal bowel movements. Patient is hyponatremic. Patient will sugars are highly elevated lower obtain hemoglobin and patient was started on insulin regimen along with sliding scale. 06/21/2021 Patient was evaluated by general surgery and the infectious disease. There is mild area of redness, infectious disease doesn't believe patient has significant superficial infection there is no evidence of abscesses on the CT either although patient may need only back as per infectious disease cultures are pending patient is being can urine Zosyn. 06/22/2021 Patient is found to have pneumoperitoneum later in the day and patient underwent emergent laparotomy. With a small bowel resection and right colectomy and ileostomy. Patient is presently intubated on mechanical ventilator with the assist-control ventilation with respiratory rate of 14 and tidal volume of 6 and FiO2 of 40% PEEP of 8 patient is on propofol for sedation white blood cell count went up to 22,000 from normal white count, colostomy is empty at this time. 06/23/2020 Patient is extubated today patient is presently on 5 L of oxygen is alert awake alert oriented 3 patient White blood cell count has come down. And presently 10,900. Patient has a Wheeler catheter urine output around 50-60 mL per hour. Patient is off pressor support. 06/24/2020 This is a pleasant 41 years old male who was recently discharged from the hospital for intra-abdominal infection presents with incisional infection and abdominal wound dehiscence and he underwent exploratory laparotomy status post right colectomy and small bowel resection with ileostomy and drainage of an abscess. He is covered with Zosyn. Once culture was growing E. coli and an air MICROORGANISMS. Also he is on normal saline. He is awake and alert, not in distress. He is on a clear liquid diet. No nausea vomiting. As mild abdominal pain, no abdominal distention and it makes little bowel movement. Hemoglobin drops 7 down to 6.1 today and he got one unit of blood transfusion and we will check hemoglobin the morning. Objective - Vital Signs Vital signs: Vital Signs Temp 97.6 F 06/24/21 10:20 Pulse 87 06/24/21 10:20 Resp 16 06/24/21 10:20 BP 113/66 06/24/21 10:20 Pulse Ox 93 L 06/24/21 10:20 Intake & Output 06/23/21 06/24/21 06/24/21 18:59 06:59 18:59 Intake Total 1280 1470 415 Output Total 985 965 265 Balance 295 505 150 Weight 118 kg 118.8 kg Intake: IV 1280 1470 415 Piperacillin-Tazobactam 3 100 25 .375 gm In Sodium Chloride 0.9% 100 ml @ 25 mls/hr IVPB Q8HR [facility] Rx# :[id number] Potassium Chloride 10 meq 100 In Water For Injection 1 100ml.bag @ 100 mls/hr IVPB Q1H [facility] Rx#: [id number] Sodium Chloride 0.9% 1, 1150 1110 200 000 ml @ 100 mls/hr IV . Q10H [facility] Rx#:[id number] TPN 30 360 90 Blood Product 0 Rc Pheresis As-3 Unit 0 [id number] Output: Drainage 20 0 Abdomen 20 0 Urine 865 965 165 Stool 100 100 - Exam GENERAL: The patient is alert and oriented x3, not in any acute distress. Well developed, well nourished. HEENT: Pupils are round and equally reacting to light. EOMI. No scleral icterus. No conjunctival pallor. Normocephalic, atraumatic. No pharyngeal erythema. No thyromegaly. CARDIOVASCULAR: S1 and S2 present. No murmurs, rubs, or gallops. PULMONARY: Chest is clear to auscultation, no wheezing or crackles. ABDOMEN: Soft, nontender, nondistended, normoactive bowel sounds. No palpable organomegaly. Midline abdominal wound is healing and dressing is in place. Right lower ileostomy with back empty MUSCULOSKELETAL: No joint swelling or deformity. EXTREMITIES: No cyanosis, clubbing, or pedal edema. NEUROLOGICAL: Gross neurological examination did not reveal any focal deficits. SKIN: No rashes. no petechiae. - Labs CBC & Chem 7: 06/24/21 05:48 06/24/21 05:48 Labs: Abnormal Lab Results - Last 24 Hours (Table) 06/23/21 06/23/21 06/24/21 Range/Units 05:59 23:07 05:48 RBC 2.00 L (4.30-5.90) m/uL Hgb 6.1 L* (13.0-17.5) gm/dL Hct 20.3 L (39.0-53.0) % MCV 101.9 H (80.0-100.0) fL MCHC 30.0 L (31.0-37.0) g/dL RDW 18.0 H (11.5-15.5) % Lymphocytes # 0.5 L (1.0-4.8) k/uL Chloride (98-107) mmol/L Carbon Dioxide (22-30) mmol/L BUN (9-20) mg/dL Glucose (74-99) mg/dL POC Glucose (mg/dL) 119 H (75-99) mg/dL Calcium (8.4-10.2) mg/dL Total Bilirubin (0.2-1.3) mg/dL Total Protein (6.3-8.2) g/dL Albumin (3.5-5.0) g/dL Triglycerides 227.00 H (0.00-149.00) mg/dL Crossmatch 06/24/21 06/24/21 06/24/21 Range/Units 05:48 05:50 07:21 RBC (4.30-5.90) m/uL Hgb (13.0-17.5) gm/dL Hct (39.0-53.0) % MCV (80.0-100.0) fL MCHC (31.0-37.0) g/dL RDW (11.5-15.5) % Lymphocytes # (1.0-4.8) k/uL Chloride 112 H (98-107) mmol/L Carbon Dioxide 20 L (22-30) mmol/L BUN 21 H (9-20) mg/dL Glucose 113 H (74-99) mg/dL POC Glucose (mg/dL) 121 H (75-99) mg/dL Calcium 7.7 L (8.4-10.2) mg/dL Total Bilirubin 1.5 H (0.2-1.3) mg/dL Total Protein 4.8 L (6.3-8.2) g/dL Albumin 2.1 L (3.5-5.0) g/dL Triglycerides (0.00-149.00) mg/dL Crossmatch See Detail Microbiology - Last 24 Hours (Table) 06/22/21 05:49 Blood Culture - Preliminary Blood No Growth after 48 hours 06/20/21 13:01 Anaerobic Culture - Final Abdomen Anaerobic Gm Negative Bacilli Anaerobic Gm Negative Bacilli#2 Assessment and Plan Assessment: -Bowel perforation had ileus on admission. Status post laparotomy and small bowel resection, right colectomy ileostomy . Patient is presently on Zosyn -History of Crohn's disease status post redo colectomy a few weeks ago -Leukocytosis secondary to sepsis, bowel perforation wound cultures are showing gram-negative bacilli this is from the surgical wound from his previous surgery improving patient is presently on Zosyn won't cultures are showing E. coli
[2021-06-24] MEDS: 1: MVI, ADULT NO.4 WITH VIT K 10 ML, TRACE (CONC-1ML/DOSE) 1 ML, SODIUM ACETATE 30 MEQ, IV SCH ×7 (17:58)
[2021-06-24] MEDS ORDERED: 1: MVI, ADULT NO.4 WITH VIT K 10 ML, TRACE (CONC-1ML/DOSE) 1 ML in AMINO ACID 5%-D20W+LY IV SCH ×3 (18:00)
[2021-06-24 18:03] LABS: Glucose,Whole Blood 117 mg/dL (75-99)
[2021-06-25 01:12] LABS: Glucose,Whole Blood 130 mg/dL (75-99)
[2021-06-25] MEDS: INSULIN ASPART (NovoLOG) 100 UNIT/ML VIAL SQ SCH ×4 (01:32→18:55)
[2021-06-25] MEDS: HYDROmorphone 1 MG/ML 1 ML SYRINGE IVP PRN ×5 (02:08→22:36)
[2021-06-25 06:25] LABS: Glucose,Whole Blood 112 mg/dL (75-99)
--- NOTE | 2021-06-25 06:50 | XR ---
EXAMINATION TYPE: XR chest 1V portable DATE OF EXAM: 06/25/2021 COMPARISON: 06/24/2021 HISTORY: Shortness of breath TECHNIQUE: Single frontal view of the chest is obtained. FINDINGS: There is a poor inspiratory effort which limits the evaluation. There are no definite lung infiltrates. There is no pneumothorax or large pleural effusion. Heart size normal. The osseous stru ctures are intact. No change in the right-sided PICC line. IMPRESSION: Limited by poor inspiratory effort. No definite abnormal lung opacity.
[2021-06-25 07:01] LABS: ALT 19 U/L (4-49); AST 31 U/L (17-59); African American GFR (CKD) >90 (>60 ml/min/1.73 sqM); Albumin/Globulin Ratio 0.7; Alkaline Phosphatase 91 U/L (38-126); Anion Gap 5 mmol/L; Blood Urea Nitrogen 17 mg/dL (9-20); Calcium 7.4 mg/dL (8.4-10.2); Carbon Dioxide 20 mmol/L (22-30); Chloride 107 mmol/L (98-107); Globulin 2.7 g/dL; Glucose 120 mg/dL (74-99); Magnesium 1.8 mg/dL (1.6-2.3); Non-African American GFR(CKD) >90 (>60 ml/min/1.73 sqM); Phosphorus 3.2 mg/dL (2.5-4.5); Potassium 3.5 mmol/L (3.5-5.1); Sodium 132 mmol/L (137-145); Total Bilirubin 1.4 mg/dL (0.2-1.3); Total Protein 4.7 g/dL (6.3-8.2)
[2021-06-25] MEDS: 1: MVI, ADULT NO.4 WITH VIT K 10 ML, TRACE (CONC-1ML/DOSE) 1 ML, SODIUM ACETATE 30 MEQ, IV SCH ×7 (07:01)
[2021-06-25] MEDS: SODIUM CHLORIDE 0.9% 1,000 ML IV SCH ×2 (07:25→21:08)
[2021-06-25] MEDS: PANTOPRAZOLE 40 MG TABLET PO SCH (08:29)
[2021-06-25] MEDS: ENOXAPARIN 40 MG/0.4 ML SYRINGE SQ SCH (08:29)
[2021-06-25] MEDS: PIPERACILLIN-TAZOBACTAM 3.375 GM in SODIUM CHLORIDE 0.9% 100 ML IVPB SCH ×2 (08:29→17:44)
[2021-06-25 09:51] LABS: Basophils # (A) 0.01 X 10*3/uL (0.00-0.10); Basophils % (A) 0.2 %; Eosinophils # (A) 0.09 X 10*3/uL (0.04-0.35); Eosinophils % (A) 1.7 %; HCT 22.8 % (39.6-50.0); HGB 6.6 g/dL (13.0-17.0); Hypochromasia (M) 2+; Immature Grans, Automated 2.4 %; Lymphocytes # (A) 0.64 X 10*3/uL (0.90-5.00); Lymphocytes % (A) 11.9 %; MCH 28.8 pg (27.0-32.0); MCHC 28.9 g/dL (32.0-37.0); MCV 99.6 fL (80.0-97.0); Mean Platelet Volume 10.4 fL (9.5-12.2); Monocytes % (A) 5.6 %; NRBC Per 100 WBC 0 /100 WBCS (0.0-0.0); Neutrophils # (A) 4.22 X 10*3/uL (1.80-7.70); Neutrophils % (A) 78.2 %; Platelet Count 156 X 10*3/uL (140-440); RBC 2.29 X 10*6/uL (4.40-5.60); RDW 18.9 % (11.5-14.5); WBC 5.39 X 10*3/uL (4.50-10.00)
[2021-06-25] MEDS: MAGNESIUM SULFATE-D5W PMX 1 GM in DEXTROSE/WATER 1 100ML.BAG IVPB SCH ×2 (11:02→12:04)
[2021-06-25 11:42] LABS: Glucose,Whole Blood 145 mg/dL (75-99)
[2021-06-25] MEDS: POTASSIUM CHLORIDE 20 MEQ in WATER FOR INJECTION 1 100ML.BAG IVPB SCH ×2 (13:21→15:21)
--- NOTE | 2021-06-25 13:53 | P.PN ---
Subjective Progress Note Date: 06/25/21 CHIEF COMPLAINT: Perforated viscus HISTORY OF PRESENT ILLNESS: The patient is a 41-year-old male status post small bowel resection, right colectomy with ileostomy, 06/21/2021 with history of Crohn's. He has been transferred from the intensive care unit to the medical floor. He is tolerating liquids but has trouble with carbonated beverages. Goins catheter is present. ROS: No fevers or chills. No new chest pain. No productive sputum PHYSICAL EXAM: VITAL SIGNS: Reviewed CONSTITUTIONAL: Well developed and in no acute distress. EYES: Conjuctivae without sclera icterus. Extraocular movements grossly intact. HEAD, EARS, NOSE, THROAT: Moist buccal mucosa. Head is atraumatic, normocephalic . No nasal drainage. RESPIRATORY: Non-labored respirations and equal bilateral excursions. CARDIOVASCULAR: Palpable 2+ radial pulses. ABDOMEN: Dressing clean dry and intact. ADRIAN is serous. Ostomy patent with stool and air. MUSCULOSKELETAL: No gross deformity of the lower extremities noted. No clubbing. No cyanosis. SKIN: Good skin turgor. Well perfused. NEUROLOGIC: Cranial nerves II through XII grossly intact. No focal or lateralizing signs. PSYCH: Alert to person. CLINICAL LABS: Reviewed. White blood cell count normal 5.3. Hemoglobin below 6.6. ASSESSMENT: 1. Crohn's disease status post right colectomy ileostomy 2. Acute blood loss anemia PLAN: 1. Blood transfusion as needed for symptomatic anemia. 2. Advance diet to full liquid 3. Discontinue goins catheter Objective - Vital Signs Vital signs: Vital Signs Temp 98.8 F 06/25/21 07:25 Pulse 72 06/25/21 07:25 Resp 16 06/25/21 07:25 BP 106/62 06/25/21 07:25 Pulse Ox 95 06/25/21 07:25 Intake & Output 06/24/21 06/25/21 06/25/21 18:59 06:59 18:59 Intake Total 1519 1511 Output Total 760 8460 50 Balance 754 -659 -50 Weight 118.8 kg Intake: IV 1240 Piperacillin-Tazobactam 3 100 .375 gm In Sodium Chloride 0.9% 100 ml @ 25 mls/hr IVPB Q8HR [facility] Rx# :[id number] Potassium Chloride 10 meq 200 In Water For Injection 1 100ml.bag @ 100 mls/hr IVPB Q1H [facility] Rx#: [id number] Sodium Chloride 0.9% 1, 700 000 ml @ 100 mls/hr IV . Q10H [facility] Rx#:[id number] TPN 240 Intake, IV Titration 1031 Amount Sodium Acetate 30 meq 1031 Potassium Phosphate 15 mmol Magnesium Sulfate 4 meq Calcium Gluconate 1 gm In Amino Acids 5 %/ Dextrose 20 % 1,000 ml @ 90 mls/hr IV .BY DURATION [facility] Rx#:[id number] Oral 480 Blood Product 279 Rc Pheresis As-3 Unit 279 [id number] Output: Drainage 0 20 Abdomen 0 20 Urine 665 2100 Uretheral (Goins) 1300 Stool 100 50 50 Other: Voiding Method Indwelling Catheter Indwelling Catheter # Bowel Movements 0 - Labs CBC & Chem 7: 06/25/21 05:57 06/25/21 05:57 Labs: Abnormal Lab Results - Last 24 Hours (Table) 06/24/21 06/24/21 06/25/21 Range/Units 07:21 18:01 01:11 RBC (4.40-5.60) X 10*6/uL Hgb (13.0-17.0) g/dL Hct (39.6-50.0) % MCV (80.0-97.0) fL MCHC (32.0-37.0) g/dL RDW (11.5-14.5) % Immature Gran # (0.00-0.04) X 10*3/uL Lymphocytes # (0.90-5.00) X 10*3/uL Sodium (137-145) mmol/L Carbon Dioxide (22-30) mmol/L Glucose (74-99) mg/dL POC Glucose (mg/dL) 117 H 130 H (75-99) mg/dL Calcium (8.4-10.2) mg/dL Total Bilirubin (0.2-1.3) mg/dL Total Protein (6.3-8.2) g/dL Albumin (3.5-5.0) g/dL Crossmatch See Detail 06/25/21 06/25/21 06/25/21 Range/Units 05:57 05:57 06:23 RBC 2.29 L (4.40-5.60) X 10*6/uL Hgb 6.6 L* (13.0-17.0) g/dL Hct 22.8 L (39.6-50.0) % MCV 99.6 H (80.0-97.0) fL MCHC 28.9 L (32.0-37.0) g/dL RDW 18.9 H (11.5-14.5) % Immature Gran # 0.13 H (0.00-0.04) X 10*3/uL Lymphocytes # 0.64 L (0.90-5.00) X 10*3/uL Sodium 132 L (137-145) mmol/L Carbon Dioxide 20 L (22-30) mmol/L Glucose 120 H (74-99) mg/dL POC Glucose (mg/dL) 112 H (75-99) mg/dL Calcium 7.4 L (8.4-10.2) mg/dL Total Bilirubin 1.4 H (0.2-1.3) mg/dL Total Protein 4.7 L (6.3-8.2) g/dL Albumin 2.0 L (3.5-5.0) g/dL Crossmatch 06/25/21 Range/Units 11:41 RBC (4.40-5.60) X 10*6/uL Hgb (13.0-17.0) g/dL Hct (39.6-50.0) % MCV (80.0-97.0) fL MCHC (32.0-37.0) g/dL RDW (11.5-14.5) % Immature Gran # (0.00-0.04) X 10*3/uL Lymphocytes # (0.90-5.00) X 10*3/uL Sodium (137-145) mmol/L Carbon Dioxide (22-30) mmol/L Glucose (74-99) mg/dL POC Glucose (mg/dL) 145 H (75-99) mg/dL Calcium (8.4-10.2) mg/dL Total Bilirubin (0.2-1.3) mg/dL Total Protein (6.3-8.2) g/dL Albumin (3.5-5.0) g/dL Crossmatch Microbiology - Last 24 Hours (Table) 06/22/21 05:49 Blood Culture - Preliminary Blood No Growth after 72 hours
[2021-06-25 14:59] LABS: Anisocytosis Slight; Basophils % (A) 0 %; Eosinophils # (A) 0.1 k/uL (0-0.7); Eosinophils % (A) 2 %; HCT 22.2 % (39.0-53.0); Hypochromasia Marked; Lymphocytes # (A) 0.5 k/uL (1.0-4.8); Lymphocytes % (A) 10 %; MCH 29.8 pg (25.0-35.0); MCHC 30.7 g/dL (31.0-37.0); Macrocytosis Slight; Mean Platelet Volume 7.7; Monocytes # (A) 0.2 k/uL (0-1.0); Monocytes % (A) 4 %; Neutrophils # (A) 3.9 k/uL (1.3-7.7); Neutrophils % (A) 83 %; Platelet Count 215 k/uL (150-450); RBC 2.29 m/uL (4.30-5.90); RDW 17.2 % (11.5-15.5); WBC 4.7 k/uL (3.8-10.6)
[2021-06-25 15:11] LABS: HGB 6.8 gm/dL (13.0-17.5)
--- NOTE | 2021-06-25 16:24 | P.PN ---
Subjective 41-year-old male with history of Crohn's disease and abscess had a ileocolectomy on 05/28/2021 subsequently discharged to [facility] patient rehabitation patient won't cultures during previous hospital physicians showed E. coli and Keke patient to complete the treatment with Augmentin and Diflucan. I did evaluate this patient at [facility] at that time I obtain the cultures as there was concern about new infection in the surgical site area will obtain those cultures, infectious disease evaluated the patient there. Patient was subsequently discharged. came in with the increase the pain and infection of the surgical site area now. Patient had a CT of the abdomen which is concerning for ileus although patient was having normal bowel movements. Patient is hyponatremic. Patient will sugars are highly elevated lower obtain hemoglobin and patient was started on insulin regimen along with sliding scale. 06/21/2021 Patient was evaluated by general surgery and the infectious disease. There is mild area of redness, infectious disease doesn't believe patient has significant superficial infection there is no evidence of abscesses on the CT either although patient may need only back as per infectious disease cultures are pending patient is being can urine Zosyn. 06/22/2021 Patient is found to have pneumoperitoneum later in the day and patient underwent emergent laparotomy. With a small bowel resection and right colectomy and ileostomy. Patient is presently intubated on mechanical ventilator with the assist-control ventilation with respiratory rate of 14 and tidal volume of 6 and FiO2 of 40% PEEP of 8 patient is on propofol for sedation white blood cell count went up to 22,000 from normal white count, colostomy is empty at this time. 06/23/2021 Patient is extubated today patient is presently on 5 L of oxygen is alert awake alert oriented 3 patient White blood cell count has come down. And presently 10,900. Patient has a Wheeler catheter urine output around 50-60 mL per hour. Patient is off pressor support. 06/24/2021 This is a pleasant 41 years old male who was recently discharged from the hospital for intra-abdominal infection presents with incisional infection and abdominal wound dehiscence and he underwent exploratory laparotomy status post right colectomy and small bowel resection with ileostomy and drainage of an abscess. He is covered with Zosyn. Once culture was growing E. coli and an air MICROORGANISMS. Also he is on normal saline. He is awake and alert, not in distress. He is on a clear liquid diet. No nausea vomiting. As mild abdominal pain, no abdominal distention and it makes little bowel movement. Hemoglobin drops 7 down to 6.1 today and he got one unit of blood transfusion and we will check hemoglobin the morning. 06/25/2021 Patient generally doing well, he was transferred to the general medical floor. He tolerates clear liquid diet and it was advanced today. Liquid diet. No vomiting, little expected abdominal pain. He has some loose bowel movement does not look C. diff but to go to check anyway. His hemoglobin was 6.1 yesterday and after 1 unit of blood transfusion went up to 6.6 but because of shortness and supply the couple for transfusion nowadays is 6.5 in this facility. We repeated hemoglobin and is stable at 6.8 and sligh tly improving referral keep monitoring for now. Patient with no overt signs of bleeding currently. Also surgery team on the case. No more fever. Chest x-ray showing no definite lung capacity per radiologist. Remains on Zosyn and normal saline at 100 mL per hour. Also TPN Objective - Vital Signs Vital signs: Vital Signs Temp 98.8 F 06/25/21 07:25 Pulse 72 06/25/21 07:25 Resp 16 06/25/21 07:25 BP 106/62 06/25/21 07:25 Pulse Ox 95 06/25/21 07:25 Intake & Output 06/24/21 06/25/21 06/25/21 18:59 06:59 18:59 Intake Total 1519 1511 Output Total 765 2170 50 Balance 754 -659 -50 Weight 118.8 kg Intake: IV 1240 Piperacillin-Tazobactam 3 100 .375 gm In Sodium Chloride 0.9% 100 ml @ 25 mls/hr IVPB Q8HR [facility] Rx# :[id number] Potassium Chloride 10 meq 200 In Water For Injection 1 100ml.bag @ 100 mls/hr IVPB Q1H [facility] Rx#: [id number] Sodium Chloride 0.9% 1, 700 000 ml @ 100 mls/hr IV . Q10H [facility] Rx#:[id number] TPN 240 Intake, IV Titration 1031 Amount Sodium Acetate 30 meq 1031 Potassium Phosphate 15 mmol Magnesium Sulfate 4 meq Calcium Gluconate 1 gm In Amino Acids 5 %/ Dextrose 20 % 1,000 ml @ 90 mls/hr IV .BY DURATION [facility] Rx#:[id number] Oral 480 Blood Product 279 Rc Pheresis As-3 Unit 279 [id number] Output: Drainage 0 20 Abdomen 0 20 Urine 665 2100 Uretheral (Wheeler) 1300 Stool 100 50 50 Other: Voiding Method Indwelling Catheter Indwelling Catheter # Bowel Movements 0 - Exam GENERAL: The patient is alert and oriented x3, not in any acute distress. Well developed, well nourished. HEENT: Pupils are round and equally reacting to light. EOMI. No scleral icterus. No conjunctival pallor. Normocephalic, atraumatic. No pharyngeal erythema. No thyromegaly. CARDIOVASCULAR: S1 and S2 present. No murmurs, rubs, or gallops. PULMONARY: Chest is clear to auscultation, no wheezing or crackles. ABDOMEN: Soft, nontender, nondistended, normoactive bowel sounds. No palpable organomegaly. Midline abdominal wound is healing and dressing is in place. Right lower ileostomy with back empty MUSCULOSKELETAL: No joint swelling or deformity. EXTREMITIES: No cyanosis, clubbing, or pedal edema. NEUROLOGICAL: Gross neurological examination did not reveal any focal deficits. SKIN: No rashes. no petechiae. - Labs CBC & Chem 7: 06/25/21 14:40 06/25/21 05:57 Labs: Abnormal Lab Results - Last 24 Hours (Table) 06/24/21 06/24/21 06/25/21 Range/Units 07:21 18:01 01:11 RBC (4.40-5.60) X 10*6/uL Hgb (13.0-17.0) g/dL Hct (39.6-50.0) % MCV (80.0-97.0) fL MCHC (32.0-37.0) g/dL RDW (11.5-14.5) % Immature Gran # (0.00-0.04) X 10*3/uL Lymphocytes # (0.90-5.00) X 10*3/uL Sodium (137-145) mmol/L Carbon Dioxide (22-30) mmol/L Glucose (74-99) mg/dL POC Glucose (mg/dL) 117 H 130 H (75-99) mg/dL Calcium (8.4-10.2) mg/dL Total Bilirubin (0.2-1.3) mg/dL Total Protein (6.3-8.2) g/dL Albumin (3.5-5.0) g/dL Crossmatch See Detail 06/25/21 06/25/21 06/25/21 Range/Units 05:57 05:57 06:23 RBC 2.29 L (4.40-5.60) X 10*6/uL Hgb 6.6 L* (13.0-17.0) g/dL Hct 22.8 L (39.6-50.0) % MCV 99.6 H (80.0-97.0) fL MCHC 28.9 L (32.0-37.0) g/dL RDW 18.9 H (11.5-14.5) % Immature Gran # 0.13 H (0.00-0.04) X 10*3/uL Lymphocytes # 0.64 L (0.90-5.00) X 10*3/uL Sodium 132 L (137-145) mmol/L Carbon Dioxide 20 L (22-30) mmol/L Glucose 120 H (74-99) mg/dL POC Glucose (mg/dL) 112 H (75-99) mg/dL Calcium 7.4 L (8.4-10.2) mg/dL Total Bilirubin 1.4 H (0.2-1.3) mg/dL Total Protein 4.7 L (6.3-8.2) g/dL Albumin 2.0 L (3.5-5.0) g/dL Crossmatch 06/25/21 Range/Units 11:41 RBC (4.40-5.60) X 10*6/uL Hgb (13.0-17.0) g/dL Hct (39.6-50.0) % MCV (80.0-97.0) fL MCHC (32.0-37.0) g/dL RDW (11.5-14.5) % Immature Gran # (0.00-0.04) X 10*3/uL Lymphocytes # (0.90-5.00) X 10*3/uL Sodium (137-145) mmol/L Carbon Dioxide (22-30) mmol/L Glucose (74-99) mg/dL POC Glucose (mg/dL) 145 H (75-99) mg/dL Calcium (8.4-10.2) mg/dL Total Bilirubin (0.2-1.3) mg/dL Total Protein (6.3-8.2) g/dL Albumin (3.5-5.0) g/dL Crossmatch Microbiology - Last 24 Hours (Table) 06/22/21 05:49 Blood Culture - Preliminary Blood No Growth after 72 hours Assessment and Plan Assessment: -Bowel perforation had ileus on admission. Status post laparotomy and small bowel resection, right colectomy ileostomy . Patient is presently on Zosyn -History of Crohn's disease status post redo colectomy a few weeks ago -Leukocytosis secondary to sepsis, bowel perforation wound cultures are showing gram-negative bacilli this is from the surgical wound from his previous surgery improving patient is presently on Zosyn won't cultures are showing E. coli
--- NOTE | 2021-06-25 16:28 | P.PN ---
Subjective Progress Note Date: 06/25/21 Principal diagnosis: Status post exploratory laparotomy. This is a 41-year-old white male patient who was recently hospitalized From 05/25/2021 through 06/09/2021 for acute abdomen related to abscess formation and perforation with pneumoperitoneum, and acute COVID-19 related to pneumonia. During his stay patient underwent right colectomy, resection of terminal ileum and end to end anastomosis by Dr. Marsh. He required ICU admission, IV antibiotics, patient was successfully weaned and extubated, she was started on oral feedings, she is doing very well, and following his discharge he went to inpatient rehab. On 06/19/2021 patient came into the emergency department with complaints of abdominal pain, purulent drainage from his abdominal incision. Poor appetite. No complaints of nausea or vomiting, no diarrhea or constipation, no fever or chills. Patient was recently discharged from the inpatient rehab and was at home for the past few days. His abdominal and pelvic CT showed dilated small bowel suggestive of severe ileus or distal mechanical small bowel obstruction, previous surgery at the cecum, there was clearing of the pneumoperitoneum, there was improvement in the infiltrates at the lung bases. Patient was taken to surgery on the 06/19/2021 for evidence of perforated viscus and abdominal fascial dehiscence, and underwent exploratory laparotomy, small bowel resection, right colectomy and ileostomy by Dr. Marsh. Patient returned intubated and sedated on mechanical ventilator after surgery to the intensive care unit, he was given a liter bolus in the ICU, she is tachycardic, but not requiring any vasopressor support, low-grade fever this morning, he is currently on assist control mode of ventilation with a rate of 14, tidal volume 600, FiO2 of 40% and PEEP of 8, despite blood gas shows pO2 of 158, pCO2 29, and pH of 7.39 this was done and the above-mentioned event settings. He is currently sedated with Diprivan at 50 mics per kilo per minute, and 0.9 normal saline at a rate of 150 ML per hour, he is urine output is quite dark and scant. She will be given additional fluid boluses. She is currently on Zosyn, his wound cultures are growing gram-negative bacilli. Chest x-ray this morning shows persistent but improving basilar infiltrates and or atelectasis. Today's lab work is been reviewed, showing white blood cell count of 22, hemoglobin of 10.3, sodium is 132, potassium is 5.9, chloride is 107, CO2 is 16, B1 is 22, creatinine is 1.05. His total bilirubin is 2.3, LFTs were within normal limits. His mid abdominal incision is covered with surgical dressing, his right abdominal colostomy has not produced any stool or gas. Bowel sounds are absent. Patient is waking up, not following command, does not appear to be in any acute distress. On 06/23/2021 patient seen in follow-up in intensive care unit, he was success fully weaned and extubated from the mechanical ventilator yesterday, doing very well today, he is currently on 5 L of oxygen pulse ox is 97%, breathing comfortably, he is awake and alert, oriented 3, his postoperative surgical pain is reasonably well controlled. Denies any acute complaints other than being thirsty. Patient has been nothing by mouth. Vital signs have been stable, no fever or chills, today's chest x-ray has been reviewed showing mild retrocardiac infiltrate, correlate for atelectasis and pneumonia. Today's labs have been reviewed, white blood cell count is improved and is down to 10.9, hemoglobin is 7.3 possibly dilutional, platelet count is 242, sodium is 135, potassium is 4.4, chloride is 110, CO2 is 18, BUN is 24, creatinine 0.81. Blood culture has shown no growth, wound culture was positive for E. coli, patient is on Zosyn for antibiotic coverage, his abdominal incision is clean dry and intact, his right abdominal ileostomy starting to produce small amount of liquid stool. Bowel sounds are still very hypoactive, Wheeler catheter is in place, urine output has b een in the order of 45-60 mL. The patient is seen today 06/24/2021 in follow-up in the intensive care unit. He is currently sitting up in bed. Awake and alert in no acute distress. Maintaining good O2 saturations in the 90s on 4 L/m per nasal cannula. He has normal saline running at 100 ML's per hour. He is receiving TPN at 30 MLS per hour which will gradually be increased to 90 ML's per hour. He is on antibiotics in the form of Zosyn. He did have wound cultures positive for E. coli. Blood culture revealing no growth to date. Ostomy is functioning. White count 5.1. Hemoglobin 6.1. Sodium 138. Potassium 3.8. Bicarb 20. Creatinine 0.86. Glucose 121. Triglycerides 227. He is encouraged regarding the increased use of the incentive spirometer. Chest x-ray showing some atelectasis at the lung bases. Right upper extremity PICC line in place. He remains on Lovenox for DVT prophylaxis and Protonix for GI prophylaxis. Currently positive balance of 500 ML's. Trace peripheral edema. Progress note dated 06/25/2021. The patient was seen today in room 479. Yesterday, he was still in the intensive care unit. Currently, he's been weaned on 2 L nasal cannula. He remains on TPN. The patient's ostomy is functioning. He continues on Zosyn. Wound cultures were positive for Escherichia coli. The patient feels much improved. At one point he was on room air, but he feels a bit better with the oxygen running. We did recommend deep breathing, coughing, clearing of sec retions, and hourly use of the incentive spirometer. White count 4.7, hemoglobin 6.8, hematocrit 22.2, and platelet count is 215,000. Sodium 132, potassium 3.5, chlorides 107, CO2 20, anion gap 5, BUN 17, and creatinine 0.73. Albumin is 2. Chest x-ray shows a poor inspiratory effort with small lung volumes. No definitive abnormality is noted. There may be some mild basilar atelectasis. 1 unit of packed red blood cells were ordered today. Objective - Vital Signs Vital signs: Vital Signs Temp 98.5 F 06/25/21 14:00 Pulse 91 06/25/21 14:00 Resp 16 06/25/21 14:00 BP 124/68 06/25/21 14:00 Pulse Ox 94 L 06/25/21 14:00 Intake & Output 06/24/21 06/25/21 06/25/21 18:59 06:59 18:59 Intake Total 1519 1511 Output Total 765 2170 200 Balance 754 -659 -200 Weight 118.8 kg Intake: IV 1240 Piperacillin-Tazobactam 3 100 .375 gm In Sodium Chloride 0.9% 100 ml @ 25 mls/hr IVPB Q8HR [facility] Rx# :[id number] Potassium Chloride 10 meq 200 In Water For Injection 1 100ml.bag @ 100 mls/hr IVPB Q1H [facility] Rx#: [id number] Sodium Chloride 0.9% 1, 700 000 ml @ 100 mls/hr IV . Q10H [facility] Rx#:[id number] TPN 240 Intake, IV Titration 1031 Amount Sodium Acetate 30 meq 1031 Potassium Phosphate 15 mmol Magnesium Sulfate 4 meq Calcium Gluconate 1 gm In Amino Acids 5 %/ Dextrose 20 % 1,000 ml @ 90 mls/hr IV .BY DURATION [facility] Rx#:[id number] Oral 480 Blood Product 279 Rc Pheresis As-3 Unit 279 [id number] Output: Drainage 0 20 Abdomen 0 20 Urine 665 2100 Uretheral (Wheeler) 1300 Stool 100 50 200 Other: Voiding Method Indwelling Catheter Indwelling Catheter # Bowel Movements 0 - Exam No acute distress, oriented 3. Nasal O2 noted at 2 L. The patient is a bit pale. HEENT examination is grossly unremarkable. Neck supple. Full range of motion. No adenopathy thyromegaly or neck vein distention. Cardiovascular examination reveals regular rhythm rate. S1-S2 normal. No S3 or S4. No discernible murmur noted. Heart rate 91 bpm. Lungs reveal mild scattered rhonchi. No wheezes or crackles. Breath sounds are equal bilaterally. Abdomen soft with occasional bowel sounds. No masses or tenderness. Ostomy is noted. Extremities are intact. No cyanosis clubbing or edema. Skin is without rash or lesion. Neurologic examination is brief but nonfocal. - Labs CBC & Chem 7: 06/25/21 14:40 06/25/21 05:57 Labs: Abnormal Lab Results - Last 24 Hours (Table) 06/24/21 06/24/21 06/25/21 Range/Units 07:21 18:01 01:11 RBC (4.40-5.60) X 10*6/uL Hgb (13.0-17.0) g/dL Hct (39.6-50.0) % MCV (80.0-97.0) fL MCHC (32.0-37.0) g/dL RDW (11.5-14.5) % Immature Gran # (0.00-0.04) X 10*3/uL Lymphocytes # (0.90-5.00) X 10*3/uL Sodium (137-145) mmol/L Carbon Dioxide (22-30) mmol/L Glucose (74-99) mg/dL POC Glucose (mg/dL) 117 H 130 H (75-99) mg/dL Calcium (8.4-10.2) mg/dL Total Bilirubin (0.2-1.3) mg/dL Total Protein (6.3-8.2) g/dL Albumin (3.5-5.0) g/dL Crossmatch See Detail 06/25/21 06/25/21 06/25/21 Range/Units 05:57 05:57 06:23 RBC 2.29 L (4.40-5.60) X 10*6/uL Hgb 6.6 L* (13.0-17.0) g/dL Hct 22.8 L (39.6-50.0) % MCV 99.6 H (80.0-97.0) fL MCHC 28.9 L (32.0-37.0) g/dL RDW 18.9 H (11.5-14.5) % Immature Gran # 0.13 H (0.00-0.04) X 10*3/uL Lymphocytes # 0.64 L (0.90-5.00) X 10*3/uL Sodium 132 L (137-145) mmol/L Carbon Dioxide 20 L (22-30) mmol/L Glucose 120 H (74-99) mg/dL POC Glucose (mg/dL) 112 H (75-99) mg/dL Calcium 7.4 L (8.4-10.2) mg/dL Total Bilirubin 1.4 H (0.2-1.3) mg/dL Total Protein 4.7 L (6.3-8.2) g/dL Albumin 2.0 L (3.5-5.0) g/dL Crossmatch 06/25/21 06/25/21 Range/Units 11:41 14:40 RBC 2.29 L (4.40-5.60) X 10*6/uL Hgb 6.8 L* (13.0-17.0) g/dL Hct 22.2 L (39.6-50.0) % MCV (80.0-97.0) fL MCHC 30.7 L (32.0-37.0) g/dL RDW 17.2 H (11.5-14.5) % Immature Gran # (0.00-0.04) X 10*3/uL Lymphocytes # 0.5 L (0.90-5.00) X 10*3/uL Sodium (137-145) mmol/L Carbon Dioxide (22-30) mmol/L Glucose (74-99) mg/dL POC Glucose (mg/dL) 145 H (75-99) mg/dL Calcium (8.4-10.2) mg/dL Total Bilirubin (0.2-1.3) mg/dL Total Protein (6.3-8.2) g/dL Albumin (3.5-5.0) g/dL Crossmatch Microbiology - Last 24 Hours (Table) 06/22/21 05:49 Blood Culture - Preliminary Blood No Growth after 72 hours Assessment and Plan Assessment: 1 Abdominal fascial dehiscence, perforated small bowel, intra-abdominal abscess, status post exploratory laparotomy, small bowel resection, right colectomy and ileostomy on 06/21/2021. 2 Routine postoperative ventilator management. Patient was successfully weaned and extubated on 06/22/2021. 3 Recent history of ileal colectomy and washout of peritoneal abscess on 05/28/2021. 4 Recent COVID-19 related pneumonia. 5 Crohn's disease with abscess status post ileocolectomy and peritoneal abscess washout. 6 Generalized weakness. 7 Ileus. 8 Leukocytosis, related to intra-abdominal abscess. 9 Previous episode of A. fib with RVR during previous admission, currently in sinus mechanism. Plan: Plan dated 06/25/2021. Currently, the patient is doing reasonably well. His hemoglobin was 6.8. Patient will receive 1 unit of packed red blood cells. He continues on Zosyn. I recommended the patient deep breathing, cough, and clear secretions, and also use his incentive spirometer, every hour while awake. The patient was in the ICU yesterday. Transferred out to the floor yesterday. Clinically he looks relatively stable. He is laying flat in bed without any respiratory difficulty or distress. He is currently on 2 L nasal O2. We will continue to follow make recommendations where appropriate. Time with Patient: Less than 30
[2021-06-25 18:53] LABS: Glucose,Whole Blood 100 mg/dL (75-99)
[2021-06-26] MEDS: PIPERACILLIN-TAZOBACTAM 3.375 GM in SODIUM CHLORIDE 0.9% 100 ML IVPB SCH ×4 (00:24→23:46)
[2021-06-26] MEDS: INSULIN ASPART (NovoLOG) 100 UNIT/ML VIAL SQ SCH ×5 (00:35→23:46)
[2021-06-26 00:38] LABS: Glucose,Whole Blood 126 mg/dL (75-99)
[2021-06-26] MEDS: SODIUM CHLORIDE 0.9% 1,000 ML IV SCH ×3 (03:27→21:21)
[2021-06-26] MEDS: HYDROmorphone 1 MG/ML 1 ML SYRINGE IVP PRN ×4 (04:19→20:17)
[2021-06-26 06:18] LABS: Glucose,Whole Blood 131 mg/dL (75-99)
[2021-06-26 06:49] LABS: African American GFR (CKD) >90 (>60 ml/min/1.73 sqM); Anion Gap 4 mmol/L; Blood Urea Nitrogen 15 mg/dL (9-20); Calcium 7.4 mg/dL (8.4-10.2); Carbon Dioxide 25 mmol/L (22-30); Chloride 102 mmol/L (98-107); Glucose 137 mg/dL (74-99); Non-African American GFR(CKD) >90 (>60 ml/min/1.73 sqM); Phosphorus 3.6 mg/dL (2.5-4.5); Potassium 3.2 mmol/L (3.5-5.1); Sodium 131 mmol/L (137-145)
[2021-06-26] MEDS: PANTOPRAZOLE 40 MG TABLET PO SCH (08:54)
[2021-06-26] MEDS: ENOXAPARIN 40 MG/0.4 ML SYRINGE SQ SCH (08:54)
[2021-06-26 11:48] LABS: Glucose,Whole Blood 139 mg/dL (75-99)
[2021-06-26] MEDS: POTASSIUM CHLORIDE 20 MEQ in WATER FOR INJECTION 1 100ML.BAG IVPB SCH ×2 (12:50→14:53)
--- NOTE | 2021-06-26 14:36 | P.PN ---
Subjective Progress Note Date: 06/26/21 Principal diagnosis: Status post exploratory laparotomy. This is a 41-year-old white male patient who was recently hospitalized From 05/25/2021 through 06/09/2021 for acute abdomen related to abscess formation and perforation with pneumoperitoneum, and acute COVID-19 related to pneumonia. During his stay patient underwent right colectomy, resection of terminal ileum and end to end anastomosis by Dr. Marsh. He required ICU admission, IV antibiotics, patient was successfully weaned and extubated, she was started on oral feedings, she is doing very well, and following his discharge he went to inpatient rehab. On 06/19/2021 patient came into the emergency department with complaints of abdominal pain, purulent drainage from his abdominal incision. Poor appetite. No complaints of nausea or vomiting, no diarrhea or constipation, no fever or chills. Patient was recently discharged from the inpatient rehab and was at home for the past few days. His abdominal and pelvic CT showed dilated small bowel suggestive of severe ileus or distal mechanical small bowel obstruction, previous surgery at the cecum, there was clearing of the pneumoperitoneum, there was improvement in the infiltrates at the lung bases. Patient was taken to surgery on the 06/19/2021 for evidence of perforated viscus and abdominal fascial dehiscence, and underwent exploratory laparotomy, small bowel resection, right colectomy and ileostomy by Dr. Marsh. Patient returned intubated and sedated on mechanical ventilator after surgery to the intensive care unit, he was given a liter bolus in the ICU, she is tachycardic, but not requiring any vasopressor support, low-grade fever this morning, he is currently on assist control mode of ventilation with a rate of 14, tidal volume 600, FiO2 of 40% and PEEP of 8, despite blood gas shows pO2 of 158, pCO2 29, and pH of 7.39 this was done and the above-mentioned event settings. He is currently sedated with Diprivan at 50 mics per kilo per minute, and 0.9 normal saline at a rate of 150 ML per hour, he is urine output is quite dark and scant. She will be given additional fluid boluses. She is currently on Zosyn, his wound cultures are growing gram-negative bacilli. Chest x-ray this morning shows persistent but improving basilar infiltrates and or atelectasis. Today's lab work is been reviewed, showing white blood cell count of 22, hemoglobin of 10.3, sodium is 132, potassium is 5.9, chloride is 107, CO2 is 16, B1 is 22, creatinine is 1.05. His total bilirubin is 2.3, LFTs were within normal limits. His mid abdominal incision is covered with surgical dressing, his right abdominal colostomy has not produced any stool or gas. Bowel sounds are absent. Patient is waking up, not following command, does not appear to be in any acute distress. On 06/23/2021 patient seen in follow-up in intensive care unit, he was success fully weaned and extubated from the mechanical ventilator yesterday, doing very well today, he is currently on 5 L of oxygen pulse ox is 97%, breathing comfortably, he is awake and alert, oriented 3, his postoperative surgical pain is reasonably well controlled. Denies any acute complaints other than being thirsty. Patient has been nothing by mouth. Vital signs have been stable, no fever or chills, today's chest x-ray has been reviewed showing mild retrocardiac infiltrate, correlate for atelectasis and pneumonia. Today's labs have been reviewed, white blood cell count is improved and is down to 10.9, hemoglobin is 7.3 possibly dilutional, platelet count is 242, sodium is 135, potassium is 4.4, chloride is 110, CO2 is 18, BUN is 24, creatinine 0.81. Blood culture has shown no growth, wound culture was positive for E. coli, patient is on Zosyn for antibiotic coverage, his abdominal incision is clean dry and intact, his right abdominal ileostomy starting to produce small amount of liquid stool. Bowel sounds are still very hypoactive, Wheeler catheter is in place, urine output has b een in the order of 45-60 mL. The patient is seen today 06/24/2021 in follow-up in the intensive care unit. He is currently sitting up in bed. Awake and alert in no acute distress. Maintaining good O2 saturations in the 90s on 4 L/m per nasal cannula. He has normal saline running at 100 ML's per hour. He is receiving TPN at 30 MLS per hour which will gradually be increased to 90 ML's per hour. He is on antibiotics in the form of Zosyn. He did have wound cultures positive for E. coli. Blood culture revealing no growth to date. Ostomy is functioning. White count 5.1. Hemoglobin 6.1. Sodium 138. Potassium 3.8. Bicarb 20. Creatinine 0.86. Glucose 121. Triglycerides 227. He is encouraged regarding the increased use of the incentive spirometer. Chest x-ray showing some atelectasis at the lung bases. Right upper extremity PICC line in place. He remains on Lovenox for DVT prophylaxis and Protonix for GI prophylaxis. Currently positive balance of 500 ML's. Trace peripheral edema. Progress note dated 06/25/2021. The patient was seen today in room 479. Yesterday, he was still in the intensive care unit. Currently, he's been weaned on 2 L nasal cannula. He remains on TPN. The patient's ostomy is functioning. He continues on Zosyn. Wound cultures were positive for Escherichia coli. The patient feels much improved. At one point he was on room air, but he feels a bit better with the oxygen running. We did recommend deep breathing, coughing, clearing of sec retions, and hourly use of the incentive spirometer. White count 4.7, hemoglobin 6.8, hematocrit 22.2, and platelet count is 215,000. Sodium 132, potassium 3.5, chlorides 107, CO2 20, anion gap 5, BUN 17, and creatinine 0.73. Albumin is 2. Chest x-ray shows a poor inspiratory effort with small lung volumes. No definitive abnormality is noted. There may be some mild basilar atelectasis. 1 unit of packed red blood cells were ordered today. Progress note dated 06/26/2021. The patient is again seen in room 479. Currently, the patient remains on 2 L nasal cannula. He is also getting TPN. The patient's doing relatively well. He continues on Zosyn. Wound cultures were positive for Escherichia coli. I've encouraged him to continue taking deep breaths, cough, and clear secretions, as well as using the incentive spirometer, every hour while awake. Sodium 131, potassium 3.2, chlorides 102, CO2 25, anion gap 4, BUN 15, and creatinine 0.7. Calcium is 7.4. Objective - Vital Signs Vital signs: Vital Signs Temp 98.3 F 06/26/21 08:00 Pulse 87 01/30/22 08:00 Resp 16 06/26/21 08:00 BP 121/78 06/26/21 08:00 Pulse Ox 98 06/26/21 08:00 Intake & Output 06/25/21 06/26/21 06/26/21 18:59 06:59 18:59 Intake Total 1200 Output Total 200 2520 1900 Balance -200 -1320 -1900 Intake: IV 1200 Piperacillin-Tazobactam 3 200 .375 gm In Sodium Chloride 0.9% 100 ml @ 25 mls/hr IVPB Q8HR [facility] Rx# :[id number] TPN 1000 Output: Drainage 20 Abdomen 20 Urine 2500 1150 Stool 200 750 Other: Voiding Method Indwelling Catheter - Exam No acute distress, oriented 3. Nasal O2 noted at 2 L. The patient is a bit pale. Saturations are 98%. HEENT examination is grossly unremarkable. Neck supple. Full range of motion. No adenopathy thyromegaly or neck vein distention. Cardiovascular examination reveals regular rhythm rate. S1-S2 normal. No S3 or S4. No discernible murmur noted. Heart rate 87 bpm. Lungs reveal mild scattered rhonchi. No wheezes or crackles. Breath sounds are equal bilaterally. Abdomen soft with occasional bowel sounds. No masses or tenderness. Ostomy is noted. Extremities are intact. No cyanosis clubbing or edema. Skin is without rash or lesion. Neurologic examination is brief but nonfocal. - Labs CBC & Chem 7: 06/25/21 14:40 06/26/21 06:04 Labs: Abnormal Lab Results - Last 24 Hours (Table) 06/25/21 06/25/21 06/26/21 Range/Units 14:40 18:51 00:31 RBC 2.29 L (4.30-5.90) m/uL Hgb 6.8 L* (13.0-17.5) gm/dL Hct 22.2 L (39.0-53.0) % MCHC 30.7 L (31.0-37.0) g/dL RDW 17.2 H (11.5-15.5) % Lymphocytes # 0.5 L (1.0-4.8) k/uL Sodium (137-145) mmol/L Potassium (3.5-5.1) mmol/L Glucose (74-99) mg/dL POC Glucose (mg/dL) 100 H 126 H (75-99) mg/dL Calcium (8.4-10.2) mg/dL 06/26/21 06/26/21 06/26/21 Range/Units 06:04 06:17 11:47 RBC (4.30-5.90) m/uL Hgb (13.0-17.5) gm/dL Hct (39.0-53.0) % MCHC (31.0-37.0) g/dL RDW (11.5-15.5) % Lymphocytes # (1.0-4.8) k/uL Sodium 131 L (137-145) mmol/L Potassium 3.2 L (3.5-5.1) mmol/L Glucose 137 H (74-99) mg/dL POC Glucose (mg/dL) 131 H 139 H (75-99) mg/dL Calcium 7.4 L (8.4-10.2) mg/dL Microbiology - Last 24 Hours (Table) 06/22/21 05:49 Blood Culture - Preliminary Blood No Growth after 96 hours Assessment and Plan Assessment: 1 Abdominal fascial dehiscence, perforated small bowel, intra-abdominal abscess, status post exploratory laparotomy, small bowel resection, right colectomy and ileostomy on 06/21/2021. Wound cultures positive for Escherichia coli, currently on Zosyn. 2 Routine postoperative ventilator management. Patient was successfully weaned and extubated on 06/22/2021. 3 Recent history of ileal colectomy and washout of peritoneal abscess on 05/28/2021. 4 Recent COVID-19 related pneumonia. 5 Crohn's disease with abscess status post ileocolectomy and peritoneal abscess washout. 6 Generalized weakness. 7 Ileus. 8 Leukocytosis, related to intra-abdominal abscess. 9 Previous episode of A. fib with RVR during previous admission, currently in sinus mechanism. Plan: Plan dated 06/25/2021. Currently, the patient is doing reasonably well. His hemoglobin was 6.8. Julio C johnson will receive 1 unit of packed red blood cells. He continues on Zosyn. I recommended the patient deep breathing, cough, and clear secretions, and also use his incentive spirometer, every hour while awake. The patient was in the ICU yesterday. Transferred out to the floor yesterday. Clinically he looks relatively stable. He is laying flat in bed without any respiratory difficulty or distress. He is currently on 2 L nasal O2. We will continue to follow make recommendations where appropriate. Plan dated 06/26/2021. The patient's doing very well. He is resting comfortably. He continues on TPN. He's on 2 L nasal cannula. Saturations are excellent. The patient did receive unit of packed red blood cells. The patient denies any pain or discomfort. We do encourage him to deep breathe, cough, and clear secretions. We also encouraged him to use incentive spirometer every hour while awake. We'll continue to follow. Prognosis is guarded. Time with Patient: Less than 30
--- NOTE | 2021-06-26 15:11 | P.PN ---
Subjective Progress Note Date: 06/26/21 CHIEF COMPLAINT: Perforated viscus HISTORY OF PRESENT ILLNESS: The patient is a 41-year-old male status post small bowel resection, right colectomy with ileostomy, 06/21/2021 with history of Crohn's. He is tolerating full liquid diet. He has been staying in bed most of the time today. No signs of bleeding. ROS: No fevers or chills. No new chest pain. No productive sputum PHYSICAL EXAM: VITAL SIGNS: Reviewed CONSTITUTIONAL: Well developed and in no acute distress. EYES: Conjuctivae without sclera icterus. Extraocular movements grossly intact. HEAD, EARS, NOSE, THROAT: Moist buccal mucosa. Head is atraumatic, normocephalic. No nasal drainage. RESPIRATORY: Non-labored respirations and equal bilateral excursions. CARDIOVASCULAR: Palpable 2+ radial pulses. ABDOMEN: Dressing clean dry and intact. ADRIAN is serous. Ostomy patent MUSCULOSKELETAL: No gross deformity of the lower extremities noted. No clubbing. No cyanosis. SKIN: Good skin turgor. Well perfused. NEUROLOGIC: Cranial nerves II through XII grossly intact. No focal or lateralizing signs. PSYCH: Alert to person. CLINICAL LABS: Reviewed. ASSESSMENT: 1. Crohn's disease status post right colectomy ileostomy 2. Acute blood loss anemia PLAN: 1. Continue full liquid diet Objective - Vital Signs Vital signs: Vital Signs Temp 98.5 F 06/26/21 14:00 Pulse 88 06/26/21 14:00 Resp 16 06/26/21 14:00 BP 125/78 06/26/21 14:00 Pulse Ox 99 06/26/21 14:00 Intake & Output 06/25/21 06/26/21 06/26/21 18:59 06:59 18:59 Intake Total 1200 Output Total 200 2520 1900 Balance -200 -1320 -1900 Intake: IV 1200 Piperacillin-Tazobactam 3 200 .375 gm In Sodium Chloride 0.9% 100 ml @ 25 mls/hr IVPB Q8HR [facility] Rx# :[id number] TPN 1000 Output: Drainage 20 Abdomen 20 Urine 2500 1150 Stool 200 750 Other: Voiding Method Indwelling Catheter - Labs CBC & Chem 7: 06/25/21 14:40 06/26/21 06:04 Labs: Abnormal Lab Results - Last 24 Hours (Table) 06/25/21 06/25/21 06/26/21 Range/Units 14:40 18:51 00:31 RBC 2.29 L (4.30-5.90) m/uL Hgb 6.8 L* (13.0-17.5) gm/dL Hct 22.2 L (39.0-53.0) % MCHC 30.7 L (31.0-37.0) g/dL RDW 17.2 H (11.5-15.5) % Lymphocytes # 0.5 L (1.0-4.8) k/uL Sodium (137-145) mmol/L Potassium (3.5-5.1) mmol/L Glucose (74-99) mg/dL POC Glucose (mg/dL) 100 H 126 H (75-99) mg/dL Calcium (8.4-10.2) mg/dL 06/26/21 06/26/21 06/26/21 Range/Units 06:04 06:17 11:47 RBC (4.30-5.90) m/uL Hgb (13.0-17.5) gm/dL Hct (39.0-53.0) % MCHC (31.0-37.0) g/dL RDW (11.5-15.5) % Lymphocytes # (1.0-4.8) k/uL Sodium 131 L (137-145) mmol/L Potassium 3.2 L (3.5-5.1) mmol/L Glucose 137 H (74-99) mg/dL POC Glucose (mg/dL) 131 H 139 H (75-99) mg/dL Calcium 7.4 L (8.4-10.2) mg/dL Microbiology - Last 24 Hours (Table) 06/22/21 05:49 Blood Culture - Preliminary Blood No Growth after 96 hours
--- NOTE | 2021-06-26 17:08 | P.PN ---
Subjective Progress Note Date: 06/25/21 Principal diagnosis: Abdominal wound infection Patient is 41 year male with a past medical history significant for Crohn's disease in this patient who recently did have a laparotomy for abdominal abscess, no readmitted to the hospital with abdominal pain and concern for abdominal wound dehiscence and possible infection. Patient was taken to the OR 06/21/2021 patient is status post laparotomy right colectomy and ileostomy and drainage of abdominal abscess On today's evaluation that is 06/25/2021, the patient denies any fever or any chills, the patient is hemodynamically stable not requiring any pressor support, the patient is breathing comfortably on 2 L nasal cannula oxygen, the patient abdominal pain is currently controlled, the patient denies nausea no vomiting no chest pain shortness of breath or cough and no diarrhea Objective - Vital Signs Vital signs: Vital Signs Temp 98 F 06/25/21 19:16 Pulse 83 06/25/21 19:16 Resp 16 06/25/21 19:16 BP 116/71 06/25/21 19:16 Pulse Ox 98 06/25/21 19:16 Intake & Output 06/25/21 06/25/21 06/26/21 06:59 18:59 06:59 Intake Total 1511 Output Total 2170 200 20 Balance -659 -200 -20 Intake: Intake, IV Titration 1031 Amount Sodium Acetate 30 meq 1031 Potassium Phosphate 15 mmol Magnesium Sulfate 4 meq Calcium Gluconate 1 gm In Amino Acids 5 %/ Dextrose 20 % 1,000 ml @ 90 mls/hr IV .BY [facility] Rx#:[id number] Oral 480 Output: Drainage 20 20 Abdomen 20 20 Urine 2100 Uretheral (Wheeler) 1300 Stool 50 200 Other: Voiding Method Indwelling Catheter Indwelling Catheter - Exam GENERAL DESCRIPTION:[ Patient is awake and alert in no distress] HEENT: [Oral mucosa is dry and no pharyngeal erythema] RESPIRATORY SYSTEM: [Unlabored breathing decreased. The base] CARDIA VASCULAR SYSTEM: [S1-S2 regular rate and rhythm no murmur] GI: [Abdominal soft no significant tenderness EXTREMITIES: [No edema feet] - Labs CBC & Chem 7: 06/25/21 14:40 06/26/21 06:04 Labs: Abnormal Lab Results - Last 24 Hours (Table) 06/24/21 06/25/21 06/25/21 Range/Units 07:21 01:11 05:57 RBC 2.29 L (4.40-5.60) X 10*6/uL Hgb 6.6 L* (13.0-17.0) g/dL Hct 22.8 L (39.6-50.0) % MCV 99.6 H (80.0-97.0) fL MCHC 28.9 L (32.0-37.0) g/dL RDW 18.9 H (11.5-14.5) % Immature Gran # 0.13 H (0.00-0.04) X 10*3/uL Lymphocytes # 0.64 L (0.90-5.00) X 10*3/uL Sodium (137-145) mmol/L Carbon Dioxide (22-30) mmol/L Glucose (74-99) mg/dL POC Glucose (mg/dL) 130 H (75-99) mg/dL Calcium (8.4-10.2) mg/dL Total Bilirubin (0.2-1.3) mg/dL Total Protein (6.3-8.2) g/dL Albumin (3.5-5.0) g/dL Crossmatch See Detail 06/25/21 06/25/21 06/25/21 Range/Units 05:57 06:23 11:41 RBC (4.40-5.60) X 10*6/uL Hgb (13.0-17.0) g/dL Hct (39.6-50.0) % MCV (80.0-97.0) fL MCHC (32.0-37.0) g/dL RDW (11.5-14.5) % Immature Gran # (0.00-0.04) X 10*3/uL Lymphocytes # (0.90-5.00) X 10*3/uL Sodium 132 L (137-145) mmol/L Carbon Dioxide 20 L (22-30) mmol/L Glucose 120 H (74-99) mg/dL POC Glucose (mg/dL) 112 H 145 H (75-99) mg/dL Calcium 7.4 L (8.4-10.2) mg/dL Total Bilirubin 1.4 H (0.2-1.3) mg/dL Total Protein 4.7 L (6.3-8.2) g/dL Albumin 2.0 L (3.5-5.0) g/dL Crossmatch 06/25/21 06/25/21 Range/Units 14:40 18:51 RBC 2.29 L (4.40-5.60) X 10*6/uL Hgb 6.8 L* (13.0-17.0) g/dL Hct 22.2 L (39.6-50.0) % MCV (80.0-97.0) fL MCHC 30.7 L (32.0-37.0) g/dL RDW 17.2 H (11.5-14.5) % Immature Gran # (0.00-0.04) X 10*3/uL Lymphocytes # 0.5 L (0.90-5.00) X 10*3/uL Sodium (137-145) mmol/L Carbon Dioxide (22-30) mmol/L Glucose (74-99) mg/dL POC Glucose (mg/dL) 100 H (75-99) mg/dL Calcium (8.4-10.2) mg/dL Total Bilirubin (0.2-1.3) mg/dL Total Protein (6.3-8.2) g/dL Albumin (3.5-5.0) g/dL Crossmatch Microbiology - Last 24 Hours (Table) 06/22/21 05:49 Blood Culture - Preliminary Blood No Growth after 72 hours Assessment and Plan (1) Incisional infection Current Visit: Yes Status: Acute Code(s): T81.49XA - INFECTION FOLLOWING A PROCEDURE, OTHER SURGICAL SITE, INIT SNOMED Code(s): 44583120 Plan: 1-patient admitted to the hospital with abdominal pain with abdominal incision dehiscence and concern for possible deep infection, and this patient who is status post exploratory laparotomy status post right colectomy and small bowel resection ileostomy and drainage of the abscess, no OR cultures were done superficial abdominal cultures showed E. coli and anaerobes, patient to continue the Zosyn while monitoring his clinical course closely Time with Patient: Less than 30
--- NOTE | 2021-06-26 17:10 | P.PN ---
Subjective Progress Note Date: 06/26/21 Principal diagnosis: Abdominal wound infection Patient is 41 year male with a past medical history significant for Crohn's disease in this patient who recently did have a laparotomy for abdominal abscess, no readmitted to the hospital with abdominal pain and concern for abdominal wound dehiscence and possible infection. Patient was taken to the OR 06/21/2021 patient is status post laparotomy right colectomy and ileostomy and drainage of abdominal abscess On today's evaluation that is 06/26/2021, the patient remains to be afebrile, the patient is breathing comfortably on 2 L nasal cannula oxygen, the patient abdominal pain is currently controlled, the patient denies nausea no vomiting no chest pain shortness of breath or cough Objective - Vital Signs Vital signs: Vital Signs Temp 98.5 F 06/26/21 14:00 Pulse 88 06/26/21 14:00 Resp 16 06/26/21 14:00 BP 125/78 06/26/21 14:00 Pulse Ox 99 06/26/21 14:00 Intake & Output 06/25/21 06/26/21 06/26/21 18:59 06:59 18:59 Intake Total 1200 Output Total 200 2520 1900 Balance -200 -1320 -1900 Intake: IV 1200 Piperacillin-Tazobactam 3 200 .375 gm In Sodium Chloride 0.9% 100 ml @ 25 mls/hr IVPB Q8HR [facility] Rx# :[id number] TPN 1000 Output: Drainage 20 Abdomen 20 Urine 2500 1150 Stool 200 750 Other: Voiding Method Indwelling Catheter - Exam GENERAL DESCRIPTION:[ Patient is awake and alert in no distress] HEENT: [Oral mucosa is dry and no pharyngeal erythema] RESPIRATORY SYSTEM: [Unlabored breathing decreased. The base] CARDIA VASCULAR SYSTEM: [S1-S2 regular rate and rhythm no murmur] GI: [Abdominal soft no significant tenderness EXTREMITIES: [No edema feet] - Labs CBC & Chem 7: 06/25/21 14:40 06/26/21 06:04 Labs: Abnormal Lab Results - Last 24 Hours (Table) 06/25/21 06/26/21 06/26/21 Range/Units 18:51 00:31 06:04 Sodium 131 L (137-145) mmol/L Potassium 3.2 L (3.5-5.1) mmol/L Glucose 137 H (74-99) mg/dL POC Glucose (mg/dL) 100 H 126 H (75-99) mg/dL Calcium 7.4 L (8.4-10.2) mg/dL 06/26/21 06/26/21 Range/Units 06:17 11:47 Sodium (137-145) mmol/L Potassium (3.5-5.1) mmol/L Glucose (74-99) mg/dL POC Glucose (mg/dL) 131 H 139 H (75-99) mg/dL Calcium (8.4-10.2) mg/dL Microbiology - Last 24 Hours (Table) 06/22/21 05:49 Blood Culture - Preliminary Blood No Growth after 96 hours Assessment and Plan (1) Incisional infection Current Visit: Yes Status: Acute Code(s): T81.49XA - INFECTION FOLLOWING A PROCEDURE, OTHER SURGICAL SITE, INIT SNOMED Code(s): 39297972 Plan: 1-patient admitted to the hospital with abdominal pain with abdominal incision dehiscence and concern for possible deep infection, and this patient who is status post exploratory laparotomy status post right colectomy and small bowel resection ileostomy and drainage of the abscess, no OR cultures were done superficial abdominal cultures showed E. coli and anaerobes, for which the patient is currently covered with Zosyn and monitor clinical course closely Time with Patient: Less than 30
--- NOTE | 2021-06-26 18:04 | P.PN ---
Subjective 41-year-old male with history of Crohn's disease and abscess had a ileocolectomy on 05/28/2021 subsequently discharged to [facility] patient rehabitation patient won't cultures during previous hospital physicians showed E. coli and Keke patient to complete the treatment with Augmentin and Diflucan. I did evaluate this patient at [facility] at that time I obtain the cultures as there was concern about new infection in the surgical site area will obtain those cultures, infectious disease evaluated the patient there. Patient was subsequently discharged. came in with the increase the pain and infection of the surgical site area now. Patient had a CT of the abdomen which is concerning for ileus although patient was having normal bowel movements. Patient is hyponatremic. Patient will sugars are highly elevated lower obtain hemoglobin and patient was started on insulin regimen along with sliding scale. 06/21/2021 Patient was evaluated by general surgery and the infectious disease. There is mild area of redness, infectious disease doesn't believe patient has significant superficial infection there is no evidence of abscesses on the CT either although patient may need only back as per infectious disease cultures are pending patient is being can urine Zosyn. 06/22/2021 Patient is found to have pneumoperitoneum later in the day and patient underwent emergent laparotomy. With a small bowel resection and right colectomy and ileostomy. Patient is presently intubated on mechanical ventilator with the assist-control ventilation with respiratory rate of 14 and tidal volume of 6 and FiO2 of 40% PEEP of 8 patient is on propofol for sedation white blood cell count went up to 22,000 from normal white count, colostomy is empty at this time. 06/23/2021 Patient is extubated today patient is presently on 5 L of oxygen is alert awake alert oriented 3 patient White blood cell count has come down. And presently 10,900. Patient has a Wheeler catheter urine output around 50-60 mL per hour. Patient is off pressor support. 06/24/2021 This is a pleasant 41 years old male who was recently discharged from the hospital for intra-abdominal infection presents with incisional infection and abdominal wound dehiscence and he underwent exploratory laparotomy status post right colectomy and small bowel resection with ileostomy and drainage of an abscess. He is covered with Zosyn. Once culture was growing E. coli and an air MICROORGANISMS. Also he is on normal saline. He is awake and alert, not in distress. He is on a clear liquid diet. No nausea vomiting. As mild abdominal pain, no abdominal distention and it makes little bowel movement. Hemoglobin drops 7 down to 6.1 today and he got one unit of blood transfusion and we will check hemoglobin the morning. 06/25/2021 Patient generally doing well, he was transferred to the general medical floor. He tolerates clear liquid diet and it was advanced today. Liquid diet. No vomiting, little expected abdominal pain. He has some loose bowel movement does not look C. diff but to go to check anyway. His hemoglobin was 6.1 yesterday and after 1 unit of blood transfusion went up to 6.6 but because of shortness and supply the couple for transfusion nowadays is 6.5 in this facility. We repeated hemoglobin and is stable at 6.8 and sligh tly improving referral keep monitoring for now. Patient with no overt signs of bleeding currently. Also surgery team on the case. No more fever. Chest x-ray showing no definite lung capacity per radiologist. Remains on Zosyn and normal saline at 100 mL per hour. Also TPN 06/26/2021 Patient with infected incisional wound and possible deep intra-abdominal infection and his been treated with Zosyn and improving gradually. He has no abdominal pain, he is tolerating his full liquid diet well. No vomiting. He has some loose bowel movement. He remains on TPN. Wheeler catheter is discontinue it and we are checking bladder scan We'll check C. diff although suspicion is low Patient himself feels better and he looks pleased with the dissection of his illness going to. All his questions answered Objective - Vital Signs Vital signs: Vital Signs Temp 98.3 F 06/26/21 08:00 Pulse 87 06/26/21 08:00 Resp 16 06/26/21 08:00 BP 121/78 06/26/21 08:00 Pulse Ox 98 06/26/21 08:00 Intake & Output 06/25/21 06/26/21 06/26/21 18:59 06:59 18:59 Intake Total 1200 Output Total 200 2520 750 Balance -200 -1320 -750 Intake: IV 1200 Piperacillin-Tazobactam 3 200 .375 gm In Sodium Chloride 0.9% 100 ml @ 25 mls/hr IVPB Q8HR [facility] Rx# :[id number] TPN 1000 Output: Drainage 20 Abdomen 20 Urine 2500 500 Stool 200 250 Other: Voiding Method Indwelling Catheter - Exam GENERAL: The patient is alert and oriented x3, not in any acute distress. Well developed, well nourished. HEENT: Pupils are round and equally reacting to light. EOMI. No scleral icterus. No conjunctival pallor. Normocephalic, atraumatic. No pharyngeal erythema. No thyromegaly. CARDIOVASCULAR: S1 and S2 present. No murmurs, rubs, or gallops. PULMONARY: Chest is clear to auscultation, no wheezing or crackles. ABDOMEN: Soft, nontender, nondistended, normoactive bowel sounds. No palpable organomegaly. Midline abdominal wound is healing and dressing is in place. Right lower ileostomy with back empty MUSCULOSKELETAL: No joint swelling or deformity. EXTREMITIES: No cyanosis, clubbing, or pedal edema. NEUROLOGICAL: Gross neurological examination did not reveal any focal deficits. SKIN: No rashes. no petechiae. - Labs CBC & Chem 7: 06/25/21 14:40 06/26/21 06:04 Labs: Abnormal Lab Results - Last 24 Hours (Table) 06/24/21 06/25/21 06/25/21 Range/Units 07:21 11:41 14:40 RBC 2.29 L (4.30-5.90) m/uL Hgb 6.8 L* (13.0-17.5) gm/dL Hct 22.2 L (39.0-53.0) % MCHC 30.7 L (31.0-37.0) g/dL RDW 17.2 H (11.5-15.5) % Lymphocytes # 0.5 L (1.0-4.8) k/uL Sodium (137-145) mmol/L Potassium (3.5-5.1) mmol/L Glucose (74-99) mg/dL POC Glucose (mg/dL) 145 H (75-99) mg/dL Calcium (8.4-10.2) mg/dL Crossmatch See Detail 06/25/21 06/26/21 06/26/21 Range/Units 18:51 00:31 06:04 RBC (4.30-5.90) m/uL Hgb (13.0-17.5) gm/dL Hct (39.0-53.0) % MCHC (31.0-37.0) g/dL RDW (11.5-15.5) % Lymphocytes # (1.0-4.8) k/uL Sodium 131 L (137-145) mmol/L Potassium 3.2 L (3.5-5.1) mmol/L Glucose 137 H (74-99) mg/dL POC Glucose (mg/dL) 100 H 126 H (75-99) mg/dL Calcium 7.4 L (8.4-10.2) mg/dL Crossmatch 06/26/21 Range/Units 06:17 RBC (4.30-5.90) m/uL Hgb (13.0-17.5) gm/dL Hct (39.0-53.0) % MCHC (31.0-37.0) g/dL RDW (11.5-15.5) % Lymphocytes # (1.0-4.8) k/uL Sodium (137-145) mmol/L Potassium (3.5-5.1) mmol/L Glucose (74-99) mg/dL POC Glucose (mg/dL) 131 H (75-99) mg/dL Calcium (8.4-10.2) mg/dL Crossmatch Microbiology - Last 24 Hours (Table) 06/22/21 05:49 Blood Culture - Preliminary Blood No Growth after 96 hours Assessment and Plan Assessment: -Bowel perforation had ileus on admission. Status post laparotomy and small bowel resection, right colectomy ileostomy . Patient is presently on Zosyn -History of Crohn's disease status post redo colectomy a few weeks ago -Leukocytosis secondary to sepsis, bowel perforation wound cultures are showing gram-negative bacilli this is from the surgical wound from his previous surgery improving patient is presently on Zosyn won't cultures are showing E. coli
[2021-06-26] MEDS: 1: MVI, ADULT NO.4 WITH VIT K 10 ML, TRACE (CONC-1ML/DOSE) 1 ML, SODIUM CHLORIDE 4MEQ/ML IV SCH ×5 (18:25)
[2021-06-26 19:02] LABS: Anisocytosis Slight; HCT 23.2 % (39.0-53.0); HGB 7.2 gm/dL (13.0-17.5); Hypochromasia Marked; MCH 30.3 pg (25.0-35.0); MCHC 31.1 g/dL (31.0-37.0); MCV 97.3 fL (80.0-100.0); Macrocytosis Slight; Mean Platelet Volume 7.3; Platelet Count 227 k/uL (150-450); RBC 2.38 m/uL (4.30-5.90); RDW 17.2 % (11.5-15.5); WBC 6.1 k/uL (3.8-10.6)
[2021-06-26 23:47] LABS: Glucose,Whole Blood 133 mg/dL (75-99)
[2021-06-27] MEDS: HYDROmorphone 1 MG/ML 1 ML SYRINGE IVP PRN ×5 (01:50→23:22)
[2021-06-27] MEDS: 1: MVI, ADULT NO.4 WITH VIT K 10 ML, TRACE (CONC-1ML/DOSE) 1 ML, SODIUM CHLORIDE 4MEQ/ML IV SCH ×10 (05:31→12:24)
[2021-06-27 05:37] LABS: Glucose,Whole Blood 134 mg/dL (75-99)
[2021-06-27] MEDS: INSULIN ASPART (NovoLOG) 100 UNIT/ML VIAL SQ SCH ×4 (06:07→23:40)
[2021-06-27 06:09] LABS: Magnesium 1.9 mg/dL (1.6-2.3); Phosphorus 3.5 mg/dL (2.5-4.5)
[2021-06-27] MEDS: ENOXAPARIN 40 MG/0.4 ML SYRINGE SQ SCH (08:21)
[2021-06-27] MEDS: PANTOPRAZOLE 40 MG TABLET PO SCH (08:21)
[2021-06-27] MEDS: PIPERACILLIN-TAZOBACTAM 3.375 GM in SODIUM CHLORIDE 0.9% 100 ML IVPB SCH ×3 (08:22→23:41)
[2021-06-27 09:17] LABS: African American GFR (CKD) 144.7 (60.0-200.0); Anion Gap 8.9 mmol/L (10.00-18.00); BUN/Creat Ratio 21.33 Ratio (12.00-20.00); Blood Urea Nitrogen 12.8 mg/dL (9.0-27.0); Calcium 7.6 mg/dL (8.7-10.3); Carbon Dioxide 26.1 mmol/L (20.0-27.5); Non-African American GFR(CKD) 124.9 (60.0-200.0); Potassium 3.7 mmol/L (3.5-5.5)
[2021-06-27 09:29] LABS: Basophils # (A) 0.01 X 10*3/uL (0.00-0.10); Basophils % (A) 0.2 %; Eosinophils # (A) 0.09 X 10*3/uL (0.04-0.35); Eosinophils % (A) 1.4 %; HCT 21.1 % (39.6-50.0); HGB 6.4 g/dL (13.0-17.0); Immature Grans, Automated 1.8 %; Lymphocytes # (A) 0.64 X 10*3/uL (0.90-5.00); Lymphocytes % (A) 9.8 %; MCH 29.1 pg (27.0-32.0); MCHC 30.3 g/dL (32.0-37.0); MCV 95.9 fL (80.0-97.0); Mean Platelet Volume 9.5 fL (9.5-12.2); Monocytes # (A) 0.33 X 10*3/uL (0.20-1.00); Monocytes % (A) 5.1 %; NRBC Per 100 WBC 0 /100 WBCS (0.0-0.0); Neutrophils # (A) 5.31 X 10*3/uL (1.80-7.70); Neutrophils % (A) 81.7 %; Platelet Count 216 X 10*3/uL (140-440)
[2021-06-27] MEDS ORDERED: POTASSIUM CHLORIDE 20 MEQ in WATER FOR INJECTION 1 100ML.BAG IVPB ONE (11:30)
--- NOTE | 2021-06-27 13:47 | P.PN ---
Subjective Progress Note Date: 06/27/21 Principal diagnosis: abd sepsis This is a 41-year-old white male patient who was recently hospitalized From 05/25/2021 through 06/09/2021 for acute abdomen related to abscess formation and perforation with pneumoperitoneum, and acute COVID-19 related to pneumonia. During his stay patient underwent right colectomy, resection of terminal ileum and end to end anastomosis by Dr. Marsh. He required ICU admission, IV antibiotics, patient was successfully weaned and extubated, she was started on oral feedings, she is doing very well, and following his discharge he went to npatient rehab. On 06/19/2021 patient came into the emergency department with complaints of abdominal pain, purulent drainage from his abdominal incision. Poor appetite. No complaints of nausea or vomiting, no diarrhea or constipation, no fever or chills. Patient was recently discharged from the inpatient rehab and was at home for the past few days. His abdominal and pelvic CT showed dilated small bowel suggestive of severe ileus or distal mechanical small bowel obstruction, previous surgery at the cecum, there was clearing of the pneumoperitoneum, there was improvement in the infiltrates at the lung bases. Patient was taken to surgery on the 06/19/2021 for evidence of perforated viscus and abdominal fascial dehiscence, and underwent exploratory laparotomy, small bowel resection, right colectomy and ileostomy by Dr. Marsh. Patient returned intubated and sedated on mechanical ventilator after surgery to the intensive care unit, he was given a liter bolus in the ICU, she is tachycardic, but not requiring any vasopressor support, low-grade fever this morning, he is currently on assist control mode of ventilation with a rate of 14, tidal volume 600, FiO2 of 40% and PEEP of 8, despite blood gas shows pO2 of 158, pCO2 29, and pH of 7.39 this was done and the above-mentioned event settings. He is currently sedated with Diprivan at 50 mics per kilo per minute, and 0.9 normal saline at a rate of 150 ML per hour, he is urine output is quite dark and scant. She will be given additional fluid boluses. She is currently on Zosyn, his wound cultures are growing gram-negative bacilli. Chest x-ray this morning shows persistent but improving basilar infiltrates and or atelect asis. Today's lab work is been reviewed, showing white blood cell count of 22, hemoglobin of 10.3, sodium is 132, potassium is 5.9, chloride is 107, CO2 is 16, B1 is 22, creatinine is 1.05. His total bilirubin is 2.3, LFTs were within normal limits. His mid abdominal incision is covered with surgical dressing, his right abdominal colostomy has not produced any stool or gas. Bowel sounds are absent. Patient is waking up, not following command, does not appear to be in any acute distress. On 06/23/2021 patient seen in follow-up in intensive care unit, he was successfully weaned and extubated from the mechanical ventilator yesterday, doing very well today, he is currently on 5 L of oxygen pulse ox is 97%, breathing comfortably, he is awake and alert, oriented 3, his postoperative surgical pain is reasonably well controlled. Denies any acute complaints other than being thirsty. Patient has been nothing by mouth. Vital signs have been stable, no fever or chills, today's chest x-ray has been reviewed showing mild retrocardiac infiltrate, correlate for atelectasis and pneumonia. Today's labs have been reviewed, white blood cell count is improved and is down to 10.9, hemoglobin is 7.3 possibly dilutional, platelet count is 242, sodium is 135, potassium is 4.4, chloride is 110, CO2 is 18, BUN is 24, creatinine 0.81. Blood culture has shown no growth, wound culture was positive for E. coli, patient is on Zosyn for antibiotic coverage, his abdominal incision is clean dry and intact, his right abdominal ileostomy starting to produce small amount of liquid stool. Bowel sounds are still very hypoactive, Wheeler catheter is in place, urine output has been in the order of 45-60 mL. On 06/27/2021 patient seen in follow-up on medical surgical floor, he is awake and alert, currently working with physical therapy, he sitting up on the edge of the bed, he is getting ready to get into the recliner. Vision is currently in moderate to severe distress from a incisional pain in response to activity. But breathing comfortably, and denies any acute respiratory distress. 2 L of oxygen his pulse ox is 99%, his been afebrile, hemodynamically has been stable. His last chest x-ray on 06/25/2021 showed poor inspiratory effort no definite lung infiltrates. Right arm PICC line is in place, patient was started on TPN. Abdominal incision was not examined related to the patient having abdominal binder, and per his request related to acute pain and working with therapy. Mentation is appropriate, is awake and alert, oriented 3 today's labs have been reviewed, white blood cell count is 6.5, hemoglobin today is 6.4, electrolytes are within normal limits, BUN is 12.8, creatinine is 0.6. Patient's abdominal wound cultures are showing anaerobic gram-negative bacilli, and E. coli, blood cultures have shown no growth, currently patient remains on Zosyn for antibiotic coverage. Patient has also been started on full liquid diet Objective - Vital Signs Vital signs: Vital Signs Temp 98.5 F 06/27/21 08:00 Pulse 89 06/27/21 08:00 Resp 16 06/27/21 08:00 BP 135/82 06/27/21 08:00 Pulse Ox 99 06/27/21 08:00 Intake & Output 06/26/21 06/27/21 06/27/21 18:59 06:59 18:59 Intake Total 2399 Output Total 2250 2070 100 Balance -2250 329 -100 Intake: IV 1400 Piperacillin-Tazobactam 3 200 .375 gm In Sodium Chloride 0.9% 100 ml @ 25 mls/hr IVPB Q8HR [facility] Rx# :[id number] Sodium Chloride 0.9% 1, 200 000 ml @ 100 mls/hr IV . Q10H [facility] Rx#:[id number] TPN 1000 Intake, IV Titration 999 Amount Sodium Chloride 4Meq/ml 999 Vial 24 meq Potassium Chloride 30 meq In Amino Acid 5%-D20w+Lytes*E* 1, 000 ml @ 90 mls/hr IV .BY DURATION [facility] Rx#: [id number] Output: Drainage 20 Abdomen 20 Urine 1500 1800 Stool 750 250 100 Other: Voiding Method Urinal Urinal - Exam GENERAL EXAM: Awake and alert and oriented 3, 41-year-old white male, 2 L of oxygen resting comfortably, with a pulse ox of 99% comfortable in no apparent distress. HEAD: Normocephalic/atraumatic. EYES: Normal reaction of pupils, equal size. Conjunctiva pink, sclera white. NOSE: Clear with pink turbinates. THROAT: No erythema or exudates. NECK: No masses, no JVD, no thyroid enlargement, no adenopathy. CHEST: No chest wall deformity. Symmetrical expansion. LUNGS: Equal air entry with no crackles, wheeze, rhonchi or dullness. CVS: Regular rate and rhythm, normal S1 and S2, no gallops, no murmurs, no rubs ABDOMEN: Soft, nontender. No hepatosplenomegaly, hypoactive bowel sounds, no guarding or rigidity. At abdominal incision is clean dry and intact, right abdominal ileostomy in place, with small amount of liquid brown stool, ADRIAN drain in the right abdomen with small amount of serosanguineous output compressed and draining EXTREMITIES: No clubbing, no edema, no cyanosis, 2+ pulses and upper and lower extremities. MUSCULOSKELETAL: Muscle strength and tone normal. SPINE: No scoliosis or deformity SKIN: No rashes CENTRAL NERVOUS SYSTEM: Alert and oriented -3. No focal deficits, tone is n ormal in all 4 extremities. PSYCHIATRIC: Alert and oriented -3. Appropriate affect. Intact judgment and insight. - Labs CBC & Chem 7: 06/27/21 05:27 06/27/21 05:27 Labs: Abnormal Lab Results - Last 24 Hours (Table) 06/26/21 06/26/21 06/27/21 Range/Units 18:37 23:45 05:27 RBC 2.38 L (4.30-5.90) m/uL Hgb 7.2 L (13.0-17.5) gm/dL Hct 23.2 L (39.0-53.0) % MCHC (32.0-37.0) g/dL RDW 17.2 H (11.5-15.5) % Immature Gran # (0.00-0.04) X 10*3/uL Lymphocytes # (0.90-5.00) X 10*3/uL Anion Gap 8.90 L (10.00-18.00) mmol/L BUN/Creatinine Ratio 21.33 H (12.00-20.00) Ratio Glucose 125 H (70-110) mg/dL POC Glucose (mg/dL) 133 H (75-99) mg/dL Calcium 7.6 L (8.7-10.3) mg/dL Crossmatch 06/27/21 06/27/21 06/27/21 Range/Units 05:27 05:35 11:20 RBC 2.20 L (4.30-5.90) m/uL Hgb 6.4 L* (13.0-17.5) gm/dL Hct 21.1 L (39.0-53.0) % MCHC 30.3 L (32.0-37.0) g/dL RDW 18.0 H (11.5-15.5) % Immature Gran # 0.12 H (0.00-0.04) X 10*3/uL Lymphocytes # 0.64 L (0.90-5.00) X 10*3/uL Anion Gap (10.00-18.00) mmol/L BUN/Creatinine Ratio (12.00-20.00) Ratio Glucose (70-110) mg/dL POC Glucose (mg/dL) 134 H (75-99) mg/dL Calcium (8.7-10.3) mg/dL Crossmatch See Detail Microbiology - Last 24 Hours (Table) 06/22/21 05:49 Blood Culture - Preliminary Blood No Growth after 120 hours Assessment and Plan Plan: Assessment: #1. Abdominal fascial dehiscence, perforated small bowel, intra-abdominal abscess, status post exploratory laparotomy, small bowel resection, right colectomy and ileostomy on 06/21/2021. #2. Routine postoperative ventilator management. Patient was successfully weaned and extubated on 06/22/2021, tolerating extubation well so far. #3. Recent history of ileal colectomy and washout of peritoneal abscess on 05/28/2021 #4. Recent COVID-19 related pneumonia #5. Crohn's disease with abscess status post ileocolectomy and peritoneal abscess washout #6. Generalized weakness #7. Ileus #8. Leukocytosis, related to intra-abdominal abscess, patient is covered with Zosyn, wound culture was positive for E. coli and anaerobic organisms, leukocytosis is currently resolved, patient remains on Zosyn #9. Previous episode of A. fib with RVR during previous admission, currently in sinus mechanism Plan: Patient has been stable from pulmonary perspective Remains on 2 L of oxygen, his last chest x-ray showed no acute pulmonary process Continue encouraging incentive spirometry use, deep breathing and coughing Antibiotics per ID service recommendations Increase activity as tolerated Patient is participating with physical therapy Dietary recommendation per surgery I performed a history & physical examination of the patient and discussed their management with my nurse practitioner, Ирина Woods. I reviewed the nurse practitioner's note and agree with the documented findings and plan of care. Lung sounds are positive for diminished breath sounds throughout the lung moran. The findings and the impression was discussed with the patient. I attest to the documentation by the nurse practitioner. Time with Patient: Less than 30
[2021-06-27] MEDS: SODIUM CHLORIDE 0.9% 1,000 ML IV SCH ×2 (15:23→19:48)
--- NOTE | 2021-06-27 15:51 | P.PN ---
Subjective Progress Note Date: 06/27/21 CHIEF COMPLAINT: Drainage from abdominal incision HISTORY OF PRESENT ILLNESS: Patient is status post exploratory laparotomy, small bowel resection, right colectomy with ileostomy for abdominal fascial dehi scence, perforated small bowel and intra-abdominal abscess. Postop day #6. Patient is currently a MedSurg floor. He reports that his pain is controlled. His ileostomy is functioning with air and stool. He has been advanced to a full liquid diet over the weekend. He denies any vomiting. He does have some nausea. He's scheduled to work with physical therapy today. His hemoglobin has dropped from 7.2-6.4 and he'll receive 1 unit of blood. Afebrile. Heart rate 89 WBC is 6.50 hemoglobin 6.4 platelets 216 sodium 136 potassium 3.7 creatinine 0.6 Patient seen and examined with Dr. steen PHYSICAL EXAM: VITAL SIGNS: Reviewed. GENERAL: Well-developed in no acute distress. HEENT: No sclera icterus. Extraocular movements grossly intact. Moist buccal mucosa. Head is atraumatic, normocephalic. ABDOMEN: Soft. Nondistended. Ileostomy brown stool. Incisional dressing clean dry and intact NEUROLOGIC: Alert and oriented. Cranial nerves II through XII grossly intact. ASSESSMENT: 1. 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 Ileus resolved 3. Crohn's disease with abscess status post ileocolectomy and washout of peritoneal abscess on 05/28/2021 4. Generalized weakness 5. Anemia likely dilutional from IV fluids PLAN: -1 unit of packed red blood cells ordered for hemoglobin of 6.4 -Continue full liquid diet -Start weaning patient off of TPN -Continue to monitor hemoglobin -Encouraged patient to increase activity -Continue local wound care -Continue supportive care -Continue IV fluids -Continue antibiotics -Continue pain medication as needed -Incentive spirometer ordered -DVT prophylaxis Lovenox and GI prophylaxis Protonix Physician Pmo Analyst note has been reviewed by physician. Signing provider agrees with the documented findings, assessment, and plan of care. Objective - Vital Signs Vital signs: Vital Signs Temp 98.5 F 06/27/21 08:00 Pulse 89 06/27/21 08:00 Resp 16 06/27/21 08:00 BP 135/82 06/27/21 08:00 Pulse Ox 99 06/27/21 08:00 Intake & Output 06/26/21 06/27/21 06/27/21 18:59 06:59 18:59 Intake Total 2399 Output Total 2249 2069 Balance -2249 329 Intake: IV 1400 Piperacillin-Tazobactam 3 200 .375 gm In Sodium Chloride 0.9% 100 ml @ 25 mls/hr IVPB Q8HR [facility] Rx# :[id number] Sodium Chloride 0.9% 1, 200 000 ml @ 100 mls/hr IV . Q10H [facility] Rx#:[id number] TPN 1000 Intake, IV Titration 999 Amount Sodium Chloride 4Meq/ml 999 Vial 24 meq Potassium Chloride 30 meq In Amino Acid 5%-D20w+Lytes*E* 1, 000 ml @ 90 mls/hr IV .BY DURATION [facility] Rx#: [id number] Output: Drainage 20 Abdomen 20 Urine 1500 1800 Stool 750 250 Other: Voiding Method Urinal - Labs CBC & Chem 7: 06/27/21 05:27 06/27/21 05:27 Labs: Abnormal Lab Results - Last 24 Hours (Table) 06/26/21 06/26/21 06/26/21 Range/Units 11:47 18:37 23:45 RBC 2.38 L (4.30-5.90) m/uL Hgb 7.2 L (13.0-17.5) gm/dL Hct 23.2 L (39.0-53.0) % MCHC (32.0-37.0) g/dL RDW 17.2 H (11.5-15.5) % Immature Gran # (0.00-0.04) X 10*3/uL Lymphocytes # (0.90-5.00) X 10*3/uL Anion Gap (10.00-18.00) mmol/L BUN/Creatinine Ratio (12.00-20.00) Ratio Glucose (70-110) mg/dL POC Glucose (mg/dL) 139 H 133 H (75-99) mg/dL Calcium (8.7-10.3) mg/dL 06/27/21 06/27/21 06/27/21 Range/Units 05:27 05:27 05:35 RBC 2.20 L (4.30-5.90) m/uL Hgb 6.4 L* (13.0-17.5) gm/dL Hct 21.1 L (39.0-53.0) % MCHC 30.3 L (32.0-37.0) g/dL RDW 18.0 H (11.5-15.5) % Immature Gran # 0.12 H (0.00-0.04) X 10*3/uL Lymphocytes # 0.64 L (0.90-5.00) X 10*3/uL Anion Gap 8.90 L (10.00-18.00) mmol/L BUN/Creatinine Ratio 21.33 H (12.00-20.00) Ratio Glucose 125 H (70-110) mg/dL POC Glucose (mg/dL) 134 H (75-99) mg/dL Calcium 7.6 L (8.7-10.3) mg/dL Microbiology - Last 24 Hours (Table) 06/22/21 05:49 Blood Culture - Preliminary Blood No Growth after 120 hours
[2021-06-27 17:00] LABS: Glucose,Whole Blood 109 mg/dL (75-99)
--- NOTE | 2021-06-27 20:10 | P.PN ---
Subjective 41-year-old male with history of Crohn's disease and abscess had a ileocolectomy on 05/28/2021 subsequently discharged to [facility] patient rehabitation patient won't cultures during previous hospital physicians showed E. coli and Keke patient to complete the treatment with Augmentin and Diflucan. I did evaluate this patient at [facility] at that time I obtain the cultures as there was concern about new infection in the surgical site area will obtain those cultures, infectious disease evaluated the patient there. Patient was subsequently discharged. came in with the increase the pain and infection of the surgical site area now. Patient had a CT of the abdomen which is concerning for ileus although patient was having normal bowel movements. Patient is hyponatremic. Patient will sugars are highly elevated lower obtain hemoglobin and patient was started on insulin regimen along with sliding scale. 06/21/2021 Patient was evaluated by general surgery and the infectious disease. There is mild area of redness, infectious disease doesn't believe patient has significant superficial infection there is no evidence of abscesses on the CT either although patient may need only back as per infectious disease cultures are pending patient is being can urine Zosyn. 06/22/2021 Patient is found to have pneumoperitoneum later in the day and patient underwent emergent laparotomy. With a small bowel resection and right colectomy and ileostomy. Patient is presently intubated on mechanical ventilator with the assist-control ventilation with respiratory rate of 14 and tidal volume of 6 and FiO2 of 40% PEEP of 8 patient is on propofol for sedation white blood cell count went up to 22,000 from normal white count, colostomy is empty at this time. 06/23/2021 Patient is extubated today patient is presently on 5 L of oxygen is alert awake alert oriented 3 patient White blood cell count has come down. And presently 10,900. Patient has a Wheeler catheter urine output around 50-60 mL per hour. Patient is off pressor support. 06/24/2021 This is a pleasant 41 years old male who was recently discharged from the hospital for intra-abdominal infection presents with incisional infection and abdominal wound dehiscence and he underwent exploratory laparotomy status post right colectomy and small bowel resection with ileostomy and drainage of an abscess. He is covered with Zosyn. Once culture was growing E. coli and an air MICROORGANISMS. Also he is on normal saline. He is awake and alert, not in distress. He is on a clear liquid diet. No nausea vomiting. As mild abdominal pain, no abdominal distention and it makes little bowel movement. Hemoglobin drops 7 down to 6.1 today and he got one unit of blood transfusion and we will check hemoglobin the morning. 06/25/2021 Patient generally doing well, he was transferred to the general medical floor. He tolerates clear liquid diet and it was advanced today. Liquid diet. No vomiting, little expected abdominal pain. He has some loose bowel movement does not look C. diff but to go to check anyway. His hemoglobin was 6.1 yesterday and after 1 unit of blood transfusion went up to 6.6 but because of shortness and supply the couple for transfusion nowadays is 6.5 in this facility. We repeated hemoglobin and is stable at 6.8 and sligh tly improving referral keep monitoring for now. Patient with no overt signs of bleeding currently. Also surgery team on the case. No more fever. Chest x-ray showing no definite lung capacity per radiologist. Remains on Zosyn and normal saline at 100 mL per hour. Also TPN 06/26/2021 Patient with infected incisional wound and possible deep intra-abdominal infection and his been treated with Zosyn and improving gradually. He has no abdominal pain, he is tolerating his full liquid diet well. No vomiting. He has some loose bowel movement. He remains on TPN. Wheeler catheter is discontinue it and we are checking bladder scan We'll check C. diff although suspicion is low Patient himself feels better and he looks pleased with the dissection of his illness going to. All his questions answered 06/27/2021 Patient awake and alert and hemodynamically stable however his hemoglobin was low at 6.4 and received one unit of blood transfusion. Other than that her medicine TPN which is started to be tapered down by surgery team and the meantime he remains on liquid diet per surgery team. Colostomy back was showing some brown stool although still loose but not liquid as before. Looks like patient improving gradually. He remains on Zosyn. Objective - Vital Signs Vital signs: Vital Signs Temp 98.5 F 06/27/21 08:00 Pulse 89 06/27/21 08:00 Resp 16 06/27/21 08:00 BP 135/82 06/27/21 08:00 Pulse Ox 99 06/27/21 08:00 Intake & Output 06/26/21 06/27/21 06/27/21 18:59 06:59 18:59 Intake Total 2399 Output Total 2250 2070 100 Balance -2250 329 -100 Intake: IV 1400 Piperacillin-Tazobactam 3 200 .375 gm In Sodium Chloride 0.9% 100 ml @ 25 mls/hr IVPB Q8HR [facility] Rx# :[id number] Sodium Chloride 0.9% 1, 200 000 ml @ 100 mls/hr IV . Q10H [facility] Rx#:[id number] TPN 1000 Intake, IV Titration 999 Amount Sodium Chloride 4Meq/ml 999 Vial 24 meq Potassium Chloride 30 meq In Amino Acid 5%-D20w+Lytes*E* 1, 000 ml @ 90 mls/hr IV .BY DURATION [facility] Rx#: [id number] Output: Drainage 20 Abdomen 20 Urine 1500 1800 Stool 750 250 100 Other: Voiding Method Urinal Urinal - Exam GENERAL: The patient is alert and oriented x3, not in any acute distress. Well developed, well nourished. HEENT: Pupils are round and equally reacting to light. EOMI. No scleral icterus. No conjunctival pallor. Normocephalic, atraumatic. No pharyngeal erythema. No thyromegaly. CARDIOVASCULAR: S1 and S2 present. No murmurs, rubs, or gallops. PULMONARY: Chest is clear to auscultation, no wheezing or crackles. ABDOMEN: Soft, nontender, nondistended, normoactive bowel sounds. No palpable organomegaly. Midline abdominal wound is healing and dressing is in place. Right lower ileostomy with back empty MUSCULOSKELETAL: No joint swelling or deformity. EXTREMITIES: No cyanosis, clubbing, or pedal edema. NEUROLOGICAL: Gross neurological examination did not reveal any focal deficits. SKIN: No rashes. no petechiae. - Labs CBC & Chem 7: 06/27/21 05:27 06/27/21 05:27 Labs: Abnormal Lab Results - Last 24 Hours (Table) 06/26/21 06/26/21 06/27/21 Range/Units 18:37 23:45 05:27 RBC 2.38 L (4.30-5.90) m/uL Hgb 7.2 L (13.0-17.5) gm/dL Hct 23.2 L (39.0-53.0) % MCHC (32.0-37.0) g/dL RDW 17.2 H (11.5-15.5) % Immature Gran # (0.00-0.04) X 10*3/uL Lymphocytes # (0.90-5.00) X 10*3/uL Anion Gap 8.90 L (10.00-18.00) mmol/L BUN/Creatinine Ratio 21.33 H (12.00-20.00) Ratio Glucose 125 H (70-110) mg/dL POC Glucose (mg/dL) 133 H (75-99) mg/dL Calcium 7.6 L (8.7-10.3) mg/dL Crossmatch 06/27/21 06/27/21 06/27/21 Range/Units 05:27 05:35 11:20 RBC 2.20 L (4.30-5.90) m/uL Hgb 6.4 L* (13.0-17.5) gm/dL Hct 21.1 L (39.0-53.0) % MCHC 30.3 L (32.0-37.0) g/dL RDW 18.0 H (11.5-15.5) % Immature Gran # 0.12 H (0.00-0.04) X 10*3/uL Lymphocytes # 0.64 L (0.90-5.00) X 10*3/uL Anion Gap (10.00-18.00) mmol/L BUN/Creatinine Ratio (12.00-20.00) Ratio Glucose (70-110) mg/dL POC Glucose (mg/dL) 134 H (75-99) mg/dL Calcium (8.7-10.3) mg/dL Crossmatch See Detail Microbiology - Last 24 Hours (Table) 06/22/21 05:49 Blood Culture - Preliminary Blood No Growth after 120 hours Assessment and Plan Assessment: -Bowel perforation had ileus on admission. Status post laparotomy and small bowel resection, right colectomy ileostomy . Patient is presently on Zosyn -History of Crohn's disease status post redo colectomy a few weeks ago -Leukocytosis secondary to sepsis, bowel perforation wound cultures are showing gram-negative bacilli this is from the surgical wound from his previous surgery improving patient is presently on Zosyn won't cultures are showing E. coli
--- NOTE | 2021-06-27 21:48 | P.PN ---
Subjective Progress Note Date: 06/27/21 Principal diagnosis: Abdominal wound infection Patient is 41 year male with a past medical history significant for Crohn's disease in this patient who recently did have a laparotomy for abdominal abscess, no readmitted to the hospital with abdominal pain and concern for abdominal wound dehiscence and possible infection. Patient was taken to the OR 06/21/2021 patient is status post laparotomy right colectomy and ileostomy and drainage of abdominal abscess On today's evaluation that is 06/27/2021, the patient denies any fever or any chills, the patient is breathing comfortably on 2 L nasal cannula oxygen, the patient abdominal pain is currently controlled, the patient denies nausea no vomiting no chest pain shortness of breath or cough , patient was noticed to have drop in hemoglobin and is getting a blood transfusion Objective - Vital Signs Vital signs: Vital Signs Temp 98.4 F 06/27/21 19:47 Pulse 85 06/27/21 19:47 Resp 16 06/27/21 19:47 BP 126/74 06/27/21 19:47 Pulse Ox 96 06/27/21 19:47 Intake & Output 06/27/21 06/27/21 06/28/21 06:59 18:59 06:59 Intake Total 2399 1770 Output Total 2070 105 Balance 329 1665 Weight 118.8 kg Intake: IV 1400 810 Piperacillin-Tazobactam 3 200 110 .375 gm In Sodium Chloride 0.9% 100 ml @ 25 mls/hr IVPB Q8HR [facility] Rx# :[id number] Sodium Chloride 0.9% 1, 200 000 ml @ 100 mls/hr IV . Q10H [facility] Rx#:[id number] TPN 1000 700 Intake, IV Titration 999 Amount Sodium Chloride 4Meq/ml 999 Vial 24 meq Potassium Chloride 30 meq In Amino Acid 5%-D20w+Lytes*E* 1, 000 ml @ 90 mls/hr IV .BY DURATION [facility] Rx#: [id number] Oral 650 Blood Product 310 Rc As-1 Unit 310 [id number] Output: Drainage 20 5 Abdomen 20 5 Urine 1800 Stool 250 100 Other: Voiding Method Urinal Urinal Urinal - Exam GENERAL DESCRIPTION:[ Patient is awake and alert in no distress] HEENT: [Oral mucosa is dry and no pharyngeal erythema] RESPIRATORY SYSTEM: [Unlabored breathing decreased. The base] CARDIA VASCULAR SYSTEM: [S1-S2 regular rate and rhythm no murmur] GI: [Abdominal soft no significant tenderness EXTREMITIES: [No edema feet] - Labs CBC & Chem 7: 06/27/21 05:27 06/27/21 05:27 Labs: Abnormal Lab Results - Last 24 Hours (Table) 06/26/21 06/27/21 06/27/21 Range/Units 23:45 05:27 05:27 RBC 2.20 L (4.40-5.60) X 10*6/uL Hgb 6.4 L* (13.0-17.0) g/dL Hct 21.1 L (39.6-50.0) % MCHC 30.3 L (32.0-37.0) g/dL RDW 18.0 H (11.5-14.5) % Immature Gran # 0.12 H (0.00-0.04) X 10*3/uL Lymphocytes # 0.64 L (0.90-5.00) X 10*3/uL Anion Gap 8.90 L (10.00-18.00) mmol/L BUN/Creatinine Ratio 21.33 H (12.00-20.00) Ratio Glucose 125 H (70-110) mg/dL POC Glucose (mg/dL) 133 H (75-99) mg/dL Calcium 7.6 L (8.7-10.3) mg/dL Crossmatch 06/27/21 06/27/21 06/27/21 Range/Units 05:35 11:20 16:58 RBC (4.40-5.60) X 10*6/uL Hgb (13.0-17.0) g/dL Hct (39.6-50.0) % MCHC (32.0-37.0) g/dL RDW (11.5-14.5) % Immature Gran # (0.00-0.04) X 10*3/uL Lymphocytes # (0.90-5.00) X 10*3/uL Anion Gap (10.00-18.00) mmol/L BUN/Creatinine Ratio (12.00-20.00) Ratio Glucose (70-110) mg/dL POC Glucose (mg/dL) 134 H 109 H (75-99) mg/dL Calcium (8.7-10.3) mg/dL Crossmatch See Detail Microbiology - Last 24 Hours (Table) 06/22/21 05:49 Blood Culture - Preliminary Blood No Growth after 120 hours Assessment and Plan (1) Incisional infection Current Visit: Yes Status: Acute Code(s): T81.49XA - INFECTION FOLLOWING A PROCEDURE, OTHER SURGICAL SITE, INIT SNOMED Code(s): 12117038 Plan: 1-patient admitted to the hospital with abdominal pain with abdominal incision dehiscence and concern for possible deep infection, and this patient who is status post exploratory laparotomy status post right colectomy and small bowel resection ileostomy and drainage of the abscess, no OR cultures were done superficial abdominal cultures showed E. coli and anaerobes, patient is currently covered with Zosyn to continue and monitor his clinical course closely Time with Patient: Less than 30
[2021-06-27 23:03] LABS: Anisocytosis Slight; Basophils % (A) 0 %; Eosinophils # (A) 0.1 k/uL (0-0.7); Eosinophils % (A) 1 %; HCT 27.7 % (39.0-53.0); Hypochromasia Slight; Lymphocytes # (A) 0.8 k/uL (1.0-4.8); Lymphocytes % (A) 10 %; MCH 30.5 pg (25.0-35.0); MCHC 32.4 g/dL (31.0-37.0); MCV 94.3 fL (80.0-100.0); Mean Platelet Volume 7.5; Monocytes # (A) 0.4 k/uL (0-1.0); Monocytes % (A) 6 %; Neutrophils # (A) 6.5 k/uL (1.3-7.7); Neutrophils % (A) 81 %; Platelet Count 266 k/uL (150-450); Poikilocytosis Slight; RBC 2.94 m/uL (4.30-5.90); RDW 16.6 % (11.5-15.5); WBC 8.1 k/uL (3.8-10.6)
[2021-06-27 23:44] LABS: Glucose,Whole Blood 88 mg/dL (75-99)
[2021-06-28] MEDS: SODIUM CHLORIDE 0.9% 1,000 ML IV SCH ×2 (01:55→17:21)
[2021-06-28] MEDS: HYDROmorphone 1 MG/ML 1 ML SYRINGE IVP PRN ×5 (03:57→20:29)
[2021-06-28 05:36] LABS: Glucose,Whole Blood 100 mg/dL (75-99)
[2021-06-28] MEDS: INSULIN ASPART (NovoLOG) 100 UNIT/ML VIAL SQ SCH ×3 (05:38→17:20)
[2021-06-28] MEDS: ENOXAPARIN 40 MG/0.4 ML SYRINGE SQ SCH (09:27)
[2021-06-28] MEDS: PANTOPRAZOLE 40 MG TABLET PO SCH (09:27)
[2021-06-28] MEDS: PIPERACILLIN-TAZOBACTAM 3.375 GM in SODIUM CHLORIDE 0.9% 100 ML IVPB SCH ×2 (09:29→16:09)
[2021-06-28 09:48] LABS: African American GFR (CKD) >90 (>60 ml/min/1.73 sqM); Anion Gap 4 mmol/L; Blood Urea Nitrogen 12 mg/dL (9-20); Calcium 7.7 mg/dL (8.4-10.2); Carbon Dioxide 27 mmol/L (22-30); Chloride 101 mmol/L (98-107); Glucose 94 mg/dL (74-99); Non-African American GFR(CKD) >90 (>60 ml/min/1.73 sqM); Potassium 3.9 mmol/L (3.5-5.1); Sodium 132 mmol/L (137-145)
--- NOTE | 2021-06-28 11:21 | P.CONS ---
History of Present Illness - Reason for Consult Consult date: 06/28/21 wound care - History of Present Illness This is a 41-year-old patient being seen for a nonhealing ulceration to the left buttocks. Patient has a stage II pressure ulcer to the left buttocks which was there prior to hospitalization. Ulceration measures were 1.2 x 2 x 0.1 cm with fat layer exposure. The wound bed shows granulation with minimal slough. Wound edges are attached to the wound base. Patient does complain of increased pain to the site. Review Of Systems: Constitutional: No fever, no chills, no night sweats. No weight change. No weakness, fatigue or lethargy. No daytime sleepiness. Integumentary:reports wounds, no lesions. No rash or pruritus. No unusual bruising. No change in hair or nails. Physical exam: General Appearance: Alert, cooperative, no distress, appears stated age. Skin: See HPI all other Skin color, texture, tugor normal, no rashes or lesions. Neurologic: Alert oriented x3 Assessment: 1. Pressure ulcer stage II left buttocks Plan: 1. Apply honey gel and border foam to the site. Utilize an air-filled cushion when sitting. Turn patient every 2 hours. Thank you for the consultation any questions contact the wound care center DNP note has been reviewed and discussed with Dr. Porter and the impression and plan of care has been directed as dictated. Past Medical History Past Medical History: No Reported History Additional Past Medical History / Comment(s): Recently had surgery for chron's with peritoneal abscess, covid + 05/17/21. History of Any Multi-Drug Resistant Organisms: None Reported Past Surgical History: Hernia Repair Additional Past Surgical History / Comment(s): 05/28/21 ileocolectomy with washout pf pertioneal abscess, R inguinal hernia repair. Past Anesthesia/Blood Transfusion Reactions: No Reported Reaction Past Psychological History: No Psychological Hx Reported Smoking Status: Former smoker Past Alcohol Use History: Occasional Past Drug Use History: None Reported - Past Family History Father Family Medical History: No Reported History Additional Family Medical History / Comment(s): Father is healthy Mother Family Medical History: Eye Disorder Additional Family Medical History / Comment(s): Mother has glaucoma Medications and Allergies Home Medications Medication Instructions Recorded Confirmed Type Albuterol Sulfate [Albuterol 2 puff PO RT-Q6H PRN 06/19/21 06/19/21 History Sulfate Hfa] Ascorbic Acid [Vitamin C] 500 mg PO DAILY 06/19/21 06/19/21 History Cephalexin [Keflex] 500 mg PO Q6HR #40 cap 06/19/21 Rx Cholecalciferol [Vitamin D3 (25 50 mcg PO DAILY 06/19/21 06/19/21 History Mcg = 1000 Iu)] Sulfamethoxazole/Trimethoprim 1 each PO BID #20 tablet 06/19/21 Rx [Bactrim DS 800-160 mg] Zinc 50 mg PO DAILY 06/19/21 06/19/21 History traMADol HCl [Ultram] 50 mg PO Q6HR PRN 06/19/21 06/19/21 History Allergies Allergy/AdvReac Type Severity Reaction Status Date / Time acetaminophen [From Tylenol] Allergy Chest Pain Verified 05/25/21 21:37 Physical Exam Vitals: Vital Signs Temp Pulse Pulse Resp BP BP Pulse Ox 06/28/21 02:00 98.7 F 87 16 119/78 98 06/27/21 19:47 98.4 F 85 16 126/74 96 06/27/21 17:20 98.5 F 93 16 116/78 99 06/27/21 15:01 97.4 F L 94 15 112/75 99 06/27/21 14:31 97.8 F 93 15 110/75 99 06/27/21 14:21 98.4 F 91 15 116/80 99 Intake and Output 06/27/21 06/28/21 06/28/21 22:59 06:59 14:59 Intake Total 1770 1200 Output Total 10 800 Balance 1760 400 Intake: IV 810 1200 Piperacillin-Tazobactam 3 110 100 .375 gm In Sodium Chloride 0.9% 100 ml @ 25 mls/hr IVPB Q8HR [facility] Rx# :[id number] Sodium Chloride 0.9% 1, 1100 000 ml @ 100 mls/hr IV . Q10H [facility] Rx#:[id number] TPN 700 Oral 650 Blood Product 310 Rc As-1 Unit 310 [id number] Output: Drainage 10 Abdomen 10 Urine 700 Stool 100 Other: Voiding Method Urinal Weight 118.8 kg Results CBC & Chem 7: 06/27/21 22:15 06/28/21 06:44 Labs: Abnormal Lab Results - Last 24 Hours (Table) 06/27/21 06/27/21 06/27/21 Range/Units 11:20 16:58 22:15 RBC 2.94 L (4.30-5.90) m/uL Hgb 9.0 L D (13.0-17.5) gm/dL Hct 27.7 L (39.0-53.0) % RDW 16.6 H (11.5-15.5) % Lymphocytes # 0.8 L (1.0-4.8) k/uL Sodium (137-145) mmol/L Creatinine (0.66-1.25) mg/dL POC Glucose (mg/dL) 109 H (75-99) mg/dL Calcium (8.4-10.2) mg/dL Crossmatch See Detail 06/28/21 06/28/21 Range/Units 05:34 06:44 RBC (4.30-5.90) m/uL Hgb (13.0-17.5) gm/dL Hct (39.0-53.0) % RDW (11.5-15.5) % Lymphocytes # (1.0-4.8) k/uL Sodium 132 L (137-145) mmol/L Creatinine 0.61 L (0.66-1.25) mg/dL POC Glucose (mg/dL) 100 H (75-99) mg/dL Calcium 7.7 L (8.4-10.2) mg/dL Crossmatch Microbiology - Last 24 Hours (Table) 06/22/21 05:49 Blood Culture - Final Blood No Growth after 144 hours Assessment and Plan (1) Stage II pressure ulcer of left buttock Current Visit: Yes Status: Acute Code(s): L89.322 - PRESSURE ULCER OF LEFT BUTTOCK, STAGE 2 SNOMED Code(s): 29456119026791882
[2021-06-28 11:35] LABS: Basophils # (A) 0.01 X 10*3/uL (0.00-0.10); Basophils % (A) 0.1 %; Eosinophils # (A) 0.11 X 10*3/uL (0.04-0.35); Eosinophils % (A) 1.4 %; HCT 25.8 % (39.6-50.0); HGB 7.7 g/dL (13.0-17.0); Immature Grans, Automated 2.1 %; Lymphocytes # (A) 0.72 X 10*3/uL (0.90-5.00); Lymphocytes % (A) 9.3 %; MCH 28.7 pg (27.0-32.0); MCHC 29.8 g/dL (32.0-37.0); MCV 96.3 fL (80.0-97.0); Mean Platelet Volume 9.7 fL (9.5-12.2); Monocytes # (A) 0.38 X 10*3/uL (0.20-1.00); Monocytes % (A) 4.9 %; NRBC Per 100 WBC 0 /100 WBCS (0.0-0.0); Neutrophils # (A) 6.36 X 10*3/uL (1.80-7.70); Neutrophils % (A) 82.2 %; Platelet Count 239 X 10*3/uL (140-440); RBC 2.68 X 10*6/uL (4.40-5.60); RDW 17.9 % (11.5-14.5); WBC 7.74 X 10*3/uL (4.50-10.00)
[2021-06-28 11:36] LABS: Glucose,Whole Blood 118 mg/dL (75-99)
--- NOTE | 2021-06-28 14:28 | P.PN ---
Subjective Progress Note Date: 06/28/21 CHIEF COMPLAINT: Drainage from abdominal incision HISTORY OF PRESENT ILLNESS: Patient is status post exploratory laparotomy, small bowel resection, right colectomy with ileostomy for abdominal fascial dehi scence, perforated small bowel and intra-abdominal abscess. Postop day #7. Patient reports his pain is controlled. He did work with physical therapy yesterday and was able to get out of bed to the chair. His ostomy is functioning. He is tolerating full liquid diet. His TPN has been weaned off. His hemoglobin has gone up from 6.4-9 yesterday. Patient did receive 1 unit of blood yesterday. WBC 7.74 hemoglobin 7.7 today platelets 239 Patient seen and examined with Dr. steen PHYSICAL EXAM: VITAL SIGNS: Reviewed. GENERAL: Well-developed in no acute distress. HEENT: No sclera icterus. Extraocular movements grossly intact. Moist buccal mucosa. Head is atraumatic, normocephalic. ABDOMEN: Soft. Nondistended. Ileostomy brown stool. Incisional dressing clean dry and intact. discharge noted on dressing likely due to the metal honey. ADRIAN drain with serosanguineous output NEUROLOGIC: Alert and oriented. Cranial nerves II through XII grossly intact. ASSESSMENT: 1. 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 Ileus resolved 3. Crohn's disease with abscess status post ileocolectomy and washout of peritoneal abscess on 05/28/2021 4. Generalized weakness 5. Anemia likely dilutional from IV fluids PLAN: -Continue local wound care -Continue full liquid diet -Continue to monitor hemoglobin -Encouraged patient to increase activity -Continue supportive care -Continue IV fluids -Continue antibiotics -Continue pain medication as needed -Incentive spirometer ordered -Encouraged patient to increase activity level -DVT prophylaxis Lovenox and GI prophylaxis Protonix Physician Supervisor [employer] note has been reviewed by physician. Signing provider agrees with the documented findings, assessment, and plan of care. Objective - Vital Signs Vital signs: Vital Signs Temp 98.7 F 06/28/21 02:00 Pulse 87 06/28/21 02:00 Resp 16 06/28/21 02:00 BP 119/78 06/28/21 02:00 Pulse Ox 98 06/28/21 02:00 Intake & Output 06/27/21 06/28/21 06/28/21 18:59 06:59 18:59 Intake Total 1770 1200 Output Total 105 805 800 Balance 1665 395 -800 Weight 118.8 kg Intake: IV 810 1200 Piperacillin-Tazobactam 3 110 100 .375 gm In Sodium Chloride 0.9% 100 ml @ 25 mls/hr IVPB Q8HR [facility] Rx# :[id number] Sodium Chloride 0.9% 1, 1100 000 ml @ 100 mls/hr IV . Q10H [facility] Rx#:[id number] TPN 700 Oral 650 Blood Product 310 Rc As-1 Unit 310 [id number] Output: Drainage 5 5 Abdomen 5 5 Urine 700 800 Stool 100 100 Other: Voiding Method Urinal Urinal # Bowel Movements 3 - Labs CBC & Chem 7: 06/28/21 06:44 06/28/21 06:44 Labs: Abnormal Lab Results - Last 24 Hours (Table) 06/27/21 06/27/21 06/27/21 Range/Units 11:20 16:58 22:15 RBC 2.94 L (4.30-5.90) m/uL Hgb 9.0 L D (13.0-17.5) gm/dL Hct 27.7 L (39.0-53.0) % MCHC (32.0-37.0) g/dL RDW 16.6 H (11.5-15.5) % Immature Gran # (0.00-0.04) X 10*3/uL Lymphocytes # 0.8 L (1.0-4.8) k/uL Sodium (137-145) mmol/L Creatinine (0.66-1.25) mg/dL POC Glucose (mg/dL) 109 H (75-99) mg/dL Calcium (8.4-10.2) mg/dL Crossmatch See Detail 06/28/21 06/28/21 06/28/21 Range/Units 05:34 06:44 06:44 RBC 2.68 L (4.30-5.90) m/uL Hgb 7.7 L (13.0-17.5) gm/dL Hct 25.8 L (39.0-53.0) % MCHC 29.8 L (32.0-37.0) g/dL RDW 17.9 H (11.5-15.5) % Immature Gran # 0.16 H (0.00-0.04) X 10*3/uL Lymphocytes # 0.72 L (1.0-4.8) k/uL Sodium 132 L (137-145) mmol/L Creatinine 0.61 L (0.66-1.25) mg/dL POC Glucose (mg/dL) 100 H (75-99) mg/dL Calcium 7.7 L (8.4-10.2) mg/dL Crossmatch 06/28/21 Range/Units 11:35 RBC (4.30-5.90) m/uL Hgb (13.0-17.5) gm/dL Hct (39.0-53.0) % MCHC (32.0-37.0) g/dL RDW (11.5-15.5) % Immature Gran # (0.00-0.04) X 10*3/uL Lymphocytes # (1.0-4.8) k/uL Sodium (137-145) mmol/L Creatinine (0.66-1.25) mg/dL POC Glucose (mg/dL) 118 H (75-99) mg/dL Calcium (8.4-10.2) mg/dL Crossmatch Microbiology - Last 24 Hours (Table) 06/22/21 05:49 Blood Culture - Final Blood No Growth after 144 hours
[2021-06-28 19:01] LABS: Glucose,Whole Blood 90 mg/dL (75-99)
--- NOTE | 2021-06-28 23:06 | P.PN ---
Subjective 41-year-old male with history of Crohn's disease and abscess had a ileocolectomy on 05/28/2021 subsequently discharged to [facility] patient rehabitation patient won't cultures during previous hospital physicians showed E. coli and Keke patient to complete the treatment with Augmentin and Diflucan. I did evaluate this patient at [facility] at that time I obtain the cultures as there was concern about new infection in the surgical site area will obtain those cultures, infectious disease evaluated the patient there. Patient was subsequently discharged. came in with the increase the pain and infection of the surgical site area now. Patient had a CT of the abdomen which is concerning for ileus although patient was having normal bowel movements. Patient is hyponatremic. Patient will sugars are highly elevated lower obtain hemoglobin and patient was started on insulin regimen along with sliding scale. 06/21/2021 Patient was evaluated by general surgery and the infectious disease. There is mild area of redness, infectious disease doesn't believe patient has significant superficial infection there is no evidence of abscesses on the CT either although patient may need only back as per infectious disease cultures are pending patient is being can urine Zosyn. 06/22/2021 Patient is found to have pneumoperitoneum later in the day and patient underwent emergent laparotomy. With a small bowel resection and right colectomy and ileostomy. Patient is presently intubated on mechanical ventilator with the assist-control ventilation with respiratory rate of 14 and tidal volume of 6 and FiO2 of 40% PEEP of 8 patient is on propofol for sedation white blood cell count went up to 22,000 from normal white count, colostomy is empty at this time. 06/23/2021 Patient is extubated today patient is presently on 5 L of oxygen is alert awake alert oriented 3 patient White blood cell count has come down. And presently 10,900. Patient has a Wheeler catheter urine output around 50-60 mL per hour. Patient is off pressor support. 06/24/2021 This is a pleasant 41 years old male who was recently discharged from the hospital for intra-abdominal infection presents with incisional infection and abdominal wound dehiscence and he underwent exploratory laparotomy status post right colectomy and small bowel resection with ileostomy and drainage of an abscess. He is covered with Zosyn. Once culture was growing E. coli and an air MICROORGANISMS. Also he is on normal saline. He is awake and alert, not in distress. He is on a clear liquid diet. No nausea vomiting. As mild abdominal pain, no abdominal distention and it makes little bowel movement. Hemoglobin drops 7 down to 6.1 today and he got one unit of blood transfusion and we will check hemoglobin the morning. 06/25/2021 Patient generally doing well, he was transferred to the general medical floor. He tolerates clear liquid diet and it was advanced today. Liquid diet. No vomiting, little expected abdominal pain. He has some loose bowel movement does not look C. diff but to go to check anyway. His hemoglobin was 6.1 yesterday and after 1 unit of blood transfusion went up to 6.6 but because of shortness and supply the couple for transfusion nowadays is 6.5 in this facility. We repeated hemoglobin and is stable at 6.8 and sligh tly improving referral keep monitoring for now. Patient with no overt signs of bleeding currently. Also surgery team on the case. No more fever. Chest x-ray showing no definite lung capacity per radiologist. Remains on Zosyn and normal saline at 100 mL per hour. Also TPN 06/26/2021 Patient with infected incisional wound and possible deep intra-abdominal infection and his been treated with Zosyn and improving gradually. He has no abdominal pain, he is tolerating his full liquid diet well. No vomiting. He has some loose bowel movement. He remains on TPN. Wheeler catheter is discontinue it and we are checking bladder scan We'll check C. diff although suspicion is low Patient himself feels better and he looks pleased with the dissection of his illness going to. All his questions answered 06/27/2021 Patient awake and alert and hemodynamically stable however his hemoglobin was low at 6.4 and received one unit of blood transfusion. Other than that her medicine TPN which is started to be tapered down by surgery team and the meantime he remains on liquid diet per surgery team. Colostomy back was showing some brown stool although still loose but not liquid as before. Looks like patient improving gradually. He remains on Zosyn. 06/28/2021 Patient kept on liquid diet tolerating diet well. Distal ileostomy back working slowly area at the patient with minimal abdominal pain. However he developed significant anemia yesterday needing one unit of blood transfusion and currently his hemoglobin 7.7. TPN been tapered down until discontinued while encourage oral intake gradually. And he remains on antibiotics of Zosyn to cover intra-abdominal infection Wheeler catheter was discontinued 2 days ago, his pain well. However we'll check postvoid residual Objective - Vital Signs Vital signs: Vital Signs Temp 98.7 F 06/28/21 02:00 Pulse 87 06/28/21 02:00 Resp 16 06/28/21 02:00 BP 119/78 06/28/21 02:00 Pulse Ox 98 06/28/21 02:00 Intake & Output 06/27/21 06/28/21 06/28/21 18:59 06:59 18:59 Intake Total 1770 1200 Output Total 105 805 Balance 1665 395 Weight 118.8 kg Intake: IV 810 1200 Piperacillin-Tazobactam 3 110 100 .375 gm In Sodium Chloride 0.9% 100 ml @ 25 mls/hr IVPB Q8HR [facility] Rx# :[id number] Sodium Chloride 0.9% 1, 1100 000 ml @ 100 mls/hr IV . Q10H [facility] Rx#:[id number] TPN 700 Oral 650 Blood Product 310 Rc As-1 Unit 310 [id number] Output: Drainage 5 5 Abdomen 5 5 Urine 700 Stool 100 100 Other: Voiding Method Urinal Urinal - Exam GENERAL: The patient is alert and oriented x3, not in any acute distress. Well developed, well nourished. HEENT: Pupils are round and equally reacting to light. EOMI. No scleral icterus. No conjunctival pallor. Normocephalic, atraumatic. No pharyngeal erythema. No thyromegaly. CARDIOVASCULAR: S1 and S2 present. No murmurs, rubs, or gallops. PULMONARY: Chest is clear to auscultation, no wheezing or crackles. ABDOMEN: Soft, nontender, nondistended, normoactive bowel sounds. No palpable organomegaly. Midline abdominal wound is healing and dressing is in place. Right lower ileostomy with back empty MUSCULOSKELETAL: No joint swelling or deformity. EXTREMITIES: No cyanosis, clubbing, or pedal edema. NEUROLOGICAL: Gross neurological examination did not reveal any focal deficits. SKIN: No rashes. no petechiae. - Labs CBC & Chem 7: 06/28/21 06:44 06/28/21 06:44 Labs: Abnormal Lab Results - Last 24 Hours (Table) 06/27/21 06/27/21 06/27/21 Range/Units 11:20 16:58 22:15 RBC 2.94 L (4.30-5.90) m/uL Hgb 9.0 L D (13.0-17.5) gm/dL Hct 27.7 L (39.0-53.0) % RDW 16.6 H (11.5-15.5) % Lymphocytes # 0.8 L (1.0-4.8) k/uL Sodium (137-145) mmol/L Creatinine (0.66-1.25) mg/dL POC Glucose (mg/dL) 109 H (75-99) mg/dL Calcium (8.4-10.2) mg/dL Crossmatch See Detail 06/28/21 06/28/21 Range/Units 05:34 06:44 RBC (4.30-5.90) m/uL Hgb (13.0-17.5) gm/dL Hct (39.0-53.0) % RDW (11.5-15.5) % Lymphocytes # (1.0-4.8) k/uL Sodium 132 L (137-145) mmol/L Creatinine 0.61 L (0.66-1.25) mg/dL POC Glucose (mg/dL) 100 H (75-99) mg/dL Calcium 7.7 L (8.4-10.2) mg/dL Crossmatch Microbiology - Last 24 Hours (Table) 06/22/21 05:49 Blood Culture - Final Blood No Growth after 144 hours Assessment and Plan Assessment: -Bowel perforation had ileus on admission. Status post laparotomy and small bowel resection, right colectomy ileostomy . Patient is presently on Zosyn -History of Crohn's disease status post redo colectomy a few weeks ago -Leukocytosis secondary to sepsis, bowel perforation wound cultures are showing gram-negative bacilli this is from the surgical wound from his previous surgery improving patient is presently on Zosyn won't cultures are showing E. coli
[2021-06-29] MEDS: HYDROmorphone 1 MG/ML 1 ML SYRINGE IVP PRN ×6 (00:06→20:34)
[2021-06-29] MEDS: PIPERACILLIN-TAZOBACTAM 3.375 GM in SODIUM CHLORIDE 0.9% 100 ML IVPB SCH ×3 (00:06→16:04)
[2021-06-29] MEDS: SODIUM CHLORIDE 0.9% 1,000 ML IV SCH ×3 (00:07→20:30)
[2021-06-29] MEDS: INSULIN ASPART (NovoLOG) 100 UNIT/ML VIAL SQ SCH ×5 (00:12→21:50)
[2021-06-29 00:13] LABS: Glucose,Whole Blood 86 mg/dL (75-99)
[2021-06-29 01:15] LABS: Appearance,Urine Clear (Clear); Bilirubin,Urine Negative (Negative); Blood,Urine Trace (Negative); Color,Urine Yellow; Glucose,Urine (UA) Negative (Negative); Ketones,Urine Negative (Negative); Leukocyte Esterase,Urine Negative (Negative); Nitrite,Urine Negative (Negative); PH, Urine 7.5 (5.0-8.0); Protein,Urine Negative (Negative); RBC,Urine <1 /hpf (0-5); Specific Gravity,Urine 1.006 (1.001-1.035); Squamous Epithelial Cell,Urine <1 /hpf (0-4); Urobilinogen,Urine <2.0 mg/dL (<2.0); WBC,Urine <1 /hpf (0-5)
[2021-06-29 05:45] LABS: Glucose,Whole Blood 95 mg/dL (75-99)
[2021-06-29] MEDS: PANTOPRAZOLE 40 MG TABLET PO SCH (08:01)
[2021-06-29] MEDS: ENOXAPARIN 40 MG/0.4 ML SYRINGE SQ SCH (08:01)
[2021-06-29 11:44] LABS: Glucose,Whole Blood 112 mg/dL (75-99)
[2021-06-29 11:59] LABS: Basophils # (A) 0.01 X 10*3/uL (0.00-0.10); Basophils % (A) 0.1 %; Eosinophils # (A) 0.09 X 10*3/uL (0.04-0.35); HGB 7.7 g/dL (13.0-17.0); Immature Grans, Automated 1.2 %; Lymphocytes # (A) 0.77 X 10*3/uL (0.90-5.00); Lymphocytes % (A) 8.2 %; MCH 28.9 pg (27.0-32.0); MCHC 30.8 g/dL (32.0-37.0); Mean Platelet Volume 9.7 fL (9.5-12.2); Monocytes # (A) 0.47 X 10*3/uL (0.20-1.00); NRBC Per 100 WBC 0 /100 WBCS (0.0-0.0); Neutrophils # (A) 7.97 X 10*3/uL (1.80-7.70); Neutrophils % (A) 84.5 %; Platelet Count 257 X 10*3/uL (140-440); RBC 2.66 X 10*6/uL (4.40-5.60); RDW 17.5 % (11.5-14.5); WBC 9.42 X 10*3/uL (4.50-10.00)
[2021-06-29 12:02] LABS: African American GFR (CKD) 144.4 (60.0-200.0); Albumin 2.3 g/dL (3.8-4.9); Albumin/Globulin Ratio 0.82 (1.60-3.17); Anion Gap 11.1 mmol/L (10.00-18.00); BUN/Creat Ratio 15.23 Ratio (12.00-20.00); Blood Urea Nitrogen 9.2 mg/dL (9.0-27.0); Calcium 7.9 mg/dL (8.7-10.3); Carbon Dioxide 25.2 mmol/L (20.0-27.5); Globulin 2.8 g/dL (1.6-3.3); Non-African American GFR(CKD) 124.5 (60.0-200.0); Potassium 4.3 mmol/L (3.5-5.5); Total Bilirubin 1.5 mg/dL (0.30-1.20); Total Protein 5.1 g/dL (6.2-8.2)
[2021-06-29] MEDS: traMADol 50 MG TAB PO PRN ×2 (12:30→22:11)
--- NOTE | 2021-06-29 15:27 | P.PN ---
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 Postop day #8. Patient reports his pain is controlled. He did work with physical therapy. His ostomy is functioning. He is tolerating full liquid diet. Afebrile. WBC 9.4 to hemoglobin 7.7 Patient seen and examined with Dr. steen PHYSICAL EXAM: VITAL SIGNS: Reviewed. GENERAL: Well-developed in no acute distress. HEENT: No sclera icterus. Extraocular movements grossly intact. Moist buccal mucosa. Head is atraumatic, normocephalic. ABDOMEN: Soft. Nondistended. Ileostomy brown stool. Incision site clean dry and intact. Looks healthy and pink. ADRIAN drain with purulent output NEUROLOGIC: Alert and oriented. Cranial nerves II through XII grossly intact. ASSESSMENT: 1. 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 Ileus resolved 3. Crohn's disease with abscess status post ileocolectomy and washout of peritoneal abscess on 05/28/2021 4. Generalized weakness 5. Anemia likely dilutional from IV fluids PLAN: -Encouraged patient to start using oral pain medication -Continue local wound care -Continue full liquid diet -Continue to monitor hemoglobin -Continue to monitor ADRIAN drain output -Encouraged patient to increase activity -Continue supportive care -Continue IV fluids -Continue antibiotics -Continue pain medication as needed -Incentive spirometer ordered -Encouraged patient to increase activity level -DVT prophylaxis Lovenox and GI prophylaxis Protonix Physician Manager Line note has been reviewed by physician. Signing provider agrees with the documented findings, assessment, and plan of care. Objective - Vital Signs Vital signs: Vital Signs Temp 97.6 F 06/29/21 08:00 Pulse 77 06/29/21 08:00 Resp 17 06/29/21 08:00 BP 134/77 06/29/21 08:00 Pulse Ox 96 06/29/21 08:00 Intake & Output 06/28/21 06/29/21 06/29/21 18:59 06:59 18:59 Output Total 800 1380 600 Balance -800 -1380 -600 Output: Drainage 30 Abdomen 30 Urine 800 1100 600 Stool 250 Other: Voiding Method Urinal # Voids 1 # Bowel Movements 3 1 - Labs CBC & Chem 7: 06/29/21 07:41 06/29/21 07:41 Labs: Abnormal Lab Results - Last 24 Hours (Table) 06/29/21 06/29/21 06/29/21 Range/Units 00:45 07:41 07:41 RBC 2.66 L (4.40-5.60) X 10*6/uL Hgb 7.7 L (13.0-17.0) g/dL Hct 25.0 L (39.6-50.0) % MCHC 30.8 L (32.0-37.0) g/dL RDW 17.5 H (11.5-14.5) % Immature Gran # 0.11 H (0.00-0.04) X 10*3/uL Neutrophils # 7.97 H (1.80-7.70) X 10*3/uL Lymphocytes # 0.77 L (0.90-5.00) X 10*3/uL POC Glucose (mg/dL) (75-99) mg/dL Calcium 7.9 L (8.7-10.3) mg/dL Total Bilirubin 1.50 H (0.30-1.20) mg/dL Total Protein 5.1 L (6.2-8.2) g/dL Albumin 2.3 L (3.8-4.9) g/dL Albumin/Globulin Ratio 0.82 L (1.60-3.17) g/dL Urine Blood Trace H (Negative) 06/29/21 Range/Units 11:43 RBC (4.40-5.60) X 10*6/uL Hgb (13.0-17.0) g/dL Hct (39.6-50.0) % MCHC (32.0-37.0) g/dL RDW (11.5-14.5) % Immature Gran # (0.00-0.04) X 10*3/uL Neutrophils # (1.80-7.70) X 10*3/uL Lymphocytes # (0.90-5.00) X 10*3/uL POC Glucose (mg/dL) 112 H (75-99) mg/dL Calcium (8.7-10.3) mg/dL Total Bilirubin (0.30-1.20) mg/dL Total Protein (6.2-8.2) g/dL Albumin (3.8-4.9) g/dL Albumin/Globulin Ratio (1.60-3.17) g/dL Urine Blood (Negative)
[2021-06-29 16:33] LABS: Glucose,Whole Blood 100 mg/dL (75-99)
[2021-06-29 21:49] LABS: Glucose,Whole Blood 92 mg/dL (75-99)
--- NOTE | 2021-06-29 22:12 | P.PN ---
Subjective Progress Note Date: 06/28/21 Principal diagnosis: Abdominal wound infection Patient is 41 year male with a past medical history significant for Crohn's disease in this patient who recently did have a laparotomy for abdominal abscess, no readmitted to the hospital with abdominal pain and concern for abdominal wound dehiscence and possible infection. Patient was taken to the OR 06/21/2021 patient is status post laparotomy right colectomy and ileostomy and drainage of abdominal abscess On today's evaluation that is 06/28/2021, the patient remains to be afebrile, the patient is breathing comfortably on 2 L nasal cannula oxygen, the patient abdominal pain is currently controlled, the patient denies nausea no vomiting no chest pain shortness of breath or cough Objective - Vital Signs Vital signs: Vital Signs Temp 98.7 F 06/28/21 20:00 Pulse 99 06/28/21 20:00 Resp 12 06/28/21 20:00 BP 126/80 06/28/21 20:00 Pulse Ox 98 06/28/21 20:00 Intake & Output 06/28/21 06/28/21 06/29/21 06:59 18:59 06:59 Intake Total 1200 Output Total 805 800 Balance 395 -800 Intake: IV 1200 Piperacillin-Tazobactam 3 100 .375 gm In Sodium Chloride 0.9% 100 ml @ 25 mls/hr IVPB Q8HR [facility] Rx# :[id number] Sodium Chloride 0.9% 1, 1100 000 ml @ 100 mls/hr IV . Q10H [facility] Rx#:[id number] Output: Drainage 5 Abdomen 5 Urine 700 800 Stool 100 Other: Voiding Method Urinal # Bowel Movements 3 - Exam GENERAL DESCRIPTION:[ Patient is awake and alert in no distress] HEENT: [Oral mucosa is dry and no pharyngeal erythema] RESPIRATORY SYSTEM: [Unlabored breathing decreased. The base] CARDIA VASCULAR SYSTEM: [S1-S2 regular rate and rhythm no murmur] GI: [Abdominal soft no significant tenderness EXTREMITIES: [No edema feet] - Labs CBC & Chem 7: 06/29/21 07:41 06/29/21 07:41 Labs: Abnormal Lab Results - Last 24 Hours (Table) 06/27/21 06/28/21 06/28/21 Range/Units 22:15 05:34 06:44 RBC 2.94 L 2.68 L (4.30-5.90) m/uL Hgb 9.0 L D 7.7 L (13.0-17.5) gm/dL Hct 27.7 L 25.8 L (39.0-53.0) % MCHC 29.8 L (32.0-37.0) g/dL RDW 16.6 H 17.9 H (11.5-15.5) % Immature Gran # 0.16 H (0.00-0.04) X 10*3/uL Lymphocytes # 0.8 L 0.72 L (1.0-4.8) k/uL Sodium (137-145) mmol/L Creatinine (0.66-1.25) mg/dL POC Glucose (mg/dL) 100 H (75-99) mg/dL Calcium (8.4-10.2) mg/dL 06/28/21 06/28/21 Range/Units 06:44 11:35 RBC (4.30-5.90) m/uL Hgb (13.0-17.5) gm/dL Hct (39.0-53.0) % MCHC (32.0-37.0) g/dL RDW (11.5-15.5) % Immature Gran # (0.00-0.04) X 10*3/uL Lymphocytes # (1.0-4.8) k/uL Sodium 132 L (137-145) mmol/L Creatinine 0.61 L (0.66-1.25) mg/dL POC Glucose (mg/dL) 118 H (75-99) mg/dL Calcium 7.7 L (8.4-10.2) mg/dL Microbiology - Last 24 Hours (Table) 06/22/21 05:49 Blood Culture - Final Blood No Growth after 144 hours Assessment and Plan (1) Incisional infection Current Visit: Yes Status: Acute Code(s): T81.49XA - INFECTION FOLLOWING A PROCEDURE, OTHER SURGICAL SITE, INIT SNOMED Code(s): 25549737 Plan: 1-patient admitted to the hospital with abdominal pain with abdominal incision dehiscence and concern for possible deep infection, and this patient who is status post exploratory laparotomy status post right colectomy and small bowel resection ileostomy and drainage of the abscess, no OR cultures were done superficial abdominal cultures showed E. coli and anaerobes, patient to continue with Zosyn and monitor his clinical course closely Time with Patient: Less than 30
--- NOTE | 2021-06-29 22:13 | P.PN ---
Subjective Progress Note Date: 06/29/21 Principal diagnosis: Abdominal wound infection Patient is 41 year male with a past medical history significant for Crohn's disease in this patient who recently did have a laparotomy for abdominal abscess, no readmitted to the hospital with abdominal pain and concern for abdominal wound dehiscence and possible infection. Patient was taken to the OR 06/21/2021 patient is status post laparotomy right colectomy and ileostomy and drainage of abdominal abscess On today's evaluation that is 06/29/2021, the patient continues to be afebrile, the patient is breathing comfortably on 2 L nasal cannula oxygen, the patient abdominal pain is currently controlled, the patient has been tolerating his diet and denies nausea no vomiting no chest pain shortness of breath or cough Objective - Vital Signs Vital signs: Vital Signs Temp 98.6 F 06/29/21 19:56 Pulse 97 06/29/21 19:56 Resp 16 06/29/21 19:56 BP 120/77 06/29/21 19:56 Pulse Ox 99 06/29/21 19:56 Intake & Output 06/29/21 06/29/21 06/30/21 06:59 18:59 06:59 Output Total 1380 1160 Balance -1380 -1160 Output: Drainage 30 10 Abdomen 30 10 Urine 1100 1150 Stool 250 Other: Voiding Method Urinal # Voids 1 # Bowel Movements 1 - Exam GENERAL DESCRIPTION:[ Patient is awake and alert in no distress] HEENT: [Oral mucosa is dry and no pharyngeal erythema] RESPIRATORY SYSTEM: [Unlabored breathing decreased. The base] CARDIA VASCULAR SYSTEM: [S1-S2 regular rate and rhythm no murmur] GI: [Abdominal soft no significant tenderness EXTREMITIES: [No edema feet] - Labs CBC & Chem 7: 06/29/21 07:41 06/29/21 07:41 Labs: Abnormal Lab Results - Last 24 Hours (Table) 06/29/21 06/29/21 06/29/21 Range/Units 00:45 07:41 07:41 RBC 2.66 L (4.40-5.60) X 10*6/uL Hgb 7.7 L (13.0-17.0) g/dL Hct 25.0 L (39.6-50.0) % MCHC 30.8 L (32.0-37.0) g/dL RDW 17.5 H (11.5-14.5) % Immature Gran # 0.11 H (0.00-0.04) X 10*3/uL Neutrophils # 7.97 H (1.80-7.70) X 10*3/uL Lymphocytes # 0.77 L (0.90-5.00) X 10*3/uL POC Glucose (mg/dL) (75-99) mg/dL Calcium 7.9 L (8.7-10.3) mg/dL Total Bilirubin 1.50 H (0.30-1.20) mg/dL Total Protein 5.1 L (6.2-8.2) g/dL Albumin 2.3 L (3.8-4.9) g/dL Albumin/Globulin Ratio 0.82 L (1.60-3.17) g/dL Urine Blood Trace H (Negative) 06/29/21 06/29/21 Range/Units 11:43 16:32 RBC (4.40-5.60) X 10*6/uL Hgb (13.0-17.0) g/dL Hct (39.6-50.0) % MCHC (32.0-37.0) g/dL RDW (11.5-14.5) % Immature Gran # (0.00-0.04) X 10*3/uL Neutrophils # (1.80-7.70) X 10*3/uL Lymphocytes # (0.90-5.00) X 10*3/uL POC Glucose (mg/dL) 112 H 100 H (75-99) mg/dL Calcium (8.7-10.3) mg/dL Total Bilirubin (0.30-1.20) mg/dL Total Protein (6.2-8.2) g/dL Albumin (3.8-4.9) g/dL Albumin/Globulin Ratio (1.60-3.17) g/dL Urine Blood (Negative) Assessment and Plan (1) Incisional infection Current Visit: Yes Status: Acute Code(s): T81.49XA - INFECTION FOLLOWING A PROCEDURE, OTHER SURGICAL SITE, INIT SNOMED Code(s): 22395577 Plan: 1-patient admitted to the hospital with abdominal pain with abdominal incision dehiscence and concern for possible deep infection, and this patient who is status post exploratory laparotomy status post right colectomy and small bowel resection ileostomy and drainage of the abscess, no OR cultures were done superficial abdominal cultures showed E. coli and anaerobes, patient seemed to have clinically improved with the Zosyn white count is normal continue with IV Zosyn while inpatient and may transition to oral antibiotics on discharge Time with Patient: Less than 30
--- NOTE | 2021-06-29 22:16 | P.PN ---
Subjective Progress Note Date: 06/29/21 41-year-old male with history of Crohn's disease and abscess had a ileocolectomy on 05/28/2021 subsequently discharged to [facility] patient rehabitation patient won't cultures during previous hospital physicians showed E. coli and Keke patient to complete the treatment with Augmentin and Diflucan. I did evaluate this patient at [facility] rehabilitation at that time I obtain the cultures as there was concern about new infection in the surgical site area will obtain those cultures, infectious disease evaluated the patient there. Patient was subsequently discharged. came in with the increase the pain and infection of the surgical site area now. Patient had a CT of the abdomen which is concerning for ileus although patient was having normal bowel movements. Patient is hyponatremic. Patient will sugars are highly elevated lower obtain hemoglobin and patient was started on insulin regimen along with sliding scale. 06/21/2021 Patient was evaluated by general surgery and the infectious disease. There is mild area of redness, infectious disease doesn't believe patient has significant superficial infection there is no evidence of abscesses on the CT either although patient may need only back as per infectious disease cultures are pending patient is being can urine Zosyn. 06/22/2021 Patient is found to have pneumoperitoneum later in the day and patient underwent emergent laparotomy. With a small bowel resection and right colectomy and ileostomy. Patient is presently intubated on mechanical ventilator with the assist-control ventilation with respiratory rate of 14 and tidal volume of 6 and FiO2 of 40% PEEP of 8 patient is on propofol for sedation white blood cell count went up to 22,000 from normal white count, colostomy is empty at this time. 06/23/2021 Patient is extubated today patient is presently on 5 L of oxygen is alert awake alert oriented 3 patient White blood cell count has come down. And presently 10,900. Patient has a Wheeler catheter urine output around 50-60 mL per hour. Patient is off pressor support. 06/24/2021 This is a pleasant 41 years old male who was recently discharged from the hospital for intra-abdominal infection presents with incisional infection and abdominal wound dehiscence and he underwent exploratory laparotomy status post right colectomy and small bowel resection with ileostomy and drainage of an abscess. He is covered with Zosyn. Once culture was growing E. coli and an air MICROORGANISMS. Also he is on normal saline. He is awake and alert, not in distress. He is on a clear liquid diet. No nausea vomiting. As mild abdominal pain, no abdominal distention and it makes little bowel movement. Hemoglobin drops 7 down to 6.1 today and he got one unit of blood transfusion and we will check hemoglobin the morning. 06/25/2021 Patient generally doing well, he was transferred to the general medical floor. He tolerates clear liquid diet and it was advanced today. Liquid diet. No vomiting, little expected abdominal pain. He has some loose bowel movement does not look C. diff but to go to check anyway. His hemoglobin was 6.1 yesterday and after 1 unit of blood transfusion went up to 6.6 but because of shortness and supply the couple for transfusion nowadays is 6.5 in this facility. We repeated hemoglobin and is stable at 6.8 and slightly improving referral keep monitoring for now. Patient with no overt signs of bleeding currently. Also surgery team on the case. No more fever. Chest x-ray showing no definite lung capacity per radiologist. Remains on Zosyn and normal saline at 100 mL per hour. Also TPN 06/26/2021 Patient with infected incisional wound and possible deep intra-abdominal infection and his been treated with Zosyn and improving gradually. He has no abdominal pain, he is tolerating his full liquid diet well. No vomiting. He has some loose bowel movement. He remains on TPN. Wheeler catheter is discontinue it and we are checking bladder scan We'll check C. diff although suspicion is low Patient himself feels better and he looks pleased with the dissection of his ill ness going to. All his questions answered 06/27/2021 Patient awake and alert and hemodynamically stable however his hemoglobin was low at 6.4 and received one unit of blood transfusion. Other than that her medicine TPN which is started to be tapered down by surgery team and the meantime he remains on liquid diet per surgery team. Colostomy back was showing some brown stool although still loose but not liquid as before. Looks like patient improving gradually. He remains on Zosyn. 06/28/2021 Patient kept on liquid diet tolerating diet well. Distal ileostomy back working slowly area at the patient with minimal abdominal pain. However he developed significant anemia yesterday needing one unit of blood transfusion and currently his hemoglobin 7.7. TPN been tapered down until discontinued while encourage oral intake gradually. And he remains on antibiotics of Zosyn to cover intra-abdominal infection Wheeler catheter was discontinued 2 days ago, his pain well. However we'll check postvoid residual 06/29/2021 Patient evaluated today sitting up in chair. Denies acute events overnight, denies abdominal pain. Passing gas from ostomy, staff is emptying ostomy currently. Patient states next session will come in for training and he is hoping to be comfortable resuming care of the ostomy. Labs today show WBC 9.42, hemoglobin 7.7, platelets 257, calcium 7.9, total bili 1.50, total protein 5.1, albumin 2.3. Afebrile, heart rate 97, blood pressure 120/77, 99% on 2L NC which he states he is using as needed more so ate night. He is getting up to 1500 on his IS encouraged to keep using and to ambulate as tolerated. Full liquid diet with ensure, on average eating about 50% of meals. Continues on IV zosyn. Plan for [facility] on discharge once medically stable. ROS Constitutional: Reports generalized weakness, denied any fever. Cardio vascular: denied any chest pain, palpitations Gastrointestinal denied any nausea vomiting, reports stools through ostomy Pulmonary: Denied any shortness of breath cough Neurologic denied any new focal deficits All inpatient medications were reviewed and appropriate changes in these medications as dictated in the interval history and assessment and plan. PHYSICAL EXAMINATION: GENERAL: The patient is alert and oriented x3, not in any acute distress. Well developed, well nourished. HEENT: Pupils are round and equally reacting to light. EOMI. No scleral icterus. No conjunctival pallor. Normocephalic, atraumatic. No pharyngeal erythema. No thyromegaly. CARDIOVASCULAR: S1 and S2 present. No murmurs, rubs, or gallops. PULMONARY: Chest is clear to auscultation, no wheezing or crackles. ABDOMEN: Soft, tender, nondistended, normoactive bowel sounds. No palpable organomegaly. Post surgical abdomen with midline incision and ostomy MUSCULOSKELETAL: No joint swelling or deformity. EXTREMITIES: No cyanosis, clubbing, or pedal edema. NEUROLOGICAL: Gross neurological examination did not reveal any focal deficits. SKIN: No rashes. Assessment and Plan Assessment -Bowel perforation had ileus on admission. Post op day #8 laparotomy and small bowel resection, right colectomy ileostomy . Patient is presently on Zosyn -History of Crohn's disease status post redo colectomy a few weeks ago -Leukocytosis secondary to sepsis, bowel perforation wound cultures are showing gram-negative bacilli this is from the surgical wound from his previous surgery on IV zosyn, cultures showing E.Coli -Anemia; s/p 2 units PRBC hgb currently 7.1, unclear etiology, possibly dilutional, no evidence for acute bleeding. -History tobacco use, quit in 2020 -Obesity GI Prophylaxis Protonix DVT Prophylaxis Lovenox FULL CODE Plan Full liquid diet per primary Increase activity level Encourage IS use Continue with IV zosyn [facility] on discharge Objective - Vital Signs Vital signs: Vital Signs Temp 97.6 F 06/29/21 08:00 Pulse 77 06/29/21 08:00 Resp 17 06/29/21 08:00 BP 134/77 06/29/21 08:00 Pulse Ox 96 06/29/21 08:00 Intake & Output 06/28/21 06/29/21 06/29/21 18:59 06:59 18:59 Output Total 800 1380 600 Balance -800 -1380 -600 Output: Drainage 30 Abdomen 30 Urine 800 1100 600 Stool 250 Other: Voiding Method Urinal # Voids 1 # Bowel Movements 3 1 - Labs CBC & Chem 7: 06/29/21 07:41 06/29/21 07:41 Labs: Abnormal Lab Results - Last 24 Hours (Table) 06/29/21 06/29/21 06/29/21 Range/Units 00:45 07:41 07:41 RBC 2.66 L (4.40-5.60) X 10*6/uL Hgb 7.7 L (13.0-17.0) g/dL Hct 25.0 L (39.6-50.0) % MCHC 30.8 L (32.0-37.0) g/dL RDW 17.5 H (11.5-14.5) % Immature Gran # 0.11 H (0.00-0.04) X 10*3/uL Neutrophils # 7.97 H (1.80-7.70) X 10*3/uL Lymphocytes # 0.77 L (0.90-5.00) X 10*3/uL POC Glucose (mg/dL) (75-99) mg/dL Calcium 7.9 L (8.7-10.3) mg/dL Total Bilirubin 1.50 H (0.30-1.20) mg/dL Total Protein 5.1 L (6.2-8.2) g/dL Albumin 2.3 L (3.8-4.9) g/dL Albumin/Globulin Ratio 0.82 L (1.60-3.17) g/dL Urine Blood Trace H (Negative) 06/29/21 Range/Units 11:43 RBC (4.40-5.60) X 10*6/uL Hgb (13.0-17.0) g/dL Hct (39.6-50.0) % MCHC (32.0-37.0) g/dL RDW (11.5-14.5) % Immature Gran # (0.00-0.04) X 10*3/uL Neutrophils # (1.80-7.70) X 10*3/uL Lymphocytes # (0.90-5.00) X 10*3/uL POC Glucose (mg/dL) 112 H (75-99) mg/dL Calcium (8.7-10.3) mg/dL Total Bilirubin (0.30-1.20) mg/dL Total Protein (6.2-8.2) g/dL Albumin (3.8-4.9) g/dL Albumin/Globulin Ratio (1.60-3.17) g/dL Urine Blood (Negative) Microbiology - Last 24 Hours (Table) 06/22/21 05:49 Blood Culture - Final Blood No Growth after 144 hours
[2021-06-30] MEDS: PIPERACILLIN-TAZOBACTAM 3.375 GM in SODIUM CHLORIDE 0.9% 100 ML IVPB SCH ×4 (00:42→23:49)
[2021-06-30] MEDS: MELATONIN 3 MG TABLET PO SCH ×2 (00:59→22:13)
[2021-06-30] MEDS: HYDROmorphone 1 MG/ML 1 ML SYRINGE IVP PRN ×4 (03:10→17:43)
[2021-06-30] MEDS: traMADol 50 MG TAB PO PRN ×2 (06:12→19:52)
[2021-06-30] MEDS: SODIUM CHLORIDE 0.9% 1,000 ML IV SCH (06:12)
[2021-06-30 06:46] LABS: Basophils % (A) 0 %; Eosinophils # (A) 0.1 k/uL (0-0.7); Eosinophils % (A) 1 %; HCT 25.4 % (39.0-53.0); HGB 7.9 gm/dL (13.0-17.5); Hypochromasia Marked; Lymphocytes # (A) 0.6 k/uL (1.0-4.8); Lymphocytes % (A) 7 %; MCH 30.4 pg (25.0-35.0); MCHC 31.1 g/dL (31.0-37.0); Macrocytosis Slight; Mean Platelet Volume 7.2; Monocytes # (A) 0.4 k/uL (0-1.0); Monocytes % (A) 5 %; Neutrophils # (A) 7.9 k/uL (1.3-7.7); Neutrophils % (A) 85 %; Platelet Count 261 k/uL (150-450); RBC 2.59 m/uL (4.30-5.90); WBC 9.3 k/uL (3.8-10.6)
[2021-06-30 07:47] LABS: Glucose,Whole Blood 102 mg/dL (75-99)
[2021-06-30] MEDS: INSULIN ASPART (NovoLOG) 100 UNIT/ML VIAL SQ SCH ×4 (08:04→19:57)
[2021-06-30] MEDS: ENOXAPARIN 40 MG/0.4 ML SYRINGE SQ SCH (08:15)
[2021-06-30] MEDS: PANTOPRAZOLE 40 MG TABLET PO SCH (08:15)
[2021-06-30 11:28] LABS: Glucose,Whole Blood 101 mg/dL (75-99)
--- NOTE | 2021-06-30 13:18 | P.PN ---
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 Postop day #9. Patient reports his pain is controlled. He did work with physical therapy this morning and ambulated in the room. He denies any nausea or vomiting. Ostomy is functioning. Afebrile. WBC normal at 9.3 hemoglobin 7.9 Patient seen and examined with Dr. steen PHYSICAL EXAM: VITAL SIGNS: Reviewed. GENERAL: Well-developed in no acute distress. HEENT: No sclera icterus. Extraocular movements grossly intact. Moist buccal mucosa. Head is atraumatic, normocephalic. ABDOMEN: Soft. Nondistended. Ileostomy brown stool. Incision site clean dry and intact. Looks healthy and pink. ADRIAN drain with purulent output NEUROLOGIC: Alert and oriented. Cranial nerves II through XII grossly intact. ASSESSMENT: 1. 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 Ileus resolved 3. Crohn's disease with abscess status post ileocolectomy and washout of peritoneal abscess on 05/28/2021 4. Generalized weakness 5. Anemia likely dilutional from IV fluids PLAN: -Advance diet to regular -Continue local wound care -Continue to monitor hemoglobin -Continue to monitor ADRIAN drain output -Heplock IV fluids -Encouraged patient to increase activity -Continue supportive care -Continue antibiotics per ID and they're recommending oral antibiotics at discharge -Continue pain medication as needed -Incentive spirometer ordered -Encouraged patient to increase activity level -DVT prophylaxis Lovenox and GI prophylaxis Protonix Physician Program Development Manager note has been reviewed by physician. Signing provider agrees with the documented findings, assessment, and plan of care. Objective - Vital Signs Vital signs: Vital Signs Temp 98.4 F 06/30/21 08:00 Pulse 99 06/30/21 08:00 Resp 16 06/30/21 08:00 BP 106/68 06/30/21 08:00 Pulse Ox 98 06/30/21 08:00 Intake & Output 06/29/21 06/30/21 06/30/21 18:59 06:59 18:59 Intake Total 2640 Output Total 1160 1500 10 Balance -1160 1140 -10 Intake: IV 1100 Piperacillin-Tazobactam 3 100 .375 gm In Sodium Chloride 0.9% 100 ml @ 25 mls/hr IVPB Q8HR [facility] Rx# :[id number] Sodium Chloride 0.9% 1, 1000 000 ml @ 100 mls/hr IV . Q10H [facility] Rx#:[id number] Oral 1540 Output: Gastric Drainage 250 Drainage 10 10 Abdomen 10 10 Urine 1150 1250 Other: # Bowel Movements 1 - Labs CBC & Chem 7: 06/30/21 06:23 06/29/21 07:41 Labs: Abnormal Lab Results - Last 24 Hours (Table) 06/29/21 06/30/21 06/30/21 Range/Units 16:32 06:23 07:45 RBC 2.59 L (4.30-5.90) m/uL Hgb 7.9 L (13.0-17.5) gm/dL Hct 25.4 L (39.0-53.0) % RDW 16.0 H (11.5-15.5) % Neutrophils # 7.9 H (1.3-7.7) k/uL Lymphocytes # 0.6 L (1.0-4.8) k/uL POC Glucose (mg/dL) 100 H 102 H (75-99) mg/dL 06/30/21 Range/Units 11:27 RBC (4.30-5.90) m/uL Hgb (13.0-17.5) gm/dL Hct (39.0-53.0) % RDW (11.5-15.5) % Neutrophils # (1.3-7.7) k/uL Lymphocytes # (1.0-4.8) k/uL POC Glucose (mg/dL) 101 H (75-99) mg/dL
--- NOTE | 2021-06-30 13:50 | P.PN ---
Subjective Progress Note Date: 06/30/21 41-year-old male with history of Crohn's disease and abscess had a ileocolectomy on 05/28/2021 subsequently discharged to [facility] patient rehabitation patient won't cultures during previous hospital physicians showed E. coli and Keke patient to complete the treatment with Augmentin and Diflucan. I did evaluate this patient at [facility] rehabilitation at that time I obtain the cultures as there was concern about new infection in the surgical site area will obtain those cultures, infectious disease evaluated the patient there. Patient was subsequently discharged. came in with the increase the pain and infection of the surgical site area now. Patient had a CT of the abdomen which is concerning for ileus although patient was having normal bowel movements. Patient is hyponatremic. Patient will sugars are highly elevated lower obtain hemoglobin and patient was started on insulin regimen along with sliding scale. 06/21/2021 Patient was evaluated by general surgery and the infectious disease. There is mild area of redness, infectious disease doesn't believe patient has significant superficial infection there is no evidence of abscesses on the CT either although patient may need only back as per infectious disease cultures are pending patient is being can urine Zosyn. 06/22/2021 Patient is found to have pneumoperitoneum later in the day and patient underwent emergent laparotomy. With a small bowel resection and right colectomy and ileostomy. Patient is presently intubated on mechanical ventilator with the assist-control ventilation with respiratory rate of 14 and tidal volume of 6 and FiO2 of 40% PEEP of 8 patient is on propofol for sedation white blood cell count went up to 22,000 from normal white count, colostomy is empty at this time. 06/23/2021 Patient is extubated today patient is presently on 5 L of oxygen is alert awake alert oriented 3 patient White blood cell count has come down. And presently 10,900. Patient has a Wheeler catheter urine output around 50-60 mL per hour. Patient is off pressor support. 06/24/2021 This is a pleasant 41 years old male who was recently discharged from the hospital for intra-abdominal infection presents with incisional infection and abdominal wound dehiscence and he underwent exploratory laparotomy status post right colectomy and small bowel resection with ileostomy and drainage of an abscess. He is covered with Zosyn. Once culture was growing E. coli and an air MICROORGANISMS. Also he is on normal saline. He is awake and alert, not in distress. He is on a clear liquid diet. No nausea vomiting. As mild abdominal pain, no abdominal distention and it makes little bowel movement. Hemoglobin drops 7 down to 6.1 today and he got one unit of blood transfusion and we will check hemoglobin the morning. 06/25/2021 Patient generally doing well, he was transferred to the general medical floor. He tolerates clear liquid diet and it was advanced today. Liquid diet. No vomiting, little expected abdominal pain. He has some loose bowel movement does not look C. diff but to go to check anyway. His hemoglobin was 6.1 yesterday and after 1 unit of blood transfusion went up to 6.6 but because of shortness and supply the couple for transfusion nowadays is 6.5 in this facility. We repeated hemoglobin and is stable at 6.8 and slightly improving referral keep monitoring for now. Patient with no overt signs of bleeding currently. Also surgery team on the case. No more fever. Chest x-ray showing no definite lung capacity per radiologist. Remains on Zosyn and normal saline at 100 mL per hour. Also TPN 06/26/2021 Patient with infected incisional wound and possible deep intra-abdominal infection and his been treated with Zosyn and improving gradually. He has no abdominal pain, he is tolerating his full liquid diet well. No vomiting. He has some loose bowel movement. He remains on TPN. Wheeler catheter is discontinue it and we are checking bladder scan We'll check C. diff although suspicion is low Patient himself feels better and he looks pleased with the dissection of his ill ness going to. All his questions answered 06/27/2021 Patient awake and alert and hemodynamically stable however his hemoglobin was low at 6.4 and received one unit of blood transfusion. Other than that her medicine TPN which is started to be tapered down by surgery team and the meantime he remains on liquid diet per surgery team. Colostomy back was showing some brown stool although still loose but not liquid as before. Looks like patient improving gradually. He remains on Zosyn. 06/28/2021 Patient kept on liquid diet tolerating diet well. Distal ileostomy back working slowly area at the patient with minimal abdominal pain. However he developed significant anemia yesterday needing one unit of blood transfusion and currently his hemoglobin 7.7. TPN been tapered down until discontinued while encourage oral intake gradually. And he remains on antibiotics of Zosyn to cover intra-abdominal infection Wheeler catheter was discontinued 2 days ago, his pain well. However we'll check postvoid residual 06/29/2021 Patient evaluated today sitting up in chair. Denies acute events overnight, denies abdominal pain. Passing gas from ostomy, staff is emptying ostomy currently. Patient states next session will come in for training and he is hoping to be comfortable resuming care of the ostomy. Labs today show WBC 9.42, hemoglobin 7.7, platelets 257, calcium 7.9, total bili 1.50, total protein 5.1, albumin 2.3. Afebrile, heart rate 97, blood pressure 120/77, 99% on 2L NC which he states he is using as needed more so ate night. He is getting up to 1500 on his IS encouraged to keep using and to ambulate as tolerated. Full liquid diet with ensure, on average eating about 50% of meals. Continues on IV zosyn. Plan for [facility] on discharge once medically stable. 06/30/2021 Patient values today sitting up in a chair, no acute events overnight he did work with physical therapy and is having increased abdominal pain requesting pain medication. Using his incentive spirometer, abdominal packing in place, ostomy with stool he states he is passing more gas than stool today. Labs today show stable hemoglobin 7.9, blood sugar in the 100s. He is off the TPN and now on full liquid diet with ensure working on increasing his oral intake. Vital stable, afebrile, heart rate 99, blood pressure 106/68 and he is 98% on 2 L nasal cannula. ROS Constitutional: Reports generalized weakness, denied any fever. Cardio vascular: denied any chest pain, palpitations Gastrointestinal denied any nausea vomiting, reports stools through ostomy Pulmonary: Denied any shortness of breath cough Neurologic denied any new focal deficits All inpatient medications were reviewed and appropriate changes in these medications as dictated in the interval history and assessment and plan. PHYSICAL EXAMINATION: GENERAL: The patient is alert and oriented x3, not in any acute distress. Well developed, well nourished. HEENT: Pupils are round and equally reacting to light. EOMI. No scleral icterus. No conjunctival pallor. Normocephalic, atraumatic. No pharyngeal erythema. No thyromegaly. CARDIOVASCULAR: S1 and S2 present. No murmurs, rubs, or gallops. PULMONARY: Chest is clear to auscultation, no wheezing or crackles. ABDOMEN: Soft, tender, nondistended, normoactive bowel sounds. No palpable organomegaly. Post surgical abdomen with midline incision and ostomy MUSCULOSKELETAL: No joint swelling or deformity. EXTREMITIES: No cyanosis, clubbing, or pedal edema. NEUROLOGICAL: Gross neurological examination did not reveal any focal deficits. SKIN: No rashes. Assessment and Plan Assessment -Bowel perforation had ileus on admission. Post op day #9 laparotomy and small bowel resection, right colectomy ileostomy . Patient is presently on Zosyn -History of Crohn's disease status post redo colectomy a few weeks ago -Leukocytosis secondary to sepsis, bowel perforation wound cultures are showing gram-negative bacilli this is from the surgical wound from his previous surgery on IV zosyn, cultures showing E.Coli, luekocytosis resolved -Anemia; s/p 2 units PRBC hgb currently 7.1, unclear etiology, possibly dilutional, no evidence for acute bleeding. -History tobacco use, quit in 2020 -Obesity GI Prophylaxis Protonix DVT Prophylaxis Lovenox FULL CODE Plan Full liquid diet per primary Increase activity level Encourage IS use Continue with IV zosyn [facility] on discharge Thank you for this consultation we will continue to follow along this admission. Objective - Vital Signs Vital signs: Vital Signs Temp 98.4 F 06/30/21 08:00 Pulse 99 06/30/21 08:00 Resp 16 06/30/21 08:00 BP 106/68 06/30/21 08:00 Pulse Ox 98 06/30/21 08:00 Intake & Output 06/29/21 06/30/21 06/30/21 18:59 06:59 18:59 Intake Total 2640 Output Total 1160 1500 10 Balance -1160 1140 -10 Intake: IV 1100 Piperacillin-Tazobactam 3 100 .375 gm In Sodium Chloride 0.9% 100 ml @ 25 mls/hr IVPB Q8HR [facility] Rx# :[id number] Sodium Chloride 0.9% 1, 1000 000 ml @ 100 mls/hr IV . Q10H [facility] Rx#:[id number] Oral 1540 Output: Gastric Drainage 250 Drainage 10 10 Abdomen 10 10 Urine 1150 1250 Other: # Bowel Movements 1 - Labs CBC & Chem 7: 06/30/21 06:23 06/29/21 07:41 Labs: Abnormal Lab Results - Last 24 Hours (Table) 06/29/21 06/30/21 06/30/21 Range/Units 16:32 06:23 07:45 RBC 2.59 L (4.30-5.90) m/uL Hgb 7.9 L (13.0-17.5) gm/dL Hct 25.4 L (39.0-53.0) % RDW 16.0 H (11.5-15.5) % Neutrophils # 7.9 H (1.3-7.7) k/uL Lymphocytes # 0.6 L (1.0-4.8) k/uL POC Glucose (mg/dL) 100 H 102 H (75-99) mg/dL 06/30/21 Range/Units 11:27 RBC (4.30-5.90) m/uL Hgb (13.0-17.5) gm/dL Hct (39.0-53.0) % RDW (11.5-15.5) % Neutrophils # (1.3-7.7) k/uL Lymphocytes # (1.0-4.8) k/uL POC Glucose (mg/dL) 101 H (75-99) mg/dL Assessment and Plan Time with Patient: Less than 30
[2021-06-30 16:45] LABS: Glucose,Whole Blood 93 mg/dL (75-99)
[2021-06-30 19:59] LABS: Glucose,Whole Blood 104 mg/dL (75-99)
[2021-06-30] MEDS: IBUPROFEN 600 MG TAB PO PRN (20:54)
[2021-07-01] MEDS: traMADol 50 MG TAB PO PRN ×2 (05:19→21:40)
[2021-07-01] MEDS: HYDROmorphone 1 MG/ML 1 ML SYRINGE IVP PRN ×3 (07:38→19:28)
[2021-07-01 08:05] LABS: Glucose,Whole Blood 99 mg/dL (75-99)
[2021-07-01] MEDS: INSULIN ASPART (NovoLOG) 100 UNIT/ML VIAL SQ SCH ×4 (08:09→21:35)
[2021-07-01] MEDS: ENOXAPARIN 40 MG/0.4 ML SYRINGE SQ SCH (08:26)
[2021-07-01] MEDS: PANTOPRAZOLE 40 MG TABLET PO SCH (08:26)
[2021-07-01] MEDS: PIPERACILLIN-TAZOBACTAM 3.375 GM in SODIUM CHLORIDE 0.9% 100 ML IVPB SCH ×2 (08:27→16:59)
[2021-07-01 09:30] LABS: Basophils # (A) 0.01 X 10*3/uL (0.00-0.10); Basophils % (A) 0.1 %; Eosinophils # (A) 0.06 X 10*3/uL (0.04-0.35); Eosinophils % (A) 0.7 %; HCT 23.2 % (39.6-50.0); HGB 7.1 g/dL (13.0-17.0); Immature Grans, Automated 1.9 %; Lymphocytes # (A) 0.79 X 10*3/uL (0.90-5.00); Lymphocytes % (A) 9.4 %; MCH 28.9 pg (27.0-32.0); MCHC 30.6 g/dL (32.0-37.0); MCV 94.3 fL (80.0-97.0); Mean Platelet Volume 9.6 fL (9.5-12.2); Monocytes # (A) 0.52 X 10*3/uL (0.20-1.00); Monocytes % (A) 6.2 %; NRBC Per 100 WBC 0 /100 WBCS (0.0-0.0); Neutrophils # (A) 6.88 X 10*3/uL (1.80-7.70); Neutrophils % (A) 81.7 %; Platelet Count 243 X 10*3/uL (140-440); RBC 2.46 X 10*6/uL (4.40-5.60); RDW 17.2 % (11.5-14.5); WBC 8.42 X 10*3/uL (4.50-10.00)
[2021-07-01 12:26] LABS: Glucose,Whole Blood 107 mg/dL (75-99)
--- NOTE | 2021-07-01 15:32 | P.PN ---
Subjective Progress Note Date: 07/01/21 41-year-old male with history of Crohn's disease and abscess had a ileocolectomy on 05/28/2021 subsequently discharged to [facility] patient rehabitation patient won't cultures during previous hospital physicians showed E. coli and Keke patient to complete the treatment with Augmentin and Diflucan. I did evaluate this patient at [facility] rehabilitation at that time I obtain the cultures as there was concern about new infection in the surgical site area will obtain those cultures, infectious disease evaluated the patient there. Patient was subsequently discharged. came in with the increase the pain and infection of the surgical site area now. Patient had a CT of the abdomen which is concerning for ileus although patient was having normal bowel movements. Patient is hyponatremic. Patient will sugars are highly elevated lower obtain hemoglobin and patient was started on insulin regimen along with sliding scale. 06/21/2021 Patient was evaluated by general surgery and the infectious disease. There is mild area of redness, infectious disease doesn't believe patient has significant superficial infection there is no evidence of abscesses on the CT either although patient may need only back as per infectious disease cultures are pending patient is being can urine Zosyn. 06/22/2021 Patient is found to have pneumoperitoneum later in the day and patient underwent emergent laparotomy. With a small bowel resection and right colectomy and ileostomy. Patient is presently intubated on mechanical ventilator with the assist-control ventilation with respiratory rate of 14 and tidal volume of 6 and FiO2 of 40% PEEP of 8 patient is on propofol for sedation white blood cell count went up to 22,000 from normal white count, colostomy is empty at this time. 06/23/2021 Patient is extubated today patient is presently on 5 L of oxygen is alert awake alert oriented 3 patient White blood cell count has come down. And presently 10,900. Patient has a Wheeler catheter urine output around 50-60 mL per hour. Patient is off pressor support. 06/24/2021 This is a pleasant 41 years old male who was recently discharged from the hospital for intra-abdominal infection presents with incisional infection and abdominal wound dehiscence and he underwent exploratory laparotomy status post right colectomy and small bowel resection with ileostomy and drainage of an abscess. He is covered with Zosyn. Once culture was growing E. coli and an air MICROORGANISMS. Also he is on normal saline. He is awake and alert, not in distress. He is on a clear liquid diet. No nausea vomiting. As mild abdominal pain, no abdominal distention and it makes little bowel movement. Hemoglobin drops 7 down to 6.1 today and he got one unit of blood transfusion and we will check hemoglobin the morning. 06/25/2021 Patient generally doing well, he was transferred to the general medical floor. He tolerates clear liquid diet and it was advanced today. Liquid diet. No vomiting, little expected abdominal pain. He has some loose bowel movement does not look C. diff but to go to check anyway. His hemoglobin was 6.1 yesterday and after 1 unit of blood transfusion went up to 6.6 but because of shortness and supply the couple for transfusion nowadays is 6.5 in this facility. We repeated hemoglobin and is stable at 6.8 and slightly improving referral keep monitoring for now. Patient with no overt signs of bleeding currently. Also surgery team on the case. No more fever. Chest x-ray showing no definite lung capacity per radiologist. Remains on Zosyn and normal saline at 100 mL per hour. Also TPN 06/26/2021 Patient with infected incisional wound and possible deep intra-abdominal infection and his been treated with Zosyn and improving gradually. He has no abdominal pain, he is tolerating his full liquid diet well. No vomiting. He has some loose bowel movement. He remains on TPN. Wheeler catheter is discontinue it and we are checking bladder scan We'll check C. diff although suspicion is low Patient himself feels better and he looks pleased with the dissection of his ill ness going to. All his questions answered 06/27/2021 Patient awake and alert and hemodynamically stable however his hemoglobin was low at 6.4 and received one unit of blood transfusion. Other than that her medicine TPN which is started to be tapered down by surgery team and the meantime he remains on liquid diet per surgery team. Colostomy back was showing some brown stool although still loose but not liquid as before. Looks like patient improving gradually. He remains on Zosyn. 06/28/2021 Patient kept on liquid diet tolerating diet well. Distal ileostomy back working slowly area at the patient with minimal abdominal pain. However he developed significant anemia yesterday needing one unit of blood transfusion and currently his hemoglobin 7.7. TPN been tapered down until discontinued while encourage oral intake gradually. And he remains on antibiotics of Zosyn to cover intra-abdominal infection Wheeler catheter was discontinued 2 days ago, his pain well. However we'll check postvoid residual 06/29/2021 Patient evaluated today sitting up in chair. Denies acute events overnight, denies abdominal pain. Passing gas from ostomy, staff is emptying ostomy currently. Patient states next session will come in for training and he is hoping to be comfortable resuming care of the ostomy. Labs today show WBC 9.42, hemoglobin 7.7, platelets 257, calcium 7.9, total bili 1.50, total protein 5.1, albumin 2.3. Afebrile, heart rate 97, blood pressure 120/77, 99% on 2L NC which he states he is using as needed more so ate night. He is getting up to 1500 on his IS encouraged to keep using and to ambulate as tolerated. Full liquid diet with ensure, on average eating about 50% of meals. Continues on IV zosyn. Plan for [facility] on discharge once medically stable. 06/30/2021 Patient values today sitting up in a chair, no acute events overnight he did work with physical therapy and is having increased abdominal pain requesting pain medication. Using his incentive spirometer, abdominal packing in place, ostomy with stool he states he is passing more gas than stool today. Labs today show stable hemoglobin 7.9, blood sugar in the 100s. He is off the TPN and now on full liquid diet with ensure working on increasing his oral intake. Vital stable, afebrile, heart rate 99, blood pressure 106/68 and he is 98% on 2 L nasal cannula. 07/01/2021 Patient evaluated today resting in bed. He did have a fever, 100.3 throughout the night that he said finally broke around midnight. Fever free since. Blood pressure on the lower side at 100/67, heart rate 90, 99% on room air. He is on IV Zosyn. Labs today show stable white count 8.42, hemoglobin 7.1, platelet count 243. Blood sugars in the 100s. Ostomy care completed with teaching and patient was able to semi-participate. Otherwise no acute events overnight. Encourage incentive spirometry use and continued ambulation. ROS Constitutional: Reports generalized weakness, Reports fever last night Cardio vascular: denied any chest pain, palpitations Gastrointestinal denied any nausea vomiting, reports stools through ostomy Pulmonary: Denied any shortness of breath cough Neurologic denied any new focal deficits All inpatient medications were reviewed and appropriate changes in these medications as dictated in the interval history and assessment and plan. PHYSICAL EXAMINATION: GENERAL: The patient is alert and oriented x3, not in any acute distress. Well developed, well nourished. HEENT: Pupils are round and equally reacting to light. EOMI. No scleral icterus. No conjunctival pallor. Normocephalic, atraumatic. No pharyngeal erythema. No thyromegaly. CARDIOVASCULAR: S1 and S2 present. No murmurs, rubs, or gallops. PULMONARY: Chest is clear to auscultation, no wheezing or crackles. ABDOMEN: Soft, tender, nondistended, normoactive bowel sounds. No palpable organomegaly. Post surgical abdomen with midline incision and ostomy MUSCULOSKELETAL: No joint swelling or deformity. EXTREMITIES: No cyanosis, clubbing, or pedal edema. NEUROLOGICAL: Gross neurological examination did not reveal any focal deficits. SKIN: No rashes. Assessment and Plan Assessment -Bowel perforation had ileus on admission. Post op day #10 laparotomy and small bowel resection, right colectomy ileostomy . Patient is presently on Zosyn -History of Crohn's disease status post redo colectomy a few weeks ago -Leukocytosis secondary to sepsis, bowel perforation wound cultures are showing gram-negative bacilli this is from the surgical wound from his previous surgery on IV zosyn, cultures showing E.Coli, luekocytosis resolved -Anemia; s/p 2 units PRBC hgb currently 7.1, unclear etiology, possibly dilutional, no evidence for acute bleeding. -History tobacco use, quit in 2020 -Obesity GI Prophylaxis Protonix DVT Prophylaxis Lovenox FULL CODE Plan Full liquid diet per primary Increase activity level Encourage IS use Continue with IV zosyn [facility] on discharge Thank you for this consultation we will continue to follow along this admission. Objective - Vital Signs Vital signs: Vital Signs Temp 97.5 F L 07/01/21 06:59 Pulse 77 07/01/21 06:59 Resp 16 07/01/21 06:59 BP 104/69 07/01/21 06:59 Pulse Ox 100 07/01/21 09:02 Intake & Output 06/30/21 07/01/21 07/01/21 18:59 06:59 18:59 Intake Total 850 Output Total 630 230 900 Balance -630 620 -900 Weight 118.8 kg Intake: IV 100 Piperacillin-Tazobactam 3 100 .375 gm In Sodium Chloride 0.9% 100 ml @ 25 mls/hr IVPB Q8HR [facility] Rx# :[id number] Oral 750 Output: Gastric Drainage 200 Drainage 30 30 Abdomen 30 30 Urine 600 600 Stool 300 Other: # Voids 4 - Labs CBC & Chem 7: 07/01/21 05:56 06/29/21 07:41 Labs: Abnormal Lab Results - Last 24 Hours (Table) 06/30/21 07/01/21 07/01/21 Range/Units 19:57 05:56 12:24 RBC 2.46 L (4.40-5.60) X 10*6/uL Hgb 7.1 L (13.0-17.0) g/dL Hct 23.2 L (39.6-50.0) % MCHC 30.6 L (32.0-37.0) g/dL RDW 17.2 H (11.5-14.5) % Immature Gran # 0.16 H (0.00-0.04) X 10*3/uL Lymphocytes # 0.79 L (0.90-5.00) X 10*3/uL POC Glucose (mg/dL) 104 H 107 H (75-99) mg/dL
[2021-07-01 16:43] LABS: Glucose,Whole Blood 115 mg/dL (75-99)
--- NOTE | 2021-07-01 16:50 | P.PN ---
Subjective Progress Note Date: 07/01/21 CHIEF COMPLAINT: Drainage from abdominal incision HISTORY OF PRESENT ILLNESS: Patient is status post exploratory laparotomy, small bowel resection, right colectomy with ileostomy for abdominal fascial dehi scence, perforated small bowel and intra-abdominal abscess. Postop day #10. Patient reports his pain is controlled. He did work with physical therapy this morning and ambulated in the room. He denies any nausea or vomiting. Ostomy is functioning. Patient had fever of 101 last night and was mildly tachycardic. WBC 8.4 to hemoglobin 7.1 Patient seen and examined with Dr. steen PHYSICAL EXAM: VITAL SIGNS: Reviewed. GENERAL: Well-developed in no acute distress. HEENT: No sclera icterus. Extraocular movements grossly intact. Moist buccal mucosa. Head is atraumatic, normocephalic. ABDOMEN: Soft. Nondistended. Ileostomy brown stool. Incision site clean dry and intact. Looks healthy and pink. ADRIAN drain with purulent output NEUROLOGIC: Alert and oriented. Cranial nerves II through XII grossly intact. ASSESSMENT: 1. 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 Ileus resolved 3. Crohn's disease with abscess status post ileocolectomy and washout of peritoneal abscess on 05/28/2021 4. Generalized weakness 5. Anemia likely dilutional from IV fluids 6. Fever possibly due to patient's intra-abdominal abscess PLAN: -Continue regular diet -Continue local wound care -Continue to monitor hemoglobin -Continue to monitor ADRIAN drain output -Heplock IV fluids -Encouraged patient to increase activity -Continue supportive care -Continue antibiotics per ID -Continue pain medication as needed -Incentive spirometer ordered -Encouraged patient to increase activity level -DVT prophylaxis Lovenox and GI prophylaxis Protonix Physician Sports Analyst note has been reviewed by physician. Signing provider agrees with the documented findings, assessment, and plan of care. Objective - Vital Signs Vital signs: Vital Signs Temp 98.0 F 07/01/21 14:00 Pulse 90 07/01/21 14:00 Resp 18 07/01/21 14:00 BP 100/67 07/01/21 14:00 Pulse Ox 93 L 07/01/21 15:48 Intake & Output 06/30/21 07/01/21 07/01/21 18:59 06:59 18:59 Intake Total 850 Output Total 630 230 900 Balance -630 620 -900 Weight 118.8 kg Intake: IV 100 Piperacillin-Tazobactam 3 100 .375 gm In Sodium Chloride 0.9% 100 ml @ 25 mls/hr IVPB Q8HR [facility] Rx# :[id number] Oral 750 Output: Gastric Drainage 200 Drainage 30 30 Abdomen 30 30 Urine 600 600 Stool 300 Other: # Voids 4 - Labs CBC & Chem 7: 07/01/21 05:56 06/29/21 07:41 Labs: Abnormal Lab Results - Last 24 Hours (Table) 06/30/21 07/01/21 07/01/21 Range/Units 19:57 05:56 12:24 RBC 2.46 L (4.40-5.60) X 10*6/uL Hgb 7.1 L (13.0-17.0) g/dL Hct 23.2 L (39.6-50.0) % MCHC 30.6 L (32.0-37.0) g/dL RDW 17.2 H (11.5-14.5) % Immature Gran # 0.16 H (0.00-0.04) X 10*3/uL Lymphocytes # 0.79 L (0.90-5.00) X 10*3/uL POC Glucose (mg/dL) 104 H 107 H (75-99) mg/dL 07/01/21 Range/Units 16:41 RBC (4.40-5.60) X 10*6/uL Hgb (13.0-17.0) g/dL Hct (39.6-50.0) % MCHC (32.0-37.0) g/dL RDW (11.5-14.5) % Immature Gran # (0.00-0.04) X 10*3/uL Lymphocytes # (0.90-5.00) X 10*3/uL POC Glucose (mg/dL) 115 H (75-99) mg/dL
[2021-07-01 21:30] LABS: Glucose,Whole Blood 102 mg/dL (75-99)
[2021-07-01] MEDS: MELATONIN 3 MG TABLET PO SCH (21:35)
[2021-07-01] MEDS ORDERED: VANCOMYCIN IV PER PHARMACY 1 EACH MISC MISCELLANE PRN (21:51)
--- NOTE | 2021-07-01 22:02 | P.PN ---
Subjective Progress Note Date: 06/30/21 Principal diagnosis: Abdominal wound infection Patient is 41 year male with a past medical history significant for Crohn's disease in this patient who recently did have a laparotomy for abdominal abscess, no readmitted to the hospital with abdominal pain and concern for abdominal wound dehiscence and possible infection. Patient was taken to the OR 06/21/2021 patient is status post laparotomy right colectomy and ileostomy and drainage of abdominal abscess On today's evaluation that is 06/30/2021, the patient denies any fever or chills, the patient is breathing comfortably on 2 L nasal cannula oxygen, the patient denies abdominal pain, the patient has been tolerating his diet and denies nausea no vomiting no chest pain shortness of breath or cough Objective - Vital Signs Vital signs: Vital Signs Temp 98.7 F 06/30/21 14:00 Pulse 98 06/30/21 14:00 Resp 16 06/30/21 14:00 BP 100/65 06/30/21 14:00 Pulse Ox 93 L 06/30/21 14:00 Intake & Output 06/29/21 06/30/21 06/30/21 18:59 06:59 18:59 Intake Total 2640 Output Total 1160 1500 30 Balance -1160 1140 -30 Weight 118.8 kg Intake: IV 1100 Piperacillin-Tazobactam 3 100 .375 gm In Sodium Chloride 0.9% 100 ml @ 25 mls/hr IVPB Q8HR [facility] Rx# :[id number] Sodium Chloride 0.9% 1, 1000 000 ml @ 100 mls/hr IV . Q10H [facility] Rx#:[id number] Oral 1540 Output: Gastric Drainage 250 Drainage 10 30 Abdomen 10 30 Urine 1150 1250 Other: # Bowel Movements 1 - Exam GENERAL DESCRIPTION:[ Patient is awake and alert in no distress] HEENT: [Oral mucosa is dry and no pharyngeal erythema] RESPIRATORY SYSTEM: [Unlabored breathing decreased. The base] CARDIA VASCULAR SYSTEM: [S1-S2 regular rate and rhythm no murmur] GI: [Abdominal soft no significant tenderness EXTREMITIES: [No edema feet] - Labs CBC & Chem 7: 07/01/21 05:56 06/29/21 07:41 Labs: Abnormal Lab Results - Last 24 Hours (Table) 06/30/21 06/30/21 06/30/21 Range/Units 06:23 07:45 11:27 RBC 2.59 L (4.30-5.90) m/uL Hgb 7.9 L (13.0-17.5) gm/dL Hct 25.4 L (39.0-53.0) % RDW 16.0 H (11.5-15.5) % Neutrophils # 7.9 H (1.3-7.7) k/uL Lymphocytes # 0.6 L (1.0-4.8) k/uL POC Glucose (mg/dL) 102 H 101 H (75-99) mg/dL Assessment and Plan (1) Incisional infection Current Visit: Yes Status: Acute Code(s): T81.49XA - INFECTION FOLLOWING A PROCEDURE, OTHER SURGICAL SITE, INIT SNOMED Code(s): 20009792 Plan: 1-patient admitted to the hospital with abdominal pain with abdominal incision dehiscence and concern for possible deep infection, and this patient who is status post exploratory laparotomy status post right colectomy and small bowel resection ileostomy and drainage of the abscess, no OR cultures were done superficial abdominal cultures showed E. coli and anaerobes, patient is currently being treated with the Zosyn white count is normal continue with IV Zosyn while inpatient and plan to finish therapy with oral antibiotics Time with Patient: Less than 30
--- NOTE | 2021-07-01 22:04 | P.PN ---
Subjective Progress Note Date: 07/01/21 Principal diagnosis: Abdominal wound infection Patient is 41 year male with a past medical history significant for Crohn's disease in this patient who recently did have a laparotomy for abdominal abscess, no readmitted to the hospital with abdominal pain and concern for abdominal wound dehiscence and possible infection. Patient was taken to the OR 06/21/2021 patient is status post laparotomy right colectomy and ileostomy and drainage of abdominal abscess On today's evaluation that is 07/01/2021, the patient did spike a fever of 101F last night I was not notified and no cultures has been done patient did have some purulent drainage in his ADRIAN drainage, the patient denies having any chest pain shortness of breath or cough. Denies any abdominal pain no nausea no vomiting and did have output in his colostomy bag Objective - Vital Signs Vital signs: Vital Signs Temp 98.0 F 07/01/21 14:00 Pulse 90 07/01/21 14:00 Resp 18 07/01/21 14:00 BP 100/67 07/01/21 14:00 Pulse Ox 93 L 07/01/21 15:48 Intake & Output 07/01/21 07/01/21 07/02/21 06:59 18:59 06:59 Intake Total 850 Output Total 230 1785 Balance 620 -1785 Intake: IV 100 Piperacillin-Tazobactam 3 100 .375 gm In Sodium Chloride 0.9% 100 ml @ 25 mls/hr IVPB Q8HR [facility] Rx# :[id number] Oral 750 Output: Gastric Drainage 200 Drainage 30 35 Abdomen 30 35 Urine 1200 Stool 550 Other: # Voids 4 1 - Exam GENERAL DESCRIPTION:[ Patient is awake and alert in no distress] HEENT: [Oral mucosa is dry and no pharyngeal erythema] RESPIRATORY SYSTEM: [Unlabored breathing decreased. The base] CARDIA VASCULAR SYSTEM: [S1-S2 regular rate and rhythm no murmur] GI: [Abdominal soft no significant tenderness EXTREMITIES: [No edema feet] - Labs CBC & Chem 7: 07/01/21 05:56 06/29/21 07:41 Labs: Abnormal Lab Results - Last 24 Hours (Table) 07/01/21 07/01/21 07/01/21 Range/Units 05:56 12:24 16:41 RBC 2.46 L (4.40-5.60) X 10*6/uL Hgb 7.1 L (13.0-17.0) g/dL Hct 23.2 L (39.6-50.0) % MCHC 30.6 L (32.0-37.0) g/dL RDW 17.2 H (11.5-14.5) % Immature Gran # 0.16 H (0.00-0.04) X 10*3/uL Lymphocytes # 0.79 L (0.90-5.00) X 10*3/uL POC Glucose (mg/dL) 107 H 115 H (75-99) mg/dL 07/01/21 Range/Units 21:18 RBC (4.40-5.60) X 10*6/uL Hgb (13.0-17.0) g/dL Hct (39.6-50.0) % MCHC (32.0-37.0) g/dL RDW (11.5-14.5) % Immature Gran # (0.00-0.04) X 10*3/uL Lymphocytes # (0.90-5.00) X 10*3/uL POC Glucose (mg/dL) 102 H (75-99) mg/dL Assessment and Plan (1) Incisional infection Current Visit: Yes Status: Acute Code(s): T81.49XA - INFECTION FOLLOWING A PROCEDURE, OTHER SURGICAL SITE, INIT SNOMED Code(s): 52196027 Plan: 1-patient admitted to the hospital with abdominal pain with abdominal incision dehiscence and concern for possible deep infection, and this patient who is status post exploratory laparotomy status post right colectomy and small bowel resection ileostomy and drainage of the abscess, no OR cultures were done superficial abdominal cultures showed E. coli and anaerobes, patient was doing well however did have a fever last night which is concerning unfortunately no cultures were done and we will go ahead and obtain blood cultures and check his inflammatory markers, discontinue Zosyn. The patient on vancomycin and Rocephin and Flagyl with adjustment antibiotic further on the basis of culture report Time with Patient: Less than 30
[2021-07-01] MEDS ORDERED: VANCOMYCIN 2,000 MG in SODIUM CHLORIDE 0.9% 500 ML 500 ML IVPB ONE (23:00)
[2021-07-01] MEDS: metroNIDAZOLE 500 MG TAB PO SCH (23:10)
[2021-07-02] MEDS: HYDROmorphone 1 MG/ML 1 ML SYRINGE IVP PRN ×6 (01:09→20:00)
[2021-07-02 07:12] LABS: Glucose,Whole Blood 99 mg/dL (75-99)
[2021-07-02] MEDS: INSULIN ASPART (NovoLOG) 100 UNIT/ML VIAL SQ SCH ×4 (09:13→22:18)
[2021-07-02] MEDS: metroNIDAZOLE 500 MG TAB PO SCH ×3 (09:23→22:20)
[2021-07-02] MEDS: PANTOPRAZOLE 40 MG TABLET PO SCH (09:23)
[2021-07-02] MEDS: ENOXAPARIN 40 MG/0.4 ML SYRINGE SQ SCH (09:24)
[2021-07-02] MEDS: VANCOMYCIN 1,750 MG in SODIUM CHLORIDE 0.9% 500 ML 500 ML IVPB SCH ×2 (09:25→16:31)
[2021-07-02 11:16] LABS: Basophils # (A) 0.01 X 10*3/uL (0.00-0.10); Basophils % (A) 0.1 %; Eosinophils # (A) 0.06 X 10*3/uL (0.04-0.35); Eosinophils % (A) 0.6 %; Immature Grans, Automated 1.7 %; Lymphocytes # (A) 0.79 X 10*3/uL (0.90-5.00); Lymphocytes % (A) 8.4 %; MCH 28.3 pg (27.0-32.0); MCHC 30.4 g/dL (32.0-37.0); MCV 93.1 fL (80.0-97.0); Mean Platelet Volume 9.6 fL (9.5-12.2); Monocytes # (A) 0.56 X 10*3/uL (0.20-1.00); NRBC Per 100 WBC 0 /100 WBCS (0.0-0.0); Neutrophils # (A) 7.83 X 10*3/uL (1.80-7.70); Neutrophils % (A) 83.2 %; Platelet Count 306 X 10*3/uL (140-440); RBC 2.47 X 10*6/uL (4.40-5.60); RDW 17.2 % (11.5-14.5); WBC 9.41 X 10*3/uL (4.50-10.00)
[2021-07-02 11:22] LABS: African American GFR (CKD) 140.1 (60.0-200.0); Albumin 2.2 g/dL (3.8-4.9); Albumin/Globulin Ratio 0.7 (1.60-3.17); Anion Gap 10.9 mmol/L (10.00-18.00); BUN/Creat Ratio 11.48 Ratio (12.00-20.00); Blood Urea Nitrogen 7.5 mg/dL (9.0-27.0); C Reactive Protein 23.8 mg/dL (0.00-0.80); Calcium 7.6 mg/dL (8.7-10.3); Carbon Dioxide 23.4 mmol/L (20.0-27.5); Globulin 3.1 g/dL (1.6-3.3); Non-African American GFR(CKD) 120.8 (60.0-200.0); Potassium 3.8 mmol/L (3.5-5.5); Total Bilirubin 1.4 mg/dL (0.30-1.20); Total Protein 5.3 g/dL (6.2-8.2)
--- NOTE | 2021-07-02 11:43 | P.PN ---
Subjective Progress Note Date: 07/02/21 Principal diagnosis: Crohn's disease Patient seems to be doing better. Says he has little pain. Tolerating regular diet. Good ileostomy function. White blood cell count 9.4, hemoglobin 7.0. Objective - Vital Signs Vital signs: Vital Signs Temp 98.0 F 07/02/21 09:18 Pulse 97 07/02/21 09:18 Resp 18 07/02/21 09:18 BP 110/72 07/02/21 09:18 Pulse Ox 95 07/02/21 09:18 Intake & Output 07/01/21 07/02/21 07/02/21 18:59 06:59 18:59 Output Total 1785 1560 20 Balance -1785 -1560 -20 Output: Drainage 35 60 20 Abdomen 35 60 20 Urine 1200 900 Stool 550 600 Other: Voiding Method Urinal Urinal # Voids 1 1 - Exam Abdomen: Soft, nondistended, minimal tenderness, wound clean, retention sutures in place, ileostomy functioning, ADRIAN with some seropurulent drainage - Labs CBC & Chem 7: 07/02/21 07:28 07/02/21 07:28 Labs: Abnormal Lab Results - Last 24 Hours (Table) 07/01/21 07/01/21 07/01/21 Range/Units 12:24 16:41 21:18 RBC (4.40-5.60) X 10*6/uL Hgb (13.0-17.0) g/dL Hct (39.6-50.0) % MCHC (32.0-37.0) g/dL RDW (11.5-14.5) % Immature Gran # (0.00-0.04) X 10*3/uL Neutrophils # (1.80-7.70) X 10*3/uL Lymphocytes # (0.90-5.00) X 10*3/uL Sodium (135-145) mmol/L BUN (9.0-27.0) mg/dL BUN/Creatinine Ratio (12.00-20.00) Ratio POC Glucose (mg/dL) 107 H 115 H 102 H (75-99) mg/dL Calcium (8.7-10.3) mg/dL Total Bilirubin (0.30-1.20) mg/dL Alkaline Phosphatase (41-126) U/L C-Reactive Protein (0.00-0.80) mg/dL Total Protein (6.2-8.2) g/dL Albumin (3.8-4.9) g/dL Albumin/Globulin Ratio (1.60-3.17) g/dL 07/02/21 07/02/21 Range/Units 07:28 07:28 RBC 2.47 L (4.40-5.60) X 10*6/uL Hgb 7.0 L (13.0-17.0) g/dL Hct 23.0 L (39.6-50.0) % MCHC 30.4 L (32.0-37.0) g/dL RDW 17.2 H (11.5-14.5) % Immature Gran # 0.16 H (0.00-0.04) X 10*3/uL Neutrophils # 7.83 H (1.80-7.70) X 10*3/uL Lymphocytes # 0.79 L (0.90-5.00) X 10*3/uL Sodium 131 L (135-145) mmol/L BUN 7.5 L (9.0-27.0) mg/dL BUN/Creatinine Ratio 11.48 L (12.00-20.00) Ratio POC Glucose (mg/dL) (75-99) mg/dL Calcium 7.6 L (8.7-10.3) mg/dL Total Bilirubin 1.40 H (0.30-1.20) mg/dL Alkaline Phosphatase 133 H (41-126) U/L C-Reactive Protein 23.80 H (0.00-0.80) mg/dL Total Protein 5.3 L (6.2-8.2) g/dL Albumin 2.2 L (3.8-4.9) g/dL Albumin/Globulin Ratio 0.70 L (1.60-3.17) g/dL Assessment and Plan (1) Incisional infection Narrative/Plan: Chronically patient seems to be improving gradually. Continue regular diet. Continue increasing activity. Antibiotics per infectious disease. Current Visit: Yes Status: Acute Code(s): T81.49XA - INFECTION FOLLOWING A PROCEDURE, OTHER SURGICAL SITE, INIT SNOMED Code(s): 09982822
[2021-07-02 12:07] LABS: Glucose,Whole Blood 110 mg/dL (75-99)
[2021-07-02] MEDS: SODIUM CHLORIDE 0.9% 1,000 ML IV SCH (16:32)
[2021-07-02 17:24] LABS: Glucose,Whole Blood 99 mg/dL (75-99)
[2021-07-02 20:47] LABS: Glucose,Whole Blood 91 mg/dL (75-99)
[2021-07-02] MEDS: MELATONIN 3 MG TABLET PO SCH (22:18)
--- NOTE | 2021-07-02 23:25 | P.PN ---
Subjective Progress Note Date: 07/02/21 41-year-old male with history of Crohn's disease and abscess had a ileocolectomy on 05/28/2021 subsequently discharged to [facility] patient rehabitation patient won't cultures during previous hospital physicians showed E. coli and Keke patient to complete the treatment with Augmentin and Diflucan. I did evaluate this patient at [facility] rehabilitation at that time I obtain the cultures as there was concern about new infection in the surgical site area will obtain those cultures, infectious disease evaluated the patient there. Patient was subsequently discharged. came in with the increase the pain and infection of the surgical site area now. Patient had a CT of the abdomen which is concerning for ileus although patient was having normal bowel movements. Patient is hyponatremic. Patient will sugars are highly elevated lower obtain hemoglobin and patient was started on insulin regimen along with sliding scale. 06/21/2021 Patient was evaluated by general surgery and the infectious disease. There is mild area of redness, infectious disease doesn't believe patient has significant superficial infection there is no evidence of abscesses on the CT either although patient may need only back as per infectious disease cultures are pending patient is being can urine Zosyn. 06/22/2021 Patient is found to have pneumoperitoneum later in the day and patient underwent emergent laparotomy. With a small bowel resection and right colectomy and ileostomy. Patient is presently intubated on mechanical ventilator with the assist-control ventilation with respiratory rate of 14 and tidal volume of 6 and FiO2 of 40% PEEP of 8 patient is on propofol for sedation white blood cell count went up to 22,000 from normal white count, colostomy is empty at this time. 06/23/2021 Patient is extubated today patient is presently on 5 L of oxygen is alert awake alert oriented 3 patient White blood cell count has come down. And presently 10,900. Patient has a Wheeler catheter urine output around 50-60 mL per hour. Patient is off pressor support. 06/24/2021 This is a pleasant 41 years old male who was recently discharged from the hospital for intra-abdominal infection presents with incisional infection and abdominal wound dehiscence and he underwent exploratory laparotomy status post right colectomy and small bowel resection with ileostomy and drainage of an abscess. He is covered with Zosyn. Once culture was growing E. coli and an air MICROORGANISMS. Also he is on normal saline. He is awake and alert, not in distress. He is on a clear liquid diet. No nausea vomiting. As mild abdominal pain, no abdominal distention and it makes little bowel movement. Hemoglobin drops 7 down to 6.1 today and he got one unit of blood transfusion and we will check hemoglobin the morning. 06/25/2021 Patient generally doing well, he was transferred to the general medical floor. He tolerates clear liquid diet and it was advanced today. Liquid diet. No vomiting, little expected abdominal pain. He has some loose bowel movement does not look C. diff but to go to check anyway. His hemoglobin was 6.1 yesterday and after 1 unit of blood transfusion went up to 6.6 but because of shortness and supply the couple for transfusion nowadays is 6.5 in this facility. We repeated hemoglobin and is stable at 6.8 and slightly improving referral keep monitoring for now. Patient with no overt signs of bleeding currently. Also surgery team on the case. No more fever. Chest x-ray showing no definite lung capacity per radiologist. Remains on Zosyn and normal saline at 100 mL per hour. Also TPN 06/26/2021 Patient with infected incisional wound and possible deep intra-abdominal infection and his been treated with Zosyn and improving gradually. He has no abdominal pain, he is tolerating his full liquid diet well. No vomiting. He has some loose bowel movement. He remains on TPN. Wheeler catheter is discontinue it and we are checking bladder scan We'll check C. diff although suspicion is low Patient himself feels better and he looks pleased with the dissection of his ill ness going to. All his questions answered 06/27/2021 Patient awake and alert and hemodynamically stable however his hemoglobin was low at 6.4 and received one unit of blood transfusion. Other than that her medicine TPN which is started to be tapered down by surgery team and the meantime he remains on liquid diet per surgery team. Colostomy back was showing some brown stool although still loose but not liquid as before. Looks like patient improving gradually. He remains on Zosyn. 06/28/2021 Patient kept on liquid diet tolerating diet well. Distal ileostomy back working slowly area at the patient with minimal abdominal pain. However he developed significant anemia yesterday needing one unit of blood transfusion and currently his hemoglobin 7.7. TPN been tapered down until discontinued while encourage oral intake gradually. And he remains on antibiotics of Zosyn to cover intra-abdominal infection Wheeler catheter was discontinued 2 days ago, his pain well. However we'll check postvoid residual 06/29/2021 Patient evaluated today sitting up in chair. Denies acute events overnight, denies abdominal pain. Passing gas from ostomy, staff is emptying ostomy currently. Patient states next session will come in for training and he is hoping to be comfortable resuming care of the ostomy. Labs today show WBC 9.42, hemoglobin 7.7, platelets 257, calcium 7.9, total bili 1.50, total protein 5.1, albumin 2.3. Afebrile, heart rate 97, blood pressure 120/77, 99% on 2L NC which he states he is using as needed more so ate night. He is getting up to 1500 on his IS encouraged to keep using and to ambulate as tolerated. Full liquid diet with ensure, on average eating about 50% of meals. Continues on IV zosyn. Plan for [facility] on discharge once medically stable. 06/30/2021 Patient values today sitting up in a chair, no acute events overnight he did work with physical therapy and is having increased abdominal pain requesting pain medication. Using his incentive spirometer, abdominal packing in place, ostomy with stool he states he is passing more gas than stool today. Labs today show stable hemoglobin 7.9, blood sugar in the 100s. He is off the TPN and now on full liquid diet with ensure working on increasing his oral intake. Vital stable, afebrile, heart rate 99, blood pressure 106/68 and he is 98% on 2 L nasal cannula. 07/01/2021 Patient evaluated today resting in bed. He did have a fever, 100.3 throughout the night that he said finally broke around midnight. Fever free since. Blood pressure on the lower side at 100/67, heart rate 90, 99% on room air. He is on IV Zosyn. Labs today show stable white count 8.42, hemoglobin 7.1, platelet count 243. Blood sugars in the 100s. Ostomy care completed with teaching and patient was able to semi-participate. Otherwise no acute events overnight. Encourage incentive spirometry use and continued ambulation. 07/02/2021 Patient continues with low grade fevers throughout the night, none today, using IS more frequently. Next ostomy change planned for sunday with patient hoping to be more hands on. Tolerating diet, discussed other options from kitchen and bringing food as well he is hoping to be able to increase his meal intake. WBC today 9.41, hemoglobin 7.0, platelets 306, sodium 131, potassium 3.8, BUN 7.5, creatinine 0.7, glucose in the 90's, calcium 7.6, total trevin 1.4, alk phos 133, CRP 23.80, Procalcitonin today 1.57. Heart rate in the high 90's to low 100's, blood pressure on the softer side 90's/60's, on room air. Antiobiotics adjusted by ID, patient now on IV rocephin, IV vancomycin. ROS Constitutional: Reports generalized weakness, Reports fever Cardio vascular: denied any chest pain, palpitations Gastrointestinal denied any nausea vomiting, reports stools through ostomy, a bdominal pain Pulmonary: Denied any shortness of breath cough Neurologic denied any new focal deficits All inpatient medications were reviewed and appropriate changes in these medications as dictated in the interval history and assessment and plan. PHYSICAL EXAMINATION: GENERAL: The patient is alert and oriented x3, not in any acute distress. Well developed, well nourished. HEENT: Pupils are round and equally reacting to light. EOMI. No scleral icterus. No conjunctival pallor. Normocephalic, atraumatic. No pharyngeal erythema. No thyromegaly. CARDIOVASCULAR: S1 and S2 present. No murmurs, rubs, or gallops. PULMONARY: Chest is clear to auscultation, no wheezing or crackles. ABDOMEN: Soft, tender, nondistended, normoactive bowel sounds. No palpable organomegaly. Post surgical abdomen with midline incision and ostomy MUSCULOSKELETAL: No joint swelling or deformity. EXTREMITIES: No cyanosis, clubbing, or pedal edema. NEUROLOGICAL: Gross neurological examination did not reveal any focal deficits. SKIN: No rashes. Assessment and Plan Assessment -Bowel perforation had ileus on admission. Post op day #11 laparotomy and small bowel resection, right colectomy ileostomy . Patient now on IV Vanco, IV rocephin with procalcitonin elevated at 1.57, CRP elevated. -Hyponatremia due to poor oral intake -History of Crohn's disease status post redo colectomy a few weeks ago -Leukocytosis secondary to sepsis, bowel perforation wound cultures are showing gram-negative bacilli this is from the surgical wound from his previous surgery, cultures showing E.Coli, luekocytosis resolved -Anemia; s/p 2 units PRBC hgb currently 7.0, unclear etiology, no evidence for acute bleeding. -History tobacco use, quit in 2020 -Obesity GI Prophylaxis Protonix DVT Prophylaxis Lovenox FULL CODE Plan Pt advanced to regular diet by primary Increase activity level Encourage IS use Continue with IV antibiotics per ID IV fluids Pain Mang[facility] Rehab on discharge Thank you for this consultation we will continue to follow along this admission. Objective - Vital Signs Vital signs: Vital Signs Temp 98.0 F 07/02/21 09:18 Pulse 97 07/02/21 09:18 Resp 18 07/02/21 09:18 BP 110/72 07/02/21 09:18 Pulse Ox 95 07/02/21 09:18 Intake & Output 07/01/21 07/02/21 07/02/21 18:59 06:59 18:59 Output Total 1785 1560 20 Balance -1785 -1560 -20 Output: Drainage 35 60 20 Abdomen 35 60 20 Urine 1200 900 Stool 550 600 Other: Voiding Method Urinal Urinal # Voids 1 1 - Labs CBC & Chem 7: 07/02/21 07:28 07/02/21 07:28 Labs: Abnormal Lab Results - Last 24 Hours (Table) 07/01/21 07/01/21 07/01/21 Range/Units 12:24 16:41 21:18 RBC (4.40-5.60) X 10*6/uL Hgb (13.0-17.0) g/dL Hct (39.6-50.0) % MCHC (32.0-37.0) g/dL RDW (11.5-14.5) % Immature Gran # (0.00-0.04) X 10*3/uL Neutrophils # (1.80-7.70) X 10*3/uL Lymphocytes # (0.90-5.00) X 10*3/uL Sodium (135-145) mmol/L BUN (9.0-27.0) mg/dL BUN/Creatinine Ratio (12.00-20.00) Ratio POC Glucose (mg/dL) 107 H 115 H 102 H (75-99) mg/dL Calcium (8.7-10.3) mg/dL Total Bilirubin (0.30-1.20) mg/dL Alkaline Phosphatase (41-126) U/L C-Reactive Protein (0.00-0.80) mg/dL Total Protein (6.2-8.2) g/dL Albumin (3.8-4.9) g/dL Albumin/Globulin Ratio (1.60-3.17) g/dL 07/02/21 07/02/21 Range/Units 07:28 07:28 RBC 2.47 L (4.40-5.60) X 10*6/uL Hgb 7.0 L (13.0-17.0) g/dL Hct 23.0 L (39.6-50.0) % MCHC 30.4 L (32.0-37.0) g/dL RDW 17.2 H (11.5-14.5) % Immature Gran # 0.16 H (0.00-0.04) X 10*3/uL Neutrophils # 7.83 H (1.80-7.70) X 10*3/uL Lymphocytes # 0.79 L (0.90-5.00) X 10*3/uL Sodium 131 L (135-145) mmol/L BUN 7.5 L (9.0-27.0) mg/dL BUN/Creatinine Ratio 11.48 L (12.00-20.00) Ratio POC Glucose (mg/dL) (75-99) mg/dL Calcium 7.6 L (8.7-10.3) mg/dL Total Bilirubin 1.40 H (0.30-1.20) mg/dL Alkaline Phosphatase 133 H (41-126) U/L C-Reactive Protein 23.80 H (0.00-0.80) mg/dL Total Protein 5.3 L (6.2-8.2) g/dL Albumin 2.2 L (3.8-4.9) g/dL Albumin/Globulin Ratio 0.70 L (1.60-3.17) g/dL
[2021-07-03] MEDS: VANCOMYCIN 1,750 MG in SODIUM CHLORIDE 0.9% 500 ML 500 ML IVPB SCH ×3 (00:18→17:33)
[2021-07-03] MEDS: traMADol 50 MG TAB PO PRN (00:26)
[2021-07-03] MEDS: HYDROmorphone 1 MG/ML 1 ML SYRINGE IVP PRN ×5 (01:33→20:52)
[2021-07-03 06:29] LABS: African American GFR (CKD) >90 (>60 ml/min/1.73 sqM); Anion Gap 7 mmol/L; Blood Urea Nitrogen 6 mg/dL (9-20); Calcium 7.6 mg/dL (8.4-10.2); Carbon Dioxide 23 mmol/L (22-30); Chloride 101 mmol/L (98-107); Glucose 94 mg/dL (74-99); Non-African American GFR(CKD) >90 (>60 ml/min/1.73 sqM); Potassium 3.7 mmol/L (3.5-5.1); Sodium 131 mmol/L (137-145)
[2021-07-03 07:09] LABS: Glucose,Whole Blood 100 mg/dL (75-99)
[2021-07-03] MEDS: INSULIN ASPART (NovoLOG) 100 UNIT/ML VIAL SQ SCH ×4 (07:36→21:18)
[2021-07-03] MEDS: metroNIDAZOLE 500 MG TAB PO SCH ×3 (07:46→20:52)
[2021-07-03] MEDS: PANTOPRAZOLE 40 MG TABLET PO SCH (07:46)
[2021-07-03] MEDS: SODIUM CHLORIDE 0.9% 1,000 ML IV SCH (07:47)
[2021-07-03] MEDS: ENOXAPARIN 40 MG/0.4 ML SYRINGE SQ SCH (07:47)
[2021-07-03 09:10] LABS: Basophils # (A) 0.02 X 10*3/uL (0.00-0.10); Basophils % (A) 0.2 %; Eosinophils # (A) 0.06 X 10*3/uL (0.04-0.35); Eosinophils % (A) 0.6 %; HGB 7.2 g/dL (13.0-17.0); Immature Grans, Automated 1.8 %; Lymphocytes # (A) 0.99 X 10*3/uL (0.90-5.00); Lymphocytes % (A) 10.3 %; MCV 93.4 fL (80.0-97.0); Mean Platelet Volume 9.5 fL (9.5-12.2); Monocytes # (A) 0.57 X 10*3/uL (0.20-1.00); Monocytes % (A) 5.9 %; NRBC Per 100 WBC 0 /100 WBCS (0.0-0.0); Neutrophils # (A) 7.83 X 10*3/uL (1.80-7.70); Neutrophils % (A) 81.2 %; Platelet Count 365 X 10*3/uL (140-440); RBC 2.57 X 10*6/uL (4.40-5.60); RDW 17.4 % (11.5-14.5); WBC 9.64 X 10*3/uL (4.50-10.00)
[2021-07-03] MEDS ORDERED: POTASSIUM CHLORIDE ER 20 MEQ TAB.ER PO SCH (10:00)
[2021-07-03 11:52] LABS: Glucose,Whole Blood 105 mg/dL (75-99)
--- NOTE | 2021-07-03 12:54 | P.PN ---
Subjective Progress Note Date: 07/03/21 Principal diagnosis: Crohn's disease Patient doing well today. Tolerating diet. Appetite is somewhat diminished. White blood cell count normal at 9.6. Patient is afebrile. Objective - Vital Signs Vital signs: Vital Signs Temp 98.6 F 07/03/21 07:07 Pulse 93 07/03/21 07:07 Resp 18 07/03/21 02:55 BP 115/74 07/03/21 07:07 Pulse Ox 95 07/03/21 07:07 Intake & Output 07/02/21 07/03/21 07/03/21 18:59 06:59 18:59 Intake Total 500 2100 720 Output Total 460 1680 860 Balance 40 420 -140 Intake: IV 500 600 Sodium Chloride 0.9% 1, 500 600 000 ml @ 50 mls/hr IV . Q20H [facility] Rx#:[id number] Intake, IV Titration 500 Amount Vancomycin 1,750 mg In 500 Sodium Chloride 0.9% 500 ml 500 ml @ 167 mls/hr IVPB Q8H [facility] Rx#: [id number] Oral 1000 720 Output: Drainage 40 30 10 Abdomen 40 30 10 Urine 420 1400 650 Stool 250 200 Other: Voiding Method Urinal Urinal # Voids 1 - Exam Abdomen: Soft, mild diffuse tenderness, wound clean, ostomy functioning, ADRIAN drain small amount of purulent drainage - Labs CBC & Chem 7: 07/03/21 05:31 07/03/21 05:31 Labs: Abnormal Lab Results - Last 24 Hours (Table) 07/03/21 07/03/21 07/03/21 Range/Units 05:31 05:31 07:08 RBC 2.57 L (4.40-5.60) X 10*6/uL Hgb 7.2 L (13.0-17.0) g/dL Hct 24.0 L (39.6-50.0) % MCHC 30.0 L (32.0-37.0) g/dL RDW 17.4 H (11.5-14.5) % Immature Gran # 0.17 H (0.00-0.04) X 10*3/uL Neutrophils # 7.83 H (1.80-7.70) X 10*3/uL Sodium 131 L (137-145) mmol/L BUN 6 L (9-20) mg/dL POC Glucose (mg/dL) 100 H (75-99) mg/dL Calcium 7.6 L (8.4-10.2) mg/dL 07/03/21 Range/Units 11:50 RBC (4.40-5.60) X 10*6/uL Hgb (13.0-17.0) g/dL Hct (39.6-50.0) % MCHC (32.0-37.0) g/dL RDW (11.5-14.5) % Immature Gran # (0.00-0.04) X 10*3/uL Neutrophils # (1.80-7.70) X 10*3/uL Sodium (137-145) mmol/L BUN (9-20) mg/dL POC Glucose (mg/dL) 105 H (75-99) mg/dL Calcium (8.4-10.2) mg/dL Microbiology - Last 24 Hours (Table) 07/01/21 22:27 Blood Culture - Preliminary Blood No Growth after 24 hours Assessment and Plan (1) Incisional infection Narrative/Plan: Patient is doing about the same. Continue antibiotics and local wound care. Follow cultures. Continue regular diet. Discharge planning. Current Visit: Yes Status: Acute Code(s): T81.49XA - INFECTION FOLLOWING A PROCEDURE, OTHER SURGICAL SITE, INIT SNOMED Code(s): 52833843
[2021-07-03] MEDS ORDERED: VANCOMYCIN TROUGH DUE 1 EACH MISC MISCELLANE ONE (15:00)
--- NOTE | 2021-07-03 15:02 | P.PN ---
Subjective Progress Note Date: 07/03/21 41-year-old male with history of Crohn's disease and abscess had a ileocolectomy on 05/28/2021 subsequently discharged to [facility] patient rehabitation patient won't cultures during previous hospital physicians showed E. coli and Keke patient to complete the treatment with Augmentin and Diflucan. I did evaluate this patient at [facility] rehabilitation at that time I obtain the cultures as there was concern about new infection in the surgical site area will obtain those cultures, infectious disease evaluated the patient there. Patient was subsequently discharged. came in with the increase the pain and infection of the surgical site area now. Patient had a CT of the abdomen which is concerning for ileus although patient was having normal bowel movements. Patient is hyponatremic. Patient will sugars are highly elevated lower obtain hemoglobin and patient was started on insulin regimen along with sliding scale. 06/21/2021 Patient was evaluated by general surgery and the infectious disease. There is mild area of redness, infectious disease doesn't believe patient has significant superficial infection there is no evidence of abscesses on the CT either although patient may need only back as per infectious disease cultures are pending patient is being can urine Zosyn. 06/22/2021 Patient is found to have pneumoperitoneum later in the day and patient underwent emergent laparotomy. With a small bowel resection and right colectomy and ileostomy. Patient is presently intubated on mechanical ventilator with the assist-control ventilation with respiratory rate of 14 and tidal volume of 6 and FiO2 of 40% PEEP of 8 patient is on propofol for sedation white blood cell count went up to 22,000 from normal white count, colostomy is empty at this time. 06/23/2021 Patient is extubated today patient is presently on 5 L of oxygen is alert awake alert oriented 3 patient White blood cell count has come down. And presently 10,900. Patient has a Wheeler catheter urine output around 50-60 mL per hour. Patient is off pressor support. 06/24/2021 This is a pleasant 41 years old male who was recently discharged from the hospital for intra-abdominal infection presents with incisional infection and abdominal wound dehiscence and he underwent exploratory laparotomy status post right colectomy and small bowel resection with ileostomy and drainage of an abscess. He is covered with Zosyn. Once culture was growing E. coli and an air MICROORGANISMS. Also he is on normal saline. He is awake and alert, not in distress. He is on a clear liquid diet. No nausea vomiting. As mild abdominal pain, no abdominal distention and it makes little bowel movement. Hemoglobin drops 7 down to 6.1 today and he got one unit of blood transfusion and we will check hemoglobin the morning. 06/25/2021 Patient generally doing well, he was transferred to the general medical floor. He tolerates clear liquid diet and it was advanced today. Liquid diet. No vomiting, little expected abdominal pain. He has some loose bowel movement does not look C. diff but to go to check anyway. His hemoglobin was 6.1 yesterday and after 1 unit of blood transfusion went up to 6.6 but because of shortness and supply the couple for transfusion nowadays is 6.5 in this facility. We repeated hemoglobin and is stable at 6.8 and slightly improving referral keep monitoring for now. Patient with no overt signs of bleeding currently. Also surgery team on the case. No more fever. Chest x-ray showing no definite lung capacity per radiologist. Remains on Zosyn and normal saline at 100 mL per hour. Also TPN 06/26/2021 Patient with infected incisional wound and possible deep intra-abdominal infection and his been treated with Zosyn and improving gradually. He has no abdominal pain, he is tolerating his full liquid diet well. No vomiting. He has some loose bowel movement. He remains on TPN. Wheeler catheter is discontinue it and we are checking bladder scan We'll check C. diff although suspicion is low Patient himself feels better and he looks pleased with the dissection of his ill ness going to. All his questions answered 06/27/2021 Patient awake and alert and hemodynamically stable however his hemoglobin was low at 6.4 and received one unit of blood transfusion. Other than that her medicine TPN which is started to be tapered down by surgery team and the meantime he remains on liquid diet per surgery team. Colostomy back was showing some brown stool although still loose but not liquid as before. Looks like patient improving gradually. He remains on Zosyn. 06/28/2021 Patient kept on liquid diet tolerating diet well. Distal ileostomy back working slowly area at the patient with minimal abdominal pain. However he developed significant anemia yesterday needing one unit of blood transfusion and currently his hemoglobin 7.7. TPN been tapered down until discontinued while encourage oral intake gradually. And he remains on antibiotics of Zosyn to cover intra-abdominal infection Wheeler catheter was discontinued 2 days ago, his pain well. However we'll check postvoid residual 06/29/2021 Patient evaluated today sitting up in chair. Denies acute events overnight, denies abdominal pain. Passing gas from ostomy, staff is emptying ostomy currently. Patient states next session will come in for training and he is hoping to be comfortable resuming care of the ostomy. Labs today show WBC 9.42, hemoglobin 7.7, platelets 257, calcium 7.9, total bili 1.50, total protein 5.1, albumin 2.3. Afebrile, heart rate 97, blood pressure 120/77, 99% on 2L NC which he states he is using as needed more so ate night. He is getting up to 1500 on his IS encouraged to keep using and to ambulate as tolerated. Full liquid diet with ensure, on average eating about 50% of meals. Continues on IV zosyn. Plan for [facility] on discharge once medically stable. 06/30/2021 Patient values today sitting up in a chair, no acute events overnight he did work with physical therapy and is having increased abdominal pain requesting pain medication. Using his incentive spirometer, abdominal packing in place, ostomy with stool he states he is passing more gas than stool today. Labs today show stable hemoglobin 7.9, blood sugar in the 100s. He is off the TPN and now on full liquid diet with ensure working on increasing his oral intake. Vital stable, afebrile, heart rate 99, blood pressure 106/68 and he is 98% on 2 L nasal cannula. 07/01/2021 Patient evaluated today resting in bed. He did have a fever, 100.3 throughout the night that he said finally broke around midnight. Fever free since. Blood pressure on the lower side at 100/67, heart rate 90, 99% on room air. He is on IV Zosyn. Labs today show stable white count 8.42, hemoglobin 7.1, platelet count 243. Blood sugars in the 100s. Ostomy care completed with teaching and patient was able to semi-participate. Otherwise no acute events overnight. Encourage incentive spirometry use and continued ambulation. 07/02/2021 Patient continues with low grade fevers throughout the night, none today, using IS more frequently. Next ostomy change planned for sunday with patient hoping to be more hands on. Tolerating diet, discussed other options from kitchen and bringing food as well he is hoping to be able to increase his meal intake. WBC today 9.41, hemoglobin 7.0, platelets 306, sodium 131, potassium 3.8, BUN 7.5, creatinine 0.7, glucose in the 90's, calcium 7.6, total trevin 1.4, alk phos 133, CRP 23.80, Procalcitonin today 1.57. Heart rate in the high 90's to low 100's, blood pressure on the softer side 90's/60's, on room air. Antiobiotics adjusted by ID, patient now on IV rocephin, IV vancomycin. 07/03/2021 Patient evaluated today resting in bed. No more fevers. Encourage oral intake ambulation and IS. Antibiotics in the form of IV Unasyn as his cultures are showing anaerobes, as well as E. coli without drug resistance. Blood cultures are negative so far. Labs today white count 9.64, hemoglobin 7.2, sodium 131, potassium 3.7, BUN 6, creatinine 0.75, blood sugars in the 100s. Heart rate 93, blood pressure 115/74, 95% room air. ROS Constitutional: Reports generalized weakness, Reports fever Cardio vascular: denied any chest pain, palpitations Gastrointestinal denied any nausea vomiting, reports stools through ostomy, abdominal pain Pulmonary: Denied any shortness of breath cough Neurologic denied any new focal deficits All inpatient medications were reviewed and appropriate changes in these medications as dictated in the interval history and assessment and plan. PHYSICAL EXAMINATION: GENERAL: The patient is alert and oriented x3, not in any acute distress. Well d eveloped, well nourished. HEENT: Pupils are round and equally reacting to light. EOMI. No scleral icterus. No conjunctival pallor. Normocephalic, atraumatic. No pharyngeal erythema. No thyromegaly. CARDIOVASCULAR: S1 and S2 present. No murmurs, rubs, or gallops. PULMONARY: Chest is clear to auscultation, no wheezing or crackles. ABDOMEN: Soft, tender, nondistended, normoactive bowel sounds. No palpable organomegaly. Post surgical abdomen with midline incision and ostomy MUSCULOSKELETAL: No joint swelling or deformity. EXTREMITIES: No cyanosis, clubbing, or pedal edema. NEUROLOGICAL: Gross neurological examination did not reveal any focal deficits. SKIN: No rashes. Assessment and Plan Assessment -Bowel perforation had ileus on admission. Post op day #12 laparotomy and small bowel resection, right colectomy ileostomy . on IV unasyn with procalcitonin elevated at 1.57, CRP elevated. -Hyponatremia due to poor oral intake -History of Crohn's disease status post redo colectomy a few weeks ago -Leukocytosis secondary to sepsis, bowel perforation wound cultures are showing gram-negative bacilli this is from the surgical wound from his previous surgery, cultures showing E.Coli, luekocytosis resolved -Anemia; s/p 2 units PRBC hgb currently 7.2, unclear etiology, no evidence for a cute bleeding. -History tobacco use, quit in 2020 -Obesity GI Prophylaxis Protonix DVT Prophylaxis Lovenox FULL CODE Plan Pt advanced to regular diet by primary Increase activity level Encourage IS use Continue with IV antibiotics IV fluids [facility] on discharge Thank you for this consultation we will continue to follow along this admission. Objective - Vital Signs Vital signs: Vital Signs Temp 98.6 F 07/03/21 07:07 Pulse 93 07/03/21 07:07 Resp 18 07/03/21 02:55 BP 115/74 07/03/21 07:07 Pulse Ox 95 07/03/21 07:07 Intake & Output 07/02/21 07/03/21 07/03/21 18:59 06:59 18:59 Intake Total 500 2100 720 Output Total 460 1680 860 Balance 40 420 -140 Intake: IV 500 600 Sodium Chloride 0.9% 1, 500 600 000 ml @ 50 mls/hr IV . Q20H [facility] Rx#:[id number] Intake, IV Titration 500 Amount Vancomycin 1,750 mg In 500 Sodium Chloride 0.9% 500 ml 500 ml @ 167 mls/hr IVPB Q8H [facility] Rx#: [id number] Oral 1000 720 Output: Drainage 40 30 10 Abdomen 40 30 10 Urine 420 1400 650 Stool 250 200 Other: Voiding Method Urinal Urinal # Voids 1 - Labs CBC & Chem 7: 07/03/21 05:31 07/03/21 05:31 Labs: Abnormal Lab Results - Last 24 Hours (Table) 07/03/21 07/03/21 07/03/21 Range/Units 05:31 05:31 07:08 RBC 2.57 L (4.40-5.60) X 10*6/uL Hgb 7.2 L (13.0-17.0) g/dL Hct 24.0 L (39.6-50.0) % MCHC 30.0 L (32.0-37.0) g/dL RDW 17.4 H (11.5-14.5) % Immature Gran # 0.17 H (0.00-0.04) X 10*3/uL Neutrophils # 7.83 H (1.80-7.70) X 10*3/uL Sodium 131 L (137-145) mmol/L BUN 6 L (9-20) mg/dL POC Glucose (mg/dL) 100 H (75-99) mg/dL Calcium 7.6 L (8.4-10.2) mg/dL 07/03/21 Range/Units 11:50 RBC (4.40-5.60) X 10*6/uL Hgb (13.0-17.0) g/dL Hct (39.6-50.0) % MCHC (32.0-37.0) g/dL RDW (11.5-14.5) % Immature Gran # (0.00-0.04) X 10*3/uL Neutrophils # (1.80-7.70) X 10*3/uL Sodium (137-145) mmol/L BUN (9-20) mg/dL POC Glucose (mg/dL) 105 H (75-99) mg/dL Calcium (8.4-10.2) mg/dL Microbiology - Last 24 Hours (Table) 07/01/21 22:27 Blood Culture - Preliminary Blood No Growth after 24 hours
[2021-07-03 16:44] LABS: Glucose,Whole Blood 91 mg/dL (75-99)
[2021-07-03] MEDS: AMPICILLIN-SULBACTAM 3 GM in SODIUM CHLORIDE 0.9% 100 ML IVPB SCH (17:32)
[2021-07-03] MEDS: MELATONIN 3 MG TABLET PO SCH (20:45)
[2021-07-03 21:12] LABS: Glucose,Whole Blood 90 mg/dL (75-99)
--- NOTE | 2021-07-03 22:59 | P.PN ---
Subjective Progress Note Date: 07/02/21 Principal diagnosis: Abdominal wound infection Patient is 41 year male with a past medical history significant for Crohn's disease in this patient who recently did have a laparotomy for abdominal abscess, no readmitted to the hospital with abdominal pain and concern for abdominal wound dehiscence and possible infection. Patient was taken to the OR 06/21/2021 patient is status post laparotomy right colectomy and ileostomy and drainage of abdominal abscess On today's evaluation that is 07/02/2021, the patient did not have any further fever and is afebrile today, the patient denies having any chest pain shortness of breath or cough. Denies any abdominal pain no nausea no vomiting and did have output in his colostomy bag Objective - Vital Signs Vital signs: Vital Signs Temp 98.3 F 07/02/21 20:00 Pulse 114 H 07/02/21 20:00 Resp 18 07/02/21 20:00 BP 127/83 07/02/21 20:00 Pulse Ox 97 07/02/21 20:00 Intake & Output 07/02/21 07/02/21 07/03/21 06:59 18:59 06:59 Intake Total 500 100 Output Total 1560 460 500 Balance -1560 40 -400 Intake: IV 500 Sodium Chloride 0.9% 1, 500 000 ml @ 50 mls/hr IV . Q20H [facility] Rx#:[id number] Oral 100 Output: Drainage 60 40 Abdomen 60 40 Urine 900 420 500 Stool 600 Other: Voiding Method Urinal Urinal # Voids 1 - Exam GENERAL DESCRIPTION:[ Patient is awake and alert in no distress] HEENT: [Oral mucosa is dry and no pharyngeal erythema] RESPIRATORY SYSTEM: [Unlabored breathing decreased. The base] CARDIA VASCULAR SYSTEM: [S1-S2 regular rate and rhythm no murmur] GI: [Abdominal soft no significant tenderness EXTREMITIES: [No edema feet] - Labs CBC & Chem 7: 07/03/21 05:31 07/03/21 05:31 Labs: Abnormal Lab Results - Last 24 Hours (Table) 07/02/21 07/02/21 07/02/21 Range/Units 07:28 07:28 07:28 RBC 2.47 L (4.40-5.60) X 10*6/uL Hgb 7.0 L (13.0-17.0) g/dL Hct 23.0 L (39.6-50.0) % MCHC 30.4 L (32.0-37.0) g/dL RDW 17.2 H (11.5-14.5) % Immature Gran # 0.16 H (0.00-0.04) X 10*3/uL Neutrophils # 7.83 H (1.80-7.70) X 10*3/uL Lymphocytes # 0.79 L (0.90-5.00) X 10*3/uL Sodium 131 L (135-145) mmol/L BUN 7.5 L (9.0-27.0) mg/dL BUN/Creatinine Ratio 11.48 L (12.00-20.00) Ratio POC Glucose (mg/dL) (75-99) mg/dL Calcium 7.6 L (8.7-10.3) mg/dL Total Bilirubin 1.40 H (0.30-1.20) mg/dL Alkaline Phosphatase 133 H (41-126) U/L C-Reactive Protein 23.80 H (0.00-0.80) mg/dL Total Protein 5.3 L (6.2-8.2) g/dL Albumin 2.2 L (3.8-4.9) g/dL Albumin/Globulin Ratio 0.70 L (1.60-3.17) g/dL Procalcitonin 1.57 H (0.02-0.09) ng/mL 07/02/21 Range/Units 12:05 RBC (4.40-5.60) X 10*6/uL Hgb (13.0-17.0) g/dL Hct (39.6-50.0) % MCHC (32.0-37.0) g/dL RDW (11.5-14.5) % Immature Gran # (0.00-0.04) X 10*3/uL Neutrophils # (1.80-7.70) X 10*3/uL Lymphocytes # (0.90-5.00) X 10*3/uL Sodium (135-145) mmol/L BUN (9.0-27.0) mg/dL BUN/Creatinine Ratio (12.00-20.00) Ratio POC Glucose (mg/dL) 110 H (75-99) mg/dL Calcium (8.7-10.3) mg/dL Total Bilirubin (0.30-1.20) mg/dL Alkaline Phosphatase (41-126) U/L C-Reactive Protein (0.00-0.80) mg/dL Total Protein (6.2-8.2) g/dL Albumin (3.8-4.9) g/dL Albumin/Globulin Ratio (1.60-3.17) g/dL Procalcitonin (0.02-0.09) ng/mL Assessment and Plan (1) Incisional infection Current Visit: Yes Status: Acute Code(s): T81.49XA - INFECTION FOLLOWING A PROCEDURE, OTHER SURGICAL SITE, INIT SNOMED Code(s): 82299614 Plan: 1-patient admitted to the hospital with abdominal pain with abdominal incision dehiscence and concern for possible deep infection, and this patient who is status post exploratory laparotomy status post right colectomy and small bowel resection ileostomy and drainage of the abscess, no OR cultures were done superficial abdominal cultures showed E. coli and anaerobes, patient was doing well however the patient did have a new fever, the blood culture has been pain which so far pending UA was negative patient antibiotic has been adjusted to vancomycin Rocephin and Flagyl to continue while waiting for repeat culture finalized Time with Patient: Less than 30
--- NOTE | 2021-07-03 23:00 | P.PN ---
Subjective Progress Note Date: 07/03/21 Principal diagnosis: Abdominal wound infection Patient is 41 year male with a past medical history significant for Crohn's disease in this patient who recently did have a laparotomy for abdominal abscess, no readmitted to the hospital with abdominal pain and concern for abdominal wound dehiscence and possible infection. Patient was taken to the OR 06/21/2021 patient is status post laparotomy right colectomy and ileostomy and drainage of abdominal abscess On today's evaluation that is 07/03/2021, the patient is afebrile. The last 2 days, the patient denies having any chest pain shortness of breath or cough. The patient denies any abdominal pain no nausea no vomiting and did have output in his colostomy bag Objective - Vital Signs Vital signs: Vital Signs Temp 98.4 F 07/03/21 19:00 Pulse 89 07/03/21 19:00 Resp 17 07/03/21 20:00 BP 122/76 07/03/21 19:00 Pulse Ox 96 07/03/21 19:00 Intake & Output 07/03/21 07/03/21 07/04/21 06:59 18:59 06:59 Intake Total 2100 720 Output Total 1680 860 625 Balance 420 -140 -625 Intake: IV 600 Sodium Chloride 0.9% 1, 600 000 ml @ 50 mls/hr IV . Q20H [facility] Rx#:[id number] Intake, IV Titration 500 Amount Vancomycin 1,750 mg In 500 Sodium Chloride 0.9% 500 ml 500 ml @ 167 mls/hr IVPB Q8H [facility] Rx#: [id number] Oral 1000 720 Output: Drainage 30 10 Abdomen 30 10 Urine 1400 650 450 Stool 250 200 175 Other: Voiding Method Urinal Urinal # Voids 1 - Labs CBC & Chem 7: 07/03/21 05:31 07/03/21 05:31 Labs: Abnormal Lab Results - Last 24 Hours (Table) 07/03/21 07/03/21 07/03/21 Range/Units 05:31 05:31 07:08 RBC 2.57 L (4.40-5.60) X 10*6/uL Hgb 7.2 L (13.0-17.0) g/dL Hct 24.0 L (39.6-50.0) % MCHC 30.0 L (32.0-37.0) g/dL RDW 17.4 H (11.5-14.5) % Immature Gran # 0.17 H (0.00-0.04) X 10*3/uL Neutrophils # 7.83 H (1.80-7.70) X 10*3/uL Sodium 131 L (137-145) mmol/L BUN 6 L (9-20) mg/dL POC Glucose (mg/dL) 100 H (75-99) mg/dL Calcium 7.6 L (8.4-10.2) mg/dL 07/03/21 Range/Units 11:50 RBC (4.40-5.60) X 10*6/uL Hgb (13.0-17.0) g/dL Hct (39.6-50.0) % MCHC (32.0-37.0) g/dL RDW (11.5-14.5) % Immature Gran # (0.00-0.04) X 10*3/uL Neutrophils # (1.80-7.70) X 10*3/uL Sodium (137-145) mmol/L BUN (9-20) mg/dL POC Glucose (mg/dL) 105 H (75-99) mg/dL Calcium (8.4-10.2) mg/dL Microbiology - Last 24 Hours (Table) 07/01/21 22:27 Blood Culture - Preliminary Blood No Growth after 24 hours Assessment and Plan (1) Incisional infection Current Visit: Yes Status: Acute Code(s): T81.49XA - INFECTION FOLLOWING A PROCEDURE, OTHER SURGICAL SITE, INIT SNOMED Code(s): 28643965 Plan: 1-patient admitted to the hospital with abdominal pain with abdominal incision dehiscence and concern for possible deep infection, and this patient who is status post exploratory laparotomy status post right colectomy and small bowel resection ileostomy and drainage of the abscess, no OR cultures were done superficial abdominal cultures showed E. coli and anaerobes, patient was doing well however the patient did have a new fever, the blood culture has been obtained which are negative so far the patient UA was negative patient is currently covered with vancomycin Rocephin and Flagyl to continue while waiting for repeat culture finalized Time with Patient: Less than 30
[2021-07-04] MEDS: AMPICILLIN-SULBACTAM 3 GM in SODIUM CHLORIDE 0.9% 100 ML IVPB SCH ×2 (00:24→07:42)
[2021-07-04] MEDS: HYDROmorphone 1 MG/ML 1 ML SYRINGE IVP PRN ×7 (00:30→21:56)
[2021-07-04 06:30] LABS: African American GFR (CKD) >90 (>60 ml/min/1.73 sqM); Anion Gap 5 mmol/L; Blood Urea Nitrogen 6 mg/dL (9-20); Calcium 7.6 mg/dL (8.4-10.2); Carbon Dioxide 26 mmol/L (22-30); Chloride 102 mmol/L (98-107); Glucose 97 mg/dL (74-99); Magnesium 1.6 mg/dL (1.6-2.3); Non-African American GFR(CKD) >90 (>60 ml/min/1.73 sqM); Potassium 3.8 mmol/L (3.5-5.1); Sodium 133 mmol/L (137-145)
[2021-07-04 07:42] LABS: Glucose,Whole Blood 101 mg/dL (75-99)
[2021-07-04] MEDS: ENOXAPARIN 40 MG/0.4 ML SYRINGE SQ SCH (07:42)
[2021-07-04] MEDS: PANTOPRAZOLE 40 MG TABLET PO SCH (07:42)
[2021-07-04] MEDS: metroNIDAZOLE 500 MG TAB PO SCH ×3 (07:42→20:41)
[2021-07-04] MEDS: SODIUM CHLORIDE 0.9% 1,000 ML IV SCH (07:43)
[2021-07-04] MEDS: INSULIN ASPART (NovoLOG) 100 UNIT/ML VIAL SQ SCH ×4 (07:43→20:31)
[2021-07-04] MEDS ORDERED: MAGNESIUM SULFATE-D5W PMX 1 GM in DEXTROSE/WATER 1 100ML.BAG IVPB ONE (08:14)
[2021-07-04] MEDS: VANCOMYCIN 1,750 MG in SODIUM CHLORIDE 0.9% 500 ML 500 ML IVPB SCH ×2 (11:05→20:41)
[2021-07-04 11:11] LABS: Glucose,Whole Blood 113 mg/dL (75-99)
[2021-07-04 12:19] LABS: Basophils # (A) 0.03 X 10*3/uL (0.00-0.10); Basophils % (A) 0.3 %; Eosinophils # (A) 0.08 X 10*3/uL (0.04-0.35); Eosinophils % (A) 0.9 %; HCT 24.6 % (39.6-50.0); HGB 7.4 g/dL (13.0-17.0); Immature Grans, Automated 2.1 %; Lymphocytes # (A) 0.73 X 10*3/uL (0.90-5.00); Lymphocytes % (A) 8.1 %; MCH 28.4 pg (27.0-32.0); MCHC 30.1 g/dL (32.0-37.0); MCV 94.3 fL (80.0-97.0); Mean Platelet Volume 9.6 fL (9.5-12.2); Monocytes # (A) 0.49 X 10*3/uL (0.20-1.00); Monocytes % (A) 5.4 %; NRBC Per 100 WBC 0 /100 WBCS (0.0-0.0); Neutrophils # (A) 7.54 X 10*3/uL (1.80-7.70); Neutrophils % (A) 83.2 %; Platelet Count 373 X 10*3/uL (140-440); RBC 2.61 X 10*6/uL (4.40-5.60); RDW 17.4 % (11.5-14.5); WBC 9.06 X 10*3/uL (4.50-10.00)
[2021-07-04] MEDS ORDERED: SODIUM FERRIC GLUCONAT-SUCROSE 125 MG in SODIUM CHLORIDE 0.9% 100 ML IVPB ONE (13:09)
--- NOTE | 2021-07-04 13:11 | P.PN ---
Subjective Progress Note Date: 07/04/21 CHIEF COMPLAINT: Drainage from abdominal incision HISTORY OF PRESENT ILLNESS: Patient is status post exploratory laparotomy, small bowel resection, right colectomy with ileostomy for abdominal fascial dehi scence, perforated small bowel and intra-abdominal abscess on 06/21/21. Patient reports his pain is controlled. He denies any nausea or vomiting. Ostomy is functioning. Afebrile labs pending. ADRIAN drain a 40 mL output through the night. Magnesium 1.6 and being replaced. WBC 9.06 hemoglobin 7.4 platelets 373 Patient only worked with physical therapy on the side of bed over the weekend. Patient seen and examined with Dr. steen PHYSICAL EXAM: VITAL SIGNS: Reviewed. GENERAL: Well-developed in no acute distress. HEENT: No sclera icterus. Extraocular movements grossly intact. Moist buccal mucosa. Head is atraumatic, normocephalic. ABDOMEN: Soft. Nondistended. Ileostomy brown stool. ADRIAN drain with serous purulent output NEUROLOGIC: Alert and oriented. Cranial nerves II through XII grossly intact. ASSESSMENT: 1. 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 Ileus resolved 3. Crohn's disease with abscess status post ileocolectomy and washout of peritoneal abscess on 05/28/2021 4. Generalized weakness 5. Anemia likely dilutional from IV fluids 6. Fever possibly due to patient's intra-abdominal abscess PLAN: -We'll give 1 dose of IV iron for anemia -Recommend to hold off on computed tomography scan of abdomen at this time -Continue regular diet -Continue local wound care -Continue to monitor hemoglobin -Continue to monitor ADRIAN drain output -Encouraged patient to increase activity -Continue supportive care -Continue antibiotics per ID -Continue pain medication as needed -Incentive spirometer ordered -Encouraged patient to increase activity level -DVT prophylaxis Lovenox and GI prophylaxis Protonix Physician Benefits Assistant note has been reviewed by physician. Signing provider agrees with the documented findings, assessment, and plan of care. Objective - Vital Signs Vital signs: Vital Signs Temp 98.7 F 07/04/21 02:00 Pulse 95 07/04/21 02:00 Resp 18 07/04/21 02:00 BP 106/70 07/04/21 02:00 Pulse Ox 94 L 07/04/21 02:00 Intake & Output 07/03/21 07/04/21 07/04/21 18:59 06:59 18:59 Intake Total 720 480 Output Total 860 2305 10 Balance -140 -1825 -10 Intake: Oral 720 480 Output: Drainage 10 30 10 Abdomen 10 30 10 Urine 650 1800 Stool 200 475 Other: Voiding Method Urinal Urinal - Labs CBC & Chem 7: 07/04/21 05:06 07/04/21 05:06 Labs: Abnormal Lab Results - Last 24 Hours (Table) 07/03/21 07/04/21 07/04/21 Range/Units 11:50 05:06 07:41 Sodium 133 L (137-145) mmol/L BUN 6 L (9-20) mg/dL POC Glucose (mg/dL) 105 H 101 H (75-99) mg/dL Calcium 7.6 L (8.4-10.2) mg/dL Microbiology - Last 24 Hours (Table) 07/01/21 22:27 Blood Culture - Preliminary Blood No Growth after 48 hours
--- NOTE | 2021-07-04 15:42 | P.PN ---
Subjective Progress Note Date: 07/04/21 41-year-old male with history of Crohn's disease and abscess had a ileocolectomy on 05/28/2021 subsequently discharged to [facility] patient rehabitation patient won't cultures during previous hospital physicians showed E. coli and Keke patient to complete the treatment with Augmentin and Diflucan. I did evaluate this patient at [facility] rehabilitation at that time I obtain the cultures as there was concern about new infection in the surgical site area will obtain those cultures, infectious disease evaluated the patient there. Patient was subsequently discharged. came in with the increase the pain and infection of the surgical site area now. Patient had a CT of the abdomen which is concerning for ileus although patient was having normal bowel movements. Patient is hyponatremic. Patient will sugars are highly elevated lower obtain hemoglobin and patient was started on insulin regimen along with sliding scale. 06/21/2021 Patient was evaluated by general surgery and the infectious disease. There is mild area of redness, infectious disease doesn't believe patient has significant superficial infection there is no evidence of abscesses on the CT either although patient may need only back as per infectious disease cultures are pending patient is being can urine Zosyn. 06/22/2021 Patient is found to have pneumoperitoneum later in the day and patient underwent emergent laparotomy. With a small bowel resection and right colectomy and ileostomy. Patient is presently intubated on mechanical ventilator with the assist-control ventilation with respiratory rate of 14 and tidal volume of 6 and FiO2 of 40% PEEP of 8 patient is on propofol for sedation white blood cell count went up to 22,000 from normal white count, colostomy is empty at this time. 06/23/2021 Patient is extubated today patient is presently on 5 L of oxygen is alert awake alert oriented 3 patient White blood cell count has come down. And presently 10,900. Patient has a Wheeler catheter urine output around 50-60 mL per hour. Patient is off pressor support. 06/24/2021 This is a pleasant 41 years old male who was recently discharged from the hospital for intra-abdominal infection presents with incisional infection and abdominal wound dehiscence and he underwent exploratory laparotomy status post right colectomy and small bowel resection with ileostomy and drainage of an abscess. He is covered with Zosyn. Once culture was growing E. coli and an air MICROORGANISMS. Also he is on normal saline. He is awake and alert, not in distress. He is on a clear liquid diet. No nausea vomiting. As mild abdominal pain, no abdominal distention and it makes little bowel movement. Hemoglobin drops 7 down to 6.1 today and he got one unit of blood transfusion and we will check hemoglobin the morning. 06/25/2021 Patient generally doing well, he was transferred to the general medical floor. He tolerates clear liquid diet and it was advanced today. Liquid diet. No vomiting, little expected abdominal pain. He has some loose bowel movement does not look C. diff but to go to check anyway. His hemoglobin was 6.1 yesterday and after 1 unit of blood transfusion went up to 6.6 but because of shortness and supply the couple for transfusion nowadays is 6.5 in this facility. We repeated hemoglobin and is stable at 6.8 and slightly improving referral keep monitoring for now. Patient with no overt signs of bleeding currently. Also surgery team on the case. No more fever. Chest x-ray showing no definite lung capacity per radiologist. Remains on Zosyn and normal saline at 100 mL per hour. Also TPN 06/26/2021 Patient with infected incisional wound and possible deep intra-abdominal infection and his been treated with Zosyn and improving gradually. He has no abdominal pain, he is tolerating his full liquid diet well. No vomiting. He has some loose bowel movement. He remains on TPN. Wheeler catheter is discontinue it and we are checking bladder scan We'll check C. diff although suspicion is low Patient himself feels better and he looks pleased with the dissection of his ill ness going to. All his questions answered 06/27/2021 Patient awake and alert and hemodynamically stable however his hemoglobin was low at 6.4 and received one unit of blood transfusion. Other than that her medicine TPN which is started to be tapered down by surgery team and the meantime he remains on liquid diet per surgery team. Colostomy back was showing some brown stool although still loose but not liquid as before. Looks like patient improving gradually. He remains on Zosyn. 06/28/2021 Patient kept on liquid diet tolerating diet well. Distal ileostomy back working slowly area at the patient with minimal abdominal pain. However he developed significant anemia yesterday needing one unit of blood transfusion and currently his hemoglobin 7.7. TPN been tapered down until discontinued while encourage oral intake gradually. And he remains on antibiotics of Zosyn to cover intra-abdominal infection Wheeler catheter was discontinued 2 days ago, his pain well. However we'll check postvoid residual 06/29/2021 Patient evaluated today sitting up in chair. Denies acute events overnight, denies abdominal pain. Passing gas from ostomy, staff is emptying ostomy currently. Patient states next session will come in for training and he is hoping to be comfortable resuming care of the ostomy. Labs today show WBC 9.42, hemoglobin 7.7, platelets 257, calcium 7.9, total bili 1.50, total protein 5.1, albumin 2.3. Afebrile, heart rate 97, blood pressure 120/77, 99% on 2L NC which he states he is using as needed more so ate night. He is getting up to 1500 on his IS encouraged to keep using and to ambulate as tolerated. Full liquid diet with ensure, on average eating about 50% of meals. Continues on IV zosyn. Plan for [facility] on discharge once medically stable. 06/30/2021 Patient values today sitting up in a chair, no acute events overnight he did work with physical therapy and is having increased abdominal pain requesting pain medication. Using his incentive spirometer, abdominal packing in place, ostomy with stool he states he is passing more gas than stool today. Labs today show stable hemoglobin 7.9, blood sugar in the 100s. He is off the TPN and now on full liquid diet with ensure working on increasing his oral intake. Vital stable, afebrile, heart rate 99, blood pressure 106/68 and he is 98% on 2 L nasal cannula. 07/01/2021 Patient evaluated today resting in bed. He did have a fever, 100.3 throughout the night that he said finally broke around midnight. Fever free since. Blood pressure on the lower side at 100/67, heart rate 90, 99% on room air. He is on IV Zosyn. Labs today show stable white count 8.42, hemoglobin 7.1, platelet count 243. Blood sugars in the 100s. Ostomy care completed with teaching and patient was able to semi-participate. Otherwise no acute events overnight. Encourage incentive spirometry use and continued ambulation. 07/02/2021 Patient continues with low grade fevers throughout the night, none today, using IS more frequently. Next ostomy change planned for sunday with patient hoping to be more hands on. Tolerating diet, discussed other options from kitchen and bringing food as well he is hoping to be able to increase his meal intake. WBC today 9.41, hemoglobin 7.0, platelets 306, sodium 131, potassium 3.8, BUN 7.5, creatinine 0.7, glucose in the 90's, calcium 7.6, total trevin 1.4, alk phos 133, CRP 23.80, Procalcitonin today 1.57. Heart rate in the high 90's to low 100's, blood pressure on the softer side 90's/60's, on room air. Antiobiotics adjusted by ID, patient now on IV rocephin, IV vancomycin. 07/03/2021 Patient evaluated today resting in bed. No more fevers. Encourage oral intake ambulation and IS. Antibiotics in the form of IV Unasyn, PO Flagyl, cultures showing anaerobes as well as E. coli without drug resistance. Blood cultures are negative so far. Labs today white count 9.64, hemoglobin 7.2, sodium 131, potassium 3.7, BUN 6, creatinine 0.75, blood sugars in the 100s. Heart rate 93, blood pressure 115/74, 95% room air. 07/04/2021 Patient evaluated today resting in bed he is encouraged to sit in the chair during the day. Encouraged to continue using his incentive spirometer. Antibiotics in the form of IV vancomycin and by mouth Flagyl, continues on IV fluids. Labs today show white count 9.06, hemoglobin 7.4, sodium 133, potassium 3.8, BUN 6, creatinine 0.74, blood glucose in the 100s, magnesium 1.6. Patient is in negative fluid balance in the last 24 hours. Blood pressure on the lower side at 106/70 throughout the evening, 118/71 today, heart rate 88, fevers have resolved for now, 94% on room air. He denies any chest pain, cough, or shortness of breath. Urinating without difficulty, gas and stool through ostomy. Continues with ADRIAN drain. Working with PT/OT plan is for rehab on discharge. Continues with ostomy teaching. ROS Constitutional: Reports generalized weakness, denies fever Cardio vascular: denied any chest pain, palpitations Gastrointestinal denied any nausea vomiting, reports stools through ostomy, abdominal pain Pulmonary: Denied any shortness of breath cough Neurologic denied any new focal deficits All inpatient medications were reviewed and appropriate changes in these medications as dictated in the interval history and assessment and plan. PHYSICAL EXAMINATION: GENERAL: The patient is alert and oriented x3, not in any acute distress. Well developed, well nourished. HEENT: Pupils are round and equally reacting to light. EOMI. No scleral icterus. No conjunctival pallor. Normocephalic, atraumatic. No pharyngeal erythema. No thyromegaly. CARDIOVASCULAR: S1 and S2 present. No murmurs, rubs, or gallops. PULMONARY: Chest is clear to auscultation, no wheezing or crackles. ABDOMEN: Soft, tender, nondistended, normoactive bowel sounds. No palpable organomegaly. Post surgical abdomen with midline incision and ostomy MUSCULOSKELETAL: No joint swelling or deformity. EXTREMITIES: No cyanosis, clubbing, or pedal edema. NEUROLOGICAL: Gross neurological examination did not reveal any focal deficits. SKIN: No rashes. Assessment and Plan Assessment -Bowel perforation had ileus on admission. Post op day #13 laparotomy and small bowel resection, right colectomy ileostomy. Procalcitonin elevated at 1.57, CRP elevated. Antibiotics per ID. -Hyponatremia due to poor oral intake, improving -History of Crohn's disease status post redo colectomy a few weeks ago -Leukocytosis secondary to sepsis, bowel perforation wound cultures are showing E.Coli and anaerobic gram negative bacilli this is from the surgical wound from his previous surgery, leukocytosis resolved. -Anemia; s/p 2 units PRBC hgb currently 7.4, unclear etiology, no evidence for acute bleeding. Stable. -History tobacco use, quit in 2020 -Obesity GI Prophylaxis Protonix DVT Prophylaxis Lovenox FULL CODE Plan Pt advanced to regular diet by primary Increase activity level Encourage IS use Continue with IV and PO antibiotics IV fluids Repeat labs in AM [facility] on discharge Thank you for this consultation we will continue to follow along this admission. Objective - Vital Signs Vital signs: Vital Signs Temp 98.7 F 07/04/21 02:00 Pulse 95 07/04/21 02:00 Resp 18 07/04/21 02:00 BP 106/70 07/04/21 02:00 Pulse Ox 94 L 07/04/21 02:00 Intake & Output 07/03/21 07/04/21 07/04/21 18:59 06:59 18:59 Intake Total 720 480 Output Total 860 2305 10 Balance -140 -1825 -10 Intake: Oral 720 480 Output: Drainage 10 30 10 Abdomen 10 30 10 Urine 650 1800 Stool 200 475 Other: Voiding Method Urinal Urinal - Labs CBC & Chem 7: 07/04/21 05:06 07/04/21 05:06 Labs: Abnormal Lab Results - Last 24 Hours (Table) 07/04/21 07/04/21 07/04/21 Range/Units 05:06 05:06 07:41 RBC 2.61 L (4.40-5.60) X 10*6/uL Hgb 7.4 L (13.0-17.0) g/dL Hct 24.6 L (39.6-50.0) % MCHC 30.1 L (32.0-37.0) g/dL RDW 17.4 H (11.5-14.5) % Immature Gran # 0.19 H (0.00-0.04) X 10*3/uL Lymphocytes # 0.73 L (0.90-5.00) X 10*3/uL Sodium 133 L (137-145) mmol/L BUN 6 L (9-20) mg/dL POC Glucose (mg/dL) 101 H (75-99) mg/dL Calcium 7.6 L (8.4-10.2) mg/dL 07/04/21 Range/Units 11:10 RBC (4.40-5.60) X 10*6/uL Hgb (13.0-17.0) g/dL Hct (39.6-50.0) % MCHC (32.0-37.0) g/dL RDW (11.5-14.5) % Immature Gran # (0.00-0.04) X 10*3/uL Lymphocytes # (0.90-5.00) X 10*3/uL Sodium (137-145) mmol/L BUN (9-20) mg/dL POC Glucose (mg/dL) 113 H (75-99) mg/dL Calcium (8.4-10.2) mg/dL Microbiology - Last 24 Hours (Table) 07/01/21 22:27 Blood Culture - Preliminary Blood No Growth after 48 hours
[2021-07-04 16:58] LABS: Glucose,Whole Blood 119 mg/dL (75-99)
[2021-07-04 20:17] LABS: Glucose,Whole Blood 104 mg/dL (75-99)
[2021-07-04] MEDS: MELATONIN 3 MG TABLET PO SCH (20:32)
--- NOTE | 2021-07-04 23:28 | P.PN ---
Subjective Progress Note Date: 07/04/21 Principal diagnosis: Abdominal wound infection Patient is 41 year male with a past medical history significant for Crohn's disease in this patient who recently did have a laparotomy for abdominal abscess, no readmitted to the hospital with abdominal pain and concern for abdominal wound dehiscence and possible infection. Patient was taken to the OR 06/21/2021 patient is status post laparotomy right colectomy and ileostomy and drainage of abdominal abscess On today's evaluation that is 07/04/2021, the patient remains to be afebrile, the patient denies having any chest pain shortness of breath or cough. The patient abdominal pain is currently controlled with pain medication, the patient denies nausea no vomiting and did have output in his colostomy bag Objective - Vital Signs Vital signs: Vital Signs Temp 98.5 F 07/04/21 08:00 Pulse 88 07/04/21 08:00 Resp 19 07/04/21 08:00 BP 118/71 07/04/21 08:00 Pulse Ox 94 L 07/04/21 08:00 Intake & Output 07/03/21 07/04/21 07/04/21 18:59 06:59 18:59 Intake Total 720 480 Output Total 860 2305 10 Balance -140 -1825 -10 Intake: Oral 720 480 Output: Drainage 10 30 10 Abdomen 10 30 10 Urine 650 1800 Stool 200 475 Other: Voiding Method Urinal Urinal - Exam GENERAL DESCRIPTION:[ Patient is awake and alert in no distress] HEENT: [Oral mucosa is dry and no pharyngeal erythema] RESPIRATORY SYSTEM: [Unlabored breathing decreased. The base] CARDIA VASCULAR SYSTEM: [S1-S2 regular rate and rhythm no murmur] GI: [Abdominal soft midline abdominal wound no significant slough tissue surrounding redness or foul-smelling drainage ADRIAN drain did have some purulent drainage EXTREMITIES: [No edema feet] - Labs CBC & Chem 7: 07/04/21 05:06 07/04/21 05:06 Labs: Abnormal Lab Results - Last 24 Hours (Table) 07/04/21 07/04/21 07/04/21 Range/Units 05:06 05:06 07:41 RBC 2.61 L (4.40-5.60) X 10*6/uL Hgb 7.4 L (13.0-17.0) g/dL Hct 24.6 L (39.6-50.0) % MCHC 30.1 L (32.0-37.0) g/dL RDW 17.4 H (11.5-14.5) % Immature Gran # 0.19 H (0.00-0.04) X 10*3/uL Lymphocytes # 0.73 L (0.90-5.00) X 10*3/uL Sodium 133 L (137-145) mmol/L BUN 6 L (9-20) mg/dL POC Glucose (mg/dL) 101 H (75-99) mg/dL Calcium 7.6 L (8.4-10.2) mg/dL 07/04/21 Range/Units 11:10 RBC (4.40-5.60) X 10*6/uL Hgb (13.0-17.0) g/dL Hct (39.6-50.0) % MCHC (32.0-37.0) g/dL RDW (11.5-14.5) % Immature Gran # (0.00-0.04) X 10*3/uL Lymphocytes # (0.90-5.00) X 10*3/uL Sodium (137-145) mmol/L BUN (9-20) mg/dL POC Glucose (mg/dL) 113 H (75-99) mg/dL Calcium (8.4-10.2) mg/dL Microbiology - Last 24 Hours (Table) 07/01/21 22:27 Blood Culture - Preliminary Blood No Growth after 48 hours Assessment and Plan (1) Incisional infection Current Visit: Yes Status: Acute Code(s): T81.49XA - INFECTION FOLLOWING A PROCEDURE, OTHER SURGICAL SITE, INIT SNOMED Code(s): 51943520 Plan: 1-patient admitted to the hospital with abdominal pain with abdominal incision dehiscence and concern for possible deep infection, and this patient who is status post exploratory laparotomy status post right colectomy and small bowel resection ileostomy and drainage of the abscess, no OR cultures were done superficial abdominal cultures showed E. coli and anaerobes, patient was doing well however the patient did have a new fever, the blood culture has been obtained which are negative so far the patient will benefit from a CT of abdominal pelvis if there is overall resolution of abdominal abscess will be candidate for oral antibiotics however if any residual abscess may benefit from IV antibiotic therapy. As the internal medicine team is adjusting patient antibiotics unnecessarily, there is no need two services managing antibiotics hence infectious disease will sign off this was communicated to the nurse practitioner for medical team on the floor Time with Patient: Less than 30
[2021-07-05] MEDS: HYDROmorphone 1 MG/ML 1 ML SYRINGE IVP PRN ×2 (03:09→05:57)
[2021-07-05] MEDS: SODIUM CHLORIDE 0.9% 1,000 ML IV SCH (03:09)
[2021-07-05 07:10] LABS: Glucose,Whole Blood 103 mg/dL (75-99)
[2021-07-05] MEDS: ONDANSETRON 4 MG/2 ML VIAL IVP PRN (07:20)
[2021-07-05] MEDS: ENOXAPARIN 40 MG/0.4 ML SYRINGE SQ SCH (09:06)
[2021-07-05] MEDS: traMADol 50 MG TAB PO PRN (09:06)
[2021-07-05] MEDS: PANTOPRAZOLE 40 MG TABLET PO SCH (09:06)
[2021-07-05] MEDS: metroNIDAZOLE 500 MG TAB PO SCH ×3 (09:06→20:52)
[2021-07-05] MEDS: VANCOMYCIN 1,750 MG in SODIUM CHLORIDE 0.9% 500 ML 500 ML IVPB SCH ×2 (09:11→20:53)
[2021-07-05] MEDS: INSULIN ASPART (NovoLOG) 100 UNIT/ML VIAL SQ SCH ×4 (09:18→22:11)
[2021-07-05 09:59] LABS: Basophils # (A) 0.03 X 10*3/uL (0.00-0.10); Basophils % (A) 0.4 %; Eosinophils % (A) 1.3 %; HCT 25.9 % (39.6-50.0); HGB 7.7 g/dL (13.0-17.0); Immature Grans, Automated 2.8 %; Lymphocytes # (A) 0.84 X 10*3/uL (0.90-5.00); Lymphocytes % (A) 10.6 %; MCH 28.4 pg (27.0-32.0); MCHC 29.7 g/dL (32.0-37.0); MCV 95.6 fL (80.0-97.0); Mean Platelet Volume 9.5 fL (9.5-12.2); Monocytes # (A) 0.43 X 10*3/uL (0.20-1.00); Monocytes % (A) 5.4 %; NRBC Per 100 WBC 0 /100 WBCS (0.0-0.0); Neutrophils # (A) 6.32 X 10*3/uL (1.80-7.70); Neutrophils % (A) 79.5 %; Platelet Count 393 X 10*3/uL (140-440); RBC 2.71 X 10*6/uL (4.40-5.60); RDW 17.5 % (11.5-14.5); WBC 7.94 X 10*3/uL (4.50-10.00)
[2021-07-05] MEDS ORDERED: HYDROmorphone 1 MG/ML 1 ML SYRINGE IVP PRN (10:13)
[2021-07-05 10:14] LABS: African American GFR (CKD) 135.9 (60.0-200.0); Anion Gap 13.4 mmol/L (10.00-18.00); BUN/Creat Ratio 6.57 Ratio (12.00-20.00); Blood Urea Nitrogen 4.6 mg/dL (9.0-27.0); Calcium 7.9 mg/dL (8.7-10.3); Carbon Dioxide 22.6 mmol/L (20.0-27.5); Non-African American GFR(CKD) 117.2 (60.0-200.0); Potassium 3.8 mmol/L (3.5-5.5)
[2021-07-05 10:15] LABS: Magnesium 1.9 mg/dL (1.5-2.4)
--- NOTE | 2021-07-05 11:09 | P.PN ---
Subjective Progress Note Date: 07/05/21 CHIEF COMPLAINT: Drainage from abdominal incision HISTORY OF PRESENT ILLNESS: Patient is status post exploratory laparotomy, small bowel resection, right colectomy with ileostomy for abdominal fascial dehi scence, perforated small bowel and intra-abdominal abscess on 06/21/21. Patient reports his pain is controlled. But he has been using the IV Dilaudid almost every 3 hours. He denies any nausea or vomiting. Ostomy is functioning. Afebrile. WBC 7.9 for hemoglobin 7.7 platelets 393 sodium 138 potassium 3.8 creatinine 0.7 magnesium 1.9 Patient seen and examined with Dr. steen PHYSICAL EXAM: VITAL SIGNS: Reviewed. GENERAL: Well-developed in no acute distress. HEENT: No sclera icterus. Extraocular movements grossly intact. Moist buccal mucosa. Head is atraumatic, normocephalic. ABDOMEN: Soft. Nondistended. Ileostomy brown stool. ADRIAN drain with serous purulent output NEUROLOGIC: Alert and oriented. Cranial nerves II through XII grossly intact. ASSESSMENT: 1. 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 Ileus resolved 3. Crohn's disease with abscess status post ileocolectomy and washout of peritoneal abscess on 05/28/2021 4. Generalized weakness 5. Anemia likely dilutional from IV fluids PLAN: -Change patient's Ultram scheduled. Use Motrin as needed. Change IV Dilaudid every 4 hours as needed for pain. Educated patient to start spreading out how often he uses the IV Dilaudid. -Continue regular diet -Continue local wound care -Continue to monitor hemoglobin -Continue to monitor ADRIAN drain output -Encouraged patient to increase activity -Continue supportive care -Continue antibiotics -Incentive spirometer ordered -Encouraged patient to ambulate -DVT prophylaxis Lovenox and GI prophylaxis Protonix Physician Over Short And Damage Clerk note has been reviewed by physician. Signing provider agrees with the documented findings, assessment, and plan of care. Objective - Vital Signs Vital signs: Vital Signs Temp 97.8 F 07/05/21 08:00 Pulse 94 07/05/21 08:00 Resp 16 07/05/21 08:00 BP 108/77 07/05/21 08:00 Pulse Ox 96 07/05/21 08:00 Intake & Output 02/12/1607/05/21 07/05/21 18:59 06:59 18:59 Intake Total 1940 950 Output Total 10 2645 200 Balance 1930 -1695 -200 Weight 118.8 kg 110.7 kg Intake: IV 600 950 Sodium Chloride 0.9% 1, 600 450 000 ml @ 50 mls/hr IV . Q20H FOR[facility]LY [facility], 1928–1983 Rx#:[id number] Vancomycin 1,750 mg In 500 Sodium Chloride 0.9% 500 ml 500 ml @ 167 mls/hr IVPB Q12HR [facility], 1928–1983 Rx#: [id number] Intake, IV Titration 800 Amount Ampicillin-Sulbactam 3 gm 100 In Sodium Chloride 0.9% 100 ml @ 200 mls/hr IVPB Q8HR FOR[facility], 1928–1983 Rx#:[id number] Magnesium Sulfate-D5w Pmx 100 1 gm In Dextrose/Water 1 100ml.bag @ 100 mls/hr IVPB ONCE ONE Rx#: [id number] Sodium Ferric Gluconat- 100 Sucrose 125 mg In Sodium Chloride 0.9% 100 ml @ 100 mls/hr IVPB ONCE ONE Rx#:[id number] Vancomycin 1,750 mg In 500 Sodium Chloride 0.9% 500 ml 500 ml @ 167 mls/hr IVPB Q12HR [facility], 1928[facility]1983 Rx#: [id number] Oral 540 Output: Drainage 10 20 Abdomen 10 20 Urine 2425 Stool 200 200 Other: Voiding Method Urinal Urinal # Voids 3 - Labs CBC & Chem 7: 07/05/21 05:46 07/05/21 05:46 Labs: Abnormal Lab Results - Last 24 Hours (Table) 07/04/21 07/04/21 07/04/21 Range/Units 05:06 11:10 16:57 RBC 2.61 L (4.40-5.60) X 10*6/uL Hgb 7.4 L (13.0-17.0) g/dL Hct 24.6 L (39.6-50.0) % MCHC 30.1 L (32.0-37.0) g/dL RDW 17.4 H (11.5-14.5) % Immature Gran # 0.19 H (0.00-0.04) X 10*3/uL Lymphocytes # 0.73 L (0.90-5.00) X 10*3/uL BUN (9.0-27.0) mg/dL BUN/Creatinine Ratio (12.00-20.00) Ratio POC Glucose (mg/dL) 113 H 119 H (75-99) mg/dL Calcium (8.7-10.3) mg/dL 07/04/21 07/05/21 07/05/21 Range/Units 20:16 05:46 05:46 RBC 2.71 L (4.40-5.60) X 10*6/uL Hgb 7.7 L (13.0-17.0) g/dL Hct 25.9 L (39.6-50.0) % MCHC 29.7 L (32.0-37.0) g/dL RDW 17.5 H (11.5-14.5) % Immature Gran # 0.22 H (0.00-0.04) X 10*3/uL Lymphocytes # 0.84 L (0.90-5.00) X 10*3/uL BUN 4.6 L (9.0-27.0) mg/dL BUN/Creatinine Ratio 6.57 L (12.00-20.00) Ratio POC Glucose (mg/dL) 104 H (75-99) mg/dL Calcium 7.9 L (8.7-10.3) mg/dL 07/05/21 Range/Units 07:09 RBC (4.40-5.60) X 10*6/uL Hgb (13.0-17.0) g/dL Hct (39.6-50.0) % MCHC (32.0-37.0) g/dL RDW (11.5-14.5) % Immature Gran # (0.00-0.04) X 10*3/uL Lymphocytes # (0.90-5.00) X 10*3/uL BUN (9.0-27.0) mg/dL BUN/Creatinine Ratio (12.00-20.00) Ratio POC Glucose (mg/dL) 103 H (75-99) mg/dL Calcium (8.7-10.3) mg/dL Microbiology - Last 24 Hours (Table) 07/01/21 22:27 Blood Culture - Preliminary Blood No Growth after 72 hours
[2021-07-05 11:53] LABS: Glucose,Whole Blood 120 mg/dL (75-99)
[2021-07-05] MEDS: traMADol 50 MG TAB PO SCH ×3 (12:29→23:13)
[2021-07-05] MEDS ORDERED: POTASSIUM CHLORIDE ER 20 MEQ TAB.ER PO STA (14:05)
--- NOTE | 2021-07-05 14:06 | P.PN ---
Subjective Progress Note Date: 07/05/21 41-year-old male with history of Crohn's disease and abscess had a ileocolectomy on 05/28/2021 subsequently discharged to [facility] patient rehabitation patient won't cultures during previous hospital physicians showed E. coli and Keke patient to complete the treatment with Augmentin and Diflucan. I did evaluate this patient at [facility] rehabilitation at that time I obtain the cultures as there was concern about new infection in the surgical site area will obtain those cultures, infectious disease evaluated the patient there. Patient was subsequently discharged. came in with the increase the pain and infection of the surgical site area now. Patient had a CT of the abdomen which is concerning for ileus although patient was having normal bowel movements. Patient is hyponatremic. Patient will sugars are highly elevated lower obtain hemoglobin and patient was started on insulin regimen along with sliding scale. 06/21/2021 Patient was evaluated by general surgery and the infectious disease. There is mild area of redness, infectious disease doesn't believe patient has significant superficial infection there is no evidence of abscesses on the CT either although patient may need only back as per infectious disease cultures are pending patient is being can urine Zosyn. 06/22/2021 Patient is found to have pneumoperitoneum later in the day and patient underwent emergent laparotomy. With a small bowel resection and right colectomy and ileostomy. Patient is presently intubated on mechanical ventilator with the assist-control ventilation with respiratory rate of 14 and tidal volume of 6 and FiO2 of 40% PEEP of 8 patient is on propofol for sedation white blood cell count went up to 22,000 from normal white count, colostomy is empty at this time. 06/23/2021 Patient is extubated today patient is presently on 5 L of oxygen is alert awake alert oriented 3 patient White blood cell count has come down. And presently 10,900. Patient has a Wheeler catheter urine output around 50-60 mL per hour. Patient is off pressor support. 06/24/2021 This is a pleasant 41 years old male who was recently discharged from the hospital for intra-abdominal infection presents with incisional infection and abdominal wound dehiscence and he underwent exploratory laparotomy status post right colectomy and small bowel resection with ileostomy and drainage of an abscess. He is covered with Zosyn. Once culture was growing E. coli and an air MICROORGANISMS. Also he is on normal saline. He is awake and alert, not in distress. He is on a clear liquid diet. No nausea vomiting. As mild abdominal pain, no abdominal distention and it makes little bowel movement. Hemoglobin drops 7 down to 6.1 today and he got one unit of blood transfusion and we will check hemoglobin the morning. 06/25/2021 Patient generally doing well, he was transferred to the general medical floor. He tolerates clear liquid diet and it was advanced today. Liquid diet. No vomiting, little expected abdominal pain. He has some loose bowel movement does not look C. diff but to go to check anyway. His hemoglobin was 6.1 yesterday and after 1 unit of blood transfusion went up to 6.6 but because of shortness and supply the couple for transfusion nowadays is 6.5 in this facility. We repeated hemoglobin and is stable at 6.8 and slightly improving referral keep monitoring for now. Patient with no overt signs of bleeding currently. Also surgery team on the case. No more fever. Chest x-ray showing no definite lung capacity per radiologist. Remains on Zosyn and normal saline at 100 mL per hour. Also TPN 06/26/2021 Patient with infected incisional wound and possible deep intra-abdominal infection and his been treated with Zosyn and improving gradually. He has no abdominal pain, he is tolerating his full liquid diet well. No vomiting. He has some loose bowel movement. He remains on TPN. Wheeler catheter is discontinue it and we are checking bladder scan We'll check C. diff although suspicion is low Patient himself feels better and he looks pleased with the dissection of his ill ness going to. All his questions answered 06/27/2021 Patient awake and alert and hemodynamically stable however his hemoglobin was low at 6.4 and received one unit of blood transfusion. Other than that her medicine TPN which is started to be tapered down by surgery team and the meantime he remains on liquid diet per surgery team. Colostomy back was showing some brown stool although still loose but not liquid as before. Looks like patient improving gradually. He remains on Zosyn. 06/28/2021 Patient kept on liquid diet tolerating diet well. Distal ileostomy back working slowly area at the patient with minimal abdominal pain. However he developed significant anemia yesterday needing one unit of blood transfusion and currently his hemoglobin 7.7. TPN been tapered down until discontinued while encourage oral intake gradually. And he remains on antibiotics of Zosyn to cover intra-abdominal infection Wheeler catheter was discontinued 2 days ago, his pain well. However we'll check postvoid residual 06/29/2021 Patient evaluated today sitting up in chair. Denies acute events overnight, denies abdominal pain. Passing gas from ostomy, staff is emptying ostomy currently. Patient states next session will come in for training and he is hoping to be comfortable resuming care of the ostomy. Labs today show WBC 9.42, hemoglobin 7.7, platelets 257, calcium 7.9, total bili 1.50, total protein 5.1, albumin 2.3. Afebrile, heart rate 97, blood pressure 120/77, 99% on 2L NC which he states he is using as needed more so ate night. He is getting up to 1500 on his IS encouraged to keep using and to ambulate as tolerated. Full liquid diet with ensure, on average eating about 50% of meals. Continues on IV zosyn. Plan for [facility] on discharge once medically stable. 06/30/2021 Patient values today sitting up in a chair, no acute events overnight he did work with physical therapy and is having increased abdominal pain requesting pain medication. Using his incentive spirometer, abdominal packing in place, ostomy with stool he states he is passing more gas than stool today. Labs today show stable hemoglobin 7.9, blood sugar in the 100s. He is off the TPN and now on full liquid diet with ensure working on increasing his oral intake. Vital stable, afebrile, heart rate 99, blood pressure 106/68 and he is 98% on 2 L nasal cannula. 07/01/2021 Patient evaluated today resting in bed. He did have a fever, 100.3 throughout the night that he said finally broke around midnight. Fever free since. Blood pressure on the lower side at 100/67, heart rate 90, 99% on room air. He is on IV Zosyn. Labs today show stable white count 8.42, hemoglobin 7.1, platelet count 243. Blood sugars in the 100s. Ostomy care completed with teaching and patient was able to semi-participate. Otherwise no acute events overnight. Encourage incentive spirometry use and continued ambulation. 07/02/2021 Patient continues with low grade fevers throughout the night, none today, using IS more frequently. Next ostomy change planned for sunday with patient hoping to be more hands on. Tolerating diet, discussed other options from kitchen and bringing food as well he is hoping to be able to increase his meal intake. WBC today 9.41, hemoglobin 7.0, platelets 306, sodium 131, potassium 3.8, BUN 7.5, creatinine 0.7, glucose in the 90's, calcium 7.6, total trevin 1.4, alk phos 133, CRP 23.80, Procalcitonin today 1.57. Heart rate in the high 90's to low 100's, blood pressure on the softer side 90's/60's, on room air. Antiobiotics adjusted by ID, patient now on IV rocephin, IV vancomycin. 07/03/2021 Patient evaluated today resting in bed. No more fevers. Encourage oral intake ambulation and IS. Antibiotics in the form of IV Unasyn, PO Flagyl, cultures showing anaerobes as well as E. coli without drug resistance. Blood cultures are negative so far. Labs today white count 9.64, hemoglobin 7.2, sodium 131, potassium 3.7, BUN 6, creatinine 0.75, blood sugars in the 100s. Heart rate 93, blood pressure 115/74, 95% room air. 07/04/2021 Patient evaluated today resting in bed he is encouraged to sit in the chair during the day. Encouraged to continue using his incentive spirometer. Antibiotics in the form of IV vancomycin and by mouth Flagyl, continues on IV fluids. Labs today show white count 9.06, hemoglobin 7.4, sodium 133, potassium 3.8, BUN 6, creatinine 0.74, blood glucose in the 100s, magnesium 1.6. Patient is in negative fluid balance in the last 24 hours. Blood pressure on the lower side at 106/70 throughout the evening, 118/71 today, heart rate 88, fevers have resolved for now, 94% on room air. He denies any chest pain, cough, or shortness of breath. Urinating without difficulty, gas and stool through ostomy. Continues with ADRIAN drain. Working with PT/OT plan is for rehab on discharge. Continues with ostomy teaching. 07/05/2021 Patient is resting in bed with lights at the bedside. Ostomy teaching done with today, who was able to do by herself. Continues on IV and PO antibiotics. ADRIAN drain looks more milky in color today. Continues on IV fluids. Hgb improved to 7.7, WBC 7.94, sodium 138, potassium 3.8, BUN 4.6, creatinine 0.7, glucose 1 00s, mag 1.9 Vitals stable, afebrile, heart rate 94, blood pressure 108/77 which is improving. No acute events overnight. Pain medications adjusted by primary today. ROS Constitutional: Reports generalized weakness, denies fever Cardio vascular: denied any chest pain, palpitations Gastrointestinal denied any nausea vomiting, reports stools through ostomy, reports mild abdominal discomfort. Pulmonary: Denied any shortness of breath cough Neurologic denied any new focal deficits All inpatient medications were reviewed and appropriate changes in these medications as dictated in the interval history and assessment and plan. PHYSICAL EXAMINATION: GENERAL: The patient is alert and oriented x3, not in any acute distress. Well developed, well nourished. HEENT: Pupils are round and equally reacting to light. EOMI. No scleral icterus. No conjunctival pallor. Normocephalic, atraumatic. No pharyngeal erythema. No thyromegaly. CARDIOVASCULAR: S1 and S2 present. No murmurs, rubs, or gallops. PULMONARY: Chest is clear to auscultation, no wheezing or crackles. ABDOMEN: Soft, tender, nondistended, normoactive bowel sounds. No palpable organomegaly. Post surgical abdomen with midline incision and ostomy. ADRIAN drain in place. MUSCULOSKELETAL: No joint swelling or deformity. EXTREMITIES: No cyanosis, clubbing, or pedal edema. NEUROLOGICAL: Gross neurological examination did not reveal any focal deficits. SKIN: No rashes. Assessment and Plan Assessment -Bowel perforation had ileus on admission. Post op day #14 laparotomy and small bowel resection, right colectomy ileostomy. Procalcitonin elevated at 1.57, CRP elevated. Antibiotics per ID. -Hyponatremia, resolved, still with decreased appetite. -History of Crohn's disease status post redo colectomy a few weeks ago -Leukocytosis secondary to sepsis, bowel perforation wound cultures are showing E.Coli and anaerobic gram negative bacilli this is from the surgical wound from his previous surgery, leukocytosis resolved. -Anemia; s/p 2 units PRBC hgb currently 7.7, unclear etiology, no evidence for acute bleeding. Stable. -History tobacco use, quit in 2020 -Obesity GI Prophylaxis Protonix DVT Prophylaxis Lovenox FULL CODE Plan Replace lytes Regular diet Increase activity level, PT/OT on board Encourage IS use Continue with IV and PO antibiotics IV fluids Pain Mangement per primary Rehab on discharge Thank you for this consultation we will continue to follow along this admission. Objective - Vital Signs Vital signs: Vital Signs Temp 97.8 F 07/05/21 08:00 Pulse 94 07/05/21 08:00 Resp 16 07/05/21 08:00 BP 108/77 07/05/21 08:00 Pulse Ox 96 07/05/21 08:00 Intake & Output 07/04/21 07/05/21 07/05/21 18:59 06:59 18:59 Intake Total 1940 950 Output Total 10 2645 220 Balance 1930 -1695 -220 Weight 118.8 kg 110.7 kg Intake: IV 600 950 Sodium Chloride 0.9% 1, 600 450 000 ml @ 50 mls/hr IV . Q20H MARIELOS Rx#:[id number] Vancomycin 1,750 mg In 500 Sodium Chloride 0.9% 500 ml 500 ml @ 167 mls/hr IVPB Q12HR MARIELOS Rx#: [id number] Intake, IV Titration 800 Amount Ampicillin-Sulbactam 3 gm 100 In Sodium Chloride 0.9% 100 ml @ 200 mls/hr IVPB Q8HR MARIELOS Rx#:[id number] Magnesium Sulfate-D5w Pmx 100 1 gm In Dextrose/Water 1 100ml.bag @ 100 mls/hr IVPB ONCE ONE Rx#: [id number] Sodium Ferric Gluconat- 100 Sucrose 125 mg In Sodium Chloride 0.9% 100 ml @ 100 mls/hr IVPB ONCE ONE Rx#:[id number] Vancomycin 1,750 mg In 500 Sodium Chloride 0.9% 500 ml 500 ml @ 167 mls/hr IVPB Q12HR MARIELOS Rx#: [id number] Oral 540 Output: Drainage 10 20 20 Abdomen 10 20 20 Urine 2425 Stool 200 200 Other: Voiding Method Urinal Urinal # Voids 3 - Labs CBC & Chem 7: 07/05/21 05:46 07/05/21 05:46 Labs: Abnormal Lab Results - Last 24 Hours (Table) 07/04/21 07/04/21 07/05/21 Range/Units 16:57 20:16 05:46 RBC 2.71 L (4.40-5.60) X 10*6/uL Hgb 7.7 L (13.0-17.0) g/dL Hct 25.9 L (39.6-50.0) % MCHC 29.7 L (32.0-37.0) g/dL RDW 17.5 H (11.5-14.5) % Immature Gran # 0.22 H (0.00-0.04) X 10*3/uL Lymphocytes # 0.84 L (0.90-5.00) X 10*3/uL BUN (9.0-27.0) mg/dL BUN/Creatinine Ratio (12.00-20.00) Ratio POC Glucose (mg/dL) 119 H 104 H (75-99) mg/dL Calcium (8.7-10.3) mg/dL 07/05/21 07/05/21 07/05/21 Range/Units 05:46 07:09 11:52 RBC (4.40-5.60) X 10*6/uL Hgb (13.0-17.0) g/dL Hct (39.6-50.0) % MCHC (32.0-37.0) g/dL RDW (11.5-14.5) % Immature Gran # (0.00-0.04) X 10*3/uL Lymphocytes # (0.90-5.00) X 10*3/uL BUN 4.6 L (9.0-27.0) mg/dL BUN/Creatinine Ratio 6.57 L (12.00-20.00) Ratio POC Glucose (mg/dL) 103 H 120 H (75-99) mg/dL Calcium 7.9 L (8.7-10.3) mg/dL Microbiology - Last 24 Hours (Table) 07/01/21 22:27 Blood Culture - Preliminary Blood No Growth after 72 hours
[2021-07-05] MEDS: MAGNESIUM SULFATE-D5W PMX 1 GM in DEXTROSE/WATER 1 100ML.BAG IVPB SCH ×2 (14:26→18:12)
[2021-07-05 16:36] LABS: Glucose,Whole Blood 100 mg/dL (75-99)
[2021-07-05 20:53] LABS: Glucose,Whole Blood 99 mg/dL (75-99)
[2021-07-05] MEDS: MELATONIN 3 MG TABLET PO SCH (20:53)
[2021-07-06] MEDS: SODIUM CHLORIDE 0.9% 1,000 ML IV SCH ×2 (02:26→19:38)
[2021-07-06] MEDS: traMADol 50 MG TAB PO SCH ×4 (05:42→22:03)
[2021-07-06 07:14] LABS: Glucose,Whole Blood 105 mg/dL (75-99)
[2021-07-06] MEDS ORDERED: VANCOMYCIN TROUGH DUE 1 EACH MISC MISCELLANE ONE (08:00)
[2021-07-06 08:27] LABS: African American GFR (CKD) >90 (>60 ml/min/1.73 sqM); Anion Gap 4 mmol/L; Blood Urea Nitrogen 5 mg/dL (9-20); Calcium 7.7 mg/dL (8.4-10.2); Carbon Dioxide 26 mmol/L (22-30); Chloride 106 mmol/L (98-107); Glucose 95 mg/dL (74-99); Magnesium 2.3 mg/dL (1.6-2.3); Non-African American GFR(CKD) >90 (>60 ml/min/1.73 sqM); Potassium 3.7 mmol/L (3.5-5.1); Sodium 136 mmol/L (137-145)
[2021-07-06] MEDS: INSULIN ASPART (NovoLOG) 100 UNIT/ML VIAL SQ SCH ×4 (09:11→19:38)
[2021-07-06] MEDS: ENOXAPARIN 40 MG/0.4 ML SYRINGE SQ SCH (09:42)
[2021-07-06] MEDS: PANTOPRAZOLE 40 MG TABLET PO SCH (09:42)
[2021-07-06] MEDS: metroNIDAZOLE 500 MG TAB PO SCH ×3 (09:42→22:03)
[2021-07-06] MEDS: VANCOMYCIN 1,750 MG in SODIUM CHLORIDE 0.9% 500 ML 500 ML IVPB SCH (09:43)
[2021-07-06] MEDS: IBUPROFEN 600 MG TAB PO PRN (09:43)
[2021-07-06 11:16] LABS: Glucose,Whole Blood 120 mg/dL (75-99)
--- NOTE | 2021-07-06 13:28 | P.PN ---
Subjective Progress Note Date: 07/06/21 CHIEF COMPLAINT: Drainage from abdominal incision HISTORY OF PRESENT ILLNESS: Patient is status post exploratory laparotomy, small bowel resection, right colectomy with ileostomy for abdominal fascial dehi scence, perforated small bowel and intra-abdominal abscess on 06/21/21. Patient having breakthrough pain with the Ultram 50mg. He required the IV Dilaudid only once yesterday. Denies any nausea or vomiting. Still reporting decreased appetite and poor oral intake. Ostomy functioning. Patient did walk to the window in the hallway a few times yesterday with physical therapy and nursing staff. Afebrile. CBC pending sodium 136 creatinine 0.95 magnesium 2.3 Patient seen and examined with Dr. steen PHYSICAL EXAM: VITAL SIGNS: Reviewed. GENERAL: Well-developed in no acute distress. HEENT: No sclera icterus. Extraocular movements grossly intact. Moist buccal mucosa. Head is atraumatic, normocephalic. ABDOMEN: Soft. Nondistended. Ileostomy brown stool. ADRIAN drain with 20ml serous purulent output. NEUROLOGIC: Alert and oriented. Cranial nerves II through XII grossly intact. ASSESSMENT: 1. 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 Ileus resolved 3. Crohn's disease with abscess status post ileocolectomy and washout of peritoneal abscess on 05/28/2021 4. Generalized weakness 5. Anemia likely dilutional from IV fluids PLAN: -Increase Ultram to 100 mg QID and continue Motrin as needed -Anticipate discharge possibly Sunday either ECF or home with home care -Continue regular diet -Continue local wound care -Continue to monitor hemoglobin -Continue to monitor ADRIAN drain output -Encouraged patient to increase activity -Continue supportive care -Continue antibiotics -Incentive spirometer ordered -Encouraged patient to ambulate -DVT prophylaxis Lovenox and GI prophylaxis Protonix Physician [employer] note has been reviewed by physician. Signing provider agrees with the documented findings, assessment, and plan of care. Objective - Vital Signs Vital signs: Vital Signs Temp 98.5 F 07/06/21 07:55 Pulse 102 H 07/06/21 07:55 Resp 18 07/06/21 07:55 BP 146/69 07/06/21 07:55 Pulse Ox 93 L 07/06/21 08:07 Intake & Output 07/05/21 07/06/21 07/06/21 18:59 06:59 18:59 Intake Total 1100 Output Total 1025 1170 Balance -1025 -70 Weight 110.7 kg Intake: IV 600 Sodium Chloride 0.9% 1, 600 000 ml @ 50 mls/hr IV . Q20H [facility]ELOS Rx#:[id number] Intake, IV Titration 500 Amount Vancomycin 1,750 mg In 500 Sodium Chloride 0.9% 500 ml 500 ml @ 167 mls/hr IVPB Q12HR MARIELOS Rx#: [id number] Output: Drainage 25 20 Abdomen 25 20 Urine 800 700 Stool 200 450 Other: Voiding Method Urinal # Voids 4 - Labs CBC & Chem 7: 07/05/21 05:46 07/06/21 07:37 Labs: Abnormal Lab Results - Last 24 Hours (Table) 07/05/21 07/06/21 07/06/21 Range/Units 16:35 07:12 07:37 Sodium 136 L (137-145) mmol/L BUN 5 L (9-20) mg/dL POC Glucose (mg/dL) 100 H 105 H (75-99) mg/dL Calcium 7.7 L (8.4-10.2) mg/dL 07/06/21 Range/Units 11:14 Sodium (137-145) mmol/L BUN (9-20) mg/dL POC Glucose (mg/dL) 120 H (75-99) mg/dL Calcium (8.4-10.2) mg/dL Microbiology - Last 24 Hours (Table) 07/01/21 22:27 Blood Culture - Preliminary Blood No Growth after 96 hours
--- NOTE | 2021-07-06 14:54 | P.PN ---
Subjective Progress Note Date: 07/06/21 41-year-old male with history of Crohn's disease and abscess had a ileocolectomy on 05/28/2021 subsequently discharged to [facility] patient rehabitation patient won't cultures during previous hospital physicians showed E. coli and Keke patient to complete the treatment with Augmentin and Diflucan. I did evaluate this patient at [facility] rehabilitation at that time I obtain the cultures as there was concern about new infection in the surgical site area will obtain those cultures, infectious disease evaluated the patient there. Patient was subsequently discharged. came in with the increase the pain and infection of the surgical site area now. Patient had a CT of the abdomen which is concerning for ileus although patient was having normal bowel movements. Patient is hyponatremic. Patient will sugars are highly elevated lower obtain hemoglobin and patient was started on insulin regimen along with sliding scale. 06/21/2021 Patient was evaluated by general surgery and the infectious disease. There is mild area of redness, infectious disease doesn't believe patient has significant superficial infection there is no evidence of abscesses on the CT either although patient may need only back as per infectious disease cultures are pending patient is being can urine Zosyn. 06/22/2021 Patient is found to have pneumoperitoneum later in the day and patient underwent emergent laparotomy. With a small bowel resection and right colectomy and ileostomy. Patient is presently intubated on mechanical ventilator with the assist-control ventilation with respiratory rate of 14 and tidal volume of 6 and FiO2 of 40% PEEP of 8 patient is on propofol for sedation white blood cell count went up to 22,000 from normal white count, colostomy is empty at this time. 06/23/2021 Patient is extubated today patient is presently on 5 L of oxygen is alert awake alert oriented 3 patient White blood cell count has come down. And presently 10,900. Patient has a Wheeler catheter urine output around 50-60 mL per hour. Patient is off pressor support. 06/24/2021 This is a pleasant 41 years old male who was recently discharged from the hospital for intra-abdominal infection presents with incisional infection and abdominal wound dehiscence and he underwent exploratory laparotomy status post right colectomy and small bowel resection with ileostomy and drainage of an abscess. He is covered with Zosyn. Once culture was growing E. coli and an air MICROORGANISMS. Also he is on normal saline. He is awake and alert, not in distress. He is on a clear liquid diet. No nausea vomiting. As mild abdominal pain, no abdominal distention and it makes little bowel movement. Hemoglobin drops 7 down to 6.1 today and he got one unit of blood transfusion and we will check hemoglobin the morning. 06/25/2021 Patient generally doing well, he was transferred to the general medical floor. He tolerates clear liquid diet and it was advanced today. Liquid diet. No vomiting, little expected abdominal pain. He has some loose bowel movement does not look C. diff but to go to check anyway. His hemoglobin was 6.1 yesterday and after 1 unit of blood transfusion went up to 6.6 but because of shortness and supply the couple for transfusion nowadays is 6.5 in this facility. We repeated hemoglobin and is stable at 6.8 and slightly improving referral keep monitoring for now. Patient with no overt signs of bleeding currently. Also surgery team on the case. No more fever. Chest x-ray showing no definite lung capacity per radiologist. Remains on Zosyn and normal saline at 100 mL per hour. Also TPN 06/26/2021 Patient with infected incisional wound and possible deep intra-abdominal infection and his been treated with Zosyn and improving gradually. He has no abdominal pain, he is tolerating his full liquid diet well. No vomiting. He has some loose bowel movement. He remains on TPN. Wheeler catheter is discontinue it and we are checking bladder scan We'll check C. diff although suspicion is low Patient himself feels better and he looks pleased with the dissection of his ill ness going to. All his questions answered 06/27/2021 Patient awake and alert and hemodynamically stable however his hemoglobin was low at 6.4 and received one unit of blood transfusion. Other than that her medicine TPN which is started to be tapered down by surgery team and the meantime he remains on liquid diet per surgery team. Colostomy back was showing some brown stool although still loose but not liquid as before. Looks like patient improving gradually. He remains on Zosyn. 06/28/2021 Patient kept on liquid diet tolerating diet well. Distal ileostomy back working slowly area at the patient with minimal abdominal pain. However he developed significant anemia yesterday needing one unit of blood transfusion and currently his hemoglobin 7.7. TPN been tapered down until discontinued while encourage oral intake gradually. And he remains on antibiotics of Zosyn to cover intra-abdominal infection Wheeler catheter was discontinued 2 days ago, his pain well. However we'll check postvoid residual 06/29/2021 Patient evaluated today sitting up in chair. Denies acute events overnight, denies abdominal pain. Passing gas from ostomy, staff is emptying ostomy currently. Patient states next session will come in for training and he is hoping to be comfortable resuming care of the ostomy. Labs today show WBC 9.42, hemoglobin 7.7, platelets 257, calcium 7.9, total bili 1.50, total protein 5.1, albumin 2.3. Afebrile, heart rate 97, blood pressure 120/77, 99% on 2L NC which he states he is using as needed more so ate night. He is getting up to 1500 on his IS encouraged to keep using and to ambulate as tolerated. Full liquid diet with ensure, on average eating about 50% of meals. Continues on IV zosyn. Plan for [facility] on discharge once medically stable. 06/30/2021 Patient values today sitting up in a chair, no acute events overnight he did work with physical therapy and is having increased abdominal pain requesting pain medication. Using his incentive spirometer, abdominal packing in place, ostomy with stool he states he is passing more gas than stool today. Labs today show stable hemoglobin 7.9, blood sugar in the 100s. He is off the TPN and now on full liquid diet with ensure working on increasing his oral intake. Vital stable, afebrile, heart rate 99, blood pressure 106/68 and he is 98% on 2 L nasal cannula. 07/01/2021 Patient evaluated today resting in bed. He did have a fever, 100.3 throughout the night that he said finally broke around midnight. Fever free since. Blood pressure on the lower side at 100/67, heart rate 90, 99% on room air. He is on IV Zosyn. Labs today show stable white count 8.42, hemoglobin 7.1, platelet count 243. Blood sugars in the 100s. Ostomy care completed with teaching and patient was able to semi-participate. Otherwise no acute events overnight. Encourage incentive spirometry use and continued ambulation. 07/02/2021 Patient continues with low grade fevers throughout the night, none today, using IS more frequently. Next ostomy change planned for sunday with patient hoping to be more hands on. Tolerating diet, discussed other options from kitchen and bringing food as well he is hoping to be able to increase his meal intake. WBC today 9.41, hemoglobin 7.0, platelets 306, sodium 131, potassium 3.8, BUN 7.5, creatinine 0.7, glucose in the 90's, calcium 7.6, total trevin 1.4, alk phos 133, CRP 23.80, Procalcitonin today 1.57. Heart rate in the high 90's to low 100's, blood pressure on the softer side 90's/60's, on room air. Antiobiotics adjusted by ID, patient now on IV rocephin, IV vancomycin. 07/03/2021 Patient evaluated today resting in bed. No more fevers. Encourage oral intake ambulation and IS. Antibiotics in the form of IV Unasyn, PO Flagyl, cultures showing anaerobes as well as E. coli without drug resistance. Blood cultures are negative so far. Labs today white count 9.64, hemoglobin 7.2, sodium 131, potassium 3.7, BUN 6, creatinine 0.75, blood sugars in the 100s. Heart rate 93, blood pressure 115/74, 95% room air. 07/04/2021 Patient evaluated today resting in bed he is encouraged to sit in the chair during the day. Encouraged to continue using his incentive spirometer. Antibiotics in the form of IV vancomycin and by mouth Flagyl, continues on IV fluids. Labs today show white count 9.06, hemoglobin 7.4, sodium 133, potassium 3.8, BUN 6, creatinine 0.74, blood glucose in the 100s, magnesium 1.6. Patient is in negative fluid balance in the last 24 hours. Blood pressure on the lower side at 106/70 throughout the evening, 118/71 today, heart rate 88, fevers have resolved for now, 94% on room air. He denies any chest pain, cough, or shortness of breath. Urinating without difficulty, gas and stool through ostomy. Continues with ADRIAN drain. Working with PT/OT plan is for rehab on discharge. Continues with ostomy teaching. 07/05/2021 Patient is resting in bed with lights at the bedside. Ostomy teaching done with today, who was able to do by herself. Continues on IV and PO antibiotics. ADRIAN drain looks more milky in color today. Continues on IV fluids. Hgb improved to 7.7, WBC 7.94, sodium 138, potassium 3.8, BUN 4.6, creatinine 0.7, glucose 1 00s, mag 1.9 Vitals stable, afebrile, heart rate 94, blood pressure 108/77 which is improving. No acute events overnight. Pain medications adjusted by primary today. 07/06/2021 Patient up in the chair today, working with PT/OT. Discussed with primary, possibility of DC Sunday, patient is hoping for home but will go to rehab if necessary. Reports increase in abdominal pain, dilaudid was decreased. No acute events over night, he denies chest pain, cough, shortness of breath. using IS. Trying to increase oral intake. Labs today 136, potassium 3.7, blood sugar 126, magnesium 2.3, calcium 7.7. Vitals stable afebrile, heart rate 69, pressure 112/72, 97% room air. ROS Constitutional: Reports generalized weakness, denies fever Cardio vascular: denied any chest pain, palpitations Gastrointestinal denied any nausea vomiting, reports stools through ostomy, reports mild abdominal discomfort. Pulmonary: Denied any shortness of breath cough Neurologic denied any new focal deficits All inpatient medications were reviewed and appropriate changes in these medications as dictated in the interval history and assessment and plan. PHYSICAL EXAMINATION: GENERAL: The patient is alert and oriented x3, not in any acute distress. Well developed, well nourished. HEENT: Pupils are round and equally reacting to light. EOMI. No scleral icterus. No conjunctival pallor. Normocephalic, atraumatic. No pharyngeal erythema. No thyromegaly. CARDIOVASCULAR: S1 and S2 present. No murmurs, rubs, or gallops. PULMONARY: Chest is clear to auscultation, no wheezing or crackles. ABDOMEN: Soft, tender, nondistended, normoactive bowel sounds. No palpable organomegaly. Post surgical abdomen with midline incision and ostomy. ADRIAN drain in place. MUSCULOSKELETAL: No joint swelling or deformity. EXTREMITIES: No cyanosis, clubbing, or pedal edema. NEUROLOGICAL: Gross neurological examination did not reveal any focal deficits. SKIN: No rashes. Assessment and Plan Assessment -Bowel perforation had ileus on admission. Post op day #15 laparotomy and small bowel resection, right colectomy ileostomy. Procalcitonin elevated at 1.57, CRP elevated. Antibiotics per ID. -Hyponatremia, resolved, still with decreased appetite. -History of Crohn's disease status post redo colectomy a few weeks ago -Leukocytosis secondary to sepsis, bowel perforation wound cultures are showing E.Coli and anaerobic gram negative bacilli this is from the surgical wound from his previous surgery, leukocytosis resolved. -Anemia; s/p 2 units PRBC hgb currently 7.7, unclear etiology, no evidence for acute bleeding. Stable. -History tobacco use, quit in 2020 -Obesity GI Prophylaxis Protonix DVT Prophylaxis Lovenox FULL CODE Plan Replace lytes Regular diet Increase activity level, PT/OT on board Encourage IS use Continue with IV and PO antibiotics IV fluids Pain Mangement per primary Rehab on discharge Thank you for this consultation we will continue to follow along this admission. Objective - Vital Signs Vital signs: Vital Signs Temp 97.8 F 07/06/21 14:00 Pulse 69 07/06/21 14:00 Resp 18 07/06/21 14:00 BP 112/72 07/06/21 14:00 Pulse Ox 97 07/06/21 14:00 Intake & Output 07/05/21 07/06/21 07/06/21 18:59 06:59 18:59 Intake Total 1100 Output Total 1025 1170 190 Balance -1025 -70 -190 Weight 110.7 kg Intake: IV 600 Sodium Chloride 0.9% 1, 600 000 ml @ 50 mls/hr IV . Q20H [facility] Rx#:[id number] Intake, IV Titration 500 Amount Vancomycin 1,750 mg In 500 Sodium Chloride 0.9% 500 ml 500 ml @ 167 mls/hr IVPB Q12HR [facility] Rx#: [id number] Output: Drainage 25 20 40 Abdomen 25 20 40 Urine 800 700 Stool 200 450 150 Other: Voiding Method Urinal Urinal # Voids 4 - Labs CBC & Chem 7: 07/05/21 05:46 07/06/21 07:37 Labs: Abnormal Lab Results - Last 24 Hours (Table) 07/05/21 07/06/21 07/06/21 Range/Units 16:35 07:12 07:37 Sodium 136 L (137-145) mmol/L BUN 5 L (9-20) mg/dL POC Glucose (mg/dL) 100 H 105 H (75-99) mg/dL Calcium 7.7 L (8.4-10.2) mg/dL 07/06/21 Range/Units 11:14 Sodium (137-145) mmol/L BUN (9-20) mg/dL POC Glucose (mg/dL) 120 H (75-99) mg/dL Calcium (8.4-10.2) mg/dL Microbiology - Last 24 Hours (Table) 07/01/21 22:27 Blood Culture - Preliminary Blood No Growth after 96 hours
[2021-07-06 16:23] LABS: Glucose,Whole Blood 119 mg/dL (75-99)
[2021-07-06] MEDS: MEGESTROL 40 MG TAB PO SCH (17:55)
[2021-07-06] MEDS: MELATONIN 3 MG TABLET PO SCH (22:03)
[2021-07-07 06:25] LABS: African American GFR (CKD) 58 (>60 ml/min/1.73 sqM); Non-African American GFR(CKD) 51 (>60 ml/min/1.73 sqM)
[2021-07-07 06:44] LABS: Glucose,Whole Blood 94 mg/dL (75-99)
[2021-07-07] MEDS: metroNIDAZOLE 500 MG TAB PO SCH ×3 (07:33→21:16)
[2021-07-07] MEDS: traMADol 50 MG TAB PO SCH ×4 (07:33→21:16)
[2021-07-07] MEDS: PANTOPRAZOLE 40 MG TABLET PO SCH (07:33)
[2021-07-07] MEDS: ENOXAPARIN 40 MG/0.4 ML SYRINGE SQ SCH (07:35)
[2021-07-07] MEDS: INSULIN ASPART (NovoLOG) 100 UNIT/ML VIAL SQ SCH ×4 (07:45→19:12)
[2021-07-07] MEDS: MEGESTROL 40 MG TAB PO SCH ×2 (07:45→11:58)
[2021-07-07] MEDS ORDERED: VANCOMYCIN 1,750 MG in SODIUM CHLORIDE 0.9% 500 ML 500 ML IVPB SCH (09:00)
[2021-07-07] MEDS: SODIUM CHLORIDE 0.9% 1,000 ML IV SCH (09:56)
[2021-07-07 10:26] LABS: Anisocytosis Slight; Basophils % (A) 0 %; Eosinophils # (A) 0.1 k/uL (0-0.7); Eosinophils % (A) 2 %; HCT 27.4 % (39.0-53.0); HGB 8.1 gm/dL (13.0-17.5); Hypochromasia Marked; Lymphocytes # (A) 0.8 k/uL (1.0-4.8); Lymphocytes % (A) 10 %; MCH 29.7 pg (25.0-35.0); MCHC 29.7 g/dL (31.0-37.0); MCV 99.9 fL (80.0-100.0); Macrocytosis Slight; Mean Platelet Volume 7.9; Monocytes # (A) 0.4 k/uL (0-1.0); Monocytes % (A) 5 %; Neutrophils # (A) 7.1 k/uL (1.3-7.7); Neutrophils % (A) 82 %; Platelet Count 404 k/uL (150-450); RBC 2.74 m/uL (4.30-5.90); RDW 16.6 % (11.5-15.5); WBC 8.7 k/uL (3.8-10.6)
[2021-07-07] MEDS: ONDANSETRON 4 MG/2 ML VIAL IVP PRN ×2 (10:42→15:19)
[2021-07-07 11:15] LABS: Glucose,Whole Blood 89 mg/dL (75-99)
[2021-07-07 11:33] LABS: Anion Gap 7 mmol/L; Blood Urea Nitrogen 9 mg/dL (9-20); Calcium 7.8 mg/dL (8.4-10.2); Carbon Dioxide 21 mmol/L (22-30); Chloride 106 mmol/L (98-107); Glucose 94 mg/dL (74-99); Potassium 3.7 mmol/L (3.5-5.1); Sodium 134 mmol/L (137-145)
--- NOTE | 2021-07-07 11:33 | P.PN ---
Subjective Progress Note Date: 07/07/21 CHIEF COMPLAINT: Drainage from abdominal incision HISTORY OF PRESENT ILLNESS: Patient is status post exploratory laparotomy, small bowel resection, right colectomy with ileostomy for abdominal fascial dehi scence, perforated small bowel and intra-abdominal abscess on 06/21/21. Patient reports that his pain is controlled. Denies any nausea or vomiting. Ostomy is functioning. He has had poor oral intake. Megace has been added to help stimulate appetite. Patient reports ambulating in hallway. Afebrile. WBC 8.7 hemoglobin 8.1 creatinine 1.66 patient started on fluids by medicine service. Patient seen and examined with Dr. steen PHYSICAL EXAM: VITAL SIGNS: Reviewed. GENERAL: Well-developed in no acute distress. HEENT: No sclera icterus. Extraocular movements grossly intact. Moist buccal mucosa. Head is atraumatic, normocephalic. ABDOMEN: Soft. Nondistended. Ileostomy brown stool. ADRIAN drain with 30 ml purulent output. Incision site healthy and pink with some granulation tissue noted NEUROLOGIC: Alert and oriented. Cranial nerves II through XII grossly intact. ASSESSMENT: 1. 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 Ileus resolved 3. Crohn's disease with abscess status post ileocolectomy and washout of peritoneal abscess on 05/28/2021 4. Generalized weakness 5. Anemia likely dilutional from IV fluids 6. Acute kidney injury PLAN: -Continue IV fluids -Discontinue Motrin due to acute kidney injury -Anticipate discharge possibly Sunday either ECF or home with home care -Continue regular diet -Continue local wound care -Continue to monitor hemoglobin -Continue to monitor ADRIAN drain output -Encouraged patient to increase activity -Continue supportive care -Continue antibiotics -Incentive spirometer ordered -Encouraged patient to ambulate -DVT prophylaxis Lovenox and GI prophylaxis Protonix Physician Clarifier note has been reviewed by physician. Signing provider agrees with the documented findings, assessment, and plan of care. Objective - Vital Signs Vital signs: Vital Signs Temp 97.7 F 07/07/21 07:01 Pulse 71 07/07/21 07:01 Resp 17 07/07/21 08:00 BP 121/76 07/07/21 07:01 Pulse Ox 95 07/07/21 07:01 Intake & Output 07/06/21 07/07/21 07/07/21 18:59 06:59 18:59 Intake Total 2180 Output Total 1195 5 430 Balance 985 -5 -430 Intake: Intake, IV Titration 1100 Amount Sodium Chloride 0.9% 1, 600 000 ml @ 50 mls/hr IV . Q20H [facility] Rx#:[id number] Vancomycin 1,750 mg In 500 Sodium Chloride 0.9% 500 ml 500 ml @ 167 mls/hr IVPB Q24H [facility] Rx#: [id number] Oral 1080 Output: Drainage 45 5 30 Abdomen 45 5 30 Urine 900 300 Stool 250 100 Other: Voiding Method Urinal Urinal Urinal # Voids 3 - Labs CBC & Chem 7: 07/07/21 05:53 07/07/21 05:53 Labs: Abnormal Lab Results - Last 24 Hours (Table) 07/06/21 07/07/21 07/07/21 Range/Units 16:21 05:53 05:53 RBC 2.74 L (4.30-5.90) m/uL Hgb 8.1 L (13.0-17.5) gm/dL Hct 27.4 L (39.0-53.0) % MCHC 29.7 L (31.0-37.0) g/dL RDW 16.6 H (11.5-15.5) % Lymphocytes # 0.8 L (1.0-4.8) k/uL Creatinine 1.66 H (0.66-1.25) mg/dL POC Glucose (mg/dL) 119 H (75-99) mg/dL Microbiology - Last 24 Hours (Table) 07/01/21 22:27 Blood Culture - Preliminary Blood No Growth after 120 hours
[2021-07-07 15:30] VITALS: BMI 36.0
[2021-07-07 16:13] LABS: Glucose,Whole Blood 96 mg/dL (75-99)
[2021-07-07] MEDS: MELATONIN 3 MG TABLET PO SCH (21:16)
--- NOTE | 2021-07-07 22:34 | P.PN ---
Subjective Progress Note Date: 07/07/21 Principal diagnosis: Abdominal wound infection Patient is 41 year male with a past medical history significant for Crohn's disease in this patient who recently did have a laparotomy for abdominal abscess, no readmitted to the hospital with abdominal pain and concern for abdominal wound dehiscence and possible infection. Patient was taken to the OR 06/21/2021 patient is status post laparotomy right colectomy and ileostomy and drainage of abdominal abscess, I was asked to reevaluate the patient by the medical team on 07/07/2021 for adjustment of his antibiotic On today's evaluation that is 07/07/2021, the patient denies any fever or any chills, the patient denies having any chest pain shortness of breath or cough. The patient abdominal pain is currently controlled with the current pain medication, the patient denies nausea no vomiting and did have output in his colostomy bag Objective - Vital Signs Vital signs: Vital Signs Temp 97.7 F 07/07/21 07:01 Pulse 71 07/07/21 07:01 Resp 17 07/07/21 08:00 BP 121/76 07/07/21 07:01 Pulse Ox 95 07/07/21 07:01 Intake & Output 07/06/21 07/07/21 07/07/21 18:59 06:59 18:59 Intake Total 2180 Output Total 1195 5 430 Balance 985 -5 -430 Intake: Intake, IV Titration 1100 Amount Sodium Chloride 0.9% 1, 600 000 ml @ 50 mls/hr IV . Q20H [facility] Rx#:[id number] Vancomycin 1,750 mg In 500 Sodium Chloride 0.9% 500 ml 500 ml @ 167 mls/hr IVPB Q24H [facility] Rx#: [id number] Oral 1080 Output: Drainage 45 5 30 Abdomen 45 5 30 Urine 900 300 Stool 250 100 Other: Voiding Method Urinal Urinal Urinal # Voids 3 - Exam GENERAL DESCRIPTION:[ Patient is awake and alert in no distress] HEENT: [Oral mucosa is dry and no pharyngeal erythema] RESPIRATORY SYSTEM: [Unlabored breathing decreased. The base] CARDIA VASCULAR SYSTEM: [S1-S2 regular rate and rhythm no murmur] GI: [Abdominal soft midline abdominal wound dressing has just been changed by the nursing staff mention wound base looks clean with minimal slough tissue, ADRIAN drain did have some purulent drainage EXTREMITIES: [No edema feet] - Labs CBC & Chem 7: 07/07/21 05:53 07/07/21 05:53 Labs: Abnormal Lab Results - Last 24 Hours (Table) 07/06/21 07/07/21 07/07/21 Range/Units 16:21 05:53 05:53 RBC 2.74 L (4.30-5.90) m/uL Hgb 8.1 L (13.0-17.5) gm/dL Hct 27.4 L (39.0-53.0) % MCHC 29.7 L (31.0-37.0) g/dL RDW 16.6 H (11.5-15.5) % Lymphocytes # 0.8 L (1.0-4.8) k/uL Sodium 134 L (137-145) mmol/L Carbon Dioxide 21 L (22-30) mmol/L Creatinine 1.66 H (0.66-1.25) mg/dL POC Glucose (mg/dL) 119 H (75-99) mg/dL Calcium 7.8 L (8.4-10.2) mg/dL Microbiology - Last 24 Hours (Table) 07/01/21 22:27 Blood Culture - Preliminary Blood No Growth after 120 hours Assessment and Plan (1) Incisional infection Current Visit: Yes Status: Acute Code(s): T81.49XA - INFECTION FOLLOWING A PROCEDURE, OTHER SURGICAL SITE, INIT SNOMED Code(s): 18826940 Plan: 1-patient admitted to the hospital with abdominal pain with abdominal incision dehiscence and concern for possible deep infection, and this patient who is status post exploratory laparotomy status post right colectomy and small bowel resection ileostomy and drainage of the abscess, no OR cultures were done superficial abdominal cultures showed E. coli and anaerobes, patient was doing well however the patient did have a new fever, the blood culture has been obtained which are negative so far the patient antibiotics will be adjusted to Rocephin and Flagyl discontinue vancomycin as no MRSA has been grown culture be negative and continue local wound care per surgery
--- NOTE | 2021-07-07 22:50 | P.PN ---
Subjective Progress Note Date: 07/07/21 41-year-old male with history of Crohn's disease and abscess had a ileocolectomy on 05/28/2021 subsequently discharged to [facility] patient rehabitation patient won't cultures during previous hospital physicians showed E. coli and Keke patient to complete the treatment with Augmentin and Diflucan. I did evaluate this patient at [facility] rehabilitation at that time I obtain the cultures as there was concern about new infection in the surgical site area will obtain those cultures, infectious disease evaluated the patient there. Patient was subsequently discharged. came in with the increase the pain and infection of the surgical site area now. Patient had a CT of the abdomen which is concerning for ileus although patient was having normal bowel movements. Patient is hyponatremic. Patient will sugars are highly elevated lower obtain hemoglobin and patient was started on insulin regimen along with sliding scale. 06/21/2021 Patient was evaluated by general surgery and the infectious disease. There is mild area of redness, infectious disease doesn't believe patient has significant superficial infection there is no evidence of abscesses on the CT either although patient may need only back as per infectious disease cultures are pending patient is being can urine Zosyn. 06/22/2021 Patient is found to have pneumoperitoneum later in the day and patient underwent emergent laparotomy. With a small bowel resection and right colectomy and ileostomy. Patient is presently intubated on mechanical ventilator with the assist-control ventilation with respiratory rate of 14 and tidal volume of 6 and FiO2 of 40% PEEP of 8 patient is on propofol for sedation white blood cell count went up to 22,000 from normal white count, colostomy is empty at this time. 06/23/2021 Patient is extubated today patient is presently on 5 L of oxygen is alert awake alert oriented 3 patient White blood cell count has come down. And presently 10,900. Patient has a Wheeler catheter urine output around 50-60 mL per hour. Patient is off pressor support. 06/24/2021 This is a pleasant 41 years old male who was recently discharged from the hospital for intra-abdominal infection presents with incisional infection and abdominal wound dehiscence and he underwent exploratory laparotomy status post right colectomy and small bowel resection with ileostomy and drainage of an abscess. He is covered with Zosyn. Once culture was growing E. coli and an air MICROORGANISMS. Also he is on normal saline. He is awake and alert, not in distress. He is on a clear liquid diet. No nausea vomiting. As mild abdominal pain, no abdominal distention and it makes little bowel movement. Hemoglobin drops 7 down to 6.1 today and he got one unit of blood transfusion and we will check hemoglobin the morning. 06/25/2021 Patient generally doing well, he was transferred to the general medical floor. He tolerates clear liquid diet and it was advanced today. Liquid diet. No vomiting, little expected abdominal pain. He has some loose bowel movement does not look C. diff but to go to check anyway. His hemoglobin was 6.1 yesterday and after 1 unit of blood transfusion went up to 6.6 but because of shortness and supply the couple for transfusion nowadays is 6.5 in this facility. We repeated hemoglobin and is stable at 6.8 and slightly improving referral keep monitoring for now. Patient with no overt signs of bleeding currently. Also surgery team on the case. No more fever. Chest x-ray showing no definite lung capacity per radiologist. Remains on Zosyn and normal saline at 100 mL per hour. Also TPN 06/26/2021 Patient with infected incisional wound and possible deep intra-abdominal infection and his been treated with Zosyn and improving gradually. He has no abdominal pain, he is tolerating his full liquid diet well. No vomiting. He has some loose bowel movement. He remains on TPN. Wheeler catheter is discontinue it and we are checking bladder scan We'll check C. diff although suspicion is low Patient himself feels better and he looks pleased with the dissection of his ill ness going to. All his questions answered 06/27/2021 Patient awake and alert and hemodynamically stable however his hemoglobin was low at 6.4 and received one unit of blood transfusion. Other than that her medicine TPN which is started to be tapered down by surgery team and the meantime he remains on liquid diet per surgery team. Colostomy back was showing some brown stool although still loose but not liquid as before. Looks like patient improving gradually. He remains on Zosyn. 06/28/2021 Patient kept on liquid diet tolerating diet well. Distal ileostomy back working slowly area at the patient with minimal abdominal pain. However he developed significant anemia yesterday needing one unit of blood transfusion and currently his hemoglobin 7.7. TPN been tapered down until discontinued while encourage oral intake gradually. And he remains on antibiotics of Zosyn to cover intra-abdominal infection Wheeler catheter was discontinued 2 days ago, his pain well. However we'll check postvoid residual 06/29/2021 Patient evaluated today sitting up in chair. Denies acute events overnight, denies abdominal pain. Passing gas from ostomy, staff is emptying ostomy currently. Patient states next session will come in for training and he is hoping to be comfortable resuming care of the ostomy. Labs today show WBC 9.42, hemoglobin 7.7, platelets 257, calcium 7.9, total bili 1.50, total protein 5.1, albumin 2.3. Afebrile, heart rate 97, blood pressure 120/77, 99% on 2L NC which he states he is using as needed more so ate night. He is getting up to 1500 on his IS encouraged to keep using and to ambulate as tolerated. Full liquid diet with ensure, on average eating about 50% of meals. Continues on IV zosyn. Plan for [facility] on discharge once medically stable. 06/30/2021 Patient values today sitting up in a chair, no acute events overnight he did work with physical therapy and is having increased abdominal pain requesting pain medication. Using his incentive spirometer, abdominal packing in place, ostomy with stool he states he is passing more gas than stool today. Labs today show stable hemoglobin 7.9, blood sugar in the 100s. He is off the TPN and now on full liquid diet with ensure working on increasing his oral intake. Vital stable, afebrile, heart rate 99, blood pressure 106/68 and he is 98% on 2 L nasal cannula. 07/01/2021 Patient evaluated today resting in bed. He did have a fever, 100.3 throughout the night that he said finally broke around midnight. Fever free since. Blood pressure on the lower side at 100/67, heart rate 90, 99% on room air. He is on IV Zosyn. Labs today show stable white count 8.42, hemoglobin 7.1, platelet count 243. Blood sugars in the 100s. Ostomy care completed with teaching and patient was able to semi-participate. Otherwise no acute events overnight. Encourage incentive spirometry use and continued ambulation. 07/02/2021 Patient continues with low grade fevers throughout the night, none today, using IS more frequently. Next ostomy change planned for sunday with patient hoping to be more hands on. Tolerating diet, discussed other options from kitchen and bringing food as well he is hoping to be able to increase his meal intake. WBC today 9.41, hemoglobin 7.0, platelets 306, sodium 131, potassium 3.8, BUN 7.5, creatinine 0.7, glucose in the 90's, calcium 7.6, total trevin 1.4, alk phos 133, CRP 23.80, Procalcitonin today 1.57. Heart rate in the high 90's to low 100's, blood pressure on the softer side 90's/60's, on room air. Antiobiotics adjusted by ID, patient now on IV rocephin, IV vancomycin. 07/03/2021 Patient evaluated today resting in bed. No more fevers. Encourage oral intake ambulation and IS. Antibiotics in the form of IV Unasyn, PO Flagyl, cultures showing anaerobes as well as E. coli without drug resistance. Blood cultures are negative so far. Labs today white count 9.64, hemoglobin 7.2, sodium 131, potassium 3.7, BUN 6, creatinine 0.75, blood sugars in the 100s. Heart rate 93, blood pressure 115/74, 95% room air. 07/04/2021 Patient evaluated today resting in bed he is encouraged to sit in the chair during the day. Encouraged to continue using his incentive spirometer. Antibiotics in the form of IV vancomycin and by mouth Flagyl, continues on IV fluids. Labs today show white count 9.06, hemoglobin 7.4, sodium 133, potassium 3.8, BUN 6, creatinine 0.74, blood glucose in the 100s, magnesium 1.6. Patient is in negative fluid balance in the last 24 hours. Blood pressure on the lower side at 106/70 throughout the evening, 118/71 today, heart rate 88, fevers have resolved for now, 94% on room air. He denies any chest pain, cough, or shortness of breath. Urinating without difficulty, gas and stool through ostomy. Continues with ADRIAN drain. Working with PT/OT plan is for rehab on discharge. Continues with ostomy teaching. 07/05/2021 Patient is resting in bed with at the bedside. Ostomy teaching done with today, who was able to do by herself. Continues on IV and PO antibiotics. ADRIAN drain looks more milky in color today. Continues on IV fluids. Hgb improved to 7.7, WBC 7.94, sodium 138, potassium 3.8, BUN 4.6, creatinine 0.7, glucose 100s, mag 1.9 Vitals stable, afebrile, heart rate 94, blood pressure 108/77 which is improving. No acute events overnight. Pain medications adjusted by primary today. 07/06/2021 Patient up in the chair today, working with PT/OT. Discussed with primary, possibility of DC Sunday, patient is hoping for home but will go to rehab if necessary. Reports increase in abdominal pain, dilaudid was decreased. No acute events over night, he denies chest pain, cough, shortness of breath. using IS. Trying to increase oral intake. Labs today 136, potassium 3.7, blood sugar 126, magnesium 2.3, calcium 7.7. Vitals stable afebrile, heart rate 69, pressure 112/72, 97% room air. 07/07/2021 Patient evaluated today resting in bed. Seems discouraged about his poor oral intake. He was recommending to trial megace to see if appetite improves. Otherwise discussed possibly starting patient on an antidepressant. He does state his mood is down due to prolonged hospitalization and his recovery period. He is hopeful to be discharged by the end of the week, and hopefully returning home which I think will help his overall mood and probably his appetite. Creatinine increased from 0.9 to 1.66 today, increased IV fluids to 0.9 at 75, however per RN they weren't infusing yesterday. Hgb stable at 8.1, sodium 134, potassium 3.7, calcium 7.8. Antibiotics per ID on IV rocephin, PO flagyl. Vitals: Afebrile, heart rate 86, blood pressure 110/71, 96% room air. ROS Constitutional: Reports generalized weakness, denies fever Cardio vascular: denied any chest pain, palpitations Gastrointestinal denied any nausea vomiting, reports stools through ostomy, reports decreased appetite. Pulmonary: Denied any shortness of breath cough Neurologic denied any new focal deficits All inpatient medications were reviewed and appropriate changes in these medications as dictated in the interval history and assessment and plan. PHYSICAL EXAMINATION: GENERAL: The patient is alert and oriented x3, not in any acute distress. Well developed, well nourished. HEENT: Pupils are round and equally reacting to light. EOMI. No scleral icterus. No conjunctival pallor. Normocephalic, atraumatic. No pharyngeal erythema. No thyromegaly. CARDIOVASCULAR: S1 and S2 present. No murmurs, rubs, or gallops. PULMONARY: Chest is clear to auscultation, no wheezing or crackles. ABDOMEN: Soft, tender, nondistended, normoactive bowel sounds. No palpable organomegaly. Post surgical abdomen with midline incision and ostomy. ADRIAN drain in place. MUSCULOSKELETAL: No joint swelling or deformity. EXTREMITIES: No cyanosis, clubbing, or pedal edema. NEUROLOGICAL: Gross neurological examination did not reveal any focal deficits. SKIN: No rashes. Assessment and Plan Assessment -Bowel perforation had ileus on admission. Post op day #16 laparotomy and small bowel resection, right colectomy ileostomy. Procalcitonin elevated at 1.57, CRP elevated. Antibiotics per ID. -Hyponatremia, resolved, still with decreased appetite. -Acute kidney injury mostly prerenal patient with poor oral intake, IV fluids resumed -History of Crohn's disease status post redo colectomy prior to admission -Leukocytosis secondary to sepsis, bowel perforation wound cultures are showing E.Coli and anaerobic gram negative bacilli this is from the surgical wound from his previous surgery, leukocytosis resolved. -Anemia; s/p 2 units PRBC hgb currently 8.1, unclear etiology, no evidence for acute bleeding. Stable. -History tobacco use, quit in 2020 -Obesity GI Prophylaxis Protonix DVT Prophylaxis Lovenox as per primary FULL CODE Plan Replace lytes Regular diet Megace for appetite stimu;ant Increase activity level, PT/OT on board Encourage IS use Continue with IV and PO antibiotics IV fluids Pain Mangement per primary Discharge planning, rehab vs. subacute rehab Thank you for this consultation we will continue to follow along this admission. Objective - Vital Signs Vital signs: Vital Signs Temp 97.7 F 07/07/21 13:14 Pulse 85 07/07/21 13:14 Resp 17 07/07/21 13:14 BP 127/80 07/07/21 13:14 Pulse Ox 97 07/07/21 13:14 Intake & Output 07/06/21 07/07/21 07/07/21 18:59 06:59 18:59 Intake Total 2180 Output Total 1195 5 430 Balance 985 -5 -430 Intake: Intake, IV Titration 1100 Amount Sodium Chloride 0.9% 1, 600 000 ml @ 50 mls/hr IV . Q20H [facility] Rx#:[id number] Vancomycin 1,750 mg In 500 Sodium Chloride 0.9% 500 ml 500 ml @ 167 mls/hr IVPB Q24H [facility] Rx#: [id number] Oral 1080 Output: Drainage 45 5 30 Abdomen 45 5 30 Urine 900 300 Stool 250 100 Other: Voiding Method Urinal Urinal Urinal # Voids 3 - Labs CBC & Chem 7: 07/07/21 05:53 07/07/21 05:53 Labs: Abnormal Lab Results - Last 24 Hours (Table) 07/06/21 07/07/21 07/07/21 Range/Units 16:21 05:53 05:53 RBC 2.74 L (4.30-5.90) m/uL Hgb 8.1 L (13.0-17.5) gm/dL Hct 27.4 L (39.0-53.0) % MCHC 29.7 L (31.0-37.0) g/dL RDW 16.6 H (11.5-15.5) % Lymphocytes # 0.8 L (1.0-4.8) k/uL Sodium 134 L (137-145) mmol/L Carbon Dioxide 21 L (22-30) mmol/L Creatinine 1.66 H (0.66-1.25) mg/dL POC Glucose (mg/dL) 119 H (75-99) mg/dL Calcium 7.8 L (8.4-10.2) mg/dL Microbiology - Last 24 Hours (Table) 07/01/21 22:27 Blood Culture - Preliminary Blood No Growth after 120 hours
[2021-07-08] MEDS: SODIUM CHLORIDE 0.9% 1,000 ML IV SCH ×2 (01:42→13:04)
[2021-07-08 07:02] LABS: Glucose,Whole Blood 88 mg/dL (75-99)
[2021-07-08] MEDS: INSULIN ASPART (NovoLOG) 100 UNIT/ML VIAL SQ SCH ×4 (07:37→21:44)
[2021-07-08] MEDS: metroNIDAZOLE 500 MG TAB PO SCH ×3 (07:38→21:47)
[2021-07-08] MEDS: traMADol 50 MG TAB PO SCH ×4 (07:38→22:14)
[2021-07-08] MEDS: PANTOPRAZOLE 40 MG TABLET PO SCH (07:38)
[2021-07-08] MEDS: MEGESTROL 40 MG TAB PO SCH (07:38)
[2021-07-08] MEDS: ENOXAPARIN 40 MG/0.4 ML SYRINGE SQ SCH (07:40)
[2021-07-08 07:57] LABS: African American GFR (CKD) 40 (>60 ml/min/1.73 sqM); Anion Gap 8 mmol/L; Blood Urea Nitrogen 14 mg/dL (9-20); Calcium 7.8 mg/dL (8.4-10.2); Carbon Dioxide 22 mmol/L (22-30); Chloride 106 mmol/L (98-107); Glucose 88 mg/dL (74-99); Non-African American GFR(CKD) 35 (>60 ml/min/1.73 sqM); Sodium 136 mmol/L (137-145)
[2021-07-08] MEDS ORDERED: VANCOMYCIN TROUGH DUE 1 EACH MISC MISCELLANE ONE (08:00)
[2021-07-08 09:31] LABS: HCT 27.4 % (39.6-50.0); MCHC 29.2 g/dL (32.0-37.0); MCV 95.8 fL (80.0-97.0); Mean Platelet Volume 8.9 fL (9.5-12.2); NRBC Per 100 WBC 0 /100 WBCS (0.0-0.0); Platelet Count 384 X 10*3/uL (140-440); RBC 2.86 X 10*6/uL (4.40-5.60); RDW 17.5 % (11.5-14.5); WBC 10.95 X 10*3/uL (4.50-10.00)
[2021-07-08] MEDS: ONDANSETRON 4 MG/2 ML VIAL IVP PRN ×2 (09:45→21:47)
[2021-07-08 11:26] LABS: Glucose,Whole Blood 91 mg/dL (75-99)
--- NOTE | 2021-07-08 11:58 | P.PN ---
Subjective Progress Note Date: 07/08/21 CHIEF COMPLAINT: Drainage from abdominal incision HISTORY OF PRESENT ILLNESS: Patient is status post exploratory laparotomy, small bowel resection, right colectomy with ileostomy for abdominal fascial dehi scence, perforated small bowel and intra-abdominal abscess on 06/21/21. Patient complaining of a stomachache today. He has felt nauseous. No vomiting. Ileostomy is functioning. Poor oral intake. Patient reports ambulating in hallway. Patient has had increase in his kidney functions creatinine is up to 2.27 and Vanco level was elevated. Antibiotics adjusted. Vancomycin discontinued and patient currently on Rocephin. Patient followed by infectious disease. Afebrile. WBC 10.95 hemoglobin 8.0 platelets 384 Patient seen and examined with Dr. steen PHYSICAL EXAM: VITAL SIGNS: Reviewed. GENERAL: Well-developed in no acute distress. HEENT: No sclera icterus. Extraocular movements grossly intact. Moist buccal mucosa. Head is atraumatic, normocephalic. ABDOMEN: Soft. Nondistended. Ileostomy brown stool. ADRIAN drain with 40 ml purulent output. Incision site healthy and pink with some granulation tissue noted NEUROLOGIC: Alert and oriented. Cranial nerves II through XII grossly intact. ASSESSMENT: 1. 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 Ileus resolved 3. Crohn's disease with abscess status post ileocolectomy and washout of p eritoneal abscess on 05/28/2021 4. Generalized weakness 5. Anemia likely dilutional from IV fluids 6. Acute kidney injury PLAN: -Continue IV fluids -Encouraged patient to increase oral intake -Dietitian consulted for 72 hour calorie count -No discharge today due to worsening kidney function -Motrin and vancomycin discontinued due to acute kidney injury -Continue regular diet -Continue local wound care -Continue to monitor hemoglobin -Continue to monitor ADRIAN drain output -Encouraged patient to increase activity -Continue supportive care -Continue antibiotics -Incentive spirometer ordered -Encouraged patient to ambulate -DVT prophylaxis Lovenox and GI prophylaxis Protonix Physician Otolaryngology Teacher note has been reviewed by physician. Signing provider agrees with the documented findings, assessment, and plan of care. Objective - Vital Signs Vital signs: Vital Signs Temp 97.5 F L 07/08/21 07:33 Pulse 76 07/08/21 11:06 Resp 18 07/08/21 08:00 BP 123/82 07/08/21 11:06 Pulse Ox 96 07/08/21 07:33 Intake & Output 07/07/21 07/08/21 07/08/21 18:59 06:59 18:59 Intake Total 900 Output Total 1030 340 Balance -1030 900 -340 Weight 110.7 kg Intake: IV 900 Sodium Chloride 0.9% 1, 900 000 ml @ 100 mls/hr IV . Q10H [facility] Rx#:[id number] Output: Drainage 30 40 Abdomen 30 40 Urine 700 300 Stool 300 Other: Voiding Method Urinal Urinal Urinal - Labs CBC & Chem 7: 07/08/21 07:22 07/08/21 07:22 Labs: Abnormal Lab Results - Last 24 Hours (Table) 07/08/21 07/08/21 07/08/21 Range/Units 07:22 07:22 07:22 WBC 10.95 H (4.50-10.00) X 10*3/uL RBC 2.86 L (4.40-5.60) X 10*6/uL Hgb 8.0 L (13.0-17.0) g/dL Hct 27.4 L (39.6-50.0) % MCHC 29.2 L (32.0-37.0) g/dL RDW 17.5 H (11.5-14.5) % MPV 8.9 L (9.5-12.2) fL Sodium 136 L (137-145) mmol/L Creatinine 2.27 H (0.66-1.25) mg/dL Calcium 7.8 L (8.4-10.2) mg/dL Vancomycin Trough 32.3 H* ug/mL Microbiology - Last 24 Hours (Table) 07/01/21 22:27 Blood Culture - Final Blood No Growth after 144 hours
--- NOTE | 2021-07-08 16:09 | P.PN ---
Subjective Progress Note Date: 07/08/21 Principal diagnosis: Abdominal wound infection Patient is 41 year male with a past medical history significant for Crohn's disease in this patient who recently did have a laparotomy for abdominal abscess, no readmitted to the hospital with abdominal pain and concern for abdominal wound dehiscence and possible infection. Patient was taken to the OR 06/21/2021 patient is status post laparotomy right colectomy and ileostomy and drainage of abdominal abscess, I was asked to reevaluate the patient by the medical team on 07/07/2021 for adjustment of his antibiotic On today's evaluation that is 07/08/2021, the patient remains to be afebrile, the patient denies having any chest pain shortness of breath or cough. The patient is complaining of abdominal pain today however is controlled with the current pain medication, the patient denies nausea no vomiting and did have output in his colostomy bag Objective - Vital Signs Vital signs: Vital Signs Temp 97.5 F L 07/08/21 07:33 Pulse 76 07/08/21 11:06 Resp 18 07/08/21 08:00 BP 123/82 07/08/21 11:06 Pulse Ox 96 07/08/21 07:33 Intake & Output 07/07/21 07/08/21 07/08/21 18:59 06:59 18:59 Intake Total 900 Output Total 1030 380 Balance -1030 900 -380 Weight 110.7 kg Intake: IV 900 Sodium Chloride 0.9% 1, 900 000 ml @ 100 mls/hr IV . Q10H [facility] Rx#:[id number] Output: Drainage 30 80 Abdomen 30 80 Urine 700 300 Stool 300 Other: Voiding Method Urinal Urinal Urinal - Exam GENERAL DESCRIPTION:[ Patient is awake and alert in no distress] HEENT: [Oral mucosa is dry and no pharyngeal erythema] RESPIRATORY SYSTEM: [Unlabored breathing decreased. The base] CARDIA VASCULAR SYSTEM: [S1-S2 regular rate and rhythm no murmur] GI: [Abdominal soft midline abdominal wound dressing has just been changed by the nursing staff mention wound base looks clean with minimal slough tissue, ADRIAN drain did have some purulent drainage EXTREMITIES: [No edema feet] - Labs CBC & Chem 7: 07/08/21 07:22 07/08/21 07:22 Labs: Abnormal Lab Results - Last 24 Hours (Table) 07/08/21 07/08/21 07/08/21 Range/Units 07:22 07:22 07:22 WBC 10.95 H (4.50-10.00) X 10*3/uL RBC 2.86 L (4.40-5.60) X 10*6/uL Hgb 8.0 L (13.0-17.0) g/dL Hct 27.4 L (39.6-50.0) % MCHC 29.2 L (32.0-37.0) g/dL RDW 17.5 H (11.5-14.5) % MPV 8.9 L (9.5-12.2) fL Sodium 136 L (137-145) mmol/L Creatinine 2.27 H (0.66-1.25) mg/dL Calcium 7.8 L (8.4-10.2) mg/dL Vancomycin Trough 32.3 H* ug/mL Microbiology - Last 24 Hours (Table) 07/01/21 22:27 Blood Culture - Final Blood No Growth after 144 hours Assessment and Plan (1) Incisional infection Current Visit: Yes Status: Acute Code(s): T81.49XA - INFECTION FOLLOWING A PROCEDURE, OTHER SURGICAL SITE, INIT SNOMED Code(s): 57200348 Plan: 1-patient admitted to the hospital with abdominal pain with abdominal incision dehiscence and concern for possible deep infection, and this patient who is status post exploratory laparotomy status post right colectomy and small bowel resection ileostomy and drainage of the abscess, no OR cultures were done superficial abdominal cultures showed E. coli and anaerobes, patient is currently afebrile white count is normal to be culture has been negative so far patient to continue with the Rocephin and Flagyl, did have slight worsening of his kidney function vancomycin was discontinued yesterday, patient benefit from gentle IV fluid and close monitoring of his kidney function, patient did have multiple questions were answered in Layman terms Time with Patient: Less than 30
[2021-07-08 16:27] LABS: Glucose,Whole Blood 91 mg/dL (75-99)
--- NOTE | 2021-07-08 16:56 | P.PN ---
Subjective 41-year-old male with history of Crohn's disease and abscess had a ileocolectomy on 05/28/2021 subsequently discharged to [facility] patient rehabitation patient won't cultures during previous hospital physicians showed E. coli and Keke patient to complete the treatment with Augmentin and Diflucan. I did evaluate this patient at [facility] rehabilitation at that time I obtain the cultures as there was concern about new infection in the surgical site area will obtain those cultures, infectious disease evaluated the patient there. Patient was subsequently discharged. came in with the increase the pain and infection of the surgical site area now. Patient had a CT of the abdomen which is concerning for ileus although patient was having normal bowel movements. Patient is hyponatremic. Patient will sugars are highly elevated lower obtain hemoglobin and patient was started on insulin regimen along with sliding scale. Subjective: 07/08/2021 This is a pleasant 41 years old male who presents with surgical site infection with bowel perforation status post exploratory laparotomy and small bowel resection with right colectomy and ileostomy on the right side, patient had significant infection and recurrent word several and prolonged antibiotic therapy. Currently he was on ceftriaxone and Flagyl, vancomycin was already discontinued, however level today was elevated at 32 and there is evidence of trending up creatinine from baseline of 0.7-0.9 up to 1.6 yesterday and 2.27 today. No incidents, no evidence of hypertension, no recent IV contrast and patient is currently on normal saline at 75 mL/h. He had Wheeler catheter previously which was discontinued, discussed with the bedside nurse Hesham to check bladder scan. Court Deputy team were consulted. Several consultants on the case included surgery primary team, infectious disease team. Patient himself is fully awake and oriented looks calm, no distress, no symptoms. No abdominal pain and ileostomy bag is working, however his eating is marginal. Patient encouraged to eat more Objective - Vital Signs Vital signs: Vital Signs Temp 98.1 F 07/08/21 01:42 Pulse 80 07/08/21 01:42 Resp 18 07/08/21 01:42 BP 102/64 07/08/21 01:42 Pulse Ox 96 07/08/21 01:42 Intake & Output 07/07/21 07/08/21 07/08/21 18:59 06:59 18:59 Intake Total 900 Output Total 1030 340 Balance -1030 900 -340 Weight 110.7 kg Intake: IV 900 Sodium Chloride 0.9% 1, 900 000 ml @ 100 mls/hr IV . Q10H [facility] Rx#:[id number] Output: Drainage 30 40 Abdomen 30 40 Urine 700 300 Stool 300 Other: Voiding Method Urinal Urinal - Exam -GENERAL: The patient is alert and oriented x3, not in any acute distress. Obese HEENT: Pupils are round and equally reacting to light. EOMI. No scleral icterus. No conjunctival pallor. Normocephalic, atraumatic. No pharyngeal erythema. No thyromegaly. CARDIOVASCULAR: S1 and S2 present. No murmurs, rubs, or gallops. PULMONARY: Chest is clear to auscultation, no wheezing or crackles. -ABDOMEN: Soft, nontender, nondistended, normoactive bowel sounds. No palpable organomegaly. Midline abdominal wound is healing and dressing is in place. Ri ght lower ileostomy with evidence of stool MUSCULOSKELETAL: No joint swelling or deformity. EXTREMITIES: No cyanosis, clubbing, or pedal edema. NEUROLOGICAL: Gross neurological examination did not reveal any focal deficits. SKIN: No rashes. no petechiae. - Labs CBC & Chem 7: 07/08/21 07:22 07/08/21 07:22 Labs: Abnormal Lab Results - Last 24 Hours (Table) 07/07/21 07/07/21 07/08/21 Range/Units 05:53 05:53 07:22 RBC 2.74 L (4.30-5.90) m/uL Hgb 8.1 L (13.0-17.5) gm/dL Hct 27.4 L (39.0-53.0) % MCHC 29.7 L (31.0-37.0) g/dL RDW 16.6 H (11.5-15.5) % Lymphocytes # 0.8 L (1.0-4.8) k/uL Sodium 134 L 136 L (137-145) mmol/L Carbon Dioxide 21 L (22-30) mmol/L Creatinine 1.66 H 2.27 H (0.66-1.25) mg/dL Calcium 7.8 L 7.8 L (8.4-10.2) mg/dL Vancomycin Trough ug/mL 07/08/21 Range/Units 07:22 RBC (4.30-5.90) m/uL Hgb (13.0-17.5) gm/dL Hct (39.0-53.0) % MCHC (31.0-37.0) g/dL RDW (11.5-15.5) % Lymphocytes # (1.0-4.8) k/uL Sodium (137-145) mmol/L Carbon Dioxide (22-30) mmol/L Creatinine (0.66-1.25) mg/dL Calcium (8.4-10.2) mg/dL Vancomycin Trough 32.3 H* ug/mL Microbiology - Last 24 Hours (Table) 07/01/21 22:27 Blood Culture - Final Blood No Growth after 144 hours Assessment and Plan Assessment: -Bowel perforation had ileus on admission. Status post laparotomy and small bowel resection, right colectomy ileostomy . Patient is presently on ceftriaxone and IV Flagyl. ID team on the case as well as surgery primary team -Acute kidney injury, vancomycin level be contributing. Continue with IV fluid, nephrology consult. Discontinue nephrotoxic substance, overweight hypertension. Check a bladder scan -History of Crohn's disease status post redo colectomy a few weeks ago -Leukocytosis secondary to sepsis, bowel perforation wound cultures are showing E. coli and anaerobic bacteria this is from the surgical wound from his previous surgery improving patient is presently on ceftriaxone and Flagyl DVT prophylaxis: Lovenox GI prophylaxis: Protonix
--- NOTE | 2021-07-08 17:23 | P.NPCON ---
History of Present Illness - Reason for Consult acute renal failure - History of Present Illness Patient is a 41-year-old with history of Crohn's disease and abdominal abscess status post ileocolectomy and washout of peritoneal abscess on 05/28/2021 Patient is admitted to the hospital with complaints of increased drainage from his incision site this was foul-smelling and brownish in color.. Patient was taken for surgery on 06/21/19 224 explorative laparotomy. He had right colectomy and small bowel resection with ileostomy. Wound cultures grew E. coli and anaerobic gram-negative bacilli. Patient was maintained on vancomycin and his level was noted to be elevated at 32.3 on 07/08/2021 Creatinine is 2.27 today and it was at 0.7 on 07/05/2021 patient has had good urine output. Blood pressure is not low No other nephrotoxic agents noted Review of Systems As per HPI Past Medical History Past Medical History: No Reported History Additional Past Medical History / Comment(s): Recently had surgery for chron's with peritoneal abscess, covid + 05/17/21. History of Any Multi-Drug Resistant Organisms: None Reported Past Surgical History: Hernia Repair Additional Past Surgical History / Comment(s): 05/28/21 ileocolectomy with washout pf pertioneal abscess, R inguinal hernia repair. Past Anesthesia/Blood Transfusion Reactions: No Reported Reaction Past Psychological History: No Psychological Hx Reported Smoking Status: Former smoker Past Alcohol Use History: Occasional Past Drug Use History: None Reported - Past Family History Father Family Medical History: No Reported History Additional Family Medical History / Comment(s): Father is healthy Mother Family Medical History: Eye Disorder Additional Family Medical History / Comment(s): Mother has glaucoma Medications and Allergies Home Medications Medication Instructions Recorded Confirmed Type Albuterol Sulfate [Albuterol 2 puff PO RT-Q6H PRN 06/19/21 06/19/21 History Sulfate Hfa] Ascorbic Acid [Vitamin C] 500 mg PO DAILY 06/19/21 06/19/21 History Cephalexin [Keflex] 500 mg PO Q6HR #40 cap 06/19/21 Rx Cholecalciferol [Vitamin D3 (25 50 mcg PO DAILY 06/19/21 06/19/21 History Mcg = 1000 Iu)] Sulfamethoxazole/Trimethoprim 1 each PO BID #20 tablet 06/19/21 Rx [Bactrim DS 800-160 mg] Zinc 50 mg PO DAILY 06/19/21 06/19/21 History traMADol HCl [Ultram] 50 mg PO Q6HR PRN 06/19/21 06/19/21 History Allergies Allergy/AdvReac Type Severity Reaction Status Date / Time acetaminophen [From Tylenol] Allergy Chest Pain Verified 05/25/21 21:37 Physical Exam Vitals: Vital Signs Temp Pulse Pulse Resp BP Pulse Ox 07/08/21 13:10 98.1 F 81 17 126/78 96 07/08/21 11:06 76 123/82 07/08/21 08:00 18 07/08/21 07:33 97.5 F L 82 18 119/77 96 07/08/21 01:42 98.1 F 80 18 102/64 96 07/07/21 19:20 98.1 F 86 16 110/71 96 Intake and Output 07/08/21 07/08/21 07/08/21 06:59 14:59 22:59 Intake Total 900 Output Total 380 100 Balance 900 -380 -100 Intake: IV 900 Sodium Chloride 0.9% 1, 900 000 ml @ 100 mls/hr IV . Q10H [facility] Rx#:[id number] Output: Drainage 80 Abdomen 80 Urine 300 Stool 100 Other: Voiding Method Urinal And is awake comfortable, alert and oriented 3. Examination of the heart S1 and S2 Examination lungs bilateral breath sounds are heard Abdomen is soft with ileostomy currently being dressed No edema noted in the extremities DIRECTOR OF INSTRUMENTAL MUSIC exam grossly intact Results - Lab Results Most recent lab results ABG pH 7.39 (7.35-7.45) 06/22/21 05:23 ABG pCO2 29 mmHg (35-45) L 06/22/21 05:23 ABG pO2 158 mmHg (83-108) H 06/22/21 05:23 ABG HCO3 18 mmol/L (21-25) L 06/22/21 05:23 ABG O2 Saturation 98.4 % (94-97) H 06/22/21 05:23 Calcium 7.8 mg/dL (8.4-10.2) L 07/08/21 07:22 Phosphorus 3.5 mg/dL (2.5-4.5) 06/27/21 05:27 Magnesium 2.3 mg/dL (1.6-2.3) 07/06/21 07:37 02/11/22 07:22 07/08/21 07:22 Assessment and Plan Assessment: 1. Acute kidney injury, nonoliguric secondary to vancomycin toxicity. Van comycin now discontinued. No other nephrotoxic agents noted. 2. Abdominal abscess status post explorative laparotomy with right colectomy and small bowel resection and ileostomy maintained on antibiotics 3. Hyperkalemia on initial admission currently resolved 4. Crohn's disease with intra-abdominal abscess status post redo surgery on 06/23/2021 5. Anemia, no active bleeding noted. Multifactorial including 2 recent surgeries Rule out iron deficiency Plan: Continue IV fluids Avoid any other nephrotoxic agents Avoid hypotension Repeat labs in a.m. Check iron profile
[2021-07-08 21:44] LABS: Glucose,Whole Blood 86 mg/dL (75-99)
[2021-07-08] MEDS: MELATONIN 3 MG TABLET PO SCH (22:04)
[2021-07-09] MEDS: MELATONIN 3 MG TABLET PO SCH ×2 (00:03→21:54)
[2021-07-09] MEDS: SODIUM CHLORIDE 0.9% 1,000 ML IV SCH ×2 (01:54→16:21)
[2021-07-09 07:11] LABS: Glucose,Whole Blood 93 mg/dL (75-99)
[2021-07-09 08:18] LABS: Anisocytosis Slight; Basophils % (A) 0 %; Eosinophils # (A) 0.1 k/uL (0-0.7); Eosinophils % (A) 1 %; HCT 26.4 % (39.0-53.0); HGB 8.1 gm/dL (13.0-17.5); Hypochromasia Marked; Lymphocytes # (A) 0.8 k/uL (1.0-4.8); Lymphocytes % (A) 8 %; MCH 29.9 pg (25.0-35.0); MCHC 30.6 g/dL (31.0-37.0); MCV 97.6 fL (80.0-100.0); Macrocytosis Slight; Mean Platelet Volume 7.4; Monocytes # (A) 0.5 k/uL (0-1.0); Monocytes % (A) 5 %; Neutrophils # (A) 7.6 k/uL (1.3-7.7); Neutrophils % (A) 83 %; Platelet Count 335 k/uL (150-450); RDW 16.4 % (11.5-15.5); WBC 9.2 k/uL (3.8-10.6)
[2021-07-09] MEDS: INSULIN ASPART (NovoLOG) 100 UNIT/ML VIAL SQ SCH ×4 (08:19→20:48)
[2021-07-09] MEDS: metroNIDAZOLE 500 MG TAB PO SCH ×3 (08:28→21:54)
[2021-07-09] MEDS: ENOXAPARIN 40 MG/0.4 ML SYRINGE SQ SCH (08:28)
[2021-07-09] MEDS: PANTOPRAZOLE 40 MG TABLET PO SCH (08:28)
[2021-07-09] MEDS: traMADol 50 MG TAB PO SCH ×4 (08:28→21:54)
[2021-07-09] MEDS: MEGESTROL 40 MG TAB PO SCH (08:29)
[2021-07-09] MEDS: ONDANSETRON 4 MG/2 ML VIAL IVP PRN (08:34)
[2021-07-09 08:37] LABS: African American GFR (CKD) 36 (>60 ml/min/1.73 sqM); Anion Gap 6 mmol/L; Blood Urea Nitrogen 17 mg/dL (9-20); Calcium 7.7 mg/dL (8.4-10.2); Carbon Dioxide 23 mmol/L (22-30); Chloride 105 mmol/L (98-107); Glucose 89 mg/dL (74-99); Non-African American GFR(CKD) 31 (>60 ml/min/1.73 sqM); Sodium 134 mmol/L (137-145)
--- NOTE | 2021-07-09 10:33 | P.PN ---
Progress Note - Text Progress Note Date: 07/09/21 Patient complains of lack of appetite. He states that whenever he eats he has some nausea. He has not been out of bed today. On exam vital signs appear stable. Abdomen soft. Incision is healing. The ileostomy site is functioning well. There is some minimal purulent drainage around the retention suture. Status post exploratory laparotomy for Crohn's disease with anastomotic leak. Patient will continue receive supportive care. His ADRIAN drain is still producing approximately 30 mL of purulent fluid per day. Patient will be encouraged to ambulate. Patient will also be started on TPN due to his lack of appetite
[2021-07-09 11:10] LABS: Glucose,Whole Blood 85 mg/dL (75-99)
[2021-07-09] MEDS: METOCLOPRAMIDE 5 MG/ML 2 ML VIAL IVP PRN (11:30)
--- NOTE | 2021-07-09 11:32 | P.PN ---
Subjective Patient is seen for follow-up for acute kidney injury mostly associated with vancomycin toxicity. Serum creatinine has increased to 2.4 from 2.27 yesterday. Previous creatinine 0.9 on 07/06/2021. Patient has good urine output, 1400 mL noted over 24 hours. He is maintained on IV fluids No significant complaints today. Objective - Vital Signs Vital signs: Vital Signs Temp 97.6 F 07/09/21 07:42 Pulse 82 07/09/21 07:42 Resp 19 07/09/21 07:42 BP 111/72 07/09/21 07:42 Pulse Ox 97 07/09/21 07:42 Intake & Output 07/08/21 07/09/21 07/09/21 18:59 06:59 18:59 Output Total 515 1100 550 Balance -515 -1100 -550 Output: Drainage 80 50 Abdomen 80 50 Urine 300 1100 500 Post Void Residual 35 Stool 100 Other: Voiding Method Urinal Urinal - Exam Patient is awake comfortable, alert oriented 3. Examination of the heart S1 and S2 Examination lungs bilateral breath sounds are heard Abdomen is soft, ileostomy noted, incision is dressed Examination of lower extremities shows no significant edema - Labs CBC & Chem 7: 07/09/21 08:00 07/09/21 08:00 Labs: Abnormal Lab Results - Last 24 Hours (Table) 07/09/21 07/09/21 Range/Units 08:00 08:00 RBC 2.70 L (4.30-5.90) m/uL Hgb 8.1 L (13.0-17.5) gm/dL Hct 26.4 L (39.0-53.0) % MCHC 30.6 L (31.0-37.0) g/dL RDW 16.4 H (11.5-15.5) % Lymphocytes # 0.8 L (1.0-4.8) k/uL Sodium 134 L (137-145) mmol/L Creatinine 2.46 H (0.66-1.25) mg/dL Calcium 7.7 L (8.4-10.2) mg/dL Assessment and Plan Assessment: 1. Acute kidney injury, nonoliguric secondary to vancomycin toxicity. Vancomycin now discontinued. No other nephrotoxic agents noted. 2. Abdominal abscess status post explorative laparotomy with right colectomy and small bowel resection and ileostomy maintained on antibiotics 3. Hyperkalemia on initial admission currently resolved 4. Crohn's disease with intra-abdominal abscess status post redo surgery on 06/23/2021 5. Anemia, no active bleeding noted. Multifactorial including 2 recent surgeries Rule out iron deficiency Plan: Continue IV fluids Avoid any other nephrotoxic agents Avoid hypotension Repeat labs in a.m. Check iron profile
[2021-07-09 16:33] LABS: Glucose,Whole Blood 100 mg/dL (75-99)
--- NOTE | 2021-07-09 17:13 | P.PN ---
Subjective 41-year-old male with history of Crohn's disease and abscess had a ileocolectomy on 05/28/2021 subsequently discharged to [facility] patient rehabitation patient won't cultures during previous hospital physicians showed E. coli and Keke patient to complete the treatment with Augmentin and Diflucan. I did evaluate this patient at [facility] rehabilitation at that time I obtain the cultures as there was concern about new infection in the surgical site area will obtain those cultures, infectious disease evaluated the patient there. Patient was subsequently discharged. came in with the increase the pain and infection of the surgical site area now. Patient had a CT of the abdomen which is concerning for ileus although patient was having normal bowel movements. Patient is hyponatremic. Patient will sugars are highly elevated lower obtain hemoglobin and patient was started on insulin regimen along with sliding scale. Subjective: 07/08/2021 This is a pleasant 41 years old male who presents with surgical site infection with bowel perforation status post exploratory laparotomy and small bowel resection with right colectomy and ileostomy on the right side, patient had significant infection and recurrent word several and prolonged antibiotic therapy. Currently he was on ceftriaxone and Flagyl, vancomycin was already discontinued, however level today was elevated at 32 and there is evidence of trending up creatinine from baseline of 0.7-0.9 up to 1.6 yesterday and 2.27 today. No incidents, no evidence of hypertension, no recent IV contrast and patient is currently on normal saline at 75 mL/h. He had Wheeler catheter previously which was discontinued, discussed with the bedside nurse Hesham to check bladder scan. Fruit [employer] Vegetable Inspector team were consulted. Several consultants on the case included surgery primary team, infectious disease team. Patient himself is fully awake and oriented looks calm, no distress, no symptoms. No abdominal pain and ileostomy bag is working, however his eating is marginal. Patient encouraged to eat more 07/09/2021 Patient clinically looks similar to yesterday, no other new complaints. He still has poor oral and take even to food brought from [facility], PART OF IT IS A DUE TO NAUSEA AND CONTROLLED WITH ZOFRAN. DAILY REGLAN HAS BEEN ADDED NEEDED. ALSO FINANCIAL OPERATIONS CLERK TEAM FOLLOWING HIM CLOSELY FOR HIS ACUTE KIDNEY INJURY SUSPECTED SECONDARY TO VANCOMYCIN TOXICITY currently his IV vancomycin is put on hold and his creatinine is slightly elevated at 2.4 compared to 2.27 yesterday. The patient is making good urine output. Checked bladder scan 35 mL only. Regarding his wound infection is currently covered with ceftriaxone and Flagyl as well as normal saline 75 mL/h. His ileostomy bag is working. No abdominal pain Objective - Vital Signs Vital signs: Vital Signs Temp 97.6 F 07/09/21 07:42 Pulse 82 07/09/21 07:42 Resp 19 07/09/21 07:42 BP 111/72 07/09/21 07:42 Pulse Ox 97 07/09/21 07:42 Intake & Output 07/08/21 07/09/21 07/09/21 18:59 06:59 18:59 Output Total 515 1100 550 Balance -515 -1100 -550 Output: Drainage 80 50 Abdomen 80 50 Urine 300 1100 500 Post Void Residual 35 Stool 100 Other: Voiding Method Urinal Urinal - Exam -GENERAL: The patient is alert and oriented x3, not in any acute distress. Obese HEENT: Pupils are round and equally reacting to light. EOMI. No scleral icterus. No conjunctival pallor. Normocephalic, atraumatic. No pharyngeal erythema. No thyromegaly. CARDIOVASCULAR: S1 and S2 present. No murmurs, rubs, or gallops. PULMONARY: Chest is clear to auscultation, no wheezing or crackles. -ABDOMEN: Soft, nontender, nondistended, normoactive bowel sounds. No palpable organomegaly. Midline abdominal wound is healing and dressing is in place. Right lower ileostomy with evidence of stool MUSCULOSKELETAL: No joint swelling or deformity. EXTREMITIES: No cyanosis, clubbing, or pedal edema. NEUROLOGICAL: Gross neurological examination did not reveal any focal deficits. SKIN: No rashes. no petechiae. - Labs CBC & Chem 7: 07/09/21 08:00 07/09/21 08:00 Labs: Abnormal Lab Results - Last 24 Hours (Table) 07/09/21 07/09/21 Range/Units 08:00 08:00 RBC 2.70 L (4.30-5.90) m/uL Hgb 8.1 L (13.0-17.5) gm/dL Hct 26.4 L (39.0-53.0) % MCHC 30.6 L (31.0-37.0) g/dL RDW 16.4 H (11.5-15.5) % Lymphocytes # 0.8 L (1.0-4.8) k/uL Sodium 134 L (137-145) mmol/L Creatinine 2.46 H (0.66-1.25) mg/dL Calcium 7.7 L (8.4-10.2) mg/dL Assessment and Plan Assessment: -Bowel perforation had ileus on admission. Status post laparotomy and small bowel resection, right colectomy ileostomy . Patient is presently on ceftriaxone and IV Flagyl. ID team on the case as well as surgery primary team. Patient still has poor oral intake secondary to his nausea. Reglan was added today as needed -Acute kidney injury, vancomycin level be contributing. Continue with IV fluid, nephrology consult. Discontinue nephrotoxic substance, -hypertension. -History of Crohn's disease status post redo colectomy a few weeks ago -Leukocytosis , improved DVT prophylaxis: Lovenox GI prophylaxis: Protonix
[2021-07-09 17:32] LABS: % Iron Saturation 11.33 (15.00-50.00)
[2021-07-09 20:41] LABS: Glucose,Whole Blood 101 mg/dL (75-99)
[2021-07-10] MEDS: SODIUM CHLORIDE 0.9% 1,000 ML IV SCH ×2 (05:55→15:20)
[2021-07-10 07:12] LABS: Glucose,Whole Blood 74 mg/dL (75-99)
[2021-07-10 07:27] LABS: Glucose,Whole Blood 75 mg/dL (75-99)
[2021-07-10] MEDS: INSULIN ASPART (NovoLOG) 100 UNIT/ML VIAL SQ SCH ×4 (07:37→20:05)
[2021-07-10 07:45] LABS: Glucose,Whole Blood 87 mg/dL (75-99)
[2021-07-10] MEDS: traMADol 50 MG TAB PO SCH ×4 (07:45→21:45)
[2021-07-10] MEDS: metroNIDAZOLE 500 MG TAB PO SCH ×3 (07:46→21:45)
[2021-07-10] MEDS: ENOXAPARIN 40 MG/0.4 ML SYRINGE SQ SCH (07:46)
[2021-07-10] MEDS: PANTOPRAZOLE 40 MG TABLET PO SCH (07:46)
[2021-07-10] MEDS: MEGESTROL 40 MG TAB PO SCH (07:47)
--- NOTE | 2021-07-10 09:35 | P.PN ---
Subjective Progress Note Date: 07/09/21 Principal diagnosis: Abdominal wound infection Patient is 41 year male with a past medical history significant for Crohn's disease in this patient who recently did have a laparotomy for abdominal abscess, no readmitted to the hospital with abdominal pain and concern for abdominal wound dehiscence and possible infection. Patient was taken to the OR 06/21/2021 patient is status post laparotomy right colectomy and ileostomy and drainage of abdominal abscess, I was asked to reevaluate the patient by the medical team on 07/07/2021 for adjustment of his antibiotic On today's evaluation that is 07/09/2021, the patient continues to be afebrile, the patient denies chest pain shortness of breath or cough. The patient is complaining of abdominal fullness and decreased appetite and some nausea but no vomiting did have output in his ostomy and good urine output Objective - Vital Signs Vital signs: Vital Signs Temp 97.6 F 07/09/21 07:42 Pulse 82 07/09/21 07:42 Resp 19 07/09/21 07:42 BP 111/72 07/09/21 07:42 Pulse Ox 97 07/09/21 07:42 Intake & Output 07/08/21 07/09/21 07/09/21 18:59 06:59 18:59 Output Total 515 1100 550 Balance -515 -1100 -550 Output: Drainage 80 50 Abdomen 80 50 Urine 300 1100 500 Post Void Residual 35 Stool 100 Other: Voiding Method Urinal Urinal - Exam GENERAL DESCRIPTION:[ Patient is awake and alert in no distress] HEENT: [Oral mucosa is dry and no pharyngeal erythema] RESPIRATORY SYSTEM: [Unlabored breathing decreased. The base] CARDIA VASCULAR SYSTEM: [S1-S2 regular rate and rhythm no murmur] GI: [Abdominal soft midline abdominal wound dressing has just been changed by the nursing staff mention wound base looks clean with minimal slough tissue, ADRIAN drain did have some purulent drainage EXTREMITIES: [No edema feet] - Labs CBC & Chem 7: 07/09/21 08:00 07/09/21 08:00 Labs: Abnormal Lab Results - Last 24 Hours (Table) 07/09/21 07/09/21 Range/Units 08:00 08:00 RBC 2.70 L (4.30-5.90) m/uL Hgb 8.1 L (13.0-17.5) gm/dL Hct 26.4 L (39.0-53.0) % MCHC 30.6 L (31.0-37.0) g/dL RDW 16.4 H (11.5-15.5) % Lymphocytes # 0.8 L (1.0-4.8) k/uL Sodium 134 L (137-145) mmol/L Creatinine 2.46 H (0.66-1.25) mg/dL Calcium 7.7 L (8.4-10.2) mg/dL Assessment and Plan (1) Incisional infection Current Visit: Yes Status: Acute Code(s): T81.49XA - INFECTION FOLLOWING A PROCEDURE, OTHER SURGICAL SITE, INIT SNOMED Code(s): 88682575 Plan: 1-patient admitted to the hospital with abdominal pain with abdominal incision dehiscence and concern for possible deep infection, and this patient who is status post exploratory laparotomy status post right colectomy and small bowel r esection ileostomy and drainage of the abscess, no OR cultures were done superficial abdominal cultures showed E. coli and anaerobes, patient is currently afebrile white count is normal to be culture has been negative so far patient is currently being treated with Rocephin and Flagyl, which will be continued and monitor his clinical course closely Time with Patient: Less than 30
[2021-07-10 10:54] LABS: African American GFR (CKD) 37 (>60 ml/min/1.73 sqM); Anion Gap 9 mmol/L; Blood Urea Nitrogen 20 mg/dL (9-20); Calcium 7.7 mg/dL (8.4-10.2); Carbon Dioxide 21 mmol/L (22-30); Chloride 105 mmol/L (98-107); Glucose 92 mg/dL (74-99); Non-African American GFR(CKD) 32 (>60 ml/min/1.73 sqM); Sodium 135 mmol/L (137-145)
[2021-07-10 11:35] LABS: Glucose,Whole Blood 83 mg/dL (75-99)
--- NOTE | 2021-07-10 11:35 | P.PN ---
Subjective Patient is seen for follow-up for acute kidney injury mostly associated with vancomycin toxicity. Serum creatinine is staying at 2.4 mg/dL Previous creatinine 0.9 on 07/06/2021. Patient has good urine output, 1400 mL noted over 24 hours. He is maintained on IV fluids No significant complaints today. Objective - Vital Signs Vital signs: Vital Signs Temp 97.6 F 07/10/21 07:41 Pulse 77 07/10/21 07:41 Resp 16 07/10/21 09:10 BP 120/82 07/10/21 07:41 Pulse Ox 83 L 07/10/21 07:41 Intake & Output 07/09/21 07/10/21 07/10/21 18:59 06:59 18:59 Intake Total 1080 Output Total 1235 1075 Balance -1235 -1075 1080 Intake: Oral 1080 Output: Drainage 110 Abdomen 110 Urine 1125 850 Stool 225 Other: Voiding Method Urinal Urinal - Exam Patient is awake comfortable, alert oriented 3. Examination of the heart S1 and S2 Examination lungs bilateral breath sounds are heard Abdomen is soft, ileostomy noted, incision is dressed Examination of lower extremities shows no significant edema - Labs CBC & Chem 7: 07/09/21 08:00 07/10/21 10:18 Labs: Abnormal Lab Results - Last 24 Hours (Table) 07/09/21 07/09/21 07/09/21 Range/Units 08:00 16:31 20:40 Sodium (137-145) mmol/L Carbon Dioxide (22-30) mmol/L Creatinine (0.66-1.25) mg/dL POC Glucose (mg/dL) 100 H 101 H (75-99) mg/dL Calcium (8.4-10.2) mg/dL Iron 14 L (65-175) ug/dL TIBC 119 L (228-460) ug/dL % Saturation 11.33 L (15.00-50.00) Transferrin 85.1 L (204.0-354.0) mg/dL 07/10/21 07/10/21 Range/Units 07:08 10:18 Sodium 135 L (137-145) mmol/L Carbon Dioxide 21 L (22-30) mmol/L Creatinine 2.42 H (0.66-1.25) mg/dL POC Glucose (mg/dL) 74 L (75-99) mg/dL Calcium 7.7 L (8.4-10.2) mg/dL Iron (65-175) ug/dL TIBC (228-460) ug/dL % Saturation (15.00-50.00) Transferrin (204.0-354.0) mg/dL Assessment and Plan Assessment: 1. Acute kidney injury, nonoliguric secondary to vancomycin toxicity. Vancomycin now discontinued. No other nephrotoxic agents noted. 2. Abdominal abscess status post explorative laparotomy with right colectomy and small bowel resection and ileostomy maintained on antibiotics 3. Hyperkalemia on initial admission currently resolved 4. Crohn's disease with intra-abdominal abscess status post redo surgery on 06/23/2021 5. Anemia, no active bleeding noted. Multifactorial including 2 recent surgeries Rule out iron deficiency Plan: Continue IV fluids Avoid any other nephrotoxic agents Avoid hypotension Repeat labs in a.m. Check iron profile
--- NOTE | 2021-07-10 12:09 | P.PN ---
Progress Note - Text Progress Note Date: 07/10/21 Patient states he feels better. He actually has some more appetite today. He has been drinking his. Gatorade. On exam vital signs are stable. Abdomen soft. Incision is healing. ADRIAN drain has had decreased output of purulent fluid. History of exploratory laparotomy for Crohn's disease and subsequent wound dehiscence. Patient's abscess output has had significant decrease. He'll continue receive IV antibiotics.
--- NOTE | 2021-07-10 14:57 | P.PN ---
Subjective 41-year-old male with history of Crohn's disease and abscess had a ileocolectomy on 05/28/2021 subsequently discharged [address] [facility] patient rehabitation patient won't cultures during previous hospital physicians showed E. coli and Keke patient to complete the treatment with Augmentin and Diflucan. I did evaluate this patient at [facility] rehabilitation at that time I obtain the cultures as there was concern about new infection in the surgical site area will obtain those cultures, infectious disease evaluated the patient there. Patient was subsequently discharged. came in with the increase the pain and infection of the surgical site area now. Patient had a CT of the abdomen which is concerning for ileus although patient was having normal bowel movements. Patient is hyponatremic. Patient will sugars are highly elevated lower obtain hemoglobin and patient was started on insulin regimen along with sliding scale. Subjective: 07/08/2021 This is a pleasant 41 years old male who presents with surgical site infection with bowel perforation status post exploratory laparotomy and small bowel resection with right colectomy and ileostomy on the right side, patient had significant infection and recurrent word several and prolonged antibiotic therapy. Currently he was on ceftriaxone and Flagyl, vancomycin was already discontinued, however level today was elevated at 32 and there is evidence of trending up creatinine from baseline of 0.7-0.9 up to 1.6 yesterday and 2.27 today. No incidents, no evidence of hypertension, no recent IV contrast and patient is currently on normal saline at 75 mL/h. He had Wheeler catheter previously which was discontinued, discussed with the bedside nurse Hesham to check bladder scan. Environmental Sampling Technician team were consulted. Several consultants on the case included surgery primary team, infectious disease team. Patient himself is fully awake and oriented looks calm, no distress, no symptoms. No abdominal pain and ileostomy bag is working, however his eating is marginal. Patient encouraged to eat more 07/09/2021 Patient clinically looks similar to yesterday, no other new complaints. He still has poor oral and take even to food brought from THE [facility]OS[facility], PART OF IT IS A DUE TO NAUSEA AND CONTROLLED WITH ZOFRAN. DAILY REGLAN HAS BEEN ADDED NEEDED. ALSO TRAVEL JOURNALIST TEAM FOLLOWING HIM CLOSELY FOR HIS ACUTE KIDNEY INJURY SUSPECTED SECONDARY TO VANCOMYCIN TOXICITY currently his IV vancomycin is put on hold and his creatinine is slightly elevated at 2.4 compared to 2.27 yesterday. The patient is making good urine output. Checked bladder scan 35 mL only. Regarding his wound infection is currently covered with ceftriaxone and Flagyl as well as normal saline 75 mL/h. His ileostomy bag is working. No abdominal pain 07/09/2021 Patient is still with poor appetite, no nausea contributing to his low appetite today. I discussed with him and bedside nurse to try soft diet and he agrees. Vitals stable. Creatinine is stable 2.4-like yesterday secondary to vancomycin toxicity. Patient continued currently normal saline 75 mL/h Also continued with ceftriaxone and Flagyl for his infected wound area. Objective - Vital Signs Vital signs: Vital Signs Temp 97.6 F 07/10/21 07:41 Pulse 77 07/10/21 07:41 Resp 16 07/10/21 09:10 BP 120/82 07/10/21 07:41 Pulse Ox 83 L 07/10/21 07:41 Intake & Output 07/09/21 07/10/21 07/10/21 18:59 06:59 18:59 Intake Total 1080 Output Total 1235 1075 Balance -1235 -1075 1080 Intake: Oral 1080 Output: Drainage 110 Abdomen 110 Urine 1125 850 Stool 225 Other: Voiding Method Urinal Urinal - Exam -GENERAL: The patient is alert and oriented x3, not in any acute distress. Obese HEENT: Pupils are round and equally reacting to light. EOMI. No scleral icterus. No conjunctival pallor. Normocephalic, atraumatic. No pharyngeal erythema. No thyromegaly. CARDIOVASCULAR: S1 and S2 present. No murmurs, rubs, or gallops. PULMONARY: Chest is clear to auscultation, no wheezing or crackles. -ABDOMEN: Soft, nontender, nondistended, normoactive bowel sounds. No palpable organomegaly. Midline abdominal wound is healing and dressing is in place. Right lower ileostomy with evidence of stool MUSCULOSKELETAL: No joint swelling or deformity. EXTREMITIES: No cyanosis, clubbing, or pedal edema. NEUROLOGICAL: Gross neurological examination did not reveal any focal deficits. SKIN: No rashes. no petechiae. - Labs CBC & Chem 7: 07/09/21 08:00 07/10/21 10:18 Labs: Abnormal Lab Results - Last 24 Hours (Table) 07/09/21 07/09/21 07/09/21 Range/Units 08:00 16:31 20:40 POC Glucose (mg/dL) 100 H 101 H (75-99) mg/dL Iron 14 L (65-175) ug/dL TIBC 119 L (228-460) ug/dL % Saturation 11.33 L (15.00-50.00) Transferrin 85.1 L (204.0-354.0) mg/dL 07/10/21 Range/Units 07:08 POC Glucose (mg/dL) 74 L (75-99) mg/dL Iron (65-175) ug/dL TIBC (228-460) ug/dL % Saturation (15.00-50.00) Transferrin (204.0-354.0) mg/dL Assessment and Plan Assessment: -Bowel perforation had ileus on admission. Status post laparotomy and small bowel resection, right colectomy ileostomy . Patient is presently on ceftriaxone and IV Flagyl. ID team on the case as well as surgery primary team. Patient still has poor oral intake secondary to his nausea. Reglan was added today as needed -Acute kidney injury, vancomycin level be contributing. Continue with IV fluid, nephrology consult. Discontinue nephrotoxic substance, -hypertension. -History of Crohn's disease status post redo colectomy a few weeks ago -Leukocytosis , improved DVT prophylaxis: Lovenox GI prophylaxis: Protonix
[2021-07-10 16:45] LABS: Glucose,Whole Blood 91 mg/dL (75-99)
[2021-07-10] MEDS: ONDANSETRON 4 MG/2 ML VIAL IVP PRN (16:45)
[2021-07-10] MEDS: METOCLOPRAMIDE 5 MG/ML 2 ML VIAL IVP PRN (18:07)
[2021-07-10 19:54] LABS: Glucose,Whole Blood 107 mg/dL (75-99)
--- NOTE | 2021-07-10 21:10 | P.PN ---
Subjective Progress Note Date: 07/10/21 Principal diagnosis: Abdominal wound infection Patient is 41 year male with a past medical history significant for Crohn's disease in this patient who recently did have a laparotomy for abdominal abscess, no readmitted to the hospital with abdominal pain and concern for abdominal wound dehiscence and possible infection. Patient was taken to the OR 06/21/2021 patient is status post laparotomy right colectomy and ileostomy and drainage of abdominal abscess, I was asked to reevaluate the patient by the medical team on 07/07/2021 for adjustment of his antibiotic On today's evaluation that is 07/10/2021, the patient remains to be afebrile, the patient denies chest pain shortness of breath or cough. The patient is feeling better today, pain is better controlled no nausea or vomiting no abdominal distention or pain and has been tolerating his diet Objective - Vital Signs Vital signs: Vital Signs Temp 98.1 F 07/10/21 14:00 Pulse 81 07/10/21 14:00 Resp 17 07/10/21 14:00 BP 122/84 07/10/21 14:00 Pulse Ox 96 07/10/21 14:00 Intake & Output 07/09/21 07/10/21 07/10/21 18:59 06:59 18:59 Intake Total 1080 Output Total 1235 1075 1150 Balance -1235 -1075 -70 Intake: Oral 1080 Output: Drainage 110 Abdomen 110 Urine 1125 850 900 Stool 225 250 Other: Voiding Method Urinal Urinal - Exam GENERAL DESCRIPTION:[ Patient is awake and alert in no distress] HEENT: [Oral mucosa is dry and no pharyngeal erythema] RESPIRATORY SYSTEM: [Unlabored breathing decreased. The base] CARDIA VASCULAR SYSTEM: [S1-S2 regular rate and rhythm no murmur] GI: [Abdominal soft midline abdominal wound dressing has just been changed by the nursing staff mention wound base looks clean with minimal slough tissue, ADRIAN drain did have some purulent drainage EXTREMITIES: [No edema feet] - Labs CBC & Chem 7: 07/09/21 08:00 07/10/21 10:18 Labs: Abnormal Lab Results - Last 24 Hours (Table) 07/09/21 07/09/21 07/09/21 Range/Units 08:00 16:31 20:40 Sodium (137-145) mmol/L Carbon Dioxide (22-30) mmol/L Creatinine (0.66-1.25) mg/dL POC Glucose (mg/dL) 100 H 101 H (75-99) mg/dL Calcium (8.4-10.2) mg/dL Iron 14 L (65-175) ug/dL TIBC 119 L (228-460) ug/dL % Saturation 11.33 L (15.00-50.00) Transferrin 85.1 L (204.0-354.0) mg/dL 07/10/21 07/10/21 Range/Units 07:08 10:18 Sodium 135 L (137-145) mmol/L Carbon Dioxide 21 L (22-30) mmol/L Creatinine 2.42 H (0.66-1.25) mg/dL POC Glucose (mg/dL) 74 L (75-99) mg/dL Calcium 7.7 L (8.4-10.2) mg/dL Iron (65-175) ug/dL TIBC (228-460) ug/dL % Saturation (15.00-50.00) Transferrin (204.0-354.0) mg/dL Assessment and Plan (1) Incisional infection Current Visit: Yes Status: Acute Code(s): T81.49XA - INFECTION FOLLOWING A PROCEDURE, OTHER SURGICAL SITE, INIT SNOMED Code(s): 11581528 Plan: 1-patient admitted to the hospital with abdominal pain with abdominal incision dehiscence and concern for possible deep infection, and this patient who is status post exploratory laparotomy status post right colectomy and small bowel resection ileostomy and drainage of the abscess, no OR cultures were done superficial abdominal cultures showed E. coli and anaerobes, patient is currently afebrile white count is normal, blood culture has been negative so far patient to continue with Rocephin and Flagyl, and monitor his clinical course closely Time with Patient: Less than 30
[2021-07-10] MEDS: MELATONIN 3 MG TABLET PO SCH (21:45)
[2021-07-11 06:44] LABS: Glucose,Whole Blood 88 mg/dL (75-99)
[2021-07-11] MEDS: INSULIN ASPART (NovoLOG) 100 UNIT/ML VIAL SQ SCH ×4 (06:52→21:13)
[2021-07-11 08:36] LABS: Anisocytosis Slight; Basophils # (A) 0.1 k/uL (0-0.2); Basophils % (A) 1 %; Eosinophils # (A) 0.1 k/uL (0-0.7); Eosinophils % (A) 2 %; HCT 26.5 % (39.0-53.0); HGB 7.9 gm/dL (13.0-17.5); Hypochromasia Marked; Lymphocytes # (A) 0.6 k/uL (1.0-4.8); Lymphocytes % (A) 9 %; MCV 96.9 fL (80.0-100.0); Mean Platelet Volume 7.7; Monocytes # (A) 0.8 k/uL (0-1.0); Monocytes % (A) 11 %; Neutrophils # (A) 5.4 k/uL (1.3-7.7); Neutrophils % (A) 76 %; Platelet Count 378 k/uL (150-450); RBC 2.73 m/uL (4.30-5.90); WBC 7.1 k/uL (3.8-10.6)
[2021-07-11 09:09] LABS: African American GFR (CKD) 35.6 (60.0-200.0); Anion Gap 11.9 mmol/L (10.00-18.00); BUN/Creat Ratio 7.44 Ratio (12.00-20.00); Blood Urea Nitrogen 18.6 mg/dL (9.0-27.0); Calcium 7.8 mg/dL (8.7-10.3); Carbon Dioxide 20.1 mmol/L (20.0-27.5); Non-African American GFR(CKD) 30.7 (60.0-200.0); Potassium 4.1 mmol/L (3.5-5.5)
--- NOTE | 2021-07-11 10:01 | P.PN ---
Subjective Patient is seen in follow-up for acute kidney injury. Renal function stable. No pain. Oral intake fair. Vital signs are stable. General: The patient appeared well nourished and normally developed. HEENT: Head exam is unremarkable. LUNGS: Breath sounds decreased. HEART: Rate and Rhythm are regular. ABDOMEN: Nontender. No distention. EXTREMITITES: No edema. Objective - Vital Signs Vital signs: Vital Signs Temp 97.9 F 07/11/21 05:33 Pulse 75 07/11/21 07:05 Resp 16 07/11/21 07:05 BP 117/79 07/11/21 05:33 Pulse Ox 97 07/11/21 05:33 Intake & Output 07/10/21 07/11/21 07/11/21 18:59 06:59 18:59 Intake Total 1280 Output Total 1550 1750 350 Balance -270 -1750 -350 Intake: Oral 1280 Output: Urine 1300 1500 200 Stool 250 250 150 Other: Voiding Method Urinal Urinal - Labs CBC & Chem 7: 07/11/21 06:46 07/11/21 06:46 Labs: Abnormal Lab Results - Last 24 Hours (Table) 07/10/21 07/10/21 07/11/21 Range/Units 10:18 19:53 06:46 RBC (4.30-5.90) m/uL Hgb (13.0-17.5) gm/dL Hct (39.0-53.0) % MCHC (31.0-37.0) g/dL RDW (11.5-15.5) % Lymphocytes # (1.0-4.8) k/uL Sodium 135 L 134 L (137-145) mmol/L Carbon Dioxide 21 L (22-30) mmol/L Creatinine 2.42 H 2.5 H (0.66-1.25) mg/dL Est GFR (CKD-EPI)AfAm 35.6 L (60.0-200.0) Est GFR (CKD-EPI)NonAf 30.7 L (60.0-200.0) BUN/Creatinine Ratio 7.44 L (12.00-20.00) Ratio POC Glucose (mg/dL) 107 H (75-99) mg/dL Calcium 7.7 L 7.8 L (8.4-10.2) mg/dL 07/11/21 Range/Units 06:46 RBC 2.73 L (4.30-5.90) m/uL Hgb 7.9 L (13.0-17.5) gm/dL Hct 26.5 L (39.0-53.0) % MCHC 30.0 L (31.0-37.0) g/dL RDW 16.0 H (11.5-15.5) % Lymphocytes # 0.6 L (1.0-4.8) k/uL Sodium (137-145) mmol/L Carbon Dioxide (22-30) mmol/L Creatinine (0.66-1.25) mg/dL Est GFR (CKD-EPI)AfAm (60.0-200.0) Est GFR (CKD-EPI)NonAf (60.0-200.0) BUN/Creatinine Ratio (12.00-20.00) Ratio POC Glucose (mg/dL) (75-99) mg/dL Calcium (8.4-10.2) mg/dL Assessment and Plan Plan: Assessment: 1. Acute kidney injury secondary to nephrotoxic ATN from vancomycin toxicity. Creatinine 2.5 today. UA benign. 2. Abdominal abscess status post exploratory laparotomy with right colectomy and small bowel resection and ileostomy no hydronephrosis noted on CAT scan.. On antibiotics. 3. Hyperkalemia secondary to acute kidney injury. Resolved. 4. Crohn's disease. 5. Anemia. Iron deficiency noted. Plan: Maintain IV fluids. Hold off on IV iron due to abdominal infection. Continue to monitor renal function and urine output. Avoid nephrotoxins.
[2021-07-11] MEDS: metroNIDAZOLE 500 MG TAB PO SCH ×3 (10:58→21:13)
[2021-07-11] MEDS: traMADol 50 MG TAB PO SCH ×3 (10:59→21:15)
[2021-07-11] MEDS: PANTOPRAZOLE 40 MG TABLET PO SCH (10:59)
[2021-07-11] MEDS: MEGESTROL 40 MG TAB PO SCH (10:59)
[2021-07-11] MEDS: ENOXAPARIN 40 MG/0.4 ML SYRINGE SQ SCH (10:59)
[2021-07-11 11:15] LABS: Glucose,Whole Blood 83 mg/dL (75-99)
--- NOTE | 2021-07-11 13:06 | P.PN ---
Subjective Progress Note Date: 07/11/21 CHIEF COMPLAINT: Drainage from abdominal incision HISTORY OF PRESENT ILLNESS: Patient is status post exploratory laparotomy, small bowel resection, right colectomy with ileostomy for abdominal fascial dehi scence, perforated small bowel and intra-abdominal abscess on 06/21/21. Patient lying in bed comfortably. Reports his pain is controlled. His ostomy is functioning. Still having poor oral intake. Undergoing a 72 hour calorie count. He is scheduled to have TPN restarted today. Patient has had decreased drainage from his ADRIAN drain. Afebrile. WBC 7.1 hemoglobin 7.9 platelets 378 sodium 134 potassium 4.1 creatinine 2.5. Nephrology following patient's acute kidney injury. Patient seen and examined with Dr. steen PHYSICAL EXAM: VITAL SIGNS: Reviewed. GENERAL: Well-developed in no acute distress. HEENT: No sclera icterus. Extraocular movements grossly intact. Moist buccal mucosa. Head is atraumatic, normocephalic. ABDOMEN: Soft. Nondistended. Ileostomy brown stool. ADRIAN drain 20ml purulent output. Incisional dressing clean dry and intact. NEUROLOGIC: Alert and oriented. Cranial nerves II through XII grossly intact. ASSESSMENT: 1. 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 Ileus resolved 3. Crohn's disease with abscess status post ileocolectomy and washout of peritoneal abscess on 05/28/2021 4. Generalized weakness 5. Anemia likely dilutional from IV fluids 6. Acute kidney injury PLAN: -Start TPN for nutrition support -Continue IV fluids -Encouraged patient to increase oral intake -Continue regular diet -Continue local wound care -Continue to monitor hemoglobin -Continue to monitor ADRIAN drain output -Encouraged patient to increase activity -Continue supportive care -Continue antibiotics -Incentive spirometer ordered -Encouraged patient to ambulate -DVT prophylaxis Lovenox and GI prophylaxis Protonix Physician Labor Relations Manager note has been reviewed by physician. Signing provider agrees with the documented findings, assessment, and plan of care. Objective - Vital Signs Vital signs: Vital Signs Temp 97.9 F 07/11/21 05:33 Pulse 75 07/11/21 07:05 Resp 16 07/11/21 07:05 BP 117/79 07/11/21 05:33 Pulse Ox 97 07/11/21 05:33 Intake & Output 07/10/21 07/11/21 07/11/21 18:59 06:59 18:59 Intake Total 1280 Output Total 1550 1750 350 Balance -270 -1750 -350 Intake: Oral 1280 Output: Urine 1300 1500 200 Stool 250 250 150 Other: Voiding Method Urinal Urinal - Labs CBC & Chem 7: 07/11/21 06:46 07/11/21 06:46 Labs: Abnormal Lab Results - Last 24 Hours (Table) 07/10/21 07/11/21 07/11/21 Range/Units 19:53 06:46 06:46 RBC 2.73 L (4.30-5.90) m/uL Hgb 7.9 L (13.0-17.5) gm/dL Hct 26.5 L (39.0-53.0) % MCHC 30.0 L (31.0-37.0) g/dL RDW 16.0 H (11.5-15.5) % Lymphocytes # 0.6 L (1.0-4.8) k/uL Sodium 134 L (135-145) mmol/L Creatinine 2.5 H (0.6-1.5) mg/dL Est GFR (CKD-EPI)AfAm 35.6 L (60.0-200.0) Est GFR (CKD-EPI)NonAf 30.7 L (60.0-200.0) BUN/Creatinine Ratio 7.44 L (12.00-20.00) Ratio POC Glucose (mg/dL) 107 H (75-99) mg/dL Calcium 7.8 L (8.7-10.3) mg/dL
[2021-07-11 14:50] LABS: Magnesium 1.8 mg/dL (1.5-2.4); Phosphorus 5.1 mg/dL (2.4-5.1)
[2021-07-11] MEDS: METOCLOPRAMIDE 5 MG/ML 2 ML VIAL IVP PRN (15:20)
[2021-07-11] MEDS: SODIUM CHLORIDE 0.9% 1,000 ML IV SCH ×2 (15:20→22:17)
[2021-07-11] MEDS ORDERED: MVI, ADULT NO.4 WITH VIT K 10 ML, TRACE (CONC-1ML/DOSE) 1 ML in AMINO ACID 5%-D20W+LYTE... IV SCH ×3 (16:00)
[2021-07-11] MEDS ORDERED: MVI, ADULT NO.4 WITH VIT K 10 ML, TRACE (CONC-1ML/DOSE) 1 ML, SODIUM PHOSPHATE 15 MMOL,... IV SCH ×5 (16:00)
[2021-07-11 16:21] LABS: Glucose,Whole Blood 94 mg/dL (75-99)
[2021-07-11 20:23] LABS: Glucose,Whole Blood 79 mg/dL (75-99)
[2021-07-11] MEDS: MELATONIN 3 MG TABLET PO SCH (21:13)
--- NOTE | 2021-07-11 22:57 | P.PN ---
Subjective Progress Note Date: 07/11/21 Principal diagnosis: Abdominal wound infection Patient is 41 year male with a past medical history significant for Crohn's disease in this patient who recently did have a laparotomy for abdominal abscess, no readmitted to the hospital with abdominal pain and concern for abdominal wound dehiscence and possible infection. Patient was taken to the OR 06/21/2021 patient is status post laparotomy right colectomy and ileostomy and drainage of abdominal abscess, I was asked to reevaluate the patient by the medical team on 07/07/2021 for adjustment of his antibiotic On today's evaluation that is 07/11/2021, the patient denies any fever or any chills, the patient denies chest pain shortness of breath or cough. The patient is feeling better , the patient pain is better controlled no nausea or vomiting no abdominal distention or pain and has been tolerating his diet Objective - Vital Signs Vital signs: Vital Signs Temp 97.9 F 07/11/21 05:33 Pulse 75 07/11/21 07:05 Resp 16 07/11/21 07:05 BP 117/79 07/11/21 05:33 Pulse Ox 97 07/11/21 05:33 Intake & Output 07/10/21 07/11/21 07/11/21 18:59 06:59 18:59 Intake Total 1280 Output Total 1550 1750 350 Balance -270 -1750 -350 Intake: Oral 1280 Output: Urine 1300 1500 200 Stool 250 250 150 Other: Voiding Method Urinal Urinal - Exam GENERAL DESCRIPTION:[ Patient is awake and alert in no distress] HEENT: [Oral mucosa is dry and no pharyngeal erythema] RESPIRATORY SYSTEM: [Unlabored breathing decreased. The base] CARDIA VASCULAR SYSTEM: [S1-S2 regular rate and rhythm no murmur] GI: [Abdominal soft midline abdominal wound dressing is intact, ADRIAN drain did have some purulent drainage EXTREMITIES: [No edema feet] - Labs CBC & Chem 7: 07/11/21 06:46 07/11/21 06:46 Labs: Abnormal Lab Results - Last 24 Hours (Table) 07/10/21 07/11/21 07/11/21 Range/Units 19:53 06:46 06:46 RBC 2.73 L (4.30-5.90) m/uL Hgb 7.9 L (13.0-17.5) gm/dL Hct 26.5 L (39.0-53.0) % MCHC 30.0 L (31.0-37.0) g/dL RDW 16.0 H (11.5-15.5) % Lymphocytes # 0.6 L (1.0-4.8) k/uL Sodium 134 L (135-145) mmol/L Creatinine 2.5 H (0.6-1.5) mg/dL Est GFR (CKD-EPI)AfAm 35.6 L (60.0-200.0) Est GFR (CKD-EPI)NonAf 30.7 L (60.0-200.0) BUN/Creatinine Ratio 7.44 L (12.00-20.00) Ratio POC Glucose (mg/dL) 107 H (75-99) mg/dL Calcium 7.8 L (8.7-10.3) mg/dL Assessment and Plan (1) Incisional infection Current Visit: Yes Status: Acute Code(s): T81.49XA - INFECTION FOLLOWING A PROCEDURE, OTHER SURGICAL SITE, INIT SNOMED Code(s): 77210301 Plan: 1-patient admitted to the hospital with abdominal pain with abdominal incision dehiscence and concern for possible deep infection, and this patient who is status post exploratory laparotomy status post right colectomy and small bowel resection ileostomy and drainage of the abscess, no OR cultures were done superficial abdominal cultures showed E. coli and anaerobes, patient is currently afebrile white count is normal, blood culture has been negative, patient is currently being treated with Rocephin and Flagyl, and monitor his clinical course closely Time with Patient: Less than 30
--- NOTE | 2021-07-11 23:03 | XR ---
EXAMINATION TYPE: XR chest 1V portable DATE OF EXAM: 07/11/2021 COMPARISON: 06/25/2021 HISTORY: PICC line placement TECHNIQUE: Single view FINDINGS: Heart and mediastinum are normal. Lungs are clear. Diaphragm is normal. Bony thorax appears normal. IMPRESSION: No cardiopulmonary disease.. There is slight improved inspiration compared to last exam. There is clearing of the atelectasis left lower lobe compared to old exam.
--- NOTE | 2021-07-12 02:12 | P.PN ---
Subjective Progress Note Date: 07/11/21 41-year-old male with history of Crohn's disease and abscess had a ileocolectomy on 05/28/2021 subsequently discharged to [facility] patient rehabitation patient won't cultures during previous hospital physicians showed E. coli and Keke patient to complete the treatment with Augmentin and Diflucan. I did evaluate this patient at [facility] inpatient rehabilitation at that time I obtain the cultures as there was concern about new infection in the surgical site area will obtain those cultures, infectious disease evaluated the patient there. Patient was subsequently discharged. came in with the increase the pain and infection of the surgical site area now. Patient had a CT of the abdomen which is concerning for ileus although patient was having normal bowel movements. Patient is hyponatremic. Patient will sugars are highly elevated lower obtain hemoglobin and patient was started on insulin regimen along with sliding scale. Subjective: 07/08/2021 This is a pleasant 41 years old male who presents with surgical site infection with bowel perforation status post exploratory laparotomy and small bowel resection with right colectomy and ileostomy on the right side, patient had si gnificant infection and recurrent word several and prolonged antibiotic therapy. Currently he was on ceftriaxone and Flagyl, vancomycin was already discontinued, however level today was elevated at 32 and there is evidence of trending up creatinine from baseline of 0.7-0.9 up to 1.6 yesterday and 2.27 today. No incidents, no evidence of hypertension, no recent IV contrast and patient is currently on normal saline at 75 mL/h. He had Wheeler catheter previously which was discontinued, discussed with the bedside nurse Hesham to check bladder scan. Machine Operator Transplanter team were consulted. Several consultants on the case included surgery primary team, infectious disease team. Patient himself is fully awake and oriented looks calm, no distress, no symptoms. No abdominal pain and ileostomy bag is working, however his eating is marginal. Patient encouraged to eat more 07/09/2021 Patient clinically looks similar to yesterday, no other new complaints. He still has poor oral and take even to food brought from THE [facility], PART OF IT IS A DUE TO NAUSEA AND CONTROLLED WITH ZOFRAN. DAILY REGLAN HAS BEEN ADDED NEEDED. ALSO QUALITY ASSISTANT TEAM FOLLOWING HIM CLOSELY FOR HIS ACUTE KIDNEY INJURY SUSP ECTED SECONDARY TO VANCOMYCIN TOXICITY currently his IV vancomycin is put on hold and his creatinine is slightly elevated at 2.4 compared to 2.27 yesterday. The patient is making good urine output. Checked bladder scan 35 mL only. Regarding his wound infection is currently covered with ceftriaxone and Flagyl as well as normal saline 75 mL/h. His ileostomy bag is working. No abdominal pain 07/10/2021 Patient is still with poor appetite, no nausea contributing to his low appetite today. I discussed with him and bedside nurse to try soft diet and he agrees. Vitals stable. Creatinine is stable 2.4-like yesterday secondary to vancomycin toxicity. Patient continued currently normal saline 75 mL/h Also continued with ceftriaxone and Flagyl for his infected wound area. 07/11/2021 Patient is seen in follow up today and patient continues on IV antibiotics in the form of rocephin and flagyl with infectious disease following closely. Multiple medical consultations following. Nephrology following as renal functions continue to be elevated. Patient with continued poor oral intake and surgery planning TPN. Patient has a PICC. No reports of chest pain or palpitations. Patient denies shortness of breath. Patient is afebrile. Labs: WBC is 7.1, hgb is 7.9, platelets are 378, sodiumis 134, potassium is 4.1, bun is 18.6, creatinine is 2.5, calcium is 7.8, mag is 1.8 Active Medications Albuterol Sulfate (Albuterol Nebulized 2.5 Mg/3 Ml) 2.5 mg INHALATION RT-Q6H PRN PRN Reason: Shortness Of Breath Enoxaparin Sodium (Enoxaparin 40 Mg/0.4 Ml Syringe) 40 mg SQ DAILY [facility] Last Admin: 07/11/21 10:59 Dose: 40 mg Documented by: Hydromorphone HCl (Hydromorphone 1 Mg/Ml 1 Ml Syringe) 1 mg IVP Q4HR PRN PRN Reason: Severe Pain Last Admin: 07/05/21 14:15 Dose: 1 mg Documented by: Sodium Chloride (Saline 0.9%) 1,000 mls @ 75 mls/hr IV .[id number] [facility] Last Admin: 07/11/21 22:17 Dose: Not Given Documented by: Ceftriaxone Sodium 2 gm/ (Sodium Chloride) 50 mls @ 100 mls/hr IVPB Q24HR [facility] Last Admin: 07/11/21 11:04 Dose: 100 mls/hr Documented by: Fat Emulsion Intravenous 500 (ml/ IV Solution) 500 mls @ 42 mls/hr IV Tu [facility] Parenteral Vitamin Supplement 10 ml/ Zinc/Copper/Manganese/Selenium 1 ml/ Sodium Phosphate 15 mmol/ Parenteral Electrolytes 20 ml/ Amino Acids/Dextrose 1,036 mls @ 30 mls/hr IV .Q24H [facility] Stop: 07/12/21 12:00 Parenteral Vitamin Supplement 10 ml/ Zinc/Copper/Manganese/Selenium 1 ml/ Parenteral Electrolytes 20 ml/ Sodium Phosphate 15 mmol/ Amino Acids /Dextrose 1,036 mls @ 80 mls/hr IV .BY DURATION [facility] Parenteral Electrolytes 20 ml/Sodium Phosphate 15 mmol/Amino Acids/Dextrose 1,025 mls @ 80 mls/hr IV .BY DURATION [facility] Insulin Aspart (Insulin Aspart (Novolog) 100 Unit/Ml Vial) 0 unit SQ ACHS [facility]; Protocol Last Admin: 07/11/21 21:13 Dose: Not Given Documented by: Megestrol Acetate (Megestrol 40 Mg Tab) 40 mg PO DAILY [facility] Last Admin: 07/11/21 10:59 Dose: Not Given Documented by: Melatonin (Melatonin 3 Mg Tablet) 3 mg PO [facility] Last Admin: 07/11/21 21:13 Dose: 3 mg Documented by: Metoclopramide HCl (Metoclopramide 5 Mg/Ml 2 Ml Vial) 10 mg IVP Q6HR PRN PRN Reason: Nausea And Vomiting Last Admin: 07/11/21 15:20 Dose: 10 mg Documented by: Metronidazole (Metronidazole 500 Mg Tab) 500 mg PO TID [facility] Last Admin: 07/11/21 21:13 Dose: 500 mg Documented by: Miscellaneous Information (Potassium Replacement Protocol 1 Each Misc) 1 each MISCELLANE DAILY PRN; Protocol PRN Reason: Per Protocol Naloxone HCl (Naloxone 0.4 Mg/Ml 1 Ml Vial) 0.2 mg IV Q2M PRN PRN Reason: Opioid Reversal Ondansetron HCl (Ondansetron 4 Mg/2 Ml Vial) 4 mg IVP Q6HR PRN PRN Reason: Nausea And Vomiting Last Admin: 07/10/21 16:45 Dose: 4 mg Documented by: Pantoprazole Sodium (Pantoprazole 40 Mg Tablet) 40 mg PO AC-BRKFST [facility] Last Admin: 07/11/21 10:59 Dose: 40 mg Documented by: Sodium Chloride (Sodium Chloride 0.9% Flush 10 Ml Syringe) 10 ml IV Q4HR PRN PRN Reason: PICC Line Sodium Chloride (Sodium Chloride 0.9% Flush 10 Ml Syringe) 10 ml IV WEEKLY [facility] Last Admin: 07/06/21 09:45 Dose: 10 ml Documented by: Sodium Chloride (Sodium Chloride 0.9% Flush 10 Ml Syringe) 20 ml IV Q4HR PRN PRN Reason: PICC Line Tramadol HCl (Tramadol 50 Mg Tab) 100 mg PO QID [facility] Last Admin: 07/11/21 21:15 Dose: 100 mg Documented by: Physical Exam: GENERAL: The patient is alert and oriented x3, not in any acute distress. Obese HEENT: Pupils are round and equally reacting to light. EOMI. No scleral icterus. No conjunctival pallor. Normocephalic, atraumatic. No pharyngeal erythema. No thyromegaly. CARDIOVASCULAR: S1 and S2 present. No murmurs, rubs, or gallops. PULMONARY: Chest is clear to auscultation, no wheezing or crackles. ABDOMEN: Soft, nontender, nondistended, normoactive bowel sounds. No palpable organomegaly. Midline abdominal wound is healing and dressing is in place. Right lower ileostomy with evidence of stool MUSCULOSKELETAL: No joint swelling or deformity. EXTREMITIES: No cyanosis, clubbing, or pedal edema. NEUROLOGICAL: Gross neurological examination did not reveal any focal deficits. SKIN: No rashes. no petechiae. Assessment: -Bowel perforation had ileus on admission. Status post laparotomy and small bowel resection, right colectomy ileostomy . Patient is presently on ceftriaxone and IV Flagyl. ID following closely as well as surgery as primary team. Patient still has poor oral intake secondary to his nausea although nausea somewhat improved. TPN being discussed. Patient has PICC line, but per nursing staff, PICC appears pulled out and will have PICC line reevaluated by cardiac cath team. -Acute kidney injury, most likely vancomycin toxicity. Continue with IV fluid, nephrology following. -hypertension. -History of Crohn's disease status post redo colectomy a few weeks ago -Leukocytosis , improved -DVT prophylaxis: Lovenox -GI prophylaxis: Protonix -full code Plan: Recommend to continue with current medications and management. Will continue to follow along with general surgery. ID following closely. TPN being discussed although PICC line appears to have been pulled out a little and will have it reevaluated prior to using. Consult to cath team who places PICC lines to assess. Will continue to follow along and make further recommendations depending on the clinical course of the patient. Prognosis is guarded. Objective - Vital Signs Vital signs: Vital Signs Temp 97.9 F 07/11/21 05:33 Pulse 75 07/11/21 07:05 Resp 16 07/11/21 07:05 BP 117/79 07/11/21 05:33 Pulse Ox 97 07/11/21 05:33 Intake & Output 07/10/21 07/11/21 07/11/21 18:59 06:59 18:59 Intake Total 1280 Output Total 1550 1750 350 Balance -270 -1750 -350 Intake: Oral 1280 Output: Urine 1300 1500 200 Stool 250 250 150 Other: Voiding Method Urinal Urinal - Labs CBC & Chem 7: 07/11/21 06:46 07/11/21 06:46 Labs: Abnormal Lab Results - Last 24 Hours (Table) 07/10/21 07/10/21 07/11/21 Range/Units 10:18 19:53 06:46 RBC (4.30-5.90) m/uL Hgb (13.0-17.5) gm/dL Hct (39.0-53.0) % MCHC (31.0-37.0) g/dL RDW (11.5-15.5) % Lymphocytes # (1.0-4.8) k/uL Sodium 135 L 134 L (137-145) mmol/L Carbon Dioxide 21 L (22-30) mmol/L Creatinine 2.42 H 2.5 H (0.66-1.25) mg/dL Est GFR (CKD-EPI)AfAm 35.6 L (60.0-200.0) Est GFR (CKD-EPI)NonAf 30.7 L (60.0-200.0) BUN/Creatinine Ratio 7.44 L (12.00-20.00) Ratio POC Glucose (mg/dL) 107 H (75-99) mg/dL Calcium 7.7 L 7.8 L (8.4-10.2) mg/dL 07/11/21 Range/Units 06:46 RBC 2.73 L (4.30-5.90) m/uL Hgb 7.9 L (13.0-17.5) gm/dL Hct 26.5 L (39.0-53.0) % MCHC 30.0 L (31.0-37.0) g/dL RDW 16.0 H (11.5-15.5) % Lymphocytes # 0.6 L (1.0-4.8) k/uL Sodium (137-145) mmol/L Carbon Dioxide (22-30) mmol/L Creatinine (0.66-1.25) mg/dL Est GFR (CKD-EPI)AfAm (60.0-200.0) Est GFR (CKD-EPI)NonAf (60.0-200.0) BUN/Creatinine Ratio (12.00-20.00) Ratio POC Glucose (mg/dL) (75-99) mg/dL Calcium (8.4-10.2) mg/dL
[2021-07-12 06:52] LABS: ALT 8 U/L (4-49); AST 29 U/L (17-59); African American GFR (CKD) 40 (>60 ml/min/1.73 sqM); Albumin 2.4 g/dL (3.5-5.0); Albumin/Globulin Ratio 0.7; Alkaline Phosphatase 179 U/L (38-126); Anion Gap 10 mmol/L; Blood Urea Nitrogen 19 mg/dL (9-20); Calcium 8.2 mg/dL (8.4-10.2); Carbon Dioxide 20 mmol/L (22-30); Chloride 105 mmol/L (98-107); Globulin 3.6 g/dL; Glucose 81 mg/dL (74-99); Magnesium 1.7 mg/dL (1.6-2.3); Non-African American GFR(CKD) 34 (>60 ml/min/1.73 sqM); Phosphorus 5.5 mg/dL (2.5-4.5); Potassium 4.2 mmol/L (3.5-5.1); Sodium 135 mmol/L (137-145); Total Bilirubin 1.1 mg/dL (0.2-1.3)
[2021-07-12 06:58] LABS: Glucose,Whole Blood 87 mg/dL (75-99)
[2021-07-12] MEDS: traMADol 50 MG TAB PO SCH ×4 (07:04→17:26)
[2021-07-12] MEDS: INSULIN ASPART (NovoLOG) 100 UNIT/ML VIAL SQ SCH ×4 (07:11→21:21)
[2021-07-12] MEDS: metroNIDAZOLE 500 MG TAB PO SCH ×3 (07:20→22:26)
[2021-07-12] MEDS: PANTOPRAZOLE 40 MG TABLET PO SCH (07:20)
[2021-07-12] MEDS: ENOXAPARIN 40 MG/0.4 ML SYRINGE SQ SCH (07:21)
[2021-07-12] MEDS: MEGESTROL 40 MG TAB PO SCH (07:21)
[2021-07-12] MEDS ORDERED: FAT EMULSION 20% 500 ML in EMPTY BAG 1 BAG IV SCH ×2 (09:00→18:00)
--- NOTE | 2021-07-12 09:12 | P.PN ---
Subjective Patient is seen in follow-up for acute kidney injury. Renal function slightly better. No pain. Oral intake fair. Blood pressure stable. No active complaints. Vital signs are stable. General: The patient appeared well nourished and normally developed. HEENT: Head exam is unremarkable. LUNGS: Breath sounds decreased. HEART: Rate and Rhythm are regular. ABDOMEN: Nontender. No distention. EXTREMITITES: No edema. Objective - Vital Signs Vital signs: Vital Signs Temp 98.3 F 07/12/21 07:18 Pulse 67 07/12/21 07:18 Resp 16 07/12/21 00:57 BP 114/76 07/12/21 07:18 Pulse Ox 97 07/12/21 07:18 Intake & Output 07/11/21 07/12/21 07/12/21 18:59 06:59 18:59 Intake Total 1050 236 Output Total 352 1000 Balance 698 -764 Weight 110.7 kg Intake: Intake, IV Titration 650 Amount Sodium Chloride 0.9% 1, 600 000 ml @ 75 mls/hr IV . [id number] [facility] Rx#:[id number] cefTRIAXone 2 gm In 50 Sodium Chloride 0.9% 50 ml @ 100 mls/hr IVPB Q24HR [facility] Rx#:[id number] Oral 400 236 Output: Drainage 2 Abdomen 2 Urine 200 800 Stool 150 200 Other: Voiding Method Urinal Urinal # Voids 4 - Labs CBC & Chem 7: 07/11/21 06:46 07/12/21 05:53 Labs: Abnormal Lab Results - Last 24 Hours (Table) 07/11/21 07/12/21 Range/Units 06:46 05:53 Lymphocytes # 0.6 L (1.0-4.8) k/uL Sodium 135 L (137-145) mmol/L Carbon Dioxide 20 L (22-30) mmol/L Creatinine 2.29 H (0.66-1.25) mg/dL Calcium 8.2 L (8.4-10.2) mg/dL Phosphorus 5.5 H (2.5-4.5) mg/dL Alkaline Phosphatase 179 H (38-126) U/L Total Protein 6.0 L (6.3-8.2) g/dL Albumin 2.4 L (3.5-5.0) g/dL Assessment and Plan Plan: Assessment: 1. Acute kidney injury secondary to nephrotoxic ATN from vancomycin toxicity. Creatinine 2.29 today. UA benign. 2. Abdominal abscess status post exploratory laparotomy with right colectomy and small bowel resection and ileostomy no hydronephrosis noted on CAT scan.. On antibiotics. 3. Hyperkalemia secondary to acute kidney injury. Resolved. 4. Crohn's disease. 5. Anemia. Iron deficiency noted. 6. Mild hypomagnesemia from poor intake. Being replaced. Plan: Maintain IV fluids - currently held while awaiting new IV access. Hold off on IV iron due to abdominal infection. Continue to monitor renal function and urine output. Avoid nephrotoxins. TPN to be started as well.
[2021-07-12 11:47] LABS: Glucose,Whole Blood 107 mg/dL (75-99)
[2021-07-12] MEDS: SODIUM CHLORIDE 0.9% 1,000 ML IV SCH (12:46)
--- NOTE | 2021-07-12 14:42 | P.PN ---
Subjective Progress Note Date: 07/12/21 CHIEF COMPLAINT: Drainage from abdominal incision HISTORY OF PRESENT ILLNESS: Patient is status post exploratory laparotomy, small bowel resection, right colectomy with ileostomy for abdominal fascial dehi scence, perforated small bowel and intra-abdominal abscess on 06/21/21. Patient is sitting up at bedside chair. Reports his pain is controlled. His ostomy is functioning. Still having poor oral intake. He is scheduled to have TPN restarted today once new PICC line placed. Patient has had decreased drainage from his ADRIAN drain 30 mL output throughout the night. Afebrile. Creatinine 2.29 Patient seen and examined with Dr. steen PHYSICAL EXAM: VITAL SIGNS: Reviewed. GENERAL: Well-developed in no acute distress. HEENT: No sclera icterus. Extraocular movements grossly intact. Moist buccal mucosa. Head is atraumatic, normocephalic. ABDOMEN: Soft. Nondistended. Ileostomy brown stool. ADRIAN drain purulent output. Incisional dressing clean dry and intact. NEUROLOGIC: Alert and oriented. Cranial nerves II through XII grossly intact. ASSESSMENT: 1. 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 Ileus resolved 3. Crohn's disease with abscess status post ileocolectomy and washout of peritoneal abscess on 05/28/2021 4. Generalized weakness 5. Anemia likely dilutional from IV fluids 6. Acute kidney injury PLAN: -Start TPN for nutrition support. Patient scheduled for new PICC line placement today -Continue IV fluids -Encouraged patient to increase oral intake -Continue regular diet -Continue local wound care -Continue to monitor hemoglobin -Continue to monitor ADRIAN drain output -Encouraged patient to increase activity -Continue supportive care -Continue antibiotics -Incentive spirometer ordered -Encouraged patient to ambulate -DVT prophylaxis Lovenox and GI prophylaxis Protonix Physician Geospatial Systems Integrator note has been reviewed by physician. Signing provider agrees with the documented findings, assessment, and plan of care. Objective - Vital Signs Vital signs: Vital Signs Temp 98.3 F 07/12/21 07:18 Pulse 67 07/12/21 07:18 Resp 16 07/12/21 00:57 BP 114/76 07/12/21 07:18 Pulse Ox 97 07/12/21 07:18 Intake & Output 02/07/12/21 07/12/21 18:59 06:59 18:59 Intake Total 1050 236 472 Output Total 352 1000 Balance 698 -764 472 Weight 110.7 kg Intake: Intake, IV Titration 650 Amount Sodium Chloride 0.9% 1, 600 000 ml @ 75 mls/hr IV . [id number] [facility] Rx#:[id number] cefTRIAXone 2 gm In 50 Sodium Chloride 0.9% 50 ml @ 100 mls/hr IVPB Q24HR [facility] Rx#:[id number] Oral 400 236 472 Output: Drainage 2 Abdomen 2 Urine 200 800 Stool 150 200 Other: Voiding Method Urinal Urinal # Voids 4 - Labs CBC & Chem 7: 07/11/21 06:46 07/12/21 05:53 Labs: Abnormal Lab Results - Last 24 Hours (Table) 07/12/21 07/12/21 Range/Units 05:53 11:45 Sodium 135 L (137-145) mmol/L Carbon Dioxide 20 L (22-30) mmol/L Creatinine 2.29 H (0.66-1.25) mg/dL POC Glucose (mg/dL) 107 H (75-99) mg/dL Calcium 8.2 L (8.4-10.2) mg/dL Phosphorus 5.5 H (2.5-4.5) mg/dL Alkaline Phosphatase 179 H (38-126) U/L Total Protein 6.0 L (6.3-8.2) g/dL Albumin 2.4 L (3.5-5.0) g/dL
[2021-07-12] MEDS: MAGNESIUM SULFATE-D5W PMX 1 GM in DEXTROSE/WATER 1 100ML.BAG IVPB SCH (15:09)
[2021-07-12] MEDS ORDERED: 1: MVI, ADULT NO.4 WITH VIT K 10 ML, TRACE (CONC-1ML/DOSE) 1 ML, PARENTERAL ELECTROLYTES IV SCH ×5 (16:00)
[2021-07-12] MEDS ORDERED: ONDANSETRON 4 MG TAB PO PRN (16:44)
[2021-07-12 16:54] LABS: Glucose,Whole Blood 97 mg/dL (75-99)
[2021-07-12] MEDS ORDERED: MVI, ADULT NO.4 WITH VIT K 10 ML, TRACE (CONC-1ML/DOSE) 1 ML, PARENTERAL ELECTROLYTES 2... IV ONE ×4 (18:00)
[2021-07-12 20:15] LABS: Glucose,Whole Blood 74 mg/dL (75-99)
[2021-07-12] MEDS: MELATONIN 3 MG TABLET PO SCH (22:26)
[2021-07-13] MEDS: traMADol 50 MG TAB PO SCH ×5 (02:57→22:14)
[2021-07-13] MEDS: SODIUM CHLORIDE 0.9% 1,000 ML IV SCH ×2 (02:57→16:19)
--- NOTE | 2021-07-13 04:52 | P.PN ---
Subjective Progress Note Date: 07/12/21 41-year-old male with history of Crohn's disease and abscess had a ileocolectomy on 05/28/2021 subsequently discharged to [facility] patient rehabitation patient won't cultures during previous hospital physicians showed E. coli and Keke patient to complete the treatment with Augmentin and Diflucan. I did evaluate this patient at [facility] inpatient rehabilitation at that time I obtain the cultures as there was concern about new infection in the surgical site area will obtain those cultures, infectious disease evaluated the patient there. Patient was subsequently discharged. came in with the increase the pain and infection of the surgical site area now. Patient had a CT of the abdomen which is concerning for ileus although patient was having normal bowel movements. Patient is hyponatremic. Patient will sugars are highly elevated lower obtain hemoglobin and patient was started on insulin regimen along with sliding scale. Subjective: 07/08/2021 This is a pleasant 41 years old male who presents with surgical site infection with bowel perforation status post exploratory laparotomy and small bowel resection with right colectomy and ileostomy on the right side, patient had si gnificant infection and recurrent word several and prolonged antibiotic therapy. Currently he was on ceftriaxone and Flagyl, vancomycin was already discontinued, however level today was elevated at 32 and there is evidence of trending up creatinine from baseline of 0.7-0.9 up to 1.6 yesterday and 2.27 today. No incidents, no evidence of hypertension, no recent IV contrast and patient is currently on normal saline at 75 mL/h. He had Wheeler catheter previously which was discontinued, discussed with the bedside nurse Hesham to check bladder scan. Chemical Packager team were consulted. Several consultants on the case included surgery primary team, infectious disease team. Patient himself is fully awake and oriented looks calm, no distress, no symptoms. No abdominal pain and ileostomy bag is working, however his eating is marginal. Patient encouraged to eat more 07/09/2021 Patient clinically looks similar to yesterday, no other new complaints. He still has poor oral and take even to food brought from THE [facility]OS[facility]ITAL, PART OF IT IS A DUE TO NAUSEA AND CONTROLLED WITH ZOFRAN. DAILY REGLAN HAS BEEN ADDED NEEDED. ALSO BOX SPRING UPHOLSTERER TEAM FOLLOWING HIM CLOSELY FOR HIS ACUTE KIDNEY INJURY SUSP ECTED SECONDARY TO VANCOMYCIN TOXICITY currently his IV vancomycin is put on hold and his creatinine is slightly elevated at 2.4 compared to 2.27 yesterday. The patient is making good urine output. Checked bladder scan 35 mL only. Regarding his wound infection is currently covered with ceftriaxone and Flagyl as well as normal saline 75 mL/h. His ileostomy bag is working. No abdominal pain 07/10/2021 Patient is still with poor appetite, no nausea contributing to his low appetite today. I discussed with him and bedside nurse to try soft diet and he agrees. Vitals stable. Creatinine is stable 2.4-like yesterday secondary to vancomycin toxicity. Patient continued currently normal saline 75 mL/h Also continued with ceftriaxone and Flagyl for his infected wound area. 07/11/2021 Patient is seen in follow up today and patient continues on IV antibiotics in the form of rocephin and flagyl with infectious disease following closely. Multiple medical consultations following. Nephrology following as renal functions continue to be elevated. Patient with continued poor oral intake and surgery planning TPN. Patient has a PICC. No reports of chest pain or palpitations. Patient denies shortness of breath. Patient is afebrile. 07/12/2021 Patient evaluated today in the chair at bedside with no acute overnight issues noted. Patient scheduled to receive new PICC line today to initiate TPN. Nephrology and ID following closely and creatinine stable. Patient continues on ceftriaxone and flagyl. Patient continues with poor oral intake and will repeat am labs. Continue with local wound care and ADRIAN drain noted with less output today. Patient denies chest pain or shortness of breath, patient is afebrile. Patient continues with some nausea at times. Patient denies vomiting. Active Medications Albuterol Sulfate (Albuterol Nebulized 2.5 Mg/3 Ml) 2.5 mg INHALATION RT-Q6H PRN PRN Reason: Shortness Of Breath Enoxaparin Sodium (Enoxaparin 40 Mg/0.4 Ml Syringe) 40 mg SQ DAILY [facility] Last Admin: 07/12/21 07:21 Dose: 40 mg Documented by: Hydromorphone HCl (Hydromorphone 1 Mg/Ml 1 Ml Syringe) 1 mg IVP Q4HR PRN PRN Reason: Severe Pain Last Admin: 07/05/21 14:15 Dose: 1 mg Documented by: Sodium Chloride (Saline 0.9%) 1,000 mls @ 75 mls/hr IV .[id number] [facility] Last Admin: 07/13/21 02:57 Dose: Not Given Documented by: Ceftriaxone Sodium 2 gm/ (Sodium Chloride) 50 mls @ 100 mls/hr IVPB Q24HR [facility] Last Admin: 07/12/21 16:16 Dose: Not Given Documented by: Parenteral Vitamin Supplement 10 ml/ Zinc/Copper/Manganese/Selenium 1 ml/ Parenteral Electrolytes 20 ml/ Amino Acids/Dextrose 1,031 mls @ 30 mls/hr IV .Q24H ONE Stop: 07/13/21 17:59 Last Admin: 07/12/21 17:07 Dose: Not Given Documented by: Fat Emulsion Intravenous 500 (ml/ IV Solution) 500 mls @ 42 mls/hr IV Tu@1800 [facility] Last Admin: 07/12/21 17:07 Dose: Not Given Documented by: Parenteral Vitamin Supplement 10 ml/ Zinc/Copper/Manganese/Selenium 1 ml/ Parenteral Electrolytes 20 ml/ Amino Acids/Dextrose 1,031 mls @ 80 mls/hr IV .BY DURATION [facility] Parenteral Electrolytes 20 ml/ (Amino Acids/Dextrose) 1,020 mls @ 80 mls/hr IV .BY DURATION [facility] Insulin Aspart (Insulin Aspart (Novolog) 100 Unit/Ml Vial) 0 unit SQ ACHS [facility]; Protocol Last Admin: 07/12/21 21:21 Dose: Not Given Documented by: Melatonin (Melatonin 3 Mg Tablet) 3 mg PO HS [facility] Last Admin: 07/12/21 22:26 Dose: 3 mg Documented by: Metoclopramide HCl (Metoclopramide 5 Mg/Ml 2 Ml Vial) 10 mg IVP Q6HR PRN PRN Reason: Nausea And Vomiting Last Admin: 07/11/21 15:20 Dose: 10 mg Documented by: Metronidazole (Metronidazole 500 Mg Tab) 500 mg PO TID [facility] Last Admin: 07/12/21 22:26 Dose: 500 mg Documented by: Miscellaneous Information (Potassium Replacement Protocol 1 Each Misc) 1 each MISCELLANE DAILY PRN; Protocol PRN Reason: Per Protocol Naloxone HCl (Naloxone 0.4 Mg/Ml 1 Ml Vial) 0.2 mg IV Q2M PRN PRN Reason: Opioid Reversal Ondansetron HCl (Ondansetron 4 Mg/2 Ml Vial) 4 mg IVP Q6HR PRN PRN Reason: Nausea And Vomiting Last Admin: 07/10/21 16:45 Dose: 4 mg Documented by: Ondansetron HCl (Ondansetron 4 Mg Tab) 4 mg PO Q6HR PRN PRN Reason: Nausea And Vomiting Pantoprazole Sodium (Pantoprazole 40 Mg Tablet) 40 mg PO AC-BRKFST [facility] Last Admin: 07/12/21 07:20 Dose: 40 mg Documented by: Sodium Chloride (Sodium Chloride 0.9% Flush 10 Ml Syringe) 10 ml IV Q4HR PRN PRN Reason: PICC Line Sodium Chloride (Sodium Chloride 0.9% Flush 10 Ml Syringe) 10 ml IV WEEKLY [facility] Last Admin: 07/06/21 09:45 Dose: 10 ml Documented by: Sodium Chloride (Sodium Chloride 0.9% Flush 10 Ml Syringe) 20 ml IV Q4HR PRN PRN Reason: PICC Line Tramadol HCl (Tramadol 50 Mg Tab) 100 mg PO QID [facility] Last Admin: 07/13/21 04:07 Dose: 100 mg Documented by: Physical Exam: GENERAL: The patient is alert and oriented x3, not in any acute distress. Obese HEENT: Pupils are round and equally reacting to light. EOMI. No scleral icterus. No conjunctival pallor. Normocephalic, atraumatic. No pharyngeal erythema. No thyromegaly. CARDIOVASCULAR: S1 and S2 present. No murmurs, rubs, or gallops. PULMONARY: Chest is clear to auscultation, no wheezing or crackles. ABDOMEN: Soft, nontender, nondistended, normoactive bowel sounds. No palpable organomegaly. Midline abdominal wound is healing and dressing is in place. Right lower ileostomy with evidence of stool MUSCULOSKELETAL: No joint swelling or deformity. EXTREMITIES: No cyanosis, clubbing, or pedal edema. NEUROLOGICAL: Gross neurological examination did not reveal any focal deficits. SKIN: No rashes. no petechiae. Assessment: -Bowel perforation had ileus on admission. Status post laparotomy and small bowel resection, right colectomy ileostomy . Patient is presently on ceftriaxone and IV Flagyl. ID following closely as well as surgery as primary team. Patient still has poor oral intake secondary to his nausea although kenneth sea somewhat improved. TPN being planned and awaiting new PICC line placement. -Acute kidney injury, most likely vancomycin toxicity. Continue with IV fluid, nephrology following. -hypertension. -History of Crohn's disease status post redo colectomy a few weeks ago -Leukocytosis , improved -DVT prophylaxis: Lovenox -GI prophylaxis: Protonix -full code Plan: Recommend to continue with current medications and management. Will continue to follow along with general surgery. ID following closely. TPN being discussed although PICC line needs to be replaced as it appears to have been pulled out a little. Consult to cath team who places PICC lines to assess. Will continue to follow along and make further recommendations depending on the clinical course of the patient. Prognosis is guarded. Objective - Vital Signs Vital signs: Vital Signs Temp 98.3 F 07/12/21 07:18 Pulse 67 07/12/21 07:18 Resp 16 07/12/21 00:57 BP 114/76 07/12/21 07:18 Pulse Ox 97 07/12/21 07:18 Intake & Output 07/11/21 07/12/21 07/12/21 18:59 06:59 18:59 Intake Total 1050 236 Output Total 352 1000 Balance 698 -764 Weight 110.7 kg Intake: Intake, IV Titration 650 Amount Sodium Chloride 0.9% 1, 600 000 ml @ 75 mls/hr IV . [id number] MARIELOS Rx#:[id number] cefTRIAXone 2 gm In 50 Sodium Chloride 0.9% 50 ml @ 100 mls/hr IVPB Q24HR [facility] Rx#:[id number] Oral 400 236 Output: Drainage 2 Abdomen 2 Urine 200 800 Stool 150 200 Other: Voiding Method Urinal Urinal # Voids 4 - Labs CBC & Chem 7: 07/11/21 06:46 07/12/21 05:53 Labs: Abnormal Lab Results - Last 24 Hours (Table) 07/11/21 07/11/21 07/12/21 Range/Units 06:46 06:46 05:53 Lymphocytes # 0.6 L (1.0-4.8) k/uL Sodium 134 L 135 L (135-145) mmol/L Carbon Dioxide 20 L (22-30) mmol/L Creatinine 2.5 H 2.29 H (0.6-1.5) mg/dL Est GFR (CKD-EPI)AfAm 35.6 L (60.0-200.0) Est GFR (CKD-EPI)NonAf 30.7 L (60.0-200.0) BUN/Creatinine Ratio 7.44 L (12.00-20.00) Ratio Calcium 7.8 L 8.2 L (8.7-10.3) mg/dL Phosphorus 5.5 H (2.5-4.5) mg/dL Alkaline Phosphatase 179 H (38-126) U/L Total Protein 6.0 L (6.3-8.2) g/dL Albumin 2.4 L (3.5-5.0) g/dL
[2021-07-13 06:37] LABS: ALT 7 U/L (4-49); AST 31 U/L (17-59); African American GFR (CKD) 38 (>60 ml/min/1.73 sqM); Albumin 2.4 g/dL (3.5-5.0); Albumin/Globulin Ratio 0.6; Alkaline Phosphatase 185 U/L (38-126); Anion Gap 7 mmol/L; Blood Urea Nitrogen 18 mg/dL (9-20); Calcium 8.2 mg/dL (8.4-10.2); Carbon Dioxide 21 mmol/L (22-30); Chloride 103 mmol/L (98-107); Globulin 3.7 g/dL; Glucose 88 mg/dL (74-99); Magnesium 1.7 mg/dL (1.6-2.3); Non-African American GFR(CKD) 33 (>60 ml/min/1.73 sqM); Potassium 4.3 mmol/L (3.5-5.1); Sodium 131 mmol/L (137-145); Total Bilirubin 1.1 mg/dL (0.2-1.3); Total Protein 6.1 g/dL (6.3-8.2)
[2021-07-13 06:49] LABS: Glucose,Whole Blood 100 mg/dL (75-99)
[2021-07-13] MEDS: ENOXAPARIN 40 MG/0.4 ML SYRINGE SQ SCH (08:33)
[2021-07-13] MEDS: INSULIN ASPART (NovoLOG) 100 UNIT/ML VIAL SQ SCH ×4 (09:13→22:14)
--- NOTE | 2021-07-13 09:39 | P.PN ---
Subjective Patient is seen in follow-up for acute kidney injury. Renal function stable. No pain. TPN to be started today. Oral intake just fair. Vital signs are stable. General: The patient appeared well nourished and normally developed. HEENT: Head exam is unremarkable. LUNGS: Breath sounds decreased. HEART: Rate and Rhythm are regular. ABDOMEN: Nontender. No distention. EXTREMITITES: No edema. Objective - Vital Signs Vital signs: Vital Signs Temp 98.5 F 07/13/21 08:00 Pulse 78 07/13/21 08:00 Resp 18 07/13/21 08:00 BP 114/78 07/13/21 08:00 Pulse Ox 99 07/13/21 08:00 Intake & Output 07/12/21 07/13/21 07/13/21 18:59 06:59 18:59 Intake Total 472 240 Output Total 650 Balance 472 -410 Intake: Oral 472 240 Output: Urine 550 Stool 100 Other: Voiding Method Urinal - Labs CBC & Chem 7: 07/11/21 06:46 07/13/21 05:53 Labs: Abnormal Lab Results - Last 24 Hours (Table) 07/12/21 07/12/21 07/13/21 Range/Units 11:45 20:12 05:53 Sodium 131 L (137-145) mmol/L Carbon Dioxide 21 L (22-30) mmol/L Creatinine 2.35 H (0.66-1.25) mg/dL POC Glucose (mg/dL) 107 H 74 L (75-99) mg/dL Calcium 8.2 L (8.4-10.2) mg/dL Phosphorus 5.0 H (2.5-4.5) mg/dL Alkaline Phosphatase 185 H (38-126) U/L Total Protein 6.1 L (6.3-8.2) g/dL Albumin 2.4 L (3.5-5.0) g/dL 07/13/21 Range/Units 06:47 Sodium (137-145) mmol/L Carbon Dioxide (22-30) mmol/L Creatinine (0.66-1.25) mg/dL POC Glucose (mg/dL) 100 H (75-99) mg/dL Calcium (8.4-10.2) mg/dL Phosphorus (2.5-4.5) mg/dL Alkaline Phosphatase (38-126) U/L Total Protein (6.3-8.2) g/dL Albumin (3.5-5.0) g/dL Assessment and Plan Plan: Assessment: 1. Acute kidney injury secondary to nephrotoxic ATN from vancomycin toxicity. Creatinine stable at 2.35 today. UA benign. 2. Abdominal abscess status post exploratory laparotomy with right colectomy and small bowel resection and ileostomy no hydronephrosis noted on CAT scan.. On antibiotics. 3. Hyperkalemia secondary to acute kidney injury. Resolved. 4. Crohn's disease. 5. Anemia. Iron deficiency noted. 6. Mild hypomagnesemia from poor intake.Replaced. Plan: Currently off IV fluids. Does not have an IV access. TPN to be started today. Hold off on IV iron due to abdominal infection. Continue to monitor renal function and urine output. Avoid nephrotoxins. Replace magnesium. Check renal ultrasound.
--- NOTE | 2021-07-13 10:42 | US ---
EXAMINATION TYPE: US kidneys/renal and bladder DATE OF EXAM: 07/13/2021 COMPARISON: CT 06/19/21 CLINICAL HISTORY: jung. S/P surgery for bowel obstruction. Patient c/o nausea. EXAM MEASUREMENTS: Right Kidney: 14.2 x 6.6 x 6.1 cm Left Kidney: 13.6 x 6.7 x 6.5 cm Post Void Residual Volume: Not calculated mL Right Kidney: No hydronephrosis or masses seen Left Kidney: No hydronephrosis or masses seen Bladder: wnl Bilateral Jets seen: Yes Normal Post Void Residual: Not calculated on this inpatient. There is no evidence for hydronephrosis at this point in time. No nephrolithiasis is seen. No manuel s are identified. The urinary bladder is anechoic. Bilateral ureteral jets are seen. Suboptimal images due to patients large size and inability to move or change positions. There is also a large pad/bandage in the way. IMPRESSION: Suboptimal study as noted above.
[2021-07-13] MEDS: metroNIDAZOLE 500 MG TAB PO SCH ×3 (10:47→19:55)
[2021-07-13] MEDS: PANTOPRAZOLE 40 MG TABLET PO SCH ×2 (10:47→11:14)
[2021-07-13 11:59] LABS: Glucose,Whole Blood 87 mg/dL (75-99)
--- NOTE | 2021-07-13 13:33 | P.CN ---
Psychiatric Consult - . 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 REASON FOR REFERRAL: Psychiatry was consulted for depression HISTORY OF PRESENT ILLNESS: The patient presented to the hospital initially on 06/19 for abdominal pain and Crohn's disease. Patient was apparently having drainage after an ileectomy. Patient had a prolonged hospital stay and also is status post exploratory laparotomy with small bowel resection. He apparently has recently been showing signs of depression, poor oral intake and been very withdrawn since being in the hospital according to nurse. She also states the patient's sleep has been fairly poor and has poor motivation. Patient was approached by singer songwriter to be interviewed today and appeared to be fairly calm and directable. He had a soft tone of voice and appeared to have a mildly depressed affect. He spoke about the struggles of being in the hospital for extended period of time and also not being away from his family. He states that his may come visit him today which she is looking forward to. He states that he has been dealing with multiple hospitals and also rehabilitation which "didn't go too well". He states that he's also had multiple surgeries. He claims that he was having A. fib and was also septic and on a ventilator in the ICU. He states that they found a drug abscess again in his intestines. He claims that financially it has been very costly for him to be in the hospital she has been causing him to feel down and mildly depressed. He states that he has been fe eling more withdrawn and has "no appetite". He states that he is having some chronic anxiety. He states his sleep has been "on and off" . At this time patient denies any suicidal or homical ideations, intent or plan. Patient denies any auditory, visual hallucinations and denies any paranoia or delusions. Patients admits to using no recreational drugs or cigarettes. PAST PSYCHIATRIC HISTORY: Patient has a a history of anxiety. Patient denies being on any psychiatric medications. Patient denies any previous psychiatric hospitalizations. Patient denies any psychiatric outpatient follow-up. Patient denies any history of suicide attempts in the past. PAST MEDICAL HISTORY: As per medicine H&P. ALLERGIES: as per EMR. CHEMICAL DEPENDENCY HISTORY: as per HPI. FAMILY PSYCHIATRIC/SUBSTANCE USE HISTORY: denies SOCIAL HISTORY: Patient was born and raised in [place]. He states that he moved to [place] and then moved back to [place]. He claims that he completed high school and did "2 college degrees". 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 He is currently lives at house and has 1 kid. He denies any legal history. MENTAL STATUS EXAM: General Appearance: Patient appears to be overweight, long kimble, stated age is alert, pleasant, and attempts to be cooperative. Patient appears to have fair hygiene and grooming wearing hospital gown with fair eye contact. Behavior: Patient is calmly lying in bed without any agitated behavior. Tearful at times. Speech: Patient's speech is fluent and nonpressured. Soft tone Mood/Affect: Patient reports their mood is "down sometimes", affect is congruent Suicidality/Homicidality: Patient denies having any suicidal or homicidal ideation intent or plan. Perceptions: Patient denies any visual hallucinations and denies any auditory hallucinations Though content/process: There is no evidence of any delusional thought content and thought process is linear and goal-directed. Memory and concentration: AOX3, grossly intact for the purposes of this session. Can spell "WORLD" backwards Judgment and insight: Fair IMPRESSIONS: Major depressive disorder, mild Anxiety disorder unspecified PLAN: -At this time patient DOES NOT meet criteria for inpatient psychiatric admission. -Would recommend the following medication changes/additions: Continue with melatonin daily at bedtime for sleep. Added Remeron 15 mg daily at bedtime for mood/anxiety/appetite/insomnia, this can be increased to 30 mg tomorrow if patient is still having good sleep or any improvement. Consider adding on nabilone as a appetite stimulant, will defer to primary team. -sheep farm worker to provide patient with outpatient mental health/psychiatry resources for appropriate follow up upon discharge -Retail Merchandiser Technician spoke with patient about substance abuse and the harmful effects on medical and mental health, patient verbally understood and agreed. -Communicated plan to patient's nurse -Will continue to follow along as needed -Please contact with any questions.
--- NOTE | 2021-07-13 16:08 | P.PN ---
Subjective Progress Note Date: 07/13/21 CHIEF COMPLAINT: Drainage from abdominal incision HISTORY OF PRESENT ILLNESS: Patient is status post exploratory laparotomy, small bowel resection, right colectomy with ileostomy for abdominal fascial dehi scence, perforated small bowel and intra-abdominal abscess on 06/21/21. Patient lying in bed. Reports his pain is controlled. His ostomy is functioning. Still having poor oral intake. Unable to start TPN. They are unable to get PICC line placed. ADRIAN drain with about 20 mL of purulent drainage. Afebrile creatinine 2.35 patient is more teary-eyed and upset today. Patient being evaluated by gale paulino for depression. Patient seen and examined with Dr. steen PHYSICAL EXAM: VITAL SIGNS: Reviewed. GENERAL: Well-developed in no acute distress. HEENT: No sclera icterus. Extraocular movements grossly intact. Moist buccal mucosa. Head is atraumatic, normocephalic. ABDOMEN: Soft. Nondistended. Ileostomy brown stool. ADRIAN drain purulent output. Incisional dressing clean dry and intact. NEUROLOGIC: Alert and oriented. Cranial nerves II through XII grossly intact. ASSESSMENT: 1. 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 Ileus resolved 3. Crohn's disease with abscess status post ileocolectomy and washout of peritoneal abscess on 05/28/2021 4. Generalized weakness 5. Anemia likely dilutional from IV fluids 6. Acute kidney injury PLAN: -Midline to be placed that patient continue IV fluid -Encouraged patient to increase oral intake -Continue regular diet -Continue local wound care -Continue to monitor ADRIAN drain output -Encouraged patient to increase activity -Continue supportive care -Continue antibiotics -Incentive spirometer ordered -Encouraged patient to ambulate -DVT prophylaxis Lovenox and GI prophylaxis Protonix Physician Airline Hostess note has been reviewed by physician. Signing provider agrees with the documented findings, assessment, and plan of care. Objective - Vital Signs Vital signs: Vital Signs Temp 97.8 F 07/13/21 14:00 Pulse 68 07/13/21 14:00 Resp 18 07/13/21 14:00 BP 120/76 07/13/21 14:00 Pulse Ox 99 07/13/21 14:00 Intake & Output 07/12/21 07/13/2122 18:59 06:59 18:59 Intake Total 472 240 Output Total 650 Balance 472 -410 Weight 110.7 kg Intake: Oral 472 240 Output: Urine 550 Stool 100 Other: Voiding Method Urinal - Labs CBC & Chem 7: 07/11/21 06:46 07/13/21 05:53 Labs: Abnormal Lab Results - Last 24 Hours (Table) 07/12/21 07/13/21 07/13/21 Range/Units 20:12 05:53 06:47 Sodium 131 L (137-145) mmol/L Carbon Dioxide 21 L (22-30) mmol/L Creatinine 2.35 H (0.66-1.25) mg/dL POC Glucose (mg/dL) 74 L 100 H (75-99) mg/dL Calcium 8.2 L (8.4-10.2) mg/dL Phosphorus 5.0 H (2.5-4.5) mg/dL Alkaline Phosphatase 185 H (38-126) U/L Total Protein 6.1 L (6.3-8.2) g/dL Albumin 2.4 L (3.5-5.0) g/dL
--- NOTE | 2021-07-13 16:11 | P.PN ---
Subjective 41-year-old male with history of Crohn's disease and abscess had a ileocolectomy on 05/28/2021 subsequently discharged to [facility] patient rehabitation patient won't cultures during previous hospital physicians showed E. coli and Keke patient to complete the treatment with Augmentin and Diflucan. I did evaluate this patient at [facility] rehabilitation at that time I obtain the cultures as there was concern about new infection in the surgical site area will obtain those cultures, infectious disease evaluated the patient there. Patient was subsequently discharged. came in with the increase the pain and infection of the surgical site area now. Patient had a CT of the abdomen which is concerning for ileus although patient was having normal bowel movements. Patient is hyponatremic. Patient will sugars are highly elevated lower obtain hemoglobin and patient was started on insulin regimen along with sliding scale. Subjective: 07/08/2021 This is a pleasant 41 years old male who presents with surgical site infection with bowel perforation status post exploratory laparotomy and small bowel resection with right colectomy and ileostomy on the right side, patient had significant infection and recurrent word several and prolonged antibiotic therapy. Currently he was on ceftriaxone and Flagyl, vancomycin was already discontinued, however level today was elevated at 32 and there is evidence of trending up creatinine from baseline of 0.7-0.9 up to 1.6 yesterday and 2.27 today. No incidents, no evidence of hypertension, no recent IV contrast and patient is currently on normal saline at 75 mL/h. He had Wheeler catheter previously which was discontinued, discussed with the bedside nurse Hesham to check bladder scan. Plaster Tender team were consulted. Several consultants on the case included surgery primary team, infectious disease team. Patient himself is fully awake and oriented looks calm, no distress, no symptoms. No abdominal pain and ileostomy bag is working, however his eating is marginal. Patient encouraged to eat more 07/09/2021 Patient clinically looks similar to yesterday, no other new complaints. He still has poor oral and take even to food brought from [facility], PART OF IT IS A DUE TO NAUSEA AND CONTROLLED WITH ZOFRAN. DAILY REGLAN HAS BEEN ADDED NEEDED. ALSO FELLER OPERATOR TEAM FOLLOWING HIM CLOSELY FOR HIS ACUTE KIDNEY INJURY SUSPECTED SECONDARY TO VANCOMYCIN TOXICITY currently his IV vancomycin is put on hold and his creatinine is slightly elevated at 2.4 compared to 2.27 yesterday. The patient is making good urine output. Checked bladder scan 35 mL only. Regarding his wound infection is currently covered with ceftriaxone and Flagyl as well as normal saline 75 mL/h. His ileostomy bag is working. No abdominal pain 07/09/2021 Patient is still with poor appetite, no nausea contributing to his low appetite today. I discussed with him and bedside nurse to try soft diet and he agrees. Vitals stable. Creatinine is stable 2.4-like yesterday secondary to vancomycin toxicity. Patient continued currently normal saline 75 mL/h Also continued with ceftriaxone and Flagyl for his infected wound area. Subjective: Resume in the care of the patient again on 07/13/2021 Patient still with low appetite and some nausea and has not eaten much and TPN started by surgery team. He looks somewhat depressed and primary team recommended starting antidepressant, psych Raghu Franco consulted and he was placed on Remeron 15 mg at bedtime which could be increased to 30 mg tomorrow. His creatinine is still the same at 2.3, suspected secondary to vancomycin since toxicity. Currently he is on different antibiotics of ceftriaxone and Flagyl. Renal ultrasound showing no hydronephrosis or other significant abnormality to explain the patient's symptoms or abnormalities. There is some gentle hydration. Also he is on ceftriaxone and Flagyl with infectious disease team on the case. Objective - Vital Signs Vital signs: Vital Signs Temp 98.5 F 07/13/21 08:00 Pulse 78 07/13/21 08:00 Resp 18 07/13/21 08:00 BP 114/78 07/13/21 08:00 Pulse Ox 99 07/13/21 08:00 Intake & Output 07/12/21 07/13/21 07/13/21 18:59 06:59 18:59 Intake Total 472 240 Output Total 650 Balance 472 -410 Intake: Oral 472 240 Output: Urine 550 Stool 100 Other: Voiding Method Urinal - Exam -GENERAL: The patient is alert and oriented x3, not in any acute distress. Obese HEENT: Pupils are round and equally reacting to light. EOMI. No scleral icterus. No conjunctival pallor. Normocephalic, atraumatic. No pharyngeal erythema. No thyromegaly. CARDIOVASCULAR: S1 and S2 present. No murmurs, rubs, or gallops. PULMONARY: Chest is clear to auscultation, no wheezing or crackles. -ABDOMEN: Soft, nontender, nondistended, normoactive bowel sounds. No palpable organomegaly. Midline abdominal wound is healing and dressing is in place. Right lower ileostomy with evidence of stool MUSCULOSKELETAL: No joint swelling or deformity. EXTREMITIES: No cyanosis, clubbing, or pedal edema. NEUROLOGICAL: Gross neurological examination did not reveal any focal deficits. SKIN: No rashes. no petechiae. - Labs CBC & Chem 7: 07/11/21 06:46 07/13/21 05:53 Labs: Abnormal Lab Results - Last 24 Hours (Table) 07/12/21 07/12/21 07/13/21 Range/Units 11:45 20:12 05:53 Sodium 131 L (137-145) mmol/L Carbon Dioxide 21 L (22-30) mmol/L Creatinine 2.35 H (0.66-1.25) mg/dL POC Glucose (mg/dL) 107 H 74 L (75-99) mg/dL Calcium 8.2 L (8.4-10.2) mg/dL Phosphorus 5.0 H (2.5-4.5) mg/dL Alkaline Phosphatase 185 H (38-126) U/L Total Protein 6.1 L (6.3-8.2) g/dL Albumin 2.4 L (3.5-5.0) g/dL 07/13/21 Range/Units 06:47 Sodium (137-145) mmol/L Carbon Dioxide (22-30) mmol/L Creatinine (0.66-1.25) mg/dL POC Glucose (mg/dL) 100 H (75-99) mg/dL Calcium (8.4-10.2) mg/dL Phosphorus (2.5-4.5) mg/dL Alkaline Phosphatase (38-126) U/L Total Protein (6.3-8.2) g/dL Albumin (3.5-5.0) g/dL Assessment and Plan Assessment: -Bowel perforation had ileus on admission. Status post laparotomy and small bowel resection, right colectomy ileostomy . Patient is presently on ceftriaxone and Flagyl. ID team on the case as well as surgery primary team. Patient still has poor oral intake secondary to his nausea. Reglan was added today as needed. TPN has been started -Acute kidney injury, vancomycin level be contributing. Continue with IV fluid, nephrology consult. Discontinue nephrotoxic substance, -hypertension. - Depression, start romeron per psychiatrist -History of Crohn's disease status post redo colectomy a few weeks ago -Leukocytosis , improved DVT prophylaxis: Lovenox GI prophylaxis: Protonix
[2021-07-13 16:24] LABS: Glucose,Whole Blood 84 mg/dL (75-99)
[2021-07-13] MEDS: MAGNESIUM SULFATE-D5W PMX 1 GM in DEXTROSE/WATER 1 100ML.BAG IVPB SCH ×3 (17:31→23:32)
[2021-07-13] MEDS ORDERED: MVI, ADULT NO.4 WITH VIT K 10 ML, TRACE (CONC-1ML/DOSE) 1 ML, PARENTERAL ELECTROLYTES 2... IV ONE ×4 (18:00)
[2021-07-13] MEDS ORDERED: FAT EMULSION 20% 500 ML in EMPTY BAG 1 BAG IV SCH (18:00)
[2021-07-13] MEDS ORDERED: 1: MVI, ADULT NO.4 WITH VIT K 10 ML, TRACE (CONC-1ML/DOSE) 1 ML, PARENTERAL ELECTROLYTES IV SCH ×4 (18:00)
[2021-07-13] MEDS: MIRTAZAPINE 15 MG TAB PO SCH (19:55)
[2021-07-13] MEDS: MELATONIN 3 MG TABLET PO SCH (19:59)
[2021-07-13 20:41] LABS: Glucose,Whole Blood 88 mg/dL (75-99)
[2021-07-13] MEDS ORDERED: MIRTAZAPINE 15 MG TAB PO SCH (21:00)
--- NOTE | 2021-07-13 22:17 | P.PN ---
Subjective Progress Note Date: 07/12/21 Principal diagnosis: Abdominal wound infection Patient is 41 year male with a past medical history significant for Crohn's disease in this patient who recently did have a laparotomy for abdominal abscess, no readmitted to the hospital with abdominal pain and concern for abdominal wound dehiscence and possible infection. Patient was taken to the OR 06/21/2021 patient is status post laparotomy right colectomy and ileostomy and drainage of abdominal abscess, I was asked to reevaluate the patient by the medical team on 07/07/2021 for adjustment of his antibiotic On today's evaluation that is 07/12/2021, the patient remains to be afebrile, the patient denies chest pain shortness of breath or cough. The patient abdominal pain is better controlled no nausea or vomiting no abdominal distention or pain and has been tolerating his diet Objective - Vital Signs Vital signs: Vital Signs Temp 98.3 F 07/12/21 07:18 Pulse 67 07/12/21 07:18 Resp 16 07/12/21 00:57 BP 114/76 07/12/21 07:18 Pulse Ox 97 07/12/21 07:18 Intake & Output 07/11/21 07/12/21 07/12/21 18:59 06:59 18:59 Intake Total 1050 236 236 Output Total 352 1000 Balance 698 -764 236 Weight 110.7 kg Intake: Intake, IV Titration 650 Amount Sodium Chloride 0.9% 1, 600 000 ml @ 75 mls/hr IV . [id number] [facility] Rx#:[id number] 2 gm In 50 Sodium Chloride 0.9% 50 ml @ 100 mls/hr IVPB Q24HR [facility] Rx#:[id number] Oral 400 236 236 Output: Drainage 2 Abdomen 2 Urine 200 800 Stool 150 200 Other: Voiding Method Urinal Urinal # Voids 4 - Exam GENERAL DESCRIPTION:[ Patient is awake and alert in no distress] HEENT: [Oral mucosa is dry and no pharyngeal erythema] RESPIRATORY SYSTEM: [Unlabored breathing decreased. The base] CARDIA VASCULAR SYSTEM: [S1-S2 regular rate and rhythm no murmur] GI: [Abdominal soft midline abdominal wound dressing is intact, ADRIAN drain did have some purulent drainage EXTREMITIES: [No edema feet] - Labs CBC & Chem 7: 07/11/21 06:46 07/13/21 05:53 Labs: Abnormal Lab Results - Last 24 Hours (Table) 07/12/21 Range/Units 05:53 Sodium 135 L (137-145) mmol/L Carbon Dioxide 20 L (22-30) mmol/L Creatinine 2.29 H (0.66-1.25) mg/dL Calcium 8.2 L (8.4-10.2) mg/dL Phosphorus 5.5 H (2.5-4.5) mg/dL Alkaline Phosphatase 179 H (38-126) U/L Total Protein 6.0 L (6.3-8.2) g/dL Albumin 2.4 L (3.5-5.0) g/dL Assessment and Plan (1) Incisional infection Current Visit: Yes Status: Acute Code(s): T81.49XA - INFECTION FOLLOWING A PROCEDURE, OTHER SURGICAL SITE, INIT SNOMED Code(s): 37486177 Plan: 1-patient admitted to the hospital with abdominal pain with abdominal incision dehiscence and concern for possible deep infection, and this patient who is status post exploratory laparotomy status post right colectomy and small bowel resection ileostomy and drainage of the abscess, no OR cultures were done superficial abdominal cultures showed E. coli and anaerobes, patient remains to be afebrile white count is normal, blood culture has been negative, patient to continue with Rocephin and Flagyl and monitor his clinical course closely
--- NOTE | 2021-07-13 22:18 | P.PN ---
Subjective Progress Note Date: 07/13/21 Principal diagnosis: Abdominal wound infection Patient is 41 year male with a past medical history significant for Crohn's disease in this patient who recently did have a laparotomy for abdominal abscess, no readmitted to the hospital with abdominal pain and concern for abdominal wound dehiscence and possible infection. Patient was taken to the OR 06/21/2021 patient is status post laparotomy right colectomy and ileostomy and drainage of abdominal abscess, I was asked to reevaluate the patient by the medical team on 07/07/2021 for adjustment of his antibiotic On today's evaluation that is 07/13/2021, the patient continues to be afebrile, the patient denies chest pain shortness of breath or cough. The patient abdominal pain is controlled however has been complaining of some nausea and fullness no vomiting no and no urinary symptoms Objective - Vital Signs Vital signs: Vital Signs Temp 97.8 F 07/13/21 14:00 Pulse 68 07/13/21 14:00 Resp 18 07/13/21 14:00 BP 120/76 07/13/21 14:00 Pulse Ox 99 07/13/21 14:00 Intake & Output 07/12/21 07/13/21 07/13/21 18:59 06:59 18:59 Intake Total 472 240 Output Total 650 Balance 472 -410 Weight 110.7 kg Intake: Oral 472 240 Output: Urine 550 Stool 100 Other: Voiding Method Urinal - Exam GENERAL DESCRIPTION:[ Patient is awake and alert in no distress] HEENT: [Oral mucosa is dry and no pharyngeal erythema] RESPIRATORY SYSTEM: [Unlabored breathing decreased. The base] CARDIA VASCULAR SYSTEM: [S1-S2 regular rate and rhythm no murmur] GI: [Abdominal soft midline abdominal wound dressing is intact, ADRIAN drain did have some purulent drainage EXTREMITIES: [No edema feet] - Labs CBC & Chem 7: 07/11/21 06:46 07/13/21 05:53 Labs: Abnormal Lab Results - Last 24 Hours (Table) 07/12/21 07/13/21 07/13/21 Range/Units 20:12 05:53 06:47 Sodium 131 L (137-145) mmol/L Carbon Dioxide 21 L (22-30) mmol/L Creatinine 2.35 H (0.66-1.25) mg/dL POC Glucose (mg/dL) 74 L 100 H (75-99) mg/dL Calcium 8.2 L (8.4-10.2) mg/dL Phosphorus 5.0 H (2.5-4.5) mg/dL Alkaline Phosphatase 185 H (38-126) U/L Total Protein 6.1 L (6.3-8.2) g/dL Albumin 2.4 L (3.5-5.0) g/dL Assessment and Plan (1) Incisional infection Current Visit: Yes Status: Acute Code(s): T81.49XA - INFECTION FOLLOWING A PROCEDURE, OTHER SURGICAL SITE, INIT SNOMED Code(s): 80634097 Plan: 1-patient admitted to the hospital with abdominal pain with abdominal incision dehiscence and concern for possible deep infection, and this patient who is status post exploratory laparotomy status post right colectomy and small bowel resection ileostomy and drainage of the abscess, no OR cultures were done superficial abdominal cultures showed E. coli and anaerobes, patient to continue with Rocephin and Flagyl and monitor his clinical course closely Time with Patient: Less than 30
[2021-07-14] MEDS: ONDANSETRON 4 MG/2 ML VIAL IVP PRN ×2 (00:28→11:18)
[2021-07-14] MEDS: MAGNESIUM SULFATE-D5W PMX 1 GM in DEXTROSE/WATER 1 100ML.BAG IVPB SCH ×10 (01:33→11:13)
[2021-07-14 07:17] LABS: Glucose,Whole Blood 99 mg/dL (75-99)
[2021-07-14] MEDS: INSULIN ASPART (NovoLOG) 100 UNIT/ML VIAL SQ SCH ×4 (08:20→22:41)
[2021-07-14 08:26] LABS: Basophils % (A) 1 %; Eosinophils # (A) 0.1 k/uL (0-0.7); Eosinophils % (A) 2 %; HCT 25.1 % (39.0-53.0); HGB 7.7 gm/dL (13.0-17.5); Hypochromasia Marked; Lymphocytes # (A) 0.7 k/uL (1.0-4.8); Lymphocytes % (A) 10 %; MCHC 30.8 g/dL (31.0-37.0); MCV 97.2 fL (80.0-100.0); Mean Platelet Volume 7.2; Monocytes # (A) 0.3 k/uL (0-1.0); Monocytes % (A) 4 %; Neutrophils # (A) 5.9 k/uL (1.3-7.7); Neutrophils % (A) 82 %; Platelet Count 335 k/uL (150-450); RBC 2.58 m/uL (4.30-5.90); RDW 15.9 % (11.5-15.5); WBC 7.3 k/uL (3.8-10.6)
[2021-07-14] MEDS: ENOXAPARIN 40 MG/0.4 ML SYRINGE SQ SCH (08:32)
[2021-07-14] MEDS: metroNIDAZOLE 500 MG TAB PO SCH ×3 (08:32→21:30)
[2021-07-14] MEDS: traMADol 50 MG TAB PO SCH ×4 (08:32→21:30)
[2021-07-14] MEDS: SODIUM CHLORIDE 0.9% 1,000 ML IV SCH ×2 (08:33→15:47)
[2021-07-14 08:39] LABS: ALT 7 U/L (4-49); AST 28 U/L (17-59); African American GFR (CKD) 41 (>60 ml/min/1.73 sqM); Albumin 2.4 g/dL (3.5-5.0); Albumin/Globulin Ratio 0.6; Alkaline Phosphatase 196 U/L (38-126); Anion Gap 8 mmol/L; Blood Urea Nitrogen 17 mg/dL (9-20); Carbon Dioxide 20 mmol/L (22-30); Chloride 104 mmol/L (98-107); Globulin 3.7 g/dL; Glucose 90 mg/dL (74-99); Magnesium 2.2 mg/dL (1.6-2.3); Non-African American GFR(CKD) 35 (>60 ml/min/1.73 sqM); Potassium 4.2 mmol/L (3.5-5.1); Sodium 132 mmol/L (137-145); Total Protein 6.1 g/dL (6.3-8.2)
--- NOTE | 2021-07-14 09:26 | P.PN ---
Subjective Patient is seen in follow-up for acute kidney injury. Renal function a little better today. Oral intake also improved. Receiving IV fluids. No pain. Vital signs are stable. General: The patient appeared well nourished and normally developed. HEENT: Head exam is unremarkable. LUNGS: Breath sounds decreased. HEART: Rate and Rhythm are regular. ABDOMEN: Nontender. No distention. EXTREMITITES: No edema. Objective - Vital Signs Vital signs: Vital Signs Temp 98.2 F 07/14/21 08:00 Pulse 59 L 07/14/21 08:00 Resp 18 07/14/21 08:00 BP 119/79 07/14/21 08:00 Pulse Ox 98 07/14/21 08:00 Intake & Output 07/13/21 07/14/21 07/14/21 18:59 06:59 18:59 Output Total 20 410 Balance -20 -410 Weight 110.7 kg Output: Drainage 20 10 Abdomen 20 10 Urine 400 Other: Voiding Method Urinal Urinal # Voids 5 # Bowel Movements 350 - Labs CBC & Chem 7: 07/14/21 07:40 07/14/21 07:40 Labs: Abnormal Lab Results - Last 24 Hours (Table) 07/14/21 07/14/21 Range/Units 07:40 07:40 RBC 2.58 L (4.30-5.90) m/uL Hgb 7.7 L (13.0-17.5) gm/dL Hct 25.1 L (39.0-53.0) % MCHC 30.8 L (31.0-37.0) g/dL RDW 15.9 H (11.5-15.5) % Lymphocytes # 0.7 L (1.0-4.8) k/uL Sodium 132 L (137-145) mmol/L Carbon Dioxide 20 L (22-30) mmol/L Creatinine 2.24 H (0.66-1.25) mg/dL Calcium 8.0 L (8.4-10.2) mg/dL Phosphorus 5.0 H (2.5-4.5) mg/dL Alkaline Phosphatase 196 H (38-126) U/L Total Protein 6.1 L (6.3-8.2) g/dL Albumin 2.4 L (3.5-5.0) g/dL Assessment and Plan Plan: Assessment: 1. Acute kidney injury secondary to nephrotoxic ATN from vancomycin toxicity. Creatinine toda slightly better at 2.24y. UA benign. No hydronephrosis noted on kidney ultrasound. 2. Abdominal abscess status post exploratory laparotomy with right colectomy and small bowel resection and ileostomy no hydronephrosis noted on CAT scan.. O n antibiotics. 3. Hyperkalemia secondary to acute kidney injury. Resolved. 4. Crohn's disease. 5. Anemia. Iron deficiency noted. 6. Mild hypomagnesemia from poor intake. Replaced. Better. Plan: Maintain IV fluids. Encouraged oral intake. Hold off on IV iron due to abdominal infection. Continue to monitor renal function and urine output. Avoid nephrotoxins.
--- NOTE | 2021-07-14 11:01 | P.PN ---
Subjective 41-year-old male with history of Crohn's disease and abscess had a ileocolectomy on 05/28/2021 subsequently discharged to [facility] patient rehabitation patient won't cultures during previous hospital physicians showed E. coli and Keke patient to complete the treatment with Augmentin and Diflucan. I did evaluate this patient at [facility] rehabilitation at that time I obtain the cultures as there was concern about new infection in the surgical site area will obtain those cultures, infectious disease evaluated the patient there. Patient was subsequently discharged. came in with the increase the pain and infection of the surgical site area now. Patient had a CT of the abdomen which is concerning for ileus although patient was having normal bowel movements. Patient is hyponatremic. Patient will sugars are highly elevated lower obtain hemoglobin and patient was started on insulin regimen along with sliding scale. Subjective: 07/08/2021 This is a pleasant 41 years old male who presents with surgical site infection with bowel perforation status post exploratory laparotomy and small bowel resection with right colectomy and ileostomy on the right side, patient had significant infection and recurrent word several and prolonged antibiotic therapy. Currently he was on ceftriaxone and Flagyl, vancomycin was already discontinued, however level today was elevated at 32 and there is evidence of trending up creatinine from baseline of 0.7-0.9 up to 1.6 yesterday and 2.27 today. No incidents, no evidence of hypertension, no recent IV contrast and patient is currently on normal saline at 75 mL/h. He had Wheeler catheter previously which was discontinued, discussed with the bedside nurse Hesham to check bladder scan. Course Developer team were consulted. Several consultants on the case included surgery primary team, infectious disease team. Patient himself is fully awake and oriented looks calm, no distress, no symptoms. No abdominal pain and ileostomy bag is working, however his eating is marginal. Patient encouraged to eat more 07/09/2021 Patient clinically looks similar to yesterday, no other new complaints. He still has poor oral and take even to food brought from [facility]OSP[facility], PART OF IT IS A DUE TO NAUSEA AND CONTROLLED WITH ZOFRAN. DAILY REGLAN HAS BEEN ADDED NEEDED. ALSO DESTINATION SPECIALIST TEAM FOLLOWING HIM CLOSELY FOR HIS ACUTE KIDNEY INJURY SUSPECTED SECONDARY TO VANCOMYCIN TOXICITY currently his IV vancomycin is put on hold and his creatinine is slightly elevated at 2.4 compared to 2.27 yesterday. The patient is making good urine output. Checked bladder scan 35 mL only. Regarding his wound infection is currently covered with ceftriaxone and Flagyl as well as normal saline 75 mL/h. His ileostomy bag is working. No abdominal pain 07/09/2021 Patient is still with poor appetite, no nausea contributing to his low appetite today. I discussed with him and bedside nurse to try soft diet and he agrees. Vitals stable. Creatinine is stable 2.4-like yesterday secondary to vancomycin toxicity. Patient continued currently normal saline 75 mL/h Also continued with ceftriaxone and Flagyl for his infected wound area. Subjective: Resume in the care of the patient again on 07/13/2021 Patient still with low appetite and some nausea and has not eaten much and TPN started by surgery team. He looks somewhat depressed and primary team recommended starting antidepressant, psych T Joan consulted and he was placed on Remeron 15 mg at bedtime which could be increased to 30 mg tomorrow. His creatinine is still the same at 2.3, suspected secondary to vancomycin since toxicity. Currently he is on different antibiotics of ceftriaxone and Flagyl. Renal ultrasound showing no hydronephrosis or other significant abnormality to explain the patient's symptoms or abnormalities. There is some gentle hydration. Also he is on ceftriaxone and Flagyl with infectious disease team on the case. 06/13/2021 Patient did not cut the PICC line and did not start TPN, and he said he is encouraged himself to eat despite his low appetite. No other new complaints and is hemodynamically stable. Creatinine is stable at 2.24. He remains on ceftriaxone, Flagyl, normal saline at 75 mL/h Yesterday psychiatrist to evaluate the patient and start him on romeron to help him with depression Objective - Vital Signs Vital signs: Vital Signs Temp 98.2 F 07/14/21 08:00 Pulse 59 L 07/14/21 08:00 Resp 18 07/14/21 08:00 BP 119/79 07/14/21 08:00 Pulse Ox 98 07/14/21 08:00 Intake & Output 07/13/21 07/14/21 07/14/21 18:59 06:59 18:59 Intake Total 236 Output Total 20 200 410 Balance -20 -200 -174 Weight 110.7 kg Intake: Oral 236 Output: Drainage 20 10 Abdomen 20 10 Urine 400 Stool 200 Other: Voiding Method Urinal Urinal # Voids 5 # Bowel Movements 350 - Labs CBC & Chem 7: 07/14/21 07:40 07/14/21 07:40 Labs: Abnormal Lab Results - Last 24 Hours (Table) 07/14/21 07/14/21 Range/Units 07:40 07:40 RBC 2.58 L (4.30-5.90) m/uL Hgb 7.7 L (13.0-17.5) gm/dL Hct 25.1 L (39.0-53.0) % MCHC 30.8 L (31.0-37.0) g/dL RDW 15.9 H (11.5-15.5) % Lymphocytes # 0.7 L (1.0-4.8) k/uL Sodium 132 L (137-145) mmol/L Carbon Dioxide 20 L (22-30) mmol/L Creatinine 2.24 H (0.66-1.25) mg/dL Calcium 8.0 L (8.4-10.2) mg/dL Phosphorus 5.0 H (2.5-4.5) mg/dL Alkaline Phosphatase 196 H (38-126) U/L Total Protein 6.1 L (6.3-8.2) g/dL Albumin 2.4 L (3.5-5.0) g/dL Assessment and Plan Assessment: -Bowel perforation had ileus on admission. Status post laparotomy and small bowel resection, right colectomy ileostomy . Patient is presently on ce ftriaxone and Flagyl. ID team on the case as well as surgery primary team. Patient still has poor oral intake secondary to his nausea. Reglan was added today as needed. TPN has been started -Acute kidney injury, vancomycin level be contributing. Continue with IV fluid, nephrology consult. Discontinue nephrotoxic substance -Elements of depression, psychiatric status patient on Dennis -hypertension. -History of Crohn's disease status post redo colectomy a few weeks ago -Leukocytosis , improved DVT prophylaxis: Lovenox GI prophylaxis: Protonix
[2021-07-14 11:40] LABS: Glucose,Whole Blood 108 mg/dL (75-99)
--- NOTE | 2021-07-14 13:54 | P.PN ---
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 Patient is lying in bed. Reports his pain is controlled. His ostomy is functioning. Patient reports his oral intake is starting to increase. Patient has a midline in place was unable to have PICC line placed. He is receiving IV fluids. ADRIAN drain with about 10 mL of purulent drainage. Patient seen by psychiatry they've ordered Remeron for his depression. Afebrile WBC 7.3 hemoglobin 7.7 creatinine 2.24 Patient seen and examined with Dr. steen PHYSICAL EXAM: VITAL SIGNS: Reviewed. GENERAL: Well-developed in no acute distress. HEENT: No sclera icterus. Extraocular movements grossly intact. Moist buccal mucosa. Head is atraumatic, normocephalic. ABDOMEN: Soft. Nondistended. Ileostomy brown stool. ADRIAN drain purulent output. Incisional dressing clean dry and intact. NEUROLOGIC: Alert and oriented. Cranial nerves II through XII grossly intact. ASSESSMENT: 1. 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 Ileus resolved 3. Crohn's disease with abscess status post ileocolectomy and washout of peritoneal abscess on 05/28/2021 4. Generalized weakness 5. Anemia likely dilutional from IV fluids 6. Acute kidney injury PLAN: -Encouraged patient to increase oral intake -Encouraged patient ambulate -Continue regular diet -Continue local wound care -Continue to monitor ADRIAN drain output -Continue supportive care -Continue antibiotics -Incentive spirometer ordered -DVT prophylaxis Lovenox and GI prophylaxis Protonix Physician Thread Singer note has been reviewed by physician. Signing provider agrees with the documented findings, assessment, and plan of care. Objective - Vital Signs Vital signs: Vital Signs Temp 98.2 F 07/14/21 08:00 Pulse 59 L 07/14/21 08:00 Resp 18 07/14/21 08:00 BP 119/79 07/14/21 08:00 Pulse Ox 98 07/14/21 08:00 Intake & Output 07/13/21 07/14/21 07/14/21 18:59 06:59 18:59 Intake Total 236 Output Total 20 200 410 Balance -20 -200 -174 Weight 110.7 kg Intake: Oral 236 Output: Drainage 20 10 Abdomen 20 10 Urine 400 Stool 200 Other: Voiding Method Urinal Urinal # Voids 5 # Bowel Movements 350 - Labs CBC & Chem 7: 07/14/21 07:40 07/14/21 07:40 Labs: Abnormal Lab Results - Last 24 Hours (Table) 07/14/21 07/14/21 07/14/21 Range/Units 07:40 07:40 11:38 RBC 2.58 L (4.30-5.90) m/uL Hgb 7.7 L (13.0-17.5) gm/dL Hct 25.1 L (39.0-53.0) % MCHC 30.8 L (31.0-37.0) g/dL RDW 15.9 H (11.5-15.5) % Lymphocytes # 0.7 L (1.0-4.8) k/uL Sodium 132 L (137-145) mmol/L Carbon Dioxide 20 L (22-30) mmol/L Creatinine 2.24 H (0.66-1.25) mg/dL POC Glucose (mg/dL) 108 H (75-99) mg/dL Calcium 8.0 L (8.4-10.2) mg/dL Phosphorus 5.0 H (2.5-4.5) mg/dL Alkaline Phosphatase 196 H (38-126) U/L Total Protein 6.1 L (6.3-8.2) g/dL Albumin 2.4 L (3.5-5.0) g/dL
[2021-07-14 15:57] LABS: Glucose,Whole Blood 90 mg/dL (75-99)
[2021-07-14] MEDS ORDERED: 1: MVI, ADULT NO.4 WITH VIT K 10 ML, TRACE (CONC-1ML/DOSE) 1 ML, PARENTERAL ELECTROLYTES IV SCH ×4 (18:00)
[2021-07-14 20:37] LABS: Glucose,Whole Blood 94 mg/dL (75-99)
[2021-07-14] MEDS: MELATONIN 3 MG TABLET PO SCH (21:30)
--- NOTE | 2021-07-14 21:40 | P.PN ---
Subjective Progress Note Date: 07/14/21 Principal diagnosis: Abdominal wound infection Patient is 41 year male with a past medical history significant for Crohn's disease in this patient who recently did have a laparotomy for abdominal abscess, no readmitted to the hospital with abdominal pain and concern for abdominal wound dehiscence and possible infection. Patient was taken to the OR 06/21/2021 patient is status post laparotomy right colectomy and ileostomy and drainage of abdominal abscess, I was asked to reevaluate the patient by the medical team on 07/07/2021 for adjustment of his antibiotic On today's evaluation that is 07/14/2021, the patient remains to be afebrile, the patient denies chest pain shortness of breath or cough. The patient abdominal pain is controlled and oral intake has improved denies any vomiting did have output in his ostomy Objective - Vital Signs Vital signs: Vital Signs Temp 98.2 F 07/14/21 08:00 Pulse 59 L 07/14/21 08:00 Resp 18 07/14/21 08:00 BP 119/79 07/14/21 08:00 Pulse Ox 98 07/14/21 08:00 Intake & Output 07/13/21 07/14/21 07/14/21 18:59 06:59 18:59 Intake Total 236 Output Total 20 200 410 Balance -20 -200 -174 Weight 110.7 kg Intake: Oral 236 Output: Drainage 20 10 Abdomen 20 10 Urine 400 Stool 200 Other: Voiding Method Urinal Urinal # Voids 5 # Bowel Movements 350 - Exam GENERAL DESCRIPTION:[ Patient is awake and alert in no distress] HEENT: [Oral mucosa is dry and no pharyngeal erythema] RESPIRATORY SYSTEM: [Unlabored breathing decreased. The base] CARDIA VASCULAR SYSTEM: [S1-S2 regular rate and rhythm no murmur] GI: [Abdominal soft midline abdominal wound dressing is intact, ADRIAN drain did have some purulent drainage EXTREMITIES: [No edema feet] - Labs CBC & Chem 7: 07/14/21 07:40 07/14/21 07:40 Labs: Abnormal Lab Results - Last 24 Hours (Table) 07/14/21 07/14/21 Range/Units 07:40 07:40 RBC 2.58 L (4.30-5.90) m/uL Hgb 7.7 L (13.0-17.5) gm/dL Hct 25.1 L (39.0-53.0) % MCHC 30.8 L (31.0-37.0) g/dL RDW 15.9 H (11.5-15.5) % Lymphocytes # 0.7 L (1.0-4.8) k/uL Sodium 132 L (137-145) mmol/L Carbon Dioxide 20 L (22-30) mmol/L Creatinine 2.24 H (0.66-1.25) mg/dL Calcium 8.0 L (8.4-10.2) mg/dL Phosphorus 5.0 H (2.5-4.5) mg/dL Alkaline Phosphatase 196 H (38-126) U/L Total Protein 6.1 L (6.3-8.2) g/dL Albumin 2.4 L (3.5-5.0) g/dL Assessment and Plan (1) Incisional infection Current Visit: Yes Status: Acute Code(s): T81.49XA - INFECTION FOLLOWING A PROCEDURE, OTHER SURGICAL SITE, INIT SNOMED Code(s): 12137705 Plan: 1-patient admitted to the hospital with abdominal pain with abdominal incision dehiscence and concern for possible deep infection, and this patient who is status post exploratory laparotomy status post right colectomy and small bowel resection ileostomy and drainage of the abscess, no OR cultures were done superficial abdominal cultures showed E. coli and anaerobes, patient is current ly covered with Rocephin and Flagyl with the option of either oral versus IV antibiotics on discharge, depending Upon the clinical response Time with Patient: Less than 30
[2021-07-14] MEDS: MIRTAZAPINE 15 MG TAB PO SCH (22:42)
[2021-07-15] MEDS: SODIUM CHLORIDE 0.9% 1,000 ML IV SCH ×2 (05:30→19:54)
[2021-07-15 06:47] LABS: Glucose,Whole Blood 92 mg/dL (75-99)
[2021-07-15] MEDS: INSULIN ASPART (NovoLOG) 100 UNIT/ML VIAL SQ SCH ×4 (07:21→20:56)
[2021-07-15] MEDS: ENOXAPARIN 40 MG/0.4 ML SYRINGE SQ SCH (07:31)
[2021-07-15] MEDS: traMADol 50 MG TAB PO SCH ×3 (07:32→19:15)
[2021-07-15] MEDS: PANTOPRAZOLE 40 MG TABLET PO SCH (07:32)
[2021-07-15] MEDS: metroNIDAZOLE 500 MG TAB PO SCH ×3 (07:32→21:01)
--- NOTE | 2021-07-15 09:36 | P.PN ---
Progress Note - Text Progress Note Date: 07/15/21 Patient states he feels overall better. He is still weak. He has trouble getting out of bed. On exam vital signs are stable. Abdomen is soft. Wound is healing. Retention site sutures are clean except for the one next to the ileostomy which does have some mild purulent drainage. His ADRIAN drain quality has increased from milky brown to small amount of purulent fluid. Status post small bowel resection and takedown of ileocolonic anastomosis. With ileostomy. Patient slowly improving. We hopefully will anticipate discharge or inpatient rehab next week.
--- NOTE | 2021-07-15 10:08 | P.PN ---
Subjective Patient is seen in follow-up for acute kidney injury. Renal function slowly improving. Creatinine 2.4 yesterday. Oral intake also improved. Receiving IV fluids. No active complaints. Vital signs are stable. General: The patient appeared well nourished and normally developed. HEENT: Head exam is unremarkable. LUNGS: Breath sounds decreased. HEART: Rate and Rhythm are regular. ABDOMEN: Nontender. No distention. EXTREMITITES: No edema. Objective - Vital Signs Vital signs: Vital Signs Temp 98.1 F 07/15/21 07:45 Pulse 72 07/15/21 07:45 Resp 18 07/15/21 07:45 BP 136/70 07/15/21 07:45 Pulse Ox 97 07/15/21 07:45 Intake & Output 07/14/21 07/15/21 07/15/21 18:59 06:59 18:59 Intake Total 828 296 Output Total 970 850 200 Balance -142 -554 -200 Intake: Oral 828 296 Output: Drainage 20 Abdomen 20 Urine 950 650 Stool 200 200 Other: Voiding Method Urinal Urinal Urinal # Voids 1 - Labs CBC & Chem 7: 07/14/21 07:40 07/14/21 07:40 Labs: Abnormal Lab Results - Last 24 Hours (Table) 07/14/21 Range/Units 11:38 POC Glucose (mg/dL) 108 H (75-99) mg/dL Assessment and Plan Plan: Assessment: 1. Acute kidney injury secondary to nephrotoxic ATN from vancomycin toxicity. Renal function slowly improving. Creatinine 2.4 yesterday. UA benign. No hydronephrosis noted on kidney ultrasound. 2. Abdominal abscess status post exploratory laparotomy with right colectomy and small bowel resection and ileostomy no hydronephrosis noted on CAT scan.. On antibiotics. 3. Hyperkalemia secondary to acute kidney injury. Resolved. 4. Crohn's disease. 5. Anemia. Iron deficiency noted. 6. Mild hypomagnesemia from poor intake. Replaced. Better. Plan: Maintain IV fluids. Encouraged oral intake. Hold off on IV iron due to abdominal infection. Continue to monitor renal function and urine output. Avoid nephrotoxins. Morning labs pending.
[2021-07-15 11:02] LABS: African American GFR (CKD) 41.6 (60.0-200.0); Anion Gap 13.6 mmol/L (10.00-18.00); BUN/Creat Ratio 6.91 Ratio (12.00-20.00); Blood Urea Nitrogen 15.2 mg/dL (9.0-27.0); Calcium 7.9 mg/dL (8.7-10.3); Carbon Dioxide 20.4 mmol/L (20.0-27.5); Magnesium 2.2 mg/dL (1.5-2.4); Non-African American GFR(CKD) 35.9 (60.0-200.0); Potassium 3.9 mmol/L (3.5-5.5)
--- NOTE | 2021-07-15 11:27 | P.PN ---
Subjective 41-year-old male with history of Crohn's disease and abscess had a ileocolectomy on 05/28/2021 subsequently discharged to [facility] patient rehabitation patient won't cultures during previous hospital physicians showed E. coli and Keke patient to complete the treatment with Augmentin and Diflucan. I did evaluate this patient at [facility] rehabilitation at that time I obtain the cultures as there was concern about new infection in the surgical site area will obtain those cultures, infectious disease evaluated the patient there. Patient was subsequently discharged. came in with the increase the pain and infection of the surgical site area now. Patient had a CT of the abdomen which is concerning for ileus although patient was having normal bowel movements. Patient is hyponatremic. Patient will sugars are highly elevated lower obtain hemoglobin and patient was started on insulin regimen along with sliding scale. Subjective: 07/08/2021 This is a pleasant 41 years old male who presents with surgical site infection with bowel perforation status post exploratory laparotomy and small bowel resection with right colectomy and ileostomy on the right side, patient had significant infection and recurrent word several and prolonged antibiotic therapy. Currently he was on ceftriaxone and Flagyl, vancomycin was already discontinued, however level today was elevated at 32 and there is evidence of trending up creatinine from baseline of 0.7-0.9 up to 1.6 yesterday and 2.27 today. No incidents, no evidence of hypertension, no recent IV contrast and patient is currently on normal saline at 75 mL/h. He had Wheeler catheter previously which was discontinued, discussed with the bedside nurse Hesham to check bladder scan. Blanking Machine Operator team were consulted. Several consultants on the case included surgery primary team, infectious disease team. Patient himself is fully awake and oriented looks calm, no distress, no symptoms. No abdominal pain and ileostomy bag is working, however his eating is marginal. Patient encouraged to eat more 07/09/2021 Patient clinically looks similar to yesterday, no other new complaints. He still has poor oral and take even to food brought from THE HOSPITAL, PART OF IT IS A DUE TO NAUSEA AND CONTROLLED WITH ZOFRAN. DAILY REGLAN HAS BEEN ADDED NEEDED. ALSO [employer] SUPERINTENDENT TEAM FOLLOWING HIM CLOSELY FOR HIS ACUTE KIDNEY INJURY SUSPECTED SECONDARY TO VANCOMYCIN TOXICITY currently his IV vancomycin is put on hold and his creatinine is slightly elevated at 2.4 compared to 2.27 yesterday. The patient is making good urine output. Checked bladder scan 35 mL only. Regarding his wound infection is currently covered with ceftriaxone and Flagyl as well as normal saline 75 mL/h. His ileostomy bag is working. No abdominal pain 07/09/2021 Patient is still with poor appetite, no nausea contributing to his low appetite today. I discussed with him and bedside nurse to try soft diet and he agrees. Vitals stable. Creatinine is stable 2.4-like yesterday secondary to vancomycin toxicity. Patient continued currently normal saline 75 mL/h Also continued with ceftriaxone and Flagyl for his infected wound area. Subjective: Resume in the care of the patient again on 07/13/2021 Patient still with low appetite and some nausea and has not eaten much and TPN started by surgery team. He looks somewhat depressed and primary team recommended starting antidepressant, psych T Joan consulted and he was placed on Remeron 15 mg at bedtime which could be increased to 30 mg tomorrow. His creatinine is still the same at 2.3, suspected secondary to vancomycin since toxicity. Currently he is on different antibiotics of ceftriaxone and Flagyl. Renal ultrasound showing no hydronephrosis or other significant abnormality to explain the patient's symptoms or abnormalities. There is some gentle hydration. Also he is on ceftriaxone and Flagyl with infectious disease team on the case. 06/13/2021 Patient did not cut the PICC line and did not start TPN, and he said he is encouraged himself to eat despite his low appetite. No other new complaints and is hemodynamically stable. Creatinine is stable at 2.24. He remains on ceftriaxone, Flagyl, normal saline at 75 mL/h Yesterday psychiatrist to evaluate the patient and start him on romeron to help him with depression 06/14/2021 Patient is clinically doing well. He is eating his diet except for breakfast as he is not a breakfast Srini guarded as he describes. No nausea vomiting, no worsening abdominal pain and his ileostomy bag is working. He refuses to take romeron stating that his depression is improved after he talked to his and he has good spirits and he does not want to take any more medication. His creatinine is stable at 2.2, patient updated and all his questions were answered. Objective - Vital Signs Vital signs: Vital Signs Temp 98.1 F 07/15/21 07:45 Pulse 72 07/15/21 07:45 Resp 18 07/15/21 07:45 BP 136/70 07/15/21 07:45 Pulse Ox 97 07/15/21 07:45 Intake & Output 07/14/21 07/15/21 07/15/21 18:59 06:59 18:59 Intake Total 828 296 Output Total 970 850 200 Balance -142 -554 -200 Intake: Oral 828 296 Output: Drainage 20 Abdomen 20 Urine 950 650 Stool 200 200 Other: Voiding Method Urinal Urinal Urinal # Voids 1 - Exam -GENERAL: The patient is alert and oriented x3, not in any acute distress. Obese HEENT: Pupils are round and equally reacting to light. EOMI. No scleral icterus. No conjunctival pallor. Normocephalic, atraumatic. No pharyngeal erythema. No thyromegaly. CARDIOVASCULAR: S1 and S2 present. No murmurs, rubs, or gallops. PULMONARY: Chest is clear to auscultation, no wheezing or crackles. -ABDOMEN: Soft, nontender, nondistended, normoactive bowel sounds. No palpable organomegaly. Midline abdominal wound is healing and dressing is in place. Right lower ileostomy with evidence of stool MUSCULOSKELETAL: No joint swelling or deformity. EXTREMITIES: No cyanosis, clubbing, or pedal edema. NEUROLOGICAL: Gross neurological examination did not reveal any focal deficits. SKIN: No rashes. no petechiae. - Labs CBC & Chem 7: 07/14/21 07:40 07/15/21 04:40 Labs: Abnormal Lab Results - Last 24 Hours (Table) 07/14/21 Range/Units 11:38 POC Glucose (mg/dL) 108 H (75-99) mg/dL Assessment and Plan Assessment: -Bowel perforation had ileus on admission. Status post laparotomy and small bowel resection, right colectomy ileostomy . Patient is presently on ceftria xone and Flagyl. ID team on the case as well as surgery primary team. Patient still has poor oral intake secondary to his nausea. Reglan was added today as needed. TPN has been started -Acute kidney injury, vancomycin level be contributing. Continue with IV fluid, nephrology consult. Discontinue nephrotoxic substance -Elements of depression, psychiatric status patient on Dennis -hypertension. -History of Crohn's disease status post redo colectomy a few weeks ago -Leukocytosis , improved DVT prophylaxis: Lovenox GI prophylaxis: Protonix
[2021-07-15 11:37] LABS: Glucose,Whole Blood 93 mg/dL (75-99)
[2021-07-15] MEDS ORDERED: ALPRAZolam 0.5 MG TAB PO STA (14:56)
[2021-07-15] MEDS ORDERED: ALPRAZolam 0.5 MG TAB PO PRN (15:13)
[2021-07-15 16:34] LABS: Glucose,Whole Blood 111 mg/dL (75-99)
[2021-07-15] MEDS: ONDANSETRON 4 MG/2 ML VIAL IVP PRN (17:19)
[2021-07-15] MEDS ORDERED: KETOROLAC 30 MG/ML 1 ML VIAL IVP ONE (17:52)
[2021-07-15] MEDS: MIRTAZAPINE 15 MG TAB PO SCH (19:57)
[2021-07-15 20:40] LABS: Glucose,Whole Blood 115 mg/dL (75-99)
[2021-07-15] MEDS: MELATONIN 3 MG TABLET PO SCH (21:03)
--- NOTE | 2021-07-15 23:38 | P.PN ---
Subjective Progress Note Date: 07/15/21 Principal diagnosis: Abdominal wound infection Patient is 41 year male with a past medical history significant for Crohn's disease in this patient who recently did have a laparotomy for abdominal abscess, no readmitted to the hospital with abdominal pain and concern for abdominal wound dehiscence and possible infection. Patient was taken to the OR 06/21/2021 patient is status post laparotomy right colectomy and ileostomy and drainage of abdominal abscess, I was asked to reevaluate the patient by the medical team on 07/07/2021 for adjustment of his antibiotic On today's evaluation that is 07/15/2021, the patient denies having any fever or any chills, the patient denies chest pain shortness of breath or cough. The patient abdominal pain is controlled and oral intake has improved, the patient denies any vomiting did have output in his ostomy Objective - Vital Signs Vital signs: Vital Signs Temp 98.1 F 07/15/21 07:45 Pulse 72 07/15/21 07:45 Resp 18 07/15/21 07:45 BP 136/70 07/15/21 07:45 Pulse Ox 97 07/15/21 07:45 Intake & Output 07/14/21 07/15/21 07/15/21 18:59 06:59 18:59 Intake Total 828 296 Output Total 773 075 9094 Balance -142 554 -1000 Intake: Oral 828 296 Output: Drainage 20 Abdomen 20 Urine 950 650 500 Stool 200 500 Other: Voiding Method Urinal Urinal Urinal # Voids 1 - Exam GENERAL DESCRIPTION:[ Patient is awake and alert in no distress] HEENT: [Oral mucosa is dry and no pharyngeal erythema] RESPIRATORY SYSTEM: [Unlabored breathing decreased. The base] CARDIA VASCULAR SYSTEM: [S1-S2 regular rate and rhythm no murmur] GI: [Abdominal soft midline abdominal wound dressing is intact, ADRIAN drain did have some purulent drainage EXTREMITIES: [No edema feet] - Labs CBC & Chem 7: 07/14/21 07:40 07/15/21 04:40 Labs: Abnormal Lab Results - Last 24 Hours (Table) 07/15/21 Range/Units 04:40 Creatinine 2.2 H (0.6-1.5) mg/dL Est GFR (CKD-EPI)AfAm 41.6 L (60.0-200.0) Est GFR (CKD-EPI)NonAf 35.9 L (60.0-200.0) BUN/Creatinine Ratio 6.91 L (12.00-20.00) Ratio Calcium 7.9 L (8.7-10.3) mg/dL Assessment and Plan (1) Incisional infection Current Visit: Yes Status: Acute Code(s): T81.49XA - INFECTION FOLLOWING A PROCEDURE, OTHER SURGICAL SITE, INIT SNOMED Code(s): 35118889 Plan: 1-patient admitted to the hospital with abdominal pain with abdominal incision dehiscence and concern for possible deep infection, and this patient who is status post exploratory laparotomy status post right colectomy and small bowel resection ileostomy and drainage of the abscess, no OR cultures were done superficial abdominal cultures showed E. coli and anaerobes, patient has shown some clinical improvement did have a normal white count and no fever currently on Rocephin and Flagyl will transition to oral antibiotic on discharge Time with Patient: Less than 30
[2021-07-16] MEDS: traMADol 50 MG TAB PO SCH ×5 (01:45→23:37)
[2021-07-16 07:00] LABS: Glucose,Whole Blood 104 mg/dL (75-99)
[2021-07-16] MEDS: INSULIN ASPART (NovoLOG) 100 UNIT/ML VIAL SQ SCH ×4 (08:11→21:55)
[2021-07-16 09:05] LABS: African American GFR (CKD) 43.5 (60.0-200.0); Anion Gap 15.3 mmol/L (10.00-18.00); BUN/Creat Ratio 7.59 Ratio (12.00-20.00); Blood Urea Nitrogen 16.1 mg/dL (9.0-27.0); Calcium 8.2 mg/dL (8.7-10.3); Carbon Dioxide 17.8 mmol/L (20.0-27.5); Magnesium 1.9 mg/dL (1.5-2.4); Non-African American GFR(CKD) 37.5 (60.0-200.0); Potassium 3.9 mmol/L (3.5-5.5)
--- NOTE | 2021-07-16 09:09 | P.PN ---
Subjective Progress Note Date: 07/16/21 Principal diagnosis: This is a 41-year-old male, seen in consultation because of acute kidney injury secondary to abdominal abscess from Crohn's disease underwent exploratory lapar otomy colectomy and ileostomy and has a ADRIAN drainage. He is on vancomycin and the level was high, he is been off of vancomycin now. Has fair appetite no nausea vomiting. Vital signs are stable 24-hour intake is, not recorded and output is 1680, urine output is 900 mL Objective - Vital Signs Vital signs: Vital Signs Temp 98.0 F 07/16/21 08:00 Pulse 74 07/16/21 08:20 Resp 15 07/16/21 08:20 BP 113/75 07/16/21 08:00 Pulse Ox 97 07/16/21 08:00 Intake & Output 07/15/21 07/16/21 07/16/21 18:59 06:59 18:59 Output Total 1010 670 250 Balance -1010 -670 -250 Weight 110.7 kg Output: Drainage 10 20 Abdomen 10 20 Urine 500 400 Stool 500 250 250 Other: Voiding Method Urinal Urinal Urinal # Voids 6 1 # Bowel Movements 3 On examination awake alert oriented comfortable No JVP no facial asymmetry Lungs are clear to auscultation fair air entry bilaterally Heart sounds unremarkable for any murmur rub gallop Abdomen soft ileostomy on the right, ADRIAN drain on the right Extremity examination reveals no edema Neurologically awake alert oriented - Labs CBC & Chem 7: 07/14/21 07:40 07/15/21 04:40 Labs: Abnormal Lab Results - Last 24 Hours (Table) 07/15/21 07/15/21 07/15/21 Range/Units 04:40 16:31 20:35 Creatinine 2.2 H (0.6-1.5) mg/dL Est GFR (CKD-EPI)AfAm 41.6 L (60.0-200.0) Est GFR (CKD-EPI)NonAf 35.9 L (60.0-200.0) BUN/Creatinine Ratio 6.91 L (12.00-20.00) Ratio POC Glucose (mg/dL) 111 H 115 H (75-99) mg/dL Calcium 7.9 L (8.7-10.3) mg/dL 07/16/21 Range/Units 06:58 Creatinine (0.6-1.5) mg/dL Est GFR (CKD-EPI)AfAm (60.0-200.0) Est GFR (CKD-EPI)NonAf (60.0-200.0) BUN/Creatinine Ratio (12.00-20.00) Ratio POC Glucose (mg/dL) 104 H (75-99) mg/dL Calcium (8.7-10.3) mg/dL Assessment and Plan Assessment: Impression 1. Acute kidney injury secondary to combination of vancomycin, sepsis from abdominal abscess. Creatinine stable and urine output is adequate. 2. Mild degree of gap and non-gap acidosis from GI losses as well as acute kidney injury 3. Crohn's disease, status post abdominal abscess, expiratory laparotomy and colectomy and ileostomy with a ADRIAN drainage. 4. Anemia hemoglobin 7.7 Recommendation 1. Change IV fluids to lactated Ringer's and increase rate to 125 an hour. This is because the output seems to be more than intake but does not record I and O 2. Start bicarbonate orally 650 4 times a day 3. Watch blood pressure, electrolytes urine output.
[2021-07-16] MEDS: ENOXAPARIN 40 MG/0.4 ML SYRINGE SQ SCH (09:33)
[2021-07-16] MEDS: PANTOPRAZOLE 40 MG TABLET PO SCH (09:34)
[2021-07-16] MEDS: metroNIDAZOLE 500 MG TAB PO SCH ×3 (09:34→21:56)
--- NOTE | 2021-07-16 11:09 | P.PN ---
Subjective 41-year-old male with history of Crohn's disease and abscess had a ileocolectomy on 05/28/2021 subsequently discharged to [facility] patient rehabitation patient won't cultures during previous hospital physicians showed E. coli and Keke patient to complete the treatment with Augmentin and Diflucan. I did evaluate this patient at [facility] rehabilitation at that time I obtain the cultures as there was concern about new infection in the surgical site area will obtain those cultures, infectious disease evaluated the patient there. Patient was subsequently discharged. came in with the increase the pain and infection of the surgical site area now. Patient had a CT of the abdomen which is concerning for ileus although patient was having normal bowel movements. Patient is hyponatremic. Patient will sugars are highly elevated lower obtain hemoglobin and patient was started on insulin regimen along with sliding scale. Subjective: 07/08/2021 This is a pleasant 41 years old male who presents with surgical site infection with bowel perforation status post exploratory laparotomy and small bowel resection with right colectomy and ileostomy on the right side, patient had significant infection and recurrent word several and prolonged antibiotic therapy. Currently he was on ceftriaxone and Flagyl, vancomycin was already discontinued, however level today was elevated at 32 and there is evidence of trending up creatinine from baseline of 0.7-0.9 up to 1.6 yesterday and 2.27 today. No incidents, no evidence of hypertension, no recent IV contrast and patient is currently on normal saline at 75 mL/h. He had Wheeler catheter previously which was discontinued, discussed with the bedside nurse Hesham to check bladder scan. [facility] team were consulted. Several consultants on the case included surgery primary team, infectious disease team. Patient himself is fully awake and oriented looks calm, no distress, no symptoms. No abdominal pain and ileostomy bag is working, however his eating is marginal. Patient encouraged to eat more 07/09/2021 Patient clinically looks similar to yesterday, no other new complaints. He still has poor oral and take even to food brought from [facility], PART OF IT IS A DUE TO NAUSEA AND CONTROLLED WITH ZOFRAN. DAILY REGLAN HAS BEEN ADDED NEEDED. ALSO OPERATING ROOM TECH TEAM FOLLOWING HIM CLOSELY FOR HIS ACUTE KIDNEY INJURY SUSPECTED SECONDARY TO VANCOMYCIN TOXICITY currently his IV vancomycin is put on hold and his creatinine is slightly elevated at 2.4 compared to 2.27 yesterday. The patient is making good urine output. Checked bladder scan 35 mL only. Regarding his wound infection is currently covered with ceftriaxone and Flagyl as well as normal saline 75 mL/h. His ileostomy bag is working. No abdominal pain 07/09/2021 Patient is still with poor appetite, no nausea contributing to his low appetite today. I discussed with him and bedside nurse to try soft diet and he agrees. Vitals stable. Creatinine is stable 2.4-like yesterday secondary to vancomycin toxicity. Patient continued currently normal saline 75 mL/h Also continued with ceftriaxone and Flagyl for his infected wound area. Subjective: Resume in the care of the patient again on 07/13/2021 Patient still with low appetite and some nausea and has not eaten much and TPN started by surgery team. He looks somewhat depressed and primary team recommended starting antidepressant, psych Raghu Franco consulted and he was placed on Remeron 15 mg at bedtime which could be increased to 30 mg tomorrow. His creatinine is still the same at 2.3, suspected secondary to vancomycin since toxicity. Currently he is on different antibiotics of ceftriaxone and Flagyl. Renal ultrasound showing no hydronephrosis or other significant abnormality to explain the patient's symptoms or abnormalities. There is some gentle hydration. Also he is on ceftriaxone and Flagyl with infectious disease team on the case. 07/14/2021 Patient did not cut the PICC line and did not start TPN, and he said he is encouraged himself to eat despite his low appetite. No other new complaints and is hemodynamically stable. Creatinine is stable at 2.24. He remains on ceftriaxone, Flagyl, normal saline at 75 mL/h Yesterday psychiatrist to evaluate the patient and start him on romeron to help him with depression 07/15/2021 Patient is clinically doing well. He is eating his diet except for breakfast as he is not a breakfast Srini guarded as he describes. No nausea vomiting, no worsening abdominal pain and his ileostomy bag is working. He refuses to take romeron stating that his depression is improved after he talked to his and he has good spirits and he does not want to take any more medication. His creatinine is stable at 2.2, patient updated and all his questions were answered. 07/16/2021 Patient clinically still improving gradually and slowly. He is encouraged himself to eat. No other specific new complaint. Creatinine slightly trending down to 0.1 today. [facility] team on the case, he was placed or finger lactate 1 25 mL/h today instead of normal saline 75 mL/h. Continue on ceftriaxone and Flagyl. Objective - Vital Signs Vital signs: Vital Signs Temp 98.0 F 07/16/21 08:00 Pulse 74 07/16/21 08:20 Resp 15 07/16/21 08:20 BP 113/75 07/16/21 08:00 Pulse Ox 97 07/16/21 08:00 Intake & Output 07/15/21 07/16/21 07/16/21 18:59 06:59 18:59 Output Total 1010 670 250 Balance -1010 -670 -250 Weight 110.7 kg Output: Drainage 10 20 Abdomen 10 20 Urine 500 400 Stool 500 250 250 Other: Voiding Method Urinal Urinal Urinal # Voids 6 1 # Bowel Movements 3 - Exam -GENERAL: The patient is alert and oriented x3, not in any acute distress. Obese HEENT: Pupils are round and equally reacting to light. EOMI. No scleral icterus. No conjunctival pallor. Normocephalic, atraumatic. No pharyngeal erythema. No thyromegaly. CARDIOVASCULAR: S1 and S2 present. No murmurs, rubs, or gallops. PULMONARY: Chest is clear to auscultation, no wheezing or crackles. -ABDOMEN: Soft, nontender, nondistended, normoactive bowel sounds. No palpable organomegaly. Midline abdominal wound is healing and dressing is in place. Right lower ileostomy with evidence of stool MUSCULOSKELETAL: No joint swelling or deformity. EXTREMITIES: No cyanosis, clubbing, or pedal edema. NEUROLOGICAL: Gross neurological examination did not reveal any focal deficits. SKIN: No rashes. no petechiae. - Labs CBC & Chem 7: 07/14/21 07:40 07/16/21 05:29 Labs: Abnormal Lab Results - Last 24 Hours (Table) 07/15/21 07/15/21 07/15/21 Range/Units 04:40 16:31 20:35 Carbon Dioxide (20.0-27.5) mmol/L Creatinine 2.2 H (0.6-1.5) mg/dL Est GFR (CKD-EPI)AfAm 41.6 L (60.0-200.0) Est GFR (CKD-EPI)NonAf 35.9 L (60.0-200.0) BUN/Creatinine Ratio 6.91 L (12.00-20.00) Ratio POC Glucose (mg/dL) 111 H 115 H (75-99) mg/dL Calcium 7.9 L (8.7-10.3) mg/dL 07/16/21 07/16/21 Range/Units 05:29 06:58 Carbon Dioxide 17.8 L (20.0-27.5) mmol/L Creatinine 2.1 H (0.6-1.5) mg/dL Est GFR (CKD-EPI)AfAm 43.5 L (60.0-200.0) Est GFR (CKD-EPI)NonAf 37.5 L (60.0-200.0) BUN/Creatinine Ratio 7.59 L (12.00-20.00) Ratio POC Glucose (mg/dL) 104 H (75-99) mg/dL Calcium 8.2 L (8.7-10.3) mg/dL Assessment and Plan Assessment: -Bowel perforation had ileus on admission. Status post laparotomy and small bowel resection, right colectomy ileostomy . Patient is presently on ceftriaxone and Flagyl. ID team on the case as well as surgery primary team. Patient still has poor oral intake secondary to his nausea. Reglan was added today as needed. TPN has been started -Acute kidney injury, vancomycin level be contributing. Continue with IV fluid, nephrology consult. Discontinue nephrotoxic substance -Elements of depression, psychiatric status patient on Dennis -hypertension. -History of Crohn's disease status post redo colectomy a few weeks ago -Leukocytosis , improved DVT prophylaxis: Lovenox GI prophylaxis: Protonix
[2021-07-16 11:54] LABS: Glucose,Whole Blood 99 mg/dL (75-99)
[2021-07-16] MEDS: SODIUM BICARBONATE TAB 650 MG TAB PO SCH ×3 (14:28→21:56)
--- NOTE | 2021-07-16 15:54 | P.PN ---
Subjective Progress Note Date: 07/16/21 CHIEF COMPLAINT: Complicated Crohn's disease, status post ileostomy HISTORY OF PRESENT ILLNESS: The patient is a 41-year-old male status post small bowel resection, right colectomy with ileostomy, 06/21/2021 due to Crohn's disease. He is on antibiotics. He is tolerating diet. He reports losing 80 p ounds in the last 2 months since he has been in the hospital. ROS: No fevers or chills. No new chest pain. Has new depression. Morbid obesity, BMI 36.0 PHYSICAL EXAM: VITAL SIGNS: Reviewed CONSTITUTIONAL: Well developed and in no acute distress. EYES: Conjuctivae without sclera icterus. Extraocular movements grossly intact. HEAD, EARS, NOSE, THROAT: Moist buccal mucosa. Head is atraumatic, normocephalic. No nasal drainage. RESPIRATORY: Non-labored respirations and equal bilateral excursions. CARDIOVASCULAR: Palpable 2+ radial pulses. ABDOMEN: Dressing dry and intact. Ostomy patent MUSCULOSKELETAL: No gross deformity of the lower extremities noted. No clubbing. No cyanosis. SKIN: Good skin turgor. Well perfused. NEUROLOGIC: Cranial nerves II through XII grossly intact. No focal or lateralizing signs. PSYCH: Alert to person place and time. CLINICAL LABS: Reviewed. WBC 7.3. Anemia, hemoglobin 7.7 ASSESSMENT: 1. Crohn's disease status post right colectomy ileostomy PLAN: 1. Diet as tolerated 2. Anticipated rehab upon discharge 3. Dietary goals reviewed including increase protein intake for optimal recovery. Objective - Vital Signs Vital signs: Vital Signs Temp 98.0 F 07/16/21 08:00 Pulse 74 07/16/21 08:20 Resp 15 07/16/21 08:20 BP 113/75 07/16/21 08:00 Pulse Ox 97 07/16/21 08:00 Intake & Output 07/15/21 07/16/21 07/16/21 18:59 06:59 18:59 Output Total 1010 670 250 Balance -1010 -670 -250 Weight 110.7 kg Output: Drainage 10 20 Abdomen 10 20 Urine 500 400 Stool 500 250 250 Other: Voiding Method Urinal Urinal Urinal # Voids 6 1 # Bowel Movements 3 - Labs CBC & Chem 7: 07/14/21 07:40 07/16/21 05:29 Labs: Abnormal Lab Results - Last 24 Hours (Table) 07/15/21 07/15/21 07/16/21 Range/Units 16:31 20:35 05:29 Carbon Dioxide 17.8 L (20.0-27.5) mmol/L Creatinine 2.1 H (0.6-1.5) mg/dL Est GFR (CKD-EPI)AfAm 43.5 L (60.0-200.0) Est GFR (CKD-EPI)NonAf 37.5 L (60.0-200.0) BUN/Creatinine Ratio 7.59 L (12.00-20.00) Ratio POC Glucose (mg/dL) 111 H 115 H (75-99) mg/dL Calcium 8.2 L (8.7-10.3) mg/dL 07/16/21 Range/Units 06:58 Carbon Dioxide (20.0-27.5) mmol/L Creatinine (0.6-1.5) mg/dL Est GFR (CKD-EPI)AfAm (60.0-200.0) Est GFR (CKD-EPI)NonAf (60.0-200.0) BUN/Creatinine Ratio (12.00-20.00) Ratio POC Glucose (mg/dL) 104 H (75-99) mg/dL Calcium (8.7-10.3) mg/dL
[2021-07-16 16:19] LABS: Glucose,Whole Blood 94 mg/dL (75-99)
[2021-07-16] MEDS: METOCLOPRAMIDE 5 MG/ML 2 ML VIAL IVP PRN (16:41)
[2021-07-16] MEDS ORDERED: TEMAZEPAM 15 MG CAP PO PRN (20:34)
[2021-07-16] MEDS: LACTATED RINGERS 1,000 ML IV SCH ×2 (21:28→23:39)
[2021-07-16 21:45] LABS: Glucose,Whole Blood 98 mg/dL (75-99)
[2021-07-16] MEDS: MELATONIN 3 MG TABLET PO SCH (21:56)
[2021-07-16] MEDS: MIRTAZAPINE 15 MG TAB PO SCH (21:56)
[2021-07-17 06:49] LABS: Glucose,Whole Blood 96 mg/dL (75-99)
--- NOTE | 2021-07-17 07:41 | P.PN ---
Subjective Progress Note Date: 07/17/21 Principal diagnosis: This is a 41-year-old male, seen in consultation because of acute kidney injury secondary to abdominal abscess from Crohn's disease underwent exploratory lapar otomy colectomy and ileostomy and has a ADRIAN drainage. He is on vancomycin and the level was high, he is been off of vancomycin now. Has fair appetite no nausea vomiting. Overall he feels better Vital signs are stable 24-hour intake is 1496 and output is 21 45 mL Objective - Vital Signs Vital signs: Vital Signs Temp 98.8 F 07/17/21 02:00 Pulse 84 07/17/21 02:00 Resp 15 07/17/21 02:00 BP 120/74 07/17/21 02:00 Pulse Ox 97 07/17/21 02:00 Intake & Output 07/16/21 07/17/21 07/17/21 18:59 06:59 18:59 Intake Total 1496 Output Total 775 1370 Balance 721 -1370 Intake: Oral 1496 Output: Drainage 5 20 Abdomen 5 20 Urine 1300 Stool 770 50 Other: Voiding Method Urinal Urinal # Voids 5 2 # Bowel Movements 1 1 On examination is awake alert oriented comfortable. HEENT exam no JVP no facial asymmetry Lungs are clear to auscultation good air entry bilaterally Heart sounds unremarkable for any murmur rub gallop Abdomen soft nontender ADRIAN drainage in with yellowish purulent material. Has an ostomy as well Extremity examination was no edema Neuro logically awake alert oriented. Patient states he was able to walk withou t any difficulty - Labs CBC & Chem 7: 07/14/21 07:40 07/16/21 05:29 Labs: Abnormal Lab Results - Last 24 Hours (Table) 07/16/21 Range/Units 05:29 Carbon Dioxide 17.8 L (20.0-27.5) mmol/L Creatinine 2.1 H (0.6-1.5) mg/dL Est GFR (CKD-EPI)AfAm 43.5 L (60.0-200.0) Est GFR (CKD-EPI)NonAf 37.5 L (60.0-200.0) BUN/Creatinine Ratio 7.59 L (12.00-20.00) Ratio Calcium 8.2 L (8.7-10.3) mg/dL Assessment and Plan Assessment: Impression 1. Acute kidney injury secondary to combination of vancomycin, sepsis from abdominal abscess. Creatinine peaked at 2.35 and 2.1 this morning and urine output is adequate. 2. Mild degree of gap and non-gap acidosis from GI losses as well as acute kidney injury. Started on sodium bicarb yesterday. Bicarb actually went down from 20-17.8. We'll watch 3. Crohn's disease, status post abdominal abscess, expiratory laparotomy and colectomy and ileostomy with a ADRIAN drainage. 4. Anemia hemoglobin 7.7 Recommendation 1. Continue IV IV lactated Ringer's 125 an hour. This is because the output seems to be more than intake but does not record I and O 2. Continue bicarbonate orally 650 4 times a day 3. Watch blood pressure, electrolytes urine output.
[2021-07-17] MEDS: ENOXAPARIN 40 MG/0.4 ML SYRINGE SQ SCH (07:58)
[2021-07-17] MEDS: traMADol 50 MG TAB PO SCH ×3 (07:59→18:13)
[2021-07-17] MEDS: metroNIDAZOLE 500 MG TAB PO SCH ×3 (08:00→21:23)
[2021-07-17] MEDS: SODIUM BICARBONATE TAB 650 MG TAB PO SCH ×4 (08:00→21:23)
[2021-07-17] MEDS: INSULIN ASPART (NovoLOG) 100 UNIT/ML VIAL SQ SCH ×4 (08:00→21:11)
[2021-07-17] MEDS: PANTOPRAZOLE 40 MG TABLET PO SCH (08:00)
[2021-07-17 11:19] LABS: Glucose,Whole Blood 97 mg/dL (75-99)
[2021-07-17] MEDS ORDERED: MELATONIN 5 MG TABLET PO PRN (11:56)
--- NOTE | 2021-07-17 11:59 | P.PN ---
Subjective 41-year-old male with history of Crohn's disease and abscess had a ileocolectomy on 05/28/2021 subsequently discharged to [facility] patient rehabitation patient won't cultures during previous hospital physicians showed E. coli and Keke patient to complete the treatment with Augmentin and Diflucan. I did evaluate this patient at [facility] rehabilitation at that time I obtain the cultures as there was concern about new infection in the surgical site area will obtain those cultures, infectious disease evaluated the patient there. Patient was subsequently discharged. came in with the increase the pain and infection of the surgical site area now. Patient had a CT of the abdomen which is concerning for ileus although patient was having normal bowel movements. Patient is hyponatremic. Patient will sugars are highly elevated lower obtain hemoglobin and patient was started on insulin regimen along with sliding scale. Subjective: 07/08/2021 This is a pleasant 41 years old male who presents with surgical site infection with bowel perforation status post exploratory laparotomy and small bowel resection with right colectomy and ileostomy on the right side, patient had significant infection and recurrent word several and prolonged antibiotic therapy. Currently he was on ceftriaxone and Flagyl, vancomycin was already discontinued, however level today was elevated at 32 and there is evidence of trending up creatinine from baseline of 0.7-0.9 up to 1.6 yesterday and 2.27 today. No incidents, no evidence of hypertension, no recent IV contrast and patient is currently on normal saline at 75 mL/h. He had Wheeler catheter previously which was discontinued, discussed with the bedside nurse Hesham to check bladder scan. Assistant [employer] Superintendent team were consulted. Several consultants on the case included surgery primary team, infectious disease team. Patient himself is fully awake and oriented looks calm, no distress, no symptoms. No abdominal pain and ileostomy bag is working, however his eating is marginal. Patient encouraged to eat more 07/09/2021 Patient clinically looks similar to yesterday, no other new complaints. He still has poor oral and take even to food brought from [facility]OS[facility], PART OF IT IS A DUE TO NAUSEA AND CONTROLLED WITH ZOFRAN. DAILY REGLAN HAS BEEN ADDED NEEDED. ALSO HOME EXTENSION AGENT TEAM FOLLOWING HIM CLOSELY FOR HIS ACUTE KIDNEY INJURY SUSPECTED SECONDARY TO VANCOMYCIN TOXICITY currently his IV vancomycin is put on hold and his creatinine is slightly elevated at 2.4 compared to 2.27 yesterday. The patient is making good urine output. Checked bladder scan 35 mL only. Regarding his wound infection is currently covered with ceftriaxone and Flagyl as well as normal saline 75 mL/h. His ileostomy bag is working. No abdominal pain 07/09/2021 Patient is still with poor appetite, no nausea contributing to his low appetite today. I discussed with him and bedside nurse to try soft diet and he agrees. Vitals stable. Creatinine is stable 2.4-like yesterday secondary to vancomycin toxicity. Patient continued currently normal saline 75 mL/h Also continued with ceftriaxone and Flagyl for his infected wound area. Subjective: Resume in the care of the patient again on 07/13/2021 Patient still with low appetite and some nausea and has not eaten much and TPN started by surgery team. He looks somewhat depressed and primary team recommended starting antidepressant, psych Raghu Franco consulted and he was placed on Remeron 15 mg at bedtime which could be increased to 30 mg tomorrow. His creatinine is still the same at 2.3, suspected secondary to vancomycin since toxicity. Currently he is on different antibiotics of ceftriaxone and Flagyl. Renal ultrasound showing no hydronephrosis or other significant abnormality to explain the patient's symptoms or abnormalities. There is some gentle hydration. Also he is on ceftriaxone and Flagyl with infectious disease team on the case. 07/14/2021 Patient did not cut the PICC line and did not start TPN, and he said he is encouraged himself to eat despite his low appetite. No other new complaints and is hemodynamically stable. Creatinine is stable at 2.24. He remains on ceftriaxone, Flagyl, normal saline at 75 mL/h Yesterday psychiatrist to evaluate the patient and start him on romeron to help him with depression 07/15/2021 Patient is clinically doing well. He is eating his diet except for breakfast as he is not a breakfast Srini guarded as he describes. No nausea vomiting, no worsening abdominal pain and his ileostomy bag is working. He refuses to take romeron stating that his depression is improved after he talked to his and he has good spirits and he does not want to take any more medication. His creatinine is stable at 2.2, patient updated and all his questions were answered. 07/16/2021 Patient clinically still improving gradually and slowly. He is encouraged himself to eat. No other specific new complaint. Creatinine slightly trending down to 0.1 today. Assistant [employer] Superintendent team on the case, he was placed or finger lactate 1 25 mL/h today instead of normal saline 75 mL/h. Continue on ceftriaxone and Flagyl. 07/17/2021 Patient is awake but sleepy he is placed on Xanax 0.5 twice a day as needed and Restoril 15 mg at bedtime as needed which make him sleepy, therefore I recommend stopping all the benzodiazepines and put him on melatonin as needed especially patient is with kidney injury and he is expected to be discharged home if he keeps improving. Also patient needs to stay awake for better diet. No other complaint and wound is healing. Hemodynamically stable. Continue with antibiotics per ID team Check creatinine tomorrow Objective - Vital Signs Vital signs: Vital Signs Temp 98.6 F 07/17/21 08:00 Pulse 68 07/17/21 08:00 Resp 15 07/17/21 08:00 BP 135/92 07/17/21 08:00 Pulse Ox 98 07/17/21 08:00 Intake & Output 07/16/21 07/17/21 07/17/21 18:59 06:59 18:59 Intake Total 1496 Output Total 775 1370 Balance 721 -1370 Intake: Oral 1496 Output: Drainage 5 20 Abdomen 5 20 Urine 1300 Stool 770 50 Other: Voiding Method Urinal Urinal # Voids 5 2 # Bowel Movements 1 1 - Exam -GENERAL: The patient is alert and oriented x3, not in any acute distress. Obese HEENT: Pupils are round and equally reacting to light. EOMI. No scleral icterus. No conjunctival pallor. Normocephalic, atraumatic. No pharyngeal erythema. No thyromegaly. CARDIOVASCULAR: S1 and S2 present. No murmurs, rubs, or gallops. PULMONARY: Chest is clear to auscultation, no wheezing or crackles. -ABDOMEN: Soft, nontender, nondistended, normoactive bowel sounds. No palpable organomegaly. Midline abdominal wound is healing and dressing is in place. Right lower ileostomy with evidence of stool MUSCULOSKELETAL: No joint swelling or deformity. EXTREMITIES: No cyanosis, clubbing, or pedal edema. NEUROLOGICAL: Gross neurological examination did not reveal any focal deficits. SKIN: No rashes. no petechiae. - Labs CBC & Chem 7: 07/14/21 07:40 07/16/21 05:29 Assessment and Plan Assessment: -Bowel perforation had ileus on admission. Status post laparotomy and small bowel resection, right colectomy ileostomy . Patient is presently on ceftriaxone and Flagyl. ID team on the case as well as surgery primary team. Patient still has poor oral intake secondary to his nausea. Reglan was added today as needed. TPN has been started -Acute kidney injury, vancomycin level be contributing. Continue with IV fluid, nephrology consult. Discontinue nephrotoxic substance -Elements of depression, psychiatric status patient on Dennis -hypertension. -History of Crohn's disease status post redo colectomy a few weeks ago -Leukocytosis , improved DVT prophylaxis: Lovenox GI prophylaxis: Protonix
[2021-07-17] MEDS: ONDANSETRON 4 MG/2 ML VIAL IVP PRN (14:29)
--- NOTE | 2021-07-17 15:41 | P.PN ---
Subjective Progress Note Date: 07/17/21 CHIEF COMPLAINT: Complicated Crohn's disease, status post ileostomy HISTORY OF PRESENT ILLNESS: The patient is a 41-year-old male status post small bowel resection, right colectomy with ileostomy, 06/21/2021 due to Crohn's disease. He is on antibiotics. Overnight, nurse notified he had a bowel move ment via the rectum and green output from his ileostomy - to be expected. ROS: No fevers or chills. No new chest pain. Has new depression. Morbid obesity, BMI 36.0 PHYSICAL EXAM: VITAL SIGNS: Reviewed CONSTITUTIONAL: Well developed and in no acute distress. EYES: Conjuctivae without sclera icterus. Extraocular movements grossly intact. HEAD, EARS, NOSE, THROAT: Moist buccal mucosa. Head is atraumatic, normocephalic. No nasal drainage. RESPIRATORY: Non-labored respirations and equal bilateral excursions. CARDIOVASCULAR: Palpable 2+ radial pulses. ABDOMEN: Ostomy pink and viable. Reviewed with Nichole Castellano ostomy educator. Retention sutures with mild skin erosion. MUSCULOSKELETAL: No gross deformity of the lower extremities noted. No clubbing. No cyanosis. SKIN: Good skin turgor. Well perfused. NEUROLOGIC: Cranial nerves II through XII grossly intact. No focal or la teralizing signs. PSYCH: Alert to person place and time. CLINICAL LABS: Reviewed. No new labs ASSESSMENT: 1. Crohn's disease status post right colectomy ileostomy PLAN: 1. Ostomy change and management at bedside performed with ostomy education by ostomy nurse 2. Iron supplement for anemia and iron deficiency. Objective - Vital Signs Vital signs: Vital Signs Temp 97.9 F 07/17/21 13:13 Pulse 71 07/17/21 13:13 Resp 17 07/17/21 13:13 BP 124/86 07/17/21 13:13 Pulse Ox 93 L 07/17/21 13:13 Intake & Output 07/16/21 07/17/21 07/17/21 18:59 06:59 18:59 Intake Total 1496 296 Output Total 775 1370 Balance 721 -1370 296 Intake: Oral 1496 296 Output: Drainage 5 20 Abdomen 5 20 Urine 1300 Stool 770 50 Other: Voiding Method Urinal Urinal Urinal # Voids 5 2 # Bowel Movements 1 1 - Labs CBC & Chem 7: 07/14/21 07:40 07/16/21 05:29 Assessment and Plan (1) Crohn's disease Current Visit: Yes Status: Acute Code(s): K50.90 - CROHN'S DISEASE, UNSPECIFIED, WITHOUT COMPLICATIONS SNOMED Code(s): 81250371 (2) Morbid obesity due to excess calories Current Visit: Yes Status: Acute Code(s): E66.01 - MORBID (SEVERE) OBESITY DUE TO EXCESS CALORIES SNOMED Code(s): 934758369 (3) BMI 36.0-36.9,adult Current Visit: Yes Status: Acute Code(s): Z68.36 - BODY MASS INDEX [BMI] 36.0-36.9, ADULT SNOMED Code(s): 530188195 (4) Incisional infection Current Visit: Yes Status: Acute Code(s): T81.49XA - INFECTION FOLLOWING A PROCEDURE, OTHER SURGICAL SITE, INIT SNOMED Code(s): 84709437 (5) Ileostomy in place Current Visit: Yes Status: Acute Code(s): Z93.2 - ILEOSTOMY STATUS SNOMED Code(s): 752617037
[2021-07-17 16:23] LABS: Glucose,Whole Blood 93 mg/dL (75-99)
[2021-07-17 21:05] LABS: Glucose,Whole Blood 113 mg/dL (75-99)
[2021-07-17] MEDS: LACTATED RINGERS 1,000 ML IV SCH (21:10)
[2021-07-17] MEDS: MIRTAZAPINE 15 MG TAB PO SCH (21:11)
--- NOTE | 2021-07-17 23:07 | P.PN ---
Subjective Progress Note Date: 07/16/21 Principal diagnosis: Abdominal wound infection Patient is 41 year male with a past medical history significant for Crohn's disease in this patient who recently did have a laparotomy for abdominal abscess, no readmitted to the hospital with abdominal pain and concern for abdominal wound dehiscence and possible infection. Patient was taken to the OR 06/21/2021 patient is status post laparotomy right colectomy and ileostomy and drainage of abdominal abscess, I was asked to reevaluate the patient by the medical team on 07/07/2021 for adjustment of his antibiotic On today's evaluation that is 07/16/2021, the patient remains to be afebrile, the patient denies chest pain shortness of breath or cough. The patient abdominal pain is controlled , the patient oral intake has improved, the patient denies any vomiting did have output in his ostomy Objective - Vital Signs Vital signs: Vital Signs Temp 98.0 F 07/16/21 08:00 Pulse 74 07/16/21 08:20 Resp 15 07/16/21 08:20 BP 113/75 07/16/21 08:00 Pulse Ox 97 07/16/21 08:00 Intake & Output 07/15/21 07/16/21 07/16/21 18:59 06:59 18:59 Output Total 1010 670 250 Balance -1010 -670 -250 Weight 110.7 kg Output: Drainage 10 20 Abdomen 10 20 Urine 500 400 Stool 500 250 250 Other: Voiding Method Urinal Urinal Urinal # Voids 6 1 # Bowel Movements 3 - Exam GENERAL DESCRIPTION:[ Patient is awake and alert in no distress] HEENT: [Oral mucosa is dry and no pharyngeal erythema] RESPIRATORY SYSTEM: [Unlabored breathing decreased. The base] CARDIA VASCULAR SYSTEM: [S1-S2 regular rate and rhythm no murmur] GI: [Abdominal soft midline abdominal wound dressing is intact, ADRIAN drain did have some purulent drainage EXTREMITIES: [No edema feet] - Labs CBC & Chem 7: 07/14/21 07:40 07/16/21 05:29 Labs: Abnormal Lab Results - Last 24 Hours (Table) 07/15/21 07/15/21 07/16/21 Range/Units 16:31 20:35 05:29 Carbon Dioxide 17.8 L (20.0-27.5) mmol/L Creatinine 2.1 H (0.6-1.5) mg/dL Est GFR (CKD-EPI)AfAm 43.5 L (60.0-200.0) Est GFR (CKD-EPI)NonAf 37.5 L (60.0-200.0) BUN/Creatinine Ratio 7.59 L (12.00-20.00) Ratio POC Glucose (mg/dL) 111 H 115 H (75-99) mg/dL Calcium 8.2 L (8.7-10.3) mg/dL 07/16/21 Range/Units 06:58 Carbon Dioxide (20.0-27.5) mmol/L Creatinine (0.6-1.5) mg/dL Est GFR (CKD-EPI)AfAm (60.0-200.0) Est GFR (CKD-EPI)NonAf (60.0-200.0) BUN/Creatinine Ratio (12.00-20.00) Ratio POC Glucose (mg/dL) 104 H (75-99) mg/dL Calcium (8.7-10.3) mg/dL Assessment and Plan (1) Incisional infection Current Visit: Yes Status: Acute Code(s): T81.49XA - INFECTION FOLLOWING A PROCEDURE, OTHER SURGICAL SITE, INIT SNOMED Code(s): 85062987 Plan: 1-patient admitted to the hospital with abdominal pain with abdominal incision dehiscence and concern for possible deep infection, and this patient who is status post exploratory laparotomy status post right colectomy and small bowel resection ileostomy and drainage of the abscess, no OR cultures were done superficial abdominal cultures showed E. coli and anaerobes, patient has shown some clinical improvement did have a normal white count and no fever currently on Rocephin and Flagyl, plan is to transition to oral antibiotic on discharge Time with Patient: Less than 30
--- NOTE | 2021-07-17 23:08 | P.PN ---
Subjective Progress Note Date: 07/17/21 Principal diagnosis: Abdominal wound infection Patient is 41 year male with a past medical history significant for Crohn's disease in this patient who recently did have a laparotomy for abdominal abscess, no readmitted to the hospital with abdominal pain and concern for abdominal wound dehiscence and possible infection. Patient was taken to the OR 06/21/2021 patient is status post laparotomy right colectomy and ileostomy and drainage of abdominal abscess, I was asked to reevaluate the patient by the medical team on 07/07/2021 for adjustment of his antibiotic On today's evaluation that is 07/17/2021, the patient continues to be afebrile, the patient denies chest pain shortness of breath or cough. The patient abdominal pain is controlled , the patient has been tolerating his diet is feeling better and wants to go home Objective - Vital Signs Vital signs: Vital Signs Temp 97.9 F 07/17/21 13:13 Pulse 71 07/17/21 13:13 Resp 17 07/17/21 13:13 BP 124/86 07/17/21 13:13 Pulse Ox 93 L 07/17/21 13:13 Intake & Output 07/16/21 07/17/21 07/17/21 18:59 06:59 18:59 Intake Total 1496 296 Output Total 775 1370 5 Balance 721 -1370 291 Intake: Oral 1496 296 Output: Drainage 5 20 5 Abdomen 5 20 5 Urine 1300 Stool 770 50 Other: Voiding Method Urinal Urinal Urinal # Voids 5 2 # Bowel Movements 1 1 - Exam GENERAL DESCRIPTION:[ Patient is awake and alert in no distress] HEENT: [Oral mucosa is dry and no pharyngeal erythema] RESPIRATORY SYSTEM: [Unlabored breathing decreased. The base] CARDIA VASCULAR SYSTEM: [S1-S2 regular rate and rhythm no murmur] GI: [Abdominal soft midline abdominal wound dressing is intact, ADRIAN drain with minimal purulent drainage EXTREMITIES: [No edema feet] - Labs CBC & Chem 7: 07/14/21 07:40 07/16/21 05:29 Assessment and Plan (1) Incisional infection Current Visit: Yes Status: Acute Code(s): T81.49XA - INFECTION FOLLOWING A PROCEDURE, OTHER SURGICAL SITE, INIT SNOMED Code(s): 06152507 Plan: 1-patient admitted to the hospital with abdominal pain with abdominal incision dehiscence and concern for possible deep infection, and this patient who is status post exploratory laparotomy status post right colectomy and small bowel resection ileostomy and drainage of the abscess, no OR cultures were done superficial abdominal cultures showed E. coli and anaerobes, patient has shown some clinical improvement did have a normal white count and no fever currently on Rocephin and Flagyl, plan is to transition to oral Ceftin and Flagyl on discharge and close outpatient follow-up Time with Patient: Less than 30
[2021-07-18] MEDS: traMADol 50 MG TAB PO SCH ×3 (00:13→13:45)
[2021-07-18] MEDS: LACTATED RINGERS 1,000 ML IV SCH (05:45)
[2021-07-18] MEDS: INSULIN ASPART (NovoLOG) 100 UNIT/ML VIAL SQ SCH ×2 (08:02→13:37)
[2021-07-18] MEDS: metroNIDAZOLE 500 MG TAB PO SCH (08:04)
[2021-07-18] MEDS: PANTOPRAZOLE 40 MG TABLET PO SCH (08:04)
[2021-07-18] MEDS: ENOXAPARIN 40 MG/0.4 ML SYRINGE SQ SCH (08:04)
[2021-07-18] MEDS: SODIUM BICARBONATE TAB 650 MG TAB PO SCH ×2 (08:04→13:45)
[2021-07-18 08:25] LABS: Anisocytosis Slight; Basophils % (A) 1 %; Eosinophils # (A) 0.1 k/uL (0-0.7); Eosinophils % (A) 2 %; HCT 24.7 % (39.0-53.0); HGB 7.7 gm/dL (13.0-17.5); Hypochromasia Marked; Lymphocytes # (A) 0.7 k/uL (1.0-4.8); Lymphocytes % (A) 12 %; MCH 30.3 pg (25.0-35.0); MCHC 31.2 g/dL (31.0-37.0); MCV 97.1 fL (80.0-100.0); Mean Platelet Volume 7.8; Monocytes # (A) 0.3 k/uL (0-1.0); Monocytes % (A) 6 %; Neutrophils # (A) 4.5 k/uL (1.3-7.7); Neutrophils % (A) 78 %; Platelet Count 261 k/uL (150-450); RBC 2.54 m/uL (4.30-5.90); RDW 16.1 % (11.5-15.5); WBC 5.8 k/uL (3.8-10.6)
[2021-07-18 10:23] LABS: Anion Gap 13.3 mmol/L (10.00-18.00); BUN/Creat Ratio 6.72 Ratio (12.00-20.00); Blood Urea Nitrogen 12.1 mg/dL (9.0-27.0); Calcium 8.2 mg/dL (8.7-10.3); Carbon Dioxide 18.7 mmol/L (20.0-27.5); Non-African American GFR(CKD) 45.7 (60.0-200.0)
--- NOTE | 2021-07-18 10:29 | P.PN ---
Subjective Patient is seen for follow-up for acute kidney injury mostly associated with vancomycin toxicity. Serum creatinine was staying at about 2 mg/dL, today it is improved to 1.8. Previous creatinine 0.9 on 07/06/2021. Patient has good urine output, 1400 mL noted over 24 hours. He is maintained on IV fluids No significant complaints today. Objective - Vital Signs Vital signs: Vital Signs Temp 98.6 F 07/18/21 08:00 Pulse 65 07/18/21 08:03 Resp 16 07/18/21 08:03 BP 146/79 07/18/21 08:00 Pulse Ox 98 07/18/21 08:00 Intake & Output 07/17/21 07/18/21 07/18/21 18:59 06:59 18:59 Intake Total 1696 Output Total 511 2075 Balance 1185 -2075 Intake: IV 500 Sodium Chloride 0.9% 1, 500 000 ml @ 100 mls/hr IV . Q10H [facility] Rx#:[id number] Intake, IV Titration 50 Amount cefTRIAXone 2 gm In 50 Sodium Chloride 0.9% 50 ml @ 100 mls/hr IVPB Q24HR [facility] Rx#:[id number] Oral 1146 Output: Drainage 11 5 Abdomen 11 5 Urine 1620 Stool 500 450 Other: Voiding Method Urinal Urinal Urinal # Voids 5 4 - Exam Patient is awake comfortable, alert oriented 3. Examination of the heart S1 and S2 Examination lungs bilateral breath sounds are heard Abdomen is soft, ileostomy noted, incision is dressed Examination of lower extremities shows no significant edema - Labs CBC & Chem 7: 07/18/21 07:08 07/18/21 07:08 Labs: Abnormal Lab Results - Last 24 Hours (Table) 07/17/21 07/18/21 07/18/21 Range/Units 21:04 07:08 07:08 RBC 2.54 L (4.30-5.90) m/uL Hgb 7.7 L (13.0-17.5) gm/dL Hct 24.7 L (39.0-53.0) % RDW 16.1 H (11.5-15.5) % Lymphocytes # 0.7 L (1.0-4.8) k/uL Carbon Dioxide 18.7 L (20.0-27.5) mmol/L Creatinine 1.8 H (0.6-1.5) mg/dL Est GFR (CKD-EPI)AfAm 53.0 L (60.0-200.0) Est GFR (CKD-EPI)NonAf 45.7 L (60.0-200.0) BUN/Creatinine Ratio 6.72 L (12.00-20.00) Ratio POC Glucose (mg/dL) 113 H (75-99) mg/dL Calcium 8.2 L (8.7-10.3) mg/dL Assessment and Plan Assessment: 1. Acute kidney injury, nonoliguric secondary to vancomycin toxicity. Vancomycin now discontinued. No other nephrotoxic agents noted. 2. Abdominal abscess status post explorative laparotomy with right colectomy and small bowel resection and ileostomy maintained on antibiotics 3. Hyperkalemia on initial admission currently resolved 4. Crohn's disease with intra-abdominal abscess status post redo surgery on 06/23/2021 5. Anemia, no active bleeding noted. Multifactorial including 2 recent surgeries 6. Metabolic acidosis maintained on oral sodium bicarb Plan: Continue IV fluids Continue oral sodium bicarb Repeat labs Continue to avoid any nephrotoxic agents.
--- NOTE | 2021-07-18 11:33 | P.PN ---
Subjective 41-year-old male with history of Crohn's disease and abscess had a ileocolectomy on 05/28/2021 subsequently discharged to [facility] patient rehabitation patient won't cultures during previous hospital physicians showed E. coli and Keke patient to complete the treatment with Augmentin and Diflucan. I did evaluate this patient at [facility] rehabilitation at that time I obtain the cultures as there was concern about new infection in the surgical site area will obtain those cultures, infectious disease evaluated the patient there. Patient was subsequently discharged. came in with the increase the pain and infection of the surgical site area now. Patient had a CT of the abdomen which is concerning for ileus although patient was having normal bowel movements. Patient is hyponatremic. Patient will sugars are highly elevated lower obtain hemoglobin and patient was started on insulin regimen along with sliding scale. Subjective: 07/08/2021 This is a pleasant 41 years old male who presents with surgical site infection with bowel perforation status post exploratory laparotomy and small bowel resection with right colectomy and ileostomy on the right side, patient had significant infection and recurrent word several and prolonged antibiotic therapy. Currently he was on ceftriaxone and Flagyl, vancomycin was already discontinued, however level today was elevated at 32 and there is evidence of trending up creatinine from baseline of 0.7-0.9 up to 1.6 yesterday and 2.27 today. No incidents, no evidence of hypertension, no recent IV contrast and patient is currently on normal saline at 75 mL/h. He had Wheeler catheter previously which was discontinued, discussed with the bedside nurse Hesham to check bladder scan. Medical Reception team were consulted. Several consultants on the case included surgery primary team, infectious disease team. Patient himself is fully awake and oriented looks calm, no distress, no symptoms. No abdominal pain and ileostomy bag is working, however his eating is marginal. Patient encouraged to eat more 07/09/2021 Patient clinically looks similar to yesterday, no other new complaints. He still has poor oral and take even to food brought from THE [facility]OS[facility], PART OF IT IS A DUE TO NAUSEA AND CONTROLLED WITH ZOFRAN. DAILY REGLAN HAS BEEN ADDED NEEDED. ALSO SCRAP SORTER TEAM FOLLOWING HIM CLOSELY FOR HIS ACUTE KIDNEY INJURY SUSPECTED SECONDARY TO VANCOMYCIN TOXICITY currently his IV vancomycin is put on hold and his creatinine is slightly elevated at 2.4 compared to 2.27 yesterday. The patient is making good urine output. Checked bladder scan 35 mL only. Regarding his wound infection is currently covered with ceftriaxone and Flagyl as well as normal saline 75 mL/h. His ileostomy bag is working. No abdominal pain 07/09/2021 Patient is still with poor appetite, no nausea contributing to his low appetite today. I discussed with him and bedside nurse to try soft diet and he agrees. Vitals stable. Creatinine is stable 2.4-like yesterday secondary to vancomycin toxicity. Patient continued currently normal saline 75 mL/h Also continued with ceftriaxone and Flagyl for his infected wound area. Subjective: Resume in the care of the patient again on 07/13/2021 Patient still with low appetite and some nausea and has not eaten much and TPN started by surgery team. He looks somewhat depressed and primary team recommended starting antidepressant, psych Raghu Franco consulted and he was placed on Remeron 15 mg at bedtime which could be increased to 30 mg tomorrow. His creatinine is still the same at 2.3, suspected secondary to vancomycin since toxicity. Currently he is on different antibiotics of ceftriaxone and Flagyl. Renal ultrasound showing no hydronephrosis or other significant abnormality to explain the patient's symptoms or abnormalities. There is some gentle hydration. Also he is on ceftriaxone and Flagyl with infectious disease team on the case. 07/14/2021 Patient did not cut the PICC line and did not start TPN, and he said he is encouraged himself to eat despite his low appetite. No other new complaints and is hemodynamically stable. Creatinine is stable at 2.24. He remains on ceftriaxone, Flagyl, normal saline at 75 mL/h Yesterday psychiatrist to evaluate the patient and start him on romeron to help him with depression 07/15/2021 Patient is clinically doing well. He is eating his diet except for breakfast as he is not a breakfast Srini guarded as he describes. No nausea vomiting, no worsening abdominal pain and his ileostomy bag is working. He refuses to take romeron stating that his depression is improved after he talked to his and he has good spirits and he does not want to take any more medication. His creatinine is stable at 2.2, patient updated and all his questions were answered. 07/16/2021 Patient clinically still improving gradually and slowly. He is encouraged himself to eat. No other specific new complaint. Creatinine slightly trending down to 0.1 today. Medical Reception team on the case, he was placed or finger lactate 1 25 mL/h today instead of normal saline 75 mL/h. Continue on ceftriaxone and Flagyl. 07/17/2021 Patient is awake but sleepy he is placed on Xanax 0.5 twice a day as needed and Restoril 15 mg at bedtime as needed which make him sleepy, therefore I recommend stopping all the benzodiazepines and put him on melatonin as needed especially patient is with kidney injury and he is expected to be discharged home if he keeps improving. Also patient needs to stay awake for better diet. No other complaint and wound is healing. Hemodynamically stable. Continue with antibiotics per ID team Check creatinine tomorrow 07/18/2021 Patient awake and alert, no chest pain or dyspnea, he is eating his diet except breakfast usually he does not eat breakfast as he states. No abdominal pain, ostomy bag is working. He is hemodynamically stable. Labs showing improvement with WBC back to normal 5.8, hemoglobin stable at 7.7. Creatinine actually improved down to 1.8 and patient making good urine output. He remains on antibiotics of ceftriaxone, and Flagyl patient looks medically stable Objective - Vital Signs Vital signs: Vital Signs Temp 98.6 F 07/18/21 08:00 Pulse 65 07/18/21 08:03 Resp 16 07/18/21 08:03 BP 146/79 07/18/21 08:00 Pulse Ox 98 07/18/21 08:00 Intake & Output 07/17/21 07/18/21 07/18/21 18:59 06:59 18:59 Intake Total 1696 Output Total 511 2075 Balance 1185 -2075 Intake: IV 500 Sodium Chloride 0.9% 1, 500 000 ml @ 100 mls/hr IV . Q10H [facility] Rx#:[id number] Intake, IV Titration 50 Amount cefTRIAXone 2 gm In 50 Sodium Chloride 0.9% 50 ml @ 100 mls/hr IVPB Q24HR [facility] Rx#:[id number] Oral 1146 Output: Drainage 11 5 Abdomen 11 5 Urine 1620 Stool 500 450 Other: Voiding Method Urinal Urinal Urinal # Voids 5 4 - Exam -GENERAL: The patient is alert and oriented x3, not in any acute distress. Obese HEENT: Pupils are round and equally reacting to light. EOMI. No scleral icterus. No conjunctival pallor. Normocephalic, atraumatic. No pharyngeal erythema. No thyromegaly. CARDIOVASCULAR: S1 and S2 present. No murmurs, rubs, or gallops. PULMONARY: Chest is clear to auscultation, no wheezing or crackles. -ABDOMEN: Soft, nontender, nondistended, normoactive bowel sounds. No palpable organomegaly. Midline abdominal wound is healing and dressing is in place. Right lower ileostomy with evidence of stool MUSCULOSKELETAL: No joint swelling or deformity. EXTREMITIES: No cyanosis, clubbing, or pedal edema. NEUROLOGICAL: Gross neurological examination did not reveal any focal deficits. SKIN: No rashes. no petechiae. - Labs CBC & Chem 7: 07/18/21 07:08 07/18/21 07:08 Labs: Abnormal Lab Results - Last 24 Hours (Table) 07/17/21 07/18/21 07/18/21 Range/Units 21:04 07:08 07:08 RBC 2.54 L (4.30-5.90) m/uL Hgb 7.7 L (13.0-17.5) gm/dL Hct 24.7 L (39.0-53.0) % RDW 16.1 H (11.5-15.5) % Lymphocytes # 0.7 L (1.0-4.8) k/uL Carbon Dioxide 18.7 L (20.0-27.5) mmol/L Creatinine 1.8 H (0.6-1.5) mg/dL Est GFR (CKD-EPI)AfAm 53.0 L (60.0-200.0) Est GFR (CKD-EPI)NonAf 45.7 L (60.0-200.0) BUN/Creatinine Ratio 6.72 L (12.00-20.00) Ratio POC Glucose (mg/dL) 113 H (75-99) mg/dL Calcium 8.2 L (8.7-10.3) mg/dL Assessment and Plan Assessment: -Bowel perforation had ileus on admission. Status post laparotomy and small bowel resection, right colectomy ileostomy . Patient is presently on ceftriaxone and Flagyl. ID team on the case as well as surgery primary team. Patient still has poor oral intake secondary to his nausea. Reglan was added today as needed. Patient does not need TPN and he is tolerating diet well -Acute kidney injury, vancomycin level be contributing. Continue with IV fluid, nephrology consult. Discontinue nephrotoxic substance. Improving creatinine -Elements of depression, psychiatric status patient on Romeron however patient refused taking medication and his wound looks improved -hypertension. -History of Crohn's disease status post redo colectomy a few weeks ago -Leukocytosis , improved DVT prophylaxis: Lovenox GI prophylaxis: Protonix
--- NOTE | 2021-07-18 15:26 | P.DS ---
Providers Date of admission: 06/20/21 00:12 Expected date of discharge: 07/18/21 Attending physician: Marco A Steen Consults: 06/20/21 11:55 Consult Physician Routine Consulting Provider: Carrie Parikh Consult Reason/Comments: medical management Do you want consulting provider notified?: Yes 06/20/21 13:09 Consult Physician Routine Consulting Provider: Gabriel Anna Consult Reason/Comments: Surgical site infection Do you want consulting provider notified?: Yes 07/08/21 08:26 Consult Physician Urgent Consulting Provider: Audrey Garcia Consult Reason/Comments: Vanco toxicity, worsening kidney function Do you want consulting provider notified?: Yes 07/13/21 11:13 Consult Physician Routine Consulting Provider: Rajesh Goodwin Consult Reason/Comments: depression Do you want consulting provider notified?: Yes Primary care physician: Erin Luna MD Hospital Course: Discharge diagnosis 1. Status post exploratory laparotomy, small bowel resection, right colectomy w ith ileostomy for abdominal fascial dehiscence, perforated small bowel and intra-abdominal abscess 2. Ileus resolved 3. Crohn's disease with abscess status post ileocolectomy and washout of peritoneal abscess on 05/28/2021 4. Generalized weakness 5. Anemia likely dilutional from IV fluids 6. Acute kidney injury Hospital course This is a 41-year-old male who recently was hospitalized with Crohn's disease with abscess and is status post ileocolectomy and washout of peritoneal abscess on 05/28/[address] steen. Patient was discharged to [facility] rehab. He was just recently released and had been home on Sunday and Sunday. He started to noted increased drainage from the distal aspect of his incision site. It was brownish in color and had follow odor. He also had increase in abdominal pain with movement. He came into the ER for further evaluation. He's been placed on IV antibiotics. He had a computed tomography scan of the abdomen and pelvis completing showing concerns of ileus. Patient then developed bilious fluid draining from his incision. Dr. steen took patient to the OR and he is now status post Status post exploratory laparotomy, small bowel resection, right colectomy with ileostomy for abdominal fascial dehiscence, perforated small bowel and intra-abdominal abscess on 06/21/2021. Patient had prolonged hospitalization. He developed acute kidney injury and also anemia. Patient did require blood transfusion during this admission. He was seen by nephrology regarding his acute kidney injury. Patient is tolerating diet. He has been up and ambulating. His ileostomy is functioning. He is afebrile. He is stable for discharge. He has been cleared by all consulting physicians. Patient will continue antibiotics for 2 more weeks after discharge per infectious disease. Patient will follow up with nephrology in the office. Patient will be discharged home with ADRIAN drain. There continues to be a small amount of purulent drainage. Patient is stable for discharge. Please refer to chart for any further details. Patient Condition at Discharge: Stable Plan - Discharge Summary Discharge Rx Participant: No New Discharge Prescriptions: New Cefuroxime Axetil [Ceftin] 500 mg PO BID 14 Days #28 tab metroNIDAZOLE [Flagyl] 500 mg PO TID 14 Days #56 tab traMADol HCL [Ultram] 50 mg PO Q8HR PRN 3 Days #9 tab PRN Reason: Pain Sodium Bicarbonate Tab 650 mg PO QID #120 tab Continue Cholecalciferol [Vitamin D3 (25 Mcg = 1000 Iu)] 50 mcg PO DAILY Ascorbic Acid [Vitamin C] 500 mg PO DAILY Albuterol Sulfate [Albuterol Sulfate Hfa] 2 puff PO RT-Q6H PRN PRN Reason: Shortness Of Breath Discontinued traMADol HCl [Ultram] 50 mg PO Q6HR PRN PRN Reason: Pain Zinc 50 mg PO DAILY Discharge Medication List Albuterol Sulfate [Albuterol Sulfate Hfa] 2 puff PO RT-Q6H PRN 06/19/21 [History] Ascorbic Acid [Vitamin C] 500 mg PO DAILY 06/19/21 [History] Cholecalciferol [Vitamin D3 (25 Mcg = 1000 Iu)] 50 mcg PO DAILY 06/19/21 [History] Cefuroxime Axetil [Ceftin] 500 mg PO BID 14 Days #28 tab 07/18/21 [Rx] Sodium Bicarbonate Tab 650 mg PO QID #120 tab 07/18/21 [Rx] metroNIDAZOLE [Flagyl] 500 mg PO TID 14 Days #56 tab 07/18/21 [Rx] traMADol HCL [Ultram] 50 mg PO Q8HR PRN 3 Days #9 tab 07/18/21 [Rx] Follow up Appointment(s)/Referral(s): Erin Luna MD [Primary Care Provider] - 1-2 days Audrey Garcia MD [STAFF PHYSICIAN] - 1 Week NursingJonathan [NON-STAFF] - As Needed Marco A Steen MD [STAFF PHYSICIAN] - 1 Week Patient Instructions/Handouts: Ileostomy Care (GEN), Surgical Site Infections (ED), Ileus (ED) Activity/Diet/Wound Care/Special Instructions: Medicine service to complete discharge med rec Recommendations for Home for Ileostomy care: Last pouching system change: 07.17.2021 Mr Salcedo will have the following ileostomy supplies sent home for care from the hospital: [facility] one piece cut to fit with filter #[id number] (3) No sting prep pads (10) [employer] (2) Ostomy powder (1) Mr Salcedo is to change the entire ostomy system every 3-5 days Mr Salcedo is to empty the pouch when it is 1/2 to 1/3 while sitting on the toilet or straddling the toilet Additional free samples are beign ordered to send to Mr Salcedo's home for ostomy care from [facility] No lifting over 10 pounds You may shower. No soaking or tub baths for 2 weeks Very light activity until you are reevaluated at your follow up appointment with your surgeon Keep a log of ADRIAN drain output and bring with you to your follow-up appointment Milk/strip drains 2-3 times a day Discharge Disposition: HOME WITH HOME HEALTH SERVICES
[2021-07-18 16:23] VITALS: BP 113/77; PULSE 67; RESP 18; TEMP 98.3
== END 2021-07-18 16:59 | disposition home health service (06) | DRG 856 ==
LOC: EC 19:09 → 5NMEDONC 06-20 00:12 → 2SICU 06-21 21:28 → 4SSUR 06-24 16:24
PROVIDERS: ADMIT Surgery; ATTEND Surgery
PROC: 0DB80ZZ Excision of Small Intestine, Open Approach (ICD-10-PCS; principal; 2021-06-21 19:15)
PROC: 0D1B0Z4 Bypass Ileum to Cutaneous, Open Approach (ICD-10-PCS; principal; 2021-06-21 19:15)
PROC: 0DN80ZZ Release Small Intestine, Open Approach (ICD-10-PCS; principal; 2021-06-21 19:15)
PROC: 0DTF0ZZ Resection of Right Large Intestine, Open Approach (ICD-10-PCS; principal; 2021-06-21 19:15)
PROC: 02HV33Z Insertion of Infusion Device into Superior Vena Cava, Percutaneous Approach (ICD-10-PCS; 2021-06-22)
PROC: 3E0436Z Introduction of Nutritional Substance into Central Vein, Percutaneous Approach (ICD-10-PCS; 2021-06-23)
PROC: 30233N1 Transfusion of Nonautologous Red Blood Cells into Peripheral Vein, Percutaneous Approach (ICD-10-PCS; 2021-06-24)
PROC: 05HB33Z Insertion of Infusion Device into Right Basilic Vein, Percutaneous Approach (ICD-10-PCS; 2021-07-13)
DX: T81.41XA Infection following a procedure, superficial incisional surgical site, initial encounter (principal); A41.51 Sepsis due to Escherichia coli [E. coli]; J96.01 Acute respiratory failure with hypoxia; N17.0 Acute kidney failure with tubular necrosis; R65.20 Severe sepsis without septic shock; K63.1 Perforation of intestine (nontraumatic); K65.1 Peritoneal abscess; T81.32XA Disruption of internal operation (surgical) wound, not elsewhere classified, initial encounter; K56.7 Ileus, unspecified; K50.914 Crohn's disease, unspecified, with abscess; E87.1 Hypo-osmolality and hyponatremia; D62 Acute posthemorrhagic anemia; E87.2 Acidosis; Z68.41 Body mass index [BMI] 40.0-44.9, adult; J98.11 Atelectasis; T81.44XA Sepsis following a procedure, initial encounter; L89.322 Pressure ulcer of left buttock, stage 2; E66.01 Morbid (severe) obesity due to excess calories; Z20.822 Contact with and (suspected) exposure to COVID-19; I95.9 Hypotension, unspecified; N14.1 Nephropathy induced by other drugs, medicaments and biological substances; T36.8X5A Adverse effect of other systemic antibiotics, initial encounter; E87.5 Hyperkalemia; E83.42 Hypomagnesemia; E86.1 Hypovolemia; I10 Essential (primary) hypertension; F32.9 Major depressive disorder, single episode, unspecified; F41.9 Anxiety disorder, unspecified; Z79.899 Other long term (current) drug therapy; Z87.891 Personal history of nicotine dependence; Z87.19 Personal history of other diseases of the digestive system; Z86.16 Personal history of COVID-19; Z87.01 Personal history of pneumonia (recurrent); Z86.79 Personal history of other diseases of the circulatory system; Z98.890 Other specified postprocedural states; Z71.3 Dietary counseling and surveillance; Z88.6 Allergy status to analgesic agent; Y83.8 Other surgical procedures as the cause of abnormal reaction of the patient, or of later complication, without mention of misadventure at the time of the procedure; Y92.230 Patient room in hospital as the place of occurrence of the external cause; Z83.511 Family history of glaucoma
CPT/HCPCS: 36410; 36415; 36573; 36600; 71045; 74018; 74177; 76770; 76937; 80048; 80053; 80202; 81001; 82330; 82805; 83540; 83550; 83605; 83690; 83735; 84100; 84145; 84478; 85025; 85027; 86140; 86850; 86900; 86901; 86920; 87040; 87070; 87075; 87077; 87186; 87205; 87324; 87635; 88307; 94002; 94003; 94760; 96361; 96365; 96366; 99285

== ENCOUNTER 2021-07-28 14:40 | Inpatient (IN) | payer OTHER ==
[2021-07-28] MEDS ORDERED: SODIUM CHLORIDE 0.9% 1,000 ML IV STA (14:43)
--- NOTE | 2021-07-28 15:03 | ED ---
General Adult HPI - General Chief complaint: Nausea/Vomiting/Diarrhea Stated complaint: Light headed Time Seen by Provider: 07/28/21 14:43 Source: patient, EMS, RN notes reviewed, old records reviewed Mode of arrival: EMS Limitations: no limitations - History of Present Illness Initial comments: 41 yo male presenting for evaluation of dehydration, nausea. Patient has had complicated recent medical history including ileostomy and abdominal infection requiring drain. He was sent from his general surgeon's office for admission for IV fluids. Patient denies fever. He denies abdominal pain. He has had some output from his ileostomy. There's been minimal output from the ADRIAN drain. - Related Data Home Medications Medication Instructions Recorded Confirmed Albuterol Sulfate [Albuterol 2 puff PO RT-Q6H PRN 06/19/21 06/19/21 Sulfate Hfa] Ascorbic Acid [Vitamin C] 500 mg PO DAILY 06/19/21 06/19/21 Cholecalciferol [Vitamin D3 (25 50 mcg PO DAILY 06/19/21 06/19/21 Mcg = 1000 Iu)] Previous Rx's Medication Instructions Recorded Cefuroxime Axetil [Ceftin] 500 mg PO BID 14 Days #28 tab 07/18/21 Sodium Bicarbonate Tab 650 mg PO QID #120 tab 07/18/21 metroNIDAZOLE [Flagyl] 500 mg PO TID 14 Days #56 tab 07/18/21 traMADol HCL [Ultram] 50 mg PO Q8HR PRN 3 Days #9 tab 07/18/21 Allergies Allergy/AdvReac Type Severity Reaction Status Date / Time acetaminophen [From Tylenol] Allergy Chest Pain Verified 07/28/21 14:50 Review of Systems ROS Statement: Those systems with pertinent positive or pertinent negative responses have been documented in the HPI. ROS Other: All systems not noted in ROS Statement are negative. Past Medical History Past Medical History: No Reported History Additional Past Medical History / Comment(s): Recently had surgery for chron's with peritoneal abscess, covid + 05/17/21. History of Any Multi-Drug Resistant Organisms: None Reported Past Surgical History: Bowel Resection, Hernia Repair Additional Past Surgical History / Comment(s): 05/28/21 ileocolectomy with washout pf pertioneal abscess, R inguinal hernia repair. Past Anesthesia/Blood Transfusion Reactions: No Reported Reaction Past Psychological History: No Psychological Hx Reported Smoking Status: Former smoker Past Alcohol Use History: Occasional Past Drug Use History: None Reported - Past Family History Father Family Medical History: No Reported History Additional Family Medical History / Comment(s): Father is healthy Mother Family Medical History: Eye Disorder Additional Family Medical History / Comment(s): Mother has glaucoma General Exam Limitations: no limitations General appearance: alert, in no apparent distress Head exam: Present: atraumatic, normocephalic Eye exam: Present: normal appearance, PERRL ENT exam: Present: mucous membranes dry Neck exam: Present: normal inspection. Absent: tenderness, meningismus Respiratory exam: Present: normal lung sounds bilaterally. Absent: respiratory distress, wheezes Cardiovascular Exam: Present: regular rate, normal rhythm GI/Abdominal exam: Present: soft, other (Ileostomy with output. There is a ADRIAN drain with some minimal purulent drainage.). Absent: distended, tenderness Extremities exam: Present: normal inspection, normal capillary refill Back exam: Present: normal inspection Neurological exam: Present: alert, oriented X3, CN II-XII intact. Absent: motor sensory deficit Skin exam: Present: warm, dry, intact. Absent: cyanosis, diaphoretic Course Vital Signs 07/28/21 14:42 Temperature 97.0 F L Pulse Rate 109 H Respiratory 20 Rate Blood Pressure 102/72 O2 Sat by Pulse 100 Oximetry EKG Findings - EKG Comments: EKG Findings:: EKG: Sinus rhythm with a rate of 93, TN interval 146, QRS duration 82, QTC 402, no ST segment elevation. Medical Decision Making - Medical Decision Making 41-year-old male with recent prolonged hospital admission presenting with concerns for dehydration and poor oral intake. Patient was sent in for admission by Dr. Marsh. Patient will be admitted, lab testing will be obtained CT has been ordered. He will be continued on IV hydration, pain control, antiemetics. Results are pending on both imaging and laboratory testing at the time of this dictation. Disposition Clinical Impression: Ileostomy in place, Weakness, Dehydration, Crohn's disease Disposition: ADMITTED IP TO THIS [facility] Condition: Stable Is patient prescribed a controlled substance at d/c from ED?: No Referrals: Erin Luna MD [Primary Care Provider] - 1-2 days Decision to Admit Reason: Admit from EC Decision Date: 07/28/21 Decision Time: 15:38
[2021-07-28] MEDS ORDERED: NALOXONE 0.4 MG/ML 1 ML VIAL IV PRN (15:36)
[2021-07-28] MEDS ORDERED: MORPHINE SULFATE 4 MG/ML SYRINGE IV PRN (15:36)
[2021-07-28] MEDS: SODIUM CHLORIDE 0.9% 1,000 ML IV SCH (17:43)
--- NOTE | 2021-07-28 18:54 | CT ---
EXAMINATION TYPE: CT abdomen pelvis wo con CT DLP: 1093.4 mGycm, Automated exposure control for dose reduction was used. DATE OF EXAM: 07/28/2021 6:02 PM COMPARISON: CT abdomen pelvis most recent from 06/16/2021. CLINICAL INDICATION:Male, 41 years old with history of ab pain; Abdominal pain. Recent abdominal surg anne. TECHNIQUE: Standard CT of the abdomen and pelvis without IV or oral contrast. Lack of IV or oral co ntrast limits evaluation of solid and hollow organ viscera. Coronal and sagittal reformats were perfo rmed. FINDINGS: LOWER CHEST: Unremarkable ABDOMEN LIVER: Nodular contour to the liver. Hypertrophy of the caudate lobe. GALLBLADDER AND BILE DUCTS: Unremarkable. PANCREAS: Unremarkable. SPLEEN: Small splenule is present. No enlarged ADRENAL GLANDS: Unremarkable. KIDNEYS AND URETERS: No evidence of hydronephrosis or renal calculus. The ureters are unremarkable. PELVIS BLADDER: Unremarkable REPRODUCTIVE: Unremarkable. ABDOMEN & PELVIS STOMACH AND BOWEL: No evidence of bowel obstruction. Postsurgical changes to the bowel with ostomy no inocencia. PERITONEUM: No evidence of pneumoperitoneum. There is a persistent fluid collection within the right upper quadrant with a Ajit-Perez drain located within the fluid collection. VASCULATURE: Mild atherosclerotic calcifications are present throughout the abdominal aorta and its b ranches. MUSCULOSKELETAL: Moderate disc degeneration changes are present throughout the thoracolumbar spine wi th degeneration most proximal at T11-T12 adjoining endplates. Additional sclerosis adjacent to the sa croiliac joints most pronounced on the left. LYMPH NODES: No gross evidence for lymphadenopathy. SOFT TISSUE/ABDOMINAL WALL: Surgical changes to the anterior abdominal wall. IMPRESSION: 1. Persistent right upper quadrant fluid collection with Ajit-Perez drain within the fluid collect ion. 2. Postsurgical changes of the bowel with ostomy is present. 3. Nodular contour liver correlate for hepatic cirrhosis.
[2021-07-28 19:34] LABS: Anisocytosis Slight; Basophils % (A) 0 %; Eosinophils % (A) 0 %; HCT 28.7 % (39.0-53.0); Lymphocytes # (A) 0.7 k/uL (1.0-4.8); Lymphocytes % (A) 7 %; MCH 30.2 pg (25.0-35.0); MCHC 33.5 g/dL (31.0-37.0); Mean Platelet Volume 7.8; Monocytes # (A) 0.3 k/uL (0-1.0); Monocytes % (A) 3 %; Neutrophils # (A) 8.3 k/uL (1.3-7.7); Neutrophils % (A) 87 %; Platelet Count 312 k/uL (150-450); RBC 3.18 m/uL (4.30-5.90); RDW 16.5 % (11.5-15.5); WBC 9.5 k/uL (3.8-10.6)
[2021-07-28 19:39] LABS: HGB 9.6 gm/dL (13.0-17.5)
[2021-07-28 19:40] LABS: MCV 90.3 fL (80.0-100.0)
[2021-07-28 20:00] LABS: Albumin 3.8 g/dL (3.5-5.0); Calcium 8.6 mg/dL (8.4-10.2); Potassium 3.8 mmol/L (3.5-5.1); Total Protein 7.2 g/dL (6.3-8.2)
[2021-07-28] MEDS ORDERED: MELATONIN 5 MG TABLET PO PRN (22:08)
[2021-07-29] MEDS: SODIUM CHLORIDE 0.9% 1,000 ML IV SCH ×4 (00:31→21:46)
[2021-07-29] MEDS: ONDANSETRON 4 MG/2 ML VIAL IVP PRN (01:29)
[2021-07-29] MEDS ORDERED: SODIUM CHLORIDE 0.9% 1,000 ML IV ONE (09:47)
--- NOTE | 2021-07-29 12:32 | P.GSHP ---
History of Present Illness H&P Date: 07/29/21 CHIEF COMPLAINT: Dehydration HISTORY OF PRESENT ILLNESS: This is a 41-year-old male with history of exploratory laparotomy, small bowel resection, right colectomy and ileostomy placement on 06/21/2021 for abdominal fascial dehiscence, perforated small bowel and intra-abdominal abscess. Patient is on oral antibiotics. He has history of Crohn's and required ileocolectomy in May with peritoneal washout for abscess. He reports his pain is controlled. He went to see Dr. steen for follow-up visit. He is been very dehydrated with poor oral intake. He complains of nausea. He denies any fever chills or sweats. He has his ADRIAN drain in place. His ileostomy is functioning. Patient brought into the hospital for IV fluids due to severe dehydration. Patient seen and examined with Dr. steen PAST MEDICAL HISTORY: Crohn's with peritoneal abscess, Covid positive in April PAST SURGICAL HISTORY: As stated above MEDICATIONS: See list. ALLERGIES: See list. SOCIAL HISTORY: No illicit drug use. REVIEW OF SYSTEMS: CONSTITUTIONAL: Denies fever or chills. HEENT: Denies blurred vision, vision changes, or eye pain. Denies hemoptysis CARDIOVASCULAR: Denies chest pain or pressure. RESPIRATORY: No shortness of breath. GASTROINTESTINAL: See HPI for pertinent findings HEMATOLOGIC: Denies bleeding disorders. GENITOURINARY: Denies any blood in urine or increased urinary frequency. SKIN: Denies pruitis. Denies rash. PHYSICAL EXAM: VITAL SIGNS: Reviewed GENERAL: Well-developed in no acute distress. HEENT: No sclera icterus. Extraocular movements grossly intact. Moist buccal mucosa. Head is atraumatic, normocephalic. No nasal drainage. ABDOMEN: Soft. Obese. Nontender. Nondistended. Ileostomy with liquidy green output. ADRIAN drain with purulent drainage. NEUROLOGIC: Alert and oriented. Cranial nerves II through XII grossly intact. LABORATORY DATA: WBC 9.5 hemoglobin 9.6 platelets 312 Sodium 132 chloride 94 potassium 3.8 creatinine 1.82 Lactic acid 2.7 down to 1.0 Alk phos 241 Lipase 662 amylase 121 IMAGING: ASSESSMENT: 1. Dehydration 2. Exploratory laparotomy, small bowel resection, right colectomy and ileostomy placement on 06/21/2021 for abdominal fascial dehiscence, perforated small bowel and intra-abdominal abscess 3. History of Crohn's 4. Elevated lipase and amylase. No abdominal pain reported 5. Acute kidney injury 6. Hyponatremia PLAN: -Continue IV fluids -Give 1 L IV fluid bolus -Advance diet to regular -Antibiotic management per infectious disease. Infectious is consulted -Consult medical service for medical management -Continue supportive care -Repeat labs in a.m. -GI prophylaxis Pepcid and DVT prophylaxis subcu heparin Physician Garment Folder note has been reviewed by physician. Signing provider agrees with the documented findings, assessment, and plan of care. Past Medical History Past Medical History: No Reported History Additional Past Medical History / Comment(s): Chron's disease, recently had surgery for chron's with peritoneal abscess, covid + 05/17/21. History of Any Multi-Drug Resistant Organisms: None Reported Past Surgical History: Bowel Resection, Hernia Repair Additional Past Surgical History / Comment(s): 05/28/21 ileocolectomy with washout pf pertioneal abscess, R inguinal hernia repair. Past Anesthesia/Blood Transfusion Reactions: No Reported Reaction Past Psychological History: No Psychological Hx Reported Additional Psychological History / Comment(s): Pt recently at [facility] for rehab, was just home a few days. Pt states he left rehab too early, still having ambulation difficulties. He is using a walker. He has home care thru a company out of [place] but cannot recall their name. Smoking Status: Former smoker Past Alcohol Use History: Occasional Additional Past Alcohol Use History / Comment(s): Pt started smoking as a teen and quit in February 2021 Past Drug Use History: None Reported - Past Family History Father Family Medical History: No Reported History Additional Family Medical History / Comment(s): Father is healthy Mother Family Medical History: Eye Disorder Additional Family Medical History / Comment(s): Mother has glaucoma Medications and Allergies Home Medications Medication Instructions Recorded Confirmed Type Albuterol Sulfate [Albuterol 2 puff PO RT-Q6H PRN 06/19/21 07/28/21 History Sulfate Hfa] Ascorbic Acid [Vitamin C] 500 mg PO DAILY 06/19/21 07/28/21 History Cholecalciferol [Vitamin D3 (25 50 mcg PO DAILY 06/19/21 07/28/21 History Mcg = 1000 Iu)] Cefuroxime Axetil [Ceftin] 500 mg PO BID 14 Days #28 tab 07/18/21 07/28/21 Rx Sodium Bicarbonate Tab 650 mg PO QID #120 tab 07/18/21 07/28/21 Rx metroNIDAZOLE [Flagyl] 500 mg PO TID 14 Days #56 tab 07/18/21 07/28/21 Rx traMADol HCL [Ultram] 50 mg PO Q8HR PRN 3 Days #9 tab 07/18/21 07/28/21 Rx Melatonin 5 mg PO HS PRN 07/28/21 07/28/21 History Ondansetron [Zofran] 4 mg PO Q4H PRN 07/28/21 07/28/21 History Allergies Allergy/AdvReac Type Severity Reaction Status Date / Time acetaminophen [From Tylenol] Allergy Chest Pain Verified 07/28/21 16:51 Surgical - Exam Vital Signs Temp Pulse Resp BP Pulse Ox 97.0 F L 109 H 20 102/72 100 07/28/21 14:42 07/28/21 14:42 07/28/21 14:42 07/28/21 14:42 07/28/21 14:42 Results - Labs 07/28/21 19:14 07/28/21 19:14 Abnormal Lab Results - Last 24 Hours (Table) 07/28/21 07/28/21 07/28/21 Range/Units 16:34 19:14 19:14 RBC 3.18 L (4.30-5.90) m/uL Hgb 9.6 L D (13.0-17.5) gm/dL Hct 28.7 L (39.0-53.0) % RDW 16.5 H (11.5-15.5) % Neutrophils # 8.3 H (1.3-7.7) k/uL Lymphocytes # 0.7 L (1.0-4.8) k/uL Sodium 132 L (137-145) mmol/L Chloride 94 L (98-107) mmol/L Carbon Dioxide 18 L (22-30) mmol/L BUN 25 H (9-20) mg/dL Creatinine 1.82 H (0.66-1.25) mg/dL Plasma Lactic Acid Arvind 2.7 H* (0.7-2.0) mmol/L Alkaline Phosphatase 241 H (38-126) U/L Amylase 121 H (30-110) U/L Lipase 662 H (23-300) U/L Diabetes panel 07/28/21 Range/Units 19:14 Sodium 132 L (137-145) mmol/L Potassium 3.8 (3.5-5.1) mmol/L Chloride 94 L (98-107) mmol/L Carbon Dioxide 18 L (22-30) mmol/L BUN 25 H (9-20) mg/dL Creatinine 1.82 H (0.66-1.25) mg/dL Glucose 85 (74-99) mg/dL Calcium 8.6 (8.4-10.2) mg/dL AST 30 (17-59) U/L ALT 12 (4-49) U/L Alkaline Phosphatase 241 H (38-126) U/L Total Protein 7.2 (6.3-8.2) g/dL Albumin 3.8 (3.5-5.0) g/dL Calcium panel 07/28/21 Range/Units 19:14 Calcium 8.6 (8.4-10.2) mg/dL Albumin 3.8 (3.5-5.0) g/dL Pituitary panel 07/28/21 Range/Units 19:14 Sodium 132 L (137-145) mmol/L Potassium 3.8 (3.5-5.1) mmol/L Chloride 94 L (98-107) mmol/L Carbon Dioxide 18 L (22-30) mmol/L BUN 25 H (9-20) mg/dL Creatinine 1.82 H (0.66-1.25) mg/dL Glucose 85 (74-99) mg/dL Calcium 8.6 (8.4-10.2) mg/dL Adrenal panel 07/28/21 Range/Units 19:14 Sodium 132 L (137-145) mmol/L Potassium 3.8 (3.5-5.1) mmol/L Chloride 94 L (98-107) mmol/L Carbon Dioxide 18 L (22-30) mmol/L BUN 25 H (9-20) mg/dL Creatinine 1.82 H (0.66-1.25) mg/dL Glucose 85 (74-99) mg/dL Calcium 8.6 (8.4-10.2) mg/dL Total Bilirubin 1.0 (0.2-1.3) mg/dL AST 30 (17-59) U/L ALT 12 (4-49) U/L Alkaline Phosphatase 241 H (38-126) U/L Total Protein 7.2 (6.3-8.2) g/dL Albumin 3.8 (3.5-5.0) g/dL
[2021-07-29] MEDS: FAMOTIDINE 20 MG TAB PO SCH ×2 (13:06→21:19)
--- NOTE | 2021-07-29 14:40 | P.CN ---
Psychiatric Consult - . 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 REASON FOR REFERRAL: Psychiatry was consulted for depression and anxiety HISTORY OF PRESENT ILLNESS: The patient presented to the hospital and was admitted under surgery services for complications regarding his colostomy. Patient has a history of depression and anxiety however has not been on medications. Patient was seen by commercial loan underwriter for psychiatric consultation in his previous visit and it was recommended the patient start Remeron however patient did not take the medication while he was in the hospital and was discharged home. Patient was seen today for bedside and agreeable to seek a commercial loan underwriter. He appears to have a mild improvement in his affect since the previous time commercial loan underwriter saw him. He does however state that he was "scared to take the medications" referring to the Remeron in his previous hospitalization. He states that he has been "in my own head" and talked about racing thoughts and mainly anxiety. He states that he has been "over thinking" and also worrying. He states that mainly its regarding his surgical site and his medical condition. He claims he is still having poor appetite and this has been going on since April and states that the taste of food has been very bland for him and relates this possibly back to his covid infection. He claims that his mood has mildly improved because his condition has been improving however continues to mainly focus on his anxiety. He states that his sleep is about 3-4 hours while taking melatonin. He states that he is having some chronic anxiety. At this time patient denies any suicidal or homical ideations, intent or plan. Patient denies any auditory, visual hallucinations and denies any paranoia or delusions. Patients admits to using no recreational drugs or cigarettes. PAST PSYCHIATRIC HISTORY: Patient has a a history of anxiety and depression. Patient denies being on any psychiatric medications, however patient was prescribed Remeron and his last hospitalization. Patient denies any previous psychiatric hospitalizations. Patient denies any psychiatric outpatient follow- up. Patient denies any history of suicide attempts in the past. PAST MEDICAL HISTORY: As per medicine H&P. ALLERGIES: as per EMR. CHEMICAL DEPENDENCY HISTORY: as per HPI. FAMILY PSYCHIATRIC/SUBSTANCE USE HISTORY: denies SOCIAL HISTORY: Patient was born and raised in [facility]. He states that he moved to [place] and then moved back to [place]. He claims that he completed high school and did "2 college degrees". 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 He is currently lives at house and has 1 kid. He denies any legal history. MENTAL STATUS EXAM: General Appearance: Patient appears to be overweight, long kimble, stated age is alert, pleasant, and attempts to be cooperative. Patient appears to have fair hygiene and grooming wearing hospital gown with fair eye contact. Behavior: Patient is calmly lying in bed without any agitated behavior. Mainly anxious. Cooperative. Speech: Patient's speech is fluent and nonpressured. Mood/Affect: Patient reports their mood is "depressed sometimes mainly anxious", affect is congruent Suicidality/Homicidality: Patient denies having any suicidal or homicidal ideation intent or plan. Perceptions: Patient denies any visual hallucinations and denies any auditory hallucinations Though content/process: There is no evidence of any delusional thought content and thought process is linear and goal-directed. Rambles at times. Memory and concentration: AOX3, grossly intact for the purposes of this session. Can spell "WORLD" backwards Judgment and insight: Fair IMPRESSIONS: Major depressive disorder, mild Generalized anxiety disorder PLAN: -At this time patient DOES NOT meet criteria for inpatient psychiatric admission. -Would recommend the following medication changes/additions: Change melatonin to scheduled 5 mg daily at bedtime for sleep. Added Remeron 15 mg daily at bedtime for mood/anxiety/appetite/insomnia. Added BuSpar 10 mg 3 times a day when necessary for anxiety. Spoke with patient in great length about the side effects and benefits of these medications and patient claims that he is agreeable to take them. Consider adding on nabilone as a appetite stimulant, will defer to primary team. -propagation worker to provide patient with outpatient mental health/psychiatry resources for appropriate follow up upon discharge. Patient is interested in getting involved in outpatient therapy. -Refining Equipment Operator spoke with patient about substance abuse and the harmful effects on medical and mental health, patient verbally understood and agreed. -Communicated plan to patient's nurse -Psychiatry will follow up on patient on Sunday if he is not discharged by then. If patient is discharged then make sure he has outpatient MH providers list to arrange for follow up. - Any urgent concerns or questions, please contact the mental health unit. 07/29/21 14:34
[2021-07-29] MEDS: metroNIDAZOLE 500 MG TAB PO SCH ×2 (15:42→21:19)
[2021-07-29] MEDS: HEPARIN SODIUM,PORCINE/PF 5,000 UNIT/0.5 ML SYRINGE SQ SCH (21:18)
[2021-07-29] MEDS: MELATONIN 5 MG TABLET PO SCH (21:19)
[2021-07-29] MEDS: MIRTAZAPINE 15 MG TAB PO SCH (21:28)
--- NOTE | 2021-07-29 23:27 | P.CONS ---
History of Present Illness - Reason for Consult Consult date: 07/29/21 Abdominal abscess Requesting physician: Marco A Marsh - Chief Complaint Weakness and decreased oral intake x few days - History of Present Illness Patient is a 41-year male with a past medical history significant for colectomy and ileostomy and drainage of abdominal abscess in this patient did have ileostomy and recently prolonged hospital stay patient abdominal culture on last visit was positive for E. coli and anaerobes and the patient was treated with Rocephin and Flagyl subsequent discharged home on oral Ceftin and Flagyl with the patient was still taking patient did have a follow-up visit with Dr. Slaughter and the patient apparently was noticed to be dehydrated subsequently has been sent to the ER for IV fluid the patient also have a CT of abdominal pelvis completed which shows persistent right upper quadrant fluid collection with ADRIAN drain within the fluid collection postsurgical changes of the bowel with ostomy patient was subsequently admitted to hospital for IV fluid infectious disease was consulted for further management of antibiotic therapy. On today's evaluation that is 07/29/2021 the patient denies having any fever or any chills, patient denies having abdominal pain has been complaining about the midline stitches which is scheduled to be removed today patient did mention decreased oral intake however denies having any vomiting did have output in his colostomy bag and the patient did have minimal output in the ADRIAN drain Review of Systems Positive point has been mentioned in the HPI rest of the systems are negative Past Medical History Past Medical History: No Reported History Additional Past Medical History / Comment(s): Chron's disease, recently had surgery for chron's with peritoneal abscess, covid + 05/17/21. History of Any Multi-Drug Resistant Organisms: None Reported Past Surgical History: Bowel Resection, Hernia Repair Additional Past Surgical History / Comment(s): 05/28/21 ileocolectomy with washout pf pertioneal abscess, R inguinal hernia repair. Past Anesthesia/Blood Transfusion Reactions: No Reported Reaction Past Psychological History: No Psychological Hx Reported Additional Psychological History / Comment(s): Pt recently at [facility] for rehab, was just home a few days. Pt states he left rehab too early, still having ambulation difficulties. He is using a walker. He has home care thru a company out of [place] but cannot recall their name. Smoking Status: Former smoker Past Alcohol Use History: Occasional Additional Past Alcohol Use History / Comment(s): Pt started smoking as a teen and quit in February 2021 Past Drug Use History: None Reported - Past Family History Father Family Medical History: No Reported History Additional Family Medical History / Comment(s): Father is healthy Mother Family Medical History: Eye Disorder Additional Family Medical History / Comment(s): Mother has glaucoma Medications and Allergies Home Medications Medication Instructions Recorded Confirmed Type Albuterol Sulfate [Albuterol 2 puff PO RT-Q6H PRN 06/19/21 07/28/21 History Sulfate Hfa] Ascorbic Acid [Vitamin C] 500 mg PO DAILY 06/19/21 07/28/21 History Cholecalciferol [Vitamin D3 (25 50 mcg PO DAILY 06/19/21 07/28/21 History Mcg = 1000 Iu)] Cefuroxime Axetil [Ceftin] 500 mg PO BID 14 Days #28 tab 07/18/21 07/28/21 Rx Sodium Bicarbonate Tab 650 mg PO QID #120 tab 07/18/21 07/28/21 Rx metroNIDAZOLE [Flagyl] 500 mg PO TID 14 Days #56 tab 07/18/21 07/28/21 Rx traMADol HCL [Ultram] 50 mg PO Q8HR PRN 3 Days #9 tab 07/18/21 07/28/21 Rx Melatonin 5 mg PO HS PRN 07/28/21 07/28/21 History Ondansetron [Zofran] 4 mg PO Q4H PRN 07/28/21 07/28/21 History Allergies Allergy/AdvReac Type Severity Reaction Status Date / Time acetaminophen [From Tylenol] Allergy Chest Pain Verified 07/28/21 16:51 Physical Exam Vitals: Vital Signs Temp Pulse Pulse Resp BP BP BP 07/29/21 07:37 97.5 F L 81 20 119/83 07/29/21 01:26 98.0 F 91 18 122/85 07/28/21 21:27 98.2 F 81 18 117/80 07/28/21 20:13 93 16 118/84 07/28/21 16:50 98.7 F 92 18 111/78 07/28/21 14:42 97.0 F L 109 H 20 102/72 Pulse Ox 07/29/21 07:37 98 07/29/21 01:26 99 07/28/21 21:27 100 07/28/21 20:13 98 07/28/21 16:50 99 07/28/21 14:42 100 Intake and Output 07/28/21 07/29/21 07/29/21 22:59 06:59 14:59 Intake Total 118 Output Total 175 150 250 Balance -175 -150 -132 Intake: Oral 118 Output: Urine 175 Stool 150 250 Other: Weight 103.873 kg GENERAL DESCRIPTION: Middle-aged male lying in bed, no distress. No tachypnea or accessory muscle of respiration use. HEENT: Shows Pallor , no scleral icterus. Oral mucous membrane is dry. No pharyngeal erythema or thrush NECK: Trachea central, no thyromegaly. LUNGS: Unlabored breathing. Clear to auscultation anteriorly. No wheeze or crackle. HEART: S1, S2, regular rate and rhythm. No loud murmur ABDOMEN: Soft, midline incision is currently dressed, no tenderness EXTREMITIES: No edema of feet. SKIN: No rash, no masses palpable. NEUROLOGICAL: The patient is awake, alert, oriented x3, mood and affect normal. Results CBC & Chem 7: 07/28/21 19:14 07/28/21 19:14 Labs: Abnormal Lab Results - Last 24 Hours (Table) 07/28/21 07/28/21 07/28/21 Range/Units 16:34 19:14 19:14 RBC 3.18 L (4.30-5.90) m/uL Hgb 9.6 L D (13.0-17.5) gm/dL Hct 28.7 L (39.0-53.0) % RDW 16.5 H (11.5-15.5) % Neutrophils # 8.3 H (1.3-7.7) k/uL Lymphocytes # 0.7 L (1.0-4.8) k/uL Sodium 132 L (137-145) mmol/L Chloride 94 L (98-107) mmol/L Carbon Dioxide 18 L (22-30) mmol/L BUN 25 H (9-20) mg/dL Creatinine 1.82 H (0.66-1.25) mg/dL Plasma Lactic Acid Arvind 2.7 H* (0.7-2.0) mmol/L Alkaline Phosphatase 241 H (38-126) U/L Amylase 121 H (30-110) U/L Lipase 662 H (23-300) U/L Assessment and Plan (1) Intra-abdominal abscess Current Visit: Yes Status: Acute Code(s): K65.1 - PERITONEAL ABSCESS SNOMED Code(s): 90604638 Plan: 1patient with history of abdominal abscess with recent prolonged hospital stay drainage of the abscess with abdominal culture positive for E. coli and anaerobes for the patient has received prolonged IV course and subsequently has been on oral Ceftin and Flagyl now being admitted to hospital with dehydration from high output ileostomy and decreased oral intake. 2patient did have repeat CT abdominal pelvis with issues right upper quadrant fluid collection with a ADRIAN drain inside the fluid and it has significantly decreased in size as the CT was reviewed with radiologist. 3patient currently with no fever white count is normal and does not look toxic. 4patient will be started on Rocephin and Flagyl with the plan to finish therapy with oral Ceftin and Flagyl. 5IV fluid We will follow on clinical condition and cultures to further adjust medication if needed Thank you for this consultation will follow this patient along with you Time with Patient: Greater than 30
[2021-07-30] MEDS: SODIUM CHLORIDE 0.9% 1,000 ML IV SCH ×3 (06:09→19:41)
[2021-07-30] MEDS: FAMOTIDINE 20 MG TAB PO SCH ×2 (07:41→19:47)
[2021-07-30] MEDS: HEPARIN SODIUM,PORCINE/PF 5,000 UNIT/0.5 ML SYRINGE SQ SCH ×2 (07:42→19:59)
[2021-07-30] MEDS: metroNIDAZOLE 500 MG TAB PO SCH ×3 (07:42→21:05)
--- NOTE | 2021-07-30 11:21 | P.PN ---
Progress Note - Text Progress Note Date: 07/30/21 The patient feels better today. He denies any significant abdominal pain. There is a minimal output through his ADRIAN drain. However the ADRIAN drain still has purulent fluid. On exam vital signs are stable. Abdomen soft. Retention sutures were removed yesterday. Ileostomy is functioning there is a large amount of liquid stool in the ileostomy. Improving dehydration. Patient is encouraged to ambulate and increase his by mouth intake.
[2021-07-30 11:44] LABS: Basophils # (A) 0.04 X 10*3/uL (0.00-0.10); Basophils % (A) 1.1 %; Eosinophils # (A) 0.12 X 10*3/uL (0.04-0.35); Eosinophils % (A) 3.2 %; HCT 27.6 % (39.6-50.0); HGB 8.3 g/dL (13.0-17.0); Immature Grans, Automated 1.3 %; Lymphocytes % (A) 21.3 %; MCH 28.7 pg (27.0-32.0); MCHC 30.1 g/dL (32.0-37.0); MCV 95.5 fL (80.0-97.0); Mean Platelet Volume 10.5 fL (9.5-12.2); Monocytes # (A) 0.28 X 10*3/uL (0.20-1.00); Monocytes % (A) 7.4 %; NRBC Per 100 WBC 0 /100 WBCS (0.0-0.0); Neutrophils # (A) 2.47 X 10*3/uL (1.80-7.70); Neutrophils % (A) 65.7 %; Platelet Count 198 X 10*3/uL (140-440); RBC 2.89 X 10*6/uL (4.40-5.60); RDW 16.1 % (11.5-14.5); WBC 3.76 X 10*3/uL (4.50-10.00)
[2021-07-30 11:53] LABS: African American GFR (CKD) 68.8 (60.0-200.0); Anion Gap 14.6 mmol/L (10.00-18.00); BUN/Creat Ratio 9.17 Ratio (12.00-20.00); Blood Urea Nitrogen 13.3 mg/dL (9.0-27.0); Carbon Dioxide 18.5 mmol/L (20.0-27.5); Non-African American GFR(CKD) 59.4 (60.0-200.0); Potassium 3.2 mmol/L (3.5-5.5)
[2021-07-30] MEDS ORDERED: Potassium Replacement Protocol 1 EACH MISC MISCELLANE PRN (19:09)
[2021-07-30] MEDS: MELATONIN 5 MG TABLET PO SCH (19:47)
[2021-07-30] MEDS: POTASSIUM CHLORIDE ER 20 MEQ TAB.ER PO SCH ×2 (19:47→21:06)
[2021-07-30] MEDS: MIRTAZAPINE 15 MG TAB PO SCH (19:47)
[2021-07-30] MEDS: ONDANSETRON 4 MG/2 ML VIAL IVP PRN (19:48)
[2021-07-30] MEDS ORDERED: POTASSIUM CHLORIDE ER 20 MEQ TAB.ER PO SCH (20:00)
--- NOTE | 2021-07-31 00:36 | P.PN ---
Subjective Progress Note Date: 07/30/21 Principal diagnosis: Intra-abdominal abscess Patient is a 41 year male with a past medical history significant for intra-abdominal abscess in this patient is status post colectomy and diverting ileostomy and the previous culture were positive for E. coli and anaerobes federico jiang has been admitted to the hospital for dehydration. On today's evaluation that is 07/30/2021, the patient denies having any fever or any chills, the patient is feeling slightly better today, patient denies having any nausea no vomiting no chest pain shortness of breath or cough abdominal pain is currently controlled Objective - Vital Signs Vital signs: Vital Signs Temp 98.0 F 07/30/21 14:35 Pulse 97 07/30/21 14:35 Resp 20 07/30/21 14:35 BP 113/80 07/30/21 14:35 Pulse Ox 100 07/30/21 14:35 Intake & Output 07/29/21 07/30/21 07/30/21 18:59 06:59 18:59 Intake Total 844 1120 Output Total 400 1125 1710 Balance 444 -1125 -590 Intake: Oral 844 1120 Output: Drainage 10 Abdomen 10 Urine 925 300 Stool 384 256 2356 Other: Voiding Method Urinal Urinal # Voids 1 - Exam GENERAL DESCRIPTION: Middle-aged male lying in bed in no distress RESPIRATORY SYSTEM: Unlabored breathing , decreased breath sounds at bases HEART: S1 S2 regular rate and rhythm , ABDOMEN: Soft , no tenderness, midline abdominal wound is open no significant slough tissue EXTREMITIES: No edema feet - Labs CBC & Chem 7: 07/30/21 07:35 07/30/21 07:35 Labs: Abnormal Lab Results - Last 24 Hours (Table) 07/30/21 07/30/21 Range/Units 07:35 07:35 WBC 3.76 L (4.50-10.00) X 10*3/uL RBC 2.89 L (4.40-5.60) X 10*6/uL Hgb 8.3 L (13.0-17.0) g/dL Hct 27.6 L (39.6-50.0) % MCHC 30.1 L (32.0-37.0) g/dL RDW 16.1 H (11.5-14.5) % Immature Gran # 0.05 H (0.00-0.04) X 10*3/uL Lymphocytes # 0.80 L (0.90-5.00) X 10*3/uL Potassium 3.2 L (3.5-5.5) mmol/L Carbon Dioxide 18.5 L (20.0-27.5) mmol/L Est GFR (CKD-EPI)NonAf 59.4 L (60.0-200.0) BUN/Creatinine Ratio 9.17 L (12.00-20.00) Ratio Calcium 8.0 L (8.7-10.3) mg/dL Lipase 135 H (14-60) U/L Assessment and Plan (1) Intra-abdominal abscess Current Visit: Yes Status: Acute Code(s): K65.1 - PERITONEAL ABSCESS SNOMED Code(s): 75089330 Plan: 1patient with history of abdominal abscess with recent prolonged hospital stay drainage of the abscess with abdominal culture positive for E. coli and anaerobes for the patient has received prolonged IV course and subsequently has been on oral Ceftin and Flagyl now being admitted to hospital with dehydration from high output ileostomy and decreased oral intake. 2patient did have repeat CT abdominal pelvis with issues right upper quadrant fluid collection with a ADRIAN drain inside the fluid and it has significantly decre ased in size as the CT was reviewed with radiologist. CT images were reviewed with the patient 3patient currently with no fever white count is normal and does not look toxic. 4patient to continue with Rocephin and Flagyl while inpatient, with the plan to finish therapy with oral Ceftin and Flagyl. 5IV fluid Time with Patient: Less than 30
[2021-07-31] MEDS: SODIUM CHLORIDE 0.9% 1,000 ML IV SCH ×3 (04:53→20:58)
[2021-07-31] MEDS: FAMOTIDINE 20 MG TAB PO SCH ×2 (07:43→20:57)
[2021-07-31] MEDS: HEPARIN SODIUM,PORCINE/PF 5,000 UNIT/0.5 ML SYRINGE SQ SCH ×2 (07:43→20:56)
[2021-07-31] MEDS: metroNIDAZOLE 500 MG TAB PO SCH ×3 (07:43→20:56)
--- NOTE | 2021-07-31 10:27 | P.HPIM ---
History of Present Illness H&P Date: 07/29/21 Chief Complaint: Dehydration 41 yo male presenting for evaluation of dehydration, nausea. Patient has had complicated recent medical history including ileostomy and abdominal infection requiring drain. He was sent from his general surgeon's office for admission for IV fluids. Patient denies fever. He denies abdominal pain. He has had some output from his ileostomy. There's been minimal output from the ADRIAN drain. Patient reports very poor oral intake since being discharged from the hospital; was seen at his primary surgeon's office with concerns for dehydration and malnutrition; patient is admitted to the hospital for rehydration Labs completed on admission revealed a WBC of 9.5, hemoglobin of 9.6, platelet count of 312, sodium 132, potassium 3.8, BUN/creatinine of 25/1.8 to; lactic acid level of 2.7; mild elevation in amylase and lipase at 121, 662 Review of Systems REVIEW OF SYSTEMS: CONSTITUTIONAL: No fever, no malaise, no fatigue. HEENT: No recent visual problems or hearing problems. Denied any sore throat. CARDIOVASCULAR: No chest pain, orthopnea, PND, no palpitations, no syncope. PULMONARY: No shortness of breath, no cough, no hemoptysis. GASTROINTESTINAL: No diarrhea, no nausea, no vomiting, no abdominal pain. NEUROLOGICAL: No headaches, no weakness, no numbness. HEMATOLOGICAL: Denies any bleeding or petechiae. GENITOURINARY: Denies any burning micturition, frequency, or urgency. MUSCULOSKELETAL/RHEUMATOLOGICAL: Denies any joint pain, swelling, or any muscle pain. ENDOCRINE: Denies any polyuria or polydipsia. The rest of the 14-point review of systems is negative. Past Medical History Past Medical History: No Reported History Additional Past Medical History / Comment(s): Chron's disease, recently had surgery for chron's with peritoneal abscess, covid + 05/17/21. History of Any Multi-Drug Resistant Organisms: None Reported Past Surgical History: Bowel Resection, Hernia Repair Additional Past Surgical History / Comment(s): 05/28/21 ileocolectomy with washout pf pertioneal abscess, R inguinal hernia repair. Past Anesthesia/Blood Transfusion Reactions: No Reported Reaction Past Psychological History: No Psychological Hx Reported Additional Psychological History / Comment(s): Pt recently at [facility] for rehab, was just home a few days. Pt states he left rehab too early, still having ambulation difficulties. He is using a walker. He has home care thru a company out of [place] but cannot recall their name. Smoking Status: Former smoker Past Alcohol Use History: Occasional Additional Past Alcohol Use History / Comment(s): Pt started smoking as a teen and quit in February 2021 Past Drug Use History: None Reported - Past Family History Father Family Medical History: No Reported History Additional Family Medical History / Comment(s): Father is healthy Mother Family Medical History: Eye Disorder Additional Family Medical History / Comment(s): Mother has glaucoma Medications and Allergies Home Medications Medication Instructions Recorded Confirmed Type Albuterol Sulfate [Albuterol 2 puff PO RT-Q6H PRN 06/19/21 07/28/21 History Sulfate Hfa] Ascorbic Acid [Vitamin C] 500 mg PO DAILY 06/19/21 07/28/21 History Cholecalciferol [Vitamin D3 (25 50 mcg PO DAILY 06/19/21 07/28/21 History Mcg = 1000 Iu)] Cefuroxime Axetil [Ceftin] 500 mg PO BID 14 Days #28 tab 07/18/21 07/28/21 Rx Sodium Bicarbonate Tab 650 mg PO QID #120 tab 07/18/21 07/28/21 Rx metroNIDAZOLE [Flagyl] 500 mg PO TID 14 Days #56 tab 07/18/21 07/28/21 Rx traMADol HCL [Ultram] 50 mg PO Q8HR PRN 3 Days #9 tab 07/18/21 07/28/21 Rx Melatonin 5 mg PO HS PRN 07/28/21 07/28/21 History Ondansetron [Zofran] 4 mg PO Q4H PRN 07/28/21 07/28/21 History Allergies Allergy/AdvReac Type Severity Reaction Status Date / Time acetaminophen [From Tylenol] Allergy Chest Pain Verified 07/28/21 16:51 Physical Exam Vitals: Vital Signs Temp Pulse Pulse Resp BP BP BP 07/29/21 07:37 97.5 F L 81 20 119/83 07/29/21 01:26 98.0 F 91 18 122/85 07/28/21 21:27 98.2 F 81 18 117/80 07/28/21 20:13 93 16 118/84 07/28/21 16:50 98.7 F 92 18 111/78 07/28/21 14:42 97.0 F L 109 H 20 102/72 Pulse Ox 07/29/21 07:37 98 07/29/21 01:26 99 07/28/21 21:27 100 07/28/21 20:13 98 07/28/21 16:50 99 07/28/21 14:42 100 Intake and Output 07/28/21 07/29/21 07/29/21 22:59 06:59 14:59 Intake Total 118 Output Total 175 150 250 Balance -175 -150 -132 Intake: Oral 118 Output: Urine 175 Stool 150 250 Other: Weight 103.873 kg PHYSICAL EXAMINATION: GENERAL: The patient is alert and oriented x3, not in any acute distress. Well developed, well nourished. HEENT: Pupils are round and equally reacting to light. EOMI. No scleral icterus. No conjunctival pallor. Normocephalic, atraumatic. No pharyngeal erythema. No thyromegaly. CARDIOVASCULAR: S1 and S2 present. No murmurs, rubs, or gallops. PULMONARY: Chest is clear to auscultation, no wheezing or crackles. ABDOMEN: Soft, nontender, nondistended, normoactive bowel sounds. No palpable organomegaly. MUSCULOSKELETAL: No joint swelling or deformity. EXTREMITIES: No cyanosis, clubbing, or pedal edema. NEUROLOGICAL: Gross neurological examination did not reveal any focal deficits. SKIN: No rashes. Results CBC & Chem 7: 07/30/21 07:35 07/30/21 07:35 Labs: Abnormal Lab Results - Last 24 Hours (Table) 07/28/21 07/28/21 07/28/21 Range/Units 16:34 19:14 19:14 RBC 3.18 L (4.30-5.90) m/uL Hgb 9.6 L D (13.0-17.5) gm/dL Hct 28.7 L (39.0-53.0) % RDW 16.5 H (11.5-15.5) % Neutrophils # 8.3 H (1.3-7.7) k/uL Lymphocytes # 0.7 L (1.0-4.8) k/uL Sodium 132 L (137-145) mmol/L Chloride 94 L (98-107) mmol/L Carbon Dioxide 18 L (22-30) mmol/L BUN 25 H (9-20) mg/dL Creatinine 1.82 H (0.66-1.25) mg/dL Plasma Lactic Acid Arvind 2.7 H* (0.7-2.0) mmol/L Alkaline Phosphatase 241 H (38-126) U/L Amylase 121 H (30-110) U/L Lipase 662 H (23-300) U/L Assessment and Plan Assessment: 1. Acute renal injury/dehydration - Patient has been placed on IV fluid hydration with normal saline at a rate of 75 mL an hour; we will monitor strict AAMIR's, daily weights, renal function and electrolytes; avoid nephrotoxins and hypotension 2. Lactic acidosis, likely related to Poor oral intake/adult failure to thrive versus intra-abdominal abscess; patient has a lactic acid level of 2.7 upon admission, improving to 1.0 with IV fluid resuscitation; patient had CT of the abdomen done which reveals right upper cord and fluid collection; ID has been consulted and recommendations are pending 3. Status post exploratory laparotomy with small bowel resection, right colectomy and ileostomy placement on 06/21/2021 for abdominal fascial dehiscence, perforated small bowel and intra-abdominal abscess 4. History of Crohn's disease; as above 5. Hyponatremia; IV fluid hydration as indicated above; we will monitor electrolytes closely and make recommendations as indicated 6. Elevated lipase/amylase; no complaining of epigastric discomfort; likely related to dehydration; we will monitor amylase and lipase DVT prophylaxis; SCDs CODE STATUS; full code
--- NOTE | 2021-07-31 10:42 | P.PN ---
Subjective Progress Note Date: 07/30/21 Principal diagnosis: Acute renal injury/dehydration Poor oral intake/adult failure to thrive Intra-abdominal abscess/ ADRIAN drain in place Electrolyte imbalance 41-year-old male patient with recent history of ileostomy and right upper quadrant abscess was admitted to the hospital for markedly vertiginous total intake and I output ileostomy with acute renal injury and dehydration -- patient with history of abdominal abscess with recent prolonged hospital stay with drainage of the abscess with abdominal culture positive for E. coli and anaerobes; patient received prolonged IV course followed by oral Ceftin and Flagyl - repeat CT abdominal pelvis reveals right upper quadrant fluid collection with a ADRIAN drain inside the fluid and it has significantly decreased in size. --patient is placed on Rocephin and Flagyl with the plan to finish therapy with oral Ceftin and Flagyl, per ID recommendations. -- Patient has been evaluated by psych is placed on Remeron 15 mg by mouth daily at bedtime along with BuSpar 10 mg by mouth 3 times a day when necessary for anxiety --- Consult dietary for calorie count and further recommendations Objective - Vital Signs Vital signs: Vital Signs Temp 98.2 F 07/30/21 07:00 Pulse 87 07/30/21 08:00 Resp 19 07/30/21 08:00 BP 102/70 07/30/21 07:00 Pulse Ox 98 07/30/21 07:00 Intake & Output 07/29/21 07/30/21 07/30/21 18:59 06:59 18:59 Intake Total 844 640 Output Total 400 1125 200 Balance 444 -1125 440 Intake: Oral 844 640 Output: Urine 925 Stool 400 200 200 Other: Voiding Method Urinal Urinal # Voids 1 - Exam GENERAL: The patient is alert and oriented x3, not in any acute distress. Well developed, well nourished. HEENT: Pupils are round and equally reacting to light. EOMI. No scleral icterus. No conjunctival pallor. Normocephalic, atraumatic. No pharyngeal erythema. No thyromegaly. CARDIOVASCULAR: S1 and S2 present. No murmurs, rubs, or gallops. PULMONARY: Chest is clear to auscultation, no wheezing or crackles. ABDOMEN: Soft, nontender, nondistended, normoactive bowel sounds. No palpable organomegaly. MUSCULOSKELETAL: No joint swelling or deformity. EXTREMITIES: No cyanosis, clubbing, or pedal edema. NEUROLOGICAL: Gross neurological examination did not reveal any focal deficits. SKIN: No rashes. - Labs CBC & Chem 7: 07/30/21 07:35 07/30/21 07:35 Labs: Abnormal Lab Results - Last 24 Hours (Table) 07/30/21 07/30/21 Range/Units 07:35 07:35 WBC 3.76 L (4.50-10.00) X 10*3/uL RBC 2.89 L (4.40-5.60) X 10*6/uL Hgb 8.3 L (13.0-17.0) g/dL Hct 27.6 L (39.6-50.0) % MCHC 30.1 L (32.0-37.0) g/dL RDW 16.1 H (11.5-14.5) % Immature Gran # 0.05 H (0.00-0.04) X 10*3/uL Lymphocytes # 0.80 L (0.90-5.00) X 10*3/uL Potassium 3.2 L (3.5-5.5) mmol/L Carbon Dioxide 18.5 L (20.0-27.5) mmol/L Est GFR (CKD-EPI)NonAf 59.4 L (60.0-200.0) BUN/Creatinine Ratio 9.17 L (12.00-20.00) Ratio Calcium 8.0 L (8.7-10.3) mg/dL Lipase 135 H (14-60) U/L Assessment and Plan Assessment: 1. Acute renal injury/dehydration - Patient has been placed on IV fluid hydration with normal saline at a rate of 75 mL an hour; we will monitor strict AAMIR's, daily weights, renal function and electrolytes; avoid nephrotoxins and hypotension 2. Lactic acidosis, likely related to Poor oral intake/adult failure to thrive versus intra-abdominal abscess; patient has a lactic acid level of 2.7 upon admission, improving to 1.0 with IV fluid resuscitation; patient had CT of the abdomen done which reveals right upper cord and fluid collection; ID has been consulted and recommendations are pending 3. Status post exploratory laparotomy with small bowel resection, right colectomy and ileostomy placement on 06/21/2021 for abdominal fascial dehiscence, perforated small bowel and intra-abdominal abscess 4. History of Crohn's disease; as above 5. Hyponatremia; IV fluid hydration as indicated above; we will monitor electrolytes closely and make recommendations as indicated 6. Elevated lipase/amylase; no complaining of epigastric discomfort; likely related to dehydration; we will monitor amylase and lipase DVT prophylaxis; SCDs CODE STATUS; full code
[2021-07-31 11:23] LABS: Anisocytosis Slight; Basophils % (A) 0 %; Eosinophils # (A) 0.1 k/uL (0-0.7); Eosinophils % (A) 3 %; HCT 27.5 % (39.0-53.0); Hypochromasia Slight; Lymphocytes # (A) 0.7 k/uL (1.0-4.8); Lymphocytes % (A) 19 %; MCH 30.7 pg (25.0-35.0); MCHC 32.7 g/dL (31.0-37.0); MCV 94.1 fL (80.0-100.0); Mean Platelet Volume 7.5; Monocytes # (A) 0.2 k/uL (0-1.0); Monocytes % (A) 6 %; Neutrophils # (A) 2.6 k/uL (1.3-7.7); Neutrophils % (A) 68 %; Platelet Count 197 k/uL (150-450); RBC 2.92 m/uL (4.30-5.90); RDW 16.5 % (11.5-15.5); WBC 3.8 k/uL (3.8-10.6)
[2021-07-31 11:32] LABS: African American GFR (CKD) 74 (>60 ml/min/1.73 sqM); Anion Gap 8 mmol/L; Blood Urea Nitrogen 9 mg/dL (9-20); Calcium 7.7 mg/dL (8.4-10.2); Carbon Dioxide 18 mmol/L (22-30); Chloride 111 mmol/L (98-107); Glucose 94 mg/dL (74-99); Lipase 458 U/L (23-300); Non-African American GFR(CKD) 64 (>60 ml/min/1.73 sqM); Potassium 3.5 mmol/L (3.5-5.1); Sodium 137 mmol/L (137-145)
--- NOTE | 2021-07-31 11:36 | P.PN ---
Progress Note - Text Progress Note Date: 07/31/21 Patient feels better today. He denies any significant abdominal pain. On exam vital signs are stable. Abdomen is soft. Ileostomy is functioning well. Midline wound is clean. The patient's potassium will be replaced today. His ileostomy his high output. We will try Imodium to slow down the output.
[2021-07-31] MEDS: LOPERAMIDE 2 MG CAP PO SCH ×3 (12:43→20:57)
[2021-07-31] MEDS: ONDANSETRON 4 MG/2 ML VIAL IVP PRN (16:05)
--- NOTE | 2021-07-31 17:59 | P.PN ---
Subjective Progress Note Date: 07/31/21 Principal diagnosis: Intra-abdominal abscess Patient is a 41 year male with a past medical history significant for intra-abdominal abscess in this patient is status post colectomy and diverting ileostomy and the previous culture were positive for E. coli and anaerobes federico jiang has been admitted to the hospital for dehydration. On today's evaluation that is 07/31/2021, the patient remains to be afebrile, the patient denies having any nausea no vomiting and no abdominal pain , the patient denies chest pain shortness of breath or cough Objective - Vital Signs Vital signs: Vital Signs Temp 98.0 F 07/31/21 14:23 Pulse 95 07/31/21 14:23 Resp 20 07/31/21 14:23 BP 108/78 07/31/21 14:23 Pulse Ox 99 07/31/21 14:23 Intake & Output 07/30/21 07/31/21 07/31/21 18:59 06:59 18:59 Intake Total 1120 1074 Output Total 2210 705 1250 Balance -1090 -705 -176 Intake: Oral 1120 1074 Output: Drainage 10 5 Abdomen 10 5 Urine 300 450 500 Stool 1900 250 400 Urine/Stool Mix 350 Other: Voiding Method Urinal Urinal # Voids 3 - Exam GENERAL DESCRIPTION: Middle-aged male lying in bed in no distress RESPIRATORY SYSTEM: Unlabored breathing , decreased breath sounds at bases HEART: S1 S2 regular rate and rhythm , ABDOMEN: Soft , no tenderness, midline abdominal wound is open no significant slough tissue EXTREMITIES: No edema feet - Labs CBC & Chem 7: 07/31/21 11:03 07/31/21 11:03 Labs: Abnormal Lab Results - Last 24 Hours (Table) 07/31/21 07/31/21 Range/Units 11:03 11:03 RBC 2.92 L (4.30-5.90) m/uL Hgb 9.0 L (13.0-17.5) gm/dL Hct 27.5 L (39.0-53.0) % RDW 16.5 H (11.5-15.5) % Lymphocytes # 0.7 L (1.0-4.8) k/uL Chloride 111 H (98-107) mmol/L Carbon Dioxide 18 L (22-30) mmol/L Creatinine 1.37 H (0.66-1.25) mg/dL Calcium 7.7 L (8.4-10.2) mg/dL Lipase 458 H (23-300) U/L Assessment and Plan (1) Intra-abdominal abscess Current Visit: Yes Status: Acute Code(s): K65.1 - PERITONEAL ABSCESS SNOMED Code(s): 31087321 Plan: 1patient with history of abdominal abscess with recent prolonged hospital stay drainage of the abscess with abdominal culture positive for E. coli and an aerobes for the patient has received prolonged IV course and subsequently has been on oral Ceftin and Flagyl now being admitted to hospital with dehydration from high output ileostomy and decreased oral intake. 2patient did have repeat CT abdominal pelvis with issues right upper quadrant fluid collection with a ADRIAN drain inside the fluid and it has significantly decreased in size as the CT was reviewed with radiologist. 3 patient to continue with Rocephin and Flagyl while inpatient, with the plan to finish therapy with oral Ceftin and Flagyl. Family at the bedside questions were answered Time with Patient: Less than 30
[2021-07-31] MEDS: MIRTAZAPINE 15 MG TAB PO SCH (20:56)
[2021-07-31] MEDS: MELATONIN 5 MG TABLET PO SCH (20:57)
--- NOTE | 2021-08-01 00:43 | P.PN ---
Subjective Progress Note Date: 07/31/21 Principal diagnosis: Acute renal injury/dehydration Poor oral intake/adult failure to thrive Intra-abdominal abscess/ ADRIAN drain in place Electrolyte imbalance 41-year-old male patient with recent history of ileostomy and right upper quadrant abscess was admitted to the hospital for markedly vertiginous total intake and I output ileostomy with acute renal injury and dehydration -- patient with history of abdominal abscess with recent prolonged hospital stay with drainage of the abscess with abdominal culture positive for E. coli and anaerobes; patient received prolonged IV course followed by oral Ceftin and Flagyl - repeat CT abdominal pelvis reveals right upper quadrant fluid collection with a ADRIAN drain inside the fluid and it has significantly decreased in size. --patient is placed on Rocephin and Flagyl with the plan to finish therapy with oral Ceftin and Flagyl, per ID recommendations. -- Patient has been evaluated by psych is placed on Remeron 15 mg by mouth daily at bedtime along with BuSpar 10 mg by mouth 3 times a day when necessary for anxiety --- Consult dietary for calorie count and further recommendations 07/31/21 Pt is seen and evaluated with multiple family members at bedside Vital signs are and remain stable Reports 70% improvement in oral intake Labs reveal WBC 38, Hgb 9.0, nA 137, K 3.5, BUN/Cr of 9/1.3 Patient remains on remeron with improved oral intake ID on board for persistent abdominal abbcess and recommending to continue rocephin and flagyl while in patient with transition to oral ceftin and flagyl o nce read for discharge. Ileostomy continues to have high output patient has been placed on imodium to slow output Pt will be evaluated by dietary service for calorie count and nutritional recommendations. Objective - Vital Signs Vital signs: Vital Signs Temp 97.9 F 07/31/21 07:00 Pulse 87 07/31/21 08:00 Resp 20 07/31/21 08:00 BP 110/73 07/31/21 07:00 Pulse Ox 99 07/31/21 07:00 Intake & Output 07/30/21 07/31/21 07/31/21 18:59 06:59 18:59 Intake Total 1120 598 Output Total 2210 704 650 Balance -1090 -705 -52 Intake: Oral 1120 598 Output: Drainage 10 5 Abdomen 10 5 Urine 300 450 250 Stool 1900 250 400 Other: Voiding Method Urinal Urinal - Exam GENERAL: The patient is alert and oriented x3, not in any acute distress. Well developed, well nourished. HEENT: Pupils are round and equally reacting to light. EOMI. No scleral icterus. No conjunctival pallor. Normocephalic, atraumatic. No pharyngeal erythema. No thyromegaly. CARDIOVASCULAR: S1 and S2 present. No murmurs, rubs, or gallops. PULMONARY: Chest is clear to auscultation, no wheezing or crackles. ABDOMEN: Soft, nontender, nondistended, normoactive bowel sounds. No palpable organomegaly. MUSCULOSKELETAL: No joint swelling or deformity. EXTREMITIES: No cyanosis, clubbing, or pedal edema. NEUROLOGICAL: Gross neurological examination did not reveal any focal deficits. SKIN: No rashes. - Labs CBC & Chem 7: 07/31/21 11:03 07/31/21 11:03 Labs: Abnormal Lab Results - Last 24 Hours (Table) 07/30/21 07/30/21 Range/Units 07:35 07:35 WBC 3.76 L (4.50-10.00) X 10*3/uL RBC 2.89 L (4.40-5.60) X 10*6/uL Hgb 8.3 L (13.0-17.0) g/dL Hct 27.6 L (39.6-50.0) % MCHC 30.1 L (32.0-37.0) g/dL RDW 16.1 H (11.5-14.5) % Immature Gran # 0.05 H (0.00-0.04) X 10*3/uL Lymphocytes # 0.80 L (0.90-5.00) X 10*3/uL Potassium 3.2 L (3.5-5.5) mmol/L Carbon Dioxide 18.5 L (20.0-27.5) mmol/L Est GFR (CKD-EPI)NonAf 59.4 L (60.0-200.0) BUN/Creatinine Ratio 9.17 L (12.00-20.00) Ratio Calcium 8.0 L (8.7-10.3) mg/dL Lipase 135 H (14-60) U/L Assessment and Plan Assessment: 1. Acute renal injury/dehydration - Patient has been placed on IV fluid hydration with normal saline at a rate of 75 mL an hour; we will monitor strict AAMIR's, daily weights, renal function and electrolytes; avoid nephrotoxins and hypotension 2. Lactic acidosis, likely related to Poor oral intake/adult failure to thrive versus intra-abdominal abscess; patient has a lactic acid level of 2.7 upon admission, improving to 1.0 with IV fluid resuscitation; patient had CT of the abdomen done which reveals right upper cord and fluid collection; ID has been consulted and recommendations are pending 3. Status post exploratory laparotomy with small bowel resection, right colectomy and ileostomy placement on 06/21/2021 for abdominal fascial dehiscence, perforated small bowel and intra-abdominal abscess 4. History of Crohn's disease; as above 5. Hyponatremia; IV fluid hydration as indicated above; we will monitor electrolytes closely and make recommendations as indicated 6. Elevated lipase/amylase; no complaining of epigastric discomfort; likely related to dehydration; we will monitor amylase and lipase DVT prophylaxis; SCDs CODE STATUS; full code
[2021-08-01] MEDS: SODIUM CHLORIDE 0.9% 1,000 ML IV SCH ×3 (05:54→21:55)
[2021-08-01] MEDS: FAMOTIDINE 20 MG TAB PO SCH ×2 (08:22→20:46)
[2021-08-01] MEDS: metroNIDAZOLE 500 MG TAB PO SCH ×3 (08:22→22:37)
[2021-08-01] MEDS: LOPERAMIDE 2 MG CAP PO SCH ×4 (08:22→20:46)
[2021-08-01] MEDS: HEPARIN SODIUM,PORCINE/PF 5,000 UNIT/0.5 ML SYRINGE SQ SCH ×2 (08:23→20:45)
[2021-08-01 11:20] VITALS: BMI 33.7
--- NOTE | 2021-08-01 13:28 | P.PN ---
Subjective Progress Note Date: 08/01/21 CHIEF COMPLAINT: Dehydration HISTORY OF PRESENT ILLNESS: Patient lying in bed comfortably. Patient reports that is better. Denies abdominal pain. Still has poor oral intake. Patient reports that he is very sleepy after the new psychiatric meds. Denies any nausea vomiting. Was started on Imodium yesterday for high ileostomy output. There has been decrease in the output count 200 mL. ADRIAN drain was minimal purulent discharge. He is tolerating regular diet. No new labs PHYSICAL EXAM: VITAL SIGNS: Reviewed. GENERAL: Well-developed in no acute distress. HEENT: No sclera icterus. Extraocular movements grossly intact. Moist buccal mucosa. Head is atraumatic, normocephalic. ABDOMEN: Soft. Nondistended. Nontender. Incisional area clean dry and intact with dressing in place. ADRIAN drain with minimal purulent output. Ileostomy with decreased output noted and a few slightly formed pieces. NEUROLOGIC: Alert and oriented. Cranial nerves II through XII grossly intact. ASSESSMENT: 1. Dehydration 2. Exploratory laparotomy, small bowel resection, right colectomy and ileostomy placement on 06/21/2021 for abdominal fascial dehiscence, perforated small bowel and intra-abdominal abscess 3. History of Crohn's 4. Elevated lipase and amylase. No abdominal pain reported 5. Acute kidney injury 6. Hyponatremia PLAN: -Encouraged patient to increase oral intake -Continue IV fluids -Continue Imodium for high ileostomy output -Continue antibiotics per ID -Continue supportive care -Consult social work for possible ECF placement -GI prophylaxis Pepcid and DVT prophylaxis subcu heparin Physician Bus System Operator note has been reviewed by physician. Signing provider agrees with the documented findings, assessment, and plan of care. Objective - Vital Signs Vital signs: Vital Signs Temp 97.8 F 08/01/21 07:00 Pulse 67 08/01/21 07:00 Resp 16 08/01/21 07:00 BP 120/71 08/01/21 07:00 Pulse Ox 97 08/01/21 07:00 Intake & Output 07/31/21 08/01/21 08/01/21 18:59 06:59 18:59 Intake Total 1314 Output Total 1255 900 350 Balance 59 -900 -350 Weight 103.873 kg Intake: Oral 1314 Output: Drainage 5 0 Abdomen 5 0 Urine 500 700 350 Stool 400 200 Urine/Stool Mix 350 Other: Voiding Method Urinal Urinal # Voids 3 - Labs CBC & Chem 7: 07/31/21 11:03 07/31/21 11:03
--- NOTE | 2021-08-01 14:04 | P.PN ---
Progress Note - Text Progress Note Date: 08/01/21 Interval History: Patient was seen today for psychiatric follow-up regarding patient's depression and anxiety. Patient was sitting with his aunt and uncle in his room talking and watching TV. Patient was agreeable to speak to health science writer alone in his room. He states that overall he is improving in terms of his mood and anxiety. He states that he is getting "better news" about his medical condition and states that he is "feeling good" with regard to his surgical site. He states that he did have some loose stools in his ostomy bag over the weekend. He claims that he is feeling more optimistic about the future and going home soon. He claims that he has been on 3 different antibiotics for his infection. He states that he is sleeping much better with the melatonin and Remeron and wants to keep it at the same dose. He claims that he has not tried the BuSpar yet because he has not felt anxious and off. He has several questions about his medications and what he will be discharged on. He appears to be more future oriented and was appropriate. At this time patient denies any suicidal or homical ideations, intent or plan. Patient denies any auditory, visual hallucinations and denies any paranoia or delusions. Patient denies any side effects from the medications and has been compliant with meds. Mental Status Exam: General Appearance: Patient appears to be overweight, long kimble, stated age is alert, pleasant, and cooperative. Patient appears to have fair hygiene and grooming wearing hospital gown with fair eye contact. Behavior: Patient is calmly lying in bed without any agitated behavior. Less anxious today. Speech: Patient's speech is fluent and nonpressured. Mood/Affect: Patient reports their mood is "better", affect is congruent Suicidality/Homicidality: Patient denies having any suicidal or homicidal ideation intent or plan. Perceptions: Patient denies any visual hallucinations and denies any auditory hallucinations Though content/process: There is no evidence of any delusional thought content and thought process is linear and goal-directed. Memory and concentration: AOX3, grossly intact for the purposes of this session Judgment and insight: Fair IMPRESSIONS: Major depressive disorder, mild Generalized anxiety disorder PLAN: -At this time patient DOES NOT meet criteria for inpatient psychiatric admission. -Would recommend the following medication changes/additions: Continue with melatonin 5 mg daily at bedtime for sleep, Remeron 15 mg daily at bedtime for mood/anxiety/appetite/insomnia. Continue with BuSpar 10 mg 3 times a day when necessary for anxiety. Consider adding on nabilone as a appetite stimulant, will defer to primary team. -apron worker to provide patient with outpatient mental health/psychiatry resources for appropriate follow up upon discharge. Patient is interested in getting involved in outpatient therapy. -Ms Access Database Developer spoke with patient about substance abuse and the harmful effects on medical and mental health, patient verbally understood and agreed. -At this time psychiatry will sign off. - Any urgent concerns or questions, please contact the mental health unit.
[2021-08-01] MEDS: ONDANSETRON 4 MG/2 ML VIAL IVP PRN (16:01)
[2021-08-01] MEDS ORDERED: METOCLOPRAMIDE 5 MG/ML 2 ML VIAL IVP STA (19:49)
[2021-08-01] MEDS: MELATONIN 5 MG TABLET PO SCH (22:37)
[2021-08-01] MEDS: MIRTAZAPINE 15 MG TAB PO SCH (22:37)
--- NOTE | 2021-08-02 01:57 | P.PN ---
Subjective From the records 41-year-old male patient with recent history of ileostomy and right upper quadrant abscess was admitted to the hospital for markedly vertiginous total intake and I output ileostomy with acute renal injury and dehydration -- patient with history of abdominal abscess with recent prolonged hospital stay with drainage of the abscess with abdominal culture positive for E. coli and anaerobes; patient received prolonged IV course followed by oral Ceftin and Flagyl - repeat CT abdominal pelvis reveals right upper quadrant fluid collection with a ADRIAN drain inside the fluid and it has significantly decreased in size. --patient is placed on Rocephin and Flagyl with the plan to finish therapy with oral Ceftin and Flagyl, per ID recommendations. -- Patient has been evaluated by psych is placed on Remeron 15 mg by mouth daily at bedtime along with BuSpar 10 mg by mouth 3 times a day when necessary for anxiety --- Consult dietary for calorie count and further recommendations 07/31/21 Pt is seen and evaluated with multiple family members at bedside Vital signs are and remain stable Reports 70% improvement in oral intake Labs reveal WBC 38, Hgb 9.0, nA 137, K 3.5, BUN/Cr of 9/1.3 Patient remains on remeron with improved oral intake ID on board for persistent abdominal abbcess and recommending to continue rocephin and flagyl while in patient with transition to oral ceftin and flagyl once read for discharge. Ileostomy continues to have high output patient has been placed on imodium to slow output Pt will be evaluated by dietary service for calorie count and nutritional recommendations. Subjective: Resuming with the care of the patient today 08/01/2021 Patient presents with dehydration and dizziness with some nausea and vomiting and poor oral intake, he was found also to have high output from his right lower abdomen ileostomy. Today he's awake and alert and he states that his nausea has subsided and he whit l try to eat lunch although he is not a breakfast management. Abdominal pain is minimal or absent. No more dizziness He is eating upon down. Discontinue normal saline 75 mL/h ID team on case and recommended ceftriaxone and by mouth Flagyl Surgery team added Imodium to lower output trait of the ileostomy Psychiatry team on the case recommended from there on, BuSpar and melatonin. Psychiatry service signed off Objective - Vital Signs Vital signs: Vital Signs Temp 97.8 F 08/01/21 15:00 Pulse 90 08/01/21 15:00 Resp 18 08/01/21 15:00 BP 102/70 08/01/21 15:00 Pulse Ox 98 08/01/21 15:00 Intake & Output 07/31/21 08/01/21 08/01/21 18:59 06:59 18:59 Intake Total 1314 120 Output Total 1255 900 550 Balance 59 -900 -430 Weight 103.873 kg Intake: Oral 1314 120 Output: Drainage 5 0 Abdomen 5 0 Urine 500 700 350 Stool 400 200 200 Urine/Stool Mix 350 Other: Voiding Method Urinal Urinal Urinal # Voids 3 - Exam -GENERAL: The patient is alert and oriented x3, not in any acute distress. Obese HEENT: Pupils are round and equally reacting to light. EOMI. No scleral icterus. No conjunctival pallor. Normocephalic, atraumatic. No pharyngeal erythema. No thyromegaly. CARDIOVASCULAR: S1 and S2 present. No murmurs, rubs, or gallops. PULMONARY: Chest is clear to auscultation, no wheezing or crackles. - ABDOMEN: Soft, nontender, nondistended, normoactive bowel sounds. No palpable organomegaly. Right ileostomy back with brown liquid stool MUSCULOSKELETAL: No joint swelling or deformity. EXTREMITIES: No cyanosis, clubbing, or pedal edema. NEUROLOGICAL: Gross neurological examination did not reveal any focal deficits. SKIN: No rashes. no petechiae. - Labs CBC & Chem 7: 07/31/21 11:03 07/31/21 11:03 Assessment and Plan Assessment: The Wally S with nausea vomiting, resolved Dehydration, improving High output ileostomy back, started on Imodium History of Crohn disease status post right colectomy and ileostomy with postop intra-abdominal infection, currently kept on ceftriaxone and Flagyl Chronic kidney disease stage III Possible liver cirrhosis Plan: This is a pleasant 41 male who presents with high output ileostomy and dehydration with poor oral intake Diet is advanced slowly as tolerated, he has picking up appetite. Surgery primary team of the case Infectious edema on the case and directed, to continue with ceftriaxone and Flagyl Continue with gentle hydration Psychiatry service signed off Labs and medication were reviewed.. Continue same treatment. Continue with symptomatic treatment. Resume home medication. Monitor lytes and vitals. DVT and GI prophylaxis. Further recommendations as per clinical course of the patient DVT prophylaxis: Subcutaneous heparin GI Prophylaxis: Pepcid Prognosis is guarded
[2021-08-02] MEDS: FAMOTIDINE 20 MG TAB PO SCH ×2 (10:12→20:41)
[2021-08-02] MEDS: LOPERAMIDE 2 MG CAP PO SCH ×4 (10:13→20:40)
[2021-08-02] MEDS: HEPARIN SODIUM,PORCINE/PF 5,000 UNIT/0.5 ML SYRINGE SQ SCH ×2 (10:13→20:39)
[2021-08-02] MEDS: metroNIDAZOLE 500 MG TAB PO SCH (10:18)
[2021-08-02] MEDS: SODIUM CHLORIDE 0.9% 1,000 ML IV SCH ×2 (10:18→20:42)
--- NOTE | 2021-08-02 13:06 | P.PN ---
Subjective Progress Note Date: 08/02/21 CHIEF COMPLAINT: Dehydration HISTORY OF PRESENT ILLNESS: Patient worked with physical therapy this morning. He is currently sitting at bedside chair. Denies any pain. He is complaining of metal taste in his mouth contributing to his poor oral intake. He feels that it was likely due to the antibiotics. Dr. Tan did discuss antibiotics with Dr. Anna. And at the time Dr. Anna did okay discontinuing the Rocephin and Flagyl and starting patient on Augmentin. Patient did have 700 mL output thro ugh her ileostomy during the night and 300 mL. ADRIAN drain with 20 mL of purulent output. Afebrile. Patient requesting to go home with home care. He does not want to go to an ECF. Patient is undergoing a calorie count. Patient seen and examined with Dr. steen PHYSICAL EXAM: VITAL SIGNS: Reviewed. GENERAL: Well-developed in no acute distress. HEENT: No sclera icterus. Extraocular movements grossly intact. Moist buccal mucosa. Head is atraumatic, normocephalic. ABDOMEN: Soft. Nondistended. Nontender. Incisional area clean dry and intact with dressing in place. ADRIAN drain with minimal purulent output. Ileostomy with decreased output noted and a few slightly formed pieces. NEUROLOGIC: Alert and oriented. Cranial nerves II through XII grossly intact. ASSESSMENT: 1. Dehydration 2. Exploratory laparotomy, small bowel resection, right colectomy and ileostomy placement on 06/21/2021 for abdominal fascial dehiscence, perforated small bowel and intra-abdominal abscess 3. History of Crohn's 4. Elevated lipase and amylase. No abdominal pain reported 5. Acute kidney injury 6. Hyponatremia PLAN: -Discontinue the Flagyl and Rocephin. Start patient on Augmentin twice a day. Case discussed with Dr. Anna -Patient educated again on the importance of good oral intake and ambulating -Continue IV fluids -Continue Imodium for high ileostomy output -Continue antibiotics per ID -Continue supportive care -Possible discharge home tomorrow if patient's oral intake has improved -GI prophylaxis Pepcid and DVT prophylaxis subcu heparin Physician Artificial Flower Maker note has been reviewed by physician. Signing provider agrees with the documented findings, assessment, and plan of care. Objective - Vital Signs Vital signs: Vital Signs Temp 98 F 08/02/21 07:25 Pulse 66 08/02/21 07:25 Resp 16 08/02/21 07:25 BP 110/73 08/02/21 07:25 Pulse Ox 98 08/02/21 07:25 Intake & Output 08/01/21 08/02/21 08/02/21 18:59 06:59 18:59 Intake Total 240 Output Total 1470 550 300 Balance -1230 -550 -300 Weight 103.873 kg Intake: Oral 240 Output: Drainage 20 Abdomen 20 Urine 850 250 Stool 600 300 300 Other: Voiding Method Urinal Urinal # Voids 1,000 - Labs CBC & Chem 7: 07/31/21 11:03 07/31/21 11:03
[2021-08-02] MEDS ORDERED: LORazepam 1 MG TAB PO PRN (14:38)
[2021-08-02] MEDS: busPIRone HCl 10 MG TAB PO PRN (15:05)
--- NOTE | 2021-08-02 15:37 | P.PN ---
Subjective From the records 41-year-old male patient with recent history of ileostomy and right upper quadrant abscess was admitted to the hospital for markedly vertiginous total intake and I output ileostomy with acute renal injury and dehydration -- patient with history of abdominal abscess with recent prolonged hospital stay with drainage of the abscess with abdominal culture positive for E. coli and anaerobes; patient received prolonged IV course followed by oral Ceftin and Flagyl - repeat CT abdominal pelvis reveals right upper quadrant fluid collection with a ADRIAN drain inside the fluid and it has significantly decreased in size. --patient is placed on Rocephin and Flagyl with the plan to finish therapy with oral Ceftin and Flagyl, per ID recommendations. -- Patient has been evaluated by psych is placed on Remeron 15 mg by mouth daily at bedtime along with BuSpar 10 mg by mouth 3 times a day when necessary for anxiety --- Consult dietary for calorie count and further recommendations 07/31/21 Pt is seen and evaluated with multiple family members at bedside Vital signs are and remain stable Reports 70% improvement in oral intake Labs reveal WBC 38, Hgb 9.0, nA 137, K 3.5, BUN/Cr of 9/1.3 Patient remains on remeron with improved oral intake ID on board for persistent abdominal abbcess and recommending to continue rocephin and flagyl while in patient with transition to oral ceftin and flagyl once read for discharge. Ileostomy continues to have high output patient has been placed on imodium to slow output Pt will be evaluated by dietary service for calorie count and nutritional recommendations. Subjective: Resuming with the care of the patient today 08/01/2021 Patient presents with dehydration and dizziness with some nausea and vomiting and poor oral intake, he was found also to have high output from his right lower abdomen ileostomy. Today he's awake and alert and he states that his nausea has subsided and he whit l try to eat lunch although he is not a breakfast management. Abdominal pain is minimal or absent. No more dizziness He is eating upon down. Discontinue normal saline 75 mL/h ID team on case and recommended ceftriaxone and by mouth Flagyl Surgery team added Imodium to lower output trait of the ileostomy Psychiatry team on the case recommended from there on, BuSpar and melatonin. Psychiatry service signed off Objective - Vital Signs Vital signs: Vital Signs Temp 98 F 08/02/21 07:25 Pulse 66 08/02/21 07:25 Resp 16 08/02/21 07:25 BP 110/73 08/02/21 07:25 Pulse Ox 98 08/02/21 07:25 Intake & Output 08/01/21 08/02/21 08/02/21 18:59 06:59 18:59 Intake Total 240 Output Total 1470 550 Balance -1230 -550 Weight 103.873 kg Intake: Oral 240 Output: Drainage 20 Abdomen 20 Urine 850 250 Stool 600 300 Other: Voiding Method Urinal Urinal # Voids 1,000 - Exam -GENERAL: The patient is alert and oriented x3, not in any acute distress. Obese HEENT: Pupils are round and equally reacting to light. EOMI. No scleral icterus. No conjunctival pallor. Normocephalic, atraumatic. No pharyngeal erythema. No thyromegaly. CARDIOVASCULAR: S1 and S2 present. No murmurs, rubs, or gallops. PULMONARY: Chest is clear to auscultation, no wheezing or crackles. - ABDOMEN: Soft, nontender, nondistended, normoactive bowel sounds. No palpable organomegaly. Right ileostomy back with brown liquid stool MUSCULOSKELETAL: No joint swelling or deformity. EXTREMITIES: No cyanosis, clubbing, or pedal edema. NEUROLOGICAL: Gross neurological examination did not reveal any focal deficits. SKIN: No rashes. no petechiae. - Labs CBC & Chem 7: 07/31/21 11:03 07/31/21 11:03 Assessment and Plan Assessment: The Wally S with nausea vomiting, resolved Dehydration, improving High output ileostomy back, started on Imodium History of Crohn disease status post right colectomy and ileostomy with postop intra-abdominal infection, currently kept on ceftriaxone and Flagyl Chronic kidney disease stage III Possible liver cirrhosis Plan: This is a pleasant 41 male who presents with high output ileostomy and dehydration with poor oral intake Diet is advanced slowly as tolerated, Continue with Zofran, Ativan when necessary and it Surgery primary team on the case Infectious edema on the case and directed, to continue with ceftriaxone and Flagyl. Converted to Augmentin today Continue with gentle hydration Psychiatry service signed off Labs and medication were reviewed.. Continue same treatment. Continue with symptomatic treatment. Resume home medication. Monitor lytes and vitals. DVT and GI prophylaxis. Further recommendations as per clinical course of the patient DVT prophylaxis: Subcutaneous heparin GI Prophylaxis: Pepcid Prognosis is guarded
[2021-08-02] MEDS: MELATONIN 5 MG TABLET PO SCH (20:41)
[2021-08-02] MEDS: AMOXIC-POT CLAV 875-125MG 1 EACH TAB PO SCH (20:41)
[2021-08-02] MEDS: MIRTAZAPINE 15 MG TAB PO SCH (20:45)
[2021-08-02] MEDS: ONDANSETRON 4 MG/2 ML VIAL IVP PRN (21:31)
--- NOTE | 2021-08-02 22:38 | P.PN ---
Subjective Progress Note Date: 08/01/21 Principal diagnosis: Intra-abdominal abscess Patient is a 41 year male with a past medical history significant for intra-abdominal abscess in this patient is status post colectomy and diverting ileostomy and the previous culture were positive for E. coli and anaerobes p deidre has been admitted to the hospital for dehydration. On today's evaluation that is 08/01/2021, the patient continues to be afebrile, the patient denies having any nausea no vomiting and no abdominal pain however the oral intakes remains to be poor, the patient denies chest pain shortness of breath or cough Objective - Vital Signs Vital signs: Vital Signs Temp 97.8 F 08/01/21 07:00 Pulse 67 08/01/21 07:00 Resp 16 08/01/21 07:00 BP 120/71 08/01/21 07:00 Pulse Ox 97 08/01/21 07:00 Intake & Output 07/31/21 08/01/21 08/01/21 18:59 06:59 18:59 Intake Total 1314 120 Output Total 1255 900 350 Balance 59 -900 -230 Weight 103.873 kg Intake: Oral 1314 120 Output: Drainage 5 0 Abdomen 5 0 Urine 500 700 350 Stool 400 200 Urine/Stool Mix 350 Other: Voiding Method Urinal Urinal # Voids 3 - Exam GENERAL DESCRIPTION: Middle-aged male lying in bed in no distress RESPIRATORY SYSTEM: Unlabored breathing , decreased breath sounds at bases HEART: S1 S2 regular rate and rhythm , ABDOMEN: Soft , no tenderness, midline abdominal wound is open no significant slough tissue EXTREMITIES: No edema feet - Labs CBC & Chem 7: 07/31/21 11:03 07/31/21 11:03 Assessment and Plan (1) Intra-abdominal abscess Current Visit: Yes Status: Acute Code(s): K65.1 - PERITONEAL ABSCESS SNOMED Code(s): 17613549 Plan: 1patient with history of abdominal abscess with recent prolonged hospital stay drainage of the abscess with abdominal culture positive for E. coli and anaerobes for the patient has received prolonged IV course and subsequently has been on oral Ceftin and Flagyl now being admitted to hospital with dehydration from high output ileostomy and decreased oral intake. 2patient did have repeat CT abdominal pelvis with issues right upper quadrant fluid collection with a ADRIAN drain inside the fluid and it has significantly decreased in size as the CT was reviewed with radiologist. 3 patient to continue with Rocephin and Flagyl while inpatient, and will finish therapy with oral Ceftin and Flagyl. Time with Patient: Less than 30
--- NOTE | 2021-08-02 22:40 | P.PN ---
Subjective Progress Note Date: 08/02/21 Principal diagnosis: Intra-abdominal abscess Patient is a 41 year male with a past medical history significant for intra-abdominal abscess in this patient is status post colectomy and diverting ileostomy and the previous culture were positive for E. coli and anaerobes p deidre has been admitted to the hospital for dehydration. On today's evaluation that is 08/02/2021, the patient denies any fever or any chills, the patient has been complaining of metallic taste in the mouth from Flagyl affecting his appetite and is refusing antibiotics, patient denies having any chest pain shortness of breath or cough and no abdominal pain Objective - Vital Signs Vital signs: Vital Signs Temp 98.3 F 08/02/21 14:00 Pulse 65 08/02/21 14:00 Resp 16 08/02/21 14:00 BP 109/75 08/02/21 14:00 Pulse Ox 98 08/02/21 14:00 Intake & Output 08/01/21 08/02/21 08/02/21 18:59 06:59 18:59 Intake Total 240 Output Total 1470 550 300 Balance -1230 -550 -300 Weight 103.873 kg 103.873 kg Intake: Oral 240 Output: Drainage 20 Abdomen 20 Urine 850 250 Stool 600 300 300 Other: Voiding Method Urinal Urinal # Voids 1,000 - Exam GENERAL DESCRIPTION: Middle-aged male lying in bed in no distress RESPIRATORY SYSTEM: Unlabored breathing , decreased breath sounds at bases HEART: S1 S2 regular rate and rhythm , ABDOMEN: Soft , no tenderness, midline abdominal wound is open no significant slough tissue EXTREMITIES: No edema feet - Labs CBC & Chem 7: 07/31/21 11:03 07/31/21 11:03 Assessment and Plan (1) Intra-abdominal abscess Current Visit: Yes Status: Acute Code(s): K65.1 - PERITONEAL ABSCESS SNOMED Code(s): 17833854 Plan: 1patient with history of abdominal abscess with recent prolonged hospital stay drainage of the abscess with abdominal culture positive for E. coli and anaerobes for the patient has received prolonged IV course and subsequently has been on oral Ceftin and Flagyl now being admitted to hospital with dehydration from high output ileostomy and decreased oral intake. 2patient did have repeat CT abdominal pelvis with issues right upper quadrant fluid collection with a ADRIAN drain inside the fluid and it has significantly decreased in size 3as the patient did have evidence of abdominal abscesses discontinuation of antibiotic can need to worsening of the abscess, we can try to switch him over to oral Augmentin to see if that will decrease his nausea and metallic taste in the mouth and this was discussed with the patient as well as with the surgeon Time with Patient: Less than 30
[2021-08-03 11:11] LABS: African American GFR (CKD) 81 (>60 ml/min/1.73 sqM); Anion Gap 8 mmol/L; Blood Urea Nitrogen 6 mg/dL (9-20); Calcium 7.5 mg/dL (8.4-10.2); Carbon Dioxide 21 mmol/L (22-30); Chloride 110 mmol/L (98-107); Glucose 98 mg/dL (74-99); Non-African American GFR(CKD) 70 (>60 ml/min/1.73 sqM); Potassium 3.2 mmol/L (3.5-5.1); Sodium 139 mmol/L (137-145)
[2021-08-03] MEDS: AMOXIC-POT CLAV 875-125MG 1 EACH TAB PO SCH ×2 (11:13→21:36)
[2021-08-03] MEDS: LOPERAMIDE 2 MG CAP PO SCH ×4 (11:14→21:36)
[2021-08-03] MEDS: HEPARIN SODIUM,PORCINE/PF 5,000 UNIT/0.5 ML SYRINGE SQ SCH ×2 (11:14→21:36)
[2021-08-03] MEDS: FAMOTIDINE 20 MG TAB PO SCH ×2 (11:14→21:36)
[2021-08-03] MEDS: SODIUM CHLORIDE 0.9% 1,000 ML IV SCH (11:17)
[2021-08-03] MEDS: POTASSIUM CHLORIDE ER 20 MEQ TAB.ER PO SCH ×2 (11:50→12:45)
--- NOTE | 2021-08-03 15:12 | P.DS ---
Providers Date of admission: 08/01/21 09:59 Expected date of discharge: 08/03/21 Attending physician: Marco A Steen Consults: 07/29/21 09:47 Consult Physician Routine Consulting Provider: Gomez Whitney Consult Reason/Comments: medical management Do you want consulting provider notified?: Yes 07/29/21 09:49 Consult Physician Routine Consulting Provider: Gabriel Anna Consult Reason/Comments: Intra-abdominal abscess Do you want consulting provider notified?: Yes 07/29/21 13:34 Consult Physician Routine Consulting Provider: Rajesh Goodwin Consult Reason/Comments: depression, anxiety Do you want consulting provider notified?: Yes Primary care physician: Erin Luna MD Hospital Course: Discharge diagnosis 1. Dehydration 2. Exploratory laparotomy, small bowel resection, right colectomy and ileostomy placement on 06/21/2021 for abdominal fascial dehiscence, perforated small bowel and intra-abdominal abscess 3. History of Crohn's 4. Elevated lipase and amylase. No abdominal pain reported 5. Acute kidney injury 6. Hyponatremia 7. Hypokalemia replaced 8. Poor oral intake 9. Anxiety and depression Hospital course This is a 41-year-old male with history of exploratory laparotomy, small bowel resection, right colectomy and ileostomy placement on 06/21/2021 for abdominal fascial dehiscence, perforated small bowel and intra-abdominal abscess. Dhruv jiang is on oral antibiotics. He has history of Crohn's and required ileocolectomy in May with peritoneal washout for abscess. He reports his pain is controlled. He went to see Dr. steen for follow-up visit. He is been very dehydrated with poor oral intake. He complains of nausea. He denies any fever chills or sweats. He has his ADRIAN drain in place. His ileostomy is functioning. Patient brought into the hospital for IV fluids due to severe dehydration. Patient to receive IV fluids. Patient continues to have poor oral intake. Does note that the intake is slightly better after being switched over to oral antibiotics. Infectious disease recommending 10 more days of Augmentin. Patient is being set up at the [facility] for IV fluid hydration 3 times a week. Patient is feeling better since admission. Denies any pain. His ostomy output is slowing down. He has been rehydrated. He is stable for discharge. Please refer to chart for any further details. Physician [employer] note has been reviewed by physician. Signing provider agrees with the documented findings, assessment, and plan of care. Patient Condition at Discharge: Stable Plan - Discharge Summary New Discharge Prescriptions: New Amoxicillin/Potassium Clav [Augmentin 875-125 Tablet] 1 tab PO Q12HR 10 Days #20 tab No Action Cefuroxime Axetil [Ceftin] 500 mg PO BID 14 Days #28 tab metroNIDAZOLE [Flagyl] 500 mg PO TID 14 Days #56 tab Cholecalciferol [Vitamin D3 (25 Mcg = 1000 Iu)] 50 mcg PO DAILY Ascorbic Acid [Vitamin C] 500 mg PO DAILY Albuterol Sulfate [Albuterol Sulfate Hfa] 2 puff PO RT-Q6H PRN PRN Reason: Shortness Of Breath traMADol HCL [Ultram] 50 mg PO Q8HR PRN 3 Days #9 tab PRN Reason: Pain Sodium Bicarbonate Tab 650 mg PO QID #120 tab Ondansetron [Zofran] 4 mg PO Q4H PRN PRN Reason: Nausea Melatonin 5 mg PO HS PRN PRN Reason: Insomnia Discharge Medication List Albuterol Sulfate [Albuterol Sulfate Hfa] 2 puff PO RT-Q6H PRN 06/19/21 [History] Ascorbic Acid [Vitamin C] 500 mg PO DAILY 06/19/21 [History] Cholecalciferol [Vitamin D3 (25 Mcg = 1000 Iu)] 50 mcg PO DAILY 06/19/21 [History] Cefuroxime Axetil [Ceftin] 500 mg PO BID 14 Days #28 tab 07/18/21 [Rx] Sodium Bicarbonate Tab 650 mg PO QID #120 tab 07/18/21 [Rx] metroNIDAZOLE [Flagyl] 500 mg PO TID 14 Days #56 tab 07/18/21 [Rx] traMADol HCL [Ultram] 50 mg PO Q8HR PRN 3 Days #9 tab 07/18/21 [Rx] Melatonin 5 mg PO HS PRN 07/28/21 [History] Ondansetron [Zofran] 4 mg PO Q4H PRN 07/28/21 [History] Amoxicillin/Potassium Clav [Augmentin 875-125 Tablet] 1 tab PO Q12HR 10 Days #20 tab 08/03/21 [Rx] Follow up Appointment(s)/Referral(s): Erin Luna MD [Primary Care Provider] - 1-2 days Nursing,Jonathan [NON-STAFF] - 1-2 Days & Infusion,Kevin Procedures [REFERRING] - 08/05/21 8:30 am (You have been ordered to recieve IV hydration three times a week. This is your first appointment. ) Marco A Steen MD [STAFF PHYSICIAN] - 1 Week Activity/Diet/Wound Care/Special Instructions: Medicine service to complete discharge med rec Keep a log of ADRIAN drain output and bring with you to your follow-up appointment Milk/strip drains 2-3 times a day Stay Hydrated Program for Post Op Ileostomy Care Patients at [facility]: One liter bottle of water with 2 packages of DripDrop Oral Rehydration Solution to the 1 liter of water for the next 36 days Drink entire contents daily Supplies of DripDrop sent home with Mr Salcedo for 36 days & Instruction Sheet This is ordered by your surgeon Dr Steen - Any additional questions please follow up with the surgeon Discharge/Stand Alone Forms: Who Do I Call?, Community Resources Discharge Disposition: HOME WITH HOME HEALTH SERVICES
[2021-08-03] MEDS: ONDANSETRON 4 MG/2 ML VIAL IVP PRN (16:41)
[2021-08-03] MEDS: busPIRone HCl 10 MG TAB PO PRN (19:32)
[2021-08-03] MEDS: MIRTAZAPINE 15 MG TAB PO SCH (21:36)
[2021-08-03] MEDS: MELATONIN 5 MG TABLET PO SCH (21:36)
--- NOTE | 2021-08-03 22:33 | P.PN ---
Subjective From the records 41-year-old male patient with recent history of ileostomy and right upper quadrant abscess was admitted to the hospital for markedly vertiginous total intake and I output ileostomy with acute renal injury and dehydration -- patient with history of abdominal abscess with recent prolonged hospital stay with drainage of the abscess with abdominal culture positive for E. coli and anaerobes; patient received prolonged IV course followed by oral Ceftin and Flagyl - repeat CT abdominal pelvis reveals right upper quadrant fluid collection with a ADRIAN drain inside the fluid and it has significantly decreased in size. --patient is placed on Rocephin and Flagyl with the plan to finish therapy with oral Ceftin and Flagyl, per ID recommendations. -- Patient has been evaluated by psych is placed on Remeron 15 mg by mouth daily at bedtime along with BuSpar 10 mg by mouth 3 times a day when necessary for anxiety --- Consult dietary for calorie count and further recommendations 07/31/21 Pt is seen and evaluated with multiple family members at bedside Vital signs are and remain stable Reports 70% improvement in oral intake Labs reveal WBC 38, Hgb 9.0, nA 137, K 3.5, BUN/Cr of 9/1.3 Patient remains on remeron with improved oral intake ID on board for persistent abdominal abbcess and recommending to continue rocephin and flagyl while in patient with transition to oral ceftin and flagyl once read for discharge. Ileostomy continues to have high output patient has been placed on imodium to slow output Pt will be evaluated by dietary service for calorie count and nutritional recommendations. Subjective: Resuming with the care of the patient today 08/01/2021 Patient presents with dehydration and dizziness with some nausea and vomiting and poor oral intake, he was found also to have high output from his right lower abdomen ileostomy. Today he's awake and alert and he states that his nausea has subsided and he whti l try to eat lunch although he is not a breakfast management. Abdominal pain is minimal or absent. No more dizziness He is eating upon down. Discontinue normal saline 75 mL/h ID team on case and recommended ceftriaxone and by mouth Flagyl Surgery team added Imodium to lower output trait of the ileostomy Psychiatry team on the case recommended from there on, BuSpar and melatonin. Psychiatry service signed off 08/02/2021 Patient was still complaining of from nausea, he still cannot eat well. He feels little anxious, no abdominal pain and his ileostomy is working. Psychiatric evaluated the patient and start him on Remeron Because of persistent nausea and anxiety and decrease appetite restart him on Ativan 1 mg twice a day as needed and he'll keep monitoring Antibiotics as per primary surgery team, and infectious disease team, currently he is on Augmentin. Also he is on gentle hydration normal saline at 75 mL/h 08/03/2021 Patient today feels better, he has been removed, less anxiety, better appetite and less nausea. Patient states that he uses Ativan last night and it helped him, he could eat more on dinner. That he is hemodynamically stable. He is on Augmentin and normal saline. It looks like patient improving steadily and gradually. We will keep following up Objective - Vital Signs Vital signs: Vital Signs Temp 98 F 08/03/21 07:35 Pulse 76 08/03/21 07:35 Resp 18 08/03/21 07:35 BP 115/79 08/03/21 07:35 Pulse Ox 97 08/03/21 07:35 Intake & Output 08/02/21 08/03/21 08/03/21 18:59 06:59 18:59 Intake Total 0 Output Total 310 655 300 Balance -310 -655 -300 Weight 103.873 kg Intake: Oral 0 Output: Drainage 10 5 Abdomen 10 5 Urine 250 300 Stool 300 400 Other: Voiding Method Urinal # Voids 1 - Exam -GENERAL: The patient is alert and oriented x3, not in any acute distress. Obese HEENT: Pupils are round and equally reacting to light. EOMI. No scleral icterus. No conjunctival pallor. Normocephalic, atraumatic. No pharyngeal erythema. No thyromegaly. CARDIOVASCULAR: S1 and S2 present. No murmurs, rubs, or gallops. PULMONARY: Chest is clear to auscultation, no wheezing or crackles. - ABDOMEN: Soft, nontender, nondistended, normoactive bowel sounds. No palpable organomegaly. Right ileostomy back with brown liquid stool MUSCULOSKELETAL: No joint swelling or deformity. EXTREMITIES: No cyanosis, clubbing, or pedal edema. NEUROLOGICAL: Gross neurological examination did not reveal any focal deficits. SKIN: No rashes. no petechiae. - Labs CBC & Chem 7: 07/31/21 11:03 08/03/21 15:52 Labs: Abnormal Lab Results - Last 24 Hours (Table) 08/03/21 Range/Units 10:20 Potassium 3.2 L (3.5-5.1) mmol/L Chloride 110 H (98-107) mmol/L Carbon Dioxide 21 L (22-30) mmol/L BUN 6 L (9-20) mg/dL Creatinine 1.27 H (0.66-1.25) mg/dL Calcium 7.5 L (8.4-10.2) mg/dL Assessment and Plan Assessment: The Wally S with nausea vomiting, resolved Dehydration, improving High output ileostomy back, started on Imodium History of Crohn disease status post right colectomy and ileostomy with postop intra-abdominal infection, currently kept on ceftriaxone and Flagyl Chronic kidney disease stage III Possible liver cirrhosis Plan: This is a pleasant 41 male who presents with high output ileostomy and dehydration with poor oral intake Diet is advanced slowly as tolerated, Continue with Zofran, Ativan when necessary and it Surgery primary team on the case Infectious edema on the case and directed, to continue with ceftriaxone and Flagyl. Converted to Augmentin today Continue with gentle hydration Psychiatry service signed off Labs and medication were reviewed.. Continue same treatment. Continue with symptomatic treatment. Resume home medication. Monitor lytes and vitals. DVT and GI prophylaxis. Further recommendations as per clinical course of the patient DVT prophylaxis: Subcutaneous heparin GI Prophylaxis: Pepcid Prognosis is guarded
[2021-08-04] MEDS: SODIUM CHLORIDE 0.9% 1,000 ML IV SCH (01:45)
[2021-08-04 07:58] VITALS: BP 108/71; PULSE 82; RESP 18; TEMP 97.5
[2021-08-04] MEDS: FAMOTIDINE 20 MG TAB PO SCH (09:23)
[2021-08-04] MEDS: HEPARIN SODIUM,PORCINE/PF 5,000 UNIT/0.5 ML SYRINGE SQ SCH (09:23)
[2021-08-04] MEDS: LOPERAMIDE 2 MG CAP PO SCH (09:23)
[2021-08-04] MEDS: AMOXIC-POT CLAV 875-125MG 1 EACH TAB PO SCH (09:23)
== END 2021-08-04 10:27 | disposition home health service (06) | DRG 640 ==
LOC: EC 14:40 → 6NMEDSUR 15:36 → OBSVTOIN 08-01 09:59
PROVIDERS: ADMIT Surgery; ATTEND Surgery
PROC: 05HB33Z Insertion of Infusion Device into Right Basilic Vein, Percutaneous Approach (ICD-10-PCS; principal; 2021-08-03 14:10)
DX: E86.0 Dehydration (principal); K65.1 Peritoneal abscess; N17.9 Acute kidney failure, unspecified; K50.90 Crohn's disease, unspecified, without complications; F32.0 Major depressive disorder, single episode, mild; E87.2 Acidosis; E87.1 Hypo-osmolality and hyponatremia; N18.30 Chronic kidney disease, stage 3 unspecified; Z43.2 Encounter for attention to ileostomy; R62.7 Adult failure to thrive; E87.6 Hypokalemia; F41.1 Generalized anxiety disorder; G47.00 Insomnia, unspecified; E66.3 Overweight; Z68.31 Body mass index [BMI] 31.0-31.9, adult; R74.8 Abnormal levels of other serum enzymes; Z79.2 Long term (current) use of antibiotics; Z79.899 Other long term (current) drug therapy; Z87.891 Personal history of nicotine dependence; Z90.49 Acquired absence of other specified parts of digestive tract; Z87.19 Personal history of other diseases of the digestive system; Z86.16 Personal history of COVID-19; Z71.3 Dietary counseling and surveillance; Z98.890 Other specified postprocedural states; Z88.6 Allergy status to analgesic agent; Z83.511 Family history of glaucoma
CPT/HCPCS: 36410; 74176; 76937; 80048; 80053; 82150; 83605; 83690; 84132; 85025; 93005; 96360; 99285

== ENCOUNTER 2021-08-04 20:08 | Inpatient (IN) | payer OTHER ==
[2021-08-04 20:13] LABS: Glucose,Whole Blood 102 mg/dL (75-99)
[2021-08-04] MEDS ORDERED: LORazepam 2 MG/ML INJ IV STA (20:41)
[2021-08-04] MEDS ORDERED: SODIUM CHLORIDE 0.9% 500 ML 500 ML IV STA (20:41)
--- NOTE | 2021-08-04 20:42 | ED ---
Seizure HPI - General Chief Complaint: Seizure Stated Complaint: Seizure Source: patient, EMS Mode of arrival: EMS Limitations: no limitations - History of Present Illness Initial Comments: 41-year-old male recently discharged from our facility earlier today presents to the hospital for new onset seizure. He has been hospitalized fairly consistently since the end of April when he had pneumoperitoneum secondary to a perforated bowel. Patient has had intra-abdominal infections with an ileostomy placement. He was discharged this morning after hospitalization for dehydration. states that he was at home sitting in his chair when his eyes rolled back in his head and he began having full tonic-clonic seizure that lasted for a couple of seconds. Patient denies history of seizures. Was started on new medications to include Remeron and BuSpar. He denies any head injury since being home and did not suffer any trauma during the seizure as he remained in his chair. No bowel or bladder incontinence. Patient did not bite his tongue. No fevers. No abdominal pain are pearly and drainage. No other alleviating, precipitating or modifying factors - Related Data Home Medications Medication Instructions Recorded Confirmed Albuterol Sulfate [Albuterol 2 puff PO RT-Q6H PRN 06/19/21 08/04/21 Sulfate Hfa] Ascorbic Acid [Vitamin C] 500 mg PO DAILY 06/19/21 08/04/21 Cholecalciferol [Vitamin D3 (25 50 mcg PO DAILY 06/19/21 08/04/21 Mcg = 1000 Iu)] Melatonin 5 mg PO HS PRN 07/28/21 08/04/21 Ondansetron [Zofran] 4 mg PO Q4H PRN 07/28/21 08/04/21 Previous Rx's Medication Instructions Recorded Sodium Bicarbonate Tab 650 mg PO QID #120 tab 07/18/21 Amoxicillin/Potassium Clav 1 tab PO Q12HR 10 Days #20 tab 08/03/21 [Augmentin 875-125 Tablet] Loperamide [Imodium] 2 mg PO QID #30 cap 08/03/21 Mirtazapine [Remeron] 15 mg PO HS #30 tab 08/03/21 busPIRone HCl [Buspar] 10 mg PO TID PRN #30 tab 08/03/21 Allergies Allergy/AdvReac Type Severity Reaction Status Date / Time acetaminophen [From Tylenol] Allergy Chest Pain Verified 08/04/21 20:49 Review of Systems ROS Statement: Those systems with pertinent positive or pertinent negative responses have been documented in the HPI. ROS Other: All systems not noted in ROS Statement are negative. Past Medical History Past Medical History: No Reported History Additional Past Medical History / Comment(s): Chron's disease, recently had surgery for chron's with peritoneal abscess, covid + 05/17/21. History of Any Multi-Drug Resistant Organisms: None Reported Past Surgical History: Bowel Resection, Hernia Repair Additional Past Surgical History / Comment(s): 05/28/21 ileocolectomy with washout pf pertioneal abscess, R inguinal hernia repair. Past Anesthesia/Blood Transfusion Reactions: No Reported Reaction Past Psychological History: No Psychological Hx Reported Smoking Status: Former smoker Past Alcohol Use History: Occasional Past Drug Use History: None Reported - Past Family History Father Family Medical History: No Reported History Additional Family Medical History / Comment(s): Father is healthy Mother Family Medical History: Eye Disorder Additional Family Medical History / Comment(s): Mother has glaucoma General Exam Limitations: no limitations Course Vital Signs 08/04/21 08/04/21 08/04/21 20:10 21:15 23:15 Temperature 98.1 F Pulse Rate 95 74 68 Respiratory 18 18 18 Rate Blood Pressure 129/88 126/86 112/84 O2 Sat by Pulse 99 99 98 Oximetry Medical Decision Making - Medical Decision Making Upon arrival patient was placed into trauma 2. He had not been given any medications by EMS. No further seizure-like activity. Patient is completely awake and alert and able to answer questions. Given 1 mg of Ativan to prevent any further seizure-like activity. Laboratory studies are conducted and reviewed and appeared to be within normal limits. CT the patient's brain was performed which demonstrates no acute cranial process. The patient does have a recent complicated medical history with the medication ministrations I did r ecommend admission for neurology consultation and we'll hold the patient's antidepressant at this time for which she did agree to. Spoke with She from [facility] to agree to admit the patient - Lab Data Result diagrams: 08/04/21 21:52 08/04/21 21:52 Lab Results 08/04/21 08/04/21 08/04/21 Range/Units 20:11 21:52 21:52 WBC 4.7 (3.8-10.6) k/uL RBC 2.99 L (4.30-5.90) m/uL Hgb 9.0 L (13.0-17.5) gm/dL Hct 27.8 L (39.0-53.0) % MCV 92.9 (80.0-100.0) fL MCH 30.1 (25.0-35.0) pg MCHC 32.4 (31.0-37.0) g/dL RDW 16.6 H (11.5-15.5) % Plt Count 221 (150-450) k/uL MPV 7.5 Neutrophils % 78 % Lymphocytes % 13 % Monocytes % 5 % Eosinophils % 1 % Basophils % 0 % Neutrophils # 3.7 (1.3-7.7) k/uL Lymphocytes # 0.6 L (1.0-4.8) k/uL Monocytes # 0.2 (0-1.0) k/uL Eosinophils # 0.1 (0-0.7) k/uL Basophils # 0.0 (0-0.2) k/uL Anisocytosis Slight Sodium 138 (137-145) mmol/L Potassium 4.5 (3.5-5.1) mmol/L Chloride 107 (98-107) mmol/L Carbon Dioxide 24 (22-30) mmol/L Anion Gap 7 mmol/L BUN 8 L (9-20) mg/dL Creatinine 1.31 H (0.66-1.25) mg/dL Est GFR (CKD-EPI)AfAm 78 (>60 ml/min/1.73 sqM) Est GFR (CKD-EPI)NonAf 67 (>60 ml/min/1.73 sqM) Glucose 94 (74-99) mg/dL POC Glucose (mg/dL) 102 H (75-99) mg/dL POC Glu [employer] Arash Ryder Calcium 8.1 L (8.4-10.2) mg/dL Magnesium 1.3 L (1.6-2.3) mg/dL Total Bilirubin 0.8 (0.2-1.3) mg/dL AST 20 (17-59) U/L ALT 6 (4-49) U/L Alkaline Phosphatase 149 H (38-126) U/L Creatine Kinase <20 L (55-170) U/L Total Protein 5.6 L (6.3-8.2) g/dL Albumin 2.7 L (3.5-5.0) g/dL Urine Color Urine Appearance (Clear) Urine pH (5.0-8.0) Ur Specific [place] (1.001-1.035) Urine Protein (Negative) Urine Glucose (UA) (Negative) Urine Ketones (Negative) Urine Blood (Negative) Urine Nitrite (Negative) Urine Bilirubin (Negative) Urine Urobilinogen (<2.0) mg/dL Ur Leukocyte Esterase (Negative) 08/04/21 Range/Units 21:52 WBC (3.8-10.6) k/uL RBC (4.30-5.90) m/uL Hgb (13.0-17.5) gm/dL Hct (39.0-53.0) % MCV (80.0-100.0) fL MCH (25.0-35.0) pg MCHC (31.0-37.0) g/dL RDW (11.5-15.5) % Plt Count (150-450) k/uL MPV Neutrophils % % Lymphocytes % % Monocytes % % Eosinophils % % Basophils % % Neutrophils # (1.3-7.7) k/uL Lymphocytes # (1.0-4.8) k/uL Monocytes # (0-1.0) k/uL Eosinophils # (0-0.7) k/uL Basophils # (0-0.2) k/uL Anisocytosis Sodium (137-145) mmol/L Potassium (3.5-5.1) mmol/L Chloride (98-107) mmol/L Carbon Dioxide (22-30) mmol/L Anion Gap mmol/L BUN (9-20) mg/dL Creatinine (0.66-1.25) mg/dL Est GFR (CKD-EPI)AfAm (>60 ml/min/1.73 sqM) Est GFR (CKD-EPI)NonAf (>60 ml/min/1.73 sqM) Glucose (74-99) mg/dL POC Glucose (mg/dL) (75-99) mg/dL POC Glu [employer] ID Calcium (8.4-10.2) mg/dL Magnesium (1.6-2.3) mg/dL Total Bilirubin (0.2-1.3) mg/dL AST (17-59) U/L ALT (4-49) U/L Alkaline Phosphatase (38-126) U/L Creatine Kinase (55-170) U/L Total Protein (6.3-8.2) g/dL Albumin (3.5-5.0) g/dL Urine Color Yellow Urine Appearance Clear (Clear) Urine pH 5.0 (5.0-8.0) Ur Specific [place] 1.008 (1.001-1.035) Urine Protein Trace H (Negative) Urine Glucose (UA) Negative (Negative) Urine Ketones Negative (Negative) Urine Blood Negative (Negative) Urine Nitrite Negative (Negative) Urine Bilirubin Negative (Negative) Urine Urobilinogen <2.0 (<2.0) mg/dL Ur Leukocyte Esterase Negative (Negative) - EKG Data EKG Comments: EKG demonstrates sinus tachycardia with a rate of 100. [place] interval 144. QRS [address] depression in V3 through V6. No acute ST segment elevation Disposition Clinical Impression: New onset seizure, Hypomagnesemia, Dehydration Disposition: ADMITTED IP TO [facility] Condition: Stable Is patient prescribed a controlled substance at d/c from ED?: No Decision to Admit Reason: Admit from EC Decision Date: 08/04/21 Decision Time: 23:35
[2021-08-04 22:07] LABS: Appearance,Urine Clear (Clear); Bilirubin,Urine Negative (Negative); Blood,Urine Negative (Negative); Color,Urine Yellow; Glucose,Urine (UA) Negative (Negative); Ketones,Urine Negative (Negative); Leukocyte Esterase,Urine Negative (Negative); Nitrite,Urine Negative (Negative); Protein,Urine Trace (Negative); Specific Gravity,Urine 1.008 (1.001-1.035); Urobilinogen,Urine <2.0 mg/dL (<2.0)
[2021-08-04 22:16] LABS: Anisocytosis Slight; Basophils % (A) 0 %; Eosinophils # (A) 0.1 k/uL (0-0.7); Eosinophils % (A) 1 %; HCT 27.8 % (39.0-53.0); Lymphocytes # (A) 0.6 k/uL (1.0-4.8); Lymphocytes % (A) 13 %; MCH 30.1 pg (25.0-35.0); MCHC 32.4 g/dL (31.0-37.0); MCV 92.9 fL (80.0-100.0); Mean Platelet Volume 7.5; Monocytes # (A) 0.2 k/uL (0-1.0); Monocytes % (A) 5 %; Neutrophils # (A) 3.7 k/uL (1.3-7.7); Neutrophils % (A) 78 %; Platelet Count 221 k/uL (150-450); RBC 2.99 m/uL (4.30-5.90); RDW 16.6 % (11.5-15.5); WBC 4.7 k/uL (3.8-10.6)
[2021-08-04 22:22] LABS: ALT 6 U/L (4-49); AST 20 U/L (17-59); African American GFR (CKD) 78 (>60 ml/min/1.73 sqM); Albumin 2.7 g/dL (3.5-5.0); Alkaline Phosphatase 149 U/L (38-126); Anion Gap 7 mmol/L; Blood Urea Nitrogen 8 mg/dL (9-20); Calcium 8.1 mg/dL (8.4-10.2); Carbon Dioxide 24 mmol/L (22-30); Chloride 107 mmol/L (98-107); Creatine Kinase <20 U/L (55-170); Glucose 94 mg/dL (74-99); Magnesium 1.3 mg/dL (1.6-2.3); Non-African American GFR(CKD) 67 (>60 ml/min/1.73 sqM); Potassium 4.5 mmol/L (3.5-5.1); Sodium 138 mmol/L (137-145); Total Bilirubin 0.8 mg/dL (0.2-1.3); Total Protein 5.6 g/dL (6.3-8.2)
--- NOTE | 2021-08-04 22:58 | CT ---
EXAMINATION TYPE: CT brain wo con DATE OF EXAM: 08/04/2021 COMPARISON: None HISTORY: sezuire activity CT DLP: 1098.4 mGycm Automated exposure control for dose reduction was used. Images of the brain obtained without contrast. Ventricles and sulci appear normal. There is no mass effect or midline shift. There is no sign of int racranial hemorrhage. The calvarium is intact. Skull base is intact. There is normal aeration of the mastoid sinuses. IMPRESSION: Negative unenhanced head CT scan.
[2021-08-04] MEDS ORDERED: MAGNESIUM SULFATE-D5W PMX 1 GM in DEXTROSE/WATER 1 100ML.BAG IVPB ONE (23:23)
[2021-08-04] MEDS ORDERED: NALOXONE 0.4 MG/ML 1 ML VIAL IV PRN (23:35)
[2021-08-05] MEDS: SODIUM CHLORIDE 0.9% 1,000 ML IV SCH ×2 (01:21→22:31)
[2021-08-05] MEDS ORDERED: MELATONIN 5 MG TABLET PO PRN (02:26)
[2021-08-05] MEDS ORDERED: Magnesium Replacement Protocol 1 EACH MISC MISCELLANE PRN (03:31)
[2021-08-05] MEDS: MAGNESIUM SULFATE-D5W PMX 1 GM in DEXTROSE/WATER 1 100ML.BAG IVPB SCH ×3 (04:08→08:10)
[2021-08-05] MEDS ORDERED: busPIRone HCl 10 MG TAB PO PRN (07:36)
[2021-08-05] MEDS ORDERED: ONDANSETRON 4 MG TAB PO PRN (07:36)
[2021-08-05] MEDS: SODIUM BICARBONATE TAB 650 MG TAB PO SCH ×4 (08:10→22:34)
[2021-08-05] MEDS: AMOXIC-POT CLAV 875-125MG 1 EACH TAB PO SCH ×2 (08:10→22:31)
[2021-08-05] MEDS: ASCORBIC ACID 500 MG TAB PO SCH (08:10)
[2021-08-05] MEDS: CHOLECALCIFEROL 25 MCG (1000 IU) TABLET PO SCH (08:10)
[2021-08-05] MEDS ORDERED: LOPERAMIDE 2 MG CAP PO PRN (09:00)
[2021-08-05 11:12] LABS: Anisocytosis Slight; Basophils % (A) 1 %; Eosinophils # (A) 0.1 k/uL (0-0.7); Eosinophils % (A) 3 %; HGB 9.4 gm/dL (13.0-17.5); Lymphocytes % (A) 23 %; MCH 30.2 pg (25.0-35.0); MCHC 32.3 g/dL (31.0-37.0); MCV 93.6 fL (80.0-100.0); Monocytes # (A) 0.3 k/uL (0-1.0); Monocytes % (A) 8 %; Neutrophils # (A) 2.7 k/uL (1.3-7.7); Neutrophils % (A) 63 %; Platelet Count 218 k/uL (150-450); RDW 16.3 % (11.5-15.5); WBC 4.3 k/uL (3.8-10.6)
[2021-08-05 13:23] VITALS: BMI 31.6
--- NOTE | 2021-08-05 18:05 | P.CN ---
Psychiatric Consult - . 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 REASON FOR REFERRAL: Psychiatry was consulted for psychiatric med management HISTORY OF PRESENT ILLNESS: The patient presented to the hospital once again yesterday shortly after he was just discharged earlier that day. Apparently patient had a witnessed seizure at home when he was sitting down and his eyes were rolling back in his head and was jerking, which lasted several seconds and then resolved. Patient was brought back in the hospital. He was just in the hospital for dehydration and infection treated with antibiotics. Patient was seen by psychiatry in his previous hospitalization and was placed on Remeron and BuSpar to help with his anxiety and mood and insomnia. Patient was taken the medication during hospitalization and discharged with a supply. She and computed tomography scan of his head was negative for any acute changes. Patient's nurse states that patient has been calm and cooperative and not reporting any more seizures since being in the hospital. Patient was seen at the bedside today and was with his and his brother. His described patient sitting in a chair and having a seizure and shaking and losing consciousness, minimal tongue biting, no loss of bladder or bowel. She states that she called 911 and patient was brought back to the hospital immediately. She states that he was fairly confused for a while before returning back to his baseline. As per patient, states that he remembers "dozing off" while sitting in the chair and states that he doesn't remember what happened afterwards and remembers waking up in the hospital. He states that he still has mild depression and some anxiety and states that the BuSpar did help somewhat. Patient claims that he is agreeable to continue on with the BuSpar however was noted that the risk of Remeron is likely higher for potential seizure and wants to stop this. [employer]amer spoke with patient about other medication options to help with his mood sleep and anxiety however patient claims that he rather go to outpatient therapy instead. At this time patient denies any suicidal or homical ideations, intent or plan. Patient denies any auditory, visual hallucinations and denies any paranoia or delusions. Patients admits to using no recreational drugs or cigarettes. PAST PSYCHIATRIC HISTORY: Patient has a a history of anxiety and depression. Patient denies being on any psychiatric medications, however patient was prescribed Remeron and BuSpar his last hospitalization. Patient denies any previous psychiatric hospitalizations. Patient denies any psychiatric outpatient follow-up. Patient denies any history of suicide attempts in the past. PAST MEDICAL HISTORY: As per medicine H&P. ALLERGIES: as per EMR. CHEMICAL DEPENDENCY HISTORY: as per HPI. FAMILY PSYCHIATRIC/SUBSTANCE USE HISTORY: denies SOCIAL HISTORY: Patient was born and raised in [facility]. He states that he moved to [place] and then moved back to [place]. He claims that he completed high school and did "2 college degrees". 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 He is currently lives at house and has 1 kid. He denies any legal history. MENTAL STATUS EXAM: General Appearance: Patient appears to be overweight, long kimble, stated age is alert, pleasant, and attempts to be cooperative. Patient appears to have fair hygiene and grooming wearing hospital gown with fair eye contact. Behavior: Patient is calmly lying in bed without any agitated behavior. Cooperative. Speech: Patient's speech is fluent and nonpressured. Mood/Affect: Patient reports their mood is "the same", affect is congruent Suicidality/Homicidality: Patient denies having any suicidal or homicidal ideation intent or plan. Perceptions: Patient denies any visual hallucinations and denies any auditory hallucinations Though content/process: There is no evidence of any delusional thought content and thought process is linear and goal-directed. Future oriented. Memory and concentration: AOX3, grossly intact for the purposes of this session. Can spell "WORLD" backwards Judgment and insight: Fair IMPRESSIONS: Major depressive disorder, mild Generalized anxiety disorder PLAN: -At this time patient DOES NOT meet criteria for inpatient psychiatric admission. -Would recommend the following medication changes/additions: melatonin scheduled 5 mg daily at bedtime for sleep. Discontinue Remeron as it most likely was the reason for the seizure. patient is comfortable continuing with BuSpar 10 mg 3 times a day when necessary for anxiety. Spoke with patient in great length about the side effects and benefits of these medications including risk for seizure even with buspar however patient is agreeable to take buspar as needed. -Provide patient with outpatient mental health/psychiatry resources for appropriate follow up upon discharge. Patient is interested in getting involved in outpatient therapy. -Communicated plan to patient's nurse -appreciate neurology recommendations. -At this time psychiatry will sign off. - Any urgent concerns or questions, please contact the mental health unit.
--- NOTE | 2021-08-05 18:21 | EEG ---
ELECTROENCEPHALOGRAM REPORT DATE OF SERVICE: 08/05/2021 PREAMBLE: This is a 41-year-old male with new onset seizure. CURRENT MEDICATIONS: Augmentin, vitamin C, vitamin D, BuSpar, Imodium, melatonin, magnesium, and Zofran. EEG FINDINGS: A 21 channel digital EEG recorded with video competent, utilizing 10/20 international system with referential and bipolar montages. Background consists of well developed, well regulated, predominantly 10-11 hertz alpha activity, seen in the posterior head regions bilaterally. Background seems to be reactive to eye opening and closing. Some fast frequency activity seen in the frontal region. Some intermixed fast frequency beta activity was also seen in the posterior head region as well. Photic driving response was seen with some flash frequencies. Hyperventilation revealed no abnormalities. Drowsiness was seen with appearance of bilaterally symmetric theta frequency rhythm. Some stage 2 sleep was seen with presence of sleep spindles and vertex waves. No focal or generalized epileptiform activity was seen. IMPRESSION: This is a normal EEG. Slightly excessive fast frequency beta activity suggests medication effect. Otherwise, no focal, lateralized or epileptiform activity was seen. MMODL / IJN: [id number] / LATISHA
[2021-08-05] MEDS ORDERED: LORazepam 2 MG/ML INJ IV STA (19:06)
--- NOTE | 2021-08-05 20:13 | P.HPIM ---
History of Present Illness This is a pleasant 41 years old male with multiple medical problems, he is known to me from multiple previous admissions starting back from 05/25/2021 where he came for abdominal pain, he has history of Crohn disease and he found evidence of bowel obstruction with pneumoperitoneum and he underwent exploratory laparotomy with ileocolectomy for him to right colon and ileum and right lower quadrant abdominal abscess status post washout. He has prolonged course and multiple admissions related to his surgical problem, surgical wound, with infection receiving prolonged course of antibiotics and his been evaluated by infectious disease team and currently is kept on Augmentin. He was recently admitted and discharged from this facility yesterday and her surgery team 07/28- 08/04 admitted for nausea and vomiting with lack of appetite and dehydration. He was having some mental health issues related to mild major depression and gen eralized anxiety disorder per psychiatric evaluation on the previous admission and he was started on Remeron and BuSpar as well as melatonin. Also Ativan is given for the patient to help his anxiety and appetite and it was started to benefit and patient then discharge yesterday how ever Ativan was not continued upon discharge. After he went home the same evening he developed seizure-like activity, patient could not remember what happened, he was sitting in the chair when this happened about 7 PM witnessed by his stating that he developed shakiness all over his body for about 1 minute and he was confused, he woke up in the emergency room which he remembers. Currently is fully awake and oriented denies any headache or weakness or numbness On admission Vitas looks stable. Labs including CBC and BMP and liver enzymes reviewed and they looks stable. Hemoglobin 9.0, WBC normal 4.7. Platelet count normal. Creatinine 1.3 which is at his baseline Magnesium 1.3, replaced. Liver enzymes are significantly elevated. Urinalysis is negative for infection. CT of brain: No acute process. EKG showing sinus tachycardia at [address]-T changes In the emergency room and received Ativan 1 mg IV, admitted with neurology consult Review of Systems CONSTITUTIONAL: No fever, no malaise, no fatigue. HEENT: No recent visual problems or hearing problems. Denied any sore throat. CARDIOVASCULAR: No orthopnea, PND, no palpitations, no syncope. PULMONARY: No shortness of breath, no cough, no hemoptysis. GASTROINTESTINAL: No diarrhea, no nausea, no vomiting, no abdominal pain. Normoactive bowel sounds. NEUROLOGICAL: No headaches, no weakness, no numbness. HEMATOLOGICAL: Denies any bleeding or petechiae. GENITOURINARY: Denies any burning micturition, frequency, or urgency. MUSCULOSKELETAL/RHEUMATOLOGICAL: Denies any joint pain, swelling, or any muscle pain. ENDOCRINE: Denies any polyuria or polydipsia. Past Medical History Past Medical History: No Reported History Additional Past Medical History / Comment(s): Chron's disease, recently had surgery for chron's with peritoneal abscess, covid + 05/17/21. History of Any Multi-Drug Resistant Organisms: None Reported Past Surgical History: Bowel Resection, Hernia Repair Additional Past Surgical History / Comment(s): 05/28/21 ileocolectomy with washout pf pertioneal abscess, R inguinal hernia repair. Past Anesthesia/Blood Transfusion Reactions: No Reported Reaction Past Psychological History: No Psychological Hx Reported Smoking Status: Former smoker Past Alcohol Use History: Occasional Past Drug Use History: None Reported - Past Family History Father Family Medical History: No Reported History Additional Family Medical History / Comment(s): Father is healthy Mother Family Medical History: Eye Disorder Additional Family Medical History / Comment(s): Mother has glaucoma Medications and Allergies Home Medications Medication Instructions Recorded Confirmed Type Albuterol Sulfate [Albuterol 2 puff PO RT-Q6H PRN 06/19/21 08/04/21 History Sulfate Hfa] Ascorbic Acid [Vitamin C] 500 mg PO DAILY 06/19/21 08/04/21 History Cholecalciferol [Vitamin D3 (25 50 mcg PO DAILY 06/19/21 08/04/21 History Mcg = 1000 Iu)] Sodium Bicarbonate Tab 650 mg PO QID #120 tab 07/18/21 08/04/21 Rx Melatonin 5 mg PO HS PRN 07/28/21 08/04/21 History Ondansetron [Zofran] 4 mg PO Q4H PRN 07/28/21 08/04/21 History Amoxicillin/Potassium Clav 1 tab PO Q12HR 10 Days #20 tab 08/03/21 08/04/21 Rx [Augmentin 875-125 Tablet] Loperamide [Imodium] 2 mg PO QID #30 cap 08/03/21 08/04/21 Rx Mirtazapine [Remeron] 15 mg PO HS #30 tab 08/03/21 08/04/21 Rx busPIRone HCl [Buspar] 10 mg PO TID PRN #30 tab 08/03/21 08/04/21 Rx Allergies Allergy/AdvReac Type Severity Reaction Status Date / Time acetaminophen [From Tylenol] Allergy Chest Pain Verified 08/04/21 20:49 Physical Exam Vitals: Vital Signs Temp Pulse Pulse Resp BP BP Pulse Ox 08/05/21 02:00 98.3 F 70 18 113/81 100 08/05/21 00:35 98.3 F 71 18 104/74 99 08/04/21 23:15 68 18 112/84 98 08/04/21 21:15 74 18 126/86 99 08/04/21 20:10 98.1 F 95 18 129/88 99 Intake and Output 08/04/21 08/05/21 08/05/21 22:59 06:59 14:59 Intake Total 637.5 Output Total 300 Balance 337.5 Intake: Intake, IV Titration 637.5 Amount Magnesium Sulfate-D5w Pmx 300 1 gm In Dextrose/Water 1 100ml.bag @ 100 mls/hr IVPB Q1H [facility] Rx#: [id number] Sodium Chloride 0.9% 1, 337.5 000 ml @ 75 mls/hr IV . [id number] [facility] Rx#:[id number] Output: Stool 300 Other: Weight 97.069 kg 97.069 kg GENERAL: The patient is alert and oriented x3, not in any acute distress. Well developed, well nourished. HEENT: Pupils are round and equally reacting to light. EOMI. No scleral icterus. No conjunctival pallor. Normocephalic, atraumatic. No pharyngeal erythema. No thyromegaly. CARDIOVASCULAR: S1 and S2 present. No murmurs, rubs, or gallops. PULMONARY: Chest is clear to auscultation, no wheezing or crackles. ABDOMEN: Soft, nontender, nondistended, normoactive bowel sounds. No palpable organomegaly. MUSCULOSKELETAL: No joint swelling or deformity. EXTREMITIES: No cyanosis, clubbing, or pedal edema. NEUROLOGICAL: Gross neurological examination did not reveal any focal deficits. SKIN: No rashes. No petechiae Results CBC & Chem 7: 08/05/21 10:33 08/05/21 10:33 Labs: Abnormal Lab Results - Last 24 Hours (Table) 08/04/21 08/04/21 08/04/21 Range/Units 20:11 21:52 21:52 RBC 2.99 L (4.30-5.90) m/uL Hgb 9.0 L (13.0-17.5) gm/dL Hct 27.8 L (39.0-53.0) % RDW 16.6 H (11.5-15.5) % Lymphocytes # 0.6 L (1.0-4.8) k/uL BUN 8 L (9-20) mg/dL Creatinine 1.31 H (0.66-1.25) mg/dL POC Glucose (mg/dL) 102 H (75-99) mg/dL Calcium 8.1 L (8.4-10.2) mg/dL Magnesium 1.3 L (1.6-2.3) mg/dL Alkaline Phosphatase 149 H (38-126) U/L Creatine Kinase <20 L (55-170) U/L Total Protein 5.6 L (6.3-8.2) g/dL Albumin 2.7 L (3.5-5.0) g/dL Urine Protein (Negative) 08/04/21 Range/Units 21:52 RBC (4.30-5.90) m/uL Hgb (13.0-17.5) gm/dL Hct (39.0-53.0) % RDW (11.5-15.5) % Lymphocytes # (1.0-4.8) k/uL BUN (9-20) mg/dL Creatinine (0.66-1.25) mg/dL POC Glucose (mg/dL) (75-99) mg/dL Calcium (8.4-10.2) mg/dL Magnesium (1.6-2.3) mg/dL Alkaline Phosphatase (38-126) U/L Creatine Kinase (55-170) U/L Total Protein (6.3-8.2) g/dL Albumin (3.5-5.0) g/dL Urine Protein Trace H (Negative) Thrombosis Risk Factor Assmnt - Choose All That Apply Any of the Below Risk Factors Present?: Yes Each Factor Represents 1 point: Age 41-60 years Other Risk Factors: No Other congenital or acquired thrombophilia - If yes, enter type in comment: No Thrombosis Risk Factor Assessment Total Risk Factor Score: 1 Thrombosis Risk Factor Assessment Level: Low Risk Assessment and Plan Assessment: New-onset seizure, suspected secondary to medication eg Remeron High ileostomy output, started on Imodium, with ongoing dehydration requiring outpatient hydration and [facility] team. History of Crohn disease status post right colectomy and ileostomy with postop intra-abdominal infection, currently kept on Augmentin Chronic kidney disease stage III Possible liver cirrhosis Hypertension Plan: This is a pleasant 41 days old male who presents with seizure Continue with Ativan as needed Neurology consult. Case was discussed with the neurologist recommended MRI of the brain without contrast We will consult psychiatric service to reassess medication. Regarding his surgical wound infection and bowel disease his been fully evaluated by surgery team and infectious disease and cleared for discharge yesterday, therefore, to continue with this implant of continue with antibiotic and other medication and follow-up with both services as an outpatient. He was discharged on Augmentin 10 days (till 08/14), an appointment with Dr. Castro is already set up for him on 08/12/2021 at 11:50am Labs and medication were reviewed.. Continue same treatment. Continue with symptomatic treatment. Resume home medication. Monitor lytes and vitals. DVT and GI prophylaxis. Further recommendations depends on the clinical course of the patient DVT prophylaxis: Subcutaneous heparin GI Prophylaxis: Pepcid Prognosis is guarded
[2021-08-05] MEDS ORDERED: MELATONIN 5 MG TABLET PO SCH (21:00)
--- NOTE | 2021-08-05 23:29 | P.CNNES ---
History of Present Illness Consult date: 08/05/21 Requesting physician: Erika Warner Reason for Consult: New onset seizure History of Present Illness: Patient is a 41-year-old male, with no previous history of seizure, has been recently very sick with multiple admissions to the hospital. Patient has a seizure witnessed by his . Patient states that he has no memory of the seizure. He was just sleeping in his recliner and woke up in the ambulance. Patient's mentions that he was laying in the recliner, napping. She notices that at around 7:20 PM, his eyes were moving and he had a slight jerk, which he sometimes does. She was standing in front of him to wake him up, when he went into a blank stare and then had a seizure. His body tensed up, muscle started shaking and his face was distorted. The seizure lasted for less than a minute. Patient did bite his tongue on the right side, but there was no loss of control of urine. After the seizure he was snoring, face and lips turned blue. Patient's called 911. As per EMS flow sheet, when they arrived, patient was laying on the floor. Patient will alert to painful stimuli, breathing on h is own. Respiration 22. Saturation 100%. Lungs were clear. Patient's blood pressure the scene was 129/88, pulse rate 100, respirations 18, saturation 100%. Blood glucose 98. Patient arrived to the hospital in ambulance at 10:[address] head showed no acute process. I personally reviewed and agree with the findings. EKG shows sinus tachycardia with occasional supraventricular complexes. Blood test shows normal WBC hemoglobin 9.0, platelets 221. Sodium is normal electrolytes and normal renal functions normal. Creatinine 1.31 mildly elevated. Hepatic panel is normal. CK normal. Prolactin is elevated 20.3/17.7. UA negative. Patient has been very sick in the last few months. He was in the hospital for 2 months. After he was discharged, but for one and half weeks he stayed home and there was rehospitalized for 7 days, for dehydration and not eating. He was just discharged yesterday morning, had a seizure at home and came back yesterday evening. While in the hospital, he was just recently given 2 new medications including Remeron 15 mg tablet, which he has taken for 3 days. Also has taken BuSpar 10 mg once a day for 2 days. Patient denies any excessive caffeine intake. He has smoked 2 packs per week for 20 years, quit January 2021. Denies any alcohol use. Patient denies any history of seizure ever in his life. Review of Systems Generalized weakness, fatigue. Past Medical History Past Medical History: No Reported History Additional Past Medical History / Comment(s): Chron's disease, recently had surgery for chron's with peritoneal abscess, covid + 05/17/21. History of Any Multi-Drug Resistant Organisms: None Reported Past Surgical History: Bowel Resection, Hernia Repair Additional Past Surgical History / Comment(s): 05/28/21 ileocolectomy with washout pf pertioneal abscess, R inguinal hernia repair. Past Anesthesia/Blood Transfusion Reactions: No Reported Reaction Past Psychological History: No Psychological Hx Reported Smoking Status: Former smoker Past Alcohol Use History: Occasional Past Drug Use History: None Reported - Past Family History Father Family Medical History: No Reported History Additional Family Medical History / Comment(s): Father is healthy Mother Family Medical History: Eye Disorder Additional Family Medical History / Comment(s): Mother has glaucoma Medications and Allergies Home Medications Medication Instructions Recorded Confirmed Type Albuterol Sulfate [Albuterol 2 puff PO RT-Q6H PRN 06/19/21 08/04/21 History Sulfate Hfa] Ascorbic Acid [Vitamin C] 500 mg PO DAILY 06/19/21 08/04/21 History Cholecalciferol [Vitamin D3 (25 50 mcg PO DAILY 06/19/21 08/04/21 History Mcg = 1000 Iu)] Sodium Bicarbonate Tab 650 mg PO QID #120 tab 07/18/21 08/04/21 Rx Melatonin 5 mg PO HS PRN 07/28/21 08/04/21 History Ondansetron [Zofran] 4 mg PO Q4H PRN 07/28/21 08/04/21 History Amoxicillin/Potassium Clav 1 tab PO Q12HR 10 Days #20 tab 08/03/21 08/04/21 Rx [Augmentin 875-125 Tablet] Loperamide [Imodium] 2 mg PO QID #30 cap 08/03/21 08/04/21 Rx Mirtazapine [Remeron] 15 mg PO HS #30 tab 08/03/21 08/04/21 Rx busPIRone HCl [Buspar] 10 mg PO TID PRN #30 tab 08/03/21 08/04/21 Rx Allergies Allergy/AdvReac Type Severity Reaction Status Date / Time acetaminophen [From Tylenol] Allergy Chest Pain Verified 08/04/21 20:49 Physical Examination - Vital Signs Vital Signs: Vital Signs Temp Pulse Pulse Resp BP BP Pulse Ox 08/05/21 14:00 97.9 F 65 16 102/70 97 08/05/21 08:00 97.6 F 63 16 115/76 98 08/05/21 02:00 98.3 F 70 18 113/81 100 08/05/21 00:35 98.3 F 71 18 104/74 99 08/04/21 23:15 68 18 112/84 98 Intake and Output 08/05/21 08/05/21 08/06/21 14:59 22:59 06:59 Intake Total 1080 Output Total 775 Balance -775 1080 Intake: Oral 1080 Output: Urine 575 Other 200 Other: # Voids 2 # Bowel Movements 2 Weight 97.069 kg Patient is a middle aged male, in no acute distress. Patient is moderately obese. Patient is alert awake oriented to time place and person. He appears slightly encephalopathic. Speech and language functions are normal. Attention, concentration and fund of knowledge is adequate. Detail testing deferred. On cranial examination, pupils are round and reacting to light, visual moran are full on confrontation, extraocular muscles are intact with no nystagmus. Face is symmetric, tongue protrudes to the midline. Palatal elevation and sensation normal, hearing and shoulder shrug normal, facial sensation normal. S houlder shrug normal. On muscle strength testing, there is no pronator drift and the strength is no rmal in arms and legs distally and proximally. Deep tendon reflexes are symmetric, 1 in the upper limbs, 1+ in the lower limbs and plantars downgoing. Sensory to touch is equal with no neglect. Cerebellar function showed no ataxia for [id number] testing. Tone and bulk of muscles normal. Gait not checked. On general examination, there is no carotid bruit or murmur, S1-S2 audible. Abdomen is soft nontender. No organomegaly. Bowel sounds present. He has a colostomy. Chest is clear. There is peripheral edema. Results - Laboratory Findings CBC and BMP: 08/05/21 10:33 08/05/21 10:33 Abnormal Lab Findings: Abnormal Labs 08/04/21 08/04/21 08/04/21 20:11 21:52 21:52 RBC 2.99 L Hgb 9.0 L Hct 27.8 L RDW 16.6 H Lymphocytes # 0.6 L Sodium BUN 8 L Creatinine 1.31 H POC Glucose (mg/dL) 102 H Calcium 8.1 L Magnesium 1.3 L Alkaline Phosphatase 149 H Creatine Kinase <20 L Total Protein 5.6 L Albumin 2.7 L Prolactin 20.300 H Urine Protein 08/04/21 08/05/21 08/05/21 21:52 10:33 10:33 RBC 3.10 L Hgb 9.4 L Hct 29.0 L RDW 16.3 H Lymphocytes # Sodium 136 L BUN 7 L Creatinine 1.26 H POC Glucose (mg/dL) Calcium 8.0 L Magnesium Alkaline Phosphatase Creatine Kinase Total Protein Albumin Prolactin Urine Protein Trace H 08/05/21 10:33 RBC Hgb Hct RDW Lymphocytes # Sodium BUN Creatinine POC Glucose (mg/dL) Calcium Magnesium 2.7 H Alkaline Phosphatase Creatine Kinase Total Protein Albumin Prolactin Urine Protein Assessment and Plan Assessment: * New onset witnessed grand mal seizure while asleep. Exact cause is uncertain. Patient however was started on Remeron 15 mg at bedtime, and has taken 3 doses. He also has taken 2 doses of Buspar 10 mg. Uncertain if the seizure is provoked by one of these medications, perhaps Remeron. * History of Crohn's disease, status post ileostomy. * Chronic renal disease * Chronic liver disease * Hypertension * Obesity Plan: * EEG was performed, which is normal. No focal, lateralized or epileptiform activity was seen. * MRI of the brain without contrast rule out secondary causes of seizure. * If the MRI is normal, then there is no indication to start AED. Seizure perhaps provoked from Remeron. Would recommend stopping Remeron. * Discussed with primary physician as well as psychiatrist. * Patient informed of [place] state law of no driving unless seizure free for 6 months, climbing ladders, operate dangerous machinery or unsupervised swimming. * Neurologically clear for discharge if the MRI comes back normal. * Thank you for the consult.
[2021-08-06] MEDS: CHOLECALCIFEROL 25 MCG (1000 IU) TABLET PO SCH (08:30)
[2021-08-06] MEDS: ASCORBIC ACID 500 MG TAB PO SCH (08:30)
[2021-08-06] MEDS: AMOXIC-POT CLAV 875-125MG 1 EACH TAB PO SCH (08:30)
[2021-08-06] MEDS: SODIUM BICARBONATE TAB 650 MG TAB PO SCH ×2 (08:30→12:45)
[2021-08-06] MEDS: SODIUM CHLORIDE 0.9% 1,000 ML IV SCH (08:46)
--- NOTE | 2021-08-06 12:07 | MR ---
MRI brain without contrast. HISTORY: New onset symptoms COMPARISON: None. TECHNIQUE: Multiecho multiplanar images the brain were obtained without contrast. FINDINGS: On the T1-weighted sagittal images, the midline structures including the craniovertebral junction rel ationships appear normal. The ventricles, basal cisterns and sulci over convexities are within normal limits and there is no ma ss, mass effect or shift of midline structures. There are 2 tiny foci of abnormal increased signal intensity in the white matter of the frontal lobes which are nonspecific white matter abnormalities and most likely reflect focal areas chronic ischemi c change. Based on diffusion-weighted imaging there is no evidence of diffusion restriction or acute ischemic e vent. Grossly the posterior fossa is normal.. Intraorbital contents are normal and symmetric. Visualized paranasal sinuses are well aerated. IMPRESSION: Minimal nonspecific white matter changes in the frontal lobes as described above. No other significan t abnormality seen.
[2021-08-06 15:10] VITALS: BP 115/84; PULSE 87; RESP 18; TEMP 98.9
--- NOTE | 2021-08-07 00:44 | P.DS ---
Providers Date of admission: 08/04/21 23:36 Attending physician: Carrie Parikh Consults: 08/04/21 23:44 Consult Physician Urgent Consulting Provider: Facundo Randhawa Consult Reason/Comments: new onset seizure Do you want consulting provider notified?: Yes 08/05/21 06:03 Consult Physician Urgent Consulting Provider: Rajesh Goodwin Consult Reason/Comments: re-assess mental health medication Do you want consulting provider notified?: Yes Primary care physician: Erin Luna MD Hospital Course: Diagnoses: New-onset seizure, suspected secondary to medication eg Remeron. High ileostomy output, started on Imodium, with ongoing dehydration requiring outpatient hydration and [facility] team. History of Crohn disease status post right colectomy and ileostomy with postop intra-abdominal infection, currently kept on Augmentin Chronic kidney disease stage III Possible liver cirrhosis Hypertension Hospital course: This is a pleasant 41 years old male with multiple medical problems, he is known to me from multiple previous admissions starting back from 05/25/2021 where he came for abdominal pain, he has history of Crohn disease and he found evidence of bowel obstruction with pneumoperitoneum and he underwent exploratory laparotomy with ileocolectomy for him to right colon and ileum and right lower quadrant abdominal abscess status post washout. He has prolonged course and multiple admissions related to his surgical problem, surgical wound, with infection receiving prolonged course of antibiotics and his been evaluated by infectious disease team and currently is kept on Augmentin. He was recently admitted and discharged from this facility yesterday and her surgery team 07/28- 08/04 admitted for nausea and vomiting with lack of appetite and dehydration. He was having some mental health issues related to mild major depression and generalized anxiety disorder per psychiatric evaluation on the previous admission and he was started on Remeron and BuSpar as well as melatonin. Also Ativan is given for the patient to help his anxiety and appetite and it was started to benefit and patient then discharge yesterday how ever Ativan was not continued upon discharge. After he went home the same evening he developed seizure-like activity, patient could not remember what happened, he was sitting in the chair when this happened about 7 PM witnessed by his stating that he developed shakiness all over his body for about 1 minute and he was confused, he woke up in the emergency room which he remembers. Currently is fully awake and oriented denies any headache or weakness or numbness. Patient evaluated by neurologist, MRI of the brain requesting and was negative for acute process. EEG showing no epileptic form discharge. No need for antiepileptic medication upon discharge per neurologist as it is thought secondary to medication effect and there is no more seizures. This medication was stopped including the Remeron and the BuSpar and patient was informed to keep away from them and he agrees. On the day of discharge patient states that his appetite is good and he denies any other new symptoms and is willing to go home. No chest pain or dyspnea. No fever. No change in urine or bowel habits. I talked with Dr. Randhawa the neurologist today over the phone and he cleared the patient for discharge Problems and management plan were discussed with the patient and he verbalized understanding and acceptance Patient was found stable and can be discharged home however he needs follow-up as an outpatient. Patient was instructed to follow up with PCP Dr. Cheryl Khan within one week and patient agrees Patient was instructed to follow up with Dr. Tan this Sunday and Dr. Nguyen on the appointment date he already has and he agrees. Also patient was instructed to follow up with the neurologist Dr. Krishnamurthy in one week and he agrees to call and make appointment Physical exam Gen: patient is a AAOx3, no distress CVS: S1-S2, RRR, no murmur Lungs: B/L CTA, no wheezing -Abdomen: soft, no distention, no tenderness, positive bowel sounds. Abdomen wound healing. Ileostomy bag in a Place Extremity: no leg edema or induration Time spent more than 35 minutes Patient Condition at Discharge: Stable Plan - Discharge Summary Discharge Rx Participant: No New Discharge Prescriptions: Continue Loperamide [Imodium] 2 mg PO QID #30 cap Cholecalciferol [Vitamin D3 (25 Mcg = 1000 Iu)] 50 mcg PO DAILY Ascorbic Acid [Vitamin C] 500 mg PO DAILY Albuterol Sulfate [Albuterol Sulfate Hfa] 2 puff PO RT-Q6H PRN PRN Reason: Shortness Of Breath Sodium Bicarbonate Tab 650 mg PO QID #120 tab Ondansetron [Zofran] 4 mg PO Q4H PRN PRN Reason: Nausea Melatonin 5 mg PO HS PRN PRN Reason: Insomnia Amoxicillin/Potassium Clav [Augmentin 875-125 Tablet] 1 tab PO Q12HR 10 Days #20 tab Discontinued busPIRone HCl [Buspar] 10 mg PO TID PRN #30 tab PRN Reason: Anxiety Mirtazapine [Remeron] 15 mg PO HS #30 tab Discharge Medication List Albuterol Sulfate [Albuterol Sulfate Hfa] 2 puff PO RT-Q6H PRN 06/19/21 [History] Ascorbic Acid [Vitamin C] 500 mg PO DAILY 06/19/21 [History] Cholecalciferol [Vitamin D3 (25 Mcg = 1000 Iu)] 50 mcg PO DAILY 06/19/21 [History] Sodium Bicarbonate Tab 650 mg PO QID #120 tab 07/18/21 [Rx] Melatonin 5 mg PO HS PRN 07/28/21 [History] Ondansetron [Zofran] 4 mg PO Q4H PRN 07/28/21 [History] Amoxicillin/Potassium Clav [Augmentin 875-125 Tablet] 1 tab PO Q12HR 10 Days #20 tab 08/03/21 [Rx] Loperamide [Imodium] 2 mg PO QID #30 cap 08/03/21 [Rx] Follow up Appointment(s)/Referral(s): Erin Luna MD [Primary Care Provider] - 1-2 days Nursing,[place] [NON-STAFF] - As Needed & Infusion,[facility] [REFERRING] - 08/08/21 8:15 am (Go to the [facility] for hydration infusions every Sunday, Sunday, and Sunday for one month. ) Marco A Marsh MD [STAFF PHYSICIAN] - 08/12/21 11:50 am Kari Krishnamurthy MD [Medical Doctor] - 10 Days (neurologist , nerve doctor ) Patient Instructions/Handouts: Seizure/Epilepsy Discharge Instructions & Follow-Up Activity/Diet/Wound Care/Special Instructions: Resuming her previous diet Activity is restricted till you see your doctor Discharge Disposition: HOME SELF-CARE
== END 2021-08-06 15:12 | disposition home or self-care (01) | DRG 101 ==
LOC: EC 20:08 → 4SSUR 23:36
PROVIDERS: ADMIT Hospitalist; ATTEND Hospitalist
DX: G40.409 Other generalized epilepsy and epileptic syndromes, not intractable, without status epilepticus (principal); K50.90 Crohn's disease, unspecified, without complications; G47.00 Insomnia, unspecified; E66.9 Obesity, unspecified; T43.205A Adverse effect of unspecified antidepressants, initial encounter; R00.0 Tachycardia, unspecified; E83.42 Hypomagnesemia; N18.30 Chronic kidney disease, stage 3 unspecified; I12.9 Hypertensive chronic kidney disease with stage 1 through stage 4 chronic kidney disease, or unspecified chronic kidney disease; K76.9 Liver disease, unspecified; E86.0 Dehydration; Z88.6 Allergy status to analgesic agent; Z79.899 Other long term (current) drug therapy; Z86.16 Personal history of COVID-19; Z87.891 Personal history of nicotine dependence; Z90.49 Acquired absence of other specified parts of digestive tract; Z93.2 Ileostomy status; Z68.31 Body mass index [BMI] 31.0-31.9, adult; X58.XXXA Exposure to other specified factors, initial encounter; Z87.19 Personal history of other diseases of the digestive system
CPT/HCPCS: 36415; 70450; 70551; 80048; 80053; 81003; 82550; 83735; 84146; 85025; 93005; 95819; 96361; 96374; 99285